=== PATIENT | male | born 1955 | race Caucasian/White ===

== ENCOUNTER 2019-11-01 19:06 | Emergency (ER) | payer MEDICARE, BC ==
[2019-11-01 19:50] VITALS: BP 147/85; PULSE 69; RESP 18; TEMP 98.2
--- NOTE | 2019-11-01 21:31 | ED ---
General Adult HPI - General Chief complaint: GI Bleed Stated complaint: rectal bleeding Time Seen by Provider: 11/01/19 20:31 Source: patient Mode of arrival: ambulatory Limitations: no limitations - History of Present Illness Initial comments: Patient is a 64-year-old male presenting to the emergency Department with complaints of possible hemorrhoids. Patient states he has a history of intermittent constipation. Patient states he has had 2 hard bowel movements the last few days. Patient then noticed some blood after he wiped. Patient states he doesn't history of hemorrhoids and feeling like this is similar. Patient denies being on blood thinners. He states there is no active bleeding and no more than a mild amount of blood on the tissue. He states he has been using preparation H for the last 2 days with minor improvement. He denies any abdominal pain, fever, nausea, vomiting. He has no other complaints at this time. Upon arrival to the ER his vital signs are stable. - Related Data Home Medications Medication Instructions Recorded Confirmed metFORMIN HCL [Glucophage] 500 mg PO BID 05/24/14 07/23/15 Clindamycin [Cleocin] 150 mg PO BID 07/23/15 07/23/15 Multivit-Min/FA/Lycopen/Lutein 1 each PO DAILY 07/23/15 07/23/15 [Centrum Silver Tablet] Peridex(Dose Unknown) 1 applicate PO BID 07/23/15 07/23/15 amLODIPine BESYLATE/BENAZEPRIL 1 cap PO HS 07/23/15 07/23/15 [amLODIPine BESYLATE/BENAZEPRIL 5-20 mg] Previous Rx's Medication Instructions Recorded Hydrocortisone Cream 1 applic TOPICAL BID 7 Days #1 tube 11/01/19 [Hydrocortisone 2.5% Cream] Allergies Allergy/AdvReac Type Severity Reaction Status Date / Time cephalexin Allergy Itching Verified 11/01/19 19:50 cyclobenzaprine Allergy Chest Pain Verified 07/24/15 13:36 morphine AdvReac Hallucinati Verified 07/24/15 13:36 ons roaches Allergy Unknown Uncoded 07/23/15 14:42 Review of Systems ROS Statement: Those systems with pertinent positive or pertinent negative responses have been documented in the HPI. ROS Other: All systems not noted in ROS Statement are negative. Past Medical History Past Medical History: Diabetes Mellitus, Hypertension, Sleep Apnea/CPAP/BIPAP Additional Past Medical History / Comment(s): constipation, non healing left jaw. carpel tunnel. History of Any Multi-Drug Resistant Organisms: None Reported Past Surgical History: Hernia Repair Additional Past Surgical History / Comment(s): benign tumor removed lt lower jaw and artifical jaw inserted. cataract- bilat, sinus surgery. carpel tunnel surgery right wrist 1969'. Past Anesthesia/Blood Transfusion Reactions: Motion Sickness Past Psychological History: Anxiety Smoking Status: Never smoker Past Alcohol Use History: None Reported Past Drug Use History: None Reported - Past Family History Father Family Medical History: Cancer, Diabetes Mellitus Mother Family Medical History: CVA/TIA General Exam - General Exam Comments Initial Comments: GENERAL: Well-appearing, well-nourished and in no acute distress. HEAD: Atraumatic, normocephalic. EYES: Pupils equal round and reactive to light, extraocular movements intact, sclera anicteric, conjunctiva are normal. ENT: Nares patent, oropharynx clear without exudates. Moist mucous membranes. NECK: Normal range of motion, supple without lymphadenopathy or JVD. LUNGS: Breath sounds clear to auscultation bilaterally and equal. No wheezes rales or rhonchi. HEART: Regular rate and rhythm without murmurs, rubs or gallops. ABDOMEN: Soft, nontender, normoactive bowel sounds. No guarding, no rebound. No masses appreciated. EXTREMITIES: Normal range of motion, no pitting or edema. No clubbing or cyanosis. NEUROLOGICAL: Normal speech, normal gait. PSYCH: Normal mood, normal affect. SKIN: Warm, Dry, normal turgor, no rashes or lesions noted. Limitations: no limitations Rectal exam: Present: normal rectal tone, hemorrhoids (Internal and external hemorrhoid noticed. Very minor bleeding from the hemorrhoid.). Absent: fecal impaction, tenderness Course Vital Signs 11/01/19 19:45 Temperature 98.2 F Pulse Rate 69 Respiratory 18 Rate Blood Pressure 147/85 O2 Sat by Pulse 98 Oximetry Medical Decision Making - Medical Decision Making She is a 64-year-old male presenting with possible bleeding from hemorrhoids. He has a history of constipation as well as hemorrhoids. On exam patient has an internal and external hemorrhoid that has a very minor amount of blood in the area. Very minimal pain with palpation. Normal rectal tone. I discussed with patient that his constipation probably triggered his external hemorrhoids. Patient has been using preparation H and he will be given a prescription for hydrocortisone 2.5%. He will follow up with his PCP. He is in agreement with this plan of care. He is stable for discharge. Return parameters were discussed with the patient and he verbalized understanding. Disposition Clinical Impression: Bleeding hemorrhoids Disposition: HOME SELF-CARE Condition: Stable Instructions (If sedation given, give patient instructions): Hemorrhoids (ED) Additional Instructions: Please return to the Emergency Department if symptoms worsen or any other concerns. Use topical hydrocortisone cream as discussed. Continue with MiraLAX daily for 2-3 weeks. Follow-up with PCP. Prescriptions: Hydrocortisone Cream [Hydrocortisone 2.5% Cream] 1 applic TOPICAL BID 7 Days #1 tube Is patient prescribed a controlled substance at d/c from ED?: No Referrals: Priyank Mcnulty DO [Primary Care Provider] - 1-2 days
== END 2019-11-01 21:43 | disposition home or self-care (01) ==
LOC: EC 19:06
DX: K64.4 Residual hemorrhoidal skin tags (principal); K64.8 Other hemorrhoids; E11.9 Type 2 diabetes mellitus without complications; I10 Essential (primary) hypertension; G47.30 Sleep apnea, unspecified; Z88.1 Allergy status to other antibiotic agents; Z88.5 Allergy status to narcotic agent; Z88.8 Allergy status to other drugs, medicaments and biological substances; Z91.048 Other nonmedicinal substance allergy status; Z79.84 Long term (current) use of oral hypoglycemic drugs; Z79.899 Other long term (current) drug therapy; Z99.89 Dependence on other enabling machines and devices
CPT/HCPCS: 99283

== ENCOUNTER → 2023-02-26 | Outpatient (CLI) | payer MEDICARE, BC ==
--- NOTE | 2023-02-26 12:50 | P.PN ---
Subjective DATE: 02/26/2023 FOLLOW UP VISIT. Patient with obstructive sleep apnea hypopnea syndrome return to sleep center for follow-up visit. Recently patient had sleep study which documented obstructive sleep apnea hypopnea syndrome. Patient was initiated on PAP therapy and today is first visit after treatment was started. Patient was able to use PAP equipment every night for the whole night. Isolated results of sleep studies to patient in details The patient does not have significant problems with the mask, PAP pressure and humidification. Gridley sleepiness scale is increased to 17. I checked information from PAP unit. BPAP unit pressure maximal inspiratory pressure 20, minimal expiratory pressure 8, pressure-support 4, average pressure 14.5 /10.5 cm H2O. Usage is 97% and 77 % for more then 4 hours, average 6 hours per night. Leak is in high range of 39.5 l/m. Apnea Hypopnea Index is 8.8, which showed significant improvements comparing with the apnea-hypopnea index during diagnostic sleep study when it was 44.2 MEDICATIONS:1. Esciitalopram 10 mg once a day 2. Meclizine 3. Aspirin 81 mg once a day 4. Donepezil 10 mg once a day During physical exam: GENERAL: A pleasant patient without any distress. VITAL SIGNS: BP 120/74, HR 63, RR 16, weight 216.0, temperature 97.5, oxygen saturation at room air 97%. HEENT: PERRLA, EOMI.low position of soft palate, Mallapati 4 . NECK: Supple. No JVD. LUNGS: Clear to percussion and to auscultation. Good air exchange. No wheezing or rhonchi. HEART: S1, S2 regular. ABDOMEN: Soft and nontender.[] EXTREMITIES: No clubbing or cyanosis. INTELLIGENCE MANAGER: Awake, alert, and oriented x3. No focal deficit. Impressions: 1. Obstructive sleep apnea-hypopnea syndrome. Patient demonstrated great compliance with treatment, benefiting from treatment. 2. Episodes of vertigo. 3. History of Parkinson's disease. 4. History of depression. Plan: 1. Continue using PAP equipment every night for the whole night. Patient should use chinstrap additionally to nasal pillow mask to prevent leak. 2. To change air filter at least 1-2 times per month. 3. PAP unit should stay lower then position of the head. 4. Advised patient to remove all remaining water from humidifier canister daily and make it dry after each usage. Refill canister with fresh distilled water before each usage. 5. Sleep hygiene with regular time in bed for at least 8 hours. 6. Precautions related to driving. No driving if feel any sleepiness. 7. I will maintain prescription for PAP supplies including mask, tube, filters. 8. Follow up visit in 6 months or earlier if patient has any problems. 9. Watching weight. Thank you very much for allowing me to participate in the management of your patient. David Sanabria MD, PhD, FAASM. Diplomat of [place] [employer], Sleep Medicine Board by [place] [employer] [facility] [place]
== END ==
LOC: 3 N SLEEP 12:14
PROVIDERS: ATTEND Internal Medicine
DX: G47.33 Obstructive sleep apnea (adult) (pediatric) (principal); G20 Parkinson's disease; Z79.899 Other long term (current) drug therapy; F32.A Depression, unspecified; R42 Dizziness and giddiness; Z99.89 Dependence on other enabling machines and devices; Z79.82 Long term (current) use of aspirin; Z88.1 Allergy status to other antibiotic agents; Z88.5 Allergy status to narcotic agent; Z88.8 Allergy status to other drugs, medicaments and biological substances
CPT/HCPCS: 99212

== ENCOUNTER 2023-06-03 14:31 | Inpatient (IN) | payer MEDICARE, BC ==
--- NOTE | 2023-06-03 15:13 | CT ---
EXAMINATION TYPE: CT brain wo con DATE OF EXAM: 06/03/2023 COMPARISON: None HISTORY: Altered mental status CT DLP: 1100.4 mGycm Automated exposure control for dose reduction was used. FINDINGS: Mild to moderate generalized degenerative change. Low attenuation in the white matter compatible with remote or vascular ischemic disease. Hyperostosis of the calvarium. Craniocervical junction maintain ed. Sella turcica is normal. There is no evidence of acute hemorrhage or mass. Orbits are symmetric. Calcifications in the basal ganglia noted. IMPRESSION: MILD TO MODERATE DEGENERATIVE CHANGE WITH NO EVIDENCE OF ACUTE HEMORRHAGE OR MASS EFFECT.
[2023-06-03 16:10] LABS: Basophils % (A) 0 %; Eosinophils # (A) 0.1 k/uL (0-0.7); Eosinophils % (A) 1 %; HCT 44.5 % (39.0-53.0); HGB 14.9 gm/dL (13.0-17.5); Lymphocytes # (A) 1.2 k/uL (1.0-4.8); Lymphocytes % (A) 15 %; MCH 28.8 pg (25.0-35.0); MCHC 33.6 g/dL (31.0-37.0); MCV 85.9 fL (80.0-100.0); Mean Platelet Volume 6.9; Monocytes # (A) 0.6 k/uL (0-1.0); Monocytes % (A) 7 %; Neutrophils # (A) 6.4 k/uL (1.3-7.7); Neutrophils % (A) 76 %; Platelet Count 190 k/uL (150-450); RBC 5.18 m/uL (4.30-5.90); WBC 8.4 k/uL (3.8-10.6)
--- NOTE | 2023-06-03 16:10 | ED ---
General Adult HPI - General Chief complaint: Neuro Symptoms/Deficit Stated complaint: poss stroke Time Seen by Provider: 06/03/23 15:12 Source: patient, EMS, RN notes reviewed, old records reviewed Mode of arrival: EMS Limitations: no limitations - History of Present Illness Initial comments: 67-year-old male history of Parkinson's presents with an episode of dizziness, and slurred speech. Patient was at physical therapy which she attends regularly. This episode occurred while he was standing in line waiting to register. Patient states he does have speech abnormalities which is typically worse in the morning and he believes is related to his Parkinson's. He is also had some increased confusion and memory loss issues according to his daughter which is been occurring more frequently as of late. Patient's symptoms resolved time my evaluation. He states he feels fine currently. - Related Data Home Medications Medication Instructions Recorded Confirmed amLODIPine BESYLATE/BENAZEPRIL 1 cap PO HS 07/23/15 06/03/23 [amLODIPine BESYLATE/BENAZEPRIL 5-20 mg] Aspirin EC [Ecotrin Low Dose] 81 mg PO DAILY 01/09/22 06/03/23 Cholecalciferol [Vitamin D3 (25 25 mcg PO DAILY 01/09/22 06/03/23 Mcg = 1000 Iu)] Donepezil [Aricept] 10 mg PO HS 01/09/22 06/03/23 Escitalopram [Lexapro] 10 mg PO DAILY 01/09/22 06/03/23 Meclizine HCl 25 mg PO DAILY 01/09/22 06/03/23 Prevagen 1 cap PO DAILY 01/09/22 06/03/23 Vit C/E/Zn/Coppr/Lutein/Zeaxan 1 cap PO DAILY 01/09/22 06/03/23 [Preservision Areds 2 Softgel] Allergies Allergy/AdvReac Type Severity Reaction Status Date / Time cephalexin Allergy Itching Verified 06/03/23 16:36 cockroach Allergy Unknown Verified 06/03/23 16:36 cyclobenzaprine Allergy Chest Pain Verified 06/03/23 16:36 morphine AdvReac Hallucinati Verified 06/03/23 16:36 ons Review of Systems ROS Statement: Those systems with pertinent positive or pertinent negative responses have been documented in the HPI. ROS Other: All systems not noted in ROS Statement are negative. Past Medical History Past Medical History: Diabetes Mellitus, Hypertension, Sleep Apnea/CPAP/BIPAP Additional Past Medical History / Comment(s): constipation, non healing left jaw. carpel tunnel. parkinsons History of Any Multi-Drug Resistant Organisms: None Reported Past Surgical History: Hernia Repair Additional Past Surgical History / Comment(s): benign tumor removed lt lower jaw and artifical jaw inserted. cataract- bilat, sinus surgery. carpel tunnel surgery right wrist 1969's. Past Anesthesia/Blood Transfusion Reactions: Motion Sickness Past Psychological History: Anxiety Smoking Status: Never smoker Past Alcohol Use History: None Reported Past Drug Use History: None Reported - Past Family History Father Family Medical History: Cancer, Diabetes Mellitus Mother Family Medical History: CVA/TIA General Exam General appearance: alert, in no apparent distress Head exam: Present: atraumatic, normocephalic Eye exam: Present: normal appearance, PERRL ENT exam: Present: normal exam Neck exam: Present: normal inspection. Absent: tenderness, meningismus Respiratory exam: Present: normal lung sounds bilaterally. Absent: respiratory distress, wheezes Cardiovascular Exam: Present: regular rate, normal rhythm GI/Abdominal exam: Present: soft. Absent: distended, tenderness, guarding Extremities exam: Present: normal inspection, normal capillary refill Neurological exam: Present: alert, oriented X3, CN II-XII intact, other (No limb ataxia). Absent: motor sensory deficit Psychiatric exam: Present: normal affect, normal mood Skin exam: Present: warm, dry, intact. Absent: cyanosis, diaphoretic Course Vital Signs 06/03/23 14:42 Temperature 98.1 F Pulse Rate 64 Respiratory 18 Rate Blood Pressure 113/67 O2 Sat by Pulse 98 Oximetry Medical Decision Making - Medical Decision Making Was pt. sent in by a medical professional or institution (, PA, EXPRESSIVE MUSIC THERAPIST, urgent care, hospital, or usp...) When possible be specific @ -No Did you speak to anyone other than the patient for history (EMS, parent, family, police, friend...)? What history was obtained from this source @ -No Did you review nursing and triage notes (agree or disagree)? Why? @ -I reviewed and agree with nursing and triage notes Were old charts reviewed (outside hosp., previous admission, EMS record, old EKG, old radiological studies, urgent care reports/EKG's, usp records)? Report findings @ -No old charts were reviewed Differential Diagnosis (chest pain, altered mental status, abdominal pain women, abdominal pain men, vaginal bleeding, weakness, fever, dyspnea, syncope, headache, dizziness, GI bleed, back pain, seizure, CVA, palpatations, mental health, musculoskeletal)? @ Differential CVA Ischemic stroke, hemorrhagic stroke, brain tumor, atypical migraine, Wernicke's encephalopathy, seizure, multiple sclerosis, meningitis, encephalitis, hypoglycemia, Guillain-Blum, electrolytes disturbance, myasthenia gravis.... This is not meant to be an all-inclusive list EKG interpreted by me (3pts min.). @ Sinus rhythm low voltage, right bundle branch block, rate of 69, AK interval 164, QRS duration 117, QTC [address] segment elevation. X-rays interpreted by me (1pt min.). @ -None done CT interpreted by me (1pt min.). @CT brain showed chronic changes without acute hemorrhage or mass effect U/S interpreted by me (1pt. min.). @ -None done What testing was considered but not performed or refused? (CT, X-rays, U/S, labs)? Why? @ -None What meds were considered but not given or refused? Why? @ -None Did you discuss the management of the patient with other professionals (professionals i.e. , PA, EXPRESSIVE MUSIC THERAPIST, lab, RT, psych nurse, child welfare social worker, digital performance analyst, teacher, equal opportunity officer, case management coordinator)? Give summary @Case discussed with Dr. Mcnulty Was smoking cessation discussed for >3mins.? @ -No Was critical care preformed (if so, how long)? @ -No Were there social determinants of health that impacted care today? How? (Homelessness, low income, unemployed, alcoholism, drug addiction, transportation, low edu. Level, literacy, decrease access to med. care, half-way, rehab)? @ -No Was there de-escalation of care discussed even if they declined (Discuss DNR or withdrawal of care, Hospice)? DNR status @ -No What co-morbidities impacted this encounter? (DM, HTN, Smoking, COPD, CAD, Cancer, CVA, ARF, Chemo, Hep., AIDS, mental health diagnosis, sleep apnea, morbid obesity)? @ -Parkinson's disease Was patient admitted / discharged? Hospital course, mention meds given and route, prescriptions, significant lab abnormalities, going to OR and other pertinent info. @ -67-year-old male with an episode of dizziness, gait instability and dysarthria. This occurred prior to arrival and it resolved. He receives CBC, CMP, EKG, and CT brain in the emergency prompt. Workup is unremarkable at this time. He is given an aspirin and he will be observed for further stroke evaluation. Neurology will be placed on consult. Undiagnosed new problem with uncertain prognosis? @ -No Drug Therapy requiring intensive monitoring for toxicity (Heparin, Nitro, Insulin, Cardizem)? @ -No Were any procedures done? @ -No Diagnosis/symptom? @TIA Acute, or Chronic, or Acute on Chronic? @Acute Uncomplicated (without systemic symptoms) or Complicated (systemic symptoms)? @Complicated Side effects of treatment? @ -No Exacerbation, Progression, or Severe Exacerbation? @ -No Poses a threat to life or bodily function? How? (Chest pain, [place], [place], pneumonia, PE, COPD, DKA, ARF, appy, cholecystitis, CVA, Diverticulitis, Homicidal, Suicidal, threat to staff... and all critical care pts) @Yes, risk of CVA - Lab Data Result diagrams: 06/03/23 15:37 06/03/23 18:44 Lab Results 06/03/23 06/03/23 06/03/23 Range/Units 15:37 15:37 18:44 WBC 8.4 (3.8-10.6) k/uL RBC 5.18 (4.30-5.90) m/uL Hgb 14.9 (13.0-17.5) gm/dL Hct 44.5 (39.0-53.0) % MCV 85.9 (80.0-100.0) fL MCH 28.8 (25.0-35.0) pg MCHC 33.6 (31.0-37.0) g/dL RDW 13.0 (11.5-15.5) % Plt Count 190 (150-450) k/uL MPV 6.9 Neutrophils % 76 % Lymphocytes % 15 % Monocytes % 7 % Eosinophils % 1 % Basophils % 0 % Neutrophils # 6.4 (1.3-7.7) k/uL Lymphocytes # 1.2 (1.0-4.8) k/uL Monocytes # 0.6 (0-1.0) k/uL Eosinophils # 0.1 (0-0.7) k/uL Basophils # 0.0 (0-0.2) k/uL PT 11.9 (9.0-12.0) sec INR 1.2 H (<1.2) APTT 26.0 (22.0-30.0) sec Sodium 139 (137-145) mmol/L Potassium 4.0 (3.5-5.1) mmol/L Chloride 103 (98-107) mmol/L Carbon Dioxide 26 (22-30) mmol/L Anion Gap 10 mmol/L BUN 23 H (9-20) mg/dL Creatinine 1.12 (0.66-1.25) mg/dL Est GFR (CKD-EPI)AfAm 77 (>60 ml/min/1.73 sqM) Est GFR (CKD-EPI)NonAf 67 (>60 ml/min/1.73 sqM) Glucose 99 (74-99) mg/dL Calcium 8.9 (8.4-10.2) mg/dL Magnesium 2.0 (1.6-2.3) mg/dL Total Bilirubin 0.9 (0.2-1.3) mg/dL AST 29 (17-59) U/L ALT 20 (4-49) U/L Alkaline Phosphatase 88 (38-126) U/L Total Protein 7.2 (6.3-8.2) g/dL Albumin 4.0 (3.5-5.0) g/dL Disposition Clinical Impression: Transient cerebral ischemia Disposition: ADMITTED IP TO THIS HOSP Condition: Stable Is patient prescribed a controlled substance at d/c from ED?: No Referrals: Priyank Mcnulty DO [Primary Care Provider] - 1-2 days Time of Disposition: 19:54
[2023-06-03 16:29] LABS: INR 1.2 (<1.2); Prothrombin Time 11.9 sec (9.0-12.0)
[2023-06-03 19:22] LABS: ALT 20 U/L (4-49); AST 29 U/L (17-59); African American GFR (CKD) 77 (>60 ml/min/1.73 sqM); Alkaline Phosphatase 88 U/L (38-126); Anion Gap 10 mmol/L; Blood Urea Nitrogen 23 mg/dL (9-20); Calcium 8.9 mg/dL (8.4-10.2); Carbon Dioxide 26 mmol/L (22-30); Chloride 103 mmol/L (98-107); Glucose 99 mg/dL (74-99); Non-African American GFR(CKD) 67 (>60 ml/min/1.73 sqM); Sodium 139 mmol/L (137-145); Total Bilirubin 0.9 mg/dL (0.2-1.3); Total Protein 7.2 g/dL (6.3-8.2)
[2023-06-03] MEDS ORDERED: ASPIRIN 325 MG TAB PO STA (19:41)
[2023-06-03 20:12] LABS: Appearance,Urine Clear (Clear); Bilirubin,Urine Negative (Negative); Blood,Urine Negative (Negative); Color,Urine Yellow; Glucose,Urine (UA) Negative (Negative); Ketones,Urine Trace (Negative); Leukocyte Esterase,Urine Negative (Negative); Nitrite,Urine Negative (Negative); Protein,Urine Negative (Negative); Specific Gravity,Urine 1.023 (1.001-1.035); Urobilinogen,Urine <2.0 mg/dL (<2.0)
--- NOTE | 2023-06-03 20:39 | US ---
EXAMINATION TYPE: US carotid duplex BILAT DATE OF EXAM: 06/03/2023 COMPARISON: NONE CLINICAL INDICATION: Male, 67 years old with history of Stenosis; possible stroke TECHNIQUE: Carotid duplex ultrasound examination. Indirect Doppler criteria was utilized. FINDINGS: EXAM MEASUREMENTS: RIGHT: Peak Systolic Velocity (PSV) cm/sec ----- Right CCA: 109.7 ----- Right ICA: 64.4 ----- Right ECA: 69.8 ICA/CCA ratio: 0.6 RIGHT: End Diastole cm/sec ----- Right CCA: 24.1 ----- Right ICA: 17.6 ----- Right ECA: 11.5 LEFT: Peak Systolic Velocity (PSV) cm/sec ----- Left CCA: 65.9 ----- Left ICA: 68.5 ----- Left ECA: 51.6 ICA/CCA ratio: 1.0 LEFT: End Diastole cm/sec ----- Left CCA: 14.1 ----- Left ICA: 12.8 ----- Left ECA: 12.0 VERTEBRALS (direction of flow): Right Vertebral: Not well visualized Left Vertebral: Antegrade Rhythm: Normal TECHNICAL SERVICES LIBRARIAN NOTES: No plaque seen IMPRESSION: Less than 50% stenosis of the bilateral carotid bifurcations. Criteria for Assigning % of Stenosis / Diameter reduction (Estimation based on the indirect measurements of the internal carotid artery velocities (ICA PSV). 1. Normal (no stenosis)=ICA PSV < 125 cm/s: ratio < 2.0: ICA EDV<40 cm/s. 2. Less than 50% stenosis=ICA PSV < 125 cm/s: ratio < 2.0: ICA EDV<40 cm/s. 3. 50 to 69% stenosis=ICA PSV of 125 to 230 cm/s: ration 2.0 ? 4.0: ICA EDV 40-100 cm/s. 4. Greater than 70% stenosis to near occlusion= ICA PSV > 230 cm/s: ratio > 4.0: ICA EDV > 100 cm/s. 5. Near occlusion= ICA PSV velocities may be low or undetectable: variable ratio and ICA EDV. 6. Total occlusion=unable to detect flow.
[2023-06-04] MEDS ORDERED: LORazepam 2 MG/ML INJ IV STA (08:28)
[2023-06-04] MEDS ORDERED: ASPIRIN 325 MG TAB PO SCH (09:00)
[2023-06-04 09:05] LABS: VLDL Calculation 13.12 mg/dL (5.00-40.00)
--- NOTE | 2023-06-04 10:54 | MR ---
EXAMINATION TYPE: MR brain wo con DATE OF EXAM: 06/04/2023 COMPARISON: NONE HISTORY: Neuro deficit, acute, stroke suspected TECHNIQUE: T1-weighted sagittal, T2, FLAIR, and diffusion axial, and T2 coronal coronal views of the brain are submitted. FINDINGS: There is no evidence of acute ischemia. There is mild to moderate generalized degenerative change. Th ere is focal and diffuse areas of abnormal signal in the white matter most compatible with remote isc hemic white matter change. Changes of chronic sinusitis. Orbits are symmetric. Craniocervical junction maintained. IMPRESSION: 1. No acute intracranial process. 2. Degenerative and remote ischemic white matter change.
--- NOTE | 2023-06-04 12:37 | P.CNNES ---
History of Present Illness Consult date: 06/04/23 Requesting physician: Arsalan Perry Reason for Consult: TIA History of Present Illness: This is a 67-year-old gentleman with presented emergency department because of unsteady gaits and speech difficulty. Some of the history is obtained from patient's daughter who was at bedside and also medical records. According to the daughter the patient has underlying history of Parkinson's disease and follows up with Dr. Cerna and the patient was working with therapy and is seems in therapy yesterday patient had unsteady gait and was walking backwards and has some speech difficulty with slurring of the speech that is noted at therapy. Patient does not have any focal weakness was reported. Per the daughter the pa morgan does not have any history of stroke or any seizures. The patient he has tremor mostly when he is trying the to hold a cup or feed himself but according to the daughter also he has some tremor sometimes at rest and it seems that the per the daughter he was evaluated by Dr. Rodriguez his neurologist and was notified he has Parkinson's disease and the upon seeing the medication lists it does not seem the patient is not on any Parkinson's disease medication. Patient is on Aricept for memory loss. Patient is on home dose of aspirin 81 mg daily and it is reported in the ED note the patient had dizziness and dysarthria with gait instability. It resolved prior to arrival. Some of the workup during his hospital visit consisted of: CBC with differential is unremarkable Glucose is 99 AST ALT, sodium, calcium magnesium are within normal limits Lipid panel is triglycerides 65, cholesterol 129, LDLs 81 and HDL is 34. CT of the head is reported as mild to moderate degenerative change with no evidence of acute hemorrhage or mass effect. Cardiac duplex is reported as less than 50% stenosis bilateral carotid bifurcation. MR the brain is reported as no acute intracranial process. Degenerative and remote ischemic white matter changes. I personally reviewed the MRI and I agree there is no acute or subacute ischemia. Review of Systems The positive and negative as per HPI. Past Medical History Past Medical History: Diabetes Mellitus, Hypertension, Sleep Apnea/CPAP/BIPAP Additional Past Medical History / Comment(s): constipation, non healing left jaw. carpel tunnel. parkinsons History of Any Multi-Drug Resistant Organisms: None Reported Past Surgical History: Hernia Repair Additional Past Surgical History / Comment(s): benign tumor removed lt lower jaw and artifical jaw inserted. cataract- bilat, sinus surgery. carpel tunnel surgery right wrist . Past Anesthesia/Blood Transfusion Reactions: Motion Sickness Past Psychological History: Anxiety Smoking Status: Never smoker Past Alcohol Use History: None Reported Past Drug Use History: None Reported - Past Family History Father Family Medical History: Cancer, Diabetes Mellitus Mother Family Medical History: CVA/TIA Medications and Allergies Home Medications Medication Instructions Recorded Confirmed Type amLODIPine BESYLATE/BENAZEPRIL 1 cap PO HS 07/23/15 06/03/23 History [amLODIPine BESYLATE/BENAZEPRIL 5-20 mg] Aspirin EC [Ecotrin Low Dose] 81 mg PO DAILY 01/09/22 06/03/23 History Cholecalciferol [Vitamin D3 (25 25 mcg PO DAILY 01/09/22 06/03/23 History Mcg = 1000 Iu)] Donepezil [Aricept] 10 mg PO HS 01/09/22 06/03/23 History Escitalopram [Lexapro] 10 mg PO DAILY 01/09/22 06/03/23 History Meclizine HCl 25 mg PO DAILY 01/09/22 06/03/23 History Prevagen 1 cap PO DAILY 01/09/22 06/03/23 History Vit C/E/Zn/Coppr/Lutein/Zeaxan 1 cap PO DAILY 01/09/22 06/03/23 History [Preservision Areds 2 Softgel] Allergies Allergy/AdvReac Type Severity Reaction Status Date / Time cephalexin Allergy Itching Verified 06/03/23 16:36 cockroach Allergy Unknown Verified 06/03/23 16:36 cyclobenzaprine Allergy Chest Pain Verified 06/03/23 16:36 morphine AdvReac Hallucinati Verified 06/03/23 16:36 ons Physical Examination - Vital Signs Vital Signs: Vital Signs Temp Pulse Resp BP Pulse Ox 06/04/23 10:29 58 L 14 135/76 95 06/04/23 09:33 98.8 F 62 16 133/83 97 06/04/23 07:56 98.1 F 59 L 14 136/86 97 06/04/23 04:54 61 16 137/78 97 06/04/23 01:00 59 L 18 116/73 94 L 06/03/23 14:42 98.1 F 64 18 113/67 98 GENERAL: The patient is lying in bed and is not in acute distress. NEUROLOGICAL: Higher mental function: The patient is awake, alert, oriented to self, place and correctly stated the month but not year.. Patient is following simple commands. Somewhat slow responding. No aphasia and no neglect. Cranial nerves: The pupils are round, equal and reactive to light. Visual flores are full to confrontation throughout. Extraocular movement is intact no nystagmus is noted. Facial sensation is normal to touch throughout. The facial strength is normal throughout. Hearing is severely decreased bilaterally to hand rub. Tongue is midline and moved [id number] without any difficulty. No dysarthria is noted. Shoulder shrug is normal bilaterally. Motor: The strength is 5 over 5 throughout. Normal tone and bulk. No resting tremor or cogwheel ridigity and normal tone at wrist and elbow flexion/extension. Cerebellum: Normal finger to nose bilaterally. Sensation: Sensation is normal to touch throughout. Reflexes (right/left): 2+ uppers while lowers are 1+. Plantars are mute bilaterally. Results - Laboratory Findings CBC and BMP: 06/03/23 15:37 06/03/23 18:44 Abnormal Lab Findings: Abnormal Labs 06/03/23 06/03/23 06/03/23 15:37 18:44 18:44 INR 1.2 H BUN 23 H HDL Cholesterol 34.90 L Urine Ketones 06/03/23 19:50 INR BUN HDL Cholesterol Urine Ketones Trace H Assessment and Plan Assessment: This is a 67-year-old gentleman who was at therapy on 06/03/2023 when he developed dysarthria and unsteady gait with dizziness and his symptoms resolved prior to arrival to the ED. Per the daughter patient has history of Parkinson's disease diagnosed by his neurologist but is not on any medication. It seems that he has tremor predominantly with holding things but per daughter has also some tremor at rest. Transient episode of dysarthria with unsteady gait and dizzy probable TIA. History of reported Parkinson's disease that was diagnosed by his neurologist according to the daughter but it does not seem that he is on any medication Underlying history of dementia Diabetes mellitus Hypertension Sleep apnea Plan: MRI the brain is negative for acute or subacute ischemia. I ordered CT cervical spine since patient was having some neck pain. Patient was started on aspirin 325 daily. It seems patient was on aspirin 81 mg at home but will reverify that. In addition I start the patient on Plavix 75 mg daily for his concern of TIA. Showed the patient on Lipitor 10 mg daily at bedtime for signature prophylaxis 2-D echo is pending I ordered TSH, vitamin B12, folate, hemoglobin A1c and orthostatic vitals. Continue neuro checks Cardiac monitoring Consulted PT OT and YOUTH OFFICER The patient's diagnosis of Parkinson's disease we'll defer that to management to his neurologist as an outpatient I did not see any evidence of resting tremor or any tremor with holding objects. I notified the daughter that he needs to follow-up with the neurologist as an outpatient for further management. Defer the rest of the medical management to primary team DVT prophylaxis I started the patient on subcu heparin 5000 Hz every 12 hours The plan was discussed with the patient and his daughter was at bedside Thank you for the consultation. Time with Patient: Greater than 30
[2023-06-04] MEDS: CLOPIDOGREL 75 MG TAB PO SCH (13:50)
--- NOTE | 2023-06-04 19:53 | CA ---
Transthoracic Echo Report Name: Matthieu Baird Age: 67 Gender: M : 1955 Exam Date: 06/04/2023 14:24 Exam Location: [facility] Ht (in): 70 Wt (lb): 217 Ordering Physician: Arsalan Perry MD Attending/Referring Phys: [id number], [place] [employer] Operator Adán Lowry Procedure CPT: Indications: Thrombus Cardiac Hx: Technical Quality: Fair Contrast 1: Total Dose (mL): Contrast 2: Total Dose (mL): MEASUREMENTS (Male / Female) Normal Values 2D ECHO LV Diastolic Diameter PLAX 5.1 cm 4.2 - 5.9 / 3.9 - 5.3 cm LV Systolic Diameter PLAX 3.6 cm IVS Diastolic Thickness 1.1 cm 0.6 - 1.0 / 0.6 - 0.9 cm LVPW Diastolic Thickness 1.2 cm 0.6 - 1.0 / 0.6 - 0.9 cm LV Relative Wall Thickness 0.5 RV Internal Dim ED PLAX 2.5 cm LVOT Diameter 2.2 cm Aortic Root Diameter 3.3 cm LA Systolic Diameter LX 2.7 cm 3.0 - 4.0 / 2.7 - 3.8 cm LV Diastolic Volume MOD BP 61.9 cm??? 67 - 155 / 56 - 104 cm??? LV Systolic Volume MOD BP 27.0 cm??? 22 - 58 / 19 - 49 cm??? LV Ejection Fraction MOD BP 56.3 % >= 55 % LV Cardiac Index MOD BP 921.3 cm???/min???m??? LV Diastolic Volume MOD 4C 62.8 cm??? LV Systolic Volume MOD 4C 27.5 cm??? LV Ejection Fraction MOD 4C 56.3 % LV Cardiac Index MOD 4C 933.8 cm???/min???m??? LV Diastolic Length 4C 7.6 cm LV Systolic Length 4C 6.5 cm LV Diastolic Volume MOD 2C 60.9 cm??? LV Systolic Volume MOD 2C 24.3 cm??? LV Ejection Fraction MOD 2C 60.0 % LV Cardiac Index MOD 2C 966.7 cm???/min???m??? LV Diastolic Length 2C 7.5 cm LV Systolic Length 2C 6.0 cm LA Volume 41.5 cm??? 18 - 58 / 22 - 52 cm??? LA Volume Index 18.6 cm???/m??? 16 - 28 cm???/m??? Ascending Aorta Diameter 3.2 cm DOPPLER AV Peak Velocity 111.5 cm/s AV Peak Gradient 5.0 mmHg LVOT Peak Velocity 93.1 cm/s LVOT Peak Gradient 3.5 mmHg LVOT Velocity Time Integral 19.6 cm LVOT Stroke Volume 73.5 cm??? LVOT Stroke Volume Index 34.0 ml/m??? LVOT Cardiac Index 1942.1 cm???/min???m??? AV Area Cont Eq pk 3.1 cm??? MV Peak Velocity 94.9 cm/s MV Peak Gradient 3.6 mmHg MV Mean Velocity 33.9 cm/s MV Mean Gradient 0.6 mmHg MV Velocity Time Integral 29.7 cm MR Peak Velocity 209.8 cm/s MR Peak Gradient 17.6 mmHg Mitral E Point Velocity 65.7 cm/s Mitral A Point Velocity 88.2 cm/s Mitral E to A Ratio 0.7 MV Deceleration Time 320.6 ms MV E' Velocity 9.1 cm/s Mitral E to MV E' Ratio 7.3 TR Peak Velocity 249.6 cm/s TR Peak Gradient 24.9 mmHg Right Ventricular Systolic Press 29.9 mmHg PV Peak Velocity 73.0 cm/s PV Peak Gradient 2.1 mmHg FINDINGS Left Ventricle Normal LV size and wall thickness. Left ventricular ejection fraction is estimated at 50-55 %. Right Ventricle Normal right ventricular size. RVSP= 30mmHg. Right Atrium Normal right atrial size. Left Atrium Normal left atrial size. LA volume index= 19ml/m2 Mitral Valve Structurally normal mitral valve. No mitral regurgitation. Aortic Valve Trileaflet aortic valve. No aortic valve stenosis or regurgitation. Tricuspid Valve Structurally normal tricuspid valve. Trace TR. Pulmonic Valve Pulmonic valve not well visualized. No pulmonic regurgitation. Pericardium Normal pericardium. Aorta Normal size aortic root and proximal ascending aorta. CONCLUSIONS Preserved LV size and function with possible septal hypokinesis/septal bounce Previewed by: Dr. Quinn Jamil MD (Electronically Signed) Final Date: 04 June 2023 19:52
[2023-06-04] MEDS ORDERED: NON FORMULARY DRUG (Prevagen 1 CAP) PO SCH (20:15)
[2023-06-04] MEDS ORDERED: LORazepam 2 MG/ML INJ IV PRN (22:00)
[2023-06-04] MEDS: amLODIPine 5 MG TAB PO SCH (22:17)
[2023-06-04] MEDS: lisinopriL 20 MG TAB PO SCH (22:18)
[2023-06-04] MEDS: CHOLECALCIFEROL 25 MCG (1000 IU) TABLET PO SCH (22:50)
[2023-06-04] MEDS: PANTOPRAZOLE 40 MG/10 ML VIAL IVP SCH (22:50)
[2023-06-04] MEDS: VIT A,C & E-LUTEIN-MINERALS 1 EACH TAB PO SCH (22:50)
[2023-06-04] MEDS: ASPIRIN 81 MG PO SCH (22:50)
[2023-06-04] MEDS: ESCITALOPRAM 10 MG TAB PO SCH (22:50)
[2023-06-04] MEDS: ATORVASTATIN 10 MG TAB PO SCH (22:50)
[2023-06-04] MEDS: DONEPEZIL 10 MG TAB PO SCH (22:50)
[2023-06-04] MEDS: HEPARIN SODIUM,PORCINE 5,000 UNIT/ML 1 ML VIAL SQ SCH (22:51)
[2023-06-04] MEDS: MECLIZINE 25 MG TAB PO SCH (22:51)
[2023-06-05] MEDS: ASPIRIN 81 MG PO SCH (09:22)
[2023-06-05] MEDS: CLOPIDOGREL 75 MG TAB PO SCH (09:22)
[2023-06-05] MEDS: VIT A,C & E-LUTEIN-MINERALS 1 EACH TAB PO SCH (09:22)
[2023-06-05] MEDS: ESCITALOPRAM 10 MG TAB PO SCH (09:22)
[2023-06-05] MEDS: PANTOPRAZOLE 40 MG/10 ML VIAL IVP SCH (09:22)
[2023-06-05] MEDS: MECLIZINE 25 MG TAB PO SCH (09:22)
[2023-06-05] MEDS: HEPARIN SODIUM,PORCINE 5,000 UNIT/ML 1 ML VIAL SQ SCH ×2 (09:22→20:16)
[2023-06-05] MEDS: CHOLECALCIFEROL 25 MCG (1000 IU) TABLET PO SCH (09:22)
[2023-06-05 09:30] VITALS: BMI 31.1
--- NOTE | 2023-06-05 12:49 | P.PN ---
Subjective Progress Note Date: 06/05/23 I am following-up with patient and he is accompanied with his daughter who states her father continues to be back to baseline. She stated he notified her he has been have speech difficulty recently for sometime. Objective - Vital Signs Vital signs: Vital Signs Temp 98 F 06/05/23 12:23 Pulse 86 06/05/23 12:23 Resp 17 06/05/23 12:23 BP 120/75 06/05/23 12:23 Pulse Ox 94 L 06/05/23 12:23 FiO2 Intake & Output 06/04/23 06/05/23 06/05/23 18:59 06:59 18:59 Intake Total 0 Output Total 140 150 Balance -140 -150 Weight 98.43 kg 98.43 kg Intake: Oral 0 Output: Urine 140 150 Other: Voiding Method Urinal Urinal - Exam GENERAL: The patient is lying in bed and is not in acute distress. NEUROLOGICAL: Higher mental function: The patient is drowsy but is awakeable to voice. Is oriented to self and stated he was in hospital but not time. Patient is following simple commands. Somewhat slow responding. No aphasia and no neglect. Cranial nerves: The pupils are round, equal and reactive to light. Visual flores are full to confrontation throughout. Extraocular movement is intact no nystagmus is noted. Facial sensation is normal to touch throughout. The facial strength is normal throughout. Hearing is severely decreased bilaterally to hand rub. Tongue is midline and moved [id number] without any difficulty. No dysarthria is noted. Shoulder shrug is normal bilaterally. Motor: The strength is 5 over 5 throughout. Normal tone and bulk. No resting tremor or cogwheel ridigity and normal tone at wrist and elbow flexion/extension. Some of the workup during his hospital visit consisted of: CBC with differential is unremarkable Glucose is 99 AST ALT, sodium, calcium magnesium are within normal limits Vitamin B12: 808 Folate level 36.10 TSH: 1.130 HbA1c: 6.0 Lipid panel is triglycerides 65, cholesterol 129, LDLs 81 and HDL is 34. CT of the head is reported as mild to moderate degenerative change with no evidence of acute hemorrhage or mass effect. Cardiac duplex is reported as less than 50% stenosis bilateral carotid bifurcation. MR the brain is reported as no acute intracranial process. Degenerative and remote ischemic white matter changes. I personally reviewed the MRI and I agree there is no acute or subacute ischemia. 2D echo: It is reported as preserved LV sizre and function with possible septal hypokinesis/spetal bounce - Labs CBC & Chem 7: 06/03/23 15:37 06/03/23 18:44 Labs: Abnormal Lab Results - Last 24 Hours (Table) 06/04/23 Range/Units 12:41 Folate 36.10 H (4.40-31.00) ng/mL Assessment and Plan Assessment: This is a 67-year-old gentleman who was at therapy on 06/03/2023 when he developed dysarthria and unsteady gait with dizziness and his symptoms resolved prior to arrival to the ED. Per the daughter patient has history of Parkinson's disease diagnosed by his neurologist but is not on any medication. It seems that he has tremor predominantly with holding things but per daughter has also some tremor at rest. Transient episode of dysarthria with unsteady gait and dizzy possible TIA. But then later today she notified that father has notified her that has difficulty with speech recently so possible due to underlying Parkinsonism disease. History of reported Parkinson's disease that was diagnosed by his neurologist according to the daughter but it does not seem that he is on any medication. No visible resting tremor. Unsure if he has atypical Parkinson's. Possible septal hypokinesis/spetal bounce on 2D echo Underlying history of dementia Diabetes mellitus Hypertension Sleep apnea Plan: I ordered ammonia level. Pending orthostatic levels. I ordered CT cervical spine since has unsteady gait and complained of neck pain. Patient was started on aspirin 325 daily. It seems patient was on aspirin 81 mg at home. In addition I start the patient on Plavix 75 mg daily for his concern of TIA. Showed the patient on Lipitor 10 mg daily at bedtime for signature prophylaxis Possible septal hypokinesis/spetal bounce on 2D echo. Recommend Cardiology consultation. orthostatic vitals. I ordered routine EEG because of confusion to rule out underlying seizure or discharges and clinically does not appear seizures. Continue neuro checks Cardiac monitoring Consulted PT OT and CLERICAL STOCK INSPECTOR The patient's has diagnosis of Parkinson's disease we'll defer that to management to his neurologist as an outpatient I did not see any evidence of resting tremor or any tremor with holding objects. Unsure if he has atypical Parkinsonism and if he was tried on medication as outpatient but could not tolerate it. Per daughter she did not accompany him to his appointments.I notified the daughter that he needs to follow-up with the neurologist as an outpatient for further management. Defer the rest of the medical management to primary team DVT prophylaxis On subcu heparin 5000 Hz every 12 hours The plan was discussed with his daughter who was at bedside Dr. Brooks will start neurology service tomorrow A.M. then Dr. Tadeo will resume this Thursday A.M. Time with Patient: Less than 30
[2023-06-05] MEDS ORDERED: DEXTROSE 50% SYRINGE 50 ML IVP PRN ×2 (17:08)
--- NOTE | 2023-06-05 17:11 | EEG ---
ELECTROENCEPHALOGRAM REPORT CLINICAL HISTORY: This is a 67-year-old gentleman with altered mental status. The video EEG is obtained to evaluate for seizure epileptiform activity. RELEVANT MEDICATION: The patient is not on any antiepileptic drugs. EEG TYPE: This is a routine 21-channel EEG with video using the 10/20 electrode placement system. DESCRIPTION: Wakefulness is only obtained. During awake state, the background consists of low-to- moderate voltage of 7 hertz activity. There is no physiological stage 2 sleep architecture. There is no focal slowing. Interictal and ictal are none. ACTIVATION PROCEDURE: Photic stimulation did not evoke a posterior driving response. There is no abnormality during the photic stimulation. Hyperventilation is not performed. CLINICAL INTERPRETATION: This is an abnormal routine EEG. The background slowing is suggestive of mild encephalopathy. Otherwise, there is no focal slowing, epileptiform discharge, or seizure on the EEG. Clinical correlation is recommended. MANNY / DAMIAN: [id number] / MTDD
--- NOTE | 2023-06-05 17:15 | P.HPIM ---
History of Present Illness H&P Date: 06/04/23 Chief Complaint: Start speech, dizziness This is a pleasant 67-year-old gentleman with past medical history significant for Parkinson's disease, gait dysfunction, dysarthria since jaw reconstruction- that progressed with Parkinson's disease over the last couple years, anxiety, diabetes mellitus, hypertension, sleep apnea-wears CPAP, constipation and multiple other medical issues brought into the ER via EMS from outpatient physical therapy. Apparently while at physical therapy, patient stated "he wasn't talking right nor were his legs working right", accompanied by mild increased confusion in a patient with underlying memory deficit. Denies fall. Denies syncope. Denies chest pain, palpitations or shortness of breath. Denies lightheadedness dizziness or focal deficits. Currently asymptomatic. Stroke evaluation initiated. Brain CT reported mild to moderate degenerative changes with no evidence of acute hemorrhage or mass effect. EKG over his sinus, bundle branch block, carotid Doppler reported no hemodynamic stenosis, brain MRI pending. Review of Systems ROS Statement: Those systems with pertinent positive or pertinent negative responses have been documented in the HPI. ROS Other: All systems not noted in ROS Statement are negative. Past Medical History Past Medical History: Diabetes Mellitus, Hypertension, Sleep Apnea/CPAP/BIPAP Additional Past Medical History / Comment(s): constipation, non healing left jaw. carpel tunnel. parkinsons History of Any Multi-Drug Resistant Organisms: None Reported Past Surgical History: Hernia Repair Additional Past Surgical History / Comment(s): benign tumor removed lt lower jaw and artifical jaw inserted. cataract- bilat, sinus surgery. carpel tunnel surgery right wrist . Past Anesthesia/Blood Transfusion Reactions: Motion Sickness Past Psychological History: Anxiety Smoking Status: Never smoker Past Alcohol Use History: None Reported Past Drug Use History: None Reported - Past Family History Father Family Medical History: Cancer, Diabetes Mellitus Mother Family Medical History: CVA/TIA Medications and Allergies Home Medications Medication Instructions Recorded Confirmed Type amLODIPine BESYLATE/BENAZEPRIL 1 cap PO HS 07/23/15 06/03/23 History [amLODIPine BESYLATE/BENAZEPRIL 5-20 mg] Aspirin EC [Ecotrin Low Dose] 81 mg PO DAILY 01/09/22 06/03/23 History Cholecalciferol [Vitamin D3 (25 25 mcg PO DAILY 01/09/22 06/03/23 History Mcg = 1000 Iu)] Donepezil [Aricept] 10 mg PO HS 01/09/22 06/03/23 History Escitalopram [Lexapro] 10 mg PO DAILY 01/09/22 06/03/23 History Meclizine HCl 25 mg PO DAILY 01/09/22 06/03/23 History Prevagen 1 cap PO DAILY 01/09/22 06/03/23 History Vit C/E/Zn/Coppr/Lutein/Zeaxan 1 cap PO DAILY 01/09/22 06/03/23 History [Preservision Areds 2 Softgel] Allergies Allergy/AdvReac Type Severity Reaction Status Date / Time cephalexin Allergy Itching Verified 06/03/23 16:36 cockroach Allergy Unknown Verified 06/03/23 16:36 cyclobenzaprine Allergy Chest Pain Verified 06/03/23 16:36 morphine AdvReac Hallucinati Verified 06/03/23 16:36 ons Physical Exam Vitals: Vital Signs Temp Pulse Resp BP Pulse Ox 06/04/23 18:43 76 18 127/90 97 06/04/23 18:00 98.6 F 70 16 123/83 96 06/04/23 13:56 65 16 124/76 95 06/04/23 13:10 58 L 18 133/81 97 06/04/23 10:29 58 L 14 135/76 95 06/04/23 09:33 98.8 F 62 16 133/83 97 06/04/23 07:56 98.1 F 59 L 14 136/86 97 06/04/23 04:54 61 16 137/78 97 06/04/23 01:00 59 L 18 116/73 94 L PHYSICAL EXAM: VITAL SIGNS: As above GENERAL: Pleasant 67-year-old gentleman sitting up in bed, conversing slowly, appropriately, NAD HEENT: Normocephalic, Conjunctivae normal. eyes normal. NECK: Supple, No JVD. No thyroid enlargement. No LNs CARDIOVASCULAR: S1, S2 regular.. No murmur RESPIRATION: Unlabored, equal air entry, Breath sounds diminished in the bases. No rhonchi or crackles. No bronchial breathing. ABDOMEN: Soft, nondistended, nontender . No guarding. no masses palpable. No ascites, No hepatosplenomegaly.Bowel sounds heard. LEGS: No edema. no swelling PSYCHIATRY: Alert and oriented X3, mood and affect normal. NERVOUS SYSTEM: Cranial N 2-12 grossly normal. Moves all 4 limbs. No focal deficits. Strength and sensation grossly intact.. 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 Neurology consulted. Neurology workup in progress. Echo and Brain MRI pending. DVT prophylaxis pending brain MRI results. Orthostatic vitals pending ST/ PT/OT consulted. PPI in place for GI prophylaxis. Patient follows with Dr. goyo Cerna for his Parkinson's disease. The impression and plan of care has been dictated as directed. : I performed a history and examination of this patient, discussed the same with the dictator. I agree with the dictator's note ,documented as a scribe. Any additional findings or plans will be noted.
--- NOTE | 2023-06-05 17:29 | P.PN ---
Subjective Progress Note Date: 06/05/23 H&P Date: 06/04/23 Chief Complaint: Start speech, dizziness This is a pleasant 67-year-old gentleman with past medical history significant for Parkinson's disease, gait dysfunction, dysarthria since jaw reconstruction- that progressed with Parkinson's disease over the last couple years, anxiety, diabetes mellitus, hypertension, sleep apnea-wears CPAP, constipation and multiple other medical issues brought into the ER via EMS from outpatient physical therapy. Apparently while at physical therapy, patient stated "he wasn't talking right nor were his legs working right", accompanied by mild increased confusion in a patient with underlying memory deficit. Denies fall. Denies syncope. Denies chest pain, palpitations or shortness of breath. Denies lightheadedness dizziness or focal deficits. Currently asymptomatic. Stroke evaluation initiated. Brain CT reported mild to moderate degenerative changes with no evidence of acute hemorrhage or mass effect. EKG over his sinus, bundle branch block, carotid Doppler reported no hemodynamic stenosis, brain MRI pending. Hematology unremarkable, INR 1.2. Electrolytes within normal limits. Bicarb 26, BUN 23, creatinine 1.12, glucose 99. Lipid panel pending. UA negative. 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 Received additional Ativan. This morning, sensorium significantly improved .Brain MRI reported no acute intracranial process, degenerative and remote ischemic white matter change. C-spine CT pending. Orthostatic vital signs pending. Echo reported preserved LV size and function, EF 50-55% with possible septal hypokinesis/septal bounce. Denies chest pain, palpitations or shortness of breath. Maintaining O2 sats in the 90s on room air. Objective - Vital Signs Vital signs: Vital Signs Temp 98 F 06/05/23 12:23 Pulse 68 06/05/23 15:59 Resp 17 06/05/23 15:59 BP 136/79 06/05/23 15:59 Pulse Ox 95 06/05/23 15:59 FiO2 Intake & Output 06/04/23 06/05/23 06/05/23 18:59 06:59 18:59 Intake Total 0 Output Total 140 150 Balance -140 -150 Weight 98.43 kg 98.43 kg Intake: Oral 0 Output: Urine 140 150 Other: Voiding Method Urinal Urinal - Exam PHYSICAL EXAM: VITAL SIGNS: As above GENERAL: Alert and oriented 2, pleasant, Lying in bed , droggy,conversing slowly, appropriately, NAD HEENT: Normocephalic, Conjunctivae normal. eyes normal. NECK: Supple, No JVD. CARDIOVASCULAR: S1, S2 regular. No murmur RESPIRATION: Unlabored, equal air entry, CTA. ABDOMEN: Soft, nondistended, nontender . No guarding. +BS. LEGS: No edema. no swelling NERVOUS SYSTEM: Cranial N 2-12 grossly normal. Moves all 4 limbs. No focal deficits. Strength and sensation grossly intact. 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 Orthostatic vital signs pending. Cervical spine CT pending. ST/PT/OT evaluations pending. Discharge planning in progress pending completion of neuro workup, final DC recommendations and clearance. The impression and plan of care has been dictated as directed. : I performed a history and examination of this patient, discussed the same with the dictator. I agree with the dictator's note ,documented as a scribe. Any additional findings or plans will be noted.
[2023-06-05] MEDS: INSULIN ASPART (NovoLOG) 100 UNIT/ML VIAL SQ SCH ×2 (17:47→20:07)
--- NOTE | 2023-06-05 18:44 | CT ---
EXAMINATION TYPE: CT cervical spine wo con CT DLP: 449 mGycm, Automated exposure control for dose reduction was used. DATE OF EXAM: 06/05/2023 4:27 PM COMPARISON: None. CLINICAL INDICATION:Male, 67 years old with history of unsteady gait, TECHNIQUE: Axial CT images from the skull base to the inferior aspect of T2 we obtained without intra venous contrast. Coronal and sagittal reformatted images were also reviewed. Contrast used: mL of , (if blank None) Oral contrast used: (if blank None) FINDINGS: Fracture: None. Osseous structures: Multilevel degenerative disc disease changes with endplate spurring and disc oste ophyte complex's. Vertebral alignment: Mild scoliosis changes of the spine which could be partially due to patient bein g. Spinal canal/Neural Foramina: Disc osteophyte complexes at ? C4-C7 with at least mild spinal canal stenosis. Facet joint uncovertebral joint arthropathy scattered throughout the cervical spine with v arying degrees of neural foraminal stenosis. Findings worse at C5-C6 bilaterally. With at least mild- to-moderate neural foraminal stenosis. Neck soft tissues: Prevertebral soft tissues are within normal limits. Other: The airway is patent. The lung apices are clear. Surgical changes with multiple surgical clips in the left neck. IMPRESSION: 1. No evidence of cervical spine fracture. 2. Mild to moderate multilevel degenerative disc disease.
[2023-06-05 19:56] LABS: Glucose,Whole Blood 111 mg/dL (70-110)
[2023-06-05] MEDS: ATORVASTATIN 10 MG TAB PO SCH (20:16)
[2023-06-05] MEDS: DONEPEZIL 10 MG TAB PO SCH (20:16)
[2023-06-05] MEDS: amLODIPine 5 MG TAB PO SCH (20:20)
[2023-06-05] MEDS: lisinopriL 20 MG TAB PO SCH (20:21)
[2023-06-06 06:05] LABS: Glucose,Whole Blood 102 mg/dL (70-110)
[2023-06-06] MEDS: INSULIN ASPART (NovoLOG) 100 UNIT/ML VIAL SQ SCH ×4 (06:06→20:03)
[2023-06-06] MEDS: ESCITALOPRAM 10 MG TAB PO SCH (09:23)
[2023-06-06] MEDS: PANTOPRAZOLE 40 MG/10 ML VIAL IVP SCH (09:23)
[2023-06-06] MEDS: CLOPIDOGREL 75 MG TAB PO SCH (09:23)
[2023-06-06] MEDS: ASPIRIN 81 MG PO SCH (09:23)
[2023-06-06] MEDS: HEPARIN SODIUM,PORCINE 5,000 UNIT/ML 1 ML VIAL SQ SCH ×2 (09:23→20:09)
[2023-06-06] MEDS: VIT A,C & E-LUTEIN-MINERALS 1 EACH TAB PO SCH (09:23)
[2023-06-06] MEDS: MECLIZINE 25 MG TAB PO SCH (09:23)
[2023-06-06] MEDS: CHOLECALCIFEROL 25 MCG (1000 IU) TABLET PO SCH (09:23)
[2023-06-06 11:27] LABS: Glucose,Whole Blood 103 mg/dL (70-110)
[2023-06-06] MEDS ORDERED: PROMETHAZINE 25 MG TAB PO PRN (11:48)
--- NOTE | 2023-06-06 11:50 | P.PN ---
Subjective Covering Dr. Mcnulty over weekend this is a pleasant 67 years old male with multiple medical problems as below. He admitted initially with dysarthria and fall on 06/03. His been evaluated by neurologist and he was taking aspirin 81 mg at home, Plavix was added for possible TIA, his dysarthria is improving but not completely resolved. MRI of the brain felt to show acute stroke. Patient will benefit from subacute rehab also neurologist recommended outpatient follow up with his neurologist for his Parkinson disease. EKG also was unremarkable, CT of the cervical spine ordered for anesthetic gait and shows degenerative disc disease but no fracture Ejection fraction is 50- 55% with septal hypokinesia. Carotid duplex showed a stenosis less than 50%. today patient was doing well, N bed comfortable, no new complaints, he has some nausea so he couldn't eat his breakfast, phenergan was added. Patient can be transferred out of the selective minutes to the general medical floor Objective - Vital Signs Vital signs: Vital Signs Temp 98.3 F 06/06/23 04:00 Pulse 74 06/06/23 09:51 Resp 18 06/06/23 09:51 BP 131/71 06/06/23 09:08 Pulse Ox 95 06/06/23 09:08 FiO2 Intake & Output 06/05/23 06/06/23 06/06/23 18:59 06:59 18:59 Intake Total 240 Output Total 150 Balance 90 Weight 98.43 kg Intake: Oral 240 Output: Urine 150 Other: Voiding Method Urinal Urinal Urinal # Voids 3 # Bowel Movements 0 - Exam -GENERAL: The patient is alert and oriented x3, not in any acute distress. Well developed, well nourished. Generally weak HEENT: Pupils are round and equally reacting to light. EOMI. No scleral icterus. No conjunctival pallor. Normocephalic, atraumatic. No pharyngeal erythema. No thyromegaly. CARDIOVASCULAR: S1 and S2 present. No murmurs, rubs, or gallops. PULMONARY: Chest is clear to auscultation, no wheezing , no crackles. ABDOMEN: Soft, nontender, nondistended, normoactive bowel sounds. No palpable organomegaly. MUSCULOSKELETAL: No joint swelling or deformity. EXTREMITIES: No cyanosis, clubbing, or pedal edema. -NEUROLOGICAL: Mild dysarthria, generalized weakness with no specific localization. Sensation is intact. Meningeal signs are absent SKIN: No rashes. no petechiae. - Labs CBC & Chem 7: 06/03/23 15:37 06/03/23 18:44 Labs: Abnormal Lab Results - Last 24 Hours (Table) 06/05/23 Range/Units 19:54 POC Glucose (mg/dL) 111 H (70-110) mg/dL Assessment and Plan Assessment: TIA with dysarthria improving Anesthetic gait with neck pain Atypical Parkinson disease High ammonia Altered mental status suspected for metabolic/toxic encephalopathy, improving History of dementia. Plan: Continue with aspirin and Plavix Neurology service on the case Patient denies any other specific complaints and he can be transferred out of the select unit Labs and medication were reviewed.. Continue same treatment. Continue with symptomatic treatment. Resume home medication. Monitor labs and vitals. DVT and GI prophylaxis. Further recommendations as per clinical course of the patient DVT prophylaxis: Subcutaneous heparin GI Prophylaxis: Ppi PT/OT:manny Prognosis is guarded
[2023-06-06 16:15] LABS: Glucose,Whole Blood 93 mg/dL (70-110)
[2023-06-06 19:36] LABS: Glucose,Whole Blood 90 mg/dL (70-110)
[2023-06-06] MEDS: DONEPEZIL 10 MG TAB PO SCH (20:09)
[2023-06-06] MEDS: ATORVASTATIN 10 MG TAB PO SCH (20:09)
[2023-06-06] MEDS: amLODIPine 5 MG TAB PO SCH (20:11)
[2023-06-06] MEDS: lisinopriL 20 MG TAB PO SCH (20:11)
[2023-06-07] MEDS: INSULIN ASPART (NovoLOG) 100 UNIT/ML VIAL SQ SCH ×4 (06:39→21:26)
[2023-06-07] MEDS: VIT A,C & E-LUTEIN-MINERALS 1 EACH TAB PO SCH (10:03)
[2023-06-07] MEDS: CHOLECALCIFEROL 25 MCG (1000 IU) TABLET PO SCH (10:04)
[2023-06-07] MEDS: HEPARIN SODIUM,PORCINE 5,000 UNIT/ML 1 ML VIAL SQ SCH ×2 (10:04→21:26)
[2023-06-07] MEDS: ESCITALOPRAM 10 MG TAB PO SCH (10:04)
[2023-06-07] MEDS: ASPIRIN 81 MG PO SCH (10:04)
[2023-06-07] MEDS: MECLIZINE 25 MG TAB PO SCH (10:04)
[2023-06-07] MEDS: PANTOPRAZOLE 40 MG/10 ML VIAL IVP SCH (10:04)
[2023-06-07] MEDS: CLOPIDOGREL 75 MG TAB PO SCH (10:04)
--- NOTE | 2023-06-07 10:05 | P.PN ---
Subjective Covering Dr. Mcnulty over weekend this is a pleasant 67 years old male with multiple medical problems as below. He admitted initially with dysarthria and fall on 06/03. His been evaluated by neurologist and he was taking aspirin 81 mg at home, Plavix was added for possible TIA, his dysarthria is improving but not completely resolved. MRI of the brain felt to show acute stroke. Patient will benefit from subacute rehab also neurologist recommended outpatient follow up with his neurologist for his Parkinson disease. EKG also was unremarkable, CT of the cervical spine ordered for anesthetic gait and shows degenerative disc disease but no fracture Ejection fraction is 50- 55% with septal hypokinesia. Carotid duplex showed a stenosis less than 50%. today patient was doing well, N bed comfortable, no new complaints, he has some nausea so he couldn't eat his breakfast, phenergan was added. Patient can be transferred out of the selective minutes to the general medical floor 06/07/2023 patient is lying in bed comfortable. His only complaining about his food been called and needs his doctor to be change. No physical complaints. He has no problem being no dysuria or urgency His dysarthria is improving. This continued on aspirin 81 mg and Plavix Patient will benefit from ECF for subacute rehab Objective - Vital Signs Vital signs: Vital Signs Temp 98.4 F 06/07/23 02:00 Pulse 82 06/07/23 09:59 Resp 18 06/07/23 09:59 BP 127/77 06/07/23 09:59 Pulse Ox 94 L 06/07/23 09:59 FiO2 Intake & Output 06/06/23 06/07/23 06/07/23 18:59 06:59 18:59 Intake Total 0 0 360 Output Total 0 Balance 0 0 360 Intake: Oral 0 0 360 Output: Gastric Drainage 0 Urine 0 Stool 0 Urine/Stool Mix 0 Emesis 0 Other 0 Other: Voiding Method Urinal Urinal # Voids 0 # Bowel Movements 0 - Exam -GENERAL: The patient is alert and oriented x3, not in any acute distress. Well developed, well nourished. Generally weak HEENT: Pupils are round and equally reacting to light. EOMI. No scleral icterus. No conjunctival pallor. Normocephalic, atraumatic. No pharyngeal erythema. No thyromegaly. CARDIOVASCULAR: S1 and S2 present. No murmurs, rubs, or gallops. PULMONARY: Chest is clear to auscultation, no wheezing , no crackles. ABDOMEN: Soft, nontender, nondistended, normoactive bowel sounds. No palpable organomegaly. MUSCULOSKELETAL: No joint swelling or deformity. EXTREMITIES: No cyanosis, clubbing, or pedal edema. -NEUROLOGICAL: Mild dysarthria, generalized weakness with no specific localization. Sensation is intact. Meningeal signs are absent SKIN: No rashes. no petechiae. - Labs CBC & Chem 7: 06/03/23 15:37 06/03/23 18:44 Assessment and Plan Assessment: TIA with dysarthria improving Anesthetic gait with neck pain Atypical Parkinson disease High ammonia Altered mental status suspected for metabolic/toxic encephalopathy, improving History of dementia. Plan: Continue with aspirin and Plavix Neurology service on the case Patient denies any other specific complaints and he can be transferred out of the select unit Labs and medication were reviewed.. Continue same treatment. Continue with symptomatic treatment. Resume home medication. Monitor labs and vitals. DVT and GI prophylaxis. Further recommendations as per clinical course of the patient DVT prophylaxis: Subcutaneous heparin GI Prophylaxis: Ppi PT/OT:manny Prognosis is guarded
[2023-06-07 11:42] LABS: Glucose,Whole Blood 106 mg/dL (70-110)
--- NOTE | 2023-06-07 14:49 | P.PN ---
Subjective Progress Note Date: 06/07/23 The pt is a 67 y/o male who is seen in neurologic follow on 2022, in collaboration with Kenyetta Canales, via teleneurology. The pt's chart has been reviewed. Brain and C-spine imaging have been personally reviewed. The pt reportedly came into the hospital with signs of possible TIA. He report edly had slurred speech and ataxia. These symptoms occurred during physical therapy. The pt reports episodes of feeling lightheaded and losing his balance. He apparently seems to fall backwards. According the daughter at the bedside and the pt, he does have a stooped, shuffling gait, with lack of arm swing. The pt reportedly sees a neurologist for Parkinson's disease. He has not been started on any medications at this time. The pt denies freezing episodes. He does report stiffness in his legs. His handwriting has changed. Objective - Vital Signs Vital signs: Vital Signs Temp 98.4 F 06/07/23 02:00 Pulse 82 06/07/23 11:11 Resp 18 06/07/23 11:11 BP 127/77 06/07/23 09:59 Pulse Ox 94 L 06/07/23 09:59 FiO2 Intake & Output 06/06/23 06/07/23 06/07/23 18:59 06:59 18:59 Intake Total 0 0 780 Output Total 0 Balance 0 0 780 Intake: Oral 0 0 780 Output: Gastric Drainage 0 Urine 0 Stool 0 Urine/Stool Mix 0 Emesis 0 Other 0 Other: Voiding Method Urinal Urinal Urinal # Voids 0 # Bowel Movements 0 - Exam General: The pt is seated in the bed. He is in no distress. HEENT: Atraumatic, normocephalic. No scleral icterus. Fundus not visualized. Mucous membranes moist Neurological examination Mental status: the pt is awake, alert and oriented x3. His speech is hypophon ic. He has a mask like face with decreased blink rate. Handwriting is micrographic. Cranial nerves: 2-12 grossly intact. Extraocular movements intact. Coordination: Finger to nose intact. Rapid alternating movements intact. No bradykinesia. No tremor Gait: No assessed - Labs CBC & Chem 7: 06/03/23 15:37 06/03/23 18:44 Assessment and Plan Assessment: 1. Parkinsonism with mask-like face, decreased blink rate, hypophonia, micrographia and reported shuffling gait with lack of arm swing- currently not on meds per treating neurologist 2. Transient episode of dysarthria with unsteady gait and dizzy probable TIA. 3. Underlying history of dementia 4. Diabetes mellitus 5. Hypertension 6. Sleep apnea Plan: 1. TIA work up is complete. Continue ASA and Plavix for CVA/TIA prevention 2. Ct scan of cervical spine is negative for etiology of ataxia. This is likely secondary to Parkinson's disease 3. Pt and daughter were advised to follow up with own neurologist and discuss starting medication to treat Parkinson's disease 4. The pt is neurologically stable to discharge Time with Patient: Less than 30 (spent 25 minutes caring for this pt, including reviewing imaging, labs, chart documentation and creating this note)
[2023-06-07 16:41] LABS: Glucose,Whole Blood 142 mg/dL (70-110)
[2023-06-07 20:03] LABS: Glucose,Whole Blood 134 mg/dL (70-110)
[2023-06-07] MEDS: ATORVASTATIN 10 MG TAB PO SCH (21:25)
[2023-06-07] MEDS: DONEPEZIL 10 MG TAB PO SCH (21:25)
[2023-06-07] MEDS: amLODIPine 5 MG TAB PO SCH (21:26)
[2023-06-07] MEDS: lisinopriL 20 MG TAB PO SCH (21:26)
[2023-06-08 06:09] LABS: Glucose,Whole Blood 114 mg/dL (70-110)
[2023-06-08] MEDS: INSULIN ASPART (NovoLOG) 100 UNIT/ML VIAL SQ SCH ×3 (06:16→17:18)
[2023-06-08 08:46] LABS: HCT 42.8 % (39.0-53.0); HGB 14.2 gm/dL (13.0-17.5); MCH 28.7 pg (25.0-35.0); MCHC 33.1 g/dL (31.0-37.0); MCV 86.6 fL (80.0-100.0); Mean Platelet Volume 7.1; Platelet Count 219 k/uL (150-450); RBC 4.94 m/uL (4.30-5.90); RDW 13.1 % (11.5-15.5); WBC 7.8 k/uL (3.8-10.6)
[2023-06-08 09:11] LABS: ALT 20 U/L (4-49); AST 26 U/L (17-59); African American GFR (CKD) 65 (>60 ml/min/1.73 sqM); Albumin 3.6 g/dL (3.5-5.0); Alkaline Phosphatase 71 U/L (38-126); Anion Gap 9 mmol/L; Blood Urea Nitrogen 25 mg/dL (9-20); Calcium 8.7 mg/dL (8.4-10.2); Carbon Dioxide 26 mmol/L (22-30); Chloride 105 mmol/L (98-107); Glucose 114 mg/dL (74-99); Non-African American GFR(CKD) 56 (>60 ml/min/1.73 sqM); Potassium 3.8 mmol/L (3.5-5.1); Sodium 140 mmol/L (137-145); Total Bilirubin 0.8 mg/dL (0.2-1.3); Total Protein 6.6 g/dL (6.3-8.2)
[2023-06-08] MEDS: ASPIRIN 81 MG PO SCH (10:36)
[2023-06-08] MEDS: HEPARIN SODIUM,PORCINE 5,000 UNIT/ML 1 ML VIAL SQ SCH (10:36)
[2023-06-08] MEDS: PANTOPRAZOLE 40 MG/10 ML VIAL IVP SCH (10:36)
[2023-06-08] MEDS: CHOLECALCIFEROL 25 MCG (1000 IU) TABLET PO SCH (10:37)
[2023-06-08] MEDS: CLOPIDOGREL 75 MG TAB PO SCH (10:37)
[2023-06-08] MEDS: VIT A,C & E-LUTEIN-MINERALS 1 EACH TAB PO SCH (10:37)
[2023-06-08] MEDS: ESCITALOPRAM 10 MG TAB PO SCH (10:37)
[2023-06-08] MEDS: MECLIZINE 25 MG TAB PO SCH (10:37)
[2023-06-08 11:08] LABS: Glucose,Whole Blood 131 mg/dL (70-110)
[2023-06-08 11:24] VITALS: RESP 18
[2023-06-08 15:04] VITALS: BP 119/69; PULSE 80; TEMP 98.3
--- NOTE | 2023-06-08 15:39 | P.DS ---
Providers Date of admission: 06/03/23 19:41 Expected date of discharge: 06/08/23 Attending physician: Priyank Mcnulty Consults: 06/03/23 19:42 Consult Physician Routine Consulting Provider: Lenin Byers Consult Reason/Comments: TIA Do you want consulting provider notified?: Yes Primary care physician: Priyank Mcnulty - Discharge Diagnosis(es) (1) Transient cerebral ischemia Current Visit: Yes Status: Acute (2) Parkinson's disease (tremor, stiffness, slow motion, unstable posture) Current Visit: Yes Status: Acute (3) Generalized muscle weakness Current Visit: Yes Status: Acute (4) Hypertension Current Visit: Yes Status: Acute Hospital Course: Patient is a pleasant 67-year-old white male who developed some speech disturbances and some weakness and was subsequently admitted his symptoms resolved and was had a full neurological workup which failed to demonstrate acute ischemic attack however he was treated for TIA is placed on Plavix plus aspirin and he was clear for discharge he was having some problems with mobility because of prolonged hospital stay and was ambulating with some difficulty as felt by physical therapy the patient should benefit from subacute rehab in order to gain his gait functioning. Complicated by his progressive Parkinson's disease. He did have a period of metabolic encephalopathy during his stay because of medication induced that we gave him for his MRI and for agitation or now today and is not having any problems with his memory will continue to monitor the situation and recommend that he gets improvement from the rehabilitation facility 2 weeks after he'll return to my office Patient Condition at Discharge: Stable Plan - Discharge Summary Discharge Rx Participant: Yes New Discharge Prescriptions: New Atorvastatin [Lipitor] 10 mg PO HS tab Clopidogrel [Plavix] 75 mg PO DAILY tab lisinopriL [Zestril] 20 mg PO HS tab Continue amLODIPine BESYLATE/BENAZEPRIL [amLODIPine BESYLATE/BENAZEPRIL 5-20 MG] 1 cap PO HS Aspirin EC [Ecotrin Low Dose] 81 mg PO DAILY Vit C/E/Zn/Coppr/Lutein/Zeaxan [Preservision Areds 2 Softgel] 1 cap PO DAILY Meclizine HCl 25 mg PO DAILY Escitalopram [Lexapro] 10 mg PO DAILY Donepezil [Aricept] 10 mg PO HS Cholecalciferol [Vitamin D3 (25 Mcg = 1000 Iu)] 25 mcg PO DAILY Discontinued Prevagen 1 cap PO DAILY Discharge Medication List amLODIPine BESYLATE/BENAZEPRIL [amLODIPine BESYLATE/BENAZEPRIL 5-20 MG] 1 cap PO HS 07/23/15 [History] Aspirin EC [Ecotrin Low Dose] 81 mg PO DAILY 01/09/22 [History] Cholecalciferol [Vitamin D3 (25 Mcg = 1000 Iu)] 25 mcg PO DAILY 01/09/22 [History] Donepezil [Aricept] 10 mg PO HS 01/09/22 [History] Escitalopram [Lexapro] 10 mg PO DAILY 01/09/22 [History] Meclizine HCl 25 mg PO DAILY 01/09/22 [History] Vit C/E/Zn/Coppr/Lutein/Zeaxan [Preservision Areds 2 Softgel] 1 cap PO DAILY 01/09/22 [History] Atorvastatin [Lipitor] 10 mg PO HS tab 06/08/23 [Rx] Clopidogrel [Plavix] 75 mg PO DAILY tab 06/08/23 [Rx] lisinopriL [Zestril] 20 mg PO HS tab 06/08/23 [Rx] Follow up Appointment(s)/Referral(s): Basilia Cerna MD [REFERRING] - 1 Week Priyank Mcnulty DO [Primary Care Provider] - 1 Week Discharge Disposition: TRANSFER TO SNF/ECF
[2023-06-08 16:09] LABS: Glucose,Whole Blood 156 mg/dL (70-110)
[2023-06-08] MEDS ORDERED: ACETAMINOPHEN TAB 325 MG TAB PO STA (17:40)
== END 2023-06-08 19:28 | DRG 56 ==
LOC: EC 14:31 → 3SCARD 19:41
PROVIDERS: ADMIT Family Medicine; ATTEND Family Medicine
DX: G20.A1 Parkinson's disease without dyskinesia, without mention of fluctuations (principal); G93.41 Metabolic encephalopathy; G47.33 Obstructive sleep apnea (adult) (pediatric); I10 Essential (primary) hypertension; I45.10 Unspecified right bundle-branch block; W19.XXXA Unspecified fall, initial encounter; Z79.82 Long term (current) use of aspirin; Z79.899 Other long term (current) drug therapy; Z83.3 Family history of diabetes mellitus; Z86.73 Personal history of transient ischemic attack (TIA), and cerebral infarction without residual deficits; Z88.5 Allergy status to narcotic agent; Z88.1 Allergy status to other antibiotic agents; Z88.8 Allergy status to other drugs, medicaments and biological substances
CPT/HCPCS: 36415; 70450; 70551; 72125; 80053; 80061; 81003; 82140; 82607; 82746; 83036; 83735; 84443; 85025; 85027; 85610; 85730; 93005; 93306; 93880; 95816; 96374; 99285

== ENCOUNTER → 2023-09-17 | Outpatient (CLI) | payer MEDICARE, BC ==
--- NOTE | 2023-09-17 12:47 | P.PN ---
Subjective DATE: 09/17/2023 FOLLOW UP VISIT. Patient with obstructive sleep apnea hypopnea syndrome return to sleep center for follow-up visit. Information from previous visit have been reviewed. Patient is using BPAP equipment. The patient sometimes has gurgling sound in nasal pillow mask. Goodridge sleepiness scale is 8. I checked information from BPAP unit. BPAP unit pressure is maximal inspiratory pressure 20, minimal expiratory pressure 8, average pressure 14.8 over 10.8 cm H2O. Leak is 41 l/m, which is significantly increased, possibly patient opens his mouth during the sleep. Apnea Hypopnea Index is increased to 9.2, but better than during diagnostic sleep study when it was 44.2. MEDICATIONS:1. Carbidopa 2. Donepezil 3. Meclizine 25 mg once a day 4. Amlodipine/benazepril 5-20 mg once a day 5. Lexapro 20 mg once a day 6. Clopidogrel 75 mg once a day During physical exam: GENERAL: A pleasant patient without any distress. VITAL SIGNS: BP 124/77, HR 61, RR 12, weight 211.8, temperature 97.8, oxygen saturation at room air 99 % . HEENT: PERRLA, EOMI.low position of soft palate, Mallapati 4 . NECK: Supple. No JVD. LUNGS: Clear to percussion and to auscultation. Good air exchange. No wheezing or rhonchi. HEART: S1, S2 regular. ABDOMEN: Soft and nontender. 4 EXTREMITIES: No clubbing or cyanosis. RN ADMIT: Awake, alert, and oriented x3. No focal deficit. Impressions: 1. Obstructive sleep apnea-hypopnea syndrome. Significant leak, possibly secondary to opening mouth. 2. History of episodes of vertigo. 3. History of Parkinson's disease. 4. History of depression. 5. Mild obesity, BMI 30.4 I explained to the patient and family how to adjust humidity and temperature in the tube. Plan: 1. Continue using PAP equipment every night for the whole night. 2. To change air filter at least 1-2 times per month. 3. PAP unit should stay lower then position of the head. 4. Advised patient to remove all remaining water from humidifier canister daily and make it dry after each usage. Refill canister with fresh distilled water before each usage. 5. Sleep hygiene with regular time in bed for at least 8 hours. 6. Precautions related to driving. No driving if feel any sleepiness. 7. I will maintain prescription for PAP supplies including mask, tube, filters. 8. Watching weight. 9. Follow up visit in 6 months or earlier if patient has any problems. Thank you very much for allowing me to participate in the management of your patient. David Sanabria MD, PhD, FAASM. Diplomat of [place] [employer], Sleep Medicine Board by [employer] [facility] [employer] [facility] [place]
== END ==
LOC: 3 N SLEEP 10:44
PROVIDERS: ATTEND Internal Medicine
DX: G47.33 Obstructive sleep apnea (adult) (pediatric) (principal); E66.9 Obesity, unspecified; F32.A Depression, unspecified; G20.A1 Parkinson's disease without dyskinesia, without mention of fluctuations; Z68.30 Body mass index [BMI] 30.0-30.9, adult; Z86.69 Personal history of other diseases of the nervous system and sense organs; Z99.89 Dependence on other enabling machines and devices; Z88.1 Allergy status to other antibiotic agents; Z91.038 Other insect allergy status; Z88.5 Allergy status to narcotic agent; Z88.8 Allergy status to other drugs, medicaments and biological substances; Z79.82 Long term (current) use of aspirin
CPT/HCPCS: 99212

== ENCOUNTER 2023-10-02 07:22 | Day surgery (SDC) | payer MEDICARE, BC ==
[2023-09-29 10:06] VITALS: BMI 31.9
[~2023-10-02 07:22] MED LIST: ALPRAZolam 0.25 MG TAB PO PRN; ALPRAZolam 0.5 MG TAB PO PRN; ASPIRIN 325 MG TAB PO STA; NITROGLYCERIN SL TABS 0.4 MG TAB SUBLINGUAL PRN; SODIUM CHLORIDE 0.9% 1,000 ML in EMPTY BAG 1 BAG IV SCH
[2023-10-02] MEDS: SODIUM CHLORIDE 0.9% 1,000 ML IV ONE (07:53)
[2023-10-02 08:03] LABS: Basophils % (A) 1 %; Eosinophils # (A) 0.1 k/uL (0-0.7); Eosinophils % (A) 1 %; HCT 44.6 % (39.0-53.0); HGB 14.7 gm/dL (13.0-17.5); Lymphocytes # (A) 1.2 k/uL (1.0-4.8); Lymphocytes % (A) 15 %; MCH 28.8 pg (25.0-35.0); MCHC 32.9 g/dL (31.0-37.0); MCV 87.5 fL (80.0-100.0); Mean Platelet Volume 7.2; Monocytes # (A) 0.5 k/uL (0-1.0); Monocytes % (A) 6 %; Neutrophils # (A) 6.2 k/uL (1.3-7.7); Neutrophils % (A) 76 %; Platelet Count 205 k/uL (150-450); RDW 12.7 % (11.5-15.5); WBC 8.2 k/uL (3.8-10.6)
[2023-10-02 08:08] LABS: African American GFR (CKD) 57 (>60 ml/min/1.73 sqM); Anion Gap 6 mmol/L; Blood Urea Nitrogen 32 mg/dL (9-20); Calcium 8.9 mg/dL (8.4-10.2); Carbon Dioxide 27 mmol/L (22-30); Chloride 105 mmol/L (98-107); Glucose 113 mg/dL (74-99); Non-African American GFR(CKD) 50 (>60 ml/min/1.73 sqM); Potassium 4.4 mmol/L (3.5-5.1); Sodium 138 mmol/L (137-145)
[2023-10-02] MEDS ORDERED: LIDOCAINE 1% INJ 10MG/ML (20 ML MDV) ONE (08:22)
[2023-10-02] MEDS ORDERED: VERAPAMIL 2.5 MG/ML 2 ML AMP ONE (08:22)
[2023-10-02 08:29] VITALS: RESP 16; TEMP 98.7
[2023-10-02] MEDS ORDERED: fentaNYL (PF) 50 MCG/ML 2 ML AMP ONE (09:15)
[2023-10-02] MEDS: fentaNYL (PF) 50 MCG/1 ML VIAL IVP ONE (09:22)
[2023-10-02] MEDS: LIDOCAINE 2% (PF) 20 MG/ML 5 ML VIAL SQ ONE (09:26)
[2023-10-02] MEDS: VERAPAMIL SYRINGE (5 MG/10 ML) INTRAARTER ONE (09:29)
[2023-10-02] MEDS: HEPARIN SODIUM 1,000 UN/ML (10ML VL) IV ONE (09:30)
[2023-10-02] MEDS: IOPAMIDOL-370 100ML BTL INJ ONE (09:35)
[2023-10-02] MEDS ORDERED: RX INFO: IV CONTRAST WAS GIVEN 1 EACH MISC MISCELLANE PRN (09:46)
--- NOTE | 2023-10-02 09:51 | P.CARDCATH ---
Date of Procedure: 10/02/23 Description of Procedure: Cardiac Catheterization: The patient is a 68-year-old male with a history of hypertension who has been complaining of dyspnea and fatigue and had an abnormal MPI. Recommendations were made regarding cardiac catheterization, the risks and the complications were discussed with the patient who is in full understanding and agreement. 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 Using Xylocaine Anesthesia and modified Seldinger technique, a 6-Maldivian sheath was introduced in the right radial artery . Subsequently, selective coronary angiography was performed using a 5-Maldivian 3.5 bend Russel catheter. Multiple views of the coronary artery including hemiaxial views were obtained. The left Russel catheter was used to cross the aortic valve and LVEDP was calculated. Following that, catheter and sheath were removed. Hemostasis was obtained with deployment of vascular band . There was no immediate complication. Patient was returned to room in stable condition. Of note, the patient received a total of 5000 units of intravenous heparin as well as intra-arterial verapamil. Findings: Left main: This is a large size vessel, bifurcating into LAD and left circumflex, left main has no obstructive disease LAD: This is a large size vessel reaching to the apex with a wraparound apex segment, giving rise to a large diagonal branch proximally. The LAD and its branches have no obstructive disease Left circumflex: This is a nondominant vessel, giving rise to a large obtuse marginal branch, the left circumflex and its branches have no obstructive dise ase RCA: This is a large dominant vessel, bifurcating into PDA and PLV the right coronary artery and its branches have no obstructive disease Left Ventriculogram: Not performed Hemodynamics: There was no gradient across aortic valve, LVEDP was 15-20 mmHg Conclusion: 1. Normal coronary arteries 2. Right dominance Recommendations: I see no evidence of obstructive disease to explain his symptoms. The stress test most likely represent a false positive. The findings and the recommendations were discussed with the patient and the family and they were in full understanding and agreement. Duration of sedation is 13 minutes.
[2023-10-02] MEDS ORDERED: SODIUM CHLORIDE 0.9% 1,000 ML IV SCH (10:00)
[2023-10-02 14:37] VITALS: BP 112/62; PULSE 68
[2023-10-02] MEDS ORDERED: CARBIDOPA-LEVODOPA 25-100 MG 1 EACH TAB PO SCH (21:00)
[2023-10-03] MEDS ORDERED: CLOPIDOGREL 75 MG TAB PO SCH (09:00)
[2023-10-03] MEDS ORDERED: NON FORMULARY DRUG (Amlodipine Besylate/Benazepril [Lotrel 5-20 Mg Capsule] 1 EACH Capsule PO SCH (09:00)
== END 2023-10-02 14:06 | disposition home or self-care (01) ==
LOC: CATHCVL 07:22
PROVIDERS: ATTEND Internal Medicine Interventional Cardiology
DX: R93.1 Abnormal findings on diagnostic imaging of heart and coronary circulation (principal); I10 Essential (primary) hypertension; E11.9 Type 2 diabetes mellitus without complications; G20.A1 Parkinson's disease without dyskinesia, without mention of fluctuations; Z79.02 Long term (current) use of antithrombotics/antiplatelets; Z79.899 Other long term (current) drug therapy; Z88.5 Allergy status to narcotic agent; Z87.891 Personal history of nicotine dependence; Z86.73 Personal history of transient ischemic attack (TIA), and cerebral infarction without residual deficits
CPT/HCPCS: 93458; 80048; 85025; C1769; C1894; J1644; Q9967; J2001; J3010

== ENCOUNTER 2023-10-11 13:54 | Emergency (ER) | payer MEDICARE, BC ==
--- NOTE | 2023-10-11 14:35 | ED ---
Nausea/Vomiting/Diarrhea HPI - General Chief complaint: Nausea/Vomiting/Diarrhea Stated complaint: parkinsons Time Seen by Provider: 10/11/23 14:06 Source: patient, family, RN notes reviewed Mode of arrival: wheelchair Limitations: no limitations - History of Present Illness Initial comments: This is a 68-year-old male who presents to the emergency department for nausea. Patient's sister is at bedside, and states that he has a history of Parkinson's and dementia. However, today he has started to seem more confused than normal and also looks pale. They went out to eat after restorationism, and he started to become nauseous and felt generally unwell. Patient reports diarrhea and generalized abdominal discomfort. Denies any coughing, congestion, chest pain, shortness of breath, or sick contacts. He does report some chills. MD complaint: nausea, abdominal pain - Related Data Home Medications Medication Instructions Recorded Confirmed Aspirin EC [Ecotrin Low Dose] 81 mg PO DAILY 01/09/22 10/02/23 Cholecalciferol [Vitamin D3 (25 25 mcg PO DAILY 01/09/22 10/02/23 Mcg = 1000 Iu)] Meclizine HCl 25 mg PO TID PRN 01/09/22 09/29/23 Vit C/E/Zn/Coppr/Lutein/Zeaxan 1 cap PO DAILY 01/09/22 10/02/23 [Preservision Areds 2 Softgel] Carbidopa-Levodopa 25-100 mg 1 each PO BID 09/29/23 10/02/23 [Sinemet 25-100] amLODIPine BESYLATE/BENAZEPRIL 1 each PO DAILY 09/29/23 10/02/23 [Lotrel 5-20 mg Capsule] Previous Rx's Medication Instructions Recorded Clopidogrel [Plavix] 75 mg PO DAILY tab 06/08/23 Ondansetron Odt [Zofran Odt] 4 mg PO Q8HR PRN #20 tab 10/11/23 Allergies Allergy/AdvReac Type Severity Reaction Status Date / Time cephalexin Allergy Itching Verified 10/11/23 14:02 cockroach Allergy Unknown Verified 10/11/23 14:02 cyclobenzaprine Allergy Chest Pain Verified 10/11/23 14:02 morphine AdvReac Hallucinati Verified 10/11/23 14:02 ons Review of Systems ROS Statement: Those systems with pertinent positive or pertinent negative responses have been documented in the HPI. ROS Other: All systems not noted in ROS Statement are negative. Past Medical History Past Medical History: CVA/TIA, Diabetes Mellitus, Hypertension, Sleep Apnea/CPAP/BIPAP Additional Past Medical History / Comment(s): Parkinsons. diet controlled DM History of Any Multi-Drug Resistant Organisms: None Reported Past Surgical History: Hernia Repair Additional Past Surgical History / Comment(s): benign tumor removed lt lower jaw and artifical jaw inserted, cataract- bilat, sinus surgery, carpal tunnel surgery right wrist 1969' Past Anesthesia/Blood Transfusion Reactions: Motion Sickness Past Psychological History: Anxiety Smoking Status: Never smoker Past Alcohol Use History: None Reported Past Drug Use History: None Reported - Past Family History Father Family Medical History: Cancer, Diabetes Mellitus Mother Family Medical History: CVA/TIA General Exam Limitations: no limitations General appearance: alert, in no apparent distress Head exam: Present: atraumatic, normocephalic, normal inspection Respiratory exam: Present: normal lung sounds bilaterally. Absent: respiratory distress, wheezes, rales, rhonchi, stridor Cardiovascular Exam: Present: regular rate, normal rhythm, normal heart sounds. Absent: systolic murmur, diastolic murmur, rubs, gallop, clicks GI/Abdominal exam: Present: soft, tenderness (diffuse), normal bowel sounds. Absent: distended, guarding, rebound, rigid Neurological exam: Present: alert, oriented X3, CN II-XII intact Psychiatric exam: Present: normal affect, normal mood Skin exam: Present: warm, dry, intact, normal color. Absent: rash Course Vital Signs 10/11/23 10/11/23 14:00 17:40 Temperature 99.3 F 99.1 F Pulse Rate 113 H 97 Respiratory 26 H 22 Rate Blood Pressure 161/77 143/74 O2 Sat by Pulse 98 97 Oximetry Medical Decision Making - Medical Decision Making This is a 68-year-old male who presents to the emergency department for nausea. Was pt. sent in by a medical professional or institution? @ -No Did you speak to anyone other than the patient for history? @ -His sister provided the information about looking pale and seeming confused. Did you review nursing and triage notes? @ -Yes, and I agree, it is accurate with regards to the patient's symptoms. Were old charts reviewed? @ -No Differential Diagnosis? @ -Differential Nausea and Vomiting: Gastroenteritis, cholecystitis, appendicitis, pancreatitis, migraine, benign positional vertigo, food borne illness, pyelonephritis, irritable bowel syndrome, influenza, Covid, GERD, incarcerated hernia, intestinal obstruction, this is not meant to be an all-inclusive list. EKG interpreted by me (3pts min.)? @ -EKG interpreted by me demonstrating the following: Sinus tachycardia. Ventricular rate 101 bpm, HI interval 159 ms, QRS duration 113 ms, QTC 420 ms. X-rays interpreted by me (1pt min.)? @ -Chest x-ray obtained, my interpretation identifies no localized consolidations or infiltrates. CT interpreted by me (1pt min.)? @ -Not obtained U/S interpreted by me (1pt. min.)? @ -Not obtained What testing was considered but not performed? (CT, X-rays, U/S, labs)? Why? @ -None What meds were considered but not given? Why? @ -None Did you discuss the management of the patient with other professionals? @ -No Did you reconcile home meds? @ -No Was smoking cessation discussed for >3mins.? @ -No Was critical care preformed (if so, how long)? @ -No Were there social determinants of health that impacted care today? How? (Homelessness, low income, unemployed, alcoholism, drug addiction, tr ansportation, low edu. Level, literacy, decrease access to med. care, half-way, rehab)? @ -No Was there de-escalation of care discussed even if they declined? (Discuss DNR or withdrawal of care, Hospice)? @ -No What co-morbidities impacted this encounter? (DM, HTN, Smoking, COPD, CAD, Cancer, CVA, Hep., AIDS, mental health diagnosis, sleep apnea, morbid obesity)? @ -Parkinson's, dementia, DM, HTN Was patient admitted / discharged? @ -Discharged. Lab work obtained and found to be unremarkable. Urinalysis negative for signs of infection. Covid, influenza, and RSV testing were negative. Chest x-ray reveals no acute process. Patient was febrile in the emergency department, and ended up being treated with both Tylenol and ibuprofen. He was also given IV fluids and Zofran with improvement in symptoms. He was also at his baseline mentation in the emergency department. Discussed that given the associated fevers this is likely a viral process. It is possible that he may test positive for Covid or influenza later on, and it is just too early given that symptoms started today. He was tolerating oral intake, and at that point requested discharge home. Prescription for Zofran provided with dosing instructions reviewed. Advised ibuprofen and Tylenol as needed for any additional fevers, slowly advancing his diet as tolerated, and follow up with his primary care provider. Undiagnosed new problem with uncertain prognosis? @ -None Drug Therapy requiring intensive monitoring for toxicity (Heparin, Nitro, Insulin, Cardizem)? @ -None Were any procedures done? @ -None Diagnosis/symptom? @ -Nausea, fever Acute, or Chronic, or Acute on Chronic? @ -Acute Uncomplicated (without systemic symptoms) or Complicated (systemic symptoms)? @ -Uncomplicated Side effects of treatment? @ -None Exacerbation, Progression, or Severe Exacerbation] @ -Not applicable Poses a threat to life or bodily function? @ -No Return precautions reviewed in depth, the patient is instructed to return to the emergency department with any new, worsening, or concerning symptoms. Patient verbalized understanding. This case was discussed in detail with the attending ED physician, Dr. Simental. Presentation, findings, and treatment plan discussed in detail as well. - Lab Data Result diagrams: 10/11/23 14:56 10/11/23 14:56 Lab Results 10/11/23 10/11/23 10/11/23 Range/Units 14:56 14:56 14:56 WBC 6.0 (3.8-10.6) k/uL RBC 5.02 (4.30-5.90) m/uL Hgb 15.0 (13.0-17.5) gm/dL Hct 43.9 (39.0-53.0) % MCV 87.4 (80.0-100.0) fL MCH 29.9 (25.0-35.0) pg MCHC 34.2 (31.0-37.0) g/dL RDW 12.7 (11.5-15.5) % Plt Count 176 (150-450) k/uL MPV 7.2 Neutrophils % 93 % Lymphocytes % 4 % Monocytes % 1 % Eosinophils % 1 % Basophils % 0 % Neutrophils # 5.6 (1.3-7.7) k/uL Lymphocytes # 0.3 L (1.0-4.8) k/uL Monocytes # 0.1 (0-1.0) k/uL Eosinophils # 0.0 (0-0.7) k/uL Basophils # 0.0 (0-0.2) k/uL Sodium 137 (137-145) mmol/L Potassium 4.6 (3.5-5.1) mmol/L Chloride 103 (98-107) mmol/L Carbon Dioxide 25 (22-30) mmol/L Anion Gap 9 mmol/L BUN 25 H (9-20) mg/dL Creatinine 1.15 (0.66-1.25) mg/dL Est GFR (CKD-EPI)AfAm 75 (>60 ml/min/1.73 sqM) Est GFR (CKD-EPI)NonAf 65 (>60 ml/min/1.73 sqM) Glucose 140 H (74-99) mg/dL Calcium 8.7 (8.4-10.2) mg/dL Total Bilirubin 1.1 (0.2-1.3) mg/dL AST 23 (17-59) U/L ALT 14 (4-49) U/L Alkaline Phosphatase 84 (38-126) U/L Troponin I (0.000-0.034) ng/mL Total Protein 6.8 (6.3-8.2) g/dL Albumin 4.0 (3.5-5.0) g/dL Amylase 82 (30-110) U/L Lipase 92 (23-300) U/L Urine Color Yellow Urine Appearance Clear (Clear) Urine pH 5.0 (5.0-8.0) Ur Specific [place] 1.025 (1.001-1.035) Urine Protein Negative (Negative) Urine Glucose (UA) Negative (Negative) Urine Ketones Negative (Negative) Urine Blood Negative (Negative) Urine Nitrite Negative (Negative) Urine Bilirubin Negative (Negative) Urine Urobilinogen <2.0 (<2.0) mg/dL Ur Leukocyte Esterase Negative (Negative) Influenza Type A (PCR) (Not Detectd) Influenza Type B (PCR) (Not Detectd) RSV (PCR) (Not Detectd) SARS-CoV-2 (PCR) (Not Detectd) 10/11/23 10/11/23 Range/Units 14:56 14:56 WBC (3.8-10.6) k/uL RBC (4.30-5.90) m/uL Hgb (13.0-17.5) gm/dL Hct (39.0-53.0) % MCV (80.0-100.0) fL MCH (25.0-35.0) pg MCHC (31.0-37.0) g/dL RDW (11.5-15.5) % Plt Count (150-450) k/uL MPV Neutrophils % % Lymphocytes % % Monocytes % % Eosinophils % % Basophils % % Neutrophils # (1.3-7.7) k/uL Lymphocytes # (1.0-4.8) k/uL Monocytes # (0-1.0) k/uL Eosinophils # (0-0.7) k/uL Basophils # (0-0.2) k/uL Sodium (137-145) mmol/L Potassium (3.5-5.1) mmol/L Chloride (98-107) mmol/L Carbon Dioxide (22-30) mmol/L Anion Gap mmol/L BUN (9-20) mg/dL Creatinine (0.66-1.25) mg/dL Est GFR (CKD-EPI)AfAm (>60 ml/min/1.73 sqM) Est GFR (CKD-EPI)NonAf (>60 ml/min/1.73 sqM) Glucose (74-99) mg/dL Calcium (8.4-10.2) mg/dL Total Bilirubin (0.2-1.3) mg/dL AST (17-59) U/L ALT (4-49) U/L Alkaline Phosphatase (38-126) U/L Troponin I <0.012 (0.000-0.034) ng/mL Total Protein (6.3-8.2) g/dL Albumin (3.5-5.0) g/dL Amylase (30-110) U/L Lipase (23-300) U/L Urine Color Urine Appearance (Clear) Urine pH (5.0-8.0) Ur Specific [place] (1.001-1.035) Urine Protein (Negative) Urine Glucose (UA) (Negative) Urine Ketones (Negative) Urine Blood (Negative) Urine Nitrite (Negative) Urine Bilirubin (Negative) Urine Urobilinogen (<2.0) mg/dL Ur Leukocyte Esterase (Negative) Influenza Type A (PCR) Not Detected (Not Detectd) Influenza Type B (PCR) Not Detected (Not Detectd) RSV (PCR) Not Detected (Not Detectd) SARS-CoV-2 (PCR) Not Detected (Not Detectd) - Radiology Data Radiology results: report reviewed, image reviewed Disposition Clinical Impression: Nausea & vomiting, Viral infection Disposition: HOME SELF-CARE Instructions (If sedation given, give patient instructions): Acute Nausea and Vomiting (ED) Additional Instructions: Return to the emergency department with any new, worsening, or concerning symptoms. Alternate with ibuprofen and Tylenol as needed for fevers. You can take the Zofran up to every 8 hours as needed for nausea and vomiting. Slowly advance your diet as tolerated and remain well-hydrated. Follow up with your primary care provider in 1-2 days. Prescriptions: Ondansetron Odt [Zofran Odt] 4 mg PO Q8HR PRN #20 tab PRN Reason: Nausea And Vomiting Is patient prescribed a controlled substance at d/c from ED?: No Referrals: Priyank Mcnulty DO [Primary Care Provider] - 1-2 days Time of Disposition: 17:12
[2023-10-11] MEDS: ONDANSETRON 4 MG/2 ML VIAL IVP STA ×2 (14:57→17:28)
[2023-10-11] MEDS: ACETAMINOPHEN TAB 500 MG TAB PO STA (14:58)
[2023-10-11] MEDS: SODIUM CHLORIDE 0.9% 1,000 ML IV STA (15:04)
[2023-10-11 15:24] LABS: Appearance,Urine Clear (Clear); Bilirubin,Urine Negative (Negative); Blood,Urine Negative (Negative); Color,Urine Yellow; Glucose,Urine (UA) Negative (Negative); Ketones,Urine Negative (Negative); Leukocyte Esterase,Urine Negative (Negative); Nitrite,Urine Negative (Negative); Protein,Urine Negative (Negative); Specific Gravity,Urine 1.025 (1.001-1.035); Urobilinogen,Urine <2.0 mg/dL (<2.0)
[2023-10-11 15:30] LABS: ALT 14 U/L (4-49); AST 23 U/L (17-59); African American GFR (CKD) 75 (>60 ml/min/1.73 sqM); Alkaline Phosphatase 84 U/L (38-126); Amylase 82 U/L (30-110); Anion Gap 9 mmol/L; Blood Urea Nitrogen 25 mg/dL (9-20); Calcium 8.7 mg/dL (8.4-10.2); Carbon Dioxide 25 mmol/L (22-30); Chloride 103 mmol/L (98-107); Glucose 140 mg/dL (74-99); Lipase 92 U/L (23-300); Non-African American GFR(CKD) 65 (>60 ml/min/1.73 sqM); Potassium 4.6 mmol/L (3.5-5.1); Sodium 137 mmol/L (137-145); Total Bilirubin 1.1 mg/dL (0.2-1.3); Total Protein 6.8 g/dL (6.3-8.2)
[2023-10-11 15:45] LABS: Basophils % (A) 0 %; Eosinophils % (A) 1 %; HCT 43.9 % (39.0-53.0); Lymphocytes # (A) 0.3 k/uL (1.0-4.8); Lymphocytes % (A) 4 %; MCH 29.9 pg (25.0-35.0); MCHC 34.2 g/dL (31.0-37.0); MCV 87.4 fL (80.0-100.0); Mean Platelet Volume 7.2; Monocytes # (A) 0.1 k/uL (0-1.0); Monocytes % (A) 1 %; Neutrophils # (A) 5.6 k/uL (1.3-7.7); Neutrophils % (A) 93 %; Platelet Count 176 k/uL (150-450); RBC 5.02 m/uL (4.30-5.90); RDW 12.7 % (11.5-15.5)
[2023-10-11] MEDS: IBUPROFEN 600 MG TAB PO STA (16:45)
--- NOTE | 2023-10-11 17:04 | XR ---
EXAMINATION TYPE: XR chest 2V DATE OF EXAM: 10/11/2023 4:30 PM CLINICAL INDICATION:Male, 68 years old with history of Weakness; MERGED WITH [facility] COMPARISON: Chest radiographs from 07/10/2012. TECHNIQUE: XR chest 2V Frontal and lateral views of the chest. FINDINGS: Lungs/Pleura: There is no evidence of pleural effusion, focal consolidation, or pneumothorax. Pulmonary vascularity: Unremarkable. Heart/mediastinum: Cardiomediastinal silhouette is unremarkable. Musculoskeletal: No acute osseous pathology. Other findings: None IMPRESSION: No acute cardiopulmonary disease/process.
[2023-10-11] MEDS: ONDANSETRON 4 MG ODT STARTER PACK 2 TAB BTL PO STA (17:36)
[2023-10-11 19:09] VITALS: BP 143/74; PULSE 97; RESP 22; TEMP 99.1
== END 2023-10-11 17:50 | disposition home or self-care (01) ==
LOC: EC 13:54
DX: B34.9 Viral infection, unspecified (principal); R11.2 Nausea with vomiting, unspecified; I10 Essential (primary) hypertension; E11.36 Type 2 diabetes mellitus with diabetic cataract; G47.30 Sleep apnea, unspecified; F41.9 Anxiety disorder, unspecified; Z79.82 Long term (current) use of aspirin; Z79.899 Other long term (current) drug therapy; Z86.73 Personal history of transient ischemic attack (TIA), and cerebral infarction without residual deficits; Z88.5 Allergy status to narcotic agent; Z88.8 Allergy status to other drugs, medicaments and biological substances; Z20.822 Contact with and (suspected) exposure to COVID-19
CPT/HCPCS: 36415; 93005; 80053; 82150; 83690; 84484; 85025; 81003; 87636; 71046; 99284; 96374; J2405; S0119

== ENCOUNTER 2023-10-12 19:24 | Inpatient (IN) | payer MEDICARE, BC ==
[2023-10-12 20:02] LABS: Glucose,Whole Blood 135 mg/dL (70-110)
[2023-10-12 20:16] LABS: Basophils % (A) 0 %; Eosinophils # (A) 0.1 k/uL (0-0.7); Eosinophils % (A) 1 %; HCT 35.9 % (39.0-53.0); HGB 12.1 gm/dL (13.0-17.5); Lymphocytes % (A) 9 %; MCH 29.3 pg (25.0-35.0); MCHC 33.6 g/dL (31.0-37.0); MCV 87.2 fL (80.0-100.0); Mean Platelet Volume 7.2; Monocytes # (A) 0.5 k/uL (0-1.0); Monocytes % (A) 5 %; Neutrophils # (A) 9.5 k/uL (1.3-7.7); Neutrophils % (A) 84 %; Platelet Count 153 k/uL (150-450); RBC 4.12 m/uL (4.30-5.90); RDW 12.7 % (11.5-15.5); WBC 11.3 k/uL (3.8-10.6)
--- NOTE | 2023-10-12 20:27 | ED ---
General Adult HPI - General Chief complaint: Nausea/Vomiting/Diarrhea Stated complaint: diarrhea Time Seen by Provider: 10/12/23 19:33 Source: patient, EMS Mode of arrival: EMS Limitations: no limitations - History of Present Illness Initial comments: 68-year-old male presenting with chief complaint of weakness. Patient was seen at our ER yesterday, at that time he was nauseated and vomiting, as well as having diarrhea. He was determined to have a viral infection and sent home with Zofran. His caregiver at the bedside states that the patient has been increasingly weaker since coming home. He has not had any nausea or vomiting, and he has not taken any Zofran. He has had continued diarrhea. He admits to right-sided abdominal pain and states "my kidney hurts". Patient had 2 falls at home today, caregiver denies any head injury. Patient is on Plavix. No loss of consciousness. Caregiver also states that the patient has not urinated since early this morning, and he has been continuing to drink Pedialyte. Caregiver states that the patient has been confused today, he has been having confused conversation and staring off while doing things like attempting to feed himself. Review of systems somewhat limited due to the patient's mental status. He denies chest pain, difficulty breathing, headache. - Related Data Home Medications Medication Instructions Recorded Confirmed Aspirin EC [Ecotrin Low Dose] 81 mg PO DAILY 01/09/22 10/12/23 Meclizine HCl 25 mg PO HS 01/09/22 10/12/23 Vit C/E/Zn/Coppr/Lutein/Zeaxan 1 cap PO BID 01/09/22 10/12/23 [Preservision Areds 2 Softgel] Carbidopa-Levodopa 25-100 mg 1 tab PO TID@0900,1400,1900 09/29/23 10/12/23 [Sinemet 25-100] amLODIPine BESYLATE/BENAZEPRIL 1 cap PO HS 09/29/23 10/12/23 [Lotrel 5-20 mg Capsule] Escitalopram [Lexapro] 20 mg PO DAILY 10/12/23 10/12/23 Previous Rx's Medication Instructions Recorded Clopidogrel [Plavix] 75 mg PO DAILY tab 06/08/23 Allergies Allergy/AdvReac Type Severity Reaction Status Date / Time cephalexin Allergy Itching Verified 10/12/23 19:32 cockroach Allergy Unknown Verified 10/12/23 19:32 cyclobenzaprine Allergy Chest Pain Verified 10/12/23 19:32 morphine AdvReac Hallucinati Verified 10/12/23 19:32 ons Review of Systems ROS Statement: Those systems with pertinent positive or pertinent negative responses have been documented in the HPI. ROS Other: All systems not noted in ROS Statement are negative. Past Medical History Past Medical History: CVA/TIA, Diabetes Mellitus, Hypertension, Sleep Apnea/CPAP/BIPAP Additional Past Medical History / Comment(s): Parkinsons. diet controlled DM History of Any Multi-Drug Resistant Organisms: None Reported Past Surgical History: Hernia Repair Additional Past Surgical History / Comment(s): benign tumor removed lt lower jaw and artifical jaw inserted, cataract- bilat, sinus surgery, carpal tunnel surgery right wrist 1969' Past Anesthesia/Blood Transfusion Reactions: Motion Sickness Past Psychological History: Anxiety Smoking Status: Never smoker Past Alcohol Use History: None Reported Past Drug Use History: None Reported - Past Family History Father Family Medical History: Cancer, Diabetes Mellitus Mother Family Medical History: CVA/TIA General Exam Limitations: no limitations General appearance: alert, in no apparent distress Head exam: Present: atraumatic, normocephalic Eye exam: Present: normal appearance Neck exam: Present: normal inspection Respiratory exam: Present: normal lung sounds bilaterally. Absent: respiratory distress, wheezes, rales, rhonchi, stridor Cardiovascular Exam: Present: regular rate, normal rhythm, normal heart sounds. Absent: systolic murmur, diastolic murmur, rubs, gallop, clicks GI/Abdominal exam: Present: soft, distended, tenderness. Absent: guarding, rebound, rigid Expanded Eye Response: (4) open spontaneously Motor Response: (6) obeys commands Verbal Response: (5) oriented [place] Total: 15 Psychiatric exam: Present: flat affect Skin exam: Present: warm, dry Course Vital Signs 10/12/23 10/12/23 19:28 23:13 Temperature 98.0 F Pulse Rate 85 88 Respiratory 18 16 Rate Blood Pressure 111/64 124/78 O2 Sat by Pulse 95 95 Oximetry EKG Findings - EKG Comments: EKG Findings:: Sinus rhythm ventricular rate 82. FL interval 157. QRS 118. QT 409. QTc 447. Incomplete right bundle branch block. Left axis deviation. No acute changes from yesterday's EKG. Medical Decision Making - Medical Decision Making Was pt. sent in by a medical professional or institution ([facility], [employer], urgent care, hospital, or [facility]...) When possible be specific @ -No Did you speak to anyone other than the patient for history (EMS, parent, family, police, friend...)? What history was obtained from this source @ -History obtained from the patient's caregiver Did you review nursing and triage notes (agree or disagree)? Why? @ -I reviewed and agree with nursing and triage notes Were old charts reviewed (outside hosp., previous admission, EMS record, old EKG, old radiological studies, urgent care reports/EKG's, [facility] records)? Report findings @ -Patient's visit yesterday was reviewed Differential Diagnosis (chest pain, altered mental status, abdominal pain women, abdominal pain men, vaginal bleeding, weakness, fever, dyspnea, syncope, headache, dizziness, GI bleed, back pain, seizure, CVA, palpatations, mental health, musculoskeletal)? @ -MDM Differential Abdominal Pain Men: Appendicitis, cholecystitis, diverticulosis, ischemic bowel, pancreatitis, hepatitis, UTI, gastroenteritis, AAA, incarcerated hernia, bowel obstruction, constipation, inflammatory bowel, hepatitis, peptic ulcer disease, splenic infarction, perforated viscus, testicular torsion... This is not meant to be an all-inclusive list EKG interpreted by me (3pts min.). @ -As above X-rays interpreted by me (1pt min.). @ -None done CT interpreted by me (1pt min.). @ -CT of the brain and cervical spine shows no acute intracranial process or cervical spine fracture. CT of the abdomen and pelvis shows findings consistent with acute appendicitis with contained mesocolon/extraperitoneal perforation with tiny gas bubbles within the mesoappendix. There is no pneumoperitoneum. No peritoneal fluid. No fluid collection. U/S interpreted by me (1pt. min.). @ -None done What testing was considered but not performed or refused? (CT, X-rays, U/S, labs)? Why? @ -None What meds were considered but not given or refused? Why? @ -None Did you discuss the management of the patient with other professionals (professionals i.e. , PA, H[employer] W[employer] HE[employer] INSTALLER, lab, RT, psych nurse, social media marketer, railcar foreman, teacher, education officer, special education case manager)? Give summary @ -I spoke with Dr. Soto who accepted admission Was smoking cessation discussed for >3mins.? @ -No Was critical care preformed (if so, how long)? @ -No Were there social determinants of health that impacted care today? How? (Homelessness, low income, unemployed, alcoholism, drug addiction, transpo rtation, low edu. Level, literacy, decrease access to med. care, penitentiary, rehab)? @ -No Was there de-escalation of care discussed even if they declined (Discuss DNR or withdrawal of care, Hospice)? DNR status @ -No What co-morbidities impacted this encounter? (DM, HTN, Smoking, COPD, CAD, Cancer, CVA, ARF, Chemo, Hep., AIDS, mental health diagnosis, sleep apnea, morbid obesity)? @ -None Was patient admitted / discharged? Hospital course, mention meds given and route, prescriptions, significant lab abnormalities, going to OR and other pertinent info. @ -68-year-old male presenting with chief complaint of weakness and altered mental status. His caregiver states that he has not urinated much today and has fallen twice. History and physical exam are conducted. Lab work shows WBC 11.3 and hemoglobin 12.1. Creatinine 1.33 and BUN 31, which are slightly elevated from the patient's baseline. He is receiving IV fluids. Urine showed no infectious process. Patient was negative for influenza, RSV, COVID. Negative CT of the brain and cervical spine. CT abdomen and pelvis was positive for appendicitis. Blood cultures were drawn and patient was started on Zosyn. Patient is admitted to Dr. Thorne for surgery tomorrow. Patient and family educated on today's findings. They are agreeable with the plan. I discussed this case with my attending Dr. Dubois. Undiagnosed new problem with uncertain prognosis? @ -No Drug Therapy requiring intensive monitoring for toxicity (Heparin, Nitro, Insulin, Cardizem)? @ -No Were any procedures done? @ -No Diagnosis/symptom? @ -Appendicitis Acute, or Chronic, or Acute on Chronic? @ -Acute Uncomplicated (without systemic symptoms) or Complicated (systemic symptoms)? @ -Complicated Side effects of treatment? @ -No Exacerbation, Progression, or Severe Exacerbation? @ -No Poses a threat to life or bodily function? How? (Chest pain, USA, MD, pneumonia, PE, COPD, DKA, ARF, appy, cholecystitis, CVA, Diverticulitis, Homicidal, Suicidal, threat to staff... and all critical care pts) @ -Yes - Lab Data Result diagrams: 10/14/23 00:49 10/12/23 19:53 Lab Results 10/12/23 10/12/23 10/12/23 Range/Units 19:50 19:53 19:53 WBC 11.3 H (3.8-10.6) k/uL RBC 4.12 L (4.30-5.90) m/uL Hgb 12.1 L (13.0-17.5) gm/dL Hct 35.9 L (39.0-53.0) % MCV 87.2 (80.0-100.0) fL MCH 29.3 (25.0-35.0) pg MCHC 33.6 (31.0-37.0) g/dL RDW 12.7 (11.5-15.5) % Plt Count 153 (150-450) k/uL MPV 7.2 Neutrophils % 84 % Lymphocytes % 9 % Monocytes % 5 % Eosinophils % 1 % Basophils % 0 % Neutrophils # 9.5 H (1.3-7.7) k/uL Lymphocytes # 1.0 (1.0-4.8) k/uL Monocytes # 0.5 (0-1.0) k/uL Eosinophils # 0.1 (0-0.7) k/uL Basophils # 0.0 (0-0.2) k/uL PT 14.5 H (10.0-12.5) sec INR 1.4 H (<1.2) APTT 26.3 (22.0-30.0) sec Sodium (137-145) mmol/L Potassium (3.5-5.1) mmol/L Chloride (98-107) mmol/L Carbon Dioxide (22-30) mmol/L Anion Gap mmol/L BUN (9-20) mg/dL Creatinine (0.66-1.25) mg/dL Est GFR (CKD-EPI)AfAm (>60 ml/min/1.73 sqM) Est GFR (CKD-EPI)NonAf (>60 ml/min/1.73 sqM) Glucose (74-99) mg/dL POC Glucose (mg/dL) (70-110) mg/dL POC Glu Sole Painter ID Calcium (8.4-10.2) mg/dL Total Bilirubin (0.2-1.3) mg/dL AST (17-59) U/L ALT (4-49) U/L Alkaline Phosphatase (38-126) U/L Troponin I (0.000-0.034) ng/mL Total Protein (6.3-8.2) g/dL Albumin (3.5-5.0) g/dL Urine Color Urine Appearance (Clear) Urine pH (5.0-8.0) Ur Specific [place] (1.001-1.035) Urine Protein (Negative) Urine Glucose (UA) (Negative) Urine Ketones (Negative) Urine Blood (Negative) Urine Nitrite (Negative) Urine Bilirubin (Negative) Urine Urobilinogen (<2.0) mg/dL Ur Leukocyte Esterase (Negative) Influenza Type A (PCR) Not Detected (Not Detectd) Influenza Type B (PCR) Not Detected (Not Detectd) RSV (PCR) Not Detected (Not Detectd) SARS-CoV-2 (PCR) Not Detected (Not Detectd) Blood Type Confirm 10/12/23 10/12/23 10/12/23 Range/Units 19:53 19:53 19:53 WBC (3.8-10.6) k/uL RBC (4.30-5.90) m/uL Hgb (13.0-17.5) gm/dL Hct (39.0-53.0) % MCV (80.0-100.0) fL MCH (25.0-35.0) pg MCHC (31.0-37.0) g/dL RDW (11.5-15.5) % Plt Count (150-450) k/uL MPV Neutrophils % % Lymphocytes % % Monocytes % % Eosinophils % % Basophils % % Neutrophils # (1.3-7.7) k/uL Lymphocytes # (1.0-4.8) k/uL Monocytes # (0-1.0) k/uL Eosinophils # (0-0.7) k/uL Basophils # (0-0.2) k/uL PT (10.0-12.5) sec INR (<1.2) APTT (22.0-30.0) sec Sodium 134 L (137-145) mmol/L Potassium 4.1 (3.5-5.1) mmol/L Chloride 104 (98-107) mmol/L Carbon Dioxide 24 (22-30) mmol/L Anion Gap 6 mmol/L BUN 31 H (9-20) mg/dL Creatinine 1.33 H (0.66-1.25) mg/dL Est GFR (CKD-EPI)AfAm 63 (>60 ml/min/1.73 sqM) Est GFR (CKD-EPI)NonAf 54 (>60 ml/min/1.73 sqM) Glucose 137 H (74-99) mg/dL POC Glucose (mg/dL) (70-110) mg/dL POC Glu Sole Painter ID Calcium 8.0 L (8.4-10.2) mg/dL Total Bilirubin 1.1 (0.2-1.3) mg/dL AST 38 (17-59) U/L ALT 8 (4-49) U/L Alkaline Phosphatase 58 (38-126) U/L Troponin I <0.012 (0.000-0.034) ng/mL Total Protein 5.7 L (6.3-8.2) g/dL Albumin 3.1 L (3.5-5.0) g/dL Urine Color Yellow Urine Appearance Clear (Clear) Urine pH 5.5 (5.0-8.0) Ur Specific [place] 1.023 (1.001-1.035) Urine Protein Trace H (Negative) Urine Glucose (UA) Negative (Negative) Urine Ketones Negative (Negative) Urine Blood Negative (Negative) Urine Nitrite Negative (Negative) Urine Bilirubin Negative (Negative) Urine Urobilinogen <2.0 (<2.0) mg/dL Ur Leukocyte Esterase Negative (Negative) Influenza Type A (PCR) (Not Detectd) Influenza Type B (PCR) (Not Detectd) RSV (PCR) (Not Detectd) SARS-CoV-2 (PCR) (Not Detectd) Blood Type Confirm 10/12/23 10/12/23 Range/Units 19:53 19:54 WBC (3.8-10.6) k/uL RBC (4.30-5.90) m/uL Hgb (13.0-17.5) gm/dL Hct (39.0-53.0) % MCV (80.0-100.0) fL MCH (25.0-35.0) pg MCHC (31.0-37.0) g/dL RDW (11.5-15.5) % Plt Count (150-450) k/uL MPV Neutrophils % % Lymphocytes % % Monocytes % % Eosinophils % % Basophils % % Neutrophils # (1.3-7.7) k/uL Lymphocytes # (1.0-4.8) k/uL Monocytes # (0-1.0) k/uL Eosinophils # (0-0.7) k/uL Basophils # (0-0.2) k/uL PT (10.0-12.5) sec INR (<1.2) APTT (22.0-30.0) sec Sodium (137-145) mmol/L Potassium (3.5-5.1) mmol/L Chloride (98-107) mmol/L Carbon Dioxide (22-30) mmol/L Anion Gap mmol/L BUN (9-20) mg/dL Creatinine (0.66-1.25) mg/dL Est GFR (CKD-EPI)AfAm (>60 ml/min/1.73 sqM) Est GFR (CKD-EPI)NonAf (>60 ml/min/1.73 sqM) Glucose (74-99) mg/dL POC Glucose (mg/dL) 135 H (70-110) mg/dL POC Glu Sole Painter ID Chinyere Romero Calcium (8.4-10.2) mg/dL Total Bilirubin (0.2-1.3) mg/dL AST (17-59) U/L ALT (4-49) U/L Alkaline Phosphatase (38-126) U/L Troponin I (0.000-0.034) ng/mL Total Protein (6.3-8.2) g/dL Albumin (3.5-5.0) g/dL Urine Color Urine Appearance (Clear) Urine pH (5.0-8.0) Ur Specific [place] (1.001-1.035) Urine Protein (Negative) Urine Glucose (UA) (Negative) Urine Ketones (Negative) Urine Blood (Negative) Urine Nitrite (Negative) Urine Bilirubin (Negative) Urine Urobilinogen (<2.0) mg/dL Ur Leukocyte Esterase (Negative) Influenza Type A (PCR) (Not Detectd) Influenza Type B (PCR) (Not Detectd) RSV (PCR) (Not Detectd) SARS-CoV-2 (PCR) (Not Detectd) Blood Type Confirm O Negative Disposition Clinical Impression: Appendicitis Disposition: ADMITTED IP TO THIS HOSP Condition: Fair Time of Disposition: 22:47
[2023-10-12 20:29] LABS: ALT 8 U/L (4-49); AST 38 U/L (17-59); African American GFR (CKD) 63 (>60 ml/min/1.73 sqM); Albumin 3.1 g/dL (3.5-5.0); Alkaline Phosphatase 58 U/L (38-126); Anion Gap 6 mmol/L; Blood Urea Nitrogen 31 mg/dL (9-20); Carbon Dioxide 24 mmol/L (22-30); Chloride 104 mmol/L (98-107); Glucose 137 mg/dL (74-99); Non-African American GFR(CKD) 54 (>60 ml/min/1.73 sqM); Potassium 4.1 mmol/L (3.5-5.1); Sodium 134 mmol/L (137-145); Total Bilirubin 1.1 mg/dL (0.2-1.3); Total Protein 5.7 g/dL (6.3-8.2)
[2023-10-12 20:55] LABS: Appearance,Urine Clear (Clear); Bilirubin,Urine Negative (Negative); Blood,Urine Negative (Negative); Color,Urine Yellow; Glucose,Urine (UA) Negative (Negative); Ketones,Urine Negative (Negative); Leukocyte Esterase,Urine Negative (Negative); Nitrite,Urine Negative (Negative); PH, Urine 5.5 (5.0-8.0); Protein,Urine Trace (Negative); Specific Gravity,Urine 1.023 (1.001-1.035); Urobilinogen,Urine <2.0 mg/dL (<2.0)
[2023-10-12 20:56] LABS: INR 1.4 (<1.2); Partial Thromboplastin Time 26.3 sec (22.0-30.0); Prothrombin Time 14.5 sec (10.0-12.5)
[2023-10-12] MEDS: SODIUM CHLORIDE 0.9% 1,000 ML IV ONE (21:40)
--- NOTE | 2023-10-12 21:56 | CT ---
EXAMINATION TYPE: CT brain cspine wo con DATE OF EXAM: 10/12/2023 COMPARISON: 06/05/2023 HISTORY: Nausea/Vomiting/Diarrhea, fell, didnt hit head, no loc CT DLP: 1777.1 mGycm. Automated Exposure Control for Dose Reduction was Utilized. TECHNIQUE: CT scan of the head and cervical spine are performed without contrast. FINDINGS: There is no acute intracranial hemorrhage, mass effect, or midline shift identified. The v entricles and sulci are unremarkable. Orbits are intact. Paranasal sinuses and middle ear cavities an d mastoid sinus air cells are clear. Cervical spine is visualized in its entirety from C1 through upper thoracic levels and demonstrates s atisfactory alignment without evidence of acute fracture or dislocation. Prevertebral soft tissue ap pears within normal limits. Multilevel advanced cervical spondylosis noted. The C1-C2 articulation i s unremarkable. IMPRESSION: 1. There is no acute fracture or dislocation evident in the cervical spine. 2. No acute intracranial hemorrhage, mass effect, or midline shift is seen.
--- NOTE | 2023-10-12 22:08 | CT ---
EXAMINATION TYPE: CT abdomen pelvis w con DATE OF EXAM: 10/12/2023 COMPARISON: None. HISTORY: Nausea/Vomiting/Diarrhea, fell, didnt hit head, no loc CT DLP: 1694.6 mGycm, Automated Exposure Control for Dose Reduction was Utilized. CONTRAST: CT scan of the abdomen and pelvis is performed with oral and with IV Contrast, patient inje cted with 80 ml mL of Isovue 300. FINDINGS: LUNG BASES: Bibasilar partial airlessness noted, which can correlate with a clinical diagnosis of dev eloping bibasilar bronchopneumonia, versus bibasilar partial atelectasis of lower lobes. LIVER/GB: No significant abnormality is appreciated. PANCREAS: No significant abnormality is seen. SPLEEN: No significant abnormality is seen. ADRENALS: No significant abnormality is seen. KIDNEYS: No significant abnormality is seen. 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 The appendix comes off posteriorly, just caudal to the level of the lower margin of the right kidney. The appendi x is ill-defined, dilated to 15 mm caliber (top normal 6 mm) and shows periappendiceal inflammatory e dematous change and tiny gas bubbles within the surrounding mesoappendix. There is no pneumoperitoneu m. No peritoneal fluid. No focal fluid collection. No bowel obstruction. Axial images 42-51. Coronal images 39-53. PELVIC VISCERA: Unremarkable. LYMPH NODES: No greater than 1cm abdominal or pelvic lymph nodes are appreciated. OSSEOUS STRUCTURES: No focal aggressive finding. Limitation of the study: Without IV contrast there is limited CT sensitivity for focal visceral lesions, intraluminal filling defects, and vascular pathology. IMPRESSION: Findings consistent with acute appendicitis with contained mesocolon/extraperitoneal perforation with tiny gas bubbles within the mesoappendix. There is no pneumoperitoneum. No peritoneal fluid. No flui d collection. Lung base findings as discussed.
[2023-10-12] MEDS ORDERED: NALOXONE 0.4 MG/ML 1 ML VIAL IV PRN (22:54)
[2023-10-12] MEDS ORDERED: ONDANSETRON 4 MG/2 ML VIAL IVP PRN (22:54)
[2023-10-12] MEDS: PIPERACILLIN-TAZOBACTAM 3.375 GM in SODIUM CHLORIDE 0.9% 100 ML IVPB STA (23:05)
[2023-10-12 23:49] LABS: Glucose,Whole Blood 130 mg/dL (70-110)
[2023-10-13] MEDS: SODIUM CHLORIDE 0.9% 1,000 ML IV SCH (00:28)
[2023-10-13] MEDS: HYDROmorphone 1 MG/ML 1 ML SYRINGE IVP PRN (00:48)
[2023-10-13] MEDS: PIPERACILLIN-TAZOBACTAM 3.375 GM in SODIUM CHLORIDE 0.9% 100 ML IVPB SCH (09:27)
--- NOTE | 2023-10-13 09:59 | XR ---
EXAMINATION TYPE: XR chest 1V portable DATE OF EXAM: 10/13/2023 9:42 AM CLINICAL INDICATION:Male, 68 years old with history of sob, cough; COMPARISON: Chest radiographs from 10/11/2023. TECHNIQUE: XR chest 1V portable Frontal view of the chest. FINDINGS: Lungs/Pleura: There is no evidence of pleural effusion, focal consolidation, or pneumothorax. Pulmonary vascularity: Unremarkable. Heart/mediastinum: Cardiomediastinal silhouette is unremarkable. Musculoskeletal: No acute osseous pathology. IMPRESSION: Low lung volumes with a generalized hazy appearance which could represent atelectasis. Superimposed C OPD changes.
[2023-10-13] MEDS ORDERED: DEXTROSE 50% SYRINGE 50 ML IVP PRN ×2 (13:14)
[2023-10-13 13:25] LABS: Glucose,Whole Blood 92 mg/dL (70-110)
--- NOTE | 2023-10-13 13:47 | P.GSHP ---
History of Present Illness H&P Date: 10/13/23 CHIEF COMPLAINT: Abdominal pain HISTORY OF PRESENT ILLNESS: This is a 68-year-old male who presents the hospital with abdominal pain x 1 week. Patient had initially came into the ER yesterday and was determined to have a viral infection and was discharged home. He presented back to the hospital as right sided abdominal pain. Denies any nausea or vomiting. He also has been having falls and some confusion. He is on Plavix at home. He is unsure of when the last time he took the Plavix. Patient does have a history of Parkinson's disease and CVA. He had a CT scan abdomen and pelvis that had shown acute appendicitis with contained perforation and no fluid collection. Patient is short of breath and requiring oxygen. He does report cough. PAST MEDICAL HISTORY: CVA, diabetes mellitus, hypertension, sleep apnea, Parkinson's, diet-controlled diabetes mellitus PAST SURGICAL HISTORY: Hernia repair, benign tumor removed lt lower jaw and artifical jaw inserted, cataract- bilat, sinus surgery, carpal tunnel surgery right wrist MEDICATIONS: See below ALLERGIES: See below SOCIAL HISTORY: No illicit drug use. REVIEW OF SYSTEMS: CONSTITUTIONAL: Denies fever or chills. HEENT: Denies blurred vision, vision changes, or eye pain. Denies hemoptysis CARDIOVASCULAR: Denies chest pain or pressure. RESPIRATORY: No shortness of breath. GASTROINTESTINAL: See HPI for pertinent findings HEMATOLOGIC: Denies bleeding disorders. GENITOURINARY: Denies any blood in urine or increased urinary frequency. SKIN: Denies pruitis. Denies rash. PHYSICAL EXAM: VITAL SIGNS: Reviewed GENERAL: Well-developed in no acute distress. HEENT: No sclera icterus. Extraocular movements grossly intact. Moist buccal mucosa. Head is atraumatic, normocephalic. No nasal drainage. ABDOMEN: Soft. Nondistended. Tenderness with palpation to right lower quadrant. Patient does have bruising noted the right flank. NEUROLOGIC: Alert and oriented. Cranial nerves II through XII grossly intact. LABORATORY DATA: WBC 11.3 Hgb 12.1 platelets 153 INR 1.4 Sodium 134 potassium 4.1 Cr 1.33 IMAGING: CT scan abdomen pelvis findings consistent with acute appendicitis with contained mesocolon/extraperitoneal perforation with tiny gas bubbles within the mesoappendix. There is no pneumoperitoneum. No peritoneal fluid. No fluid collection. Chest x-ray lung volumes are generalized hazy appearance which could represent atelectasis. Superimposed COPD changes. CT scan head cervical spine no fracture or dislocation of the cervical spine no acute intracranial hemorrhage ASSESSMENT: 1. Acute appendicitis with contained perforation 2. Atelectasis PLAN: -Patient scheduled for laparoscopic appendectomy today with Dr. Thorne -Keep patient n.p.o. -Continue antibiotics -Continue IV fluids -Agree with adding nebulizer treatments for atelectasis -Medicine service consulted for medical management Physician Floodplain Manager note has been reviewed by physician. Signing provider agrees with the documented findings, assessment, and plan of care. Past Medical History Past Medical History: CVA/TIA, Diabetes Mellitus, Hypertension, Sleep Apnea/CPAP/BIPAP Additional Past Medical History / Comment(s): Parkinsons. diet controlled DM History of Any Multi-Drug Resistant Organisms: None Reported Past Surgical History: Hernia Repair Additional Past Surgical History / Comment(s): benign tumor removed lt lower jaw and artifical jaw inserted, cataract- bilat, sinus surgery, carpal tunnel surgery right wrist 1969' Past Anesthesia/Blood Transfusion Reactions: Motion Sickness Past Psychological History: Anxiety Smoking Status: Never smoker Past Alcohol Use History: None Reported Past Drug Use History: None Reported - Past Family History Father Family Medical History: Cancer, Diabetes Mellitus Mother Family Medical History: CVA/TIA Medications and Allergies Home Medications Medication Instructions Recorded Confirmed Type Aspirin EC [Ecotrin Low Dose] 81 mg PO DAILY 01/09/22 10/12/23 History Meclizine HCl 25 mg PO HS 01/09/22 10/12/23 History Vit C/E/Zn/Coppr/Lutein/Zeaxan 1 cap PO BID 01/09/22 10/12/23 History [Preservision Areds 2 Softgel] Clopidogrel [Plavix] 75 mg PO DAILY tab 06/08/23 10/12/23 Rx Carbidopa-Levodopa 25-100 mg 1 tab PO TID@0900,1400,1900 09/29/23 10/12/23 History [Sinemet 25-100] amLODIPine BESYLATE/BENAZEPRIL 1 cap PO HS 09/29/23 10/12/23 History [Lotrel 5-20 mg Capsule] Escitalopram [Lexapro] 20 mg PO DAILY 10/12/23 10/12/23 History Allergies Allergy/AdvReac Type Severity Reaction Status Date / Time cephalexin Allergy Itching Verified 10/12/23 19:32 cockroach Allergy Unknown Verified 10/12/23 19:32 cyclobenzaprine Allergy Chest Pain Verified 10/12/23 19:32 morphine AdvReac Hallucinati Verified 10/12/23 19:32 ons Surgical - Exam Vital Signs Temp Pulse Resp BP Pulse Ox 98.0 F 85 18 111/64 95 10/12/23 19:28 10/12/23 19:28 10/12/23 19:28 10/12/23 19:28 10/12/23 19:28 Results - Labs 10/12/23 19:53 10/12/23 19:53 Abnormal Lab Results - Last 24 Hours (Table) 10/12/23 10/12/23 10/12/23 Range/Units 19:53 19:53 19:53 WBC 11.3 H (3.8-10.6) k/uL RBC 4.12 L (4.30-5.90) m/uL Hgb 12.1 L (13.0-17.5) gm/dL Hct 35.9 L (39.0-53.0) % Neutrophils # 9.5 H (1.3-7.7) k/uL PT 14.5 H (10.0-12.5) sec INR 1.4 H (<1.2) Sodium 134 L (137-145) mmol/L BUN 31 H (9-20) mg/dL Creatinine 1.33 H (0.66-1.25) mg/dL Glucose 137 H (74-99) mg/dL POC Glucose (mg/dL) (70-110) mg/dL Calcium 8.0 L (8.4-10.2) mg/dL Total Protein 5.7 L (6.3-8.2) g/dL Albumin 3.1 L (3.5-5.0) g/dL Urine Protein (Negative) 10/12/23 10/12/23 10/12/23 Range/Units 19:53 19:54 23:48 WBC (3.8-10.6) k/uL RBC (4.30-5.90) m/uL Hgb (13.0-17.5) gm/dL Hct (39.0-53.0) % Neutrophils # (1.3-7.7) k/uL PT (10.0-12.5) sec INR (<1.2) Sodium (137-145) mmol/L BUN (9-20) mg/dL Creatinine (0.66-1.25) mg/dL Glucose (74-99) mg/dL POC Glucose (mg/dL) 135 H 130 H (70-110) mg/dL Calcium (8.4-10.2) mg/dL Total Protein (6.3-8.2) g/dL Albumin (3.5-5.0) g/dL Urine Protein Trace H (Negative) Diabetes panel 10/12/23 Range/Units 19:53 Sodium 134 L (137-145) mmol/L Potassium 4.1 (3.5-5.1) mmol/L Chloride 104 (98-107) mmol/L Carbon Dioxide 24 (22-30) mmol/L BUN 31 H (9-20) mg/dL Creatinine 1.33 H (0.66-1.25) mg/dL Glucose 137 H (74-99) mg/dL Calcium 8.0 L (8.4-10.2) mg/dL AST 38 (17-59) U/L ALT 8 (4-49) U/L Alkaline Phosphatase 58 (38-126) U/L Total Protein 5.7 L (6.3-8.2) g/dL Albumin 3.1 L (3.5-5.0) g/dL Calcium panel 10/12/23 Range/Units 19:53 Calcium 8.0 L (8.4-10.2) mg/dL Albumin 3.1 L (3.5-5.0) g/dL Pituitary panel 10/12/23 Range/Units 19:53 Sodium 134 L (137-145) mmol/L Potassium 4.1 (3.5-5.1) mmol/L Chloride 104 (98-107) mmol/L Carbon Dioxide 24 (22-30) mmol/L BUN 31 H (9-20) mg/dL Creatinine 1.33 H (0.66-1.25) mg/dL Glucose 137 H (74-99) mg/dL Calcium 8.0 L (8.4-10.2) mg/dL Adrenal panel 10/12/23 Range/Units 19:53 Sodium 134 L (137-145) mmol/L Potassium 4.1 (3.5-5.1) mmol/L Chloride 104 (98-107) mmol/L Carbon Dioxide 24 (22-30) mmol/L BUN 31 H (9-20) mg/dL Creatinine 1.33 H (0.66-1.25) mg/dL Glucose 137 H (74-99) mg/dL Calcium 8.0 L (8.4-10.2) mg/dL Total Bilirubin 1.1 (0.2-1.3) mg/dL AST 38 (17-59) U/L ALT 8 (4-49) U/L Alkaline Phosphatase 58 (38-126) U/L Total Protein 5.7 L (6.3-8.2) g/dL Albumin 3.1 L (3.5-5.0) g/dL
[2023-10-13] MEDS: ESCITALOPRAM 20 MG TAB PO SCH (14:35)
[2023-10-13] MEDS: INSULIN ASPART (NovoLOG) 100 UNIT/ML VIAL SQ SCH (14:35)
[2023-10-13] MEDS: amLODIPine 5 MG TAB PO SCH (14:35)
[2023-10-13] MEDS: CARBIDOPA-LEVODOPA 25-100 MG 1 EACH TAB PO SCH (14:35)
[2023-10-13] MEDS: PANTOPRAZOLE 40 MG/10 ML VIAL IVP SCH (14:50)
[2023-10-13] MEDS: IPRATROPIUM-ALBUTEROL 3 ML NEB INHALATION SCH (15:07)
[2023-10-13 15:58] LABS: INR 1.3 (<1.2)
[2023-10-13] MEDS: IPRATROPIUM-ALBUTEROL 3 ML NEB INHALATION PRN (16:40)
[2023-10-13 17:00] LABS: Glucose,Whole Blood 96 mg/dL (70-110)
[2023-10-13] MEDS: IV FLUID CONTINUATION 700 ML IV ONE (19:01)
[2023-10-13] MEDS ORDERED: SUCCINYLCHOLINE CHLORIDE 200 MG/10 ML VIAL IV ONE (19:46)
[2023-10-13] MEDS ORDERED: LIDOCAINE 1% INJ 10MG/ML (20 ML MDV) ONE (19:46)
[2023-10-13] MEDS ORDERED: PROPOFOL 10 MG/ML 20 ML VIAL IV ONE (19:46)
[2023-10-13] MEDS ORDERED: ONDANSETRON 4 MG/2 ML VIAL ONE (19:46)
[2023-10-13] MEDS ORDERED: NEOSTIGMINE 1 MG/ML 10 ML VIAL ONE (19:46)
[2023-10-13] MEDS ORDERED: ceFAZolin 1 GM/50 ML BAG (PMX) ONE (19:46)
[2023-10-13] MEDS ORDERED: fentaNYL (PF) 50 MCG/ML 2 ML AMP ONE (19:46)
[2023-10-13] MEDS ORDERED: ROCURONIUM 10 MG/ML (5 ML VIAL) IV ONE (19:46)
[2023-10-13] MEDS ORDERED: GLYCOPYRROLATE 0.2 MG/ML 2 ML VIAL ONE (19:46)
[2023-10-13] MEDS ORDERED: HEPARIN SODIUM,PORCINE 5,000 UNIT/ML 1 ML VIAL ONE (19:46)
[2023-10-13] MEDS: SODIUM CHLORIDE 0.9% 50 ML with ceFAZolin 2,000 MG IV ONE (20:06)
[2023-10-13] MEDS: LIDOCAINE 1%-EPI 1:100,000 50 ML VIAL SQ ONE (20:17)
[2023-10-13] MEDS: LACTATED RINGERS 1,000 ML IV ONE ×2 (20:25→20:56)
[2023-10-13] MEDS: SODIUM CHLORIDE 0.9% 500 ML 500 ML IV ONE (20:56)
[2023-10-13 21:10] LABS: HCT 37.1 % (39.0-53.0); HGB 12.6 gm/dL (13.0-17.5); MCH 29.6 pg (25.0-35.0); MCV 87.2 fL (80.0-100.0); Mean Platelet Volume 7.1; Platelet Count 170 k/uL (150-450); RBC 4.25 m/uL (4.30-5.90); RDW 12.5 % (11.5-15.5); WBC 10.9 k/uL (3.8-10.6)
[2023-10-13] MEDS ORDERED: ONDANSETRON 4 MG/2 ML VIAL IVP PRN (21:33)
[2023-10-13] MEDS ORDERED: METOCLOPRAMIDE 5 MG/ML 2 ML VIAL IVP PRN (21:33)
[2023-10-13] MEDS ORDERED: NALOXONE 0.4 MG/ML 1 ML VIAL IV PRN (21:33)
--- NOTE | 2023-10-13 21:33 | P.OP ---
Date of Procedure: 10/13/23 Preoperative Diagnosis: appendicitis Postoperative Diagnosis: Acute ruptured appendicitis with abscess Procedure(s) Performed: Diagnostic laparoscopy Open appendectomy Anesthesia: CHETAN Surgeon: Wan Thorne Estimated Blood Loss (ml): 600 Pathology: other (Appendix) Condition: stable Disposition: PACU Description of Procedure: Dejon the patient's placed on the operating table in the supine position. The patient received general anesthesia. The abdomen was prepped and draped in the usual sterile fashion. The skin was anesthetized 1% local Xylocaine at the trocar sites. Using an 11 blade the skin was incised at the umbilicus. The umbilicus was grasped with a Teena clamp and then a Veress needle was placed into the peritoneal cavity. Position of the Veress needle was confirmed with positive drop test. After adequate insufflation a 5 mm trocar was placed into the peritoneal cavity. The abdomen was further insufflated. And then the laparoscope was placed in the peritoneal cavity. Next a 5 mm trocar was placed in the midline suprapubic position. And then a 10 mm trocar was placed in the midline epigastric position. The patient was rotated with the right side up and in Trendelenburg. The right lower quadrant was visualized. The cecum was visualized. There were significant inflammatory change of the cecum. The base the appendix could be identified. The appendix appeared to be traveling in a retrocecal fashion. The appendix was very inflamed. The appendix traveled just just below the terminal ileum. The appendix was quite stuck. During the dissection of the appendix there was some bleeding encountered. Several attempts to control the bleeding with the harmonic scissors was made. However this was not possible. At this point the procedure was converted to an emergent open procedure. The trocars were withdrawn. Then using electrocautery the abdominal wall was divided. The right lower quadrant was then packed with surgi lap sponges. The Bookwalter retractor was then placed in the wound. The right lower quadrant examined. Several times and exposing the area of bleeding the bleeding was visualized and was quite brisk. After holding pressure for several minutes the sponges were removed slowly and there could be seen a 4 mm vein which was bleeding. The vein was then clipped with the 12 mm clip battery plate remover. During the control of the bleeding vein it was estimate approximately 5 to 600 cc of blood was lost. There was no other bleeding seen. This point the abdomen is irrigated. The appendix was then brought up with finger dissection into the wound. The tip of the appendix appeared to be gangrenous and perforated. The mesoappendix was divided with the robotic scissors. The base the appendix was then divided with a Endoloop. And then the appendix was divided with the robotic scissors. The specimen sent to pathology. The abdomen is then irrigated. There is no bleeding seen. A BRADLEY drain was placed in the right lower quadrant. The fascia was then closed with looped #1 PDS suture. Skin was closed vikash.
[2023-10-13] MEDS: MECLIZINE 25 MG TAB PO SCH (23:43)
[2023-10-13] MEDS: VIT A,C & E-LUTEIN-MINERALS 1 EACH TAB PO SCH (23:43)
[2023-10-14] MEDS: LACTATED RINGERS 1,000 ML IV ONE (00:25)
[2023-10-14 00:39] LABS: Glucose,Whole Blood 188 mg/dL (70-110)
[2023-10-14 01:09] LABS: Basophils % (A) 0 %; Eosinophils % (A) 0 %; HCT 37.7 % (39.0-53.0); HGB 12.7 gm/dL (13.0-17.5); Lymphocytes # (A) 0.4 k/uL (1.0-4.8); Lymphocytes % (A) 4 %; MCH 29.1 pg (25.0-35.0); MCHC 33.6 g/dL (31.0-37.0); MCV 86.7 fL (80.0-100.0); Mean Platelet Volume 7.1; Monocytes # (A) 0.4 k/uL (0-1.0); Monocytes % (A) 4 %; Neutrophils # (A) 9.3 k/uL (1.3-7.7); Neutrophils % (A) 91 %; Platelet Count 151 k/uL (150-450); RBC 4.35 m/uL (4.30-5.90); RDW 12.6 % (11.5-15.5); WBC 10.3 k/uL (3.8-10.6)
[2023-10-14 06:22] LABS: Glucose,Whole Blood 188 mg/dL (70-110)
[2023-10-14] MEDS: ACETAMINOPHEN IV (For NPO) 1,000 MG in EMPTY BAG 1 BAG IVPB PRN (10:34)
[2023-10-14 10:59] LABS: Basophils # (A) 0.01 X 10*3/uL (0.00-0.10); Basophils % (A) 0.1 %; Eosinophils # (A) 0 X 10*3/uL (0.04-0.35); Eosinophils % (A) 0 %; HCT 36.5 % (39.6-50.0); HGB 12.2 g/dL (13.0-17.0); Lymphocytes # (A) 0.49 X 10*3/uL (0.90-5.00); Lymphocytes % (A) 5.1 %; MCH 28.2 pg (27.0-32.0); MCHC 33.4 g/dL (32.0-37.0); MCV 84.3 FL (80.0-97.0); Mean Platelet Volume 9.2 FL (9.5-12.2); Monocytes # (A) 0.59 X 10*3/uL (0.20-1.00); Monocytes % (A) 6.1 %; NRBC Per 100 WBC 0 X 10*3/uL (0.00-0.01); Neutrophils # (A) 8.55 X 10*3/uL (1.80-7.70); Neutrophils % (A) 88.2 %; Platelet Count 169 X 10*3/uL (140-440); RBC 4.33 X 10*6/uL (4.40-5.60); RDW 12.6 % (11.5-14.5); WBC 9.69 X 10*3/uL (4.50-10.00)
[2023-10-14] MEDS: ENOXAPARIN 40 MG/0.4 ML SYRINGE SQ SCH (11:16)
[2023-10-14 11:21] LABS: BUN/Creat Ratio 14.92 Ratio (12.00-20.00); Blood Urea Nitrogen 17.9 mg/dL (9.0-27.0); Calcium 7.8 mg/dL (8.7-10.3); Carbon Dioxide 22.1 mmol/L (21.6-31.8); Chloride 104 mmol/L (96-109); Glucose 172 mg/dL (70-110); Sodium 138 mmol/L (135-145)
[2023-10-14 11:36] VITALS: BMI 29.8
[2023-10-14 12:09] LABS: Glucose,Whole Blood 151 mg/dL (70-110)
--- NOTE | 2023-10-14 12:44 | P.CONS ---
History of Present Illness - Reason for Consult Consult date: 10/14/23 Medical management Parkinsons,DM, HTN, Anxiety Requesting physician: Wan Thorne - Chief Complaint Abdominal pain - History of Present Illness This is a 68-year-old gentleman with past medical history significant for Parkinson's disease, gait dysfunction, dysarthria since jaw reconstruction-that progressed with Parkinson's disease over the last couple years, anxiety, diabetes mellitus, hypertension, sleep apnea-wears CPAP, constipation and multiple other medical issues , status post acute ruptured appendicitis with abscess status post diagnostic laparoscopy, open appendectomy. Tolerated procedure well. Tmax 100.9 axillary, blood cultures in progress, normal WBC. Function improving, creatinine down to 1.2, baseline 1.15. No flatus. Pain currently controlled. Denies chest pain, palpitations or shortness of breath. Oxygen has been weaned off and is currently maintaining O2 sats in the 90s on room air. Hemoglobin 12.2, platelets 169, chemistry unremarkable. Blood sugars better controlled. Hemoglobin A1c 5.6. Review of Systems ROS Statement: Those systems with pertinent positive or pertinent negative responses have been documented in the HPI. ROS Other: All systems not noted in ROS Statement are negative. Past Medical History Past Medical History: CVA/TIA, Diabetes Mellitus, Hypertension, Sleep Apnea/CPAP/BIPAP Additional Past Medical History / Comment(s): Parkinsons. diet controlled DM History of Any Multi-Drug Resistant Organisms: None Reported Past Surgical History: Hernia Repair Additional Past Surgical History / Comment(s): benign tumor removed lt lower jaw and artifical jaw inserted, cataract- bilat, sinus surgery, carpal tunnel surgery right wrist 1969' Past Anesthesia/Blood Transfusion Reactions: Motion Sickness Past Psychological History: Anxiety Smoking Status: Never smoker Past Alcohol Use History: None Reported Past Drug Use History: None Reported - Past Family History Father Family Medical History: Cancer, Diabetes Mellitus Mother Family Medical History: CVA/TIA Medications and Allergies Home Medications Medication Instructions Recorded Confirmed Type Aspirin EC [Ecotrin Low Dose] 81 mg PO DAILY 01/09/22 10/12/23 History Meclizine HCl 25 mg PO HS 01/09/22 10/12/23 History Vit C/E/Zn/Coppr/Lutein/Zeaxan 1 cap PO BID 01/09/22 10/12/23 History [Preservision Areds 2 Softgel] Clopidogrel [Plavix] 75 mg PO DAILY tab 06/08/23 10/12/23 Rx Carbidopa-Levodopa 25-100 mg 1 tab PO TID@0900,1400,1900 09/29/23 10/12/23 Hi story [Sinemet 25-100] amLODIPine BESYLATE/BENAZEPRIL 1 cap PO HS 09/29/23 10/12/23 History [Lotrel 5-20 mg Capsule] Escitalopram [Lexapro] 20 mg PO DAILY 10/12/23 10/12/23 History Allergies Allergy/AdvReac Type Severity Reaction Status Date / Time cephalexin Allergy Itching Verified 10/12/23 19:32 cockroach Allergy Unknown Verified 10/12/23 19:32 cyclobenzaprine Allergy Chest Pain Verified 10/12/23 19:32 morphine AdvReac Hallucinati Verified 10/12/23 19:32 ons Physical Exam Vitals: Vital Signs Temp Pulse Pulse Resp BP BP Pulse Ox 10/14/23 10:04 90 10/14/23 09:58 97 10/14/23 09:55 94 10/14/23 08:54 100.9 F H 94 22 148/87 97 10/14/23 01:50 96 125/90 97 10/14/23 01:35 95 156/83 96 10/14/23 01:20 94 143/79 94 L 10/14/23 01:05 97 128/92 95 10/14/23 00:50 97 150/83 94 L 10/14/23 00:35 89 164/81 94 L 10/14/23 00:20 98.9 F 94 16 146/84 97 10/13/23 23:59 98 16 144/90 98 10/13/23 23:20 98 F 96 16 137/70 97 10/13/23 23:10 98.3 F 97 16 139/76 10/13/23 22:44 97 18 149/71 96 10/13/23 22:29 95 16 150/72 96 10/13/23 22:14 97 16 144/76 94 L 10/13/23 21:44 95 18 161/73 95 10/13/23 21:29 97.9 F 95 18 169/72 95 10/13/23 19:05 100.0 F H 93 22 130/78 95 10/13/23 16:54 76 02/20/24 16:40 74 Intake and Output 10/13/23 10/14/23 10/14/23 22:59 06:59 14:59 Intake Total 2049 760 Output Total 1000 1400 Balance 1050 -640 Intake: IV 2049 450 Blood Product 310 Rc As-1 Unit 310 [id number] Output: Urine 300 1400 Estimated Blood Loss 700 Other: Voiding Method Urinal Indwelling Catheter Indwelling Catheter # Voids 1 # Bowel Movements 1 Weight 99.79 kg 99.79 kg 99.79 kg PHYSICAL EXAM: VITAL SIGNS: As above GENERAL: Pleasant 68-year-old gentleman sitting up in bed, conversing slowly, appropriately, NAD HEENT: Normocephalic, Conjunctivae normal. eyes normal. NECK: Supple, No JVD. No thyroid enlargement. No LNs CARDIOVASCULAR: S1, S2 regular.. No murmur RESPIRATION: Unlabored, equal air entry, Breath sounds diminished in the bases. No rhonchi or crackles. No bronchial breathing. ABDOMEN: Soft, tender, status post surgery. LEGS: No edema. no swelling PSYCHIATRY: Alert and oriented X3, mood and affect normal. NERVOUS SYSTEM: Cranial N 2-12 grossly normal. Moves all 4 limbs. No focal deficits. Strength and sensation grossly intact.. Skin: Warm and dry, no rash Results CBC & Chem 7: 10/14/23 06:38 10/14/23 06:38 Labs: Abnormal Lab Results - Last 24 Hours (Table) 10/13/23 10/13/23 10/13/23 Range/Units 15:13 20:35 20:35 WBC 10.9 H (3.8-10.6) k/uL RBC 4.25 L (4.30-5.90) m/uL Hgb 12.6 L (13.0-17.5) gm/dL Hct 37.1 L (39.0-53.0) % MPV (9.5-12.2) FL Immature Gran # (0.00-0.04) X 10*3/uL Neutrophils # (1.3-7.7) k/uL Lymphocytes # (1.0-4.8) k/uL Eosinophils # (0.04-0.35) X 10*3/uL PT 14.0 H (10.0-12.5) sec INR 1.3 H (<1.2) Glucose (70-110) mg/dL POC Glucose (mg/dL) (70-110) mg/dL Calcium (8.7-10.3) mg/dL Crossmatch See Detail 10/14/23 10/14/23 10/14/23 Range/Units 00:37 00:49 06:21 WBC (3.8-10.6) k/uL RBC (4.30-5.90) m/uL Hgb 12.7 L (13.0-17.5) gm/dL Hct 37.7 L (39.0-53.0) % MPV (9.5-12.2) FL Immature Gran # (0.00-0.04) X 10*3/uL Neutrophils # 9.3 H (1.3-7.7) k/uL Lymphocytes # 0.4 L (1.0-4.8) k/uL Eosinophils # (0.04-0.35) X 10*3/uL PT (10.0-12.5) sec INR (<1.2) Glucose (70-110) mg/dL POC Glucose (mg/dL) 188 H 188 H (70-110) mg/dL Calcium (8.7-10.3) mg/dL Crossmatch 10/14/23 10/14/23 Range/Units 06:38 06:38 WBC (3.8-10.6) k/uL RBC 4.33 L (4.30-5.90) m/uL Hgb 12.2 L (13.0-17.5) gm/dL Hct 36.5 L (39.0-53.0) % MPV 9.2 L (9.5-12.2) FL Immature Gran # 0.05 H (0.00-0.04) X 10*3/uL Neutrophils # 8.55 H (1.3-7.7) k/uL Lymphocytes # 0.49 L (1.0-4.8) k/uL Eosinophils # 0 L (0.04-0.35) X 10*3/uL PT (10.0-12.5) sec INR (<1.2) Glucose 172 H (70-110) mg/dL POC Glucose (mg/dL) (70-110) mg/dL Calcium 7.8 L (8.7-10.3) mg/dL Crossmatch Microbiology - Last 24 Hours (Table) 10/12/23 22:47 Blood Culture - Preliminary Blood 10/12/23 23:02 Blood Culture - Preliminary Blood Assessment and Plan Assessment: Acute ruptured appendicitis with abscess status post diagnostic laparoscopy, open appendectomy. 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 Aggressive pulmonary toileting with incentive spirometer, nebulized bronchodilators ordered. Home meds evaluated and resumed accordingly including Parkinson's regimen. Blood cultures in progress. IV fluid hydration, antibiotics of Zosyn. Pain management and DVT prophylaxis as per general surgery. PT/OT on consult. The impression and plan of care has been dictated as directed. : I performed a history and examination of this patient, discussed the same with the dictator. I agree with the dictator's note ,documented as a scribe. Any additional findings or plans will be noted.
--- NOTE | 2023-10-14 14:57 | P.PN ---
Subjective Progress Note Date: 10/14/23 CHIEF COMPLAINT: Ruptured appendicitis with abscess HISTORY OF PRESENT ILLNESS: Patient postop day #1 status post diagnostic laparoscopy with open appendectomy. Pain is controlled. No flatus. Denies any nausea or vomiting. Did have a low-grade temp this morning of 100.9. WBC is 9.69. Patient had difficulty with swallowing the Tylenol pill for his low-grade fever this morning. PHYSICAL EXAM: VITAL SIGNS: Reviewed. GENERAL: Well-developed in no acute distress. HEENT: No sclera icterus. Extraocular movements grossly intact. Moist buccal mucosa. Head is atraumatic, normocephalic. ABDOMEN: Soft. Tender at incision site. Incisional dressing with small area of blood saturation. BRADLEY drain serosanguineous NEUROLOGIC: Awake. Mildly confused. ASSESSMENT: 1. Acute ruptured appendicitis with abscess 2. Atelectasis 3. History of Parkinson's PLAN: -IV Tylenol ordered for low-grade fever -Continue antibiotics -Keep patient n.p.o. -Continue nebulizer treatments -Consult PT OT -Will monitor patient's swallow. If not improving consult speech therapy Physician Sizing Sprayer note has been reviewed by physician. Signing provider agrees with the documented findings, assessment, and plan of care. Objective - Vital Signs Vital signs: Vital Signs Temp 99.1 F 10/14/23 11:45 Pulse 90 10/14/23 13:04 Resp 20 10/14/23 11:45 BP 122/74 10/14/23 11:45 Pulse Ox 98 10/14/23 11:45 FiO2 Intake & Output 10/13/23 10/14/23 10/14/23 18:59 06:59 18:59 Intake Total 2810 Output Total 1250 2100 Balance -1250 710 Weight 99.79 kg 99.79 kg Intake: IV 2500 Blood Product 310 Rc As-1 Unit 310 [id number] Output: Urine 1250 1400 Estimated Blood Loss 700 Other: Voiding Method Urinal Indwelling Catheter Indwelling Catheter # Voids 1 # Bowel Movements 1 - Labs CBC & Chem 7: 10/14/23 06:38 10/14/23 06:38 Labs: Abnormal Lab Results - Last 24 Hours (Table) 10/13/23 10/13/23 10/13/23 Range/Units 15:13 20:35 20:35 WBC 10.9 H (3.8-10.6) k/uL RBC 4.25 L (4.30-5.90) m/uL Hgb 12.6 L (13.0-17.5) gm/dL Hct 37.1 L (39.0-53.0) % MPV (9.5-12.2) FL Immature Gran # (0.00-0.04) X 10*3/uL Neutrophils # (1.3-7.7) k/uL Lymphocytes # (1.0-4.8) k/uL Eosinophils # (0.04-0.35) X 10*3/uL PT 14.0 H (10.0-12.5) sec INR 1.3 H (<1.2) Glucose (70-110) mg/dL POC Glucose (mg/dL) (70-110) mg/dL Calcium (8.7-10.3) mg/dL Crossmatch See Detail 10/14/23 10/14/23 10/14/23 Range/Units 00:37 00:49 06:21 WBC (3.8-10.6) k/uL RBC (4.30-5.90) m/uL Hgb 12.7 L (13.0-17.5) gm/dL Hct 37.7 L (39.0-53.0) % MPV (9.5-12.2) FL Immature Gran # (0.00-0.04) X 10*3/uL Neutrophils # 9.3 H (1.3-7.7) k/uL Lymphocytes # 0.4 L (1.0-4.8) k/uL Eosinophils # (0.04-0.35) X 10*3/uL PT (10.0-12.5) sec INR (<1.2) Glucose (70-110) mg/dL POC Glucose (mg/dL) 188 H 188 H (70-110) mg/dL Calcium (8.7-10.3) mg/dL Crossmatch 10/14/23 10/14/23 10/14/23 Range/Units 06:38 06:38 11:50 WBC (3.8-10.6) k/uL RBC 4.33 L (4.30-5.90) m/uL Hgb 12.2 L (13.0-17.5) gm/dL Hct 36.5 L (39.0-53.0) % MPV 9.2 L (9.5-12.2) FL Immature Gran # 0.05 H (0.00-0.04) X 10*3/uL Neutrophils # 8.55 H (1.3-7.7) k/uL Lymphocytes # 0.49 L (1.0-4.8) k/uL Eosinophils # 0 L (0.04-0.35) X 10*3/uL PT (10.0-12.5) sec INR (<1.2) Glucose 172 H (70-110) mg/dL POC Glucose (mg/dL) 151 H (70-110) mg/dL Calcium 7.8 L (8.7-10.3) mg/dL Crossmatch Microbiology - Last 24 Hours (Table) 10/12/23 22:47 Blood Culture - Preliminary Blood 10/12/23 23:02 Blood Culture - Preliminary Blood
[2023-10-14 17:39] LABS: Glucose,Whole Blood 157 mg/dL (70-110)
[2023-10-14 20:16] LABS: Glucose,Whole Blood 171 mg/dL (70-110)
[2023-10-14 23:51] LABS: Glucose,Whole Blood 167 mg/dL (70-110)
[2023-10-15 06:33] LABS: Glucose,Whole Blood 138 mg/dL (70-110)
[2023-10-15 10:46] LABS: Basophils # (A) 0.04 X 10*3/uL (0.00-0.10); Basophils % (A) 0.3 %; Eosinophils # (A) 0.01 X 10*3/uL (0.04-0.35); Eosinophils % (A) 0.1 %; HCT 34.1 % (39.6-50.0); HGB 11.4 g/dL (13.0-17.0); Lymphocytes # (A) 0.88 X 10*3/uL (0.90-5.00); Lymphocytes % (A) 7.2 %; MCHC 33.4 g/dL (32.0-37.0); MCV 86.8 FL (80.0-97.0); Mean Platelet Volume 9.4 FL (9.5-12.2); Monocytes # (A) 0.89 X 10*3/uL (0.20-1.00); Monocytes % (A) 7.3 %; NRBC Per 100 WBC 0 X 10*3/uL (0.00-0.01); Neutrophils # (A) 10.31 X 10*3/uL (1.80-7.70); Neutrophils % (A) 84.6 %; Platelet Count 174 X 10*3/uL (140-440); RBC 3.93 X 10*6/uL (4.40-5.60); RDW 12.6 % (11.5-14.5); WBC 12.19 X 10*3/uL (4.50-10.00)
[2023-10-15 12:06] LABS: Glucose,Whole Blood 115 mg/dL (70-110)
--- NOTE | 2023-10-15 13:53 | P.PN ---
Subjective Progress Note Date: 10/15/23 CHIEF COMPLAINT: Ruptured appendicitis with abscess HISTORY OF PRESENT ILLNESS: Patient postop day #2 status post diagnostic laparoscopy with open appendectomy. Pain is controlled. No flatus. Denies any nausea or vomiting. Did have a low-grade temp this afternoon of 100.3. WBC up from 9.69-12.19 Hgb 11.4. Patient able to swallow pills today. BRADLEY drain output dark 280 mL PHYSICAL EXAM: VITAL SIGNS: Reviewed. GENERAL: Well-developed in no acute distress. HEENT: No sclera icterus. Extraocular movements grossly intact. Moist buccal mucosa. Head is atraumatic, normocephalic. ABDOMEN: Soft. Tender at incision site. Incisional dressing with small area of blood saturation. BRADLEY drain output is dark NEUROLOGIC: Awake. less confused. ASSESSMENT: 1. Acute ruptured appendicitis with abscess 2. Atelectasis 3. History of Parkinson's PLAN: -Resume IV Tylenol scheduled for pain -Continue antibiotics -Keep patient n.p.o. -Continue nebulizer treatments -Consult PT OT -Encourage patient to increase activity level. Encouraged patient to use incentive spirometer -Repeat CBC in a.m. -DVT prophylaxis Lovenox Physician Instructor Programmable [employer]roll[employer] note has been reviewed by physician. Signing provider agrees with the documented findings, assessment, and plan of care. Objective - Vital Signs Vital signs: Vital Signs Temp 100.3 F H 10/15/23 13:44 Pulse 83 10/15/23 12:06 Resp 20 10/15/23 11:56 BP 119/76 10/15/23 11:56 Pulse Ox 97 10/15/23 11:56 FiO2 Intake & Output 10/14/23 10/15/23 10/15/23 18:59 06:59 18:59 Output Total 710 600 280 Balance -710 -600 -280 Weight 99.79 kg Output: Drainage 60 280 Right Lower Abdomen 60 280 Urine 650 600 Other: Voiding Method Indwelling Catheter Indwelling Catheter - Labs CBC & Chem 7: 10/15/23 06:06 10/14/23 06:38 Labs: Abnormal Lab Results - Last 24 Hours (Table) 10/14/23 10/14/23 10/14/23 Range/Units 17:36 20:14 23:50 WBC (4.50-10.00) X 10*3/uL RBC (4.40-5.60) X 10*6/uL Hgb (13.0-17.0) g/dL Hct (39.6-50.0) % MPV (9.5-12.2) FL Immature Gran # (0.00-0.04) X 10*3/uL Neutrophils # (1.80-7.70) X 10*3/uL Lymphocytes # (0.90-5.00) X 10*3/uL Eosinophils # (0.04-0.35) X 10*3/uL POC Glucose (mg/dL) 157 H 171 H 167 H (70-110) mg/dL 10/15/23 10/15/23 10/15/23 Range/Units 06:06 06:32 12:01 WBC 12.19 H (4.50-10.00) X 10*3/uL RBC 3.93 L (4.40-5.60) X 10*6/uL Hgb 11.4 L (13.0-17.0) g/dL Hct 34.1 L (39.6-50.0) % MPV 9.4 L (9.5-12.2) FL Immature Gran # 0.06 H (0.00-0.04) X 10*3/uL Neutrophils # 10.31 H (1.80-7.70) X 10*3/uL Lymphocytes # 0.88 L (0.90-5.00) X 10*3/uL Eosinophils # 0.01 L (0.04-0.35) X 10*3/uL POC Glucose (mg/dL) 138 H 115 H (70-110) mg/dL Microbiology - Last 24 Hours (Table) 10/12/23 22:47 Blood Culture - Preliminary Blood 10/12/23 23:02 Blood Culture - Preliminary Blood
[2023-10-15 14:13] LABS: Basophils % (A) 0 %; Eosinophils % (A) 0 %; HCT 33.4 % (39.0-53.0); HGB 11.6 gm/dL (13.0-17.5); Lymphocytes % (A) 9 %; MCH 29.9 pg (25.0-35.0); MCHC 34.6 g/dL (31.0-37.0); MCV 86.3 fL (80.0-100.0); Mean Platelet Volume 7.2; Monocytes # (A) 0.6 k/uL (0-1.0); Monocytes % (A) 6 %; Neutrophils # (A) 9.4 k/uL (1.3-7.7); Neutrophils % (A) 84 %; Platelet Count 190 k/uL (150-450); RBC 3.87 m/uL (4.30-5.90); RDW 12.6 % (11.5-15.5); WBC 11.2 k/uL (3.8-10.6)
[2023-10-15] MEDS: ACETAMINOPHEN IV (For NPO) 1,000 MG in EMPTY BAG 1 BAG IVPB SCH (14:15)
[2023-10-15 17:14] LABS: Glucose,Whole Blood 136 mg/dL (70-110)
[2023-10-15 20:18] LABS: Glucose,Whole Blood 105 mg/dL (70-110)
--- NOTE | 2023-10-15 23:40 | P.PN ---
Subjective Progress Note Date: 10/15/23 - Reason for Consult Consult date: 10/14/23 Medical management Parkinsons,DM, HTN, Anxiety Requesting physician: Wan Thorne - Chief Complaint Abdominal pain - History of Present Illness This is a 68-year-old gentleman with past medical history significant for Parkinson's disease, gait dysfunction, dysarthria since jaw reconstruction-that progressed with Parkinson's disease over the last couple years, anxiety, diabetes mellitus, hypertension, sleep apnea-wears CPAP, constipation and multiple other medical issues , status post acute ruptured appendicitis with abscess status post diagnostic laparoscopy, open appendectomy. Tolerated procedure well. Tmax 100.9 axillary, blood cultures in progress, normal WBC. Function improving, creatinine down to 1.2, baseline 1.15. No flatus. Pain currently controlled. Denies chest pain, palpitations or shortness of breath. Oxygen has been weaned off and is currently maintaining O2 sats in the 90s on room air. Hemoglobin 12.2, platelets 169, chemistry unremarkable. Blood sugars better controlled. Hemoglobin A1c 5.6. 10/15/2023 Patient is seen and evaluated in follow-up this morning currently remains n.p.o. per general surgery. Patient did have a low-grade temp this morning and is maintained on antibiotics and will continue. White count mildly elevated. Patient continues with BRADLEY drain with dark output noted and is tender in the abdomen. No bowel sounds noted on exam. Awaiting speech evaluation as patient apparently had difficulty with swallowing pills yesterday. Nursing staff reports he swallowed his pills today. Recommend aspiration precautions with head of the bed elevated 45 degrees at all times. Review of systems: Constitutional: No reports of fatigue, fever, or chills Cardiovascular: No reports of chest pain or palpitations Respiratory: No reports of shortness of breath or cough GI: No reports of nausea, vomiting, or diarrhea : No reports of dysuria or retention Neurovascular: reports of generalized weakness All medications have been reviewed PHYSICAL EXAM: GENERAL: Pleasant 68-year-old gentleman sitting up in bed, conversing slowly, appropriately, NAD HEENT: Normocephalic, Conjunctivae normal. eyes normal. NECK: Supple, No JVD. No thyroid enlargement. No LNs CARDIOVASCULAR: S1, S2 regular.. No murmur RESPIRATION: Unlabored, equal air entry, Breath sounds diminished in the bases. No rhonchi or crackles. No bronchial breathing. ABDOMEN: Soft, tender, status post surgery with BRADLEY drain noted to have dark output. Absent bowel sounds noted. LEGS: No edema. no swelling PSYCHIATRY: Alert and oriented X2-3, mood and affect normal. NERVOUS SYSTEM: Cranial N 2-12 grossly normal. Moves all 4 limbs. No focal deficits. Strength and sensation grossly intact.. Diffusely weak Skin: Warm and dry, no rash Assessment: Acute ruptured appendicitis with abscess status post diagnostic laparoscopy, open appendectomy. 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 Patient did have a fever low-grade last night and is continued n.p.o. Absent bowel sounds noted and awaiting further bowel activity. Awaiting speech evaluation as patient was having difficulty yesterday swallowing pills. Nursing staff reports he was able to swallow his pills today Recommend aspiration precautions with head of the bed elevated 45 degrees at all times Recommend PT/OT therapy evaluation as patient would benefit from ECF Will follow-up on repeat labs We will continue to follow with general surgery during hospitalization. Thank you kindly for this consultation Overall prognosis is guarded The impression and plan of care has been dictated by Ynes Mendoza, Nurse Practitioner as directed. Dr. Moris MD I have performed a history and examination and MDM of this patient, discussed the same with the dictator, and agree with the dictator's assessment and plan as written ,documented as a scribe. Based on total visit time, I have performed more than 50% of the visit. Objective - Vital Signs Vital signs: Vital Signs Temp 98.7 F 10/15/23 07:41 Pulse 84 10/15/23 07:48 Resp 20 10/15/23 07:41 BP 135/72 10/15/23 07:41 Pulse Ox 90 L 10/15/23 07:41 FiO2 Intake & Output 10/14/23 10/15/23 10/15/23 18:59 06:59 18:59 Output Total 710 600 280 Balance -710 -600 -280 Weight 99.79 kg Output: Drainage 60 280 Right Lower Abdomen 60 280 Urine 650 600 Other: Voiding Method Indwelling Catheter Indwelling Catheter - Labs CBC & Chem 7: 10/15/23 14:00 10/14/23 06:38 Labs: Abnormal Lab Results - Last 24 Hours (Table) 10/14/23 10/14/23 10/14/23 Range/Units 06:38 06:38 11:50 RBC 4.33 L (4.40-5.60) X 10*6/uL Hgb 12.2 L (13.0-17.0) g/dL Hct 36.5 L (39.6-50.0) % MPV 9.2 L (9.5-12.2) FL Immature Gran # 0.05 H (0.00-0.04) X 10*3/uL Neutrophils # 8.55 H (1.80-7.70) X 10*3/uL Lymphocytes # 0.49 L (0.90-5.00) X 10*3/uL Eosinophils # 0 L (0.04-0.35) X 10*3/uL Glucose 172 H (70-110) mg/dL POC Glucose (mg/dL) 151 H (70-110) mg/dL Calcium 7.8 L (8.7-10.3) mg/dL 10/14/23 10/14/23 10/14/23 Range/Units 17:36 20:14 23:50 RBC (4.40-5.60) X 10*6/uL Hgb (13.0-17.0) g/dL Hct (39.6-50.0) % MPV (9.5-12.2) FL Immature Gran # (0.00-0.04) X 10*3/uL Neutrophils # (1.80-7.70) X 10*3/uL Lymphocytes # (0.90-5.00) X 10*3/uL Eosinophils # (0.04-0.35) X 10*3/uL Glucose (70-110) mg/dL POC Glucose (mg/dL) 157 H 171 H 167 H (70-110) mg/dL Calcium (8.7-10.3) mg/dL 10/15/23 Range/Units 06:32 RBC (4.40-5.60) X 10*6/uL Hgb (13.0-17.0) g/dL Hct (39.6-50.0) % MPV (9.5-12.2) FL Immature Gran # (0.00-0.04) X 10*3/uL Neutrophils # (1.80-7.70) X 10*3/uL Lymphocytes # (0.90-5.00) X 10*3/uL Eosinophils # (0.04-0.35) X 10*3/uL Glucose (70-110) mg/dL POC Glucose (mg/dL) 138 H (70-110) mg/dL Calcium (8.7-10.3) mg/dL Microbiology - Last 24 Hours (Table) 10/12/23 22:47 Blood Culture - Preliminary Blood 10/12/23 23:02 Blood Culture - Preliminary Blood
[2023-10-16 00:50] LABS: Glucose,Whole Blood 100 mg/dL (70-110)
[2023-10-16 06:20] LABS: Glucose,Whole Blood 88 mg/dL (70-110)
[2023-10-16] MEDS: ACETAMINOPHEN IV (For NPO) 1,000 MG in EMPTY BAG 1 BAG IVPB SCH ×2 (09:30→13:52)
[2023-10-16 10:47] LABS: Basophils # (A) 0.07 X 10*3/uL (0.00-0.10); Basophils % (A) 0.7 %; Eosinophils # (A) 0.22 X 10*3/uL (0.04-0.35); Eosinophils % (A) 2.1 %; HCT 34.5 % (39.6-50.0); HGB 11.5 g/dL (13.0-17.0); Lymphocytes # (A) 1.35 X 10*3/uL (0.90-5.00); MCH 29.4 pg (27.0-32.0); MCHC 33.3 g/dL (32.0-37.0); MCV 88.2 FL (80.0-97.0); Mean Platelet Volume 9.1 FL (9.5-12.2); Monocytes # (A) 0.69 X 10*3/uL (0.20-1.00); Monocytes % (A) 6.7 %; NRBC Per 100 WBC 0 X 10*3/uL (0.00-0.01); Neutrophils # (A) 7.96 X 10*3/uL (1.80-7.70); Neutrophils % (A) 76.9 %; Platelet Count 202 X 10*3/uL (140-440); RBC 3.91 X 10*6/uL (4.40-5.60); RDW 12.8 % (11.5-14.5); WBC 10.35 X 10*3/uL (4.50-10.00)
[2023-10-16 11:19] LABS: Blood Urea Nitrogen 23.9 mg/dL (9.0-27.0); Calcium 7.8 mg/dL (8.7-10.3); Carbon Dioxide 25.5 mmol/L (21.6-31.8); Chloride 111 mmol/L (96-109); Glucose 89 mg/dL (70-110); Magnesium 2.1 mg/dL (1.5-2.4); Potassium 3.5 mmol/L (3.5-5.5); Sodium 146 mmol/L (135-145)
[2023-10-16 12:00] LABS: Glucose,Whole Blood 86 mg/dL (70-110)
--- NOTE | 2023-10-16 13:35 | P.PN ---
Subjective Progress Note Date: 10/16/23 CHIEF COMPLAINT: Ruptured appendicitis with abscess HISTORY OF PRESENT ILLNESS: Patient postop day #3 status post diagnostic laparoscopy with open appendectomy. Pain is controlled. No flatus. Denies any nausea or vomiting. Afebrile. WBC 11.2 to 10.35 Hgb 11.5 BRADLEY drain 35 mL output. Urine output is dark. PHYSICAL EXAM: VITAL SIGNS: Reviewed. GENERAL: Well-developed in no acute distress. HEENT: No sclera icterus. Extraocular movements grossly intact. Moist buccal mucosa. Head is atraumatic, normocephalic. ABDOMEN: Soft. Tender at incision site. Incisional dressing with small area of blood saturation. BRADLEY drain output bilous in color NEUROLOGIC: Awake. less confused. ASSESSMENT: 1. Acute ruptured appendicitis with abscess 2. Atelectasis 3. History of Parkinson's PLAN: -Resume IV Tylenol scheduled for pain -Continue antibiotics -Keep patient n.p.o. -Continue nebulizer treatments -Consult PT OT -Encourage patient to increase activity level. Encouraged patient to use fátima ntive spirometer -Repeat CBC in a.m. -Increase IV fluids to 100ml/hr. Medicine did adjust fluids for hypernatremia -DVT prophylaxis Lovenox Physician Orthopedic Surgeon note has been reviewed by physician. Signing provider agrees with the documented findings, assessment, and plan of care. Objective - Vital Signs Vital signs: Vital Signs Temp 99 F 10/16/23 12:27 Pulse 83 10/16/23 12:27 Resp 16 10/16/23 12:27 BP 112/78 10/16/23 12:27 Pulse Ox 97 10/16/23 12:27 FiO2 Intake & Output 10/15/23 10/16/23 10/16/23 18:59 06:59 18:59 Intake Total 0 Output Total 750 465 Balance -750 -465 Weight 99.79 kg Intake: Oral 0 Output: Drainage 400 65 Right Lower Abdomen 400 65 Urine 350 400 Other: Voiding Method Indwelling Catheter Indwelling Catheter Indwelling Catheter # Voids 0 # Bowel Movements 0 - Labs CBC & Chem 7: 10/16/23 08:21 10/16/23 08:21 Labs: Abnormal Lab Results - Last 24 Hours (Table) 10/15/23 10/15/23 10/16/23 Range/Units 14:00 17:10 08:21 WBC 11.2 H (3.8-10.6) k/uL RBC 3.87 L (4.30-5.90) m/uL Hgb 11.6 L (13.0-17.5) gm/dL Hct 33.4 L (39.0-53.0) % MPV (9.5-12.2) FL Immature Gran # (0.00-0.04) X 10*3/uL Neutrophils # 9.4 H (1.3-7.7) k/uL Sodium 146 H (135-145) mmol/L Chloride 111 H (96-109) mmol/L BUN/Creatinine Ratio 23.90 H (12.00-20.00) Ratio POC Glucose (mg/dL) 136 H (70-110) mg/dL Calcium 7.8 L (8.7-10.3) mg/dL 10/16/23 Range/Units 08:21 WBC 10.35 H (3.8-10.6) k/uL RBC 3.91 L (4.30-5.90) m/uL Hgb 11.5 L (13.0-17.5) gm/dL Hct 34.5 L (39.0-53.0) % MPV 9.1 L (9.5-12.2) FL Immature Gran # 0.06 H (0.00-0.04) X 10*3/uL Neutrophils # 7.96 H (1.3-7.7) k/uL Sodium (135-145) mmol/L Chloride (96-109) mmol/L BUN/Creatinine Ratio (12.00-20.00) Ratio POC Glucose (mg/dL) (70-110) mg/dL Calcium (8.7-10.3) mg/dL Microbiology - Last 24 Hours (Table) 10/12/23 22:47 Blood Culture - Preliminary Blood 10/12/23 23:02 Blood Culture - Preliminary Blood
[2023-10-16] MEDS: DEXTROSE 5%-0.45% NACL 1,000 ML IV SCH (13:52)
[2023-10-16] MEDS: POLYMYXIN B-TRIMETHOPRIM SULF (10,000-1) OPHTH DROPS 10 ML BTL BOTH EYES SCH (16:13)
--- NOTE | 2023-10-16 16:46 | P.PN ---
Subjective Progress Note Date: 10/16/23 - Reason for Consult Consult date: 10/14/23 Medical management Parkinsons,DM, HTN, Anxiety Requesting physician: Wan Thorne - Chief Complaint Abdominal pain - History of Present Illness This is a 68-year-old gentleman with past medical history significant for Parkinson's disease, gait dysfunction, dysarthria since jaw reconstruction-that progressed with Parkinson's disease over the last couple years, anxiety, diabetes mellitus, hypertension, sleep apnea-wears CPAP, constipation and multiple other medical issues , status post acute ruptured appendicitis with abscess status post diagnostic laparoscopy, open appendectomy. Tolerated procedure well. Tmax 100.9 axillary, blood cultures in progress, normal WBC. Function improving, creatinine down to 1.2, baseline 1.15. No flatus. Pain currently controlled. Denies chest pain, palpitations or shortness of breath. Oxygen has been weaned off and is currently maintaining O2 sats in the 90s on room air. Hemoglobin 12.2, platelets 169, chemistry unremarkable. Blood sugars better controlled. Hemoglobin A1c 5.6. 10/15/2023 Patient is seen and evaluated in follow-up this morning currently remains n.p.o. per general surgery. Patient did have a low-grade temp this morning and is maintained on antibiotics and will continue. White count mildly elevated. Patient continues with BRADLEY drain with dark output noted and is tender in the abdomen. No bowel sounds noted on exam. Awaiting speech evaluation as patient apparently had difficulty with swallowing pills yesterday. Nursing staff reports he swallowed his pills today. Recommend aspiration precautions with head of the bed elevated 45 degrees at all times. 10/16/2023 Patient is seen and evaluated in follow-up today much more awake and alert today reporting he is feeling thirsty and is maintained on IV hydration in the form of normal saline. Labs reviewed and sodium noted to be slightly elevated at 146 and will transition to D5 and half normal saline and follow-up with repeat labs. Patient continues on n.p.o. diet although is being transition to clear liquids per surgery recommendations. Patient continues on IV Zosyn and blood cultures remain negative thus far. Patient having some drainage and crusting of the eyes and has been itching them with concerns of conjunctivitis and will add Polytrim. Recommend repeat labs and PT/OT therapy evaluation as patient is significantly weak and would benefit from rehab. Review of systems: Constitutional: No reports of fatigue, fever, or chills, reports of itchy eyes and watering with some drainage and crusting noted Cardiovascular: No reports of chest pain or palpitations Respiratory: No reports of shortness of breath or cough GI: No reports of nausea, vomiting, or diarrhea, reports to feeling thirsty : No reports of dysuria or retention Neurovascular: reports of generalized weakness All medications have been reviewed PHYSICAL EXAM: GENERAL: Pleasant 68-year-old gentleman sitting up in bed, conversing slowly, appropriately, well-developed, elderly appearing HEENT: Normocephalic, Conjunctivae normal. eyes normal. NECK: Supple, No JVD. No thyroid enlargement. No LNs CARDIOVASCULAR: S1, S2 regular.. No murmur RESPIRATION: Unlabored, equal air entry, Breath sounds diminished in the bases. No rhonchi or crackles. No bronchial breathing. ABDOMEN: Soft, mildly tender, status post surgery with BRADLEY drain noted to have dark output. Sluggish bowel sounds noted. LEGS: No edema. no swelling PSYCHIATRY: Alert and oriented X2-3, mood and affect normal. NERVOUS SYSTEM: Cranial N 2-12 grossly normal. Moves all 4 limbs. No focal deficits. Strength and sensation grossly intact.. Diffusely weak Skin: Warm and dry, no rash Assessment: Acute ruptured appendicitis with abscess status post diagnostic laparoscopy, open appendectomy. Parkinson's disease history Hypernatremia, likely secondary to poor solute intake and n.p.o. 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 Being started on clear liquids this evening. Recommend aspiration precautions and supervision along with head of the bed elevated 30 to 45 degrees at all times Patient was able to take medications today and mentation and alertness is improved today Will initiate Polytrim eyedrops as there is concerns of conjunctivitis as patient has itching and draining with crustiness especially on the left side Recommend PT/OT therapy evaluation as patient would benefit from ECF Will follow-up on repeat labs Transition fluids to D5 half-normal saline and follow-up on repeat labs as sodium was 146 today. Replace electrolytes per protocol. Potassium was 3.5 and magnesium 2.1 today. Continue monitoring Accu-Cheks before meals and at bedtime and use sliding scale as needed We will continue to follow with general surgery during hospitalization. Thank you kindly for this consultation Overall prognosis is guarded The impression and plan of care has been dictated by Ynes Mendoza, Nurse Practitioner as directed. Dr. Moris MD I have performed a history and examination and MDM of this patient, discussed the same with the dictator, and agree with the dictator's assessment and plan as written ,documented as a scribe. Based on total visit time, I have performed more than 50% of the visit. Objective - Vital Signs Vital signs: Vital Signs Temp 98.6 F 10/16/23 07:11 Pulse 72 10/16/23 08:07 Resp 16 10/16/23 07:11 BP 136/81 10/16/23 07:11 Pulse Ox 98 10/16/23 07:11 FiO2 Intake & Output 10/15/23 10/16/23 10/16/23 18:59 06:59 18:59 Intake Total 0 Output Total 750 465 Balance -750 -465 Intake: Oral 0 Output: Drainage 400 65 Right Lower Abdomen 400 65 Urine 350 400 Other: Voiding Method Indwelling Catheter Indwelling Catheter # Voids 0 # Bowel Movements 0 - Labs CBC & Chem 7: 10/16/23 08:21 10/16/23 08:21 Labs: Abnormal Lab Results - Last 24 Hours (Table) 10/15/23 10/15/23 10/15/23 Range/Units 06:06 12:01 14:00 WBC 12.19 H 11.2 H (4.50-10.00) X 10*3/uL RBC 3.93 L 3.87 L (4.40-5.60) X 10*6/uL Hgb 11.4 L 11.6 L (13.0-17.0) g/dL Hct 34.1 L 33.4 L (39.6-50.0) % MPV 9.4 L (9.5-12.2) FL Immature Gran # 0.06 H (0.00-0.04) X 10*3/uL Neutrophils # 10.31 H 9.4 H (1.80-7.70) X 10*3/uL Lymphocytes # 0.88 L (0.90-5.00) X 10*3/uL Eosinophils # 0.01 L (0.04-0.35) X 10*3/uL POC Glucose (mg/dL) 115 H (70-110) mg/dL 10/15/23 Range/Units 17:10 WBC (4.50-10.00) X 10*3/uL RBC (4.40-5.60) X 10*6/uL Hgb (13.0-17.0) g/dL Hct (39.6-50.0) % MPV (9.5-12.2) FL Immature Gran # (0.00-0.04) X 10*3/uL Neutrophils # (1.80-7.70) X 10*3/uL Lymphocytes # (0.90-5.00) X 10*3/uL Eosinophils # (0.04-0.35) X 10*3/uL POC Glucose (mg/dL) 136 H (70-110) mg/dL Microbiology - Last 24 Hours (Table) 10/12/23 22:47 Blood Culture - Preliminary Blood 10/12/23 23:02 Blood Culture - Preliminary Blood
[2023-10-16 18:07] LABS: Glucose,Whole Blood 127 mg/dL (70-110)
[2023-10-17 00:12] LABS: Glucose,Whole Blood 130 mg/dL (70-110)
[2023-10-17 06:35] LABS: Glucose,Whole Blood 128 mg/dL (70-110)
[2023-10-17 09:05] LABS: ALT 14 U/L (4-49); AST 38 U/L (17-59); African American GFR (CKD) >90 (>60 ml/min/1.73 sqM); Albumin 2.3 g/dL (3.5-5.0); Alkaline Phosphatase 65 U/L (38-126); Anion Gap 3 mmol/L; Blood Urea Nitrogen 18 mg/dL (9-20); Calcium 7.6 mg/dL (8.4-10.2); Carbon Dioxide 26 mmol/L (22-30); Chloride 110 mmol/L (98-107); Globulin 2.4 g/dL; Glucose 133 mg/dL (74-99); Non-African American GFR(CKD) >90 (>60 ml/min/1.73 sqM); Potassium 3.2 mmol/L (3.5-5.1); Sodium 139 mmol/L (137-145); Total Bilirubin 0.7 mg/dL (0.2-1.3); Total Protein 4.7 g/dL (6.3-8.2)
[2023-10-17 10:00] LABS: Basophils # (A) 0.06 X 10*3/uL (0.00-0.10); Basophils % (A) 0.7 %; Eosinophils # (A) 0.25 X 10*3/uL (0.04-0.35); Eosinophils % (A) 2.8 %; HCT 32.2 % (39.6-50.0); HGB 10.9 g/dL (13.0-17.0); Lymphocytes # (A) 1.08 X 10*3/uL (0.90-5.00); Lymphocytes % (A) 11.9 %; MCH 29.2 pg (27.0-32.0); MCHC 33.9 g/dL (32.0-37.0); MCV 86.3 FL (80.0-97.0); Mean Platelet Volume 8.8 FL (9.5-12.2); Monocytes # (A) 0.56 X 10*3/uL (0.20-1.00); Monocytes % (A) 6.2 %; NRBC Per 100 WBC 0 X 10*3/uL (0.00-0.01); Neutrophils # (A) 7.07 X 10*3/uL (1.80-7.70); Neutrophils % (A) 77.7 %; Platelet Count 216 X 10*3/uL (140-440); RBC 3.73 X 10*6/uL (4.40-5.60); RDW 12.6 % (11.5-14.5); WBC 9.08 X 10*3/uL (4.50-10.00)
[2023-10-17 12:15] LABS: Glucose,Whole Blood 140 mg/dL (70-110)
[2023-10-17] MEDS: POTASSIUM CHLORIDE ER 20 MEQ TAB.ER PO SCH (12:35)
--- NOTE | 2023-10-17 14:00 | P.PN ---
Subjective Progress Note Date: 10/17/23 This is a 68-year-old gentleman with past medical history significant for Parkinson's disease, gait dysfunction, dysarthria since jaw reconstruction-that progressed with Parkinson's disease over the last couple years, anxiety, diabetes mellitus, hypertension, sleep apnea-wears CPAP, constipation and multi ple other medical issues , status post acute ruptured appendicitis with abscess status post diagnostic laparoscopy, open appendectomy. Tolerated procedure well. Tmax 100.9 axillary, blood cultures in progress, normal WBC. Function improving, creatinine down to 1.2, baseline 1.15. No flatus. Pain currently controlled. Denies chest pain, palpitations or shortness of breath. Oxygen has been weaned off and is currently maintaining O2 sats in the 90s on room air. Hemoglobin 12.2, platelets 169, chemistry unremarkable. Blood sugars better controlled. Hemoglobin A1c 5.6. 10/15/2023 Patient is seen and evaluated in follow-up this morning currently remains n.p.o. per general surgery. Patient did have a low-grade temp this morning and is maintained on antibiotics and will continue. White count mildly elevated. Patient continues with BRADLEY drain with dark output noted and is tender in the abdomen. No bowel sounds noted on exam. Awaiting speech evaluation as patient apparently had difficulty with swallowing pills yesterday. Nursing staff reports he swallowed his pills today. Recommend aspiration precautions with head of the bed elevated 45 degrees at all times. 10/16/2023 Patient is seen and evaluated in follow-up today much more awake and alert today reporting he is feeling thirsty and is maintained on IV hydration in the form of normal saline. Labs reviewed and sodium noted to be slightly elevated at 146 and will transition to D5 and half normal saline and follow-up with repeat labs. Patient continues on n.p.o. diet although is being transition to clear liquids per surgery recommendations. Patient continues on IV Zosyn and blood cultures remain negative thus far. Patient having some drainage and crusting of the eyes and has been itching them with concerns of conjunctivitis and will add Polytrim. Recommend repeat labs and PT/OT therapy evaluation as patient is significantly weak and would benefit from rehab. 10/17/2023 Patient is evaluated today he is awake alert. He continues on IV hydration with 5 half-normal saline at 100 MLS per hour. Odium is down to 139 today with a potassium of 3.2. Which will be supplemented. His white blood cell count has normalized to 9.08. Hemoglobin of 10.9. Patient remains on IV Zosyn and blood cultures are negative so far. He reports less itching and drainage of his left eye and continues on the antibiotic eyedrops. Patient will need subacute rehab on discharge. He continues on clear liquid diet. Review of systems: Constitutional: No reports of fatigue, fever, or chills, reports of itchy eyes and watering with some drainage and crusting noted Cardiovascular: No reports of chest pain or palpitations Respiratory: No reports of shortness of breath or cough GI: No reports of nausea, vomiting, or diarrhea, reports to feeling thirsty : No reports of dysuria or retention Neurovascular: reports of generalized weakness All medications have been reviewed PHYSICAL EXAM: GENERAL: Pleasant 68-year-old gentleman sitting up in bed, conversing slowly, appropriately, well-developed, elderly appearing HEENT: Normocephalic, Conjunctivae normal. eyes normal. NECK: Supple, No JVD. No thyroid enlargement. No LNs CARDIOVASCULAR: S1, S2 regular.. No murmur RESPIRATION: Unlabored, equal air entry, Breath sounds diminished in the bases. No rhonchi or crackles. No bronchial breathing. ABDOMEN: Soft, mildly tender, status post surgery with BRADLEY drain noted to have dark output. Sluggish bowel sounds noted. LEGS: No edema. no swelling PSYCHIATRY: Alert and oriented X2-3, mood and affect normal. NERVOUS SYSTEM: Cranial N 2-12 grossly normal. Moves all 4 limbs. No focal deficits. Strength and sensation grossly intact.. Diffusely weak Skin: Warm and dry, no rash Assessment: Acute ruptured appendicitis with abscess status post diagnostic laparoscopy, open appendectomy. Parkinson's disease history Hypernatremia, likely secondary to poor solute intake and n.p.o. 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 Being started on clear liquids this evening. Recommend aspiration precautions and supervision along with head of the bed elevated 30 to 45 degrees at all times Patient was able to take medications today and mentation and alertness is imp roved today Will initiate Polytrim eyedrops as there is concerns of conjunctivitis as patient has itching and draining with crustiness especially on the left side Recommend PT/OT therapy evaluation as patient would benefit from ECF Will follow-up on repeat labs Transition fluids to D5 half-normal saline, sodium has improved today we will recommend that patient continues on IV fluids and supplement electrolytes as needed. Potassium 3.3 today. Continue monitoring Accu-Cheks before meals and at bedtime and use sliding scale as needed We will continue to follow with general surgery during hospitalization. Thank you kindly for this consultation Overall prognosis is guarded The impression and plan of care has been dictated by Gracie Brandt Nurse Practitioner as directed. Dr. Moris MD I have performed a history and physical examination and medical decision making of this patient, discussed the same with the dictator, and agree with the dictators assessment and plan as written, documented as a scribe. Based on total visit time, I have performed more than 50% of this visit. Objective - Vital Signs Vital signs: Vital Signs Temp 98.5 F 10/17/23 07:57 Pulse 70 10/17/23 12:09 Resp 16 10/17/23 07:57 BP 127/66 10/17/23 07:57 Pulse Ox 97 10/17/23 08:36 FiO2 Intake & Output 10/16/23 10/17/23 10/17/23 18:59 06:59 18:59 Intake Total 710 Output Total 715 710 10 Balance -715 0 -10 Weight 99.79 kg Intake: Oral 710 Output: Drainage 15 10 10 Right Lower Abdomen 15 10 10 Urine 700 700 Other: Voiding Method Indwelling Catheter Indwelling Catheter Indwelling Catheter # Bowel Movements 1 - Labs CBC & Chem 7: 10/17/23 07:07 10/17/23 07:07 Labs: Abnormal Lab Results - Last 24 Hours (Table) 10/16/23 10/17/23 10/17/23 Range/Units 18:05 00:09 06:34 RBC (4.40-5.60) X 10*6/uL Hgb (13.0-17.0) g/dL Hct (39.6-50.0) % MPV (9.5-12.2) FL Immature Gran # (0.00-0.04) X 10*3/uL Potassium (3.5-5.1) mmol/L Chloride (98-107) mmol/L Glucose (74-99) mg/dL POC Glucose (mg/dL) 127 H 130 H 128 H (70-110) mg/dL Calcium (8.4-10.2) mg/dL Total Protein (6.3-8.2) g/dL Albumin (3.5-5.0) g/dL 10/17/23 10/17/23 10/17/23 Range/Units 07:07 07:07 12:13 RBC 3.73 L (4.40-5.60) X 10*6/uL Hgb 10.9 L (13.0-17.0) g/dL Hct 32.2 L (39.6-50.0) % MPV 8.8 L (9.5-12.2) FL Immature Gran # 0.06 H (0.00-0.04) X 10*3/uL Potassium 3.2 L (3.5-5.1) mmol/L Chloride 110 H (98-107) mmol/L Glucose 133 H (74-99) mg/dL POC Glucose (mg/dL) 140 H (70-110) mg/dL Calcium 7.6 L (8.4-10.2) mg/dL Total Protein 4.7 L (6.3-8.2) g/dL Albumin 2.3 L (3.5-5.0) g/dL Assessment and Plan Time with Patient: Less than 30
--- NOTE | 2023-10-17 15:18 | P.PN ---
Subjective Progress Note Date: 10/17/23 HISTORY OF PRESENT ILLNESS: Patient postop day #4 status post diagnostic laparoscopy with open appendectomy. Pain is controlled. No flatus. Denies any nausea or vomiting. Afebrile. PHYSICAL EXAM: VITAL SIGNS: Reviewed. GENERAL: Well-developed in no acute distress. HEENT: No sclera icterus. Extraocular movements grossly intact. Moist buccal mucosa. Head is atraumatic, normocephalic. ABDOMEN: Soft. Tender at incision site. Incisional dressing with small area of blood saturation. BRADLEY drain output bilous in color NEUROLOGIC: Awake. less confused. ASSESSMENT: 1. Acute ruptured appendicitis with abscess 2. Atelectasis 3. History of Parkinson's PLAN: -Resume IV Tylenol scheduled for pain -Continue antibiotics -FLD started -Continue nebulizer treatments -Consult PT OT -Encourage patient to increase activity level. Encouraged patient to use incentive spirometer -DVT prophylaxis Lovenox Objective - Vital Signs Vital signs: Vital Signs Temp 98.5 F 10/17/23 07:57 Pulse 70 10/17/23 12:09 Resp 16 10/17/23 07:57 BP 127/66 10/17/23 07:57 Pulse Ox 97 10/17/23 08:36 FiO2 Intake & Output 10/16/23 10/17/23 10/17/23 18:59 06:59 18:59 Intake Total 710 Output Total 715 710 10 Balance -715 0 -10 Weight 99.79 kg Intake: Oral 710 Output: Drainage 15 10 10 Right Lower Abdomen 15 10 10 Urine 700 700 Other: Voiding Method Indwelling Catheter Indwelling Catheter Indwelling Catheter # Bowel Movements 1 - Labs CBC & Chem 7: 10/17/23 07:07 10/17/23 07:07 Labs: Abnormal Lab Results - Last 24 Hours (Table) 10/16/23 10/17/23 10/17/23 Range/Units 18:05 00:09 06:34 RBC (4.40-5.60) X 10*6/uL Hgb (13.0-17.0) g/dL Hct (39.6-50.0) % MPV (9.5-12.2) FL Immature Gran # (0.00-0.04) X 10*3/uL Potassium (3.5-5.1) mmol/L Chloride (98-107) mmol/L Glucose (74-99) mg/dL POC Glucose (mg/dL) 127 H 130 H 128 H (70-110) mg/dL Calcium (8.4-10.2) mg/dL Total Protein (6.3-8.2) g/dL Albumin (3.5-5.0) g/dL 10/17/23 10/17/23 10/17/23 Range/Units 07:07 07:07 12:13 RBC 3.73 L (4.40-5.60) X 10*6/uL Hgb 10.9 L (13.0-17.0) g/dL Hct 32.2 L (39.6-50.0) % MPV 8.8 L (9.5-12.2) FL Immature Gran # 0.06 H (0.00-0.04) X 10*3/uL Potassium 3.2 L (3.5-5.1) mmol/L Chloride 110 H (98-107) mmol/L Glucose 133 H (74-99) mg/dL POC Glucose (mg/dL) 140 H (70-110) mg/dL Calcium 7.6 L (8.4-10.2) mg/dL Total Protein 4.7 L (6.3-8.2) g/dL Albumin 2.3 L (3.5-5.0) g/dL
[2023-10-17 18:02] LABS: Glucose,Whole Blood 131 mg/dL (70-110)
[2023-10-17 20:22] LABS: Glucose,Whole Blood 115 mg/dL (70-110)
[2023-10-18 07:39] LABS: Glucose,Whole Blood 122 mg/dL (70-110)
[2023-10-18 12:22] LABS: African American GFR (CKD) >90 (>60 ml/min/1.73 sqM); Anion Gap 5 mmol/L; Blood Urea Nitrogen 12 mg/dL (9-20); Calcium 7.8 mg/dL (8.4-10.2); Carbon Dioxide 24 mmol/L (22-30); Chloride 108 mmol/L (98-107); Glucose 144 mg/dL (74-99); Non-African American GFR(CKD) >90 (>60 ml/min/1.73 sqM); Potassium 3.5 mmol/L (3.5-5.1); Sodium 137 mmol/L (137-145)
[2023-10-18 12:23] LABS: Glucose,Whole Blood 128 mg/dL (70-110)
[2023-10-18] MEDS: INSULIN ASPART (NovoLOG) 100 UNIT/ML VIAL SQ SCH (12:35)
--- NOTE | 2023-10-18 12:47 | P.PN ---
Subjective Progress Note Date: 10/18/23 This is a 68-year-old gentleman with past medical history significant for Parkinson's disease, gait dysfunction, dysarthria since jaw reconstruction-that progressed with Parkinson's disease over the last couple years, anxiety, diabetes mellitus, hypertension, sleep apnea-wears CPAP, constipation and multi ple other medical issues , status post acute ruptured appendicitis with abscess status post diagnostic laparoscopy, open appendectomy. Tolerated procedure well. Tmax 100.9 axillary, blood cultures in progress, normal WBC. Function improving, creatinine down to 1.2, baseline 1.15. No flatus. Pain currently controlled. Denies chest pain, palpitations or shortness of breath. Oxygen has been weaned off and is currently maintaining O2 sats in the 90s on room air. Hemoglobin 12.2, platelets 169, chemistry unremarkable. Blood sugars better controlled. Hemoglobin A1c 5.6. 10/15/2023 Patient is seen and evaluated in follow-up this morning currently remains n.p.o. per general surgery. Patient did have a low-grade temp this morning and is maintained on antibiotics and will continue. White count mildly elevated. Patient continues with BRADLEY drain with dark output noted and is tender in the abdomen. No bowel sounds noted on exam. Awaiting speech evaluation as patient apparently had difficulty with swallowing pills yesterday. Nursing staff reports he swallowed his pills today. Recommend aspiration precautions with head of the bed elevated 45 degrees at all times. 10/16/2023 Patient is seen and evaluated in follow-up today much more awake and alert today reporting he is feeling thirsty and is maintained on IV hydration in the form of normal saline. Labs reviewed and sodium noted to be slightly elevated at 146 and will transition to D5 and half normal saline and follow-up with repeat labs. Patient continues on n.p.o. diet although is being transition to clear liquids per surgery recommendations. Patient continues on IV Zosyn and blood cultures remain negative thus far. Patient having some drainage and crusting of the eyes and has been itching them with concerns of conjunctivitis and will add Polytrim. Recommend repeat labs and PT/OT therapy evaluation as patient is significantly weak and would benefit from rehab. 10/17/2023 Patient is evaluated today he is awake alert. He continues on IV hydration with 5 half-normal saline at 100 MLS per hour. Odium is down to 139 today with a potassium of 3.2. Which will be supplemented. His white blood cell count has normalized to 9.08. Hemoglobin of 10.9. Patient remains on IV Zosyn and blood cultures are negative so far. He reports less itching and drainage of his left eye and continues on the antibiotic eyedrops. Patient will need subacute rehab on discharge. He continues on clear liquid diet. 10/18/2023 Patient is seen in follow-up today on the surgical floor. He continues on IV hydration with D5 half-normal saline at 100 mph. He does report increased abdominal discomfort after being upgraded to a full liquid diet. He is passing gas and having bowel movements. Sodium is 137, potassium 3.2, chloride 108. Review of systems: Constitutional: No reports of fatigue, fever, or chills, reports of itchy eyes and watering with some drainage and crusting noted Cardiovascular: No reports of chest pain or palpitations Respiratory: No reports of shortness of breath or cough GI: No reports of nausea, vomiting, or diarrhea, reports to feeling thirsty : No reports of dysuria or retention Neurovascular: reports of generalized weakness All medications have been reviewed PHYSICAL EXAM: GENERAL: Pleasant 68-year-old gentleman sitting up in bed, conversing slowly, appropriately, well-developed, elderly appearing HEENT: Normocephalic, Conjunctivae normal. eyes normal. NECK: Supple, No JVD. No thyroid enlargement. No LNs CARDIOVASCULAR: S1, S2 regular.. No murmur RESPIRATION: Unlabored, equal air entry, Breath sounds diminished in the bases. No rhonchi or crackles. No bronchial breathing. ABDOMEN: Soft, mildly tender, status post surgery with BRADLEY drain noted to have dark output. Sluggish bowel sounds noted. LEGS: No edema. no swelling PSYCHIATRY: Alert and oriented X2-3, mood and affect normal. NERVOUS SYSTEM: Cranial N 2-12 grossly normal. Moves all 4 limbs. No focal deficits. Strength and sensation grossly intact.. Diffusely weak Skin: Warm and dry, no rash Assessment: Acute ruptured appendicitis with abscess status post diagnostic laparoscopy, open appendectomy. Parkinson's disease history Hypernatremia, likely secondary to poor solute intake and n.p.o. 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 Being started on clear liquids this evening. Recommend aspiration precautions and supervision along with head of the bed elevated 30 to 45 degrees at all times Patient was able to take medications today and mentation and alertness is improved today Continues on antibiotic eye gtts with improvement of drainage and crusting. Recommend PT/OT therapy evaluation as patient would benefit from ECF Will follow-up on repeat labs Transition fluids to D5 half-normal saline potassium remains low and IV fluids have been changed to D5 1/2 normal saline with added potassium. Monitor electrolytes. Continue monitoring Accu-Cheks before meals and at bedtime and use sliding scale as needed We will continue to follow with general surgery during hospitalization. Thank you kindly for this consultation Overall prognosis is guarded The impression and plan of care has been dictated by Gracie Brandt, Nurse Practitioner as directed. Dr. Moris MD I have performed a history and physical examination and medical decision making of this patient, discussed the same with the dictator, and agree with the dictators assessment and plan as written, documented as a scribe. Based on total visit time, I have performed more than 50% of this visit. Objective - Vital Signs Vital signs: Vital Signs Temp 98.3 F 10/18/23 07:30 Pulse 80 10/18/23 11:48 Resp 18 10/18/23 07:30 BP 127/76 10/18/23 07:30 Pulse Ox 92 L 10/18/23 08:34 FiO2 Intake & Output 10/17/23 10/18/23 10/18/23 18:59 06:59 18:59 Intake Total 1760 Output Total 810 1060 Balance -810 700 Intake: Intake, IV Titration 1400 Amount Dextrose 5%-0.45% NaCl 1, 1200 000 ml @ 100 mls/hr IV . Q10H BETTE Rx#:[id number] Piperacillin-Tazobactam 3 200 .375 gm In Sodium Chloride 0.9% 100 ml @ 25 mls/hr IVPB Q8HR BETTE Rx# :[id number] Oral 360 Output: Drainage 10 60 Right Lower Abdomen 10 60 Urine 800 1000 Other: Voiding Method Indwelling Catheter Indwelling Catheter Indwelling Catheter - Labs CBC & Chem 7: 10/17/23 07:07 10/18/23 11:30 Labs: Abnormal Lab Results - Last 24 Hours (Table) 10/17/23 10/17/23 10/18/23 Range/Units 18:01 20:21 07:38 Chloride (98-107) mmol/L Glucose (74-99) mg/dL POC Glucose (mg/dL) 131 H 115 H 122 H (70-110) mg/dL Calcium (8.4-10.2) mg/dL 10/18/23 10/18/23 Range/Units 11:30 12:22 Chloride 108 H (98-107) mmol/L Glucose 144 H (74-99) mg/dL POC Glucose (mg/dL) 128 H (70-110) mg/dL Calcium 7.8 L (8.4-10.2) mg/dL Microbiology - Last 24 Hours (Table) 10/12/23 23:02 Blood Culture - Final Blood Assessment and Plan Time with Patient: Less than 30
--- NOTE | 2023-10-18 15:50 | P.PN ---
Subjective Progress Note Date: 10/18/23 Family at bedside. Patient still has catheter. He has occasional confusion. He tolerated full liquid diet. Recommend advance diet as tolerated. Discontinue Fernandes catheter. PT OT advised. Continue hospitalization in the interim. Objective - Vital Signs Vital signs: Vital Signs Temp 98.6 F 10/18/23 14:00 Pulse 92 10/18/23 14:00 Resp 18 10/18/23 14:00 BP 145/53 10/18/23 14:00 Pulse Ox 95 10/18/23 14:00 FiO2 Intake & Output 10/17/23 10/18/23 10/18/23 18:59 06:59 18:59 Intake Total 1760 Output Total 810 1060 Balance -810 700 Intake: Intake, IV Titration 1400 Amount Dextrose 5%-0.45% NaCl 1, 1200 000 ml @ 100 mls/hr IV . Q10H BETTE Rx#:[id number] Piperacillin-Tazobactam 3 200 .375 gm In Sodium Chloride 0.9% 100 ml @ 25 mls/hr IVPB Q8HR BETTE Rx# :[id number] Oral 360 Output: Drainage 10 60 Right Lower Abdomen 10 60 Urine 800 1000 Other: Voiding Method Indwelling Catheter Indwelling Catheter Indwelling Catheter - Labs CBC & Chem 7: 10/17/23 07:07 10/18/23 11:30 Labs: Abnormal Lab Results - Last 24 Hours (Table) 10/17/23 10/17/23 10/18/23 Range/Units 18:01 20:21 07:38 Chloride (98-107) mmol/L Glucose (74-99) mg/dL POC Glucose (mg/dL) 131 H 115 H 122 H (70-110) mg/dL Calcium (8.4-10.2) mg/dL 10/18/23 10/18/23 Range/Units 11:30 12:22 Chloride 108 H (98-107) mmol/L Glucose 144 H (74-99) mg/dL POC Glucose (mg/dL) 128 H (70-110) mg/dL Calcium 7.8 L (8.4-10.2) mg/dL Microbiology - Last 24 Hours (Table) 10/12/23 22:47 Blood Culture - Final Blood 10/12/23 23:02 Blood Culture - Final Blood
[2023-10-18 17:23] LABS: Glucose,Whole Blood 102 mg/dL (70-110)
[2023-10-18] MEDS: D5-0.45% NACL WITH KCL 20MEQ/L 1,000 ML IV SCH (18:12)
[2023-10-18] MEDS ORDERED: ZINC OXIDE PASTE (Z-GUARD) 1 APPLIC TOPICAL PRN (18:24)
[2023-10-19 00:01] LABS: Glucose,Whole Blood 130 mg/dL (70-110)
[2023-10-19 06:26] LABS: Glucose,Whole Blood 137 mg/dL (70-110)
[2023-10-19 08:36] LABS: BUN/Creat Ratio 10.78 Ratio (12.00-20.00); Blood Urea Nitrogen 9.7 mg/dL (9.0-27.0); Calcium 8.1 mg/dL (8.7-10.3); Carbon Dioxide 22.8 mmol/L (21.6-31.8); Chloride 107 mmol/L (96-109); Glucose 139 mg/dL (70-110); Potassium 3.7 mmol/L (3.5-5.5); Sodium 141 mmol/L (135-145)
[2023-10-19 09:32] LABS: Basophils # (A) 0.08 X 10*3/uL (0.00-0.10); Basophils % (A) 0.8 %; Eosinophils # (A) 0.23 X 10*3/uL (0.04-0.35); Eosinophils % (A) 2.2 %; HCT 33.3 % (39.6-50.0); HGB 11.4 g/dL (13.0-17.0); Lymphocytes # (A) 1.39 X 10*3/uL (0.90-5.00); Lymphocytes % (A) 13.5 %; MCH 29.2 pg (27.0-32.0); MCHC 34.2 g/dL (32.0-37.0); MCV 85.4 FL (80.0-97.0); Mean Platelet Volume 8.9 FL (9.5-12.2); Microcytosis (M) 2+; Monocytes # (A) 0.62 X 10*3/uL (0.20-1.00); NRBC Per 100 WBC 0 X 10*3/uL (0.00-0.01); Neutrophils # (A) 7.86 X 10*3/uL (1.80-7.70); Neutrophils % (A) 76.2 %; Platelet Count 307 X 10*3/uL (140-440); RDW 12.5 % (11.5-14.5); WBC 10.31 X 10*3/uL (4.50-10.00)
--- NOTE | 2023-10-19 09:56 | XR ---
EXAMINATION TYPE: XR chest 1V portable DATE OF EXAM: 10/19/2023 Comparison: 10/13/2023 Clinical History: 68-year-old male shortness of breath Findings: Heart upper limits of normal in size. Mild tortuosity/ectasia of the thoracic aorta. Mild patchy dens ity at the left base. Low lung volumes and crowded vascular markings. Impression: 1. Hypoventilatory changes. 2. Some patchy density at the left base could represent atelectasis or developing infiltrate. Correla te with symptoms.
[2023-10-19 11:45] LABS: Glucose,Whole Blood 136 mg/dL (70-110)
--- NOTE | 2023-10-19 16:30 | P.PN ---
Subjective Progress Note Date: 10/19/23 CHIEF COMPLAINT: Ruptured appendicitis with abscess HISTORY OF PRESENT ILLNESS: Patient postop day #6 status post diagnostic laparoscopy with open appendectomy. Patient had a small BM. He reports his dylan n is controlled. Denies any nausea or vomiting. BRADLEY drain serosanguineous output. Afebrile. WBC 10.3 PHYSICAL EXAM: VITAL SIGNS: Reviewed. GENERAL: Well-developed in no acute distress. HEENT: No sclera icterus. Extraocular movements grossly intact. Moist buccal mucosa. Head is atraumatic, normocephalic. ABDOMEN: Soft. Mild tenderness at incision site. Incision clean dry and intact. BRADLEY drain serosanguineous output. NEUROLOGIC: Awake. less confused. ASSESSMENT: 1. Acute ruptured appendicitis with abscess 2. Atelectasis 3. History of Parkinson's PLAN: -Continue full liquid diet -Continue pain management -Encourage patient to increase activity level -Continue antibiotics -IV fluids per medicine service -DVT prophylaxis Lovenox Physician Production Support Analyst note has been reviewed by physician. Signing provider agrees with the documented findings, assessment, and plan of care. I have personally seen and examined the patient, reviewed the TYPING ELEMENT MACHINE OPERATOR /PAs history, exam and MDM and agree with the assessment and plan as written. Based on total visit time, I have performed more than 50% of the visit. As above: Patient doing better. Having bowel activity now. Tolerating full liquids. Mild lower abdominal discomfort. Tmax 99.8. White count 10.3. Continue increasing activity. Continue antibiotics. Objective - Vital Signs Vital signs: Vital Signs Temp 99.2 F 10/19/23 12:28 Pulse 72 10/19/23 16:15 Resp 16 10/19/23 12:28 BP 137/70 10/19/23 12:28 Pulse Ox 95 10/19/23 12:28 FiO2 Intake & Output 10/18/23 10/19/23 10/19/23 18:59 06:59 18:59 Output Total 910 1230 Balance -910 -1230 Weight 99.79 kg Output: Drainage 20 30 Right Lower Abdomen 20 30 Urine 890 1200 Other: Voiding Method Indwelling Catheter Indwelling Catheter - Labs CBC & Chem 7: 10/19/23 06:13 10/19/23 06:13 Labs: Abnormal Lab Results - Last 24 Hours (Table) 10/19/23 10/19/23 10/19/23 Range/Units 00:00 06:13 06:13 WBC 10.31 H (4.50-10.00) X 10*3/uL RBC 3.90 L (4.40-5.60) X 10*6/uL Hgb 11.4 L (13.0-17.0) g/dL Hct 33.3 L (39.6-50.0) % MPV 8.9 L (9.5-12.2) FL Immature Gran # 0.13 H (0.00-0.04) X 10*3/uL Neutrophils # 7.86 H (1.80-7.70) X 10*3/uL Microcytosis (manual) 2+ A BUN/Creatinine Ratio 10.78 L (12.00-20.00) Ratio Glucose 139 H (70-110) mg/dL POC Glucose (mg/dL) 130 H (70-110) mg/dL Calcium 8.1 L (8.7-10.3) mg/dL 10/19/23 10/19/23 Range/Units 06:25 11:44 WBC (4.50-10.00) X 10*3/uL RBC (4.40-5.60) X 10*6/uL Hgb (13.0-17.0) g/dL Hct (39.6-50.0) % MPV (9.5-12.2) FL Immature Gran # (0.00-0.04) X 10*3/uL Neutrophils # (1.80-7.70) X 10*3/uL Microcytosis (manual) BUN/Creatinine Ratio (12.00-20.00) Ratio Glucose (70-110) mg/dL POC Glucose (mg/dL) 137 H 136 H (70-110) mg/dL Calcium (8.7-10.3) mg/dL Microbiology - Last 24 Hours (Table) 10/12/23 22:47 Blood Culture - Final Blood
[2023-10-19 17:41] LABS: Glucose,Whole Blood 109 mg/dL (70-110)
[2023-10-19 20:26] LABS: Glucose,Whole Blood 135 mg/dL (70-110)
[2023-10-20 02:47] LABS: Glucose,Whole Blood 114 mg/dL (70-110)
--- NOTE | 2023-10-20 06:18 | P.PN ---
Subjective Progress Note Date: 10/19/23 This is a 68-year-old gentleman with past medical history significant for Parkinson's disease, gait dysfunction, dysarthria since jaw reconstruction-that progressed with Parkinson's disease over the last couple years, anxiety, diabetes mellitus, hypertension, sleep apnea-wears CPAP, constipation and mu ltiple other medical issues , status post acute ruptured appendicitis with abscess status post diagnostic laparoscopy, open appendectomy. Tolerated procedure well. Tmax 100.9 axillary, blood cultures in progress, normal WBC. Function improving, creatinine down to 1.2, baseline 1.15. No flatus. Pain currently controlled. Denies chest pain, palpitations or shortness of breath. Oxygen has been weaned off and is currently maintaining O2 sats in the 90s on room air. Hemoglobin 12.2, platelets 169, chemistry unremarkable. Blood sugars better controlled. Hemoglobin A1c 5.6. 10/15/2023 Patient is seen and evaluated in follow-up this morning currently remains n.p.o. per general surgery. Patient did have a low-grade temp this morning and is maintained on antibiotics and will continue. White count mildly elevated. Patient continues with BRADLEY drain with dark output noted and is tender in the abdomen. No bowel sounds noted on exam. Awaiting speech evaluation as patient apparently had difficulty with swallowing pills yesterday. Nursing staff reports he swallowed his pills today. Recommend aspiration precautions with head of the bed elevated 45 degrees at all times. 10/16/2023 Patient is seen and evaluated in follow-up today much more awake and alert today reporting he is feeling thirsty and is maintained on IV hydration in the form of normal saline. Labs reviewed and sodium noted to be slightly elevated at 146 and will transition to D5 and half normal saline and follow-up with repeat labs. Patient continues on n.p.o. diet although is being transition to clear liquids per surgery recommendations. Patient continues on IV Zosyn and blood cultures remain negative thus far. Patient having some drainage and crusting of the eyes and has been itching them with concerns of conjunctivitis and will add Polytrim. Recommend repeat labs and PT/OT therapy evaluation as patient is significantly weak and would benefit from rehab. 10/17/2023 Patient is evaluated today he is awake alert. He continues on IV hydration with 5 half-normal saline at 100 MLS per hour. Odium is down to 139 today with a potassium of 3.2. Which will be supplemented. His white blood cell count has normalized to 9.08. Hemoglobin of 10.9. Patient remains on IV Zosyn and blood cultures are negative so far. He reports less itching and drainage of his left eye and continues on the antibiotic eyedrops. Patient will need subacute rehab on discharge. He continues on clear liquid diet. 10/18/2023 Patient is seen in follow-up today on the surgical floor. He continues on IV hydration with D5 half-normal saline at 100 mph. He does report increased abdominal discomfort after being upgraded to a full liquid diet. He is passing gas and having bowel movements. Sodium is 137, potassium 3.2, chloride 108. 10/19/2023 Patient is seen and evaluated in follow-up lethargic although easily arousable. Patient maintained on gentle IV hydration and oxygen saturations 90% will obtain chest x-ray. Encouraged increased activity as tolerated and recommend physical therapy daily. Patient with significant weakness and prolonged hospitalization with plans for ECF on discharge. Patient is currently on full liquid and was reporting some abdominal discomfort although was having bowel movements. Encouraged oral intake and recommend aspiration precautions with head of the bed elevated 30 to 45 degrees and supervision with meals. Review of systems: Constitutional: No reports of fatigue, fever, or chills Cardiovascular: No reports of chest pain or palpitations Respiratory: No reports of shortness of breath or cough GI: No reports of nausea, vomiting, or diarrhea, reports some abdominal discomfort : No reports of dysuria or retention Neurovascular: reports of generalized weakness All medications have been reviewed PHYSICAL EXAM: GENERAL: Pleasant 68-year-old gentleman sitting up in bed, lethargic although arousable, conversing slowly, appropriately, well-developed, elderly appearing HEENT: Normocephalic, Conjunctivae normal. eyes normal. NECK: Supple, No JVD. No thyroid enlargement. No LNs CARDIOVASCULAR: S1, S2 regular.. No murmur RESPIRATION: Unlabored, equal air entry, Breath sounds diminished in the bases. No rhonchi or crackles. No bronchial breathing. ABDOMEN: Soft, mildly tender, status post surgery with BRADLEY drain noted. bowel sounds noted. LEGS: No edema. no swelling PSYCHIATRY: Alert and oriented X2-3, mood and affect normal. NERVOUS SYSTEM: Cranial N 2-12 grossly normal. Moves all 4 limbs. No focal deficits. Strength and sensation grossly intact.. Diffusely weak Skin: Warm and dry, no rash Assessment: Acute ruptured appendicitis with abscess status post diagnostic laparoscopy, open appendectomy. Parkinson's disease history Hypernatremia, likely secondary to poor solute intake and n.p.o. 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 Diet has been advanced to full liquids. Recommend to continue with aspiration precautions and supervision along with head of the bed elevated 30 to 45 degrees at all times Patient was able to take medications today and mentation and alertness is improved Continues on antibiotic eye gtts with improvement of drainage and crusting. Recommend PT/OT therapy evaluation as patient would benefit from ECF Continue gentle IV hydration although reduced rate. Patient is maintained on D5 and half-normal saline with potassium and potassium is 3.7 today. Will continue for now and follow-up on repeat labs Continue monitoring Accu-Cheks before meals and at bedtime and use sliding scale as needed We will continue to follow with general surgery during hospitalization. Thank you kindly for this consultation Overall prognosis is guarded The impression and plan of care has been dictated by Ynes Mendoza, Nurse Practitioner as directed. Dr. Moris MD I have performed a history and physical examination and medical decision making of this patient, discussed the same with the dictator, and agree with the dictators assessment and plan as written, documented as a scribe. Based on total visit time, I have performed more than 50% of this visit. Objective - Vital Signs Vital signs: Vital Signs Temp 99.2 F 10/19/23 12:28 Pulse 73 10/19/23 12:28 Resp 16 10/19/23 12:28 BP 137/70 10/19/23 12:28 Pulse Ox 95 10/19/23 12:28 FiO2 Intake & Output 10/18/23 10/19/23 10/19/23 18:59 06:59 18:59 Output Total 910 1230 Balance -910 -1230 Weight 99.79 kg Output: Drainage 20 30 Right Lower Abdomen 20 30 Urine 890 1200 Other: Voiding Method Indwelling Catheter Indwelling Catheter - Labs CBC & Chem 7: 10/19/23 06:13 10/19/23 06:13 Labs: Abnormal Lab Results - Last 24 Hours (Table) 10/19/23 10/19/23 10/19/23 Range/Units 00:00 06:13 06:13 WBC 10.31 H (4.50-10.00) X 10*3/uL RBC 3.90 L (4.40-5.60) X 10*6/uL Hgb 11.4 L (13.0-17.0) g/dL Hct 33.3 L (39.6-50.0) % MPV 8.9 L (9.5-12.2) FL Immature Gran # 0.13 H (0.00-0.04) X 10*3/uL Neutrophils # 7.86 H (1.80-7.70) X 10*3/uL Microcytosis (manual) 2+ A BUN/Creatinine Ratio 10.78 L (12.00-20.00) Ratio Glucose 139 H (70-110) mg/dL POC Glucose (mg/dL) 130 H (70-110) mg/dL Calcium 8.1 L (8.7-10.3) mg/dL 10/19/23 10/19/23 Range/Units 06:25 11:44 WBC (4.50-10.00) X 10*3/uL RBC (4.40-5.60) X 10*6/uL Hgb (13.0-17.0) g/dL Hct (39.6-50.0) % MPV (9.5-12.2) FL Immature Gran # (0.00-0.04) X 10*3/uL Neutrophils # (1.80-7.70) X 10*3/uL Microcytosis (manual) BUN/Creatinine Ratio (12.00-20.00) Ratio Glucose (70-110) mg/dL POC Glucose (mg/dL) 137 H 136 H (70-110) mg/dL Calcium (8.7-10.3) mg/dL Microbiology - Last 24 Hours (Table) 10/12/23 22:47 Blood Culture - Final Blood
[2023-10-20 07:05] LABS: Basophils # (A) 0.1 k/uL (0-0.2); Basophils % (A) 1 %; Eosinophils # (A) 0.3 k/uL (0-0.7); Eosinophils % (A) 3 %; HCT 35.6 % (39.0-53.0); HGB 11.8 gm/dL (13.0-17.5); Lymphocytes # (A) 1.2 k/uL (1.0-4.8); Lymphocytes % (A) 12 %; MCH 28.7 pg (25.0-35.0); MCHC 33.2 g/dL (31.0-37.0); MCV 86.4 fL (80.0-100.0); Mean Platelet Volume 7.2; Monocytes # (A) 0.4 k/uL (0-1.0); Monocytes % (A) 4 %; Neutrophils # (A) 8.3 k/uL (1.3-7.7); Neutrophils % (A) 80 %; Platelet Count 366 k/uL (150-450); RBC 4.12 m/uL (4.30-5.90); RDW 12.7 % (11.5-15.5); WBC 10.4 k/uL (3.8-10.6)
[2023-10-20 07:07] LABS: Glucose,Whole Blood 121 mg/dL (70-110)
[2023-10-20 07:22] LABS: African American GFR (CKD) >90 (>60 ml/min/1.73 sqM); Anion Gap 5 mmol/L; Blood Urea Nitrogen 11 mg/dL (9-20); Carbon Dioxide 24 mmol/L (22-30); Chloride 108 mmol/L (98-107); Glucose 117 mg/dL (74-99); Non-African American GFR(CKD) >90 (>60 ml/min/1.73 sqM); Sodium 137 mmol/L (137-145)
[2023-10-20] MEDS: ACETAMINOPHEN TAB 325 MG TAB PO PRN (09:32)
[2023-10-20 12:06] LABS: Glucose,Whole Blood 151 mg/dL (70-110)
--- NOTE | 2023-10-20 12:41 | P.PN ---
Subjective Progress Note Date: 10/20/23 This is a 68-year-old gentleman with past medical history significant for Parkinson's disease, gait dysfunction, dysarthria since jaw reconstruction-that progressed with Parkinson's disease over the last couple years, anxiety, diabetes mellitus, hypertension, sleep apnea-wears CPAP, constipation and multi ple other medical issues , status post acute ruptured appendicitis with abscess status post diagnostic laparoscopy, open appendectomy. Tolerated procedure well. Tmax 100.9 axillary, blood cultures in progress, normal WBC. Function improving, creatinine down to 1.2, baseline 1.15. No flatus. Pain currently controlled. Denies chest pain, palpitations or shortness of breath. Oxygen has been weaned off and is currently maintaining O2 sats in the 90s on room air. Hemoglobin 12.2, platelets 169, chemistry unremarkable. Blood sugars better controlled. Hemoglobin A1c 5.6. 10/15/2023 Patient is seen and evaluated in follow-up this morning currently remains n.p.o. per general surgery. Patient did have a low-grade temp this morning and is maintained on antibiotics and will continue. White count mildly elevated. Patient continues with BRADLEY drain with dark output noted and is tender in the abdomen. No bowel sounds noted on exam. Awaiting speech evaluation as patient apparently had difficulty with swallowing pills yesterday. Nursing staff reports he swallowed his pills today. Recommend aspiration precautions with head of the bed elevated 45 degrees at all times. 10/16/2023 Patient is seen and evaluated in follow-up today much more awake and alert today reporting he is feeling thirsty and is maintained on IV hydration in the form of normal saline. Labs reviewed and sodium noted to be slightly elevated at 146 and will transition to D5 and half normal saline and follow-up with repeat labs. Patient continues on n.p.o. diet although is being transition to clear liquids per surgery recommendations. Patient continues on IV Zosyn and blood cultures remain negative thus far. Patient having some drainage and crusting of the eyes and has been itching them with concerns of conjunctivitis and will add Polytrim. Recommend repeat labs and PT/OT therapy evaluation as patient is significantly weak and would benefit from rehab. 10/17/2023 Patient is evaluated today he is awake alert. He continues on IV hydration with 5 half-normal saline at 100 MLS per hour. Odium is down to 139 today with a potassium of 3.2. Which will be supplemented. His white blood cell count has normalized to 9.08. Hemoglobin of 10.9. Patient remains on IV Zosyn and blood cultures are negative so far. He reports less itching and drainage of his left eye and continues on the antibiotic eyedrops. Patient will need subacute rehab on discharge. He continues on clear liquid diet. 10/18/2023 Patient is seen in follow-up today on the surgical floor. He continues on IV hydration with D5 half-normal saline at 100 mph. He does report increased abdominal discomfort after being upgraded to a full liquid diet. He is passing gas and having bowel movements. Sodium is 137, potassium 3.2, chloride 108. 10/19/2023 Patient is seen and evaluated in follow-up lethargic although easily arousable. Patient maintained on gentle IV hydration and oxygen saturations 90% will obtain chest x-ray. Encouraged increased activity as tolerated and recommend physical therapy daily. Patient with significant weakness and prolonged hospitalization with plans for ECF on discharge. Patient is currently on full liquid and was reporting some abdominal discomfort although was having bowel movements. Encouraged oral intake and recommend aspiration precautions with head of the bed elevated 30 to 45 degrees and supervision with meals. 10/20/2023 Patient is evaluated today resting in bed. He appears to have intermittent episodes of myoclonic jerking and has had increasing confusion over the last few days. He is up in the chair for evaluation lethargic but easily arousable. He is not complaining of any chest pains or shortness of breath he does continue to report some abdominal discomfort and abdominal pain that is worse after eating. The Zosyn has been discontinued. He continues on D5 half-normal saline with 20 mEq of potassium. He has a white count 10.4, hemoglobin 11.8, sodium 137, BUN 11, creatinine 0.78 blood glucose is in normal range. Review of systems: Constitutional: No reports of fatigue, fever, or chills Cardiovascular: No reports of chest pain or palpitations Respiratory: No reports of shortness of breath or cough GI: No reports of nausea, vomiting, or diarrhea, reports some abdominal discomfort : No reports of dysuria or retention Neurovascular: reports of generalized weakness All medications have been reviewed PHYSICAL EXAM: GENERAL: Pleasant 68-year-old gentleman sitting up in bed, lethargic although arousable, conversing slowly, appropriately, well-developed, elderly appearing HEENT: Normocephalic, Conjunctivae normal. eyes normal. NECK: Supple, No JVD. No thyroid enlargement. No LNs CARDIOVASCULAR: S1, S2 regular.. No murmur RESPIRATION: Unlabored, equal air entry, Breath sounds diminished in the bases. No rhonchi or crackles. No bronchial breathing. ABDOMEN: Soft, mildly tender, status post surgery with BRADLEY drain noted. bowel sounds noted. LEGS: No edema. no swelling PSYCHIATRY: Alert and oriented X2-3, mood and affect normal. NERVOUS SYSTEM: Cranial N 2-12 grossly normal. Moves all 4 limbs. No focal deficits. Strength and sensation grossly intact.. Diffusely weak Skin: Warm and dry, no rash Assessment: Acute ruptured appendicitis with abscess status post diagnostic laparoscopy, open appendectomy. Parkinson's disease history Hypernatremia, likely secondary to poor solute intake and n.p.o. 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 Diet has been advanced to full liquids. Recommend to continue with aspiration precautions and supervision along with head of the bed elevated 30 to 45 degrees at all times Patient was able to take medications today and mentation and alertness is improved Continues on antibiotic eye gtts with improvement of drainage and crusting. Recommend PT/OT therapy evaluation as patient would benefit from ECF Continue gentle IV hydration although reduced rate. Patient is maintained on D5 and half-normal saline with potassium and potassium is 4.0 today. Will continue for now and follow-up on repeat labs Continue monitoring Accu-Cheks before meals and at bedtime and use sliding scale as needed We will continue to follow with general surgery during hospitalization. Thank you kindly for this consultation The impression and plan of care has been dictated by Gracie Brandt, Nurse Practitioner as directed. Dr. Moris MD I have performed a history and physical examination and medical decision making of this patient, discussed the same with the dictator, and agree with the dictators assessment and plan as written, documented as a scribe. Based on total visit time, I have performed more than 50% of this visit. Objective - Vital Signs Vital signs: Vital Signs Temp 98.5 F 10/20/23 08:04 Pulse 72 10/20/23 12:33 Resp 16 10/20/23 10:30 BP 131/83 10/20/23 08:04 Pulse Ox 99 10/20/23 08:04 FiO2 Intake & Output 10/19/23 10/20/23 10/20/23 18:59 06:59 18:59 Output Total 30 Balance -30 Weight 99.79 kg Output: Drainage 30 Right Lower Abdomen 30 Other: Voiding Method Diaper Diaper Incontinent # Voids 1 1 # Bowel Movements 1 1 - Labs CBC & Chem 7: 10/20/23 06:35 10/20/23 06:35 Labs: Abnormal Lab Results - Last 24 Hours (Table) 10/19/23 10/20/23 10/20/23 Range/Units 20:24 02:44 06:35 RBC 4.12 L (4.30-5.90) m/uL Hgb 11.8 L (13.0-17.5) gm/dL Hct 35.6 L (39.0-53.0) % Neutrophils # 8.3 H (1.3-7.7) k/uL Chloride (98-107) mmol/L Glucose (74-99) mg/dL POC Glucose (mg/dL) 135 H 114 H (70-110) mg/dL Calcium (8.4-10.2) mg/dL 10/20/23 10/20/23 10/20/23 Range/Units 06:35 07:05 12:04 RBC (4.30-5.90) m/uL Hgb (13.0-17.5) gm/dL Hct (39.0-53.0) % Neutrophils # (1.3-7.7) k/uL Chloride 108 H (98-107) mmol/L Glucose 117 H (74-99) mg/dL POC Glucose (mg/dL) 121 H 151 H (70-110) mg/dL Calcium 8.0 L (8.4-10.2) mg/dL Assessment and Plan Time with Patient: Less than 30
[2023-10-20 16:11] LABS: Appearance,Urine Clear (Clear); Bilirubin,Urine Negative (Negative); Blood,Urine Negative (Negative); Color,Urine Yellow; Glucose,Urine (UA) Negative (Negative); Ketones,Urine Negative (Negative); Leukocyte Esterase,Urine Negative (Negative); Nitrite,Urine Negative (Negative); PH, Urine 5.5 (5.0-8.0); Protein,Urine Negative (Negative); Specific Gravity,Urine 1.013 (1.001-1.035)
--- NOTE | 2023-10-20 16:22 | P.PN ---
Subjective Progress Note Date: 10/20/23 CHIEF COMPLAINT: Ruptured appendicitis with abscess HISTORY OF PRESENT ILLNESS: Patient postop day #7 status post diagnostic laparoscopy with open appendectomy. Patient had a soft BM. Reports his pain is okay. He is sitting at bedside chair. Denies any nausea or vomiting. BRADLEY drain serosanguineous 20 mL. Afebrile. WBC 10.4 PHYSICAL EXAM: VITAL SIGNS: Reviewed. GENERAL: Well-developed in no acute distress. HEENT: No sclera icterus. Extraocular movements grossly intact. Moist buccal mucosa. Head is atraumatic, normocephalic. ABDOMEN: Soft. Mild tenderness at incision site. Incision clean dry and intact. BRADLEY drain serosanguineous output. NEUROLOGIC: Awake. less confused. ASSESSMENT: 1. Acute ruptured appendicitis with abscess 2. Atelectasis 3. History of Parkinson's PLAN: -Continue full liquid diet -Continue pain management -Encourage patient to increase activity level -Continue antibiotics -Patient to go to [facility] at time of discharge -DVT prophylaxis [facility] Physician Data Librarian note has been reviewed by physician. Signing provider agrees with the documented findings, assessment, and plan of care. I have personally seen and examined the patient, reviewed the LOCAL B[employer]K DRIVER /PAs history, exam and MDM and agree with the assessment and plan as written. Based on total visit time, I have performed more than 50% of the visit. As above: Patient doing better today. Tolerating full liquids. Continue advancing diet. Discharge planning. Objective - Vital Signs Vital signs: Vital Signs Temp 97.8 F 10/20/23 12:49 Pulse 76 10/20/23 16:07 Resp 16 10/20/23 12:49 BP 122/74 10/20/23 12:49 Pulse Ox 99 10/20/23 12:49 FiO2 Intake & Output 10/19/23 10/20/23 10/20/23 18:59 06:59 18:59 Output Total 30 Balance -30 Weight 99.79 kg Output: Drainage 30 Right Lower Abdomen 30 Other: Voiding Method Diaper Diaper Incontinent # Voids 1 1 1 # Bowel Movements 1 1 - Labs CBC & Chem 7: 10/20/23 06:35 10/20/23 06:35 Labs: Abnormal Lab Results - Last 24 Hours (Table) 10/19/23 10/20/23 10/20/23 Range/Units 20:24 02:44 06:35 RBC 4.12 L (4.30-5.90) m/uL Hgb 11.8 L (13.0-17.5) gm/dL Hct 35.6 L (39.0-53.0) % Neutrophils # 8.3 H (1.3-7.7) k/uL Chloride (98-107) mmol/L Glucose (74-99) mg/dL POC Glucose (mg/dL) 135 H 114 H (70-110) mg/dL Calcium (8.4-10.2) mg/dL 10/20/23 10/20/23 10/20/23 Range/Units 06:35 07:05 12:04 RBC (4.30-5.90) m/uL Hgb (13.0-17.5) gm/dL Hct (39.0-53.0) % Neutrophils # (1.3-7.7) k/uL Chloride 108 H (98-107) mmol/L Glucose 117 H (74-99) mg/dL POC Glucose (mg/dL) 121 H 151 H (70-110) mg/dL Calcium 8.0 L (8.4-10.2) mg/dL
[2023-10-20 17:02] LABS: Glucose,Whole Blood 106 mg/dL (70-110)
[2023-10-20 20:24] LABS: Glucose,Whole Blood 126 mg/dL (70-110)
[2023-10-21 07:28] LABS: Glucose,Whole Blood 140 mg/dL (70-110)
[2023-10-21] MEDS: PIPERACILLIN-TAZOBACTAM 3.375 GM in SODIUM CHLORIDE 0.9% 100 ML IVPB SCH (09:41)
[2023-10-21 12:34] LABS: Glucose,Whole Blood 144 mg/dL (70-110)
--- NOTE | 2023-10-21 12:50 | P.PN ---
Subjective Progress Note Date: 10/21/23 This is a 68-year-old gentleman with past medical history significant for Parkinson's disease, gait dysfunction, dysarthria since jaw reconstruction-that progressed with Parkinson's disease over the last couple years, anxiety, diabetes mellitus, hypertension, sleep apnea-wears CPAP, constipation and multi ple other medical issues , status post acute ruptured appendicitis with abscess status post diagnostic laparoscopy, open appendectomy. Tolerated procedure well. Tmax 100.9 axillary, blood cultures in progress, normal WBC. Function improving, creatinine down to 1.2, baseline 1.15. No flatus. Pain currently controlled. Denies chest pain, palpitations or shortness of breath. Oxygen has been weaned off and is currently maintaining O2 sats in the 90s on room air. Hemoglobin 12.2, platelets 169, chemistry unremarkable. Blood sugars better controlled. Hemoglobin A1c 5.6. 10/15/2023 Patient is seen and evaluated in follow-up this morning currently remains n.p.o. per general surgery. Patient did have a low-grade temp this morning and is maintained on antibiotics and will continue. White count mildly elevated. Patient continues with BRADLEY drain with dark output noted and is tender in the abdomen. No bowel sounds noted on exam. Awaiting speech evaluation as patient apparently had difficulty with swallowing pills yesterday. Nursing staff reports he swallowed his pills today. Recommend aspiration precautions with head of the bed elevated 45 degrees at all times. 10/16/2023 Patient is seen and evaluated in follow-up today much more awake and alert today reporting he is feeling thirsty and is maintained on IV hydration in the form of normal saline. Labs reviewed and sodium noted to be slightly elevated at 146 and will transition to D5 and half normal saline and follow-up with repeat labs. Patient continues on n.p.o. diet although is being transition to clear liquids per surgery recommendations. Patient continues on IV Zosyn and blood cultures remain negative thus far. Patient having some drainage and crusting of the eyes and has been itching them with concerns of conjunctivitis and will add Polytrim. Recommend repeat labs and PT/OT therapy evaluation as patient is significantly weak and would benefit from rehab. 10/17/2023 Patient is evaluated today he is awake alert. He continues on IV hydration with 5 half-normal saline at 100 MLS per hour. Odium is down to 139 today with a potassium of 3.2. Which will be supplemented. His white blood cell count has normalized to 9.08. Hemoglobin of 10.9. Patient remains on IV Zosyn and blood cultures are negative so far. He reports less itching and drainage of his left eye and continues on the antibiotic eyedrops. Patient will need subacute rehab on discharge. He continues on clear liquid diet. 10/18/2023 Patient is seen in follow-up today on the surgical floor. He continues on IV hydration with D5 half-normal saline at 100 mph. He does report increased abdominal discomfort after being upgraded to a full liquid diet. He is passing gas and having bowel movements. Sodium is 137, potassium 3.2, chloride 108. 10/19/2023 Patient is seen and evaluated in follow-up lethargic although easily arousable. Patient maintained on gentle IV hydration and oxygen saturations 90% will obtain chest x-ray. Encouraged increased activity as tolerated and recommend physical therapy daily. Patient with significant weakness and prolonged hospitalization with plans for ECF on discharge. Patient is currently on full liquid and was reporting some abdominal discomfort although was having bowel movements. Encouraged oral intake and recommend aspiration precautions with head of the bed elevated 30 to 45 degrees and supervision with meals. 10/20/2023 Patient is evaluated today resting in bed. He appears to have intermittent episodes of myoclonic jerking and has had increasing confusion over the last few days. He is up in the chair for evaluation lethargic but easily arousable. He is not complaining of any chest pains or shortness of breath he does continue to report some abdominal discomfort and abdominal pain that is worse after eating. The Zosyn has been discontinued. He continues on D5 half-normal saline with 20 mEq of potassium. He has a white count 10.4, hemoglobin 11.8, sodium 137, BUN 11, creatinine 0.78 blood glucose is in normal range. 10/21/2023 Patient evaluated today resting in bed. Eyes are continued to be crusting and will change antibiotic eye gtts to cipro. His abdomen is soft and is having bowel movements and diet has been upgraded to lower fiber. He remains confused alert x 2 at this time. He has been placed on IV zosyn. His urinalysis is normal. His chest xray on the showing atelectasis or developing infiltrate in the left lung base. He has incentive spirometer at bedside and will need continued reinforcement to utilize. He continues on 2 to 3 L of oxygen. Review of systems: Constitutional: No reports of fatigue, fever, or chills Cardiovascular: No reports of chest pain or palpitations Respiratory: No reports of shortness of breath or cough GI: No reports of nausea, vomiting, or diarrhea, having BMs. Reporting mild abdominal discomfort. : No reports of dysuria or retention Neurovascular: reports of generalized weakness All medications have been reviewed PHYSICAL EXAM: GENERAL: Pleasant 68-year-old gentleman sitting up in bed, lethargic although arousable, conversing slowly, appropriately, well-developed, elderly appearing HEENT: Normocephalic, Conjunctivae normal. eyes normal. thick crusting both eyes. NECK: Supple, No JVD. No thyroid enlargement. No LNs CARDIOVASCULAR: S1, S2 regular.. No murmur RESPIRATION: Unlabored, equal air entry, Breath sounds diminished in the bases. No rhonchi or crackles. No bronchial breathing. ABDOMEN: Soft, mildly tender, status post surgery with BRADLEY drain noted. bowel sounds noted. LEGS: No edema. no swelling PSYCHIATRY: Alert and oriented X2-3, mood and affect normal. NERVOUS SYSTEM: Cranial N 2-12 grossly normal. Moves all 4 limbs. No focal deficits. Strength and sensation grossly intact.. Diffusely weak Skin: Warm and dry, no rash Assessment: Acute ruptured appendicitis with abscess status post diagnostic laparoscopy, open appendectomy. Parkinson's disease history Hypernatremia, likely secondary to poor solute intake and n.p.o. 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 Diet has been advanced to full liquids. Recommend to continue with aspiration precautions and supervision along with head of the bed elevated 30 to 45 degrees at all times Continues on antibiotic eye gtts which will be changed to cipro today, he has continued crusting and difficulty opening both eyes. Recommend PT/OT therapy evaluation as patient would benefit from ECF, when medically clear he will discharge to [facility] in the next 24 to 48 hours. Continue gentle IV hydration although reduced rate. Patient is maintained on D5 and half-normal saline with potassium and potassium is 4.0 today. Will continue for now and follow-up on repeat labs Continue monitoring Accu-Cheks before meals and at bedtime and use sliding scale as needed We will continue to follow with general surgery during hospitalization. Thank you kindly for this consultation The impression and plan of care has been dictated by Gracie Brandt, Nurse Practitioner as directed. Dr. Moris MD I have performed a history and physical examination and medical decision making of this patient, discussed the same with the dictator, and agree with the dictators assessment and plan as written, documented as a scribe. Based on total visit time, I have performed more than 50% of this visit. Objective - Vital Signs Vital signs: Vital Signs Temp 98.6 F 10/21/23 07:26 Pulse 72 10/21/23 12:05 Resp 18 10/21/23 07:26 BP 145/72 10/21/23 07:26 Pulse Ox 96 10/21/23 07:26 FiO2 Intake & Output 10/20/23 10/21/23 10/21/23 18:59 06:59 18:59 Intake Total 1020 Balance 1020 Intake: Intake, IV Titration 780 Amount D5-0.45% NaCl with KCl 780 20Meq/l 1,000 ml @ 65 mls /hr IV .[id number] [facility] Rx#: [id number] Oral 240 Other: Voiding Method Diaper Diaper # Voids 1 1 - Labs CBC & Chem 7: 10/20/23 06:35 10/20/23 06:35 Labs: Abnormal Lab Results - Last 24 Hours (Table) 10/20/23 10/21/23 10/21/23 Range/Units 20:22 07:26 12:32 POC Glucose (mg/dL) 126 H 140 H 144 H (70-110) mg/dL Assessment and Plan Time with Patient: Less than 30
--- NOTE | 2023-10-21 13:02 | P.PN ---
Subjective Progress Note Date: 10/21/23 CHIEF COMPLAINT: Ruptured appendicitis with abscess HISTORY OF PRESENT ILLNESS: Patient postop day #8 status post diagnostic laparoscopy with open appendectomy. Patient lying in bed comfortably. Reports his pain is controlled. He did have a bowel movement. No nausea or vomiting. Afebrile. PHYSICAL EXAM: VITAL SIGNS: Reviewed. GENERAL: Well-developed in no acute distress. HEENT: No sclera icterus. Extraocular movements grossly intact. Moist buccal mucosa. Head is atraumatic, normocephalic. ABDOMEN: Soft. Nondistended .mild tenderness at incision site. Incision clean dry and intact. BRADLEY drain serosanguineous output. NEUROLOGIC: sleepy ASSESSMENT: 1. Acute ruptured appendicitis with abscess 2. Atelectasis 3. History of Parkinson's PLAN: -Possible discharge to [facility] tomorrow -Continue low fiber -Continue pain management -Encourage patient to increase activity level -Continue antibiotics -DVT prophylaxis Lovenox Physician [employer] Consultant note has been reviewed by physician. Signing provider agrees with the documented findings, assessment, and plan of care. Objective - Vital Signs Vital signs: Vital Signs Temp 98.6 F 10/21/23 07:26 Pulse 72 10/21/23 12:05 Resp 18 10/21/23 07:26 BP 145/72 10/21/23 07:26 Pulse Ox 96 10/21/23 07:26 FiO2 Intake & Output 10/20/23 10/21/23 10/21/23 18:59 06:59 18:59 Intake Total 1020 Balance 1020 Intake: Intake, IV Titration 780 Amount D5-0.45% NaCl with KCl 780 20Meq/l 1,000 ml @ 65 mls /hr IV .[id number] [facility] Rx#: [id number] Oral 240 Other: Voiding Method Diaper Diaper # Voids 1 1 - Labs CBC & Chem 7: 10/20/23 06:35 10/20/23 06:35 Labs: Abnormal Lab Results - Last 24 Hours (Table) 10/20/23 10/21/23 10/21/23 Range/Units 20:22 07:26 12:32 POC Glucose (mg/dL) 126 H 140 H 144 H (70-110) mg/dL
[2023-10-21] MEDS: CIPROFLOXACIN 0.3% OPHTH SOLN 5 ML BTL BOTH EYES SCH (13:09)
[2023-10-21 17:09] LABS: Glucose,Whole Blood 134 mg/dL (70-110)
[2023-10-21 20:25] LABS: Glucose,Whole Blood 146 mg/dL (70-110)
[2023-10-22 07:34] LABS: Glucose,Whole Blood 142 mg/dL (70-110)
[2023-10-22 12:51] LABS: Glucose,Whole Blood 125 mg/dL (70-110)
[2023-10-22 13:51] VITALS: BP 124/70; PULSE 80; RESP 17; TEMP 98.1
--- NOTE | 2023-10-22 14:07 | P.PN ---
Subjective Progress Note Date: 10/22/23 This is a 68-year-old gentleman with past medical history significant for Parkinson's disease, gait dysfunction, dysarthria since jaw reconstruction-that progressed with Parkinson's disease over the last couple years, anxiety, diabetes mellitus, hypertension, sleep apnea-wears CPAP, constipation and multi ple other medical issues , status post acute ruptured appendicitis with abscess status post diagnostic laparoscopy, open appendectomy. Tolerated procedure well. Tmax 100.9 axillary, blood cultures in progress, normal WBC. Function improving, creatinine down to 1.2, baseline 1.15. No flatus. Pain currently controlled. Denies chest pain, palpitations or shortness of breath. Oxygen has been weaned off and is currently maintaining O2 sats in the 90s on room air. Hemoglobin 12.2, platelets 169, chemistry unremarkable. Blood sugars better controlled. Hemoglobin A1c 5.6. 10/15/2023 Patient is seen and evaluated in follow-up this morning currently remains n.p.o. per general surgery. Patient did have a low-grade temp this morning and is maintained on antibiotics and will continue. White count mildly elevated. Patient continues with BRADLEY drain with dark output noted and is tender in the abdomen. No bowel sounds noted on exam. Awaiting speech evaluation as patient apparently had difficulty with swallowing pills yesterday. Nursing staff reports he swallowed his pills today. Recommend aspiration precautions with head of the bed elevated 45 degrees at all times. 10/16/2023 Patient is seen and evaluated in follow-up today much more awake and alert today reporting he is feeling thirsty and is maintained on IV hydration in the form of normal saline. Labs reviewed and sodium noted to be slightly elevated at 146 and will transition to D5 and half normal saline and follow-up with repeat labs. Patient continues on n.p.o. diet although is being transition to clear liquids per surgery recommendations. Patient continues on IV Zosyn and blood cultures remain negative thus far. Patient having some drainage and crusting of the eyes and has been itching them with concerns of conjunctivitis and will add Polytrim. Recommend repeat labs and PT/OT therapy evaluation as patient is significantly weak and would benefit from rehab. 10/17/2023 Patient is evaluated today he is awake alert. He continues on IV hydration with 5 half-normal saline at 100 MLS per hour. Odium is down to 139 today with a potassium of 3.2. Which will be supplemented. His white blood cell count has normalized to 9.08. Hemoglobin of 10.9. Patient remains on IV Zosyn and blood cultures are negative so far. He reports less itching and drainage of his left eye and continues on the antibiotic eyedrops. Patient will need subacute rehab on discharge. He continues on clear liquid diet. 10/18/2023 Patient is seen in follow-up today on the surgical floor. He continues on IV hydration with D5 half-normal saline at 100 mph. He does report increased abdominal discomfort after being upgraded to a full liquid diet. He is passing gas and having bowel movements. Sodium is 137, potassium 3.2, chloride 108. 10/19/2023 Patient is seen and evaluated in follow-up lethargic although easily arousable. Patient maintained on gentle IV hydration and oxygen saturations 90% will obtain chest x-ray. Encouraged increased activity as tolerated and recommend physical therapy daily. Patient with significant weakness and prolonged hospitalization with plans for ECF on discharge. Patient is currently on full liquid and was reporting some abdominal discomfort although was having bowel movements. Encouraged oral intake and recommend aspiration precautions with head of the bed elevated 30 to 45 degrees and supervision with meals. 10/20/2023 Patient is evaluated today resting in bed. He appears to have intermittent episodes of myoclonic jerking and has had increasing confusion over the last few days. He is up in the chair for evaluation lethargic but easily arousable. He is not complaining of any chest pains or shortness of breath he does continue to report some abdominal discomfort and abdominal pain that is worse after eating. The Zosyn has been discontinued. He continues on D5 half-normal saline with 20 mEq of potassium. He has a white count 10.4, hemoglobin 11.8, sodium 137, BUN 11, creatinine 0.78 blood glucose is in normal range. 10/21/2023 Patient evaluated today resting in bed. Eyes are continued to be crusting and will change antibiotic eye gtts to cipro. His abdomen is soft and is having bowel movements and diet has been upgraded to lower fiber. He remains confused alert x 2 at this time. He has been placed on IV zosyn. His urinalysis is normal. His chest xray on the showing atelectasis or developing infiltrate in the left lung base. He has incentive spirometer at bedside and will need continued reinforcement to utilize. He continues on 2 to 3 L of oxygen. 10/22/2023 Patient is evaluated today resting in bed. Bowels are moving. He is more awake a nd alert. He continues on IV zosyn and recommending to continue course of oral antibiotics on discharge with augmetin. Eye gtts have been changed to cipro with improvement in the crusting and drainage today. Patient states they are less itchy. We will recommend to continue eye gtts for an additional 7 days. He has no acute complaints. BRADLEY drain remains in place to the RLQ, midline abdominal dressing intact. Abdomen is soft. His lungs are clear. Medically he is doing well and could be considered for discharge to rehab when cleared by primary service. Review of systems: Constitutional: No reports of fatigue, fever, or chills Cardiovascular: No reports of chest pain or palpitations Respiratory: No reports of shortness of breath or cough GI: No reports of nausea, vomiting, or diarrhea, having BMs. Reporting mild abdominal discomfort. : No reports of dysuria or retention Neurovascular: reports of generalized weakness All medications have been reviewed PHYSICAL EXAM: GENERAL: Pleasant 68-year-old gentleman sitting up in bed, lethargic although arousable, conversing slowly, appropriately, well-developed, elderly appearing HEENT: Normocephalic, Conjunctivae normal. eyes normal. thick crusting both eyes. NECK: Supple, No JVD. No thyroid enlargement. No LNs CARDIOVASCULAR: S1, S2 regular.. No murmur RESPIRATION: Unlabored, equal air entry, Breath sounds diminished in the bases. No rhonchi or crackles. No bronchial breathing. ABDOMEN: Soft, mildly tender, status post surgery with BRADLEY drain noted. bowel sounds noted. LEGS: No edema. no swelling PSYCHIATRY: Alert and oriented X2-3, mood and affect normal. NERVOUS SYSTEM: Cranial N 2-12 grossly normal. Moves all 4 limbs. No focal deficits. Strength and sensation grossly intact.. Diffusely weak Skin: Warm and dry, no rash Assessment: Acute ruptured appendicitis with abscess status post diagnostic laparoscopy, open appendectomy. Parkinson's disease history Hypernatremia, likely secondary to poor solute intake and n.p.o. 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 Diet has been advanced to low fiber. Recommend to continue with aspiration precautions and supervision along with head of the bed elevated 30 to 45 degrees at all times Continues on antibiotic eye gtts which were changed to cipro and patient has had improvement in the crusting and drainage recommending to continue for the next 7 days. Recommend PT/OT therapy evaluation as patient would benefit from ECF, He is medically cleared for DC to [facility]. Recommending to continue IV zosyn while inpatient and a short course of oral augmentin on discharge. Continue to reinforce using the incentive spirometer. Continue gentle IV hydration although reduced rate. Patient is maintained on D5 and half-normal saline with potassium and potassium is 4.0 today. Continue monitoring Accu-Cheks before meals and at bedtime and use sliding scale as needed We will continue to follow with general surgery during hospitalization. Thank you kindly for this consultation The impression and plan of care has been dictated by Gracie Brandt, Nurse Practitioner as directed. Dr. Moris MD I have performed a history and physical examination and medical decision making of this patient, discussed the same with the dictator, and agree with the dictators assessment and plan as written, documented as a scribe. Based on total visit time, I have performed more than 50% of this visit. Objective - Vital Signs Vital signs: Vital Signs Temp 98.1 F 10/22/23 13:36 Pulse 80 10/22/23 13:36 Resp 17 10/22/23 13:36 BP 124/70 10/22/23 13:36 Pulse Ox 98 10/22/23 13:36 FiO2 Intake & Output 10/21/23 10/22/23 10/22/23 18:59 06:59 18:59 Intake Total 980 1370 240 Output Total 10 10 Balance 970 1360 240 Weight 99.79 kg Intake: Intake, IV Titration 980 780 Amount D5-0.45% NaCl with KCl 780 780 20Meq/l 1,000 ml @ 65 mls /hr IV .[id number] [facility] Rx#: [id number] Piperacillin-Tazobactam 3 200 .375 gm In Sodium Chloride 0.9% 100 ml @ 25 mls/hr IVPB Q8HR [facility] Rx# :[id number] Oral 590 240 Output: Drainage 10 10 Right Lower Abdomen 10 10 Other: Voiding Method Diaper Diaper Diaper # Voids 2 - Labs CBC & Chem 7: 10/20/23 06:35 10/20/23 06:35 Labs: Abnormal Lab Results - Last 24 Hours (Table) 10/21/23 10/21/23 10/22/23 Range/Units 17:08 20:24 07:09 POC Glucose (mg/dL) 134 H 146 H 142 H (70-110) mg/dL 10/22/23 Range/Units 12:30 POC Glucose (mg/dL) 125 H (70-110) mg/dL Assessment and Plan Time with Patient: Less than 30
--- NOTE | 2023-10-22 14:11 | P.DS ---
Providers Date of admission: 10/12/23 22:55 Expected date of discharge: 10/22/23 Attending physician: Wan Thorne Consults: 10/13/23 08:29 Consult Physician Routine Consulting Provider: Priyank Mcnulty Consult Reason/Comments: medical management Do you want consulting provider notified?: Yes Primary care physician: Priyank Mcnulty Hospital Course: Discharge diagnosis 1. Acute ruptured appendicitis with abscess 2. Atelectasis 3. History of Parkinson's 4. History of CVA Hospital course This is a 68-year-old male who presents the hospital with abdominal pain x 1 week. Patient had initially came into the ER and was determined to have a viral infection and was discharged home. He presented back to the hospital as right sided abdominal pain. Denies any nausea or vomiting. He also has been having falls and some confusion. He had a CT scan abdomen and pelvis that had shown acute appendicitis with contained perforation and no fluid collection. Patient is status post open appendectomy. Patient's pain is controlled. He is tolerating diet. He is having bowel movements. He has ambulated. He is afebrile. He has worked with physical therapy and they are recommending discharge to ECF. Patient will be discharged to ECF. He is stable for discharge. Physician Long Term Care Administrator note has been reviewed by physician. Signing provider agrees with the documented findings, assessment, and plan of care. Patient Condition at Discharge: Stable Plan - Discharge Summary Discharge Rx Participant: No New Discharge Prescriptions: New Acetaminophen Tab [Tylenol] 650 mg PO Q6HR PRN tab PRN Reason: Mild Pain Or Fever >= 100.5 Pantoprazole [Protonix] 40 mg PO DAILY #30 tab Amoxic-Pot Clav 875-125Mg [Augmentin 875-125] 1 tab PO Q12HR 7 Days #14 tab Ciprofloxacin Ophth Soln [Ciloxan 0.3% Ophth Soln] 1 drops BOTH EYES Q4HR ml Ipratropium-Albuterol Nebulize [Duoneb 0.5 mg-3 mg/3 ml Soln] 3 ml INHALATION RT-QID each Enoxaparin [Lovenox] 40 mg SQ DAILY each INSULIN ASPART (NovoLOG) [NovoLOG (formulary)] 0 unit SQ ACHS each Continue Aspirin EC [Ecotrin Low Dose] 81 mg PO DAILY Vit C/E/Zn/Coppr/Lutein/Zeaxan [Preservision Areds 2 Softgel] 1 cap PO BID Escitalopram [Lexapro] 20 mg PO DAILY Meclizine HCl 25 mg PO HS Clopidogrel [Plavix] 75 mg PO DAILY tab Carbidopa-Levodopa 25-100 mg [Sinemet 25-100 mg] 1 tab PO TID@0900,1400,1900 Discontinued amLODIPine BESYLATE/BENAZEPRIL [Lotrel 5-20 mg Capsule] 1 cap PO HS Discharge Medication List Aspirin EC [Ecotrin Low Dose] 81 mg PO DAILY 01/09/22 [History] Meclizine HCl 25 mg PO HS 01/09/22 [History] Vit C/E/Zn/Coppr/Lutein/Zeaxan [Preservision Areds 2 Softgel] 1 cap PO BID 01/09/22 [History] Clopidogrel [Plavix] 75 mg PO DAILY tab 06/08/23 [Rx] Carbidopa-Levodopa 25-100 mg [Sinemet 25-100 mg] 1 tab PO TID@0900,1400,1900 09/29/23 [History] Escitalopram [Lexapro] 20 mg PO DAILY 10/12/23 [History] Acetaminophen Tab [Tylenol] 650 mg PO Q6HR PRN tab 10/22/23 [Rx] Amoxic-Pot Clav 875-125Mg [Augmentin 875-125] 1 tab PO Q12HR 7 Days #14 tab 10/22/23 [Rx] Ciprofloxacin Ophth Soln [Ciloxan 0.3% Ophth Soln] 1 drops BOTH EYES Q4HR ml 10/22/23 [Rx] Enoxaparin [Lovenox] 40 mg SQ DAILY each 10/22/23 [Rx] INSULIN ASPART (NovoLOG) [NovoLOG (formulary)] 0 unit SQ ACHS each 10/22/23 [Rx] Ipratropium-Albuterol Nebulize [Duoneb 0.5 mg-3 mg/3 ml Soln] 3 ml INHALATION RT-QID each 10/22/23 [Rx] Pantoprazole [Protonix] 40 mg PO DAILY #30 tab 10/22/23 [Rx] Follow up Appointment(s)/Referral(s): Priyank Mcnulty DO [Primary Care Provider] - 1-2 days Raymon Montero [NON-STAFF] - 1 Week Wan Thorne MD [STAFF PHYSICIAN] - 1 Week Ambulatory/Diagnostic Orders: Basic Metabolic Panel [LAB.AMB] Location: None Selected Complete Blood Count w/diff [LAB.AMB] Time Frame: 3 Days, Location: None Selected Activity/Diet/Wound Care/Special Instructions: Recommend to continue 7 days of oral augmentin therapy Patient needs encouragement to continue IS 10 x an hour while awake Patient to continue cipro eye gtts for 7 days on discharge as recommended. Continue barrier paste to the stage 2 on his buttock and recommend pressure off loading and frequent repositioning. Diet has been advanced to low fiber. Recommend to continue with aspiration precautions and supervision along with head of the bed elevated 30 to 45 degrees at all times Discharge Disposition: TRANSFER TO SNF/ECF
--- NOTE | 2023-10-26 14:04 | CDI ---
Documentation Clarification Form Date: 10/26/2023 From: Lucien Stearns, [place], RN Phone: [phone] Admit Date: 10/12/2023 10:55:00 PM Patient Name: Matthieu Baird V Visit Number: [id number] Discharge Date: 10/22/2023 06:57:00 PM ATTENTION: The Clinical Documentation Specialists (CDI) and [facility] Coding Staff appreciate your assistance in clarifying documentation. Please respond to the clarification below the line at the bottom and electronically sign. The CDI & [facility] Coding staff will review the response and follow-up if needed. Please note: Queries are made part of the Legal Health Record. If you have any questions, please contact the author of this message via ITS. Dr. Subramanian Patient is evaluated today resting in bed. He appears to have intermittent episodes of myoclonic jerking and has had increasing confusion over the last few days. He is up in the chair for evaluation lethargic but easily arousable was documented in the progress note on 10/20. Additional clarification is requested regarding the etiology of the confusion. History/Risk Factors: 68 yo male admitted with ruptured appendicitis s/p open appendectomy. PMH Parkinsons disease, DM, THN, RONNELL, anxiety (Medical Consult Note 10/14). Clinical Indicators: ED note 10/12 Caregiver states that the patient has been confused today, he has been having confused conversation and staring off while doing things like attempting to feed himself. Review of systems somewhat limited due to the patient's mental status. GSC 5, flat affect A&Ox3 Medical consult 10/14 A&Ox2-3 Medical PN 10/15 Increasing confusion was documented in the ED note, H&P, and DS Patient is much more awake and alert today PN 10/17 Mentation and alertness is improved was documented in the PN 10/19, 10/20 He remains confused alert x 2 at this time. (PN 10/21) Sodium noted to be slightly elevated at 146, will transition to D5 NS and follow labs. (Medical PN 10/15). WBC results per EMR 10/12-10/20 11.3, 10.9, 10.3, 9.69, 12.19, 11.2, 10.35, 9.08, 10.31, 10.4 Na results per EMR 10/12-10/20 134, 138, 146, 139, 137, 141, 137 CT brain/cspine 10/12 results per EMR no acute fx, no acute hemorrhage, mass or midline shift Treatment: Zosyn 3.375 gm IVPB q8h 10/12-10/02 IM consulted for medical management on 10/13 CT brain ordered 10/12 indication pt fell, didnt hit head, no LOC Please clarify the etiology of the Confusion: [ x ] Metabolic encephalopathy [ ] Acute Delirium [ ] Age related cognitive decline [ ] Acute confusion with unknown etiology [ ] Other condition (please specify) [ ] Unable to determine MTDD
== END 2023-10-22 18:57 | DRG 397 ==
LOC: EC 19:24 → 5NMEDONC 22:55
PROVIDERS: ADMIT Surgery; ATTEND Surgery
PROC: 0DTJ0ZZ Resection of Appendix, Open Approach (ICD-10-PCS; principal; 2023-10-12)
PROC: 0WJG4ZZ Inspection of Peritoneal Cavity, Percutaneous Endoscopic Approach (ICD-10-PCS; 2023-10-12)
DX: K35.33 Acute appendicitis with perforation, localized peritonitis, and gangrene, with abscess (principal); G93.41 Metabolic encephalopathy; E87.0 Hyperosmolality and hypernatremia; J98.11 Atelectasis; Z11.52 Encounter for screening for COVID-19; I10 Essential (primary) hypertension; G47.30 Sleep apnea, unspecified; G20.A1 Parkinson's disease without dyskinesia, without mention of fluctuations; E11.9 Type 2 diabetes mellitus without complications; R47.1 Dysarthria and anarthria; R26.9 Unspecified abnormalities of gait and mobility; H40.9 Unspecified glaucoma; G47.33 Obstructive sleep apnea (adult) (pediatric); F41.9 Anxiety disorder, unspecified; H10.9 Unspecified conjunctivitis; R13.10 Dysphagia, unspecified; R29.6 Repeated falls; W19.XXXA Unspecified fall, initial encounter; B34.9 Viral infection, unspecified; Z79.02 Long term (current) use of antithrombotics/antiplatelets; Z79.82 Long term (current) use of aspirin; Z79.899 Other long term (current) drug therapy; Z86.73 Personal history of transient ischemic attack (TIA), and cerebral infarction without residual deficits; Z88.5 Allergy status to narcotic agent; Z98.42 Cataract extraction status, left eye; Z98.41 Cataract extraction status, right eye
CPT/HCPCS: 36415; 70450; 71045; 72125; 74177; 80048; 80053; 81003; 83036; 83735; 84484; 85025; 85027; 85610; 85730; 86850; 86900; 86901; 86920; 87040; 87636; 88304; 93005; 94640; 94760; 96361; 96365; 99285

== ENCOUNTER 2023-10-24 18:55 | Inpatient (IN) | payer MEDICARE, BC ==
--- NOTE | 2023-10-24 19:08 | ED ---
Altered Mental Status HPI - General Source: EMS, RN notes reviewed, old records reviewed Mode of arrival: EMS - History of Present Illness MD Complaint: altered mental status, decreased responsiveness <Arsalan Ellison - Last Filed: 10/24/23 20:55> <Jw Jordan - Last Filed: 10/24/23 23:25> - General Stated Complaint: Altered Mental Status Time Seen by Provider: 10/24/23 18:57 - History of Present Illness Initial Comments: 68-year-old male with a history of dementia who recently had open abdominal surgery for ruptured appendix who is here from retirement today because of altered mental status decreased activity apparently has not been eating today has been sleeping most of the day this felt to be very warm per paramedics. He appears to be shivering. He is a poor historian no recent falls he still has drains and vikash residual from the recent surgery. Patient is here for evaluation from his retirement. (Arsalan Ellison) - Related Data Home Medications Medication Instructions Recorded Confirmed Aspirin EC [Ecotrin Low Dose] 81 mg PO DAILY 01/09/22 10/12/23 Meclizine HCl 25 mg PO HS 01/09/22 10/12/23 Vit C/E/Zn/Coppr/Lutein/Zeaxan 1 cap PO BID 01/09/22 10/12/23 [Preservision Areds 2 Softgel] Carbidopa-Levodopa 25-100 mg 1 tab PO TID@0900,1400,1900 09/29/23 10/12/23 [Sinemet 25-100 mg] Escitalopram [Lexapro] 20 mg PO DAILY 10/12/23 10/12/23 Previous Rx's Medication Instructions Recorded Clopidogrel [Plavix] 75 mg PO DAILY tab 06/08/23 Acetaminophen Tab [Tylenol] 650 mg PO Q6HR PRN tab 10/22/23 Amoxic-Pot Clav 875-125Mg 1 tab PO Q12HR 7 Days #14 tab 10/22/23 [Augmentin 875-125] Ciprofloxacin Ophth Soln [Ciloxan 1 drops BOTH EYES Q4HR ml 10/22/23 0.3% Ophth Soln] Enoxaparin [Lovenox] 40 mg SQ DAILY each 10/22/23 INSULIN ASPART (NovoLOG) [NovoLOG 0 unit SQ ACHS each 10/22/23 (formulary)] Ipratropium-Albuterol Nebulize 3 ml INHALATION RT-QID each 10/22/23 [Duoneb 0.5 mg-3 mg/3 ml Soln] Pantoprazole [Protonix] 40 mg PO DAILY #30 tab 10/22/23 Allergies Allergy/AdvReac Type Severity Reaction Status Date / Time cephalexin Allergy Itching Verified 10/24/23 19:14 cockroach Allergy Unknown Verified 10/24/23 19:14 cyclobenzaprine Allergy Chest Pain Verified 10/24/23 19:14 morphine AdvReac Hallucinati Verified 10/24/23 19:14 ons Review of Systems ROS Other: All systems not noted in ROS Statement are negative. Limitations: ROS unobtainable due to patients medical condition <Arsalan Ellison - Last Filed: 10/24/23 20:55> ROS Other: All systems not noted in ROS Statement are negative. <Jw Jordan - Last Filed: 10/24/23 23:25> ROS Statement: Those systems with pertinent positive or pertinent negative responses have been documented in the HPI. Past Medical History Past Medical History: CVA/TIA, Diabetes Mellitus, Hypertension, Sleep Apnea/CPAP/BIPAP Additional Past Medical History / Comment(s): Parkinsons. diet controlled DM History of Any Multi-Drug Resistant Organisms: None Reported Past Surgical History: Hernia Repair Additional Past Surgical History / Comment(s): benign tumor removed lt lower jaw and artifical jaw inserted, cataract- bilat, sinus surgery, carpal tunnel surgery right wrist 1970's Past Anesthesia/Blood Transfusion Reactions: Motion Sickness Past Psychological History: Anxiety Smoking Status: Never smoker Past Alcohol Use History: None Reported Past Drug Use History: None Reported - Past Family History Father Family Medical History: Cancer, Diabetes Mellitus Mother Family Medical History: CVA/TIA <Arsalan Ellison - Last Filed: 10/24/23 20:55> General Exam Limitations: altered mental status General appearance: alert, in no apparent distress Head exam: Present: atraumatic, normocephalic, normal inspection Eye exam: Present: normal appearance, PERRL, EOMI. Absent: scleral icterus, conjunctival injection, periorbital swelling ENT exam: Present: mucous membranes dry Neck exam: Present: normal inspection, full ROM, other (No stridor JVD or bruits). Absent: tenderness, meningismus, lymphadenopathy Respiratory exam: Present: normal lung sounds bilaterally. Absent: respiratory distress, wheezes, rales, rhonchi, stridor Cardiovascular Exam: Present: regular rate, normal rhythm, normal heart sounds. Absent: systolic murmur, diastolic murmur, rubs, gallop, clicks GI/Abdominal exam: Present: soft, normal bowel sounds, other (Midline incision with staple line present with some erythema at the vikash consistent with tissue reaction no open wounds seen no drainage a bulb suction is in place serosanguineous appearing fluid.). Absent: distended, tenderness, guarding, rebound, rigid, bruit, pulsatile mass, hernia Extremities exam: Present: normal inspection, full ROM, normal capillary refill. Absent: tenderness, pedal edema, joint swelling, calf tenderness Back exam: Present: normal inspection Neurological exam: Present: alert, altered, CN II-XII intact Psychiatric exam: Present: normal affect, normal mood Skin exam: Present: warm, dry, intact, normal color. Absent: rash <Arsalan Ellison - Last Filed: 10/24/23 20:55> - General Exam Comments Initial Comments: Is a well-developed well-nourished awake male (Arsalan Ellison) Course Vital Signs 10/24/23 10/24/23 10/24/23 19:01 20:32 22:43 Temperature 99.7 F H 98.7 F Pulse Rate 78 75 73 Respiratory 18 18 18 Rate Blood Pressure 116/87 129/82 111/78 O2 Sat by Pulse 97 93 L 98 Oximetry Medical Decision Making - Lab Data Result diagrams: 10/24/23 20:30 - EKG Data -: EKG Interpreted by Tn <Arsalan Ellison - Last Filed: 10/24/23 20:55> - Lab Data Result diagrams: 10/24/23 20:30 10/24/23 20:30 <Jw Jordan - Last Filed: 10/24/23 23:25> - Medical Decision Making The patient's care is going to be endorsed to Dr. Jordan at her shift change pending lab work and imaging studies. Was pt. sent in by a medical professional or institution (, PA, MECHANICAL ENGINEERING DRAFTSPERSON, urgent care, hospital, or retirement...) When possible be specific @ -No Did you speak to anyone other than the patient for history (EMS, parent, family, police, friend...)? What history was obtained from this source @ -EMS personnel Did you review nursing and triage notes (agree or disagree)? Why? @ -I reviewed and agree with nursing and triage notes Were old charts reviewed (outside hosp., previous admission, EMS record, old EKG, old radiological studies, urgent care reports/EKG's, retirement records)? Report findings @ -Old charts were reviewed Differential Diagnosis (chest pain, altered mental status, abdominal pain women, abdominal pain men, vaginal bleeding, weakness, fever, dyspnea, syncope, headache, dizziness, GI bleed, back pain, seizure, CVA, palpatations, mental health, musculoskeletal)? @ -Altered mental status EKG interpreted by me (3pts min.). @ -As above EKG interpreted by me sinus rhythm at 82 parable 160 QRS duration 115 QT/QTc 403/442 borderline left axis deviation incomplete right bundle branch block no apparent acute ST-T wave changes X-rays interpreted by me (1pt min.). @ -None done CT interpreted by me (1pt min.). @ -None done U/S interpreted by me (1pt. min.). @ -None done What testing was considered but not performed or refused? (CT, X-rays, U/S, labs)? Why? @ -None What meds were considered but not given or refused? Why? @ -None Did you discuss the management of the patient with other professionals (professionals i.e. , PA, MECHANICAL ENGINEERING DRAFTSPERSON, lab, RT, psych nurse, rn social services, field irrigation worker, teacher, toxics program officer, case resource manager)? Give summary @ -No Was smoking cessation discussed for >3mins.? @ -No Was critical care preformed (if so, how long)? @ -No Were there social determinants of health that impacted care today? How? (Homelessness, low income, unemployed, alcoholism, drug addiction, tra nsportation, low edu. Level, literacy, decrease access to med. care, residential, rehab)? @ -No Was there de-escalation of care discussed even if they declined (Discuss DNR or withdrawal of care, Hospice)? DNR status @ -No What co-morbidities impacted this encounter? (DM, HTN, Smoking, COPD, CAD, Cancer, CVA, ARF, Chemo, Hep., AIDS, mental health diagnosis, sleep apnea, morbid obesity)? @ , Parkinson's disease, history of CVA/TIA, recent ruptured appendix with open exploratory laparotomy and 10/12/2023, hypertension, diabetes. Was patient admitted / discharged? Hospital course, mention meds given and route, prescriptions, significant lab abnormalities, going to OR and other pertinent info. @ -Hospital course Undiagnosed new problem with uncertain prognosis? @ -No Drug Therapy requiring intensive monitoring for toxicity (Heparin, Nitro, Insulin, Cardizem)? @ -No Were any procedures done? @ -No Diagnosis/symptom? @ -Default Acute, or Chronic, or Acute on Chronic? @ -Default Uncomplicated (without systemic symptoms) or Complicated (systemic symptoms)? @ -Default Side effects of treatment? @ -No Exacerbation, Progression, or Severe Exacerbation? @ -No Poses a threat to life or bodily function? How? (Chest pain, [place], VA, pneumonia, PE, COPD, DKA, ARF, appy, cholecystitis, CVA, Diverticulitis, Homicidal, Suicidal, threat to staff... and all critical care pts) @ -No (Arsalan Ellison) Patient signed out to me pending results of workup. Presents with altered mental status from his nursing facility. Typically he is able to hold a conversation but is been more lethargic and fatigued over the last 1 to 2 days. Recently had an appendectomy done by Dr. Huynh here. Has a BRADLEY drain in place. Has a history of Parkinson's. Patient seems cold and more tired. No fevers. Patient does have 1 bedsore that is stage II and unchanged. No coughing. Presented for further evaluation. Workup remarkable for labs that showed mild elevated lipase of 640. Troponin is undetectable. Remainder the laboratory studies unremarkable including normal ammonia, normal lactic acid. Viral swabs negative. Urine negative. No leukocytosis at this time. X-rays were interpreted by myself. Chest x-ray shows no obvious acute cardiopulmonary process. KUB x-ray reveals no obvious acute process other than BRADLEY drain which appears to be in place. CT imaging interpreted by myself as revealing no obvious acute intracranial process. Patient has fluid accumulation at the site of the appendectomy but has a draining BRADLEY drain of serosanguineous fluid. Appears to be functioning as intended. Patient was symptomatically treated with IV fluids and empiric dose of Zosyn. Cultures still pending at this time. I discussed results with the patient's family who is at bedside. He will be admitted for altered mental status and I will consult surgery for evaluation of his BRADLEY drain which appears to be functioning normally. They were in agreement this plan. Neurology will be consulted for altered mental status. I spoke with the admitting physician, Dr. Osborn of [facility] who accepted the admission. Diagnosis/symptom? @ -Altered mental status, dehydration Acute, or Chronic, or Acute on Chronic? @ -Acute Uncomplicated (without systemic symptoms) or Complicated (systemic symptoms)? @ -Complicated Side effects of treatment? @ -None Exacerbation, Progression, or Severe Exacerbation] @ -No Poses a threat to life or bodily function? @ -Yes (Jw Jordan) - Lab Data Lab Results 10/24/23 10/24/23 10/24/23 Range/Units 20:30 20:30 20:30 WBC 10.0 (3.8-10.6) k/uL RBC 4.06 L (4.30-5.90) m/uL Hgb 11.8 L (13.0-17.5) gm/dL Hct 35.7 L (39.0-53.0) % MCV 87.8 (80.0-100.0) fL MCH 29.2 (25.0-35.0) pg MCHC 33.2 (31.0-37.0) g/dL RDW 12.8 (11.5-15.5) % Plt Count 503 H (150-450) k/uL MPV 6.8 Neutrophils % 73 % Lymphocytes % 16 % Monocytes % 6 % Eosinophils % 2 % Basophils % 1 % Neutrophils # 7.3 (1.3-7.7) k/uL Lymphocytes # 1.6 (1.0-4.8) k/uL Monocytes # 0.6 (0-1.0) k/uL Eosinophils # 0.2 (0-0.7) k/uL Basophils # 0.1 (0-0.2) k/uL Sodium 137 (137-145) mmol/L Potassium 4.3 (3.5-5.1) mmol/L Chloride 103 (98-107) mmol/L Carbon Dioxide 28 (22-30) mmol/L Anion Gap 6 mmol/L BUN 23 H (9-20) mg/dL Creatinine 1.02 (0.66-1.25) mg/dL Est GFR (CKD-EPI)AfAm 86 (>60 ml/min/1.73 sqM) Est GFR (CKD-EPI)NonAf 74 (>60 ml/min/1.73 sqM) Glucose 100 H (74-99) mg/dL POC Glucose (mg/dL) (70-110) mg/dL POC Glu Coppersmith Helper ID Plasma Lactic Acid Ibrahima (0.7-2.0) mmol/L Calcium 8.5 (8.4-10.2) mg/dL Magnesium 2.1 (1.6-2.3) mg/dL Total Bilirubin 1.0 (0.2-1.3) mg/dL AST 42 (17-59) U/L ALT 37 (4-49) U/L Alkaline Phosphatase 85 (38-126) U/L Ammonia 13 (<30) umol/L Creatine Kinase 72 (55-170) U/L Troponin I (0.000-0.034) ng/mL Total Protein 6.3 (6.3-8.2) g/dL Albumin 3.3 L (3.5-5.0) g/dL Lipase 640 H (23-300) U/L Urine Color Urine Appearance (Clear) Urine pH (5.0-8.0) Ur Specific Duarte (1.001-1.035) Urine Protein (Negative) Urine Glucose (UA) (Negative) Urine Ketones (Negative) Urine Blood (Negative) Urine Nitrite (Negative) Urine Bilirubin (Negative) Urine Urobilinogen (<2.0) mg/dL Ur Leukocyte Esterase (Negative) Influenza Type A (PCR) (Not Detectd) Influenza Type B (PCR) (Not Detectd) RSV (PCR) (Not Detectd) SARS-CoV-2 (PCR) (Not Detectd) 10/24/23 10/24/23 10/24/23 Range/Units 20:30 21:44 21:52 WBC (3.8-10.6) k/uL RBC (4.30-5.90) m/uL Hgb (13.0-17.5) gm/dL Hct (39.0-53.0) % MCV (80.0-100.0) fL MCH (25.0-35.0) pg MCHC (31.0-37.0) g/dL RDW (11.5-15.5) % Plt Count (150-450) k/uL MPV Neutrophils % % Lymphocytes % % Monocytes % % Eosinophils % % Basophils % % Neutrophils # (1.3-7.7) k/uL Lymphocytes # (1.0-4.8) k/uL Monocytes # (0-1.0) k/uL Eosinophils # (0-0.7) k/uL Basophils # (0-0.2) k/uL Sodium (137-145) mmol/L Potassium (3.5-5.1) mmol/L Chloride (98-107) mmol/L Carbon Dioxide (22-30) mmol/L Anion Gap mmol/L BUN (9-20) mg/dL Creatinine (0.66-1.25) mg/dL Est GFR (CKD-EPI)AfAm (>60 ml/min/1.73 sqM) Est GFR (CKD-EPI)NonAf (>60 ml/min/1.73 sqM) Glucose (74-99) mg/dL POC Glucose (mg/dL) (70-110) mg/dL POC Glu Coppersmith Helper ID Plasma Lactic Acid Ibrahima (0.7-2.0) mmol/L Calcium (8.4-10.2) mg/dL Magnesium (1.6-2.3) mg/dL Total Bilirubin (0.2-1.3) mg/dL AST (17-59) U/L ALT (4-49) U/L Alkaline Phosphatase (38-126) U/L Ammonia (<30) umol/L Creatine Kinase (55-170) U/L Troponin I <0.012 (0.000-0.034) ng/mL Total Protein (6.3-8.2) g/dL Albumin (3.5-5.0) g/dL Lipase (23-300) U/L Urine Color Yellow Urine Appearance Clear (Clear) Urine pH 6.0 (5.0-8.0) Ur Specific Duarte 1.023 (1.001-1.035) Urine Protein Negative (Negative) Urine Glucose (UA) Negative (Negative) Urine Ketones Negative (Negative) Urine Blood Negative (Negative) Urine Nitrite Negative (Negative) Urine Bilirubin Negative (Negative) Urine Urobilinogen 3.0 (<2.0) mg/dL Ur Leukocyte Esterase Negative (Negative) Influenza Type A (PCR) Not Detected (Not Detectd) Influenza Type B (PCR) Not Detected (Not Detectd) RSV (PCR) Not Detected (Not Detectd) SARS-CoV-2 (PCR) Not Detected (Not Detectd) 10/24/23 10/24/23 Range/Units 22:45 22:52 WBC (3.8-10.6) k/uL RBC (4.30-5.90) m/uL Hgb (13.0-17.5) gm/dL Hct (39.0-53.0) % MCV (80.0-100.0) fL MCH (25.0-35.0) pg MCHC (31.0-37.0) g/dL RDW (11.5-15.5) % Plt Count (150-450) k/uL MPV Neutrophils % % Lymphocytes % % Monocytes % % Eosinophils % % Basophils % % Neutrophils # (1.3-7.7) k/uL Lymphocytes # (1.0-4.8) k/uL Monocytes # (0-1.0) k/uL Eosinophils # (0-0.7) k/uL Basophils # (0-0.2) k/uL Sodium (137-145) mmol/L Potassium (3.5-5.1) mmol/L Chloride (98-107) mmol/L Carbon Dioxide (22-30) mmol/L Anion Gap mmol/L BUN (9-20) mg/dL Creatinine (0.66-1.25) mg/dL Est GFR (CKD-EPI)AfAm (>60 ml/min/1.73 sqM) Est GFR (CKD-EPI)NonAf (>60 ml/min/1.73 sqM) Glucose (74-99) mg/dL POC Glucose (mg/dL) 89 (70-110) mg/dL POC Glu Coppersmith Helper ID Marlen Baez Plasma Lactic Acid Ibrahima 0.8 (0.7-2.0) mmol/L Calcium (8.4-10.2) mg/dL Magnesium (1.6-2.3) mg/dL Total Bilirubin (0.2-1.3) mg/dL AST (17-59) U/L ALT (4-49) U/L Alkaline Phosphatase (38-126) U/L Ammonia (<30) umol/L Creatine Kinase (55-170) U/L Troponin I (0.000-0.034) ng/mL Total Protein (6.3-8.2) g/dL Albumin (3.5-5.0) g/dL Lipase (23-300) U/L Urine Color Urine Appearance (Clear) Urine pH (5.0-8.0) Ur Specific Duarte (1.001-1.035) Urine Protein (Negative) Urine Glucose (UA) (Negative) Urine Ketones (Negative) Urine Blood (Negative) Urine Nitrite (Negative) Urine Bilirubin (Negative) Urine Urobilinogen (<2.0) mg/dL Ur Leukocyte Esterase (Negative) Influenza Type A (PCR) (Not Detectd) Influenza Type B (PCR) (Not Detectd) RSV (PCR) (Not Detectd) SARS-CoV-2 (PCR) (Not Detectd) - EKG Data EKG Comments: EKG interpreted by me sinus rhythm of 82 IL interval 160 QRS duration 115 QT/QTc 403/442 borderline left axis deviation incomplete right bundle branch block no acute ST-T wave changes seen (Arsalan Ellison) Disposition <Arsalan Ellison - Last Filed: 10/24/23 20:55> Time of Disposition: 23:01 <Jw Jordan - Last Filed: 10/24/23 23:25> Clinical Impression: AMS (altered mental status), Dehydration Disposition: ADMITTED IP TO THIS HOSP Condition: Stable
--- NOTE | 2023-10-24 20:23 | XR ---
EXAMINATION TYPE: XR KUB DATE OF EXAM: 10/24/2023 8:06 PM CLINICAL INDICATION:Male, 68 years old with history of Postop fever; COMPARISON: None. TECHNIQUE: One radiographic view of the abdomen was obtained. FINDINGS: Nonobstructive bowel gas pattern. Skin vikash are seen projecting over the abdomen.. Moder ate amount of stool in the rectum. Drainage catheter projects over the lower abdomen. IMPRESSION: 1. Evidence of prior appendectomy with drainage catheter in place. 2. Nonobstructive bowel gas pattern. 3. Moderate amount stool in the rectum.
--- NOTE | 2023-10-24 20:30 | XR ---
EXAMINATION TYPE: XR chest 1V DATE OF EXAM: 10/24/2023 8:06 PM CLINICAL INDICATION:Male, 68 years old with history of Postop fever; H COMPARISON: Chest radiographs from 10/19/2023 TECHNIQUE: XR chest 1V Frontal view of the chest. FINDINGS: Lungs/Pleura: There is no evidence of pleural effusion, focal consolidation, or pneumothorax. Pulmonary vascularity: Unremarkable. Heart/mediastinum: Cardiomediastinal silhouette is unremarkable. Musculoskeletal: No acute osseous pathology. IMPRESSION: No acute cardiopulmonary disease/process.
[2023-10-24 20:44] LABS: Basophils # (A) 0.1 k/uL (0-0.2); Basophils % (A) 1 %; Eosinophils # (A) 0.2 k/uL (0-0.7); Eosinophils % (A) 2 %; HCT 35.7 % (39.0-53.0); HGB 11.8 gm/dL (13.0-17.5); Lymphocytes # (A) 1.6 k/uL (1.0-4.8); Lymphocytes % (A) 16 %; MCH 29.2 pg (25.0-35.0); MCHC 33.2 g/dL (31.0-37.0); MCV 87.8 fL (80.0-100.0); Mean Platelet Volume 6.8; Monocytes # (A) 0.6 k/uL (0-1.0); Monocytes % (A) 6 %; Neutrophils # (A) 7.3 k/uL (1.3-7.7); Neutrophils % (A) 73 %; Platelet Count 503 k/uL (150-450); RBC 4.06 m/uL (4.30-5.90); RDW 12.8 % (11.5-15.5)
[2023-10-24 20:55] LABS: ALT 37 U/L (4-49); AST 42 U/L (17-59); African American GFR (CKD) 86 (>60 ml/min/1.73 sqM); Albumin 3.3 g/dL (3.5-5.0); Alkaline Phosphatase 85 U/L (38-126); Anion Gap 6 mmol/L; Blood Urea Nitrogen 23 mg/dL (9-20); Calcium 8.5 mg/dL (8.4-10.2); Carbon Dioxide 28 mmol/L (22-30); Chloride 103 mmol/L (98-107); Creatine Kinase 72 U/L (55-170); Glucose 100 mg/dL (74-99); Lipase 640 U/L (23-300); Magnesium 2.1 mg/dL (1.6-2.3); Non-African American GFR(CKD) 74 (>60 ml/min/1.73 sqM); Potassium 4.3 mmol/L (3.5-5.1); Sodium 137 mmol/L (137-145); Total Protein 6.3 g/dL (6.3-8.2)
[2023-10-24 22:11] LABS: Appearance,Urine Clear (Clear); Bilirubin,Urine Negative (Negative); Blood,Urine Negative (Negative); Color,Urine Yellow; Glucose,Urine (UA) Negative (Negative); Ketones,Urine Negative (Negative); Leukocyte Esterase,Urine Negative (Negative); Nitrite,Urine Negative (Negative); Protein,Urine Negative (Negative); Specific Gravity,Urine 1.023 (1.001-1.035)
[2023-10-24] MEDS: SODIUM CHLORIDE 0.9% 1,000 ML IV STA (22:42)
--- NOTE | 2023-10-24 22:43 | CT ---
EXAM: CT Abdomen and Pelvis With Intravenous Contrast CLINICAL HISTORY: ITS.REASON CT Reason: Abdominal pain, acute, nonlocalized TECHNIQUE: Axial computed tomography images of the abdomen and pelvis with intravenous contrast. CTDI is 28.3 mGy and DLP is 1490.1 mGy-cm. This CT exam was performed using one or more of the following dose reduction techniques: automated exposure control, adjustment of the mA and/or kV according to patient size, and/or use of iterative reconstruction technique. COMPARISON: CT abdomen pelvis 10/12/2023 FINDINGS: ABDOMEN: Liver: Unremarkable. Gallbladder and bile ducts: Unremarkable. Pancreas: Unremarkable. Spleen: Unremarkable. Adrenals: Unremarkable. Kidneys and ureters: Unremarkable. No obstructing stones. No hydronephrosis. Stomach and bowel: Unremarkable. PELVIS: Appendix: Fluid collection within the appendectomy bed. Measures approximately 3.8 x 3.4 x 5.5 cm. The surgical drain appears to traverse the collection. Correlate with drain output. Status post appendectomy. Bladder: Unremarkable. Reproductive: Unremarkable as visualized. ABDOMEN and PELVIS: Intraperitoneal space: Unremarkable. No free air. No significant fluid collection. Bones/joints: No acute fracture. Soft tissues: Unremarkable. Vasculature: Unremarkable. Lymph nodes: Unremarkable. IMPRESSION: Fluid collection within the appendectomy bed. Measures approximately 3. 8 x 3.4 x 5.5 cm. The surgical drain appears to traverse the collection. Correlate with drain output.
--- NOTE | 2023-10-24 22:43 | CT ---
EXAM: CT Head Without Intravenous Contrast CLINICAL HISTORY: ITS.REASON CT Reason: ams TECHNIQUE: Axial computed tomography images of the head/brain without intravenous contrast. CTDI is 49.1 mGy and DLP is 1140.4 mGy-cm. This CT exam was performed using one or more of the following dose reduction techniques: automated exposure control, adjustment of the mA and/or kV according to patient size, and/or use of iterative reconstruction technique. COMPARISON: Head CT 10/12/2023 FINDINGS: Brain: No hemorrhage, extra-axial fluid collection, mass effect, or edema. Ventricles: Unremarkable. Bones/joints: Unremarkable. No fracture. Soft tissues: Unremarkable. Sinuses: No acute sinusitis. Mastoid air cells: Unremarkable as visualized. IMPRESSION: 1. No acute intracranial abnormality.
[2023-10-24 22:56] LABS: Glucose,Whole Blood 89 mg/dL (70-110)
[2023-10-24] MEDS ORDERED: NALOXONE 0.4 MG/ML 1 ML VIAL IV PRN (23:07)
[2023-10-24] MEDS: PIPERACILLIN-TAZOBACTAM 3.375 GM in SODIUM CHLORIDE 0.9% 100 ML IVPB STA (23:42)
[2023-10-25] MEDS: SODIUM CHLORIDE 0.9% 1,000 ML IV SCH (00:33)
[2023-10-25 08:35] LABS: Basophils # (A) 0.1 k/uL (0-0.2); Basophils % (A) 1 %; Eosinophils # (A) 0.2 k/uL (0-0.7); Eosinophils % (A) 2 %; HCT 35.4 % (39.0-53.0); HGB 11.6 gm/dL (13.0-17.5); Lymphocytes % (A) 12 %; MCH 29.1 pg (25.0-35.0); MCHC 32.9 g/dL (31.0-37.0); MCV 88.5 fL (80.0-100.0); Mean Platelet Volume 7.2; Monocytes # (A) 0.5 k/uL (0-1.0); Monocytes % (A) 6 %; Neutrophils # (A) 6.6 k/uL (1.3-7.7); Neutrophils % (A) 77 %; Platelet Count 480 k/uL (150-450); RDW 12.9 % (11.5-15.5); WBC 8.6 k/uL (3.8-10.6)
[2023-10-25 08:52] LABS: African American GFR (CKD) 83 (>60 ml/min/1.73 sqM); Anion Gap 8 mmol/L; Blood Urea Nitrogen 18 mg/dL (9-20); Calcium 8.4 mg/dL (8.4-10.2); Carbon Dioxide 25 mmol/L (22-30); Chloride 105 mmol/L (98-107); Glucose 97 mg/dL (74-99); Non-African American GFR(CKD) 72 (>60 ml/min/1.73 sqM); Potassium 4.5 mmol/L (3.5-5.1); Sodium 138 mmol/L (137-145)
--- NOTE | 2023-10-25 11:00 | P.CNNES ---
History of Present Illness Consult date: 10/25/23 Requesting physician: Jw Jordan Reason for Consult: ams History of Present Illness: This is a 68-year-old gentleman with history of dementia who had a recent open abdominal surgery for ruptured appendix and then was discharged to the more distant facility and while there he had altered mental status. History is obtained from medical record as well as the patient's nurse. He has not been eating and has been sleeping most of the day per the ED note. Per the ED note it seems that the patient felt very warm per the real estate representative and he is been shivering. He continues to have the drains and vikash residual from recent surgery. Some of the work-up during this hospital visit consisted of: Initial temp is 99.7 on initial presentation but otherwise normal. wbc is normal range. Initial loss serum glucose is 100, sodium, creatinine, calcium, AST ALT are within normal limits Ammonia is 13 Lipase is 640 u/a is negative for acute uti. CT of the head is reported as no acute intracranial abnormality. I personally reviewed the CT and agree with the report CT abdomen/pelvis: It is reported as fluid collection within the appendectomy bed. Measures approximately 3 x 8 x 3.4 x 5.5 cm. The surgical drain appears to the transverse the collection. Correlate with the drain output. Review of Systems Limited but the positive and negative as per HPI. 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 diet controlled DM History of Any Multi-Drug Resistant Organisms: None Reported Past Surgical History: Hernia Repair Additional Past Surgical History / Comment(s): benign tumor removed lt lower jaw and artifical jaw inserted, cataract- bilat, sinus surgery, carpal tunnel surgery right wrist 1969' Past Anesthesia/Blood Transfusion Reactions: Motion Sickness Past Psychological History: Anxiety Smoking Status: Never smoker Past Alcohol Use History: None Reported Past Drug Use History: None Reported - Past Family History Father Family Medical History: Cancer, Diabetes Mellitus Mother Family Medical History: CVA/TIA Medications and Allergies Home Medications Medication Instructions Recorded Confirmed Type Aspirin EC [Ecotrin Low Dose] 81 mg PO DAILY 01/09/22 10/12/23 History Meclizine HCl 25 mg PO HS 01/09/22 10/12/23 History Vit C/E/Zn/Coppr/Lutein/Zeaxan 1 cap PO BID 01/09/22 10/12/23 History [Preservision Areds 2 Softgel] Clopidogrel [Plavix] 75 mg PO DAILY tab 06/08/23 10/12/23 Rx Carbidopa-Levodopa 25-100 mg 1 tab PO TID@0900,1400,1900 09/29/23 10/12/23 History [Sinemet 25-100 mg] Escitalopram [Lexapro] 20 mg PO DAILY 10/12/23 10/12/23 History Acetaminophen Tab [Tylenol] 650 mg PO Q6HR PRN tab 10/22/23 Rx Amoxic-Pot Clav 875-125Mg 1 tab PO Q12HR 7 Days #14 tab 10/22/23 Rx [Augmentin 875-125] Ciprofloxacin Ophth Soln [Ciloxan 1 drops BOTH EYES Q4HR ml 10/22/23 Rx 0.3% Ophth Soln] Enoxaparin [Lovenox] 40 mg SQ DAILY each 10/22/23 Rx INSULIN ASPART (NovoLOG) [NovoLOG 0 unit SQ ACHS each 10/22/23 Rx (formulary)] Ipratropium-Albuterol Nebulize 3 ml INHALATION RT-QID each 10/22/23 Rx [Duoneb 0.5 mg-3 mg/3 ml Soln] Pantoprazole [Protonix] 40 mg PO DAILY #30 tab 10/22/23 Rx Allergies Allergy/AdvReac Type Severity Reaction Status Date / Time cephalexin Allergy Itching Verified 10/24/23 19:14 cockroach Allergy Unknown Verified 10/24/23 19:14 cyclobenzaprine Allergy Chest Pain Verified 10/24/23 19:14 morphine AdvReac Hallucinati Verified 10/24/23 19:14 ons Physical Examination - Vital Signs Vital Signs: Vital Signs Temp Pulse Resp BP Pulse Ox 10/25/23 08:11 98.6 F 77 22 126/99 96 10/25/23 00:28 98.4 F 77 16 116/72 95 10/24/23 22:43 73 18 111/78 98 10/24/23 20:32 98.7 F 75 18 129/82 93 L 10/24/23 19:01 99.7 F H 78 18 116/87 97 Intake and Output 10/24/23 10/25/23 10/25/23 22:59 06:59 14:59 Other: Weight 111.13 kg General: This is a pleasant gentleman, lying in bed and does not appear in acute distress. Abdo: Has BRADLEY drain. Neuro: Limited. Patient is oriented to self as well as place. He is very slow lot responding to questions and following commands. He stated the year is 2003. He is able to follow a few simple commands. Language is limited The pupils are round equal reactive to light. Pupils are round 34 millimeter bilaterally. Visual flores is unable to assess because of cooperation. Even extraocular movement he would not cooperate. No facial weakness. He'll smile is seems symmetrical. No dysarthria from limited the language. He is hypophonic that's mild to moderate. Motor: The strength is somewhat limited because his cooperation but he's able to lift of bilateral upper extremity equally of and there is no appreciable focal deficit in the upper extremity I feel the upper extremity are 5 minus bilaterally. While lower there is very limitation because of his cooperation by feel at multiple times he appears to have left lower proximal weakness compared to the right. Distally he seems equal. Sensation is unable to assess Reflex: uppers are 1-2+ while lowers are 1+. Plantars: Mute bilaterally. Results - Laboratory Findings CBC and BMP: 10/25/23 07:38 10/25/23 07:38 Abnormal Lab Findings: Abnormal Labs 10/24/23 10/24/23 10/25/23 20:30 20:30 07:38 RBC 4.06 L 4.00 L Hgb 11.8 L 11.6 L Hct 35.7 L 35.4 L Plt Count 503 H 480 H BUN 23 H Glucose 100 H Albumin 3.3 L Lipase 640 H Assessment and Plan Assessment: This is a 68-year-old gentleman with history of dementia who had a recent open abdominal surgery for ruptured appendix and was discharged to [facility] nursing facility. There he was altered not eating and sleeping most of the day. He had minimal low-grade fever on presentation and that the white blood cell is normal. Also has elevated lipase Examination I felt he had left lower extremity weakness. Altered mentis as seems delirium due to the recent surgery being in a new facility rule out any abdominal infection. Left lower extremity weakness on examination, not sure if this is new or old. Underlying history of dementia Recent history of ruptured appendix status post abdominal surgery Plan: I ordered the TSH, vitamin B-12, folate. I ordered CT lumbar to assess if he has significant stenosis contributing to his weakness in the left lower. If that's negative and on tomorrow exam, continued to have left lower extremity weakness then I would recommend further imaging such as MRI of the brain. I will hold off routine EEG but if continues to be confused recommend a routine EEG. I consulted the ID for his low-grade fever. We'll defer the rest of the medical measure the primary and other specialists The plan discussed with the patient's nurse Thank you consultation Dr. Betancur will resume neurology service tomorrow A.M. Time with Patient: Greater than 30
--- NOTE | 2023-10-25 12:11 | CT ---
EXAMINATION TYPE: CT lumbar spine wo con CT DLP: 1063.7 mGycm, Automated exposure control for dose reduction was used. DATE OF EXAM: 10/25/2023 11:56 AM COMPARISON: 10/24/2023.. CLINICAL INDICATION:Male, 68 years old with history of left leg weakness; PHH, Left leg weakness TECHNIQUE: Multiple axial images were obtained from the midportion of T11 through the sacroiliac merle nts. Soft tissue and bone windows in coronal and sagittal planes were obtained and reviewed. 3-D ref ormats of the bones were created on a separate workstation and submitted for review. Contrast used: mL of , (None, if empty). Oral contrast used: (None, if empty). FINDINGS: Alignment: There are 5 lumbar type vertebral bodies. There is grade 1 anterolisthesis of L5 on S1. Bi lateral spondylolysis.. Bone: Multilevel degeneration changes with facet osteophyte formation, disc space narrowing and face t arthropathy. Bilateral spondylolysis at L5. There is pseudarthrosis of the spinous processes. Discs: T12-L1: Facet joint arthropathy and disc bulging result with mild spinal canal stenosis and mild bila teral neural foraminal stenosis. L1-L2: Facet joint arthropathy and disc bulging result with mild spinal canal stenosis and mild bilat eral neural foraminal stenosis. L2-L3: Facet joint arthropathy, osteophytes and disc bulging result in mild spinal canal stenosis and moderate bilateral neural foraminal stenosis. L3-L4: Facet joint arthropathy, osteophytes and disc bulging result in mild to moderate spinal canal stenosis and moderate bilateral neural foraminal stenosis. L4-L5: Facet joint arthropathy and disc bulging result with mild spinal canal stenosis and moderate b ilateral neural foraminal stenosis. L5-S1: Grade 1 anterolisthesis with disc uncovering, Facet joint arthropathy, osteophytes and disc bu lging result in mild spinal canal stenosis and mil severe d bilateral neural foraminal stenosis. Other: Drainage catheter transverses the low abdomen. No organizing fluid collection along its course . There is phlegmonous change superior to this. Multiple surgical clips series 202 image 52 measuring 38 x 29 mm , previously 42 x 33 mm IMPRESSION: 1. Grade 1 anterolisthesis with L5 on S1 with bilateral spondylolysis. There is severe bilateral lizbeth ral foraminal stenosis. 2. Drainage catheter courses to the lower abdomen. A area of phlegmonous change and surgical clips a re seen in the more superior aspect of the abdomen with a drainage catheter. This appears slightly sm aller from 10/24/2023. 3. Moderate degeneration changes throughout the spine.
[2023-10-25] MEDS: PIPERACILLIN-TAZOBACTAM 3.375 GM in SODIUM CHLORIDE 0.9% 100 ML IVPB SCH (12:31)
[2023-10-25] MEDS ORDERED: PIPERACILLIN-TAZOBACTAM 3.375 GM in SODIUM CHLORIDE 0.9% 100 ML IVPB SCH (16:00)
--- NOTE | 2023-10-25 16:39 | P.GSCN ---
History of Present Illness Consult date: 10/25/23 Reason for Consult: Recent surgery History of present illness: CHIEF COMPLAINT: Altered mental status HISTORY OF PRESENT ILLNESS: The patient is a 68-year-old male was recent discharged less than 24 for 48 hours ago following perforated appendicitis status post appendectomy. Patient was at correction and then sent back due to altered mental status changes including violent behavior. Since readmission, patient denies abdominal pain. He is tolerating regular diet. PAST MEDICAL HISTORY: See list and reviewed PAST SURGICAL HISTORY: See list and reviewed MEDICATIONS: See list and reviewed ALLERGIES: See list and reviewed SOCIAL HISTORY: See list and reviewed FAMILY HISTORY: See list and reviewed REVIEW OF ORGAN SYSTEMS: CONSTITUTIONAL: No fevers or chills. No recent weight loss. Obesity due to excess calories, BMI 34.2 EYES: Denies any trouble with vision. No glasses. HEENT: No difficulties with hearing. No nosebleeds. No difficulty swallowing. RESPIRATORY: Has obstructive sleep apnea. CARDIOVASCULAR: Denies any chest pain, palpitations, or recent heart attacks. Has coronary artery disease. GASTROINTESTINAL: Has gastroesophageal reflux disease. GENITOURINARY: Denies any blood in urine or increased urinary frequency. NEUROLOGICAL: Has Parkinson's dementia. History of cerebrovascular accident MUSCULOSKELETAL: Has back pain, stiffness or joint arthritis. SKIN: No current skin cancer. No rash. PSYCHIATRIC: Has Parkinson's dementia. Has depressive disorder. Has anxiety disorder. ENDOCRINE: Denies current thyroid disorders. Has diabetes type 2, insulin- dependent HEME/LYMPHATIC: Denies any lumps and bumps around the neck. No recent deep venous thrombosis. ALLERGY/IMMUNOLOGY: No immunoglobulin therapy. No immune deficiencies. BREAST: Denies current breast lumps, pain or nipple discharge. PHYSICAL EXAM: VITALS: Reviewed CONSTITUTIONAL: Well developed and in no acute distress. EYES: Conjuctivae without sclera icterus. Extraocular movements grossly intact. HEAD, EARS, NOSE, THROAT: Moist buccal mucosa. Head is atraumatic, normocephalic. Hears conversational speech. No nasal drainage. NECK: Supple. No JV distention. No thyroidomegaly. RESPIRATORY: Non-labored respirations and equal bilateral excursions. No gross wheezes. CARDIOVASCULAR: Palpable 2+ radial pulses. ABDOMEN: No peritonitis. BRADLEY drain intact. LYMPH: No neck lymphadenopathy. MUSCULOSKELETAL: No clubbing cyanosis or edema SKIN: Warm and well perfused with good skin turgor. NEUROLOGIC: Cranial nerves II through XII grossly intact. No focal or lateralizing signs. PSYCH: Alert to self. CLINCAL LABS: Reviewed. WBC within normal limits. IMAGING: Independently reviewed. CT of the abdomen pelvis independently reviewed demonstrates no moderate intra-abdominal fluid collection. No bowel obstruction. BRADLEY drain within the pelvis. This is my independent interpretation. CT brain reviewed demonstrates no intraparenchymal bleed. This is my independent interpretation. ASSESSMENT: 1. Altered mental status changes 2. Appendicitis status post appendectomy 3. Parkinson's dementia. 4. Coronary artery disease 4. History of cerebrovascular accident5. PLAN: 1. May have regular diet 2. No acute surgical intervention 3. Continue outpatient antibiotics ADVANCE DIRECTIVE: CODE STATUS in chart Thank you for this kind consultation. Past Medical History Past Medical History: CVA/TIA, Diabetes Mellitus, Hypertension, Sleep Apnea/CPAP/BIPAP Additional Past Medical History / Comment(s): Parkinsons. diet controlled DM History of Any Multi-Drug Resistant Organisms: None Reported Past Surgical History: Appendectomy, Hernia Repair Additional Past Surgical History / Comment(s): benign tumor removed lt lower jaw and artifical jaw inserted, cataract- bilat, sinus surgery, carpal tunnel surgery right wrist 1969', skin graft left leg, ruptured appendix Past Anesthesia/Blood Transfusion Reactions: Motion Sickness Past Psychological History: Anxiety Smoking Status: Never smoker Past Alcohol Use History: None Reported Past Drug Use History: None Reported - Past Family History Father Family Medical History: Cancer, Diabetes Mellitus Mother Family Medical History: CVA/TIA Medications and Allergies Home Medications Medication Instructions Recorded Confirmed Type Aspirin EC [Ecotrin Low Dose] 81 mg PO DAILY@0800 01/09/22 10/25/23 History Meclizine HCl 25 mg PO HS@2100 01/09/22 10/25/23 History Vit C/E/Zn/Coppr/Lutein/Zeaxan 1 cap PO BID@0800,1700 01/09/22 10/25/23 History [Preservision Areds 2 Softgel] Carbidopa-Levodopa 25-100 mg 1 tab PO TID@0800,1200,1700 09/29/23 10/25/23 History [Sinemet 25-100 mg] Escitalopram [Lexapro] 20 mg PO DAILY@0800 10/12/23 10/25/23 History Acetaminophen Tab [Tylenol] 650 mg PO Q6HR PRN tab 10/22/23 10/25/23 Rx Amoxic-Pot Clav 875-125Mg 1 tab PO Q12HR@0800,2100 10/25/23 10/25/23 History [Augmentin 875-125] Ciprofloxacin Ophth Soln [Ciloxan 2 drops BOTH EYES Q4HR 10/25/23 10/25/23 History 0.3% Ophth Soln] Clopidogrel [Plavix] 75 mg PO DAILY@0800 10/25/23 10/25/23 History Collagenase [Santyl Ointment] 1 applic TOPICAL DAILY 10/25/23 10/25/23 History Collagenase [Santyl Ointment] 1 applic TOPICAL DAILY PRN 10/25/23 10/25/23 History Enoxaparin [Lovenox] 40 mg SQ DAILY@0800 10/25/23 10/25/23 History Ensure Enlive 120 - 237 ml PO TID@0800,1200,1700 10/25/23 10/25/23 History INSULIN ASPART (NovoLOG) [NovoLOG See Protocol SQ 10/25/23 10/25/23 History (formulary)] ACHS@07,11,1630,2130 Ipratropium-Albuterol Nebulize 3 ml INHALATION RT-QID@00,06,12,18 10/25/23 10/25/23 History [Duoneb 0.5 mg-3 mg/3 ml Soln] Magnesium Hydroxide [Milk of 7,200 mg PO DAILY PRN 10/25/23 10/25/23 History Magnesia Concentrate] Na Phos,M-B/Na Phos,Di-Ba [Fleet 133 ml RECTAL DAILY PRN 10/25/23 10/25/23 History Adult] Pantoprazole [Protonix] 40 mg PO DAILY@0600 10/25/23 10/25/23 History bisacodyL [Dulcolax] 10 mg RECTAL DAILY PRN 10/25/23 10/25/23 History Allergies Allergy/AdvReac Type Severity Reaction Status Date / Time cephalexin Allergy Itching Verified 10/25/23 11:30 cockroach Allergy Unknown Verified 10/25/23 11:30 cyclobenzaprine Allergy Chest Pain Verified 03/03/24 11:30 morphine AdvReac Hallucinati Verified 10/25/23 11:30 ons Surgical - Exam Vital Signs Temp Pulse Resp BP Pulse Ox 99.7 F H 78 18 116/87 97 10/24/23 19:01 10/24/23 19:01 10/24/23 19:01 10/24/23 19:01 10/24/23 19:01 Results - Labs 10/25/23 07:38 10/25/23 07:38 Abnormal Lab Results - Last 24 Hours (Table) 10/24/23 10/24/23 10/25/23 Range/Units 20:30 20:30 07:38 RBC 4.06 L 4.00 L (4.30-5.90) m/uL Hgb 11.8 L 11.6 L (13.0-17.5) gm/dL Hct 35.7 L 35.4 L (39.0-53.0) % Plt Count 503 H 480 H (150-450) k/uL BUN 23 H (9-20) mg/dL Glucose 100 H (74-99) mg/dL Albumin 3.3 L (3.5-5.0) g/dL Lipase 640 H (23-300) U/L Diabetes panel 10/24/23 10/25/23 Range/Units 20:30 07:38 Sodium 137 138 (137-145) mmol/L Potassium 4.3 4.5 (3.5-5.1) mmol/L Chloride 103 105 (98-107) mmol/L Carbon Dioxide 28 25 (22-30) mmol/L BUN 23 H 18 (9-20) mg/dL Creatinine 1.02 1.05 (0.66-1.25) mg/dL Glucose 100 H 97 (74-99) mg/dL Calcium 8.5 8.4 (8.4-10.2) mg/dL AST 42 (17-59) U/L ALT 37 (4-49) U/L Alkaline Phosphatase 85 (38-126) U/L Total Protein 6.3 (6.3-8.2) g/dL Albumin 3.3 L (3.5-5.0) g/dL Thyroid panel 10/25/23 Range/Units 07:38 TSH 1.210 (0.465-4.680) mIU/L Calcium panel 10/24/23 10/25/23 Range/Units 20:30 07:38 Calcium 8.5 8.4 (8.4-10.2) mg/dL Albumin 3.3 L (3.5-5.0) g/dL Pituitary panel 10/24/23 10/25/23 10/25/23 Range/Units 20:30 07:38 07:38 Sodium 137 138 (137-145) mmol/L Potassium 4.3 4.5 (3.5-5.1) mmol/L Chloride 103 105 (98-107) mmol/L Carbon Dioxide 28 25 (22-30) mmol/L BUN 23 H 18 (9-20) mg/dL Creatinine 1.02 1.05 (0.66-1.25) mg/dL Glucose 100 H 97 (74-99) mg/dL Calcium 8.5 8.4 (8.4-10.2) mg/dL TSH 1.210 (0.465-4.680) mIU/L Adrenal panel 10/24/23 10/25/23 Range/Units 20:30 07:38 Sodium 137 138 (137-145) mmol/L Potassium 4.3 4.5 (3.5-5.1) mmol/L Chloride 103 105 (98-107) mmol/L Carbon Dioxide 28 25 (22-30) mmol/L BUN 23 H 18 (9-20) mg/dL Creatinine 1.02 1.05 (0.66-1.25) mg/dL Glucose 100 H 97 (74-99) mg/dL Calcium 8.5 8.4 (8.4-10.2) mg/dL Total Bilirubin 1.0 (0.2-1.3) mg/dL AST 42 (17-59) U/L ALT 37 (4-49) U/L Alkaline Phosphatase 85 (38-126) U/L Total Protein 6.3 (6.3-8.2) g/dL Albumin 3.3 L (3.5-5.0) g/dL
--- NOTE | 2023-10-25 21:42 | P.CONS ---
History of Present Illness - Reason for Consult Consult date: 10/25/23 Fever Requesting physician: Lenin Byers - Chief Complaint Mental status changes x 1 day - History of Present Illness Patient is a 68-year-old male with a past medical history significant for diabetes mellitus hypertension CVA TIA sleep apnea patient was recently admitted at this facility with a perforated appendicitis and this patient who is status post open appendectomy patient was in the hospital for almost 9 days and was just discharged to the intermediate on oral Augmentin there were no operative cultures patient has been brought back to the hospital last night because of mental status changes decreased activity apparently the patient has not been eating and has been sleeping most of the day and the patient was noted to be warm by the paramedics and also shivering with the symptoms the patient was brought into the hospital on arrival to the ER patient did have a temperature of 99.7 F patient was not tachycardic hypotensive or hypoxic he did have a white count of 10 creatinine 1.02 liver enzymes are normal urine has been negative influenza RSV COVID testing was negative patient did have a abdominal pelvis CT fluid collection within the appendectomy bed measuring 3.8 X3.4X 5.5 cm surgical drain appears to traverse the collection patient did receive a dose of Zosyn has been admitted to the hospital infectious disease was consulted for further management patient is currently slightly more awake and alert patient denies any headache or URI symptoms no chest pain shortness of breath or cough mild abdominal pain no radiation no diarrhea or urinary symptoms Review of Systems Positive point and negatives has been mentioned in the HPI, complete review of systems was performed and all other systems are negative Past Medical History Past Medical History: CVA/TIA, Diabetes Mellitus, Hypertension, Sleep Apnea/CPAP/BIPAP Additional Past Medical History / Comment(s): Parkinsons. diet controlled DM History of Any Multi-Drug Resistant Organisms: None Reported Past Surgical History: Hernia Repair Additional Past Surgical History / Comment(s): benign tumor removed lt lower jaw and artifical jaw inserted, cataract- bilat, sinus surgery, carpal tunnel surgery right wrist 1969' Past Anesthesia/Blood Transfusion Reactions: Motion Sickness Past Psychological History: Anxiety Smoking Status: Never smoker Past Alcohol Use History: None Reported Past Drug Use History: None Reported - Past Family History Father Family Medical History: Cancer, Diabetes Mellitus Mother Family Medical History: CVA/TIA Medications and Allergies Home Medications Medication Instructions Recorded Confirmed Type Aspirin EC [Ecotrin Low Dose] 81 mg PO DAILY@0800 01/09/22 10/25/23 History Meclizine HCl 25 mg PO HS@2100 01/09/22 10/25/23 History Vit C/E/Zn/Coppr/Lutein/Zeaxan 1 cap PO BID@0800,1700 01/09/22 10/25/23 History [Preservision Areds 2 Softgel] Carbidopa-Levodopa 25-100 mg 1 tab PO TID@0800,1200,1700 09/29/23 10/25/23 History [Sinemet 25-100 mg] Escitalopram [Lexapro] 20 mg PO DAILY@0800 10/12/23 10/25/23 History Acetaminophen Tab [Tylenol] 650 mg PO Q6HR PRN tab 10/22/23 10/25/23 Rx Ciprofloxacin Ophth Soln [Ciloxan 2 drops BOTH EYES Q4HR 10/25/23 10/25/23 History 0.3% Ophth Soln] Clopidogrel [Plavix] 75 mg PO DAILY@0800 10/25/23 10/25/23 History Collagenase [Santyl Ointment] 1 applic TOPICAL DAILY 10/25/23 10/25/23 History Enoxaparin [Lovenox] 40 mg SQ DAILY@0800 10/25/23 10/25/23 History Ensure Enlive 120 - 237 ml PO TID@0800,1200,1700 10/25/23 10/25/23 History INSULIN ASPART (NovoLOG) [NovoLOG See Protocol SQ 10/25/23 10/25/23 History (formulary)] ACHS@07,11,1630,2130 Ipratropium-Albuterol Nebulize 3 ml INHALATION RT-QID@00,06,12,18 10/25/23 10/25/23 History [Duoneb 0.5 mg-3 mg/3 ml Soln] Magnesium Hydroxide [Milk of 7,200 mg PO DAILY PRN 10/25/23 10/25/23 History Magnesia Concentrate] Na Phos,M-B/Na Phos,Di-Ba [Fleet 133 ml RECTAL DAILY PRN 10/25/23 10/25/23 History Adult] Pantoprazole [Protonix] 40 mg PO DAILY@0600 10/25/23 10/25/23 History bisacodyL [Dulcolax] 10 mg RECTAL DAILY PRN 10/25/23 10/25/23 History Piperacillin-Tazobactam [Zosyn] 3.375 gm IVPB Q8HR #42 each 10/27/23 Rx Allergies Allergy/AdvReac Type Severity Reaction Status Date / Time cephalexin Allergy Itching Verified 10/25/23 11:30 cockroach Allergy Unknown Verified 10/25/23 11:30 cyclobenzaprine Allergy Chest Pain Verified 10/25/23 11:30 morphine AdvReac Hallucinati Verified 10/25/23 11:30 ons Physical Exam Vitals: Vital Signs Temp Pulse Resp BP Pulse Ox 10/25/23 08:11 98.6 F 77 22 126/99 96 10/25/23 00:28 98.4 F 77 16 116/72 95 10/24/23 22:43 73 18 111/78 98 10/24/23 20:32 98.7 F 75 18 129/82 93 L 10/24/23 19:01 99.7 F H 78 18 116/87 97 Intake and Output 10/24/23 10/25/23 10/25/23 22:59 06:59 14:59 Other: Weight 111.13 kg GENERAL DESCRIPTION: Elderly male lying in bed, no distress. No tachypnea or accessory muscle of respiration use. HEENT: Shows Pallor , no scleral icterus. Oral mucous membrane is dry. No pharyngeal erythema or thrush NECK: Trachea central, no thyromegaly. LUNGS: Unlabored breathing. Clear to auscultation anteriorly. No wheeze or crackle. HEART: S1, S2, regular rate and rhythm. No loud murmur ABDOMEN: Soft, mild tenderness EXTREMITIES: No edema of feet. SKIN: No rash, no masses palpable. NEUROLOGICAL: The patient is lethargic but arousable, mood and affect normal. Results CBC & Chem 7: 10/26/23 08:35 10/26/23 08:35 Labs: Abnormal Lab Results - Last 24 Hours (Table) 10/24/23 10/24/23 10/25/23 Range/Units 20:30 20:30 07:38 RBC 4.06 L 4.00 L (4.30-5.90) m/uL Hgb 11.8 L 11.6 L (13.0-17.5) gm/dL Hct 35.7 L 35.4 L (39.0-53.0) % Plt Count 503 H 480 H (150-450) k/uL BUN 23 H (9-20) mg/dL Glucose 100 H (74-99) mg/dL Albumin 3.3 L (3.5-5.0) g/dL Lipase 640 H (23-300) U/L Assessment and Plan (1) Intra-abdominal abscess Status: Acute Code(s): K65.1 - PERITONEAL ABSCESS SNOMED Code(s): 49327276 Plan: 1patient presented to hospital with mental status changes and fever in this patient who recently did have an open appendectomy for perforated appendicitis no operative cultures and the patient was discharged to the intermediate on oral Augmentin now presenting back to the hospital with fever and mental status more likely failing outpatient oral antibiotic therapy CT abdominal pelvis did shows fluid collection at the surgical bed concerning for possible abscess 2-we will obtain blood cultures and check inflammatory markers 3-we will review of CT with radiologist if there is any need for further drainage procedure 4-we will start the patient on Zosyn 3.375 g every 8 hours Daughter at the bedside questions were answered We will follow on clinical condition and cultures to further adjust medication if needed Thank you for this consultation we will follow the patient along with you Dictation was produced using [employer] dictation software. please excuse any grammatical, word or spelling errors. Time with Patient: Greater than 30
[2023-10-25] MEDS: ACETAMINOPHEN TAB 325 MG TAB PO PRN (22:10)
[2023-10-25] MEDS: MECLIZINE 25 MG TAB PO SCH (22:10)
[2023-10-25] MEDS: CARBIDOPA-LEVODOPA 25-100 MG 1 EACH TAB PO SCH (22:23)
[2023-10-26] MEDS ORDERED: DEXTROSE 50% SYRINGE 50 ML IVP PRN ×2 (00:17)
--- NOTE | 2023-10-26 00:29 | P.HPIM ---
History of Present Illness H&P Date: 10/25/23 Chief Complaint: Altered mental status Patient is a 68-year-old male with a past medical history of Parkinson's dementia, hypertension, diabetes type 2, obstructive sleep apnea, history of CVA/TIA, anxiety and recent open abdominal surgery due to ruptured appendix with abscess and was discharged to [facility] on 10/22/2023. Patient was discharged with antibiotics Augmentin. Patient was transferred to ER due to altered mental status and decreased activity apparently patient has not been eating and sleeping most of the day. Patient noted to be having fever and shivering as per EMS. On admission Tmax 99.7. Heart rate 78 pulse ox 97% on room air. Respiration 18. Otherwise patient denies any chest pain. No shortness of breath. Patient could not tolerate much history at this time. KUB x-ray showed evidence of prior appendectomy with drainage catheter in place. Nonobstructive bowel gas pattern. Moderate amount of stool in the rectum. Chest x-ray showed no acute cardiopulmonary process. CT head showed no acute intracranial process. CT abdomen pelvis showed fluid collection within the appendectomy bed. Measuring approximately 3.8 x 3.4 x 5.5 cm. The surgical drain appears to traverse the collection. Correlate with the drain output. Laboratory data showed WBC 10.0 hemoglobin 11.8, platelets 503, BUN 23 and creatinine 1.02 and blood sugar 100 Albumin 3.3 lipase 640 Urinalysis negative for infection [place] AB RSV and COVID-19 PCR not detected. Review of Systems ROS unobtainable: due to mental status Past Medical History Past Medical History: CVA/TIA, Diabetes Mellitus, Hypertension, Sleep Apnea/CPAP/BIPAP Additional Past Medical History / Comment(s): Parkinsons. diet controlled DM History of Any Multi-Drug Resistant Organisms: None Reported Past Surgical History: Hernia Repair Additional Past Surgical History / Comment(s): benign tumor removed lt lower jaw and artifical jaw inserted, cataract- bilat, sinus surgery, carpal tunnel surgery right wrist 1969' Past Anesthesia/Blood Transfusion Reactions: Motion Sickness Past Psychological History: Anxiety Smoking Status: Never smoker Past Alcohol Use History: None Reported Past Drug Use History: None Reported - Past Family History Father Family Medical History: Cancer, Diabetes Mellitus Mother Family Medical History: CVA/TIA Medications and Allergies Home Medications Medication Instructions Recorded Confirmed Type Aspirin EC [Ecotrin Low Dose] 81 mg PO DAILY@0800 01/09/22 10/25/23 History Meclizine HCl 25 mg PO HS@2100 01/09/22 10/25/23 History Vit C/E/Zn/Coppr/Lutein/Zeaxan 1 cap PO BID@0800,1700 01/09/22 10/25/23 History [Preservision Areds 2 Softgel] Carbidopa-Levodopa 25-100 mg 1 tab PO TID@0800,1200,1700 09/29/23 10/25/23 History [Sinemet 25-100 mg] Escitalopram [Lexapro] 20 mg PO DAILY@0800 10/12/23 10/25/23 History Acetaminophen Tab [Tylenol] 650 mg PO Q6HR PRN tab 10/22/23 10/25/23 Rx Amoxic-Pot Clav 875-125Mg 1 tab PO Q12HR@0800,2100 10/25/23 10/25/23 History [Augmentin 875-125] Ciprofloxacin Ophth Soln [Ciloxan 2 drops BOTH EYES Q4HR 10/25/23 10/25/23 History 0.3% Ophth Soln] Clopidogrel [Plavix] 75 mg PO DAILY@0800 10/25/23 10/25/23 History Collagenase [Santyl Ointment] 1 applic TOPICAL DAILY 10/25/23 10/25/23 History Collagenase [Santyl Ointment] 1 applic TOPICAL DAILY PRN 10/25/23 10/25/23 History Enoxaparin [Lovenox] 40 mg SQ DAILY@0800 10/25/23 10/25/23 History Ensure Enlive 120 - 237 ml PO TID@0800,1200,1700 10/25/23 10/25/23 History INSULIN ASPART (NovoLOG) [NovoLOG See Protocol SQ 10/25/23 10/25/23 History (formulary)] ACHS@07,11,1630,2130 Ipratropium-Albuterol Nebulize 3 ml INHALATION RT-QID@00,06,12,18 10/25/23 10/25/23 History [Duoneb 0.5 mg-3 mg/3 ml Soln] Magnesium Hydroxide [Milk of 7,200 mg PO DAILY PRN 10/25/23 10/25/23 History Magnesia Concentrate] Na Phos,M-B/Na Phos,Di-Ba [Fleet 133 ml RECTAL DAILY PRN 10/25/23 10/25/23 History Adult] Pantoprazole [Protonix] 40 mg PO DAILY@0600 10/25/23 10/25/23 History bisacodyL [Dulcolax] 10 mg RECTAL DAILY PRN 10/25/23 10/25/23 History Allergies Allergy/AdvReac Type Severity Reaction Status Date / Time cephalexin Allergy Itching Verified 10/25/23 11:30 cockroach Allergy Unknown Verified 10/25/23 11:30 cyclobenzaprine Allergy Chest Pain Verified 10/25/23 11:30 morphine AdvReac Hallucinati Verified 10/25/23 11:30 ons Physical Exam Vitals: Vital Signs Temp Pulse Resp BP Pulse Ox 10/25/23 08:11 98.6 F 77 22 126/99 96 10/25/23 00:28 98.4 F 77 16 116/72 95 10/24/23 22:43 73 18 111/78 98 10/24/23 20:32 98.7 F 75 18 129/82 93 L 10/24/23 19:01 99.7 F H 78 18 116/87 97 Intake and Output 10/24/23 10/25/23 10/25/23 22:59 06:59 14:59 Other: Weight 111.13 kg PHYSICAL EXAMINATION: Patient is lying in the bed comfortably, no acute distress, awake alert and oriented.. HEENT: Normocephalic. Neck is supple. Pupils reactive. Nostrils clear. Oral cavity is moist. Neck reveals no JVD, carotid bruits, or thyromegaly. CHEST EXAMINATION: Trachea is central. Symmetrical expansion. Bibasilar d iminished sounds. CARDIAC: Normal S1, S2 with no gallops. No murmurs ABDOMEN: Soft. Bowel sounds normal. Surgical site intact. Drain tube in place with serosanguineous fluid. Mild tenderness. No abdominal bruits. Extremities: reveal no edema. No clubbing or cyanosis Neurologically awake, alert, oriented x 1-2. Able to move extremities while in bed. No gross focal deficits noted Skin: No rash or skin lesions. Psychiatric: Coperative. Could not be specific completely. Musculoskeletal: No joint swelling or deformity. Results CBC & Chem 7: 03/03/24 07:38 10/25/23 07:38 Labs: Abnormal Lab Results - Last 24 Hours (Table) 10/24/23 10/24/23 10/25/23 Range/Units 20:30 20:30 07:38 RBC 4.06 L 4.00 L (4.30-5.90) m/uL Hgb 11.8 L 11.6 L (13.0-17.5) gm/dL Hct 35.7 L 35.4 L (39.0-53.0) % Plt Count 503 H 480 H (150-450) k/uL BUN 23 H (9-20) mg/dL Glucose 100 H (74-99) mg/dL Albumin 3.3 L (3.5-5.0) g/dL Lipase 640 H (23-300) U/L Thrombosis Risk Factor Assmnt - DVT/VTE Prophylaxis DVT/VTE Prophylaxis: Pharmacologic Prophylaxis ordered Assessment and Plan Assessment: Altered mental status possible metabolic encephalopathy with underlying dementia Recent open appendectomy due to perforated appendicitis status post drain tube placement. CT of the abdomen pelvis showed fluid collection in the surgical bed concerning for possible abscess. Parkinson's dementia History of CVA/TIA Obstructive sleep apnea Hypertension Diabetes type 2 on sliding scale Anxiety DVT prophylaxis on Lovenox subcu Plan: Patient will be continued on IV hydration with normal saline. Started on antibiotics Zosyn as per ID recommendations. Continue with aspirin and Plavix and carbidopa/levodopa. GI and DVT prophylaxis. General surgery, ID and neurology is on board. CT of the lumbar spine was ordered due to low rectal weakness, not sure if it is new. Continue to follow closely. Time with Patient: Greater than 30
[2023-10-26] MEDS: SODIUM CHLORIDE 0.9% 1,000 ML IV SCH (02:28)
[2023-10-26 06:07] LABS: Glucose,Whole Blood 100 mg/dL (70-110)
[2023-10-26] MEDS: INSULIN ASPART (NovoLOG) 100 UNIT/ML VIAL SQ SCH (06:10)
[2023-10-26] MEDS: PANTOPRAZOLE 40 MG TABLET PO SCH (06:21)
[2023-10-26] MEDS ORDERED: bisacodyL 10 MG SUPP RECTAL PRN (09:00)
[2023-10-26] MEDS: IPRATROPIUM-ALBUTEROL 3 ML NEB INHALATION SCH (09:04)
[2023-10-26] MEDS: ENOXAPARIN 40 MG/0.4 ML SYRINGE SQ SCH (09:07)
[2023-10-26] MEDS: ASPIRIN 81 MG PO SCH (09:07)
[2023-10-26] MEDS: CLOPIDOGREL 75 MG TAB PO SCH (09:07)
[2023-10-26 09:15] LABS: Basophils # (A) 0.1 k/uL (0-0.2); Basophils % (A) 1 %; Eosinophils # (A) 0.2 k/uL (0-0.7); Eosinophils % (A) 3 %; HCT 34.7 % (39.0-53.0); HGB 11.4 gm/dL (13.0-17.5); Hypochromasia Slight; Lymphocytes # (A) 1.1 k/uL (1.0-4.8); Lymphocytes % (A) 14 %; MCH 29.2 pg (25.0-35.0); MCHC 32.9 g/dL (31.0-37.0); MCV 88.7 fL (80.0-100.0); Mean Platelet Volume 7.2; Monocytes # (A) 0.5 k/uL (0-1.0); Monocytes % (A) 7 %; Neutrophils # (A) 5.8 k/uL (1.3-7.7); Neutrophils % (A) 74 %; Platelet Count 501 k/uL (150-450); RBC 3.91 m/uL (4.30-5.90); RDW 12.8 % (11.5-15.5); WBC 7.8 k/uL (3.8-10.6)
[2023-10-26 09:33] LABS: African American GFR (CKD) 83 (>60 ml/min/1.73 sqM); Anion Gap 7 mmol/L; Blood Urea Nitrogen 12 mg/dL (9-20); Calcium 8.5 mg/dL (8.4-10.2); Carbon Dioxide 25 mmol/L (22-30); Chloride 107 mmol/L (98-107); Glucose 122 mg/dL (74-99); Non-African American GFR(CKD) 72 (>60 ml/min/1.73 sqM); Potassium 4.3 mmol/L (3.5-5.1); Sodium 139 mmol/L (137-145)
[2023-10-26 11:18] LABS: Glucose,Whole Blood 158 mg/dL (70-110)
--- NOTE | 2023-10-26 13:52 | P.PN ---
Subjective Progress Note Date: 10/26/23 CHIEF COMPLAINT: Altered mental status HISTORY OF PRESENT ILLNESS: Patient currently sitting up in bed. He is answering questions appropriately. Denies any abdominal pain. Denies any nausea or vomiting. Afebrile. Tolerating regular diet. Patient brought in from [facility] due to altered mental status and violent behavior. WBC 7.8 Hgb 11.[address] abdomen report a fluid collection within the appendectomy bed measuring approximately 3.8 x 3.4 x 5.4 cm. The surgical drain appears to traverse the collection. PHYSICAL EXAM: VITAL SIGNS: Reviewed. GENERAL: Well-developed in no acute distress. ABDOMEN: Soft. Nondistended. Nontender. Incision site clean dry and intact. BRADLEY drain with serosanguineous output NEUROLOGIC: Awake and alert ASSESSMENT: 1. Appendicitis status post open appendectomy 10/13/23 2. Altered mental status 3. History of Parkinson's dementia 4. History of CVA PLAN: -No surgical intervention planned -Continue antibiotics -Continue regular diet Physician Timber Rider note has been reviewed by physician. Signing provider agrees with the documented findings, assessment, and plan of care. Objective - Vital Signs Vital signs: Vital Signs Temp 97.4 F L 10/26/23 07:15 Pulse 69 10/26/23 12:03 Resp 17 10/26/23 07:15 BP 124/70 10/26/23 07:15 Pulse Ox 100 10/26/23 07:15 FiO2 Intake & Output 10/25/23 10/26/23 10/26/23 18:59 06:59 18:59 Intake Total 1300 1537 100 Balance 1300 1537 100 Weight 111.13 kg Intake: Intake, IV Titration 1000 1297 Amount Piperacillin-Tazobactam 3 100 200 .375 gm In Sodium Chloride 0.9% 100 ml @ 25 mls/hr IVPB Q8H BETTE Rx#: [id number] Sodium Chloride 0.9% 1, 900 910 000 ml @ 130 mls/hr IV . Q7H42M BETTE Rx#:[id number] Sodium Chloride 0.9% 1, 187 000 ml @ 75 mls/hr IV . [id number] BETTE Rx#:[id number] Oral 300 240 100 Other: Voiding Method Incontinent Diaper Diaper External Catheter Incontinent Incontinent External Catheter # Voids 5 4 # Bowel Movements 3 - Labs CBC & Chem 7: 10/26/23 08:35 10/26/23 08:35 Labs: Abnormal Lab Results - Last 24 Hours (Table) 10/25/23 10/26/23 10/26/23 Range/Units 07:38 08:35 08:35 RBC 3.91 L (4.30-5.90) m/uL Hgb 11.4 L (13.0-17.5) gm/dL Hct 34.7 L (39.0-53.0) % Plt Count 501 H (150-450) k/uL Glucose 122 H (74-99) mg/dL POC Glucose (mg/dL) (70-110) mg/dL Vitamin B12 1094.0 H (200.0-944.0) pg/mL 10/26/23 Range/Units 11:16 RBC (4.30-5.90) m/uL Hgb (13.0-17.5) gm/dL Hct (39.0-53.0) % Plt Count (150-450) k/uL Glucose (74-99) mg/dL POC Glucose (mg/dL) 158 H (70-110) mg/dL Vitamin B12 (200.0-944.0) pg/mL Microbiology - Last 24 Hours (Table) 10/24/23 20:30 Blood Culture - Preliminary Blood
[2023-10-26 14:53] VITALS: BMI 34.2
--- NOTE | 2023-10-26 15:06 | P.DS ---
Providers Date of admission: 10/24/23 23:13 Expected date of discharge: 10/26/23 Attending physician: Priyank Mcnulty Consults: 10/24/23 23:07 Consult Physician Routine Consulting Provider: Lenin Byers Consult Reason/Comments: ams Do you want consulting provider notified?: Yes 10/25/23 11:00 Consult Physician Routine Consulting Provider: Kai Edgar Consult Reason/Comments: fever Do you want consulting provider notified?: Yes 10/26/23 08:17 Consult Physician Routine Consulting Provider: Wan Thorne Consult Reason/Comments: recent appy Do you want consulting provider notified?: Already Contacted Primary care physician: Priyank Mcnulty [facility] Course: Final Diagnoses: Altered mental status possible metabolic encephalopathy with underlying dementia, resolved Recent open appendectomy due to perforated appendicitis status post drain tube placement. CT of the abdomen pelvis showed fluid collection in the surgical bed concerning for possible abscess. No further surgical intervention at this time as per general surgery, maintain BRADLEY drain. Parkinson's dementia History of CVA/TIA Obstructive sleep apnea Hypertension Diabetes type 2 on sliding scale Anxiety Hospital course; this is a 68-year-old gentleman with recent open appendectomy 10/13/2023 discharged on 10/22/2023 to [facility] subacute rehab.,returned on 10/24/2023 with altered mental status. UA reported negative. Viral studies negative .brain CT reported no acute intracranial abnormality. Evaluated by neurology with workup completed. CT of lumbar spine reported grade 1 anterior listhesis with L5 on S1 with bilateral spondylolysis, severe bilateral neural foraminal stenosis, drainage catheter courses to the lower abdomen, area of phlegmonous change and surgical clips are seen in the more superior aspect of the abdomen with a drainage catheter, this appears slightly smaller from 3-24 and moderate degeneration changes throughout the spine.. Evaluated by infectious disease, IV antibiotics initiated. CT abdomen pelvis showed fluid collection within the appendectomy bed. Measuring approximately 3.8 x 3.4 x 5.5 cm. The surgical drain appears to traverse the collection,Correlate with the drain output. Evaluated by general surgery with no surgical intervention recommended at this time to maintain the BRADLEY drain. Maintained on IV fluid hydration, IV antibiotics of Zosyn, Aspirin, Plavix and carbidopa/levodopa. Significant clinical improvement. Afebrile, normal WBC, hemoglobin 11.4, platelets 501, chemistry panel unremarkable. Tolerating diet .denies nausea vomiting or diarrhea. Denies abdominal pain. Abdomen soft, nondistended, nontender, BRADLEY with serosanguineous drainage. Alert and oriented x 2-3. Recognized PCP Dr. Mcnulty. Significant clinical improvement. Patient will be discharged back to [facility] rehab today in stable condition with guarded prognosis pending final DC recommendations and clearance per neurology and infectious disease. The impression and plan of care has been dictated as directed. : I performed a history and examination of this patient, discussed the same with the dictator. I agree with the dictator's note ,documented as a scribe. Any additional findings or plans will be noted. Patient Condition at Discharge: Stable Plan - Discharge Summary Discharge Rx Participant: No New Discharge Prescriptions: Continue Aspirin EC [Ecotrin Low Dose] 81 mg PO DAILY@0800 Vit C/E/Zn/Coppr/Lutein/Zeaxan [Preservision Areds 2 Softgel] 1 cap PO BI D@0800,1700 Escitalopram [Lexapro] 20 mg PO DAILY@0800 Acetaminophen Tab [Tylenol] 650 mg PO Q6HR PRN tab PRN Reason: Mild Pain Or Fever >= 100.5 Ciprofloxacin Ophth Soln [Ciloxan 0.3% Ophth Soln] 2 drops BOTH EYES Q4HR Collagenase [Santyl Ointment] 1 applic TOPICAL DAILY Enoxaparin [Lovenox] 40 mg SQ DAILY@0800 INSULIN ASPART (NovoLOG) [NovoLOG (formulary)] See Protocol SQ ACHS@07,11,1630,2130 Ipratropium-Albuterol Nebulize [Duoneb 0.5 mg-3 mg/3 ml Soln] 3 ml INHALATION RT-QID@00,06,12,18 Magnesium Hydroxide [Milk of Magnesia Concentrate] 7,200 mg PO DAILY PRN PRN Reason: Constipation Pantoprazole [Protonix] 40 mg PO DAILY@0600 Meclizine HCl 25 mg PO HS@2100 Carbidopa-Levodopa 25-100 mg [Sinemet 25-100 mg] 1 tab PO TID@0800,1200,1700 Ensure Enlive 120 - 237 ml PO TID@0800,1200,1700 Amoxic-Pot Clav 875-125Mg [Augmentin 875-125] 1 tab PO Q12HR@0800,2100 bisacodyL [Dulcolax] 10 mg RECTAL DAILY PRN PRN Reason: Constipation Clopidogrel [Plavix] 75 mg PO DAILY@0800 Collagenase [Santyl Ointment] 1 applic TOPICAL DAILY PRN PRN Reason: Rash Na Phos,M-B/Na Phos,Di-Ba [Fleet Adult] 133 ml RECTAL DAILY PRN PRN Reason: Constipation Discharge Medication List Aspirin EC [Ecotrin Low Dose] 81 mg PO DAILY@0800 01/09/22 [History] Meclizine HCl 25 mg PO HS@209901/09/22 [History] Vit C/E/Zn/Coppr/Lutein/Zeaxan [Preservision Areds 2 Softgel] 1 cap PO BID@0800,1700 01/09/22 [History] Carbidopa-Levodopa 25-100 mg [Sinemet 25-100 mg] 1 tab PO TID@0800,1200,1700 09/29/23 [History] Escitalopram [Lexapro] 20 mg PO DAILY@0800 10/12/23 [History] Acetaminophen Tab [Tylenol] 650 mg PO Q6HR PRN tab 10/22/23 [Rx] Amoxic-Pot Clav 875-125Mg [Augmentin 875-125] 1 tab PO Q12HR@0800,2100 10/25/23 [History] Ciprofloxacin Ophth Soln [Ciloxan 0.3% Ophth Soln] 2 drops BOTH EYES Q4HR 10/25/23 [History] Clopidogrel [Plavix] 75 mg PO DAILY@0800 10/25/23 [History] Collagenase [Santyl Ointment] 1 applic TOPICAL DAILY 10/25/23 [History] Collagenase [Santyl Ointment] 1 applic TOPICAL DAILY PRN 10/25/23 [History] Enoxaparin [Lovenox] 40 mg SQ DAILY@0800 10/25/23 [History] Ensure Enlive 120 - 237 ml PO TID@0800,1200,1700 10/25/23 [History] INSULIN ASPART (NovoLOG) [NovoLOG (formulary)] See Protocol SQ ACHS@07,11,1630,2130 10/25/23 [History] Ipratropium-Albuterol Nebulize [Duoneb 0.5 mg-3 mg/3 ml Soln] 3 ml INHALATION RT-QID@00,06,12,18 10/25/23 [History] Magnesium Hydroxide [Milk of Magnesia Concentrate] 7,200 mg PO DAILY PRN 10/25/23 [History] Na Phos,M-B/Na Phos,Di-Ba [Fleet Adult] 133 ml RECTAL DAILY PRN 10/25/23 [History] Pantoprazole [Protonix] 40 mg PO DAILY@0600 10/25/23 [History] bisacodyL [Dulcolax] 10 mg RECTAL DAILY PRN 10/25/23 [History] Follow up Appointment(s)/Referral(s): Priyank Mcnulty DO [Primary Care Provider] - 1 Week (After DC from subacute rehab)
[2023-10-26 16:45] LABS: Glucose,Whole Blood 126 mg/dL (70-110)
[2023-10-26] MEDS ORDERED: IPRATROPIUM-ALBUTEROL 3 ML NEB INHALATION PRN (20:21)
[2023-10-26 20:50] LABS: Glucose,Whole Blood 144 mg/dL (70-110)
[2023-10-26] MEDS ORDERED: CARBIDOPA-LEVODOPA 25-100 MG 1 EACH TAB PO SCH (21:37)
[2023-10-27 06:10] LABS: Glucose,Whole Blood 111 mg/dL (70-110)
[2023-10-27 07:05] LABS: Glucose,Whole Blood 107 mg/dL (70-110)
[2023-10-27] MEDS: IPRATROPIUM-ALBUTEROL 3 ML NEB INHALATION SCH (07:55)
[2023-10-27 07:57] VITALS: BP 123/73; RESP 16; TEMP 98
[2023-10-27 11:15] LABS: Glucose,Whole Blood 114 mg/dL (70-110)
--- NOTE | 2023-10-27 12:14 | P.PN ---
Subjective Progress Note Date: 10/27/23 CHIEF COMPLAINT: Altered mental status HISTORY OF PRESENT ILLNESS: Patient currently sitting up in bed. He denies any abdominal pain. Denies any nausea or vomiting. Tolerating diet. Afebrile. BRADLEY drain 10 mL serosanguineous output yesterday PHYSICAL EXAM: VITAL SIGNS: Reviewed. GENERAL: Well-developed in no acute distress. ABDOMEN: Soft. Nondistended. Nontender. Incision site clean dry and intact. BRADLEY drain with serosanguineous output NEUROLOGIC: Awake and alert ASSESSMENT: 1. Appendicitis status post open appendectomy 10/13/23 2. Altered mental status 3. History of Parkinson's dementia 4. History of CVA PLAN: -No surgical intervention planned -Continue antibiotics -Continue regular diet -Okay for discharge from surgical standpoint Physician Holiday Detector Operator note has been reviewed by physician. Signing provider agrees with the documented findings, assessment, and plan of care. Objective - Vital Signs Vital signs: Vital Signs Temp 98 F 10/27/23 07:46 Pulse 72 10/27/23 11:24 Resp 16 10/27/23 11:24 BP 123/73 10/27/23 07:46 Pulse Ox 98 10/27/23 07:46 FiO2 Intake & Output 10/26/23 10/27/23 10/27/23 18:59 06:59 18:59 Intake Total 336 1040 120 Output Total 235 600 Balance 101 440 120 Weight 111.13 kg Intake: Intake, IV Titration 700 Amount Piperacillin-Tazobactam 3 300 .375 gm In Sodium Chloride 0.9% 100 ml @ 25 mls/hr IVPB Q8H [facility] Rx#: [id number] Sodium Chloride 0.9% 1, 400 000 ml @ 75 mls/hr IV . [id number] [facility] Rx#:[id number] Oral 336 340 120 Output: Drainage 10 0 Right Upper Abdomen 10 0 Urine 225 600 Other: Voiding Method Diaper External Catheter External Catheter Incontinent External Catheter # Bowel Movements 1 1 - Labs CBC & Chem 7: 10/26/23 08:35 10/26/23 08:35 Labs: Abnormal Lab Results - Last 24 Hours (Table) 10/26/23 10/26/23 10/27/23 Range/Units 16:43 20:48 06:08 POC Glucose (mg/dL) 126 H 144 H 111 H (70-110) mg/dL 10/27/23 Range/Units 11:09 POC Glucose (mg/dL) 114 H (70-110) mg/dL Microbiology - Last 24 Hours (Table) 10/24/23 20:30 Blood Culture - Preliminary Blood
--- NOTE | 2023-10-27 12:15 | P.PN ---
Subjective Progress Note Date: 10/26/23 Principal diagnosis: Reason for follow-up is abnormal CT and a question of abscess Patient is a 68-year-old male with a past medical history significant for diabetes mellitus hypertension CVA TIA sleep apnea patient was recently admitted at this facility with a perforated appendicitis and this patient who is status post open appendectomy, patient was discharged to care home on Augmentin presenting back to the hospital with mental status changes did have a CT abdominal pelvis concerning for fluid collection in the surgical bed concern for possible abscess. On today's visit that is 10/26/2023, Patient is afebrile patient is currently on room air and denies having any shortness of breath, the patient denies any chest pain or cough, the patient denies any nausea vomiting, abdominal pain decreased in intensity no diarrhea. Patient did have white count of 7.8, creatinine 1.05 blood culture so far negative Objective - Vital Signs Vital signs: Vital Signs Temp 97.4 F L 10/26/23 07:15 Pulse 69 10/26/23 12:03 Resp 17 10/26/23 07:15 BP 124/70 10/26/23 07:15 Pulse Ox 100 10/26/23 07:15 FiO2 Intake & Output 10/25/23 10/26/23 10/26/23 18:59 06:59 18:59 Intake Total 1300 1537 100 Balance 1300 1537 100 Weight 111.13 kg Intake: Intake, IV Titration 1000 1297 Amount Piperacillin-Tazobactam 3 100 200 .375 gm In Sodium Chloride 0.9% 100 ml @ 25 mls/hr IVPB Q8H [facility] Rx#: [id number] Sodium Chloride 0.9% 1, 900 910 000 ml @ 130 mls/hr IV . [id number] [facility] Rx#:[id number] Sodium Chloride 0.9% 1, 187 000 ml @ 75 mls/hr IV . [id number] [facility] Rx#:[id number] Oral 300 240 100 Other: Voiding Method Incontinent Diaper Diaper External Catheter Incontinent Incontinent External Catheter # Voids 5 4 # Bowel Movements 3 - Exam GENERAL DESCRIPTION: An elderly male lying in bed in no distress RESPIRATORY SYSTEM: Unlabored breathing , decreased breath sounds at bases HEART: S1 S2 regular rate and rhythm , ABDOMEN: Soft , no tenderness EXTREMITIES: No edema feet - Labs CBC & Chem 7: 10/26/23 08:35 10/26/23 08:35 Labs: Abnormal Lab Results - Last 24 Hours (Table) 10/25/23 10/26/23 10/26/23 Range/Units 07:38 08:35 08:35 RBC 3.91 L (4.30-5.90) m/uL Hgb 11.4 L (13.0-17.5) gm/dL Hct 34.7 L (39.0-53.0) % Plt Count 501 H (150-450) k/uL Glucose 122 H (74-99) mg/dL POC Glucose (mg/dL) (70-110) mg/dL Vitamin B12 1094.0 H (200.0-944.0) pg/mL 10/26/23 Range/Units 11:16 RBC (4.30-5.90) m/uL Hgb (13.0-17.5) gm/dL Hct (39.0-53.0) % Plt Count (150-450) k/uL Glucose (74-99) mg/dL POC Glucose (mg/dL) 158 H (70-110) mg/dL Vitamin B12 (200.0-944.0) pg/mL Microbiology - Last 24 Hours (Table) 10/24/23 20:30 Blood Culture - Preliminary Blood Assessment and Plan (1) Intra-abdominal abscess Current Visit: Yes Status: Acute Code(s): K65.1 - PERITONEAL ABSCESS SNOMED Code(s): 14741704 Plan: 1patient presented to hospital with mental status changes and fever in this patient who recently did have an open appendectomy for perforated appendicitis no operative cultures and the patient was discharged to the care home on oral Augmentin now presenting back to the hospital with fever and mental status more likely failing outpatient oral antibiotic therapy CT abdominal pelvis did shows fluid collection at the surgical bed concerning for possible abscess 2-patient did have some clinical improvement and will continue patient on Zosyn 3.375 g every 8 hours while waiting for the culture to finalize Dictation was produced using [employer] dictation software. please excuse any grammatical, word or spelling errors. Time with Patient: Less than 30
--- NOTE | 2023-10-27 12:16 | P.PN ---
Subjective Progress Note Date: 10/27/23 Principal diagnosis: Reason for follow-up is abnormal CT and a question of abscess Patient is a 68-year-old male with a past medical history significant for diabetes mellitus hypertension CVA TIA sleep apnea patient was recently admitted at this facility with a perforated appendicitis and this patient who is status post open appendectomy, patient was discharged to snf on Augmentin presenting back to the hospital with mental status changes did have a CT abdominal pelvis concerning for fluid collection in the surgical bed concern for possible abscess. On today's visit that is 10/27/2023,the patient denies any fever or any chills, patient is breathing comfortably on room air, the patient denies chest pain shortness of breath and no significant cough, patient denies abdominal pain, no nausea vomiting or diarrhea, feeling better. No new labs has been repeated today blood culture has been negative so far Objective - Vital Signs Vital signs: Vital Signs Temp 98 F 10/27/23 07:46 Pulse 72 10/27/23 11:24 Resp 16 10/27/23 11:24 BP 123/73 10/27/23 07:46 Pulse Ox 98 10/27/23 07:46 FiO2 Intake & Output 10/26/23 10/27/23 10/27/23 18:59 06:59 18:59 Intake Total 336 1040 120 Output Total 235 600 Balance 101 440 120 Weight 111.13 kg Intake: Intake, IV Titration 700 Amount Piperacillin-Tazobactam 3 300 .375 gm In Sodium Chloride 0.9% 100 ml @ 25 mls/hr IVPB Q8H [facility]TE Rx#: [id number] Sodium Chloride 0.9% 1, 400 000 ml @ 75 mls/hr IV . [id number] [facility] Rx#:[id number] Oral 336 340 120 Output: Drainage 10 0 Right Upper Abdomen 10 0 Urine 225 600 Other: Voiding Method Diaper External Catheter External Catheter Incontinent External Catheter # Bowel Movements 1 1 - Exam GENERAL DESCRIPTION: An elderly male lying in bed in no distress RESPIRATORY SYSTEM: Unlabored breathing , decreased breath sounds at bases HEART: S1 S2 regular rate and rhythm , ABDOMEN: Soft , no tenderness EXTREMITIES: No edema feet - Labs CBC & Chem 7: 10/26/23 08:35 10/26/23 08:35 Labs: Abnormal Lab Results - Last 24 Hours (Table) 10/26/23 10/26/2310/26/24 Range/Units 16:43 20:48 06:08 POC Glucose (mg/dL) 126 H 144 H 111 H (70-110) mg/dL 10/27/23 Range/Units 11:09 POC Glucose (mg/dL) 114 H (70-110) mg/dL Microbiology - Last 24 Hours (Table) 10/24/23 20:30 Blood Culture - Preliminary Blood Assessment and Plan (1) Intra-abdominal abscess Current Visit: Yes Status: Acute Code(s): K65.1 - PERITONEAL ABSCESS SNOMED Code(s): 77312773 Plan: 1patient presented to hospital with mental status changes and fever in this patient who recently did have an open appendectomy for perforated appendicitis no operative cultures and the patient was discharged to the snf on oral Augmentin now presenting back to the hospital with fever and mental status more likely failing outpatient oral antibiotic therapy CT abdominal pelvis did shows fluid collection at the surgical bed concerning for possible abscess 2-patient did have some clinical improvement As we do not have any other clear focus for his mental status changes patient responded to Zosyn plan is to get a midline and continue with the Zosyn x 2-week and close outpatient follow-up Dictation was produced using [employer] dictation software. please excuse any grammatical, word or spelling errors. Time with Patient: Less than 30
[2023-10-27 15:34] VITALS: PULSE 72
--- NOTE | 2023-10-27 16:59 | CDI ---
Documentation Clarification Form Date: 10/27/2023 04:45:20 PM From: Althea Silva RN, CCDS Phone: [phone] Admit Date: 10/24/2023 11:13:00 PM Patient Name: Matthieu Baird V Visit Number: [id number] Discharge Date: ATTENTION: The Clinical Documentation Specialists (CDI) and [facility] Coding Staff appreciate your assistance in clarifying documentation. Please respond to the clarification below the line at the bottom and electronically sign. The CDI & [facility] Coding staff will review the response and follow-up if needed. Please note: Queries are made part of the Legal Health Record. If you have any questions, please contact the author of this message via ITS. Dr. Priyank Bowers pressure ulcer is documented in ED as pressure ulcer stage II unchanged on 10/24 23 and in nursing wound care assessment on 10/23 as pressure injury sacrum stage II. Based on this information and the findings below, is there an additional diagnosis that is clinically appropriate for this patient? History/Risk Factors: CVA/TIA, Diabetes Mellitus, Hypertension, Sleep Apnea/CPAP/BIPAP Clinical Indicators: 68-year-old male with a history of dementia who recently had open abdominal surgery for ruptured appendix who is here from [facility] today because of altered mental status Location: Sacrum Wound description: pressure injury stage II Treatment: Dressing changes per protocol with saline Irrigant solution Is there an additional diagnosis that is clinically appropriate for this patient? [ ] Sacrum Pressure Ulcer Stage 2 POA [ ] Other condition, please specify [ ] Unable to determine Clinical Definitions: Stage 1 Pressure Ulcer: intact skin, non-blanching redness of local area Stage 2 Pressure Ulcer: Partial thickness, loss of dermis, pink wound bed Stage 3 Pressure Ulcer: Full thickness tissue loss Stage 4 Pressure Ulcer: Full thickness tissue loss with exposed bone, tendon, or muscle. Unstageable pressure ulcer: Full thickness tissue loss in which the base of the ulcer is covered by slough (yellow, mederos, paul, green or brown) and/or eschar (mederos, brown or black) in the wound bed. (Template Last Revised: October 2020) MTDD
== END 2023-10-27 17:25 | disposition home or self-care (01) | DRG 862 ==
LOC: EC 18:55 → 5NMEDONC 23:13 → 1SOBS 10-25 13:34
PROVIDERS: ADMIT Family Medicine; ATTEND Family Medicine
DX: T81.49XA Infection following a procedure, other surgical site, initial encounter (principal); G93.41 Metabolic encephalopathy; F02.811 Dementia in other diseases classified elsewhere, unspecified severity, with agitation; Z11.52 Encounter for screening for COVID-19; Y84.8 Other medical procedures as the cause of abnormal reaction of the patient, or of later complication, without mention of misadventure at the time of the procedure; E86.0 Dehydration; G20.A1 Parkinson's disease without dyskinesia, without mention of fluctuations; I10 Essential (primary) hypertension; F10.20 Alcohol dependence, uncomplicated; G47.33 Obstructive sleep apnea (adult) (pediatric); I25.10 Atherosclerotic heart disease of native coronary artery without angina pectoris; I45.10 Unspecified right bundle-branch block; Z79.4 Long term (current) use of insulin; Z79.02 Long term (current) use of antithrombotics/antiplatelets; Z79.82 Long term (current) use of aspirin; Z79.899 Other long term (current) drug therapy; Z86.73 Personal history of transient ischemic attack (TIA), and cerebral infarction without residual deficits; Z90.49 Acquired absence of other specified parts of digestive tract; Z88.1 Allergy status to other antibiotic agents; Z88.5 Allergy status to narcotic agent; Z87.19 Personal history of other diseases of the digestive system
CPT/HCPCS: 36410; 36415; 70450; 71045; 72131; 74018; 74177; 76937; 80048; 80053; 81003; 82140; 82550; 82607; 82746; 83036; 83605; 83690; 83735; 84443; 84484; 85025; 87040; 87636; 93005; 94640; 96361

== ENCOUNTER 2024-02-22 23:20 | Inpatient (IN) | payer MEDICARE, BC ==
--- NOTE | 2024-02-22 23:53 | ED ---
General Adult HPI - General Chief complaint: Chest Pain Stated complaint: Chest Pain, SOB Time Seen by Provider: 02/22/24 23:22 Source: patient, EMS Mode of arrival: EMS - History of Present Illness Initial comments: Dictation was produced using [employer] dictation software. please excuse any grammatical, word or spelling errors. Chief Complaint: 68-year-old male with sharp chest pain History of Present Illness: Patient is a 68-year-old male with multiple comorbidities presents emergency department for several hours of sharp chest pain. States that its there is bilateral lower chest. States that it severe. Patient also complains of shortness of breath. No associated diaphoresis or nausea. Patient denies any history of VA. Was brought in by EMS. The ROS documented in this emergency department record has been reviewed and confirmed by me. Those systems with pertinent positive or negative responses have been documented in the HPI. All other systems are other negative and/or noncontributory. - Related Data Home Medications Medication Instructions Recorded Confirmed Aspirin EC [Ecotrin Low Dose] 81 mg PO DAILY@0800 01/09/22 10/25/23 Meclizine HCl 25 mg PO HS@2100 01/09/22 10/25/23 Vit C/E/Zn/Coppr/Lutein/Zeaxan 1 cap PO BID@0800,1700 01/09/22 10/25/23 [Preservision Areds 2 Softgel] Carbidopa-Levodopa 25-100 mg 1 tab PO TID@0800,1200,1700 09/29/23 10/25/23 [Sinemet 25-100 mg] Escitalopram [Lexapro] 20 mg PO DAILY@0800 10/12/23 10/25/23 Ciprofloxacin Ophth Soln [Ciloxan 2 drops BOTH EYES Q4HR 10/25/23 10/25/23 0.3% Ophth Soln] Clopidogrel [Plavix] 75 mg PO DAILY@0800 10/25/23 10/25/23 Collagenase [Santyl Ointment] 1 applic TOPICAL DAILY 10/25/23 10/25/23 Enoxaparin [Lovenox] 40 mg SQ DAILY@0800 10/25/23 10/25/23 Ensure Enlive 120 - 237 ml PO TID@0800,1200,1700 10/25/23 10/25/23 INSULIN ASPART (NovoLOG) [NovoLOG See Protocol SQ 10/25/23 10/25/23 (formulary)] ACHS@07,11,1630,2130 Ipratropium-Albuterol Nebulize 3 ml INHALATION RT-QID@00,06,12,18 10/25/23 [Duoneb 0.5 mg-3 mg/3 ml Soln] Magnesium Hydroxide [Milk of 7,200 mg PO DAILY PRN 10/25/23 10/25/23 Magnesia Concentrate] Na Phos,M-B/Na Phos,Di-Ba [Fleet 133 ml RECTAL DAILY PRN 10/25/23 10/25/23 Adult] Pantoprazole [Protonix] 40 mg PO DAILY@0600 10/25/23 10/25/23 bisacodyL [Dulcolax] 10 mg RECTAL DAILY PRN 10/25/23 10/25/23 Previous Rx's Medication Instructions Recorded Acetaminophen Tab [Tylenol] 650 mg PO Q6HR PRN tab 10/22/23 Piperacillin-Tazobactam [Zosyn] 3.375 gm IVPB Q8HR #42 each 10/27/23 Allergies Allergy/AdvReac Type Severity Reaction Status Date / Time cephalexin Allergy Itching Verified 10/25/23 11:30 cockroach Allergy Unknown Verified 10/25/23 11:30 cyclobenzaprine Allergy Chest Pain Verified 10/25/23 11:30 morphine AdvReac Hallucinati Verified 10/25/23 11:30 ons Review of Systems ROS Statement: Those systems with pertinent positive or pertinent negative responses have been documented in the HPI. ROS Other: All systems not noted in ROS Statement are negative. Past Medical History Past Medical History: CVA/TIA, Diabetes Mellitus, Hypertension, Sleep Apnea/CPAP/BIPAP Additional Past Medical History / Comment(s): Parkinsons. diet controlled DM History of Any Multi-Drug Resistant Organisms: None Reported Past Surgical History: Hernia Repair Additional Past Surgical History / Comment(s): benign tumor removed lt lower jaw and artifical jaw inserted, cataract- bilat, sinus surgery, carpal tunnel surgery right wrist 1970's Past Anesthesia/Blood Transfusion Reactions: Motion Sickness Past Psychological History: Anxiety Smoking Status: Never smoker Past Alcohol Use History: None Reported Past Drug Use History: None Reported - Past Family History Father Family Medical History: Cancer, Diabetes Mellitus Mother Family Medical History: CVA/TIA General Exam - General Exam Comments Initial Comments: PHYSICAL EXAM: General Impression: Alert and oriented x3, not in acute distress HEENT: Normocephalic atraumatic, extra-ocular movements intact, pupils equal and reactive to light bilaterally, mucous membranes moist. Cardiovascular: Heart regular rate and rhythm Chest: Able to complete full sentences, no retractions, no tachypnea Abdomen: abdomen soft, non-tender, non-distended, no organomegaly Musculoskeletal: Pulses present and equal in all extremities, no peripheral edema Motor: no focal deficits noted Neurological: CN II-XII grossly intact, no focal motor or sensory deficits noted Skin: Intact with no visualized rashes Psych: Normal affect and mood Course Vital Signs 02/22/24 02/23/24 23:22 02:00 Temperature 98.4 F Pulse Rate 90 93 Respiratory 19 16 Rate Blood Pressure 138/79 143/101 O2 Sat by Pulse 98 96 Oximetry EKG Findings - EKG Comments: EKG Findings:: My EKG interpretation: Ventricular rate 91, sinus rhythm,. 133, QRS 115, QTc 420, right bundle branch block. No MT prolongation, no QTC prolongation, no ST or T-wave changes noted. Overall, this EKG is unremarkable Medical Decision Making - Medical Decision Making Was pt. sent in by a medical professional or institution (, PA, VETERINARY PRACTITIONER, urgent care, hospital, or usp...) When possible be specific @ -No Did you speak to anyone other than the patient for history (EMS, parent, family, police, friend...)? What history was obtained from this source @ -No Did you review nursing and triage notes (agree or disagree)? Why? @ -I reviewed and agree with nursing and triage notes Were old charts reviewed (outside hosp., previous admission, EMS record, old EKG, old radiological studies, urgent care reports/EKG's, usp records)? Report findings @ -No old charts were reviewed Differential Diagnosis (chest pain, altered mental status, abdominal pain women, abdominal pain men, vaginal bleeding, musculoskeletal, weakness, fever, dyspnea, syncope, headache, dizziness, GI bleed, back pain, seizure, CVA, palpatations, mental health)? @ -Differential Chest Pain: Stable Angina, Unstable Angina, STEMI, NSTEMI Aortic Dissection, Pneumothorax, Musculoskeletal, Esophageal Spasm GERD, Cholecystitis, Pancreatitis, Zoster, this is not meant to be an all-inclusive list. EKG interpreted by me (3pts min.). @ -See above X-rays interpreted by me (1pt min.). @ -Chest x-ray is nonacute CT interpreted by me (1pt min.). @ -CT angiography of the chest shows no large pulmonary embolism U/S interpreted by me (1pt. min.). @ -None done What testing was considered but not performed or refused? (CT, X-rays, U/S, labs)? Why? @ -None What meds were considered but not given or refused? Why? @ -None Was smoking cessation discussed for >3mins.? @ -No Were there social determinants of health that impacted care today? How? (Homelessness, low income, unemployed, alcoholism, drug addiction, transportation, low edu. Level, literacy, decrease access to med. care, skilled nursing, rehab)? @ -Lack of insurance Was there de-escalation of care discussed even if they declined (Discuss DNR or withdrawal of care, Hospice)? DNR status @ -No What co-morbidities impacted this encounter? (DM, HTN, Smoking, COPD, CAD, Cancer, CVA, ARF, Chemo, Hep., AIDS, mental health diagnosis, sleep apnea, morbid obesity)? @ -None Was patient admitted / discharged? Hospital course, mention meds given and route, prescriptions, significant lab abnormalities, going to OR and other pertinent info. @ -68-year-old male presents emergency department atypical chest pain wtypical features. Patient has multiple risk factors including age, comorbidities. Laboratory evaluation obtained. Mild leukocytosis 14.7. Elevated D-dimer 1.93. Metabolic panel is unremarkable. Troponin is negative. D-dimer is elevated 1.93. CT angiography shows no large pulmonary embolism. Patient reevaluated bedside at 3:36 AM found to be in stable condition. Patient given aspirin. Will be admitted to [facility]. Did you discuss the management of the patient with other professionals (professionals i.e. , PA, VETERINARY PRACTITIONER, lab, RT, psych nurse, social services coordinator, interface analyst, teacher, air support control officer, vocational case manager)? Give summary @ -Case discussed with hospitalist for admission Was critical care preformed (if so, how long)? @ -No Undiagnosed new problem with uncertain prognosis? @ -No Drug Therapy requiring intensive monitoring for toxicity (Heparin, Nitro, Insulin, Cardizem)? @ -No Were any procedures done? @ -No Diagnosis/symptom? Acute, or Chronic, or Acute on Chronic? Uncomplicated (without systemic symptoms) or Complicated (systemic symptoms)? @ -Chest pain Side effects of treatment? @ -No Exacerbation, Progression, or Severe Exacerbation? @ -No Poses a threat to life or bodily function? How? (Chest pain, [place], [place], pneumonia, PE, COPD, DKA, ARF, appy, cholecystitis, CVA, Diverticulitis, Homicidal, Suic idal, threat to staff... and all critical care pts) @ -yes - Lab Data Result diagrams: 02/22/24 23:38 02/22/24 23:38 Lab Results 02/22/24 02/22/24 02/22/24 Range/Units 23:38 23:38 23:38 WBC 14.7 H (3.8-10.6) k/uL RBC 5.14 (4.30-5.90) m/uL Hgb 14.0 (13.0-17.5) gm/dL Hct 44.4 (39.0-53.0) % MCV 86.3 (80.0-100.0) fL MCH 27.3 (25.0-35.0) pg MCHC 31.6 (31.0-37.0) g/dL RDW 13.3 (11.5-15.5) % Plt Count 252 (150-450) k/uL MPV 6.7 Neutrophils % 91 % Lymphocytes % 4 % Monocytes % 4 % Eosinophils % 1 % Basophils % 0 % Neutrophils # 13.4 H (1.3-7.7) k/uL Lymphocytes # 0.6 L (1.0-4.8) k/uL Monocytes # 0.5 (0-1.0) k/uL Eosinophils # 0.1 (0-0.7) k/uL Basophils # 0.0 (0-0.2) k/uL PT 12.9 H (10.0-12.5) sec INR 1.2 H (<1.2) APTT 25.0 (22.0-30.0) sec D-Dimer 1.93 H (<0.60) mg/L FEU Sodium 138 (137-145) mmol/L Potassium 3.8 (3.5-5.1) mmol/L Chloride 105 (98-107) mmol/L Carbon Dioxide 25 (22-30) mmol/L Anion Gap 8 mmol/L BUN 14 (9-20) mg/dL Creatinine 0.93 (0.66-1.25) mg/dL Est GFR (CKD-EPI)AfAm >90 (>60 ml/min/1.73 sqM) Est GFR (CKD-EPI)NonAf 83 (>60 ml/min/1.73 sqM) Glucose 179 H (74-99) mg/dL Calcium 8.7 (8.4-10.2) mg/dL Magnesium 1.7 (1.6-2.3) mg/dL Total Bilirubin 2.2 H (0.2-1.3) mg/dL AST 224 H (17-59) U/L ALT 20 (4-49) U/L Alkaline Phosphatase 233 H (38-126) U/L Troponin I (0.000-0.034) ng/mL NT-Pro-B Natriuret Pep 291 pg/mL Total Protein 6.6 (6.3-8.2) g/dL Albumin 3.7 (3.5-5.0) g/dL 02/22/24 Range/Units 23:38 WBC (3.8-10.6) k/uL RBC (4.30-5.90) m/uL Hgb (13.0-17.5) gm/dL Hct (39.0-53.0) % MCV (80.0-100.0) fL MCH (25.0-35.0) pg MCHC (31.0-37.0) g/dL RDW (11.5-15.5) % Plt Count (150-450) k/uL MPV Neutrophils % % Lymphocytes % % Monocytes % % Eosinophils % % Basophils % % Neutrophils # (1.3-7.7) k/uL Lymphocytes # (1.0-4.8) k/uL Monocytes # (0-1.0) k/uL Eosinophils # (0-0.7) k/uL Basophils # (0-0.2) k/uL PT (10.0-12.5) sec INR (<1.2) APTT (22.0-30.0) sec D-Dimer (<0.60) mg/L FEU Sodium (137-145) mmol/L Potassium (3.5-5.1) mmol/L Chloride (98-107) mmol/L Carbon Dioxide (22-30) mmol/L Anion Gap mmol/L BUN (9-20) mg/dL Creatinine (0.66-1.25) mg/dL Est GFR (CKD-EPI)AfAm (>60 ml/min/1.73 sqM) Est GFR (CKD-EPI)NonAf (>60 ml/min/1.73 sqM) Glucose (74-99) mg/dL Calcium (8.4-10.2) mg/dL Magnesium (1.6-2.3) mg/dL Total Bilirubin (0.2-1.3) mg/dL AST (17-59) U/L ALT (4-49) U/L Alkaline Phosphatase (38-126) U/L Troponin I <0.012 (0.000-0.034) ng/mL NT-Pro-B Natriuret Pep pg/mL Total Protein (6.3-8.2) g/dL Albumin (3.5-5.0) g/dL Disposition Clinical Impression: Chest pain Disposition: ADMITTED IP TO THIS HOSP Condition: Fair Referrals: None,Stated [Primary Care Provider] - 1-2 days Decision Time: 03:36
[2024-02-23 00:01] LABS: Basophils % (A) 0 %; Eosinophils # (A) 0.1 k/uL (0-0.7); Eosinophils % (A) 1 %; HCT 44.4 % (39.0-53.0); Lymphocytes # (A) 0.6 k/uL (1.0-4.8); Lymphocytes % (A) 4 %; MCH 27.3 pg (25.0-35.0); MCHC 31.6 g/dL (31.0-37.0); MCV 86.3 fL (80.0-100.0); Mean Platelet Volume 6.7; Monocytes # (A) 0.5 k/uL (0-1.0); Monocytes % (A) 4 %; Neutrophils # (A) 13.4 k/uL (1.3-7.7); Neutrophils % (A) 91 %; Platelet Count 252 k/uL (150-450); RBC 5.14 m/uL (4.30-5.90); RDW 13.3 % (11.5-15.5); WBC 14.7 k/uL (3.8-10.6)
[2024-02-23 00:06] LABS: ALT 20 U/L (4-49); AST 224 U/L (17-59); African American GFR (CKD) >90 (>60 ml/min/1.73 sqM); Albumin 3.7 g/dL (3.5-5.0); Alkaline Phosphatase 233 U/L (38-126); Anion Gap 8 mmol/L; Blood Urea Nitrogen 14 mg/dL (9-20); Calcium 8.7 mg/dL (8.4-10.2); Carbon Dioxide 25 mmol/L (22-30); Chloride 105 mmol/L (98-107); Glucose 179 mg/dL (74-99); Magnesium 1.7 mg/dL (1.6-2.3); Non-African American GFR(CKD) 83 (>60 ml/min/1.73 sqM); Potassium 3.8 mmol/L (3.5-5.1); Sodium 138 mmol/L (137-145); Total Bilirubin 2.2 mg/dL (0.2-1.3); Total Protein 6.6 g/dL (6.3-8.2)
[2024-02-23 00:13] LABS: INR 1.2 (<1.2); Prothrombin Time 12.9 sec (10.0-12.5)
[2024-02-23 00:15] LABS: NT-Pro-B-Type Natriuretic Pept 291 pg/mL
--- NOTE | 2024-02-23 00:28 | XR ---
EXAMINATION TYPE: XR chest 2V DATE OF EXAM: 02/23/2024 COMPARISON: Chest x-ray October 24, 2023 HISTORY: Chest pain and shortness of breath TECHNIQUE: Frontal and lateral views of the chest are obtained. FINDINGS: Low lung volumes are redemonstrated. There is no suspicious new focal air space opacity, p leural effusion, or pneumothorax seen. The cardiac silhouette size is stable and within normal limit s. The osseous structures are intact. IMPRESSION: Low lung volumes without acute pulmonary process. No significant change from prior.
--- NOTE | 2024-02-23 03:20 | CT ---
EXAM: CT Angiography Chest With Intravenous Contrast CLINICAL HISTORY: ITS.REASON CT Reason: positive D-dimer TECHNIQUE: Axial computed tomographic angiography images of the chest with intravenous contrast. CTDI is 21.5 mGy and DLP is 521.4 mGy-cm. This CT exam was performed using one or more of the following dose reduction techniques: automated exposure control, adjustment of the mA and/or kV according to patient size, and/or use of iterative reconstruction technique. MIP reconstructed images were created and reviewed. COMPARISON: No relevant prior studies available. FINDINGS: LUNGS: No focal consolidation, pleural effusion, or pneumothorax. Atelectasis at the lung bases. HEART: Cardiomegaly. VASCULATURE: No large or central pulmonary embolism. Evaluation is limited due to suboptimal contrast bolus timing. The need for repeat exam should be determined clinically. Impression. THYROID: Within normal limits. MEDIASTINUM + LYMPH NODES: There are no pathologically enlarged mediastinal, hilar, or axillary lymph nodes. SUPERIOR ABDOMEN: Hepatic steatosis. MUSCULOSKELETAL: Degenerative changes. IMPRESSION: No large or central pulmonary embolism. Evaluation is limited due to suboptimal contrast bolus timing. The need for repeat exam should be determined clinically. Impression.
[2024-02-23] MEDS ORDERED: NITROGLYCERIN SL TABS 0.4 MG TAB SUBLINGUAL PRN (03:37)
[2024-02-23] MEDS: ASPIRIN 81 MG PO STA (04:07)
--- NOTE | 2024-02-23 05:15 | P.HPIM ---
History of Present Illness H&P Date: 02/23/24 Patient is a 68-year-old male with a PMH of Lewy body dementia and Parkinson's, type II DM, hypertension, history of CVA, and anxiety who was brought into the emergency room by family for concerns of chest pain. The patient reports that he has been experiencing substernal chest pain since 5 PM. Patient notes that it is somewhat pleuritic in nature and worse with sternal palpation. Denied experiencing shortness of breath, fever, chills, cough, nausea, vomiting, abdominal pain, diarrhea. Chest CTA in the emergency room was unremarkable with EKG showing sinus rhythm with sinus arrhythmia at 91 bpm with a right bundle branch block with a poor baseline as reviewed by me. Chest x-ray revealed no acute abnormalities. Laboratory evaluation was remarkable for WBC count 14.7, troponin less than 0.012, AST 224, ALT 20, glucose 179, D-dimer 1.93, and proBNP 291. ED documentation reviewed and case discussed with ED provider. Review of systems: Pertinent positives and negatives as discussed in HPI, a complete review of systems was performed and all other systems are negative. Physical examination: Vital signs reviewed General: non toxic, no distress, appears at stated age, obese Derm: no unusual rashes/lesions, warm Head: atraumatic, normocephalic, symmetric Eyes: EOMI, no lid lag, anicteric sclera, pupils equal round reactive to light ENT: Nose and ears atraumatic Neck: No cervical lymphadenopathy, trachea midline, supple Mouth: no lip lesion, mucus membranes moist Cardiovascular: S1S2 reg, no murmur, positive dorsalis pedis pulse bilateral, no edema Lungs: CTA bilateral, no rhonchi, no rales, no accessory muscle use Abdominal: soft, nontender to palpation, no guarding Ext: muscle strength 4 out of 5 in all 4 extremities grossly, no gross muscle atrophy, no contractures, Neuro: CN II-XI grossly intact, no gross focal neuro deficits Psych: Alert, oriented, to person only, not oriented to time or place Assessment: Atypical chest pain, rule out ACS Leukocytosis, suspect secondary to acute stressor with no signs of active infection at this time Abnormal LFTs, Unclear etiology Chronic conditions: Lewy body dementia, type II DM, hypertension, history of CVA Imaging: Chest CTA in the emergency room was unremarkable with EKG showing sinus rhythm with sinus arrhythmia at 91 bpm with a right bundle branch block with a poor baseline as reviewed by me. Chest x-ray revealed no acute abnormalities. Data Review: Laboratory evaluation was remarkable for WBC count 14.7, troponin less than 0.012, AST 224, ALT 20, glucose 179, D-dimer 1.93, and proBNP 291. Plan: Cardiology consulted Cardiac monitoring Trend troponin Continue with aspirin and statin Monitor CBC and LFTs Resume home medications once reconciled including insulin sliding scale blood glucose monitoring DVT prophylaxis: Lovenox subcu The patient is admitted with an anticipated fewer than 2 midnight stay for evaluation of chest pain CODE STATUS: Full Code Discussed with: Patient, sister Anticipated discharge place: Home Past Medical History Past Medical History: CVA/TIA, Diabetes Mellitus, Hypertension, Sleep Apnea/CPAP/BIPAP Additional Past Medical History / Comment(s): Parkinsons. diet controlled DM History of Any Multi-Drug Resistant Organisms: None Reported Past Surgical History: Hernia Repair Additional Past Surgical History / Comment(s): benign tumor removed lt lower jaw and artifical jaw inserted, cataract- bilat, sinus surgery, carpal tunnel surgery right wrist 1969' Past Anesthesia/Blood Transfusion Reactions: Motion Sickness Past Psychological History: Anxiety Smoking Status: Never smoker Past Alcohol Use History: None Reported Past Drug Use History: None Reported - Past Family History Father Family Medical History: Cancer, Diabetes Mellitus Mother Family Medical History: CVA/TIA Medications and Allergies Home Medications Medication Instructions Recorded Confirmed Type Aspirin EC [Ecotrin Low Dose] 81 mg PO DAILY@0800 01/09/22 10/25/23 History Meclizine HCl 25 mg PO HS@2100 01/09/22 10/25/23 History Vit C/E/Zn/Coppr/Lutein/Zeaxan 1 cap PO BID@0800,1700 01/09/22 10/25/23 History [Preservision Areds 2 Softgel] Carbidopa-Levodopa 25-100 mg 1 tab PO TID@0800,1200,1700 09/29/23 10/25/23 History [Sinemet 25-100 mg] Escitalopram [Lexapro] 20 mg PO DAILY@0800 10/12/23 10/25/23 History Acetaminophen Tab [Tylenol] 650 mg PO Q6HR PRN tab 10/22/23 10/25/23 Rx Ciprofloxacin Ophth Soln [Ciloxan 2 drops BOTH EYES Q4HR 10/25/23 10/25/23 Histo ry 0.3% Ophth Soln] Clopidogrel [Plavix] 75 mg PO DAILY@0800 10/25/23 10/25/23 History Collagenase [Santyl Ointment] 1 applic TOPICAL DAILY 10/25/23 10/25/23 History Enoxaparin [Lovenox] 40 mg SQ DAILY@0800 10/25/23 10/25/23 History Ensure Enlive 120 - 237 ml PO TID@0800,1200,1700 10/25/23 10/25/23 History INSULIN ASPART (NovoLOG) [NovoLOG See Protocol SQ 10/25/23 10/25/23 History (formulary)] ACHS@07,11,1630,2130 Ipratropium-Albuterol Nebulize 3 ml INHALATION RT-QID@00,06,12,18 10/25/23 10/25/23 History [Duoneb 0.5 mg-3 mg/3 ml Soln] Magnesium Hydroxide [Milk of 7,200 mg PO DAILY PRN 10/25/23 10/25/23 History Magnesia Concentrate] Na Phos,M-B/Na Phos,Di-Ba [Fleet 133 ml RECTAL DAILY PRN 10/25/23 10/25/23 History Adult] Pantoprazole [Protonix] 40 mg PO DAILY@0600 10/25/23 10/25/23 History bisacodyL [Dulcolax] 10 mg RECTAL DAILY PRN 10/25/23 10/25/23 History Piperacillin-Tazobactam [Zosyn] 3.375 gm IVPB Q8HR #42 each 10/27/23 Rx Allergies Allergy/AdvReac Type Severity Reaction Status Date / Time cephalexin Allergy Itching Verified 10/25/23 11:30 cockroach Allergy Unknown Verified 10/25/23 11:30 cyclobenzaprine Allergy Chest Pain Verified 10/25/23 11:30 morphine AdvReac Hallucinati Verified 10/25/23 11:30 ons Physical Exam Vitals: Vital Signs Temp Pulse Resp BP Pulse Ox 02/23/24 04:00 98 18 108/70 97 02/23/24 02:00 93 16 143/101 96 02/22/24 23:22 98.4 F 90 19 138/79 98 Intake and Output 02/22/24 02/22/24 02/23/24 14:59 22:59 06:59 Other: Weight 102.058 kg Results CBC & Chem 7: 02/22/24 23:38 02/22/24 23:38 Labs: Abnormal Lab Results - Last 24 Hours (Table) 02/22/24 02/22/24 02/22/24 Range/Units 23:38 23:38 23:38 WBC 14.7 H (3.8-10.6) k/uL Neutrophils # 13.4 H (1.3-7.7) k/uL Lymphocytes # 0.6 L (1.0-4.8) k/uL PT 12.9 H (10.0-12.5) sec INR 1.2 H (<1.2) D-Dimer 1.93 H (<0.60) mg/L FEU Glucose 179 H (74-99) mg/dL Total Bilirubin 2.2 H (0.2-1.3) mg/dL AST 224 H (17-59) U/L Alkaline Phosphatase 233 H (38-126) U/L
[2024-02-23 06:11] LABS: Glucose,Whole Blood 152 mg/dL (70-110)
[2024-02-23] MEDS: ATORVASTATIN 80 MG TAB PO STA (06:12)
[2024-02-23] MEDS ORDERED: MIDODRINE 5 MG TAB PO PRN (08:21)
--- NOTE | 2024-02-23 08:57 | P.PN ---
Subjective Progress Note Date: 02/23/24 Hospital course: Patient is a very pleasant 68-year-old male with a past medical history of hypertension, hyperlipidemia, CVA, insulin-dependent diabetes mellitus, Lewy body dementia, Parkinson's disease, and obstructive sleep apnea. He presented to the emergency department 02/22/2024 with a chief complaint of chest pain. Altered facility, patient evaluation emergency department. Vital signs upon arrival show blood pressure 138/79, heart rate 90, respiratory rate 19, temperature 98.4 F, and SpO2 98% on room air. EKG showing normal sinus rhythm at 91 bpm with right bundle branch block. Chest x-ray completed negative for acute cardiopulmonary process. Labs completed and reviewed. CBC showing leukocytosis with WBC count of 14.7 otherwise normal findings. Coagulation profile showing elevated PT of 12.9, INR of 1.2, and D-dimer of 1.93. BMP unremarkable with exception of mild hyperglycemia with glucose of 179. Liver profile showing hyperbilirubinemia with elevated transaminases with total bili of 2.2, AST of 224, and alkaline phosphatase of 233. Troponin was negative at less than 0.012. CTA chest completed negative for PE. Patient was admitted under our services with consultation to cardiology. Gallbladder ultrasound was ordered and results reviewed. Radiologist reporting findings concerning for acute cholecystitis with distended gallbladder, wall thickening with pericholecystic fluid and tumefactive sludge. Consult placed to general surgeon. Physical exam: Vital signs reviewed and stable. General: Nontoxic, no distress and appears stated age. Derm: Skin warm and dry, normal coloration for ethnicity. Head: Atraumatic, normocephalic and symmetric. Eyes: EOMs intact, no lid lag, and anicteric sclera Mouth: no lip lesions, mucus membranes moist Cardiovascular: regular rate and rhythm with normal S1S2, no murmur, positive posterior tibial pulses bilaterally, and cap refill < 2 seconds. Lungs: Respirations even, regular, and unlabored on room air. Lungs CTA bilaterally, no rhonchi, no rales, no wheezing, and no accessory muscle usage. Abdominal: soft, tenderness reported upon palpation to epigastric region and right upper quadrant, no guarding, no appreciable organomegaly Ext: ROM intact. No gross muscle atrophy, no edema, no contractures Neuro: Speech clear, face symmetrical and CN II-XII grossly intact with no noted focal neuro deficits Psych: Alert and oriented to person, place, time, and situation. Appropriate and pleasant affect. Assessment and Plan of Care: Acute Cholecystitis Chest/Epigastric pain Hyperbilirubinemia with elevated liver enzymes Leukocytosis Hypertension Hyperlipidemia CVA Elevated D-dimer, CTA negative for PE -Cardiology consulted, discussed case with replanter and cardiac GRAVITY MANAGER and informed them that suspect acute cholecystitis. -Replaced for gallbladder ultrasound and upon follow-up findings report concerning for acute cholecystitis with distended gallbladder and wall thickening with pericholecystic fluid and tumefactive sludge reported. -Order placed for general surgery consult and called and discussed case with general surgeon. -Continue telemetry monitoring -Order was placed for repeat morning labs including CBC, CMP, and magnesium, currently pending -NPO pending evaluation by general surgery. -Gentle IV fluid hydration with lactated Ringer's at 75 cc/h. -Acute coronary event ruled out, troponins negative. -Hold Plavix pending eval by general surgery. Patient to continue with aspirin 81 mg daily, atorvastatin 80 mg nightly, and midodrine 2.5 mg every 8 hours as needed for hypotension. Lewy body dementia Parkinson's disease -Continue carbidopa levodopa 25-100 mg tablets 3 times daily, Aricept 10 mg nightly, Seroquel 25 mg daily and Keppra 500 mg twice daily. -Fall precautions in place. Insulin-dependent diabetes mellitus with hyperglycemia Continue glycemic protocol with NovoLog sliding scale. Blood glucose checks every 6 hours while NPO. Data and imaging reviewed: Gallbladder ultrasound was ordered and results reviewed. Radiologist reporting findings concerning for acute cholecystitis with distended gallbladder, wall thickening with pericholecystic fluid and tumefactive sludge reported. Vital signs reviewed. Blood pressure 92/69, heart rate 96, respiratory rate 18, and SpO2 of 97% on room air. Labs reviewed. CBC showing leukocytosis with WBC count of 14.7 otherwise norm al findings. Coagulation profile showing elevated PT of 12.9, INR of 1.2, and D-dimer of 1.93. BMP unremarkable with exception of mild hyperglycemia with glucose of 179. Liver profile showing hyperbilirubinemia with elevated transaminases with total bili of 2.2, AST of 224, and alkaline phosphatase of 233. Troponin was negative at less than 0.012 2 draws. CODE STATUS: Full code DVT prophylaxis: Lovenox Discussed with: Patient, replanter, cardiac GRAVITY MANAGER, general surgery PA and general surgeon. Anticipated discharge date: Pending clinical course Anticipated discharge place: Pending clinical course Patient was seen independently by Nurse Pracitioner. This document was prepared using [employer] dictation software. Please allow for errors in journeyman powerhouse operator, while rare they do occur. Virgilio Coello GRAVITY MANAGER rendered care for this patient independently, reviewed the findings and plan as documented in the note above. I did not physically speak with or examine the patient on this date Objective - Vital Signs Vital signs: Vital Signs Temp 98.4 F 02/22/24 23:22 Pulse 96 02/23/24 06:00 Resp 18 02/23/24 06:00 BP 92/69 02/23/24 06:00 Pulse Ox 97 02/23/24 04:00 FiO2 Intake & Output 02/22/24 02/23/24 02/23/24 18:59 06:59 18:59 Weight 102.058 kg - Labs CBC & Chem 7: 02/23/24 11:47 02/23/24 11:47 Labs: Abnormal Lab Results - Last 24 Hours (Table) 02/22/24 02/22/24 02/22/24 Range/Units 23:38 23:38 23:38 WBC 14.7 H (3.8-10.6) k/uL Neutrophils # 13.4 H (1.3-7.7) k/uL Lymphocytes # 0.6 L (1.0-4.8) k/uL PT 12.9 H (10.0-12.5) sec INR 1.2 H (<1.2) D-Dimer 1.93 H (<0.60) mg/L FEU Glucose 179 H (74-99) mg/dL POC Glucose (mg/dL) (70-110) mg/dL Total Bilirubin 2.2 H (0.2-1.3) mg/dL AST 224 H (17-59) U/L Alkaline Phosphatase 233 H (38-126) U/L 02/23/24 Range/Units 06:09 WBC (3.8-10.6) k/uL Neutrophils # (1.3-7.7) k/uL Lymphocytes # (1.0-4.8) k/uL PT (10.0-12.5) sec INR (<1.2) D-Dimer (<0.60) mg/L FEU Glucose (74-99) mg/dL POC Glucose (mg/dL) 152 H (70-110) mg/dL Total Bilirubin (0.2-1.3) mg/dL AST (17-59) U/L Alkaline Phosphatase (38-126) U/L
[2024-02-23] MEDS: INSULIN ASPART (NovoLOG) 100 UNIT/ML VIAL SQ SCH ×2 (09:07→11:55)
--- NOTE | 2024-02-23 10:18 | US ---
EXAMINATION TYPE: US gallbladder DATE OF EXAM: 02/23/2024 COMPARISON: EXAMINATION TYPE: US gallbladder DATE OF EXAM: 02/23/2024 COMPARISON: CT abdomen and pelvis 10/24/2023, CTA chest 02/23/2024 CLINICAL INDICATION: Male, 68 years old with history of epigastric pain, RUQ tenderness upon palpatio n; Pain, abnormal labs TECHNIQUE: Multiple sonographic images of the right upper quadrant are obtained. FINDINGS: EXAM MEASUREMENTS: Liver Length: 15.9 cm Gallbladder Wall: 0.6 cm CBD: 0.5 cm WOOD CABINET FINISHER NOTES: VERY limited exam- pt has Parkinson's- immobile, not a good ultrasound candidate Pancreas: Obscured by bowel gas Liver: Very limited views Gallbladder: Distended, thickened wall with pericholecystic fluid, ?sludge vs. possible intramural m ass Evidence for sonographic Gandhi's sign: No CBD: wnl Right Kidney: Obscured by overlying bowel gas The pancreas and right kidney are obscured by overlying bowel gas. Limited visualization of liver wit hout focal lesion identified. Gallbladder is distended with wall thickening identified. Pericholecyst ic fluid suggested. No shadowing calculi identified. Biliary sludge with additional tumefactive sludg e identified. Negative sonographic Gandhi sign. Common bile duct is within normal limits. IMPRESSION: Extremely limited exam. Findings concerning for acute cholecystitis with distended gallbladder, wall thickening, pericholecys tic fluid, and tumefactive sludge. However negative sonographic Gandhi's sign. Surgical consultation is recommended with consideration for nuclear medicine HIDA scan as clinically indicated.
[2024-02-23] MEDS: CARBIDOPA-LEVODOPA 25-100 MG 1 EACH TAB PO SCH (10:22)
[2024-02-23] MEDS: KETOROLAC 15 MG/ML 1 ML VIAL IVP STA (10:43)
--- NOTE | 2024-02-23 11:01 | P.CRDCN ---
History of Present Illness History of present illness: HISTORY OF PRESENT ILLNESS: This is a 68-year-old male with a past medical history significant for normal coronary arteries, diabetes, obstructive sleep apnea, Parkinson's disease, and CVA/TIA. Patient follows in the office with Dr. Bird. We have been asked to see the patient in consultation for chest pain. Patient examined at the bedside in the emergency room. Patient presented to the hospital with a chief complaint of chest pain. However upon evaluation this morning the patient seems to be having more abdominal pain and epigastric pain rather than chest pain. Patient is pointing to his epigastric region and along both sides of his abdomen when asked where his pain is at. He reports nausea over the past few days as well. He reports mild shortness of breath. He states his epigastric discomfort has been present for the past 5 to 6 days. DIAGNOSTICS: - EKG reveals sinus mechanism with right bundle branch block. No signs of acute ischemia.. - Chest xray low lung volumes without acute pulmonary process. Chest CTA: Negative for pulmonary embolism. Gallbladder ultrasound: Findings concerning for acute cholecystitis with distended gallbladder, wall thickening, Peris cholecystic fluid, and tumefactive sludge. - Laboratory data: WBC 14.7. Hemoglobin 14.0. Platelet count 252. D-dimer 1.93. Sodium 138. Potassium 3.8. Bilirubin 2.2. AST 224. ALT 20. Troponin negative x 2. proBNP 291. - Current home cardiac medications include Plavix 75 mg daily, aspirin 81 mg daily. - Most recent echocardiogram obtained in May 2023 reveals ejection fraction 50 to 55%, trace TR - Cardiac catheterization history: September 2023 revealing normal coronary arteries REVIEW OF SYSTEMS: At the time of my exam: CONSTITUTIONAL: Denies fever or chills. HEENT: Denies blurred vision, vision changes, or eye pain. Denies hemoptysis CARDIOVASCULAR: Denies chest pain. Denies orthopnea. Denies PND. Denies palpitations RESPIRATORY: Denies shortness of breath. GASTROINTESTINAL: Denies abdominal pain. Denies nausea or vomiting. HEMATOLOGIC: Denies bleeding disorders. GENITOURINARY: Denies any blood in urine. SKIN: Denies pruitis. Denies rash. PHYSICAL EXAM: VITAL SIGNS: Reviewed. GENERAL: Well-developed in no acute distress. HEENT: Head is normocephalic. Pupils are equal, round. Sclerae anicteric. Mucous membranes of the mouth are moist. Neck supple. No JVD or thyromegaly LUNGS: Respirations even and unlabored. Lungs essentially clear to auscultation bilaterally. HEART: Regular rate and rhythm. S1 and S2 heard. Systolic murmur noted. ABDOMEN: Soft. Nondistended. Mild tenderness with palpation. EXTREMITIES: Normal range of motion. No clubbing or cyanosis. Peripheral pulses intact. No lower extremity edema NEUROLOGIC: Awake and alert. Oriented x 3. ASSESSMENT: Epigastric/abdominal pain Leukocytosis Possible acute cholecystitis Chest pain, noncardiac, patient with epigastric/abdominal pain rather than chest pain Normal coronary arteries, per cardiac catheterization 09/2023 Obstructive sleep apnea, noncompliant with CPAP Diabetes History of Parkinson disease History of CVA/TIA PLAN: An acute coronary event has been ruled out Resume home cardiac medications General surgery has been consulted for evaluation No further inpatient recommendations from a cardiac standpoint We will sign off. Please reconsult if needed. Nurse practitioner note has been reviewed by physician. Signing provider agrees with the documented findings, assessment, and plan of care documented by FEATHER BALER as a scribe. Past Medical History Past Medical History: CVA/TIA, Diabetes Mellitus, Hypertension, Sleep Apnea/CPAP/BIPAP Additional Past Medical History / Comment(s): Parkinsons. diet controlled DM History of Any Multi-Drug Resistant Organisms: None Reported Past Surgical History: Hernia Repair Additional Past Surgical History / Comment(s): benign tumor removed lt lower jaw and artifical jaw inserted, cataract- bilat, sinus surgery, carpal tunnel surgery right wrist 1969' Past Anesthesia/Blood Transfusion Reactions: Motion Sickness Past Psychological History: Anxiety Smoking Status: Never smoker Past Alcohol Use History: None Reported Past Drug Use History: None Reported - Past Family History Father Family Medical History: Cancer, Diabetes Mellitus Mother Family Medical History: CVA/TIA Medications and Allergies Home Medications Medication Instructions Recorded Confirmed Type Aspirin EC [Ecotrin Low Dose] 81 mg PO DAILY@0701/09/22 02/23/24 History Meclizine HCl 25 mg PO HS@1900 01/09/22 02/23/24 History Vit C/E/Zn/Coppr/Lutein/Zeaxan 2 cap PO DAILY@0700 01/09/22 02/23/24 History [Preservision Areds 2 Softgel] Carbidopa-Levodopa 25-100 mg 1 tab PO TID@1100,1400,1700 09/29/23 02/23/24 History [Sinemet 25-100 mg] Escitalopram [Lexapro] 20 mg PO DAILY@0700 10/12/23 02/23/24 History Clopidogrel [Plavix] 75 mg PO DAILY@0700 10/25/23 02/23/24 History INSULIN ASPART (NovoLOG) [NovoLOG See Protocol SQ AC-BID@0700,1600 10/25/23 02/23/24 History (formulary)] Pantoprazole [Protonix] 40 mg PO DAILY@0700 10/25/23 02/23/24 History Acetaminophen Tab [Tylenol] 650 mg PO Q6HR PRN 02/23/24 02/23/24 History Donepezil [Aricept] 10 mg PO HS@1900 02/23/24 02/23/24 History Loratadine 10 mg PO HS@1900 02/23/24 02/23/24 History Midodrine HCl [ProAmantine] 2.5 mg PO Q8H PRN 02/23/24 02/23/24 History QUEtiapine [SEROquel] 25 mg PO DAILY@1700 02/23/24 02/23/24 History levETIRAcetam [Keppra] 500 mg PO BID@0700,1900 02/23/24 02/23/24 History Allergies Allergy/AdvReac Type Severity Reaction Status Date / Time cephalexin Allergy Itching Verified 02/23/24 07:02 cockroach Allergy Unknown Verified 02/23/24 07:02 cyclobenzaprine Allergy Chest Pain Verified 02/23/24 07:02 morphine AdvReac Hallucinati Verified 02/23/24 07:02 ons Physical Exam Vitals: Vital Signs Temp Pulse Resp BP Pulse Ox 02/23/24 06:00 96 18 92/69 02/23/24 04:00 98 18 108/70 97 02/23/24 02:00 93 16 143/101 96 02/22/24 23:22 98.4 F 90 19 138/79 98 Intake and Output 02/22/24 02/23/24 02/23/24 22:59 06:59 14:59 Other: Weight 102.058 kg Results 02/22/24 23:38 02/22/24 23:38 Cardiac Enzymes 02/22/24 02/22/24 02/23/24 Range/Units 23:38 23:38 07:29 AST 224 H (17-59) U/L Troponin I <0.012 <0.012 (0.000-0.034) ng/mL Coagulation 02/22/24 Range/Units 23:38 PT 12.9 H (10.0-12.5) sec APTT 25.0 (22.0-30.0) sec CBC 02/22/24 Range/Units 23:38 WBC 14.7 H (3.8-10.6) k/uL RBC 5.14 (4.30-5.90) m/uL Hgb 14.0 (13.0-17.5) gm/dL Hct 44.4 (39.0-53.0) % Plt Count 252 (150-450) k/uL Comprehensive Metabolic Panel 02/22/24 Range/Units 23:38 Sodium 138 (137-145) mmol/L Potassium 3.8 (3.5-5.1) mmol/L Chloride 105 (98-107) mmol/L Carbon Dioxide 25 (22-30) mmol/L BUN 14 (9-20) mg/dL Creatinine 0.93 (0.66-1.25) mg/dL Glucose 179 H (74-99) mg/dL Calcium 8.7 (8.4-10.2) mg/dL AST 224 H (17-59) U/L ALT 20 (4-49) U/L Alkaline Phosphatase 233 H (38-126) U/L Total Protein 6.6 (6.3-8.2) g/dL Albumin 3.7 (3.5-5.0) g/dL Current Medications Generic Name Dose Route Start Last Admin Trade Name Freq PRN Reason Stop Dose Admin Aspirin 81 mg 02/24/24 07:00 Aspirin 81 Mg PO DAILY@0700 [facility] Atorvastatin Calcium 80 mg 02/23/24 21:00 Atorvastatin 80 Mg Tab PO HS [facility] Carbidopa/Levodopa 1 each 02/23/24 11:00 Carbidopa-Levodopa 25-100 Mg 1 Each Tab PO TID@1100,1400,1700 [facility] Clopidogrel Bisulfate 75 mg 02/24/24 07:00 Clopidogrel 75 Mg Tab PO DAILY@0700 [facility] Donepezil HCl 10 mg 02/23/24 19:00 Donepezil 10 Mg Tab PO HS@1900 [facility] Escitalopram Oxalate 20 mg 02/24/24 07:00 Escitalopram 20 Mg Tab PO DAILY@0700 [facility] Insulin Aspart 0 unit 02/23/24 07:30 Insulin Aspart (Novolog) 100 Unit/Ml Vial SQ ACHS [facility] Protocol Levetiracetam 500 mg 02/23/24 19:00 Levetiracetam 500 Mg Tab PO BID@0700,1900 [facility] Loratadine 10 mg 02/23/24 19:00 Loratadine 10 Mg Tab PO HS@1900 [facility] Meclizine HCl 25 mg 02/23/24 19:00 Meclizine 25 Mg Tab PO HS@1900 [facility] Midodrine 2.5 mg 02/23/24 08:21 Midodrine 5 Mg Tab PO Q8H PRN Blood Pressure - Low Nitroglycerin 0.4 mg 02/23/24 03:37 Nitroglycerin Sl Tabs 0.4 Mg Tab SUBLINGUAL Q5M PRN Chest Pain Pantoprazole Sodium 40 mg 02/24/24 07:00 Pantoprazole 40 Mg Tablet PO DAILY@0700 [facility] Quetiapine Fumarate 25 mg 02/23/24 17:00 Quetiapine 25 Mg Tab PO DAILY@1700 [facility] Intake and Output 02/22/24 02/23/24 02/23/24 22:59 06:59 14:59 Other: Weight 102.058 kg 02/22/24 23:38 02/22/24 23:38
--- NOTE | 2024-02-23 11:31 | P.GSCN ---
History of Present Illness Consult date: 02/23/24 History of present illness: CHIEF COMPLAINT: Chest pain Reason for consult acute cholecystitis HISTORY OF PRESENT ILLNESS: This is a 68-year-old male that presented to the hospital with complaints of chest pain and right upper quadrant abdominal pain. Patient reports that he has had the pain for about 5 days. Patient had elevated total bilirubin and AST and alk phos. Gallbladder ultrasound was completed that reported findings concerning for acute cholecystitis with distended gallbladder, wall thickening and pericholecystic fluid and sludge. Surgical service c onsulted for acute cholecystitis. Past surgical history does include appendectomy and hernia repair. Patient has been seen by cardiology service. They have signed off. No acute coronary syndrome reported. Patient seen and examined with Dr. Thorne PAST MEDICAL HISTORY: CVA/TIA, Diabetes Mellitus, Hypertension, Sleep Apnea/CPAP/BIPAP, Parkinson's, diet controlled diabetes mellitus PAST SURGICAL HISTORY: Appendectomy, hernia repair MEDICATIONS: See below ALLERGIES: See below SOCIAL HISTORY: No illicit drug use. REVIEW OF SYSTEMS: CONSTITUTIONAL: Denies fever or chills. HEENT: Denies blurred vision, vision changes, or eye pain. Denies hemoptysis CARDIOVASCULAR: Denies chest pain or pressure. RESPIRATORY: No shortness of breath. GASTROINTESTINAL: See HPI for pertinent findings HEMATOLOGIC: Denies bleeding disorders. GENITOURINARY: Denies any blood in urine or increased urinary frequency. SKIN: Denies pruitis. Denies rash. PHYSICAL EXAM: VITAL SIGNS: Reviewed GENERAL: Well-developed in no acute distress. HEENT: No sclera icterus. Extraocular movements grossly intact. Moist buccal mucosa. Head is atraumatic, normocephalic. No nasal drainage. ABDOMEN: Soft. Nondistended. Tenderness to palpation to the right upper quadrant NEUROLOGIC: Awake and alert LABORATORY DATA: WBC 14.7 Hgb 14 platelets 252 INR 1.2 Sodium 138 potassium 3.8 creatinine 0.93 Magnesium 1.7 Total bilirubin 2.2 AST 224 ALT 20 alk phos 223 Troponin negative x 2 IMAGING: Chest CTA no large or central pulmonary embolism Gallbladder ultrasound as stated above ASSESSMENT: 1. Acute cholecystitis. Abdominal ultrasound reports findings concerning for acute cholecystitis with distended gallbladder, wall thickening and pericholecystic fluid and sludge 2. Elevated LFTs and total bilirubin PLAN: -Patient is tentatively scheduled for laparoscopic cholecystectomy tomorrow with Dr. Thorne as long as his LFTs and bilirubin are improving -Repeat LFTs in a.m. -Hold Plavix -Start IV Zosyn -Continue IV fluids -Continue pain management Thank you for this consultation Physician Fruit And Vegetable Classer note has been reviewed by physician. Signing provider agrees with the documented findings, assessment, and plan of care. Past Medical History Past Medical History: CVA/TIA, Diabetes Mellitus, Hypertension, Sleep Apnea/CPAP/BIPAP Additional Past Medical History / Comment(s): Parkinsons. diet controlled DM History of Any Multi-Drug Resistant Organisms: None Reported Past Surgical History: Hernia Repair Additional Past Surgical History / Comment(s): benign tumor removed lt lower jaw and artifical jaw inserted, cataract- bilat, sinus surgery, carpal tunnel surgery right wrist 1969' Past Anesthesia/Blood Transfusion Reactions: Motion Sickness Past Psychological History: Anxiety Smoking Status: Never smoker Past Alcohol Use History: None Reported Past Drug Use History: None Reported - Past Family History Father Family Medical History: Cancer, Diabetes Mellitus Mother Family Medical History: CVA/TIA Medications and Allergies Home Medications Medication Instructions Recorded Confirmed Type Aspirin EC [Ecotrin Low Dose] 81 mg PO DAILY@69901/09/22 02/23/24 History Meclizine HCl 25 mg PO HS@1900 01/09/22 02/23/24 History Vit C/E/Zn/Coppr/Lutein/Zeaxan 2 cap PO DAILY@69901/09/22 02/23/24 History [Preservision Areds 2 Softgel] Carbidopa-Levodopa 25-100 mg 1 tab PO TID@1100,1400,1700 09/29/23 02/23/24 History [Sinemet 25-100 mg] Escitalopram [Lexapro] 20 mg PO DAILY@69910/12/23 02/23/24 History Clopidogrel [Plavix] 75 mg PO DAILY@69910/25/23 02/23/24 History INSULIN ASPART (NovoLOG) [NovoLOG See Protocol SQ AC-BID@0700,1600 10/25/23 02/23/24 History (formulary)] Pantoprazole [Protonix] 40 mg PO DAILY@0700 10/25/23 02/23/24 History Acetaminophen Tab [Tylenol] 650 mg PO Q6HR PRN 02/23/24 02/23/24 History Donepezil [Aricept] 10 mg PO HS@1900 02/23/24 02/23/24 History Loratadine 10 mg PO HS@1900 02/23/24 02/23/24 History Midodrine HCl [ProAmantine] 2.5 mg PO Q8H PRN 02/23/24 02/23/24 History QUEtiapine [SEROquel] 25 mg PO DAILY@1700 02/23/24 02/23/24 History levETIRAcetam [Keppra] 500 mg PO BID@0700,1900 02/23/24 02/23/24 History Allergies Allergy/AdvReac Type Severity Reaction Status Date / Time cephalexin Allergy Itching Verified 02/23/24 07:02 cockroach Allergy Unknown Verified 02/23/24 07:02 cyclobenzaprine Allergy Chest Pain Verified 02/23/24 07:02 morphine AdvReac Hallucinati Verified 02/23/24 07:02 ons Surgical - Exam Vital Signs Temp Pulse Resp BP Pulse Ox 98.4 F 90 19 138/79 98 02/22/24 23:22 02/22/24 23:22 02/22/24 23:22 02/22/24 23:22 02/22/24 23:22 Results - Labs 02/22/24 23:38 02/22/24 23:38 Abnormal Lab Results - Last 24 Hours (Table) 02/22/24 02/22/24 02/22/24 Range/Units 23:38 23:38 23:38 WBC 14.7 H (3.8-10.6) k/uL Neutrophils # 13.4 H (1.3-7.7) k/uL Lymphocytes # 0.6 L (1.0-4.8) k/uL PT 12.9 H (10.0-12.5) sec INR 1.2 H (<1.2) D-Dimer 1.93 H (<0.60) mg/L FEU Glucose 179 H (74-99) mg/dL POC Glucose (mg/dL) (70-110) mg/dL Total Bilirubin 2.2 H (0.2-1.3) mg/dL AST 224 H (17-59) U/L Alkaline Phosphatase 233 H (38-126) U/L 02/23/24 Range/Units 06:09 WBC (3.8-10.6) k/uL Neutrophils # (1.3-7.7) k/uL Lymphocytes # (1.0-4.8) k/uL PT (10.0-12.5) sec INR (<1.2) D-Dimer (<0.60) mg/L FEU Glucose (74-99) mg/dL POC Glucose (mg/dL) 152 H (70-110) mg/dL Total Bilirubin (0.2-1.3) mg/dL AST (17-59) U/L Alkaline Phosphatase (38-126) U/L Diabetes panel 02/22/24 Range/Units 23:38 Sodium 138 (137-145) mmol/L Potassium 3.8 (3.5-5.1) mmol/L Chloride 105 (98-107) mmol/L Carbon Dioxide 25 (22-30) mmol/L BUN 14 (9-20) mg/dL Creatinine 0.93 (0.66-1.25) mg/dL Glucose 179 H (74-99) mg/dL Calcium 8.7 (8.4-10.2) mg/dL AST 224 H (17-59) U/L ALT 20 (4-49) U/L Alkaline Phosphatase 233 H (38-126) U/L Total Protein 6.6 (6.3-8.2) g/dL Albumin 3.7 (3.5-5.0) g/dL Calcium panel 02/22/24 Range/Units 23:38 Calcium 8.7 (8.4-10.2) mg/dL Albumin 3.7 (3.5-5.0) g/dL Pituitary panel 02/22/24 Range/Units 23:38 Sodium 138 (137-145) mmol/L Potassium 3.8 (3.5-5.1) mmol/L Chloride 105 (98-107) mmol/L Carbon Dioxide 25 (22-30) mmol/L BUN 14 (9-20) mg/dL Creatinine 0.93 (0.66-1.25) mg/dL Glucose 179 H (74-99) mg/dL Calcium 8.7 (8.4-10.2) mg/dL Adrenal panel 02/22/24 Range/Units 23:38 Sodium 138 (137-145) mmol/L Potassium 3.8 (3.5-5.1) mmol/L Chloride 105 (98-107) mmol/L Carbon Dioxide 25 (22-30) mmol/L BUN 14 (9-20) mg/dL Creatinine 0.93 (0.66-1.25) mg/dL Glucose 179 H (74-99) mg/dL Calcium 8.7 (8.4-10.2) mg/dL Total Bilirubin 2.2 H (0.2-1.3) mg/dL AST 224 H (17-59) U/L ALT 20 (4-49) U/L Alkaline Phosphatase 233 H (38-126) U/L Total Protein 6.6 (6.3-8.2) g/dL Albumin 3.7 (3.5-5.0) g/dL
[2024-02-23 11:40] LABS: Glucose,Whole Blood 132 mg/dL (70-110)
[2024-02-23 12:10] LABS: HCT 41.6 % (39.0-53.0); HGB 13.4 gm/dL (13.0-17.5); MCH 27.3 pg (25.0-35.0); MCHC 32.2 g/dL (31.0-37.0); MCV 84.7 fL (80.0-100.0); Platelet Count 255 k/uL (150-450); RBC 4.91 m/uL (4.30-5.90); RDW 13.6 % (11.5-15.5); WBC 12.5 k/uL (3.8-10.6)
[2024-02-23 12:12] LABS: ALT 107 U/L (4-49); African American GFR (CKD) 88 (>60 ml/min/1.73 sqM); Albumin 3.4 g/dL (3.5-5.0); Albumin/Globulin Ratio 1.2; Alkaline Phosphatase 248 U/L (38-126); Anion Gap 7 mmol/L; Blood Urea Nitrogen 15 mg/dL (9-20); Calcium 8.6 mg/dL (8.4-10.2); Carbon Dioxide 26 mmol/L (22-30); Chloride 105 mmol/L (98-107); Globulin 2.8 g/dL; Glucose 135 mg/dL (74-99); Magnesium 1.8 mg/dL (1.6-2.3); Non-African American GFR(CKD) 76 (>60 ml/min/1.73 sqM); Potassium 3.9 mmol/L (3.5-5.1); Sodium 138 mmol/L (137-145); Total Bilirubin 4.1 mg/dL (0.2-1.3); Total Protein 6.2 g/dL (6.3-8.2)
[2024-02-23] MEDS: LACTATED RINGERS 1,000 ML IV SCH (12:17)
[2024-02-23] MEDS: PIPERACILLIN-TAZOBACTAM 3.375 GM in SODIUM CHLORIDE 0.9% 100 ML IVPB STA (12:18)
[2024-02-23] MEDS: PIPERACILLIN-TAZOBACTAM 3.375 GM in SODIUM CHLORIDE 0.9% 100 ML IVPB SCH (16:12)
[2024-02-23 17:18] LABS: AST 458 U/L (17-59)
[2024-02-23 18:01] LABS: Glucose,Whole Blood 113 mg/dL (70-110)
[2024-02-23] MEDS: levETIRAcetam 500 MG TAB PO SCH (18:41)
[2024-02-23] MEDS: DONEPEZIL 10 MG TAB PO SCH (18:42)
[2024-02-23] MEDS: LORATADINE 10 MG TAB PO SCH (18:42)
[2024-02-23] MEDS: MECLIZINE 25 MG TAB PO SCH (18:42)
[2024-02-23] MEDS: ATORVASTATIN 80 MG TAB PO SCH (20:56)
[2024-02-23] MEDS: QUEtiapine 25 MG TAB PO SCH (20:56)
[2024-02-24 00:27] LABS: Glucose,Whole Blood 116 mg/dL (70-110)
[2024-02-24 05:53] LABS: Glucose,Whole Blood 112 mg/dL (70-110)
[2024-02-24] MEDS: ASPIRIN 81 MG PO SCH (05:53)
[2024-02-24] MEDS: PANTOPRAZOLE 40 MG TABLET PO SCH (05:57)
[2024-02-24] MEDS: ESCITALOPRAM 20 MG TAB PO SCH (05:57)
[2024-02-24] MEDS ORDERED: CLOPIDOGREL 75 MG TAB PO SCH (07:00)
[2024-02-24 07:24] LABS: Basophils # (A) 0.1 k/uL (0-0.2); Basophils % (A) 1 %; Eosinophils # (A) 0.1 k/uL (0-0.7); Eosinophils % (A) 2 %; HCT 38.3 % (39.0-53.0); HGB 12.5 gm/dL (13.0-17.5); Lymphocytes # (A) 0.5 k/uL (1.0-4.8); Lymphocytes % (A) 7 %; MCH 28.3 pg (25.0-35.0); MCHC 32.7 g/dL (31.0-37.0); MCV 86.5 fL (80.0-100.0); Monocytes # (A) 0.4 k/uL (0-1.0); Monocytes % (A) 5 %; Neutrophils # (A) 6.5 k/uL (1.3-7.7); Neutrophils % (A) 84 %; Platelet Count 240 k/uL (150-450); RBC 4.43 m/uL (4.30-5.90); RDW 13.7 % (11.5-15.5); WBC 7.8 k/uL (3.8-10.6)
[2024-02-24 07:42] LABS: ALT 34 U/L (4-49); AST 184 U/L (17-59); African American GFR (CKD) 68 (>60 ml/min/1.73 sqM); Albumin/Globulin Ratio 1.1; Alkaline Phosphatase 224 U/L (38-126); Anion Gap 3 mmol/L; Blood Urea Nitrogen 20 mg/dL (9-20); Calcium 8.5 mg/dL (8.4-10.2); Carbon Dioxide 28 mmol/L (22-30); Chloride 106 mmol/L (98-107); Globulin 2.8 g/dL; Glucose 102 mg/dL (74-99); Non-African American GFR(CKD) 58 (>60 ml/min/1.73 sqM); Potassium 3.8 mmol/L (3.5-5.1); Sodium 137 mmol/L (137-145); Total Bilirubin 4.5 mg/dL (0.2-1.3); Total Protein 5.8 g/dL (6.3-8.2)
[2024-02-24] MEDS ORDERED: ASPIRIN 325 MG TAB PO SCH (09:00)
[2024-02-24] MEDS: ENOXAPARIN 40 MG/0.4 ML SYRINGE SQ SCH (09:46)
[2024-02-24 10:57] LABS: Chol/HDL Ratio 4.16 Ratio; LDL Cholesterol,Calculated 67.5 mg/dL (0.0-131.0); VLDL Calculation 12.96 mg/dL (5.00-40.00)
--- NOTE | 2024-02-24 11:09 | P.PN ---
Subjective Progress Note Date: 02/24/24 Hospital course: Patient is a very pleasant 68-year-old male with a past medical history of hypertension, hyperlipidemia, CVA, insulin-dependent diabetes mellitus, Lewy body dementia, Parkinson's disease, and obstructive sleep apnea. He presented to the emergency department 02/22/2024 with a chief complaint of chest pain. Altered facility, patient evaluation emergency department. Vital signs upon arrival show blood pressure 138/79, heart rate 90, respiratory rate 19, temperature 98.4 F, and SpO2 98% on room air. EKG showing normal sinus rhythm at 91 bpm with right bundle branch block. Chest x-ray completed negative for acute cardiopulmonary process. Labs completed and reviewed. CBC showing leukocytosis with WBC count of 14.7 otherwise normal findings. Coagulation profile showing elevated PT of 12.9, INR of 1.2, and D-dimer of 1.93. BMP unremarkable with exception of mild hyperglycemia with glucose of 179. Liver profile showing hyperbilirubinemia with elevated transaminases with total bili of 2.2, AST of 224, and alkaline phosphatase of 233. Troponin was negative at less than 0.012. CTA chest completed negative for PE. Patient was admitted under our services with consultation to cardiology. Gallbladder ultrasound was ordered and results reviewed. Radiologist reporting findings concerning for acute cholecystitis with distended gallbladder, wall thickening with pericholecystic fluid and tumefactive sludge. Consult placed to general surgeon. Physical exam: Patient seen and fully evaluated at bedside this morning. Patient was sleeping but easily awoken via verbal and tactile stimuli. Patient continues to have reports of pain to right upper quadrant upon palpation. Denies any other complaints at this time. Vital signs reviewed and stable. General: Nontoxic, no distress and appears stated age. Derm: Skin warm and dry, normal coloration for ethnicity. Head: Atraumatic, normocephalic and symmetric. Eyes: EOMs intact, no lid lag, and anicteric sclera Mouth: no lip lesions, mucus membranes moist Cardiovascular: regular rate and rhythm with normal S1S2, no murmur, positive posterior tibial pulses bilaterally, and cap refill < 2 seconds. Lungs: Respirations even, regular, and unlabored on room air. Lungs CTA bilaterally, no rhonchi, no rales, no wheezing, and no accessory muscle usage. Abdominal: soft, tenderness reported upon palpation to epigastric region and right upper quadrant, no guarding, no appreciable organomegaly Ext: ROM intact. No gross muscle atrophy, no edema, no contractures Neuro: Speech clear, face symmetrical and CN II-XII grossly intact with no noted focal neuro deficits Psych: Alert and oriented to person and place confused to time and situation, but does show episodes of increased confusion. Assessment and Plan of Care: VRE Bacteremia Acute Cholecystitis Chest/Epigastric pain Hyperbilirubinemia with elevated liver enzymes Leukocytosis Hypertension Hyperlipidemia CVA Elevated D-dimer, CTA negative for PE -Cardiology evaluated, discussed case with java development team lead and cardiac CUT IN STATION OPERATOR and acute coronary event was ruled out. -Gallbladder ultrasound showing concerns for acute cholecystitis with distended gallbladder and wall thickening with pericholecystic fluid and tumefactive sludge reported. -General surgery following, discussed case with general surgeon and general surgery PA, patient scheduled for laparoscopic cholecystectomy later today. -Infectious disease consulted for VRE bacteremia -Order placed for urinalysis with reflex culture. -Continue telemetry monitoring -NPO pending completion of surgery -Gentle IV fluid hydration with lactated Ringer's at 75 cc/h. -Hold Plavix pending surgery. -Patient to continue with aspirin 81 mg daily, atorvastatin 80 mg nightly, and midodrine 2.5 mg every 8 hours as needed for hypotension. -Patient started on daptomycin 430 mg every 24 hours, will monitor renal function closely for any signs of toxicity. -Order placed to repeat blood cultures daily until negative. Lewy body dementia Parkinson's disease -Continue carbidopa levodopa 25-100 mg tablets 3 times daily, Aricept 10 mg nightly, Seroquel 25 mg daily and Keppra 500 mg twice daily. -Fall precautions in place. Insulin-dependent diabetes mellitus with hyperglycemia Continue glycemic protocol with NovoLog sliding scale. Blood glucose checks every 6 hours while NPO. Data and imaging reviewed: Gallbladder ultrasound reporting findings concerning for acute cholecystitis with distended gallbladder, wall thickening with pericholecystic fluid and tumefactive sludge reported. Blood cultures 1 of 2 sets positive for VRE, second culture pending Vital signs reviewed. Blood pressure 108/64, heart rate 70, respiratory rate 16, temp 98.4 F, and SpO2 of 90% on room air. Labs reviewed. CBC showing mild normocytic anemia with hemoglobin of 12.5 otherwise normal findings showing resolution of leukocytosis with WBC count of 7.8. BMP unremarkable. Liver profile showing elevated total bili of 4.5, AST of 184, and alkaline phosphatase of 224. Albumin was low at 3.0. Lipid profile unremarkable with the exception of low HDL of 25.5. CODE STATUS: Full code DVT prophylaxis: Lovenox Discussed with: Patient, general surgery PA and general surgeon. Anticipated discharge date: Pending clinical course Anticipated discharge place: Pending clinical course Patient was seen independently by Nurse Pracitioner. This document was prepared using [employer] dictation software. Please allow for errors in security systems integrator, while rare they do occur. Virgilio Coello NP rendered care for this patient independently, reviewed the findings and plan as documented in the note above. I did not physically speak with or examine the patient on this date. Objective - Vital Signs Vital signs: Vital Signs Temp 98.4 F 02/24/24 07:00 Pulse 70 02/24/24 07:00 Resp 16 02/24/24 07:00 BP 108/64 02/24/24 07:00 Pulse Ox 98 02/24/24 07:00 FiO2 Intake & Output 02/23/24 02/24/24 02/24/24 18:59 06:59 18:59 Weight 102.058 kg Other: Voiding Method Incontinent # Voids 0 - Labs CBC & Chem 7: 02/24/24 14:14 02/24/24 06:58 Labs: Abnormal Lab Results - Last 24 Hours (Table) 02/23/24 02/23/24 02/23/24 Range/Units 11:39 11:47 11:47 WBC 12.5 H (3.8-10.6) k/uL Hgb (13.0-17.5) gm/dL Hct (39.0-53.0) % Lymphocytes # (1.0-4.8) k/uL Glucose 135 H (74-99) mg/dL POC Glucose (mg/dL) 132 H (70-110) mg/dL Total Bilirubin 4.1 H (0.2-1.3) mg/dL AST 458 H (17-59) U/L ALT 107 H (4-49) U/L Alkaline Phosphatase 248 H (38-126) U/L Total Protein 6.2 L (6.3-8.2) g/dL Albumin 3.4 L (3.5-5.0) g/dL 02/23/24 02/24/2402/23/24 Range/Units 17:59 00:26 05:52 WBC (3.8-10.6) k/uL Hgb (13.0-17.5) gm/dL Hct (39.0-53.0) % Lymphocytes # (1.0-4.8) k/uL Glucose (74-99) mg/dL POC Glucose (mg/dL) 113 H 116 H 112 H (70-110) mg/dL Total Bilirubin (0.2-1.3) mg/dL AST (17-59) U/L ALT (4-49) U/L Alkaline Phosphatase (38-126) U/L Total Protein (6.3-8.2) g/dL Albumin (3.5-5.0) g/dL 02/24/24 02/24/24 Range/Units 06:58 06:58 WBC (3.8-10.6) k/uL Hgb 12.5 L (13.0-17.5) gm/dL Hct 38.3 L (39.0-53.0) % Lymphocytes # 0.5 L (1.0-4.8) k/uL Glucose 102 H (74-99) mg/dL POC Glucose (mg/dL) (70-110) mg/dL Total Bilirubin 4.5 H (0.2-1.3) mg/dL AST 184 H (17-59) U/L ALT (4-49) U/L Alkaline Phosphatase 224 H (38-126) U/L Total Protein 5.8 L (6.3-8.2) g/dL Albumin 3.0 L (3.5-5.0) g/dL
[2024-02-24 11:58] LABS: Glucose,Whole Blood 78 mg/dL (70-110)
[2024-02-24] MEDS: IV FLUID CONTINUATION 1,000 ML IV ONE (12:21)
[2024-02-24] MEDS ORDERED: fentaNYL (PF) 50 MCG/ML 2 ML AMP IV PRN (12:26)
[2024-02-24] MEDS: ONDANSETRON 4 MG/2 ML VIAL IVP STA (12:26)
[2024-02-24] MEDS: DEXAMETHASONE SOD PHOSPHATE 4 MG/ML 1 ML VIAL IVP STA (12:29)
[2024-02-24] MEDS: DEXAMETHASONE SOD PHOSPHATE 4 MG/ML 1 ML VIAL IV ONE (12:29)
[2024-02-24] MEDS ORDERED: ROCURONIUM 10 MG/ML (5 ML VIAL) IV ONE (13:10)
[2024-02-24] MEDS ORDERED: PROPOFOL 10 MG/ML 20 ML VIAL IV ONE (13:10)
[2024-02-24] MEDS ORDERED: PHENYLEPHRINE 10 MG/ML VIAL ONE (13:10)
[2024-02-24] MEDS ORDERED: ALBUMIN HUMAN 5% (25gm) 500 ML VIAL IVPB ONE (13:10)
[2024-02-24] MEDS ORDERED: SUCCINYLCHOLINE CHLORIDE 200 MG/10 ML VIAL IV ONE (13:10)
[2024-02-24] MEDS ORDERED: fentaNYL (PF) 50 MCG/ML 2 ML AMP ONE (13:10)
[2024-02-24] MEDS: LIDOCAINE 1%-EPI 1:100,000 20 ML VIAL SQ ONE (13:30)
--- NOTE | 2024-02-24 14:03 | P.PN ---
Subjective Progress Note Date: 02/24/24 CHIEF COMPLAINT: Acute cholecystitis HISTORY OF PRESENT ILLNESS: Patient does report right upper quadrant abdominal pain and nausea this morning. He is afebrile. WBC down from 12.5-7.8. Total bilirubin 4.1 up to 4.5 AST trending down ALT normalized alk phos decreasing. Patient with positive blood culture with VRE PHYSICAL EXAM: VITAL SIGNS: Reviewed. GENERAL: no acute distress. ABDOMEN: Soft. Nondistended. Nontender. NEUROLOGIC: Alert and oriented. Cranial nerves II through XII grossly intact. ASSESSMENT: 1. Acute cholecystitis. Abdominal ultrasound reports findings concerning for acute cholecystitis with distended gallbladder, wall thickening and pericholecystic fluid and sludge 2. Elevated LFTs improving. Total bilirubin slightly increased to 4.5. Patient may have passed stone. 3. Bacteremia PLAN: -Patient scheduled for laparoscopic cholecystectomy today with Dr. Thorne -Continue antibiotics. Antibiotics adjusted per medicine service. Agree with infectious disease consult. Physician Commercial Lines Account Executive note has been reviewed by physician. Signing provider agrees with the documented findings, assessment, and plan of care. Objective - Vital Signs Vital signs: Vital Signs Temp 99.0 F 02/24/24 12:03 Pulse 76 02/24/24 12:03 Resp 16 02/24/24 12:03 BP 143/82 02/24/24 12:03 Pulse Ox 99 02/24/24 12:03 FiO2 Intake & Output 02/23/24 02/24/24 02/24/24 18:59 06:59 18:59 Weight 102.058 kg Other: Voiding Method Incontinent # Voids 0 - Labs CBC & Chem 7: 02/24/24 06:58 02/24/24 06:58 Labs: Abnormal Lab Results - Last 24 Hours (Table) 02/23/24 02/23/24 02/24/24 Range/Units 11:47 17:59 00:26 Hgb (13.0-17.5) gm/dL Hct (39.0-53.0) % Lymphocytes # (1.0-4.8) k/uL Glucose (74-99) mg/dL POC Glucose (mg/dL) 113 H 116 H (70-110) mg/dL Total Bilirubin (0.2-1.3) mg/dL AST 458 H (17-59) U/L Alkaline Phosphatase (38-126) U/L Total Protein (6.3-8.2) g/dL Albumin (3.5-5.0) g/dL HDL Cholesterol (40.00-60.00) mg/dL 02/24/24 02/24/24 02/24/24 Range/Units 05:52 06:58 06:58 Hgb 12.5 L (13.0-17.5) gm/dL Hct 38.3 L (39.0-53.0) % Lymphocytes # 0.5 L (1.0-4.8) k/uL Glucose 102 H (74-99) mg/dL POC Glucose (mg/dL) 112 H (70-110) mg/dL Total Bilirubin 4.5 H (0.2-1.3) mg/dL AST 184 H (17-59) U/L Alkaline Phosphatase 224 H (38-126) U/L Total Protein 5.8 L (6.3-8.2) g/dL Albumin 3.0 L (3.5-5.0) g/dL HDL Cholesterol 25.50 L (40.00-60.00) mg/dL Microbiology - Last 24 Hours (Table) 02/23/24 12:10 Blood Culture Gram Stain - Preliminary Blood Blood Culture - Preliminary Molecular ID
[2024-02-24 14:30] LABS: HCT 31.9 % (39.0-53.0); HGB 10.8 gm/dL (13.0-17.5); MCH 28.7 pg (25.0-35.0); MCHC 33.7 g/dL (31.0-37.0); MCV 85.2 fL (80.0-100.0); Mean Platelet Volume 7.9; Platelet Count 224 k/uL (150-450); RBC 3.74 m/uL (4.30-5.90); RDW 13.7 % (11.5-15.5); WBC 7.7 k/uL (3.8-10.6)
[2024-02-24] MEDS: SODIUM CHLORIDE 0.9% 500 ML 500 ML IV ONE (15:01)
--- NOTE | 2024-02-24 15:17 | P.OP ---
Date of Procedure: 02/24/24 Preoperative Diagnosis: acute cholecystitis Bacteremia Postoperative Diagnosis: severe acute cholecystitis Bacteremia Coagulopathy Procedure(s) Performed: laparoscopic cholecystectomy Anesthesia: CHETAN Surgeon: Wan Thorne Estimated Blood Loss (ml): 1,000 Pathology: other (gallbladder) Condition: stable Disposition: PACU Description of Procedure: the patient's placed on the operating table in the supine position. He was received general endotracheal tube anesthesia. His abdomen was prepped and draped in the usual sterile fashion. Patient appears midline scar. Using a 5 mm optical trocar under direct visualization the left upper quadrant was entered under direct vision. The abdomen was insufflated. After adequate insufflation the laparoscope placed back the peritoneal cavity. There were significant adhesions seen throughout the abdominal cavity mainly located along his midline scar. Due to the adhesions inside to convert the procedure to an open procedure. The trochars withdrawn. The skin was incised in the right upper quadrant subcostal area and using electrocautery the abdominal wall was divided. The patient appeared to be quite well padded. The previously significant bruising along his incision. The Bookwalter retractors placed a wound. The gallbladder was visualized. The gallbladder appeared grossly inflamed.the gallbladder is grasped with a pair of Rosario clamps. And then using electrocautery the gallbladder was taken down off the gallbladder wall ffossa in the liver. The cystic duct was identified. The cystic duct had a right angle clamp placed prostate. And then the cholestatic deformities a pair Metzenbaum scissors. And divided cystic duct. The cystic duct was then ligated with 2-0 Ethibond suture. The cystic artery was then divided the Harmonic scissors. There was significant oozing seen from the liver bed. The liver bed was packed and held pressure. Then using electrocautery the bed was reexamined. There was still significant oozing. At this point the liver bed had FloSeal and Surgicel pallor placed on the liver bed. This was done multiple times. The liver bed bleeding was finally stopped after approximately 45 minutes. The prostate 1000 mL of blood loss occurred during the procedure. Anesthesia had been called to the room at the gaining of the bleeding. Patient was taken screening and 2 units of blood was called for. The patient remained hstable to the procedure. Once all the liver bed oozing was controlled. A BRADLEY drains placed the gallbladder fossa and brought out through a lateral stab incision in the abdominal wall. The abdominal wall was closed loop #1 PDS suture in 2 layers. Skin was closed vikash. Patient was sent to the ICU in stable condition on the ventilator.
[2024-02-24 16:00] LABS: HCT 25.4 % (39.0-53.0); MCH 29.8 pg (25.0-35.0); MCHC 35.1 g/dL (31.0-37.0); Mean Platelet Volume 8.1; Platelet Count 173 k/uL (150-450); RBC 2.99 m/uL (4.30-5.90); WBC 12.5 k/uL (3.8-10.6)
[2024-02-24 16:01] LABS: HGB 8.9 gm/dL (13.0-17.5)
[2024-02-24 16:15] LABS: Glucose,Whole Blood 119 mg/dL (70-110)
[2024-02-24] MEDS: LORazepam 2 MG/ML INJ IV PRN (16:18)
[2024-02-24] MEDS: hydrALAZINE HCL 20 MG/ML 1 ML VIAL IVP PRN (16:24)
[2024-02-24] MEDS: METOPROLOL TARTRATE 5 MG/5 ML VIAL IVP PRN (16:34)
[2024-02-24 16:47] LABS: Appearance,Urine Cloudy (Clear); Bilirubin,Urine 1+ (Negative); Blood,Urine Negative (Negative); Color,Urine Dark Yellow; Glucose,Urine (UA) Negative (Negative); Ketones,Urine Trace (Negative); Leukocyte Esterase,Urine Moderate (Negative); Mucus,Urine Rare /hpf; Nitrite,Urine Negative (Negative); Protein,Urine Trace (Negative); RBC,Urine 2 /hpf (0-5); Specific Gravity,Urine 1.023 (1.001-1.035); Squamous Epithelial Cell,Urine 1 /hpf (0-4); WBC,Urine 17 /hpf (0-5)
[2024-02-24 16:50] LABS: ABG Base Excess -1.2 mmol/L; ABG HCO3 24 mmol/L (21-25); ABG Oxygen Saturation 100.5 % (94-97); ABG PCO2 40 mmHg (35-45); ABG PH 7.38 (7.35-7.45); ABG TCO2 25 mmol/L (19-24); Allen Test Performed? Yes
[2024-02-24 16:55] LABS: ABG PO2 >420 mmHg (83-108)
--- NOTE | 2024-02-24 17:17 | XR ---
EXAMINATION TYPE: XR chest 1V portable DATE OF EXAM: 02/24/2024 Comparison: 02/23/2024 Clinical History: 68-year-old male INTUBATED. Findings: Interval intubation. ET tube appears satisfactory. Limited by lordotic positioning. Heart appears bor derline in size. Bandlike atelectasis left midlung. No omar progressive consolidation. No sizable pl eural effusion. Impression: Satisfactory ET tube. Borderline heart size. Bandlike atelectasis left midlung.
[2024-02-24 17:18] LABS: Glucose,Whole Blood 162 mg/dL (70-110)
[2024-02-24] MEDS: LACTATED RINGERS 1,000 ML IV SCH ×2 (17:18→18:23)
[2024-02-24] MEDS: ONDANSETRON 4 MG/2 ML VIAL IVP ONE (17:18)
[2024-02-24] MEDS: LACTATED RINGERS 1,000 ML IV ONE ×2 (18:03→20:23)
[2024-02-24] MEDS: PIPERACILLIN-TAZOBACTAM 3.375 GM in SODIUM CHLORIDE 0.9% 100 ML IVPB SCH (18:06)
--- NOTE | 2024-02-24 19:24 | P.CNPUL ---
History of Present Illness Consult date: 02/24/24 Chief complaint: Acute cholecystitis History of present illness: This is a 68-year-old male patient who is currently intubated on mechanical vent ilator. The patient was taken to the operating room for acute cholecystitis and bacteremia. The patient was found to have severe acute cholecystitis and the patient was initially supposed to have a laparoscopic cholecystectomy and this was converted to an open procedure. The patient was found to have significant adhesions. The gallbladder was taken out. The patient encountered bleeding and estimated blood loss was in the order of 1000 cc. The patient accordingly was given a total of 1.5 L of crystalloid in the operating room, 1 unit of packed RBC, a total of 1000 cc of albumin. Output from the BRADLEY drain is minimal at this point in time. The patient is currently on propofol running at 15 mcg/kg/min. He is on assist-control mode of mechanical ventilation at a rate of 16, tidal volume of 400, FiO2 40% with a PEEP of 5. The blood pressure was soft in the ICU and the patient was given additional liter of lactated Ringer. Blood gas showed a pH of 7.38 with a pCO2 of 40 and pO2 of more than 420. FiO2 was dropped accordingly. Chest x-ray shows borderline heart size and some atel ectatic change in the left midlung. The patient's blood culture showing Enterococcus faecium and based on that the patient was kept on a combination of Zosyn and daptomycin. No pressors for now. Note that the patient is known to have previous history of CVA. He has insulin-dependent diabetes mellitus and hypertension hyperlipidemia and Lewy body dementia and Parkinson's disease. He has also history of obstructive sleep apnea. His gallbladder ultrasound that was done at the time of admission showed acute cholecystitis with distended gallbladder wall thickening and the CT of the chest that was done on 02/23/2024 showed no evidence of any pulmonary embolism. The lungs were essentially clear from any acute pulmonary filtration. Review of Systems ROS unobtainable: due to endotracheal tube Past Medical History Past Medical History: CVA/TIA, Diabetes Mellitus, Hypertension, Sleep Apnea/CPAP/BIPAP Additional Past Medical History / Comment(s): Parkinsons. diet controlled DM History of Any Multi-Drug Resistant Organisms: None Reported Past Surgical History: Hernia Repair Additional Past Surgical History / Comment(s): benign tumor removed lt lower jaw and artifical jaw inserted, cataract- bilat, sinus surgery, carpal tunnel surgery right wrist 1970' Past Anesthesia/Blood Transfusion Reactions: Motion Sickness Past Psychological History: Anxiety Smoking Status: Never smoker Past Alcohol Use History: None Reported Past Drug Use History: None Reported - Past Family History Father Family Medical History: Cancer, Diabetes Mellitus Mother Family Medical History: CVA/TIA Medications and Allergies Home Medications Medication Instructions Recorded Confirmed Type Aspirin EC [Ecotrin Low Dose] 81 mg PO DAILY@69901/09/22 02/23/24 History Meclizine HCl 25 mg PO HS@189901/09/22 02/23/24 History Vit C/E/Zn/Coppr/Lutein/Zeaxan 2 cap PO DAILY@69901/09/22 02/23/24 History [Preservision Areds 2 Softgel] Carbidopa-Levodopa 25-100 mg 1 tab PO TID@1100,1400,1700 09/29/23 02/23/24 History [Sinemet 25-100 mg] Escitalopram [Lexapro] 20 mg PO DAILY@69910/12/23 02/23/24 History Clopidogrel [Plavix] 75 mg PO DAILY@0710/25/23 02/23/24 History INSULIN ASPART (NovoLOG) [NovoLOG See Protocol SQ AC-BID@0700,1600 10/25/23 0 02/23/24 History (formulary)] Pantoprazole [Protonix] 40 mg PO DAILY@0710/25/23 02/23/24 History Acetaminophen Tab [Tylenol] 650 mg PO Q6HR PRN 02/23/24 02/23/24 History Donepezil [Aricept] 10 mg PO HS@189902/23/24 02/23/24 History Loratadine 10 mg PO HS@189902/23/24 02/23/24 History Midodrine HCl [ProAmantine] 2.5 mg PO Q8H PRN 02/23/24 02/23/24 History QUEtiapine [SEROquel] 25 mg PO DAILY@17002/23/24 02/23/24 History levETIRAcetam [Keppra] 500 mg PO BID@0700,1900 02/23/24 02/23/24 History Allergies Allergy/AdvReac Type Severity Reaction Status Date / Time cephalexin Allergy Itching Verified 02/24/24 12:26 cockroach Allergy Unknown Verified 02/24/24 12:26 cyclobenzaprine Allergy Chest Pain Verified 02/24/24 12:26 morphine AdvReac Hallucinati Verified 02/24/24 12:26 ons Physical Exam Vitals: Vital Signs Temp Pulse Pulse Resp BP BP Pulse Ox 02/24/24 19:00 94 19 100 02/24/24 18:50 98 19 97 02/24/24 18:40 96 19 100 02/24/24 18:30 93 19 100 02/24/24 18:20 93 18 100 02/24/24 18:10 93 26 H 100 02/24/24 18:08 02/24/24 18:00 95 19 100 02/24/24 17:50 95 20 99 02/24/24 17:40 96 22 100 02/24/24 17:30 98 22 100 02/24/24 17:20 101 H 21 100 02/24/24 17:18 02/24/24 17:14 02/24/24 17:10 100 02/24/24 17:09 98.3 F 94 19 100 02/24/24 16:40 85 16 144/57 100 02/24/24 16:20 90 16 177/69 100 02/24/24 16:05 80 16 193/77 100 02/24/24 15:57 02/24/24 15:53 97.9 F 80 186/74 100 02/24/24 15:50 82 16 186/76 100 02/24/24 15:35 80 16 159/82 100 02/24/24 12:03 99.0 F 76 16 143/82 99 02/24/24 07:00 98.4 F 70 16 108/64 98 02/24/24 00:33 98.4 F 74 18 111/67 96 FiO2 02/24/24 19:00 02/24/24 18:50 02/24/24 18:40 02/24/24 18:30 02/24/24 18:20 02/24/24 18:10 02/24/24 18:08 40 02/24/24 18:00 02/24/24 17:50 02/24/24 17:40 02/24/24 17:30 02/24/24 17:20 02/24/24 17:18 40 02/24/24 17:14 40 02/24/24 17:10 02/24/24 17:09 02/24/24 16:40 100 02/24/24 16:20 100 02/24/24 16:05 100 02/24/24 15:57 100 02/24/24 15:53 02/24/24 15:50 100 02/24/24 15:35 100 02/24/24 12:03 02/24/24 07:00 02/24/24 00:33 Intake and Output 02/24/24 02/24/24 02/24/24 06:59 14:59 22:59 Intake Total 700 2383.531 Output Total 1310 Balance 700 1073.531 Intake: IV 700 1725 Lactated Ringers 1,000 ml 125 @ 125 mls/hr IV .Q8H [facility] Rx#:[id number] Lactated Ringers 1,000 ml 1000 @ 999 mls/hr IV .Q1H1M [facility] Rx#:[id number] Piperacillin-Tazobactam 3 100 .375 gm In Sodium Chloride 0.9% 100 ml @ 25 mls/hr IVPB Q8HR [facility] Rx# :[id number] Intake, IV Titration 6.531 Amount propofoL 1,000 mg In 6.531 Empty Bag 1 bag @ 15 MCG/ KG/MIN 9.185 mls/hr IV . [id number] [facility] Rx#:[id number] Blood Product 652 Platelet Pheresis Pas 342 Psoralen Unit [id number] Rc As-1 Unit 310 [id number] Output: Urine 310 Estimated Blood Loss 1000 Other: Voiding Method Indwelling Catheter # Voids 0 Weight 102.058 kg ABP, PAP, CO, CI - Last 8 Hours Arterial Blood Pressure 118/50 Arterial Blood Pressure 126/60 Arterial Blood Pressure 122/48 Arterial Blood Pressure 124/47 Arterial Blood Pressure 117/46 Arterial Blood Pressure 110/44 Arterial Blood Pressure 99/42 Arterial Blood Pressure 97/42 Arterial Blood Pressure 102/44 Arterial Blood Pressure 104/44 Arterial Blood Pressure 107/44 Calm and comfortable on propofol, intubated on mechanical ventilator, suggest on mechanical ventilator for now. Orogastric and orotracheal tube are both in place. Head exam was generally normal. There was no scleral icterus or corneal arcus. Mucous membranes were moist. Neck was supple and without jugular venous distension, thyromegaly, or carotid bruits. Carotids were easily palpable bilaterally. There was no adenopathy. Lung sounds are diminished bilaterally otherwise clear. Cardiac exam revealed the PMI to be normally situated and sized. The rhythm was regular and no extrasystoles were noted during several minutes of auscultation. The first and second heart sounds were normal and physiologic splitting of the second heart sound was noted. There were no murmurs, rubs, clicks, or gallops. Abdominal exam revealed normal bowel sounds. The abdomen was soft, non-tender, and without masses, organomegaly, or appreciable enlargement of the abdominal aorta. Surgical wound over the right upper quadrant is dry clean and intact and the patient has a BRADLEY drain in place. Examination of the extremities revealed easily palpable radial, femoral and pedal pulses. There was no cyanosis, clubbing or edema. Examination of the skin revealed no evidence of significant rashes, suspicious appearing nevi or other concerning lesions. Neurologically the patient is sedated. Results - Laboratory Findings CBC and BMP: 02/24/24 15:49 02/24/24 06:58 ABG ABG pH 7.38 (7.35-7.45) 02/24/24 16:41 ABG pCO2 40 mmHg (35-45) 02/24/24 16:41 ABG pO2 >420 mmHg (83-108) H 02/24/24 16:41 ABG O2 Saturation 100.5 % (94-97) H 02/24/24 16:41 PT/INR, D-dimer PT 12.9 sec (10.0-12.5) H 02/22/24 23:38 INR 1.2 (<1.2) H 02/22/24 23:38 D-Dimer 1.93 mg/L FEU (<0.60) H 02/22/24 23:38 Abnormal lab findings: Abnormal Labs 02/22/24 02/22/24 02/22/24 23:38 23:38 23:38 WBC 14.7 H RBC Hgb Hct Neutrophils # 13.4 H Lymphocytes # 0.6 L PT 12.9 H INR 1.2 H D-Dimer 1.93 H ABG pO2 ABG Total CO2 ABG O2 Saturation Glucose 179 H POC Glucose (mg/dL) Total Bilirubin 2.2 H AST 224 H ALT Alkaline Phosphatase 233 H Total Protein Albumin HDL Cholesterol Urine Protein Urine Ketones Urine Bilirubin Ur Leukocyte Esterase Urine WBC Urine Mucus Crossmatch 02/23/24 02/23/24 02/23/24 06:09 11:39 11:47 WBC 12.5 H RBC Hgb Hct Neutrophils # Lymphocytes # PT INR D-Dimer ABG pO2 ABG Total CO2 ABG O2 Saturation Glucose POC Glucose (mg/dL) 152 H 132 H Total Bilirubin AST ALT Alkaline Phosphatase Total Protein Albumin HDL Cholesterol Urine Protein Urine Ketones Urine Bilirubin Ur Leukocyte Esterase Urine WBC Urine Mucus Crossmatch 02/23/24 02/23/24 02/24/24 11:47 17:59 00:26 WBC RBC Hgb Hct Neutrophils # Lymphocytes # PT INR D-Dimer ABG pO2 ABG Total CO2 ABG O2 Saturation Glucose 135 H POC Glucose (mg/dL) 113 H 116 H Total Bilirubin 4.1 H AST 458 H ALT 107 H Alkaline Phosphatase 248 H Total Protein 6.2 L Albumin 3.4 L HDL Cholesterol Urine Protein Urine Ketones Urine Bilirubin Ur Leukocyte Esterase Urine WBC Urine Mucus Crossmatch 02/24/24 02/24/24 02/24/24 05:52 06:58 06:58 WBC RBC Hgb 12.5 L Hct 38.3 L Neutrophils # Lymphocytes # 0.5 L PT INR D-Dimer ABG pO2 ABG Total CO2 ABG O2 Saturation Glucose 102 H POC Glucose (mg/dL) 112 H Total Bilirubin 4.5 H AST 184 H ALT Alkaline Phosphatase 224 H Total Protein 5.8 L Albumin 3.0 L HDL Cholesterol 25.50 L Urine Protein Urine Ketones Urine Bilirubin Ur Leukocyte Esterase Urine WBC Urine Mucus Crossmatch 02/24/24 02/24/24 02/24/24 14:14 14:14 15:24 WBC RBC 3.74 L Hgb 10.8 L Hct 31.9 L Neutrophils # Lymphocytes # PT INR D-Dimer ABG pO2 ABG Total CO2 ABG O2 Saturation Glucose POC Glucose (mg/dL) Total Bilirubin AST ALT Alkaline Phosphatase Total Protein Albumin HDL Cholesterol Urine Protein Trace H Urine Ketones Trace H Urine Bilirubin 1+ H Ur Leukocyte Esterase Moderate H Urine WBC 17 H Urine Mucus Rare H Crossmatch See Detail 02/24/24 02/24/24 02/24/24 15:49 16:13 16:41 WBC 12.5 H RBC 2.99 L Hgb 8.9 L D Hct 25.4 L Neutrophils # Lymphocytes # PT INR D-Dimer ABG pO2 >420 H ABG Total CO2 25 H ABG O2 Saturation 100.5 H Glucose POC Glucose (mg/dL) 119 H Total Bilirubin AST ALT Alkaline Phosphatase Total Protein Albumin HDL Cholesterol Urine Protein Urine Ketones Urine Bilirubin Ur Leukocyte Esterase Urine WBC Urine Mucus Crossmatch 02/24/24 17:16 WBC RBC Hgb Hct Neutrophils # Lymphocytes # PT INR D-Dimer ABG pO2 ABG Total CO2 ABG O2 Saturation Glucose POC Glucose (mg/dL) 162 H Total Bilirubin AST ALT Alkaline Phosphatase Total Protein Albumin HDL Cholesterol Urine Protein Urine Ketones Urine Bilirubin Ur Leukocyte Esterase Urine WBC Urine Mucus Crossmatch - Diagnostic Findings Chest x-ray: image reviewed Assessment and Plan Plan: Acute cholecystitis and the patient underwent an open cholecystectomy. The patient is currently postop day #0. Significant blood loss intraoperatively and the patient was sedated with fluids, colloids/albumin and received a unit of packed RBC. The patient currently is on no pressors Acute enterococcal septicemia secondary to cholecystitis and the patient is currently on a combination of daptomycin and Zosyn. The patient has Enterococcus faecium in the blood cultures, likely VRE Acute respiratory failure post Gallbladder Surgery. Patient Was kept intubated for surgery due to ongoing comorbidities and hemodynamic instability and blood loss. Oxygenation is stable for now Previous history of CVA History of hypertension Hyperlipidemia Lewy body dementia with Parkinson disease at baseline Plan Continue vent support and wean down FiO2 as tolerated Keep propofol for now Continue IV fluids and the patient is currently on lactated Ringer at rate of 125 cc an hour Continue Zosyn and daptomycin for now Monitor the blood pressure utilize Levophed as needed Monitor the output from the BRADLEY drain Stop antihypertensive medications IV Protonix Lovenox for DVT prophylaxis Will keep the patient intubated overnight and will reevaluate in a.m. Condition is critical post open cholecystectomy. Time with Patient: Greater than 30
[2024-02-24] MEDS: HYDROmorphone 1 MG/ML 1 ML SYRINGE IVP PRN (21:01)
[2024-02-24] MEDS: LORATADINE 10 MG TAB PO SCH (21:09)
[2024-02-24] MEDS: levETIRAcetam 500 MG TAB PO SCH (21:10)
[2024-02-24] MEDS: DONEPEZIL 10 MG TAB PO SCH (21:10)
[2024-02-24] MEDS: MECLIZINE 25 MG TAB PO SCH (21:10)
[2024-02-24] MEDS: CHLORHEXIDINE GLUCONATE 15 ML CUP MUCOUS MEM SCH (21:10)
[2024-02-24] MEDS: NOREPINEPHRINE 4 MG in SODIUM CHLORIDE 0.9% 250 ML IV SCH (22:00)
--- NOTE | 2024-02-24 22:54 | P.CONS ---
History of Present Illness - Reason for Consult Consult date: 02/24/24 VRE bacteremia Requesting physician: Virgilio Coello - Chief Complaint Chest pain shortness of breath x few days - History of Present Illness Patient is a 68-year-old male with a past medical history significant for diabetes mellitus hypertension sleep apnea CVA TIA Parkinson disease patient was brought into the hospital 2 days ago on 02/22/2024 for evaluation of sharp chest pain however the pain was bilateral lower chest with associated shortness of breath patient has been evaluated by cardiology and pulmonary services did have a CT angiogram of the chest no PE did not mention any pneumonia he did have a gallbladder ultrasound yesterday that was suggestive of acute cholecystitis for which general surgery was consulted, patient did have elevated white count o n admission and low-grade fever of 99.8 F is being treated with Zosyn blood cultures came back positive with VRE Zosyn was discontinued patient was started on daptomycin infectious disease was consulted for further management of antibiotic the patient has been taken to the OR and the patient was noticed to have severe acute cholecystitis status post laparoscopic cholecystectomy postsurgery the patient has been admitted to ICU on the ventilator patient is hemodynamically stable at the time of evaluation in the ICU not requiring any pressor support patient is sedated cannot provide any history no family members at the bedside so most information has been obtained from review of the chart and talking to nursing staff Review of Systems Positive points has been mentioned in HPI complete review could not be obtained because patient intubated on the vent Past Medical History Past Medical History: CVA/TIA, Diabetes Mellitus, Hypertension, Sleep Apnea/CPAP/BIPAP Additional Past Medical History / Comment(s): Parkinsons. diet controlled DM History of Any Multi-Drug Resistant Organisms: None Reported Past Surgical History: Hernia Repair Additional Past Surgical History / Comment(s): benign tumor removed lt lower jaw and artifical jaw inserted, cataract- bilat, sinus surgery, carpal tunnel surgery right wrist 1969' Past Anesthesia/Blood Transfusion Reactions: Motion Sickness Past Psychological History: Anxiety Smoking Status: Never smoker Past Alcohol Use History: None Reported Past Drug Use History: None Reported - Past Family History Father Family Medical History: Cancer, Diabetes Mellitus Mother Family Medical History: CVA/TIA Medications and Allergies Home Medications Medication Instructions Recorded Confirmed Type Aspirin EC [Ecotrin Low Dose] 81 mg PO DAILY@0700 01/09/22 02/23/24 History Meclizine HCl 25 mg PO HS@1900 01/09/22 02/23/24 History Vit C/E/Zn/Coppr/Lutein/Zeaxan 2 cap PO DAILY@0700 01/09/22 02/23/24 History [Preservision Areds 2 Softgel] Carbidopa-Levodopa 25-100 mg 1 tab PO TID@1100,1400,1700 09/29/23 02/23/24 His tory [Sinemet 25-100 mg] Escitalopram [Lexapro] 20 mg PO DAILY@0710/12/23 02/23/24 History Clopidogrel [Plavix] 75 mg PO DAILY@0700 10/25/23 02/23/24 History INSULIN ASPART (NovoLOG) [NovoLOG See Protocol SQ AC-BID@0700,1600 10/25/23 02/23/24 History (formulary)] Pantoprazole [Protonix] 40 mg PO DAILY@0700 10/25/23 02/23/24 History Acetaminophen Tab [Tylenol] 650 mg PO Q6HR PRN 02/23/24 02/23/24 History Donepezil [Aricept] 10 mg PO HS@1900 02/23/24 02/23/24 History Loratadine 10 mg PO HS@1900 02/23/24 02/23/24 History Midodrine HCl [ProAmantine] 2.5 mg PO Q8H PRN 02/23/24 02/23/24 History QUEtiapine [SEROquel] 25 mg PO DAILY@1700 02/23/24 02/23/24 History levETIRAcetam [Keppra] 500 mg PO BID@0700,1900 02/23/24 02/23/24 History Allergies Allergy/AdvReac Type Severity Reaction Status Date / Time cephalexin Allergy Itching Verified 02/24/24 12:26 cockroach Allergy Unknown Verified 02/24/24 12:26 cyclobenzaprine Allergy Chest Pain Verified 02/24/24 12:26 morphine AdvReac Hallucinati Verified 02/24/24 12:26 ons Physical Exam Vitals: Vital Signs Temp Pulse Pulse Resp BP BP Pulse Ox 02/24/24 12:03 99.0 F 76 16 143/82 99 02/24/24 07:00 98.4 F 70 16 108/64 98 02/24/24 00:33 98.4 F 74 18 111/67 96 02/23/24 19:08 98.8 F 70 17 112/65 95 02/23/24 17:15 99.8 F H 79 18 122/69 98 02/23/24 16:18 79 16 99/64 97 02/23/24 15:00 75 17 107/62 97 Intake and Output 02/23/24 02/24/24 02/24/24 22:59 06:59 14:59 Other: Voiding Method Incontinent # Voids 1 0 Weight 102.058 kg GENERAL DESCRIPTION: Elderly male intubated on the vent HEENT: Shows Pallor , no scleral icterus. Oral mucous membrane is dry. NECK: Trachea central, no thyromegaly. LUNGS: Unlabored breathing. Decreased breath sounds at the base HEART: S1, S2, regular rate and rhythm. No loud murmur ABDOMEN: Soft, no tenderness , EXTREMITIES: No edema of feet. SKIN: No rash, no masses palpable. NEUROLOGICAL: The patient is sedated on the vent Results CBC & Chem 7: 02/24/24 15:49 02/24/24 06:58 Labs: Abnormal Lab Results - Last 24 Hours (Table) 02/23/24 02/23/24 02/24/24 Range/Units 11:47 17:59 00:26 Hgb (13.0-17.5) gm/dL Hct (39.0-53.0) % Lymphocytes # (1.0-4.8) k/uL Glucose (74-99) mg/dL POC Glucose (mg/dL) 113 H 116 H (70-110) mg/dL Total Bilirubin (0.2-1.3) mg/dL AST 458 H (17-59) U/L Alkaline Phosphatase (38-126) U/L Total Protein (6.3-8.2) g/dL Albumin (3.5-5.0) g/dL HDL Cholesterol (40.00-60.00) mg/dL 02/24/24 02/24/24 02/24/24 Range/Units 05:52 06:58 06:58 Hgb 12.5 L (13.0-17.5) gm/dL Hct 38.3 L (39.0-53.0) % Lymphocytes # 0.5 L (1.0-4.8) k/uL Glucose 102 H (74-99) mg/dL POC Glucose (mg/dL) 112 H (70-110) mg/dL Total Bilirubin 4.5 H (0.2-1.3) mg/dL AST 184 H (17-59) U/L Alkaline Phosphatase 224 H (38-126) U/L Total Protein 5.8 L (6.3-8.2) g/dL Albumin 3.0 L (3.5-5.0) g/dL HDL Cholesterol 25.50 L (40.00-60.00) mg/dL Microbiology - Last 24 Hours (Table) 02/23/24 12:10 Blood Culture Gram Stain - Preliminary Blood Blood Culture - Preliminary Molecular ID Assessment and Plan (1) Sepsis Current Visit: Yes Status: Acute Code(s): A41.9 - SEPSIS, UNSPECIFIED ORG ANISM SNOMED Code(s): 98501824 (2) Cholecystitis Current Visit: Yes Status: Acute Code(s): K81.9 - CHOLECYSTITIS, UNSPECIFIED SNOMED Code(s): 09655454 (3) VRE bacteremia Current Visit: Yes Status: Acute Code(s): R78.81 - BACTEREMIA; B95.2 - ENTEROCOCCUS THE CAUSE OF DISEASES CLASSIFIED ELSEWHERE; Z16.21 - RESISTANCE TO VANCOMYCIN SNOMED Code(s): 7965798717 (4) Allergy to cephalosporin Current Visit: Yes Status: Acute Code(s): Z88.1 - ALLERGY STATUS TO OTHER ANTIBIOTIC AGENTS SNOMED Code(s): 370710885 Plan: 1patient presented hospital with sepsis in this patient who did have fever elevated white count source is acute cholecystitis usually associated with a gr am-negative bacteria and also secondary to Enterococcus 2-VRE bacteremia source could be acute gastritis 3-blood culture has been repeated document clearance of bacteremia 4-cephalexin allergy however the patient tolerated Zosyn during this admission but no bowel 5-continue with the daptomycin however we will also restart his Zosyn to cover for the other culture may be associated with this episode of cholecystitis We will follow on clinical condition and cultures to further adjust medication if needed Thank you for this consultation we will follow the patient along with you Dictation was produced using [employer] dictation software. please excuse any grammatical, word or spelling errors. Time with Patient: Greater than 30
[2024-02-24 23:44] LABS: Glucose,Whole Blood 170 mg/dL (70-110)
[2024-02-25 01:48] LABS: Basophils % (A) 0 %; Eosinophils % (A) 0 %; HCT 30.3 % (39.0-53.0); HGB 9.9 gm/dL (13.0-17.5); Lymphocytes # (A) 0.5 k/uL (1.0-4.8); Lymphocytes % (A) 4 %; MCH 28.5 pg (25.0-35.0); MCHC 32.6 g/dL (31.0-37.0); MCV 87.4 fL (80.0-100.0); Mean Platelet Volume 7.9; Monocytes # (A) 0.5 k/uL (0-1.0); Monocytes % (A) 5 %; Neutrophils # (A) 9.9 k/uL (1.3-7.7); Neutrophils % (A) 90 %; Platelet Count 177 k/uL (150-450); RBC 3.47 m/uL (4.30-5.90); RDW 13.9 % (11.5-15.5)
[2024-02-25 04:06] LABS: Glucose,Whole Blood 170 mg/dL (70-110)
[2024-02-25 04:20] LABS: HCT 30.4 % (39.0-53.0); HGB 9.8 gm/dL (13.0-17.5); MCH 27.9 pg (25.0-35.0); MCHC 32.2 g/dL (31.0-37.0); MCV 86.6 fL (80.0-100.0); Mean Platelet Volume 8.1; Platelet Count 201 k/uL (150-450); RBC 3.51 m/uL (4.30-5.90); RDW 14.2 % (11.5-15.5); WBC 12.2 k/uL (3.8-10.6)
[2024-02-25 04:33] LABS: ALT 139 U/L (4-49); AST 196 U/L (17-59); African American GFR (CKD) >90 (>60 ml/min/1.73 sqM); Albumin 2.7 g/dL (3.5-5.0); Alkaline Phosphatase 115 U/L (38-126); Anion Gap 5 mmol/L; Blood Urea Nitrogen 22 mg/dL (9-20); Calcium 7.7 mg/dL (8.4-10.2); Carbon Dioxide 23 mmol/L (22-30); Chloride 108 mmol/L (98-107); Glucose 154 mg/dL (74-99); Magnesium 1.5 mg/dL (1.6-2.3); Non-African American GFR(CKD) 85 (>60 ml/min/1.73 sqM); Potassium 4.1 mmol/L (3.5-5.1); Sodium 136 mmol/L (137-145); Total Bilirubin 4.3 mg/dL (0.2-1.3); Total Protein 4.8 g/dL (6.3-8.2)
[2024-02-25] MEDS ORDERED: Magnesium Replacement Protocol 1 EACH MISC MISCELLANE PRN (04:42)
[2024-02-25] MEDS: MAGNESIUM SULFATE-D5W PMX 1 GM in DEXTROSE/WATER 1 100ML.BAG IVPB SCH (04:50)
[2024-02-25 05:53] LABS: ABG Base Excess 1.4 mmol/L; ABG HCO3 26 mmol/L (21-25); ABG Oxygen Saturation 99.9 % (94-97); ABG PCO2 42 mmHg (35-45); ABG PH 7.41 (7.35-7.45); ABG PO2 155 mmHg (83-108); ABG TCO2 28 mmol/L (19-24); Allen Test Performed? Yes
--- NOTE | 2024-02-25 07:52 | XR ---
EXAMINATION TYPE: XR chest 1V portable DATE OF EXAM: 02/25/2024 5:39 AM CLINICAL INDICATION:Male, 68 years old with history of Tube placement; [facility] COMPARISON: Chest radiograph from one day prior. TECHNIQUE: XR chest 1V portable Frontal view of the chest. FINDINGS: Lungs/Pleura: Low lung volumes are present. There is no evidence of pleural effusion, focal consolida tion, or pneumothorax. Pulmonary vascularity: Unremarkable. Heart/mediastinum: Cardiomediastinal silhouette is unremarkable. Musculoskeletal: No acute osseous pathology. Other findings: Abdominal surgical clips with Adam-Singh drain in the right upper quadrant. Lines/Tubes: Endotracheal tube with distal tip 5.3 cm above the stephen. Nasogastric tube with its distal tip and side-port projecting under the diaphragm. IMPRESSION: Stable support tubes.
[2024-02-25] MEDS: DAPTOmycin 500 MG in SODIUM CHLORIDE 0.9% 50 ML IVPB SCH (09:50)
[2024-02-25 11:42] LABS: Glucose,Whole Blood 139 mg/dL (70-110)
--- NOTE | 2024-02-25 13:13 | P.PN ---
Subjective Progress Note Date: 02/25/24 Hospital Course: Patient is a very pleasant 68-year-old male with a past medical history of hyp ertension, hyperlipidemia, CVA, insulin-dependent diabetes mellitus, Lewy body dementia, Parkinson's disease, and obstructive sleep apnea. He presented to the emergency department 02/22/2024 with a chief complaint of chest pain. Altered facility, patient evaluation emergency department. Vital signs upon arrival show blood pressure 138/79, heart rate 90, respiratory rate 19, temperature 98.4 F, and SpO2 98% on room air. EKG showing normal sinus rhythm at 91 bpm with right bundle branch block. Chest x-ray completed negative for acute cardiopulmonary process. Labs completed and reviewed. CBC showing leukocytosis with WBC count of 14.7 otherwise normal findings. Coagulation profile showing elevated PT of 12.9, INR of 1.2, and D-dimer of 1.93. BMP unremarkable with exception of mild hyperglycemia with glucose of 179. Liver profile showing hyperbilirubinemia with elevated transaminases with total bili of 2.2, AST of 224, and alkaline phosphatase of 233. Troponin was negative at less than 0.012. CTA chest completed negative for PE. Patient was admitted under our services with consultation to cardiology. Gallbladder ultrasound was ordered and results reviewed. Radiologist reporting findings concerning for acute cholecystitis with distended gallbladder, wall thickening with pericholecystic fluid and tumefactive sludge. Consult placed to general surgeon. Patient underwent cholecystectomy. Procedure complicated by significant blood loss. Patient was subsequently moved to medical ICU for further recovery. Blood cultures 1 out of 2 growing Enterococcus, likely VRE. ID also following. Patient currently in medical ICU. Subjective: Seen and examined at bedside. No acute events overnight. Currently intubated and sedated. Plan for weaning sedation, and spontaneous breathing trial, and possible extubation. No longer requiring any pressors. Adequate urine output. No further bleeding Pertinent positives and negatives as discussed above, a complete review of systems was performed and all other systems are negative. Vitals Signs Reviewed. General: Intubated sedated Derm: Warm, dry Head: Atraumatic, normocephalic, symmetric Eyes: Anicteric sclera Mouth: No lip lesion, mucus membranes moist Cardiovascular: S1S2 reg, no murmur Lungs: CTA bilateral, no rhonchi, no rales, no accessory muscle use, intubated Abdominal: Soft, abdominal binder in place, BRADLEY drain in place Ext: No gross muscle atrophy, no edema, no contractures Neuro: Sedated Psych: Unable to assess Data Reviewed Today: Pertinent Labs: WBC 12.2, hemoglobin 9.8, sodium 136, bicarb 23, creatinine 0.91, glucose range between 1 39-1 70, magnesium 1.5, total bili 4.3, AST 186, ALT 139, ALP 115 Imaging: Chest x-ray independently interpreted, shows underinflated lungs, NG tube in place ET tube in place, no opacities Assessment and Plan: Active: Acute cholecystitis status postcholecystectomy VRE bacteremia Leukocytosis, reactive Acute blood loss anemia, intraoperatively status post 2 units of PRBCs, and 1 unit of platelets Hemorrhagic shock, resolved Ventilator dependent respiratory failure Transaminitis Hypomagnesemia -Hemoglobin stable -ID following, patient currently on IV daptomycin 500 mg every 24 hours, IV Zosyn 3.375 g every 8 hours -Pulmonology note reviewed, manage any mechanical ventilation -Plan to wean off of sedation, possible spontaneous breathing trial with ext ubation -No longer requiring any pressors -Surgery following -Plavix on hold, continued on aspirin -Magnesium replacement -Continue oral lactated Ringer at 125 cc an hour Insulin-dependent diabetes -Sliding scale insulin, every 6 hours, monitor for hypoglycemia Chronic: Lewy body dementia, Parkinson's disease Depression History of CVA History of hypertension Dyslipidemia RONNELL DVT ppx: Lovenox Code status: Full code Anticipated discharge place: Pending clinical course Anticipated discharge time: Pending clinical course Objective - Vital Signs Vital signs: Vital Signs Temp 98 F 02/25/24 12:00 Pulse 78 02/25/24 13:00 Resp 28 H 02/25/24 13:00 BP 117/55 02/24/24 23:25 Pulse Ox 98 02/25/24 13:00 FiO2 30 02/25/24 12:13 Intake & Output 02/24/24 02/25/24 02/25/24 18:59 06:59 18:59 Intake Total 2952 3150.434 1173.381 Output Total 1250 810 230 Balance 1702 2340.434 943.381 Weight 88 kg Intake: IV 2300 2633 8[address] [place] 33 21 Lactated Ringers 1,000 ml 1500 875 @ 125 mls/hr IV .Q8H [facility] Rx#:[id number] Lactated Ringers 1,000 ml 1000 1000 @ 999 mls/hr IV .Q1H1M [facility] Rx#:[id number] Piperacillin-Tazobactam 3 100 100 .375 gm In Sodium Chloride 0.9% 100 ml @ 25 mls/hr IVPB Q8HR [facility] Rx# :[id number] Intake, IV Titration 207.434 207.381 Amount DAPTOmycin 500 mg In 50 Sodium Chloride 0.9% 50 ml @ 100 mls/hr IVPB Q24HR [facility] Rx#:[id number] Norepinephrine 4 mg In 62.665 1.555 Sodium Chloride 0.9% 250 ml @ 0.03 MCG/KG/MIN 11. 665 mls/hr IV .[id number] [facility] Rx#:[id number] Piperacillin-Tazobactam 3 100 .375 gm In Sodium Chloride 0.9% 100 ml @ 25 mls/hr IVPB Q8HR [facility] Rx# :[id number] propofoL 1,000 mg In 144.769 55.826 Empty Bag 1 bag @ 15 MCG/ KG/MIN 9.185 mls/hr IV . [id number] [facility] Rx#:[id number] Blood Product 652 310 Platelet Pheresis Pas 342 Psoralen Unit [id number] Rc As-1 Unit 310 [id number] Rc As-1 Unit 310 [id number] Other 70 Output: Gastric Drainage 210 Drainage 65 Right Abdomen 65 Urine 250 535 230 Estimated Blood Loss 1000 Other: Voiding Method Indwelling Catheter Indwelling Catheter Indwelling Catheter ABP, PAP, CO, CI - Last Documented Arterial Blood Pressure 110/46 - Labs CBC & Chem 7: 02/25/24 04:05 02/25/24 04:05 Labs: Abnormal Lab Results - Last 24 Hours (Table) 02/24/24 02/24/24 02/24/24 Range/Units 14:14 14:14 15:24 WBC (3.8-10.6) k/uL RBC 3.74 L (4.30-5.90) m/uL Hgb 10.8 L (13.0-17.5) gm/dL Hct 31.9 L (39.0-53.0) % Neutrophils # (1.3-7.7) k/uL Lymphocytes # (1.0-4.8) k/uL ABG pO2 (83-108) mmHg ABG HCO3 (21-25) mmol/L ABG Total CO2 (19-24) mmol/L ABG O2 Saturation (94-97) % Sodium (137-145) mmol/L Chloride (98-107) mmol/L BUN (9-20) mg/dL Glucose (74-99) mg/dL POC Glucose (mg/dL) (70-110) mg/dL Calcium (8.4-10.2) mg/dL Magnesium (1.6-2.3) mg/dL Total Bilirubin (0.2-1.3) mg/dL AST (17-59) U/L ALT (4-49) U/L Total Protein (6.3-8.2) g/dL Albumin (3.5-5.0) g/dL Urine Protein Trace H (Negative) Urine Ketones Trace H (Negative) Urine Bilirubin 1+ H (Negative) Ur Leukocyte Esterase Moderate H (Negative) Urine WBC 17 H (0-5) /hpf Urine Mucus Rare H (None) /hpf Crossmatch See Detail 02/24/24 02/24/24 02/24/24 Range/Units 15:49 16:13 16:41 WBC 12.5 H (3.8-10.6) k/uL RBC 2.99 L (4.30-5.90) m/uL Hgb 8.9 L D (13.0-17.5) gm/dL Hct 25.4 L (39.0-53.0) % Neutrophils # (1.3-7.7) k/uL Lymphocytes # (1.0-4.8) k/uL ABG pO2 >420 H (83-108) mmHg ABG HCO3 (21-25) mmol/L ABG Total CO2 25 H (19-24) mmol/L ABG O2 Saturation 100.5 H (94-97) % Sodium (137-145) mmol/L Chloride (98-107) mmol/L BUN (9-20) mg/dL Glucose (74-99) mg/dL POC Glucose (mg/dL) 119 H (70-110) mg/dL Calcium (8.4-10.2) mg/dL Magnesium (1.6-2.3) mg/dL Total Bilirubin (0.2-1.3) mg/dL AST (17-59) U/L ALT (4-49) U/L Total Protein (6.3-8.2) g/dL Albumin (3.5-5.0) g/dL Urine Protein (Negative) Urine Ketones (Negative) Urine Bilirubin (Negative) Ur Leukocyte Esterase (Negative) Urine WBC (0-5) /hpf Urine Mucus (None) /hpf Crossmatch 02/24/24 02/24/24 02/25/24 Range/Units 17:16 23:42 01:20 WBC 11.0 H (3.8-10.6) k/uL RBC 3.47 L (4.30-5.90) m/uL Hgb 9.9 L (13.0-17.5) gm/dL Hct 30.3 L (39.0-53.0) % Neutrophils # 9.9 H (1.3-7.7) k/uL Lymphocytes # 0.5 L (1.0-4.8) k/uL ABG pO2 (83-108) mmHg ABG HCO3 (21-25) mmol/L ABG Total CO2 (19-24) mmol/L ABG O2 Saturation (94-97) % Sodium (137-145) mmol/L Chloride (98-107) mmol/L BUN (9-20) mg/dL Glucose (74-99) mg/dL POC Glucose (mg/dL) 162 H 170 H (70-110) mg/dL Calcium (8.4-10.2) mg/dL Magnesium (1.6-2.3) mg/dL Total Bilirubin (0.2-1.3) mg/dL AST (17-59) U/L ALT (4-49) U/L Total Protein (6.3-8.2) g/dL Albumin (3.5-5.0) g/dL Urine Protein (Negative) Urine Ketones (Negative) Urine Bilirubin (Negative) Ur Leukocyte Esterase (Negative) Urine WBC (0-5) /hpf Urine Mucus (None) /hpf Crossmatch 02/25/24 02/25/24 02/25/24 Range/Units 04:04 04:05 04:05 WBC 12.2 H (3.8-10.6) k/uL RBC 3.51 L (4.30-5.90) m/uL Hgb 9.8 L (13.0-17.5) gm/dL Hct 30.4 L (39.0-53.0) % Neutrophils # (1.3-7.7) k/uL Lymphocytes # (1.0-4.8) k/uL ABG pO2 (83-108) mmHg ABG HCO3 (21-25) mmol/L ABG Total CO2 (19-24) mmol/L ABG O2 Saturation (94-97) % Sodium 136 L (137-145) mmol/L Chloride 108 H (98-107) mmol/L BUN 22 H (9-20) mg/dL Glucose 154 H (74-99) mg/dL POC Glucose (mg/dL) 170 H (70-110) mg/dL Calcium 7.7 L (8.4-10.2) mg/dL Magnesium 1.5 L (1.6-2.3) mg/dL Total Bilirubin 4.3 H (0.2-1.3) mg/dL AST 196 H (17-59) U/L ALT 139 H (4-49) U/L Total Protein 4.8 L (6.3-8.2) g/dL Albumin 2.7 L (3.5-5.0) g/dL Urine Protein (Negative) Urine Ketones (Negative) Urine Bilirubin (Negative) Ur Leukocyte Esterase (Negative) Urine WBC (0-5) /hpf Urine Mucus (None) /hpf Crossmatch 02/25/24 02/25/24 Range/Units 05:49 11:40 WBC (3.8-10.6) k/uL RBC (4.30-5.90) m/uL Hgb (13.0-17.5) gm/dL Hct (39.0-53.0) % Neutrophils # (1.3-7.7) k/uL Lymphocytes # (1.0-4.8) k/uL ABG pO2 155 H (83-108) mmHg ABG HCO3 26 H (21-25) mmol/L ABG Total CO2 28 H (19-24) mmol/L ABG O2 Saturation 99.9 H (94-97) % Sodium (137-145) mmol/L Chloride (98-107) mmol/L BUN (9-20) mg/dL Glucose (74-99) mg/dL POC Glucose (mg/dL) 139 H (70-110) mg/dL Calcium (8.4-10.2) mg/dL Magnesium (1.6-2.3) mg/dL Total Bilirubin (0.2-1.3) mg/dL AST (17-59) U/L ALT (4-49) U/L Total Protein (6.3-8.2) g/dL Albumin (3.5-5.0) g/dL Urine Protein (Negative) Urine Ketones (Negative) Urine Bilirubin (Negative) Ur Leukocyte Esterase (Negative) Urine WBC (0-5) /hpf Urine Mucus (None) /hpf Crossmatch Microbiology - Last 24 Hours (Table) 02/23/24 12:10 Blood Culture Gram Stain - Preliminary Blood Blood Culture - Preliminary Enterococcus faecium Molecular ID 02/23/24 11:40 Blood Culture - Preliminary Blood
--- NOTE | 2024-02-25 13:22 | P.PN ---
Subjective Progress Note Date: 02/25/24 This is a 68-year-old male patient who is currently intubated on mechanical ventilator. The patient was taken to the operating room for acute cholecystitis and bacteremia. The patient was found to have severe acute cholecystitis and the patient was initially supposed to have a laparoscopic cholecystectomy and this was converted to an open procedure. The patient was found to have significant adhesions. The gallbladder was taken out. The patient encountered bleeding and estimated blood loss was in the order of 1000 cc. The patient accordingly was given a total of 1.5 L of crystalloid in the operating room, 1 unit of packed RBC, a total of 1000 cc of albumin. Output from the BRADLEY drain is minimal at this point in time. The patient is currently on propofol running at 15 mcg/kg/min. He is on assist-control mode of mechanical ventilation at a rate of 16, tidal volume of 400, FiO2 40% with a PEEP of 5. The blood pressure was soft in the ICU and the patient was given additional liter of lactated Ringer. Blood gas showed a pH of 7.38 with a pCO2 of 40 and pO2 of more than 420. FiO2 was dropped accordingly. Chest x-ray shows borderline heart size and some atelectatic change in the left midlung. The patient's blood culture showing Enterococcus faecium and based on that the patient was kept on a combination of Zosyn and daptomycin. No pressors for now. Note that the patient is known to have previous history of CVA. He has insulin-dependent diabetes mellitus and hypertension hyperlipidemia and Lewy body dementia and Parkinson's disease. He has also history of obstructive sleep apnea. His gallbladder ultrasound that was done at the time of admission showed acute cholecystitis with distended gallbladder wall thickening and the CT of the chest that was done on 02/23/2024 showed no evidence of any pulmonary embolism. The lungs were essentially clear from any acute pulmonary filtration. On 02/25/2024, the patient remains intubated on the mechanical ventilator. No significant events overnight. The patient is postop day #1 following an open cholecystectomy. Output from the BRADLEY drain is minimal at this point in time. The patient is currently on propofol which is running at 20 mcg/kg/min. He remains on assist-control mode of mechanical ventilation at rate of 60, tidal volume of 450, FiO2 of 30% with a PEEP of 5. Blood gas showed a pH of 7.41 with a pCO2 of 42 and pO2 of 155. The patient was given a total of 2 units of packed RBC postop. He was also given a unit of platelets. No active bleeding. Remains on lactated Ringer at rate of 125 cc an hour. Remains NPO. No pressors for now and the norepinephrine has been discontinued. The white cell count of 12.2 with a hemoglobin 9.8 and a platelet count of 201. BUN is 22 with a creatinine 0.9 and his sodium level is 136. AST is 196, ALT is 139 with an alkaline phosphatase of 115. Cultures positive for Enterococcus faecium and the patient remains on a combination of Zosyn and daptomycin. Afebrile. H emodynamically stable at this point in time. Objective - Vital Signs Vital signs: Vital Signs Temp 98.4 F 02/25/24 08:00 Pulse 66 02/25/24 09:00 Resp 16 02/25/24 09:00 BP 117/55 02/24/24 23:25 Pulse Ox 100 02/25/24 09:00 FiO2 30 02/25/24 08:02 Intake & Output 02/24/24 02/25/24 02/25/24 18:59 06:59 18:59 Intake Total 2952 3150.434 257.555 Output Total 1250 810 90 Balance 1702 2340.434 167.555 Weight 88 kg Intake: IV 2300 2633 256 [place] 33 6 Lactated Ringers 1,000 ml 1500 250 @ 125 mls/hr IV .Q8H [facility] Rx#:[id number] Lactated Ringers 1,000 ml 1000 1000 @ 999 mls/hr IV .Q1H1M [facility] Rx#:[id number] Piperacillin-Tazobactam 3 100 100 .375 gm In Sodium Chloride 0.9% 100 ml @ 25 mls/hr IVPB Q8HR [facility] Rx# :[id number] Intake, IV Titration 207.434 1.555 Amount Norepinephrine 4 mg In 62.665 1.555 Sodium Chloride 0.9% 250 ml @ 0.03 MCG/KG/MIN 11. 665 mls/hr IV .[id number] [facility] Rx#:[id number] propofoL 1,000 mg In 144.769 Empty Bag 1 bag @ 15 MCG/ KG/MIN 9.185 mls/hr IV . [id number] [facility] Rx#:[id number] Blood Product 652 310 Platelet Pheresis Pas 342 Psoralen Unit [id number] Rc As-1 Unit 310 [id number] Rc As-1 Unit 310 [id number] Output: Gastric Drainage 210 Drainage 65 Right Abdomen 65 Urine 250 535 90 Estimated Blood Loss 1000 Other: Voiding Method Indwelling Catheter Indwelling Catheter Indwelling Catheter ABP, PAP, CO, CI - Last Documented Arterial Blood Pressure 95/46 - Exam Calm and comfortable on propofol, intubated on mechanical ventilator, suggest on mechanical ventilator for now. Orogastric and orotracheal tube are both in place. Head exam was generally normal. There was no scleral icterus or corneal arcus. Mucous membranes were moist. Neck was supple and without jugular venous distension, thyromegaly, or carotid bruits. Carotids were easily palpable bilaterally. There was no adenopathy. Lung sounds are diminished bilaterally otherwise clear. Cardiac exam revealed the PMI to be normally situated and sized. The rhythm was regular and no extrasystoles were noted during several minutes of auscultation. The first and second heart sounds were normal and physiologic splitting of the second heart sound was noted. There were no murmurs, rubs, clicks, or gallops. Abdominal exam revealed normal bowel sounds. The abdomen was soft, non-tender, and without masses, organomegaly, or appreciable enlargement of the abdominal aorta. Surgical wound over the right upper quadrant is dry clean and intact and the patient has a BRADLEY drain in place. Examination of the extremities revealed easily palpable radial, femoral and pedal pulses. There was no cyanosis, clubbing or edema. Examination of the skin revealed no evidence of significant rashes, suspicious appearing nevi or other concerning lesions. Neurologically the patient is sedated. - Labs CBC & Chem 7: 02/25/24 04:05 02/25/24 04:05 Labs: Abnormal Lab Results - Last 24 Hours (Table) 02/24/24 02/24/24 02/24/24 Range/Units 06:58 14:14 14:14 WBC (3.8-10.6) k/uL RBC 3.74 L (4.30-5.90) m/uL Hgb 10.8 L (13.0-17.5) gm/dL Hct 31.9 L (39.0-53.0) % Neutrophils # (1.3-7.7) k/uL Lymphocytes # (1.0-4.8) k/uL ABG pO2 (83-108) mmHg ABG HCO3 (21-25) mmol/L ABG Total CO2 (19-24) mmol/L ABG O2 Saturation (94-97) % Sodium (137-145) mmol/L Chloride (98-107) mmol/L BUN (9-20) mg/dL Glucose (74-99) mg/dL POC Glucose (mg/dL) (70-110) mg/dL Calcium (8.4-10.2) mg/dL Magnesium (1.6-2.3) mg/dL Total Bilirubin (0.2-1.3) mg/dL AST (17-59) U/L ALT (4-49) U/L Total Protein (6.3-8.2) g/dL Albumin (3.5-5.0) g/dL HDL Cholesterol 25.50 L (40.00-60.00) mg/dL Urine Protein (Negative) Urine Ketones (Negative) Urine Bilirubin (Negative) Ur Leukocyte Esterase (Negative) Urine WBC (0-5) /hpf Urine Mucus (None) /hpf Crossmatch See Detail 02/24/24 02/24/24 02/24/24 Range/Units 15:24 15:49 16:13 WBC 12.5 H (3.8-10.6) k/uL RBC 2.99 L (4.30-5.90) m/uL Hgb 8.9 L D (13.0-17.5) gm/dL Hct 25.4 L (39.0-53.0) % Neutrophils # (1.3-7.7) k/uL Lymphocytes # (1.0-4.8) k/uL ABG pO2 (83-108) mmHg ABG HCO3 (21-25) mmol/L ABG Total CO2 (19-24) mmol/L ABG O2 Saturation (94-97) % Sodium (137-145) mmol/L Chloride (98-107) mmol/L BUN (9-20) mg/dL Glucose (74-99) mg/dL POC Glucose (mg/dL) 119 H (70-110) mg/dL Calcium (8.4-10.2) mg/dL Magnesium (1.6-2.3) mg/dL Total Bilirubin (0.2-1.3) mg/dL AST (17-59) U/L ALT (4-49) U/L Total Protein (6.3-8.2) g/dL Albumin (3.5-5.0) g/dL HDL Cholesterol (40.00-60.00) mg/dL Urine Protein Trace H (Negative) Urine Ketones Trace H (Negative) Urine Bilirubin 1+ H (Negative) Ur Leukocyte Esterase Moderate H (Negative) Urine WBC 17 H (0-5) /hpf Urine Mucus Rare H (None) /hpf Crossmatch 02/24/24 02/24/24 02/24/24 Range/Units 16:41 17:16 23:42 WBC (3.8-10.6) k/uL RBC (4.30-5.90) m/uL Hgb (13.0-17.5) gm/dL Hct (39.0-53.0) % Neutrophils # (1.3-7.7) k/uL Lymphocytes # (1.0-4.8) k/uL ABG pO2 >420 H (83-108) mmHg ABG HCO3 (21-25) mmol/L ABG Total CO2 25 H (19-24) mmol/L ABG O2 Saturation 100.5 H (94-97) % Sodium (137-145) mmol/L Chloride (98-107) mmol/L BUN (9-20) mg/dL Glucose (74-99) mg/dL POC Glucose (mg/dL) 162 H 170 H (70-110) mg/dL Calcium (8.4-10.2) mg/dL Magnesium (1.6-2.3) mg/dL Total Bilirubin (0.2-1.3) mg/dL AST (17-59) U/L ALT (4-49) U/L Total Protein (6.3-8.2) g/dL Albumin (3.5-5.0) g/dL HDL Cholesterol (40.00-60.00) mg/dL Urine Protein (Negative) Urine Ketones (Negative) Urine Bilirubin (Negative) Ur Leukocyte Esterase (Negative) Urine WBC (0-5) /hpf Urine Mucus (None) /hpf Crossmatch 02/25/24 02/25/2424 Range/Units 01:20 04:04 04:05 WBC 11.0 H 12.2 H (3.8-10.6) k/uL RBC 3.47 L 3.51 L (4.30-5.90) m/uL Hgb 9.9 L 9.8 L (13.0-17.5) gm/dL Hct 30.3 L 30.4 L (39.0-53.0) % Neutrophils # 9.9 H (1.3-7.7) k/uL Lymphocytes # 0.5 L (1.0-4.8) k/uL ABG pO2 (83-108) mmHg ABG HCO3 (21-25) mmol/L ABG Total CO2 (19-24) mmol/L ABG O2 Saturation (94-97) % Sodium (137-145) mmol/L Chloride (98-107) mmol/L BUN (9-20) mg/dL Glucose (74-99) mg/dL POC Glucose (mg/dL) 170 H (70-110) mg/dL Calcium (8.4-10.2) mg/dL Magnesium (1.6-2.3) mg/dL Total Bilirubin (0.2-1.3) mg/dL AST (17-59) U/L ALT (4-49) U/L Total Protein (6.3-8.2) g/dL Albumin (3.5-5.0) g/dL HDL Cholesterol (40.00-60.00) mg/dL Urine Protein (Negative) Urine Ketones (Negative) Urine Bilirubin (Negative) Ur Leukocyte Esterase (Negative) Urine WBC (0-5) /hpf Urine Mucus (None) /hpf Crossmatch 02/25/24 02/25/24 Range/Units 04:05 05:49 WBC (3.8-10.6) k/uL RBC (4.30-5.90) m/uL Hgb (13.0-17.5) gm/dL Hct (39.0-53.0) % Neutrophils # (1.3-7.7) k/uL Lymphocytes # (1.0-4.8) k/uL ABG pO2 155 H (83-108) mmHg ABG HCO3 26 H (21-25) mmol/L ABG Total CO2 28 H (19-24) mmol/L ABG O2 Saturation 99.9 H (94-97) % Sodium 136 L (137-145) mmol/L Chloride 108 H (98-107) mmol/L BUN 22 H (9-20) mg/dL Glucose 154 H (74-99) mg/dL POC Glucose (mg/dL) (70-110) mg/dL Calcium 7.7 L (8.4-10.2) mg/dL Magnesium 1.5 L (1.6-2.3) mg/dL Total Bilirubin 4.3 H (0.2-1.3) mg/dL AST 196 H (17-59) U/L ALT 139 H (4-49) U/L Total Protein 4.8 L (6.3-8.2) g/dL Albumin 2.7 L (3.5-5.0) g/dL HDL Cholesterol (40.00-60.00) mg/dL Urine Protein (Negative) Urine Ketones (Negative) Urine Bilirubin (Negative) Ur Leukocyte Esterase (Negative) Urine WBC (0-5) /hpf Urine Mucus (None) /hpf Crossmatch Microbiology - Last 24 Hours (Table) 02/23/24 12:10 Blood Culture Gram Stain - Preliminary Blood Blood Culture - Preliminary Enterococcus faecium Molecular ID 02/23/24 11:40 Blood Culture - Preliminary Blood Assessment and Plan Plan: Acute cholecystitis and the patient underwent an open cholecystectomy. The patient is currently postop day #1. Significant blood loss intraoperatively and the patient was sedated with fluids, colloids/albumin and received a total of 2 units of of packed RBC and a unit of platelets. The patient currently is on no pressors. The BRADLEY output is minimal Acute enterococcal septicemia secondary to cholecystitis and the patient is currently on a combination of daptomycin and Zosyn. The patient has Enterococcus faecium in the blood cultures, likely VRE Acute respiratory failure post Gallbladder Surgery. Patient Was kept intubated for surgery due to ongoing comorbidities and hemodynamic instability and blood loss. Oxygenation is stable for now Previous history of CVA History of hypertension Hyperlipidemia Lewy body dementia with Parkinson disease at baseline Plan Wean off propofol Assess mental status Check weaning parameters Assess evidence to wean Continue IV fluids and the patient is currently on lactated Ringer at rate of 125 cc an hour Continue Zosyn and daptomycin for now Monitor the blood pressure utilize Levophed as needed, currently off pressors Monitor the output from the BRADLEY drain, output is minimal Stop antihypertensive medications IV Protonix Lovenox for DVT prophylaxis Critical care evaluation was done more than 30 minutes. Working progress, possible extubation depending on his progress. Time with Patient: Greater than 30
--- NOTE | 2024-02-25 15:06 | P.PN ---
Subjective Progress Note Date: 02/25/24 Matthieu Baird is a 68-year-old male with a history of Lewy body dementia, Parkinsons disease, CVA, type 2 diabetes, hypertension and hyperlipidemia. He came into the emergency department with a chief complaint of chest pain. EKG showed normal sinus rhythm with sinus arrhythmia and a right bundle branch block. Chest x-ray found no acute significant findings. Chest CT shows unremarkable findings. Labs showed WBC 14.7, troponin less than 0.12, AST 224, ALT 20, glucose 179, D-dimer 1.93, and proBNP 291. Patient was admitted for further investigation. Gallbladder ultrasound was ordered and found to have acute cholecystitis with distended gallbladder, wall thickening and pericholecystic fluid and sludge. Surgical consult was made and patient was sent to the OR for lap cholecystectomy on 02/24/2024. Converted procedure to open cholecystectomy due to significant adhesions seen. Patient was given a total of 1.5 L of crystalloid fluid, 1 unit of packed RBC and 1000 cc of albumin. Blood cutlures grew Enterococcus, likely VRE. ID was consulted and is following patient. Patient was taken to the ICU for hemodynamic instability and recovery. 02/25/24 No significant events over night. Patient is post-operation day 1. BRADLEY drain shows minimal output. Still on NPO. He remains intubated but comfortable on the mechanical ventilator with minimal support. He still does not follow commands but grimaces to pain. Assisted-control mode at a rate of 60, Tidal volume 400, FiO2 40%, PEEP 5. ABG ph 7.41 CO2 42 O2 155 HCO3 26. He is afebrile and hemodynamically stable at this time. Labs show WBC 12.2, hemoglobin 9.8, platelet count of 201. Chem labs show BUN 22, creatinine 0.9, AST 196. ALT 139, ALP 115. Cultures grew Enterococcus. Patient still on empiric bacterial coverage with Zosyn and Daptomycin. Objective - Vital Signs Vital signs: Vital Signs Temp 98 F 02/25/24 12:00 Pulse 78 02/25/24 13:00 Resp 28 H 02/25/24 13:00 BP 117/55 02/24/24 23:25 Pulse Ox 98 02/25/24 13:00 FiO2 30 02/25/24 12:13 Intake & Output 02/24/24 02/25/24 02/25/24 18:59 06:59 18:59 Intake Total 2952 3150.434 1173.381 Output Total 1250 810 230 Balance 1702 2340.434 943.381 Weight 88 kg Intake: IV 2300 2633 896 Sherly 33 21 Lactated Ringers 1,000 ml 1500 875 @ 125 mls/hr IV .Q8H [facility] Rx#:[id number] Lactated Ringers 1,000 ml 1000 1000 @ 999 mls/hr IV .[id number] [facility] Rx#:[id number] Piperacillin-Tazobactam 3 100 100 .375 gm In Sodium Chloride 0.9% 100 ml @ 25 mls/hr IVPB Q8HR [facility] Rx# :[id number] Intake, IV Titration 207.434 207.381 Amount DAPTOmycin 500 mg In 50 Sodium Chloride 0.9% 50 ml @ 100 mls/hr IVPB Q24HR [facility] Rx#:[id number] Norepinephrine 4 mg In 62.665 1.555 Sodium Chloride 0.9% 250 ml @ 0.03 MCG/KG/MIN 11. 665 mls/hr IV .[id number] [facility] Rx#:[id number] Piperacillin-Tazobactam 3 100 .375 gm In Sodium Chloride 0.9% 100 ml @ 25 mls/hr IVPB Q8HR [facility] Rx# :[id number] propofoL 1,000 mg In 144.769 55.826 Empty Bag 1 bag @ 15 MCG/ KG/MIN 9.185 mls/hr IV . [id number] [facility] Rx#:[id number] Blood Product 652 310 Platelet Pheresis Pas 342 Psoralen Unit [id number] As-1 Unit 310 [id number] As-1 Unit 310 [id number] Other 70 Output: Gastric Drainage 210 Drainage 65 Right Abdomen 65 Urine 250 535 230 Estimated Blood Loss 1000 Other: Voiding Method Indwelling Catheter Indwelling Catheter Indwelling Catheter ABP, PAP, CO, CI - Last Documented Arterial Blood Pressure 110/46 - Constitutional General appearance: Present: no acute distress - EENT Eyes: Present: anicteric sclerae, PERRLA, poor dentition ENT: Present: NA/AT - Neck Details: neck is supple, no masses or trauma, range of motion cannot be assessed Carotids: bilateral: upstroke normal, bruit absent Thyroid: negative: normal size - Respiratory Respiratory: bilateral: CTA, negative: diminished, dullness, rales, rhonchi, wheezing, prolonged expiration, prolonged inspiration - Cardiovascular Rhythm: regular Heart sounds: normal: S1, S2 - Gastrointestinal Gastrointestinal Comment(s): in abdominal binder, surgical site bandaged, dry and clean - Integumentary Integumentary: Present: normal turgor - Neurologic Neurologic Comment(s): grimaces to pain, does not follow commands - Musculoskeletal Musculoskeletal Comment(s): unable to assess - Labs CBC & Chem 7: 02/25/24 04:05 02/25/24 04:05 Labs: Abnormal Lab Results - Last 24 Hours (Table) 02/24/24 02/24/24 02/24/24 Range/Units 14:14 14:14 15:24 WBC (3.8-10.6) k/uL RBC 3.74 L (4.30-5.90) m/uL Hgb 10.8 L (13.0-17.5) gm/dL Hct 31.9 L (39.0-53.0) % Neutrophils # (1.3-7.7) k/uL Lymphocytes # (1.0-4.8) k/uL ABG pO2 (83-108) mmHg ABG HCO3 (21-25) mmol/L ABG Total CO2 (19-24) mmol/L ABG O2 Saturation (94-97) % Sodium (137-145) mmol/L Chloride (98-107) mmol/L BUN (9-20) mg/dL Glucose (74-99) mg/dL POC Glucose (mg/dL) (70-110) mg/dL Calcium (8.4-10.2) mg/dL Magnesium (1.6-2.3) mg/dL Total Bilirubin (0.2-1.3) mg/dL AST (17-59) U/L ALT (4-49) U/L Total Protein (6.3-8.2) g/dL Albumin (3.5-5.0) g/dL Urine Protein Trace H (Negative) Urine Ketones Trace H (Negative) Urine Bilirubin 1+ H (Negative) Ur Leukocyte Esterase Moderate H (Negative) Urine WBC 17 H (0-5) /hpf Urine Mucus Rare H (None) /hpf Crossmatch See Detail 02/24/24 02/24/24 02/24/24 Range/Units 15:49 16:13 16:41 WBC 12.5 H (3.8-10.6) k/uL RBC 2.99 L (4.30-5.90) m/uL Hgb 8.9 L D (13.0-17.5) gm/dL Hct 25.4 L (39.0-53.0) % Neutrophils # (1.3-7.7) k/uL Lymphocytes # (1.0-4.8) k/uL ABG pO2 >420 H (83-108) mmHg ABG HCO3 (21-25) mmol/L ABG Total CO2 25 H (19-24) mmol/L ABG O2 Saturation 100.5 H (94-97) % Sodium (137-145) mmol/L Chloride (98-107) mmol/L BUN (9-20) mg/dL Glucose (74-99) mg/dL POC Glucose (mg/dL) 119 H (70-110) mg/dL Calcium (8.4-10.2) mg/dL Magnesium (1.6-2.3) mg/dL Total Bilirubin (0.2-1.3) mg/dL AST (17-59) U/L ALT (4-49) U/L Total Protein (6.3-8.2) g/dL Albumin (3.5-5.0) g/dL Urine Protein (Negative) Urine Ketones (Negative) Urine Bilirubin (Negative) Ur Leukocyte Esterase (Negative) Urine WBC (0-5) /hpf Urine Mucus (None) /hpf Crossmatch 02/24/24 02/24/24 02/25/24 Range/Units 17:16 23:42 01:20 WBC 11.0 H (3.8-10.6) k/uL RBC 3.47 L (4.30-5.90) m/uL Hgb 9.9 L (13.0-17.5) gm/dL Hct 30.3 L (39.0-53.0) % Neutrophils # 9.9 H (1.3-7.7) k/uL Lymphocytes # 0.5 L (1.0-4.8) k/uL ABG pO2 (83-108) mmHg ABG HCO3 (21-25) mmol/L ABG Total CO2 (19-24) mmol/L ABG O2 Saturation (94-97) % Sodium (137-145) mmol/L Chloride (98-107) mmol/L BUN (9-20) mg/dL Glucose (74-99) mg/dL POC Glucose (mg/dL) 162 H 170 H (70-110) mg/dL Calcium (8.4-10.2) mg/dL Magnesium (1.6-2.3) mg/dL Total Bilirubin (0.2-1.3) mg/dL AST (17-59) U/L ALT (4-49) U/L Total Protein (6.3-8.2) g/dL Albumin (3.5-5.0) g/dL Urine Protein (Negative) Urine Ketones (Negative) Urine Bilirubin (Negative) Ur Leukocyte Esterase (Negative) Urine WBC (0-5) /hpf Urine Mucus (None) /hpf Crossmatch 02/25/24 02/25/24 02/25/24 Range/Units 04:04 04:05 04:05 WBC 12.2 H (3.8-10.6) k/uL RBC 3.51 L (4.30-5.90) m/uL Hgb 9.8 L (13.0-17.5) gm/dL Hct 30.4 L (39.0-53.0) % Neutrophils # (1.3-7.7) k/uL Lymphocytes # (1.0-4.8) k/uL ABG pO2 (83-108) mmHg ABG HCO3 (21-25) mmol/L ABG Total CO2 (19-24) mmol/L ABG O2 Saturation (94-97) % Sodium 136 L (137-145) mmol/L Chloride 108 H (98-107) mmol/L BUN 22 H (9-20) mg/dL Glucose 154 H (74-99) mg/dL POC Glucose (mg/dL) 170 H (70-110) mg/dL Calcium 7.7 L (8.4-10.2) mg/dL Magnesium 1.5 L (1.6-2.3) mg/dL Total Bilirubin 4.3 H (0.2-1.3) mg/dL AST 196 H (17-59) U/L ALT 139 H (4-49) U/L Total Protein 4.8 L (6.3-8.2) g/dL Albumin 2.7 L (3.5-5.0) g/dL Urine Protein (Negative) Urine Ketones (Negative) Urine Bilirubin (Negative) Ur Leukocyte Esterase (Negative) Urine WBC (0-5) /hpf Urine Mucus (None) /hpf Crossmatch 02/25/24 02/25/24 Range/Units 05:49 11:40 WBC (3.8-10.6) k/uL RBC (4.30-5.90) m/uL Hgb (13.0-17.5) gm/dL Hct (39.0-53.0) % Neutrophils # (1.3-7.7) k/uL Lymphocytes # (1.0-4.8) k/uL ABG pO2 155 H (83-108) mmHg ABG HCO3 26 H (21-25) mmol/L ABG Total CO2 28 H (19-24) mmol/L ABG O2 Saturation 99.9 H (94-97) % Sodium (137-145) mmol/L Chloride (98-107) mmol/L BUN (9-20) mg/dL Glucose (74-99) mg/dL POC Glucose (mg/dL) 139 H (70-110) mg/dL Calcium (8.4-10.2) mg/dL Magnesium (1.6-2.3) mg/dL Total Bilirubin (0.2-1.3) mg/dL AST (17-59) U/L ALT (4-49) U/L Total Protein (6.3-8.2) g/dL Albumin (3.5-5.0) g/dL Urine Protein (Negative) Urine Ketones (Negative) Urine Bilirubin (Negative) Ur Leukocyte Esterase (Negative) Urine WBC (0-5) /hpf Urine Mucus (None) /hpf Crossmatch Microbiology - Last 24 Hours (Table) 02/23/24 12:10 Blood Culture Gram Stain - Preliminary Blood Blood Culture - Preliminary Enterococcus faecium Molecular ID 02/23/24 11:40 Blood Culture - Preliminary Blood - Imaging and Cardiology Chest x-ray: report reviewed Assessment and Plan Assessment: Acute cholecystitis and the patient underwent an open cholecystectomy. Patient is post-operation day 1. BRADLEY drain output is minimal. Placed on sedation, and given fluids, albumin, 2 units pRBC and a unit of platelets. Not on hemodynamic support. Acute enterococcal septicemia secondary to cholecystitis. Blood cultures grew Enterococcus faecium, likely VRE. Currently on Zosyn and Vancomycin. Acute respiratory failure post cholecystectomy. Patient Was kept intubated for surgery due to ongoing comorbidities and hemodynamic instability and blood loss. Oxygenation is stable for now. Mechanical ventilation at Assisted-control mode at a rate of 60, Tidal volume 400, FiO2 40%, PEEP 5. Lewy body dementia with Parkinson disease at baseline Previous history of CVA Hyperglycemia Hyperlipidemia History of hypertension Plan: Continue to monitor in ICU Monitor and assess mental status Maintain intubation and mechanical ventilation due to mental status Continue Zosyn and Daptomycin Continue IV fluids of Lactate ringers 125cc/hr Wean off propofol Continue to monitor blood pressure. Levophed PRN GI prophylaxis (Protonix) DVT Prophylaxis (Lovenox) Monitor BRADLEY drain output Stop antihypertensive medications Prognosis is guarded. Goal of extubation depending on mental status progress Time with Patient: Greater than 30
--- NOTE | 2024-02-25 15:47 | P.PN ---
Subjective Progress Note Date: 02/25/24 Principal diagnosis: Reason for follow-up is acute cholecystitis and bacteremia Patient is a 68-year-old male with a past medical history significant for diabetes mellitus hypertension sleep apnea CVA TIA Parkinson disease patient was brought into the hospital initially for chest pain has been diagnosed with acute cholecystitis and also have VRE bacteremia. Patient is status post laparoscopic cholecystectomy on 02/24/2024 subsequent requiring admission to the ICU on the ventilator. On today's evaluation that is 02/25/2024 patient remains to be afebrile patient remains to be intubated on the vent FiO2 is currently stable at 30% no significant purulent secretions through the ET diarrhea or any other change reported by the nursing staff patient is hemodynamically stable not requiring any pressor support. Patient white count is 12.2 creatinine 0.91 liver enzymes elevated repeat blood cultures pending Objective - Vital Signs Vital signs: Vital Signs Temp 98.4 F 02/25/24 08:00 Pulse 78 02/25/24 11:15 Resp 17 02/25/24 11:15 BP 117/55 02/24/24 23:25 Pulse Ox 98 02/25/24 11:15 FiO2 30 02/25/24 12:13 Intake & Output 02/24/24 02/25/24 02/25/24 18:59 06:59 18:59 Intake Total 2952 3150.434 1045.381 Output Total 1250 810 200 Balance 1702 2340.434 845.381 Weight 88 kg Intake: IV 2300 2633 768 [place] 33 18 Lactated Ringers 1,000 ml 1500 750 @ 125 mls/hr IV .Q8H [facility] Rx#:[id number] Lactated Ringers 1,000 ml 1000 1000 @ 999 mls/hr IV .Q1H1M [facility] Rx#:[id number] Piperacillin-Tazobactam 3 100 100 .375 gm In Sodium Chloride 0.9% 100 ml @ 25 mls/hr IVPB Q8HR [facility] Rx# :[id number] Intake, IV Titration 207.434 207.381 Amount DAPTOmycin 500 mg In 50 Sodium Chloride 0.9% 50 ml @ 100 mls/hr IVPB Q24HR [facility] Rx#:[id number] Norepinephrine 4 mg In 62.665 1.555 Sodium Chloride 0.9% 250 ml @ 0.03 MCG/KG/MIN 11. 665 mls/hr IV .[id number] [facility] Rx#:[id number] Piperacillin-Tazobactam 3 100 .375 gm In Sodium Chloride 0.9% 100 ml @ 25 mls/hr IVPB Q8HR [facility] Rx# :[id number] propofoL 1,000 mg In 144.769 55.826 Empty Bag 1 bag @ 15 MCG/ KG/MIN 9.185 mls/hr IV . [id number] [facility] Rx#:[id number] Blood Product 652 310 Platelet Pheresis Pas 342 Psoralen Unit [id number] As-1 Unit 310 [id number] As-1 Unit 310 [id number] Other 70 Output: Gastric Drainage 210 Drainage 65 Right Abdomen 65 Urine 250 535 200 Estimated Blood Loss 1000 Other: Voiding Method Indwelling Catheter Indwelling Catheter Indwelling Catheter ABP, PAP, CO, CI - Last Documented Arterial Blood Pressure 114/54 - Exam GENERAL DESCRIPTION: An elderly male intubated on the vent RESPIRATORY SYSTEM: Unlabored breathing , decreased breath sounds at bases HEART: S1 S2 regular rate and rhythm , ABDOMEN: Soft , no tenderness EXTREMITIES: No edema feet - Labs CBC & Chem 7: 02/25/24 04:05 02/25/24 04:05 Labs: Abnormal Lab Results - Last 24 Hours (Table) 02/24/24 02/24/24 02/24/24 Range/Units 14:14 14:14 15:24 WBC (3.8-10.6) k/uL RBC 3.74 L (4.30-5.90) m/uL Hgb 10.8 L (13.0-17.5) gm/dL Hct 31.9 L (39.0-53.0) % Neutrophils # (1.3-7.7) k/uL Lymphocytes # (1.0-4.8) k/uL ABG pO2 (83-108) mmHg ABG HCO3 (21-25) mmol/L ABG Total CO2 (19-24) mmol/L ABG O2 Saturation (94-97) % Sodium (137-145) mmol/L Chloride (98-107) mmol/L BUN (9-20) mg/dL Glucose (74-99) mg/dL POC Glucose (mg/dL) (70-110) mg/dL Calcium (8.4-10.2) mg/dL Magnesium (1.6-2.3) mg/dL Total Bilirubin (0.2-1.3) mg/dL AST (17-59) U/L ALT (4-49) U/L Total Protein (6.3-8.2) g/dL Albumin (3.5-5.0) g/dL Urine Protein Trace H (Negative) Urine Ketones Trace H (Negative) Urine Bilirubin 1+ H (Negative) Ur Leukocyte Esterase Moderate H (Negative) Urine WBC 17 H (0-5) /hpf Urine Mucus Rare H (None) /hpf Crossmatch See Detail 02/24/24 02/24/24 02/24/24 Range/Units 15:49 16:13 16:41 WBC 12.5 H (3.8-10.6) k/uL RBC 2.99 L (4.30-5.90) m/uL Hgb 8.9 L D (13.0-17.5) gm/dL Hct 25.4 L (39.0-53.0) % Neutrophils # (1.3-7.7) k/uL Lymphocytes # (1.0-4.8) k/uL ABG pO2 >420 H (83-108) mmHg ABG HCO3 (21-25) mmol/L ABG Total CO2 25 H (19-24) mmol/L ABG O2 Saturation 100.5 H (94-97) % Sodium (137-145) mmol/L Chloride (98-107) mmol/L BUN (9-20) mg/dL Glucose (74-99) mg/dL POC Glucose (mg/dL) 119 H (70-110) mg/dL Calcium (8.4-10.2) mg/dL Magnesium (1.6-2.3) mg/dL Total Bilirubin (0.2-1.3) mg/dL AST (17-59) U/L ALT (4-49) U/L Total Protein (6.3-8.2) g/dL Albumin (3.5-5.0) g/dL Urine Protein (Negative) Urine Ketones (Negative) Urine Bilirubin (Negative) Ur Leukocyte Esterase (Negative) Urine WBC (0-5) /hpf Urine Mucus (None) /hpf Crossmatch 02/24/24 02/24/24 02/25/24 Range/Units 17:16 23:42 01:20 WBC 11.0 H (3.8-10.6) k/uL RBC 3.47 L (4.30-5.90) m/uL Hgb 9.9 L (13.0-17.5) gm/dL Hct 30.3 L (39.0-53.0) % Neutrophils # 9.9 H (1.3-7.7) k/uL Lymphocytes # 0.5 L (1.0-4.8) k/uL ABG pO2 (83-108) mmHg ABG HCO3 (21-25) mmol/L ABG Total CO2 (19-24) mmol/L ABG O2 Saturation (94-97) % Sodium (137-145) mmol/L Chloride (98-107) mmol/L BUN (9-20) mg/dL Glucose (74-99) mg/dL POC Glucose (mg/dL) 162 H 170 H (70-110) mg/dL Calcium (8.4-10.2) mg/dL Magnesium (1.6-2.3) mg/dL Total Bilirubin (0.2-1.3) mg/dL AST (17-59) U/L ALT (4-49) U/L Total Protein (6.3-8.2) g/dL Albumin (3.5-5.0) g/dL Urine Protein (Negative) Urine Ketones (Negative) Urine Bilirubin (Negative) Ur Leukocyte Esterase (Negative) Urine WBC (0-5) /hpf Urine Mucus (None) /hpf Crossmatch 02/25/24 02/25/24 02/25/24 Range/Units 04:04 04:05 04:05 WBC 12.2 H (3.8-10.6) k/uL RBC 3.51 L (4.30-5.90) m/uL Hgb 9.8 L (13.0-17.5) gm/dL Hct 30.4 L (39.0-53.0) % Neutrophils # (1.3-7.7) k/uL Lymphocytes # (1.0-4.8) k/uL ABG pO2 (83-108) mmHg ABG HCO3 (21-25) mmol/L ABG Total CO2 (19-24) mmol/L ABG O2 Saturation (94-97) % Sodium 136 L (137-145) mmol/L Chloride 108 H (98-107) mmol/L BUN 22 H (9-20) mg/dL Glucose 154 H (74-99) mg/dL POC Glucose (mg/dL) 170 H (70-110) mg/dL Calcium 7.7 L (8.4-10.2) mg/dL Magnesium 1.5 L (1.6-2.3) mg/dL Total Bilirubin 4.3 H (0.2-1.3) mg/dL AST 196 H (17-59) U/L ALT 139 H (4-49) U/L Total Protein 4.8 L (6.3-8.2) g/dL Albumin 2.7 L (3.5-5.0) g/dL Urine Protein (Negative) Urine Ketones (Negative) Urine Bilirubin (Negative) Ur Leukocyte Esterase (Negative) Urine WBC (0-5) /hpf Urine Mucus (None) /hpf Crossmatch 02/25/24 02/25/24 Range/Units 05:49 11:40 WBC (3.8-10.6) k/uL RBC (4.30-5.90) m/uL Hgb (13.0-17.5) gm/dL Hct (39.0-53.0) % Neutrophils # (1.3-7.7) k/uL Lymphocytes # (1.0-4.8) k/uL ABG pO2 155 H (83-108) mmHg ABG HCO3 26 H (21-25) mmol/L ABG Total CO2 28 H (19-24) mmol/L ABG O2 Saturation 99.9 H (94-97) % Sodium (137-145) mmol/L Chloride (98-107) mmol/L BUN (9-20) mg/dL Glucose (74-99) mg/dL POC Glucose (mg/dL) 139 H (70-110) mg/dL Calcium (8.4-10.2) mg/dL Magnesium (1.6-2.3) mg/dL Total Bilirubin (0.2-1.3) mg/dL AST (17-59) U/L ALT (4-49) U/L Total Protein (6.3-8.2) g/dL Albumin (3.5-5.0) g/dL Urine Protein (Negative) Urine Ketones (Negative) Urine Bilirubin (Negative) Ur Leukocyte Esterase (Negative) Urine WBC (0-5) /hpf Urine Mucus (None) /hpf Crossmatch Microbiology - Last 24 Hours (Table) 02/23/24 12:10 Blood Culture Gram Stain - Preliminary Blood Blood Culture - Preliminary Enterococcus faecium Molecular ID 02/23/24 11:40 Blood Culture - Preliminary Blood Assessment and Plan (1) Sepsis Current Visit: Yes Status: Acute Code(s): A41.9 - SEPSIS, UNSPECIFIED ORGANISM SNOMED Code(s): 91394716 (2) Cholecystitis Current Visit: Yes Status: Acute Code(s): K81.9 - CHOLECYSTITIS, UNSPECIFIED SNOMED Code(s): 39146801 (3) VRE bacteremia Current Visit: Yes Status: Acute Code(s): R78.81 - BACTEREMIA; B95.2 - ENTEROCOCCUS THE CAUSE OF DISEASES CLASSIFIED ELSEWHERE; Z16.21 - RESISTANCE TO VANCOMYCIN SNOMED Code(s): 0784897745 (4) Allergy to cephalosporin Current Visit: Yes Status: Acute Code(s): Z88.1 - ALLERGY STATUS TO OTHER ANTIBIOTIC AGENTS SNOMED Code(s): 838390302 Plan: 1patient presented hospital with sepsis in this patient who did have fever elevated white count source is acute cholecystitis usually associated with a gram-negative bacteria and also secondary to Enterococcus 2-VRE bacteremia source could be acute gastritis 3-blood culture has been repeated and currently pending 4-cephalexin allergy however the patient tolerated Zosyn during this admission but no bowel 5-patient to continue with the daptomycin and Zosyn while waiting for condition to stabilize Dictation was produced using [employer] dictation software. please excuse any grammatical, word or spelling errors. Time with Patient: Less than 30
--- NOTE | 2024-02-25 17:40 | P.PN ---
Subjective Progress Note Date: 02/25/24 CHIEF COMPLAINT: Cholecystitis HISTORY OF PRESENT ILLNESS: The patient is a 68-year-old male admitted with atypical chest pain and findings of acute cholecystitis. He is status post laparoscopic converted to open 02/24/2024. He is postop day 1. Patient is intubated in the intensive care unit. He is not on pressors. He has a orogastric tube. ROS: No reports of nausea and vomiting. No bowel movements. No fevers or chills. PHYSICAL EXAM: VITAL SIGNS: Reviewed CONSTITUTIONAL: Well developed and in no acute distress. EYES: Conjuctivae without sclera icterus. Extraocular movements grossly intact. HEAD, EARS, NOSE, THROAT: Moist buccal mucosa. Head is atraumatic, normocephalic. Hears conversational speech. No nasal drainage. Poor dentition. RESPIRATORY: Non-labored respirations and equal bilateral excursions. CARDIOVASCULAR: Palpable 2+ radial pulses. ABDOMEN: Upper abdominal dressing intact. Puncture sites intact. BRADLEY drain sanguinous. MUSCULOSKELETAL: No gross deformity of the lower extremities noted. No clubbing. No cyanosis. SKIN: Good skin turgor. Well perfused. NEUROLOGIC: No focal or lateralizing signs. PSYCH: Depressed, sedated. CLINICAL LABS: Reviewed. WBC down from 14.7-12.2 since admission. LFTs elevated for overall downward trend, total bilirubin elevated 2.2-4.3. STUDIES: CT angiogram of the chest independently reviewed demonstrates no pneumothorax. No free air. Gallbladder distention. This is my independent interpretation. Ultrasound of the gallbladder independent review demonstrates multiple debris including gallstones with mild gallbladder wall thickening. This is my independent interpretation. REPORTS: Ultrasound of gallbladder report demonstrates acute cholecystitis. ASSESSMENT: 1. Acute cholecystitis 2. Acute respiratory failure status post cholecystectomy 3. Parkinson's disease PLAN: 1. Wean vent as tolerated including removal of orogastric tube. 2. Antibiotic management due to acute cholecystitis. 3. LFTs are elevated and will monitor trends. May benefit from GI consultation for possible choledochal lithiasis and need for ERCP Objective - Vital Signs Vital signs: Vital Signs Temp 99.1 F 02/25/24 16:00 Pulse 76 02/25/24 17:00 Resp 16 02/25/24 17:00 BP 117/55 02/24/24 23:25 Pulse Ox 99 02/25/24 17:00 FiO2 30 02/25/24 16:00 Intake & Output 02/24/24 02/25/24 02/25/24 18:59 06:59 18:59 Intake Total 2952 3150.434 1657.381 Output Total 1250 810 550 Balance 1702 2340.434 1107.381 Weight 88 kg Intake: IV 2300 2633 1280 [place] 33 30 Lactated Ringers 1,000 ml 1500 1250 @ 125 mls/hr IV .Q8H [facility] Rx#:[id number] Lactated Ringers 1,000 ml 1000 1000 @ 999 mls/hr IV .Q1H1M [facility] Rx#:[id number] Piperacillin-Tazobactam 3 100 100 .375 gm In Sodium Chloride 0.9% 100 ml @ 25 mls/hr IVPB Q8HR [facility] Rx# :[id number] Intake, IV Titration 207.434 307.381 Amount DAPTOmycin 500 mg In 50 Sodium Chloride 0.9% 50 ml @ 100 mls/hr IVPB Q24HR [facility] Rx#:[id number] Norepinephrine 4 mg In 62.665 1.555 Sodium Chloride 0.9% 250 ml @ 0.03 MCG/KG/MIN 11. 665 mls/hr IV .[id number] [facility] Rx#:[id number] Piperacillin-Tazobactam 3 200 .375 gm In Sodium Chloride 0.9% 100 ml @ 25 mls/hr IVPB Q8HR [facility] Rx# :[id number] propofoL 1,000 mg In 144.769 55.826 Empty Bag 1 bag @ 15 MCG/ KG/MIN 9.185 mls/hr IV . [id number] [facility] Rx#:[id number] Blood Product 652 310 Platelet Pheresis Pas 342 Psoralen Unit [id number] Rc As-1 Unit 310 [id number] Rc As-1 Unit 310 [id number] Other 70 Output: Gastric Drainage 210 200 Drainage 65 30 Right Abdomen 65 30 Urine 250 535 320 Estimated Blood Loss 1000 Other: Voiding Method Indwelling Catheter Indwelling Catheter Indwelling Catheter ABP, PAP, CO, CI - Last Documented Arterial Blood Pressure 104/42 - Labs CBC & Chem 7: 02/25/24 04:05 02/25/24 04:05 Labs: Abnormal Lab Results - Last 24 Hours (Table) 07/03/24 07/03/24 07/04/24 Range/Units 14:14 23:42 01:20 WBC 11.0 H (3.8-10.6) k/uL RBC 3.47 L (4.30-5.90) m/uL Hgb 9.9 L (13.0-17.5) gm/dL Hct 30.3 L (39.0-53.0) % Neutrophils # 9.9 H (1.3-7.7) k/uL Lymphocytes # 0.5 L (1.0-4.8) k/uL ABG pO2 (83-108) mmHg ABG HCO3 (21-25) mmol/L ABG Total CO2 (19-24) mmol/L ABG O2 Saturation (94-97) % Sodium (137-145) mmol/L Chloride (98-107) mmol/L BUN (9-20) mg/dL Glucose (74-99) mg/dL POC Glucose (mg/dL) 170 H (70-110) mg/dL Calcium (8.4-10.2) mg/dL Magnesium (1.6-2.3) mg/dL Total Bilirubin (0.2-1.3) mg/dL AST (17-59) U/L ALT (4-49) U/L Total Protein (6.3-8.2) g/dL Albumin (3.5-5.0) g/dL Crossmatch See Detail 02/25/24 02/25/24 02/25/24 Range/Units 04:04 04:05 04:05 WBC 12.2 H (3.8-10.6) k/uL RBC 3.51 L (4.30-5.90) m/uL Hgb 9.8 L (13.0-17.5) gm/dL Hct 30.4 L (39.0-53.0) % Neutrophils # (1.3-7.7) k/uL Lymphocytes # (1.0-4.8) k/uL ABG pO2 (83-108) mmHg ABG HCO3 (21-25) mmol/L ABG Total CO2 (19-24) mmol/L ABG O2 Saturation (94-97) % Sodium 136 L (137-145) mmol/L Chloride 108 H (98-107) mmol/L BUN 22 H (9-20) mg/dL Glucose 154 H (74-99) mg/dL POC Glucose (mg/dL) 170 H (70-110) mg/dL Calcium 7.7 L (8.4-10.2) mg/dL Magnesium 1.5 L (1.6-2.3) mg/dL Total Bilirubin 4.3 H (0.2-1.3) mg/dL AST 196 H (17-59) U/L ALT 139 H (4-49) U/L Total Protein 4.8 L (6.3-8.2) g/dL Albumin 2.7 L (3.5-5.0) g/dL Crossmatch 02/25/24 02/25/24 Range/Units 05:49 11:40 WBC (3.8-10.6) k/uL RBC (4.30-5.90) m/uL Hgb (13.0-17.5) gm/dL Hct (39.0-53.0) % Neutrophils # (1.3-7.7) k/uL Lymphocytes # (1.0-4.8) k/uL ABG pO2 155 H (83-108) mmHg ABG HCO3 26 H (21-25) mmol/L ABG Total CO2 28 H (19-24) mmol/L ABG O2 Saturation 99.9 H (94-97) % Sodium (137-145) mmol/L Chloride (98-107) mmol/L BUN (9-20) mg/dL Glucose (74-99) mg/dL POC Glucose (mg/dL) 139 H (70-110) mg/dL Calcium (8.4-10.2) mg/dL Magnesium (1.6-2.3) mg/dL Total Bilirubin (0.2-1.3) mg/dL AST (17-59) U/L ALT (4-49) U/L Total Protein (6.3-8.2) g/dL Albumin (3.5-5.0) g/dL Crossmatch Microbiology - Last 24 Hours (Table) 02/23/24 11:40 Blood Culture - Preliminary Blood 02/23/24 12:10 Blood Culture Gram Stain - Preliminary Blood Blood Culture - Preliminary Enterococcus faecium Molecular ID
[2024-02-25 18:11] LABS: Glucose,Whole Blood 150 mg/dL (70-110)
[2024-02-25 22:58] LABS: Glucose,Whole Blood 167 mg/dL (70-110)
[2024-02-26 04:08] LABS: Glucose,Whole Blood 163 mg/dL (70-110)
[2024-02-26 04:37] LABS: ALT 32 U/L (4-49); AST 84 U/L (17-59); African American GFR (CKD) >90 (>60 ml/min/1.73 sqM); Albumin 2.3 g/dL (3.5-5.0); Alkaline Phosphatase 98 U/L (38-126); Anion Gap 4 mmol/L; Blood Urea Nitrogen 20 mg/dL (9-20); Calcium 7.5 mg/dL (8.4-10.2); Carbon Dioxide 25 mmol/L (22-30); Chloride 107 mmol/L (98-107); Glucose 135 mg/dL (74-99); Non-African American GFR(CKD) 88 (>60 ml/min/1.73 sqM); Potassium 3.8 mmol/L (3.5-5.1); Sodium 136 mmol/L (137-145); Total Bilirubin 2.1 mg/dL (0.2-1.3); Total Protein 4.4 g/dL (6.3-8.2)
[2024-02-26] MEDS ORDERED: Potassium Replacement Protocol 1 EACH MISC MISCELLANE PRN (04:39)
[2024-02-26] MEDS: POTASSIUM BICARBONATE/CIT AC 20 MEQ TABLET.EFF NG-TUBE SCH (04:55)
[2024-02-26 04:58] LABS: Basophils % (A) 0 %; Eosinophils % (A) 0 %; HCT 24.8 % (39.0-53.0); HGB 8.4 gm/dL (13.0-17.5); Lymphocytes # (A) 0.6 k/uL (1.0-4.8); Lymphocytes % (A) 5 %; MCH 29.3 pg (25.0-35.0); MCHC 33.9 g/dL (31.0-37.0); MCV 86.4 fL (80.0-100.0); Mean Platelet Volume 7.7; Monocytes # (A) 0.6 k/uL (0-1.0); Monocytes % (A) 6 %; Neutrophils # (A) 9.9 k/uL (1.3-7.7); Neutrophils % (A) 88 %; Platelet Count 146 k/uL (150-450); RBC 2.87 m/uL (4.30-5.90); RDW 14.2 % (11.5-15.5); WBC 11.2 k/uL (3.8-10.6)
[2024-02-26 06:34] LABS: ABG Base Excess 4.4 mmol/L; ABG HCO3 29 mmol/L (21-25); ABG Oxygen Saturation 98.9 % (94-97); ABG PCO2 40 mmHg (35-45); ABG PH 7.47 (7.35-7.45); ABG PO2 96 mmHg (83-108); ABG TCO2 30 mmol/L (19-24); Allen Test Performed? Yes
--- NOTE | 2024-02-26 09:19 | XR ---
EXAMINATION TYPE: XR chest 1V portable DATE OF EXAM: 02/26/2024 Comparison: 02/25/2024 Clinical History: 68 year-old male tube placement Findings: Heart normal size. ET tube satisfactory. NG tube slightly short. Side hole is just at the GE junction level. Skin vikash overlie the right upper quadrant along with surgical drain. The radiographic exp osure is in the hypoventilatory status. There is some patchy density at the right base. Impression: 1. NG tube appears short. The sidehole is just at the GE junction. Consider slight further advancemen t so that the side hole enters the stomach. 2. Expiratory exposure. Patchy opacity at the right base probably atelectasis.
[2024-02-26] MEDS: PANTOPRAZOLE 40 MG/10 ML VIAL IVP SCH (09:32)
[2024-02-26 10:38] LABS: ABG HCO3 28 mmol/L (21-25); ABG Oxygen Saturation 98.4 % (94-97); ABG PCO2 38 mmHg (35-45); ABG PH 7.48 (7.35-7.45); ABG PO2 87 mmHg (83-108); ABG TCO2 29 mmol/L (19-24)
[2024-02-26 11:26] LABS: Glucose,Whole Blood 154 mg/dL (70-110)
--- NOTE | 2024-02-26 12:25 | P.PN ---
Subjective Progress Note Date: 02/26/24 Principal diagnosis: Reason for follow-up is acute cholecystitis and bacteremia Patient is a 68-year-old male with a past medical history significant for diabetes mellitus hypertension sleep apnea CVA TIA Parkinson disease patient was brought into the hospital initially for chest pain has been diagnosed with acute cholecystitis and also have VRE bacteremia. Patient is status post laparoscopic cholecystectomy on 02/24/2024 subsequent requiring admission to the ICU on the ventilator. On today's evaluation that is 02/26/2024, the patient did have a low-grade fever of 100.4 F last night and 99.8 F at noon, the patient is on ventilator FiO2 is currently at 30%, patient is hemodynamically stable not requiring any pressor support no significant purulent secretions through the ET diarrhea or any other changes reported by nursing staff. Patient white count is down to 11.2, creatinine 0.87, blood culture with VRE that is sensitive to daptomycin Objective - Vital Signs Vital signs: Vital Signs Temp 99.8 F H 02/26/24 12:00 Pulse 93 02/26/24 12:00 Resp 19 02/26/24 12:00 BP 111/65 02/26/24 12:00 Pulse Ox 100 02/26/24 12:00 FiO2 30 02/26/24 12:00 Intake & Output 02/25/24 02/26/24 02/26/24 18:59 06:59 18:59 Intake Total 1107.049 6911.177 840 Output Total 730 520 160 Balance 0912.074 4621.177 680 Weight 92.3 kg Intake: IV 1536 1636 790 [place] 36 36 15 DAPTOmycin 500 mg In 50 Sodium Chloride 0.9% 50 ml @ 100 mls/hr IVPB Q24HR [facility] Rx#:[id number] Lactated Ringers 1,000 ml 1500 1500 625 @ 125 mls/hr IV .Q8H [facility] Rx#:[id number] Piperacillin-Tazobactam 3 100 .375 gm In Sodium Chloride 0.9% 100 ml @ 25 mls/hr IVPB Q8HR [facility] Rx# :[id number] Piperacillin-Tazobactam 3 100 .375 gm In Sodium Chloride 0.9% 100 ml @ 25 mls/hr IVPB Q8HR [facility] Rx# :[id number] Intake, IV Titration 309.455 61.177 Amount DAPTOmycin 500 mg In 50 Sodium Chloride 0.9% 50 ml @ 100 mls/hr IVPB Q24HR [facility] Rx#:[id number] Norepinephrine 4 mg In 3.629 61.177 Sodium Chloride 0.9% 250 ml @ 0.03 MCG/KG/MIN 11. 665 mls/hr IV .[id number] [facility] Rx#:[id number] Piperacillin-Tazobactam 3 200 .375 gm In Sodium Chloride 0.9% 100 ml @ 25 mls/hr IVPB Q8HR [facility] Rx# :[id number] propofoL 1,000 mg In 55.826 Empty Bag 1 bag @ 15 MCG/ KG/MIN 9.185 mls/hr IV . [id number] [facility] Rx#:[id number] Other 110 50 Output: Gastric Drainage 300 100 Drainage 30 70 Right Abdomen 30 70 Urine 400 350 160 Other: Voiding Method Indwelling Catheter Indwelling Catheter Indwelling Catheter ABP, PAP, CO, CI - Last Documented Arterial Blood Pressure 116/48 - Exam GENERAL DESCRIPTION: An elderly male intubated on the vent RESPIRATORY SYSTEM: Unlabored breathing , decreased breath sounds at bases HEART: S1 S2 regular rate and rhythm , ABDOMEN: Soft , no tenderness EXTREMITIES: No edema feet - Labs CBC & Chem 7: 02/26/24 03:58 02/26/24 03:58 Labs: Abnormal Lab Results - Last 24 Hours (Table) 02/25/24 02/25/24 02/26/24 Range/Units 18:09 22:57 03:58 WBC (3.8-10.6) k/uL RBC (4.30-5.90) m/uL Hgb (13.0-17.5) gm/dL Hct (39.0-53.0) % Plt Count (150-450) k/uL Neutrophils # (1.3-7.7) k/uL Lymphocytes # (1.0-4.8) k/uL ABG pH (7.35-7.45) ABG HCO3 (21-25) mmol/L ABG Total CO2 (19-24) mmol/L ABG O2 Saturation (94-97) % Sodium 136 L (137-145) mmol/L Glucose 135 H (74-99) mg/dL POC Glucose (mg/dL) 150 H 167 H (70-110) mg/dL Calcium 7.5 L (8.4-10.2) mg/dL Total Bilirubin 2.1 H (0.2-1.3) mg/dL AST 84 H (17-59) U/L Total Protein 4.4 L (6.3-8.2) g/dL Albumin 2.3 L (3.5-5.0) g/dL 02/26/24 02/26/24 02/26/24 Range/Units 03:58 04:06 06:31 WBC 11.2 H (3.8-10.6) k/uL RBC 2.87 L (4.30-5.90) m/uL Hgb 8.4 L (13.0-17.5) gm/dL Hct 24.8 L (39.0-53.0) % Plt Count 146 L (150-450) k/uL Neutrophils # 9.9 H (1.3-7.7) k/uL Lymphocytes # 0.6 L (1.0-4.8) k/uL ABG pH 7.47 H (7.35-7.45) ABG HCO3 29 H (21-25) mmol/L ABG Total CO2 30 H (19-24) mmol/L ABG O2 Saturation 98.9 H (94-97) % Sodium (137-145) mmol/L Glucose (74-99) mg/dL POC Glucose (mg/dL) 163 H (70-110) mg/dL Calcium (8.4-10.2) mg/dL Total Bilirubin (0.2-1.3) mg/dL AST (17-59) U/L Total Protein (6.3-8.2) g/dL Albumin (3.5-5.0) g/dL 02/26/24 02/26/24 Range/Units 10:36 11:24 WBC (3.8-10.6) k/uL RBC (4.30-5.90) m/uL Hgb (13.0-17.5) gm/dL Hct (39.0-53.0) % Plt Count (150-450) k/uL Neutrophils # (1.3-7.7) k/uL Lymphocytes # (1.0-4.8) k/uL ABG pH 7.48 H (7.35-7.45) ABG HCO3 28 H (21-25) mmol/L ABG Total CO2 29 H (19-24) mmol/L ABG O2 Saturation 98.4 H (94-97) % Sodium (137-145) mmol/L Glucose (74-99) mg/dL POC Glucose (mg/dL) 154 H (70-110) mg/dL Calcium (8.4-10.2) mg/dL Total Bilirubin (0.2-1.3) mg/dL AST (17-59) U/L Total Protein (6.3-8.2) g/dL Albumin (3.5-5.0) g/dL Microbiology - Last 24 Hours (Table) 02/24/24 15:24 Urine Culture - Final Urine,Voided 02/23/24 12:10 Blood Culture Gram Stain - Final Blood Blood Culture - Final Enterococcus faecium VRE Molecular ID 02/23/24 11:40 Blood Culture - Preliminary Blood Assessment and Plan (1) Sepsis Current Visit: Yes Status: Acute Code(s): A41.9 - SEPSIS, UNSPECIFIED ORGANISM SNOMED Code(s): 15161173 (2) Cholecystitis Current Visit: Yes Status: Acute Code(s): K81.9 - CHOLECYSTITIS, UNSPECIFIED SNOMED Code(s): 88300311 (3) VRE bacteremia Current Visit: Yes Status: Acute Code(s): R78.81 - BACTEREMIA; B95.2 - ENTEROCOCCUS THE CAUSE OF DISEASES CLASSIFIED ELSEWHERE; Z16.21 - RESISTANCE TO VANCOMYCIN SNOMED Code(s): 8803603725 (4) Allergy to cephalosporin Current Visit: Yes Status: Acute Code(s): Z88.1 - ALLERGY STATUS TO OTHER ANTIBIOTIC AGENTS SNOMED Code(s): 351933395 Plan: [facility] with sepsis in this patient who did have fever elevated white count source is acute cholecystitis usually associated with a gram-negative bacteria and also secondary to Enterococcus 2-VRE bacteremia source could be acute gastritis 3-blood culture has been repeated and currently pending 4-cephalexin allergy however the patient tolerated Zosyn during this admission without any problem 5-patient currently being treated with the daptomycin and Zosyn and continue supportive care Dictation was produced using [employer] dictation software. please excuse any grammatical, word or spelling errors. Time with Patient: Less than 30
--- NOTE | 2024-02-26 12:48 | P.PN ---
Subjective Progress Note Date: 02/26/24 Matthieu Baird is a 68-year-old male with a history of Lewy body dementia, Parkinsons disease, CVA, type 2 diabetes, hypertension and hyperlipidemia. He came into the emergency department with a chief complaint of chest pain. EKG showed normal sinus rhythm with sinus arrhythmia and a right bundle branch block. Chest x-ray found no acute significant findings. Chest CT shows unremarkable findings. Labs showed WBC 14.7, troponin less than 0.12, AST 224, ALT 20, glucose 179, D-dimer 1.93, and proBNP 291. Patient was admitted for further investigation. Gallbladder ultrasound was ordered and found to have acute cholecystitis with distended gallbladder, wall thickening and pericholecystic fluid and sludge. Surgical consult was made and patient was sent to the OR for lap cholecystectomy on 02/24/2024. Converted procedure to open cholecystectomy due to significant adhesions seen. Patient was given a total of 1.5 L of crystalloid fluid, 1 unit of packed RBC and 1000 cc of albumin. Blood cutlures grew Enterococcus, likely VRE. ID was consulted and is following patient. Patient was taken to the ICU for hemodynamic instability and recovery. 02/25/24 No significant events over night. Patient is post-operation day 1. BRADLEY drain shows minimal output. Still on NPO. He remains intubated but comfortable on the mechanical ventilator with minimal support. He still does not follow commands but grimaces to pain. Assisted-control mode at a rate of 60, Tidal volume 400, FiO2 40%, PEEP 5. ABG ph 7.41 CO2 42 O2 155 HCO3 26. He is afebrile and hemodynamically stable at this time. Labs show WBC 12.2, hemoglobin 9.8, platelet count of 201. Chem labs show BUN 22, creatinine 0.9, AST 196. ALT 139, ALP 115. Cultures grew Enterococcus. Patient still on empiric bacterial coverage with Zosyn and Daptomycin. 02/26/24 Patient is post-operation day 2. BRADLEY drain show serosanguinous output 20-50mL. Seen today not in acute distress and comfortable on vent settings AC mode tidal volume 400 RR 22 FiO2 35% PEEP 7. ABG results pH 7.47 CO2 40 O2 96 HCO3 29. Responsive to pain, intermittent alertness. liver function tests trending downward AST 2.1 ALT 4 ALP 98 albumin 2.3. CXR no significant changes. Patient had intermittent episodes of pain around 12am. Given Dilaudid 1mg. Patie nt then had intermittent episodes of hypotenstion 80-90s/40s. Patient given levophed 0.6 and returned to baseline pressures of 120s/60s at around 1am. CBC showed normal hemoglobin 8.4 hematocrit 24.8 WBC 11.2 platelet count 146. Afebril and hemodynamically stable at this time. Objective - Vital Signs Vital signs: Vital Signs Temp 98.8 F 02/26/24 08:00 Pulse 87 02/26/24 09:00 Resp 22 02/26/24 09:00 BP 113/61 02/26/24 09:00 Pulse Ox 100 02/26/24 09:00 FiO2 30 02/26/24 09:22 Intake & Output 02/25/24 02/26/24 02/26/24 18:59 06:59 18:59 Intake Total 1017.110 0716.177 256 Output Total 730 520 60 Balance 0037.946 8791.177 196 Weight 92.3 kg Intake: IV 1536 1636 256 [place] 36 36 6 Lactated Ringers 1,000 ml 1500 1500 250 @ 125 mls/hr IV .Q8H [facility] Rx#:[id number] Piperacillin-Tazobactam 3 100 .375 gm In Sodium Chloride 0.9% 100 ml @ 25 mls/hr IVPB Q8HR [facility] Rx# :[id number] Intake, IV Titration 309.455 61.177 Amount DAPTOmycin 500 mg In 50 Sodium Chloride 0.9% 50 ml @ 100 mls/hr IVPB Q24HR [facility] Rx#:[id number] Norepinephrine 4 mg In 3.629 61.177 Sodium Chloride 0.9% 250 ml @ 0.03 MCG/KG/MIN 11. 665 mls/hr IV .[id number] [facility] Rx#:[id number] Piperacillin-Tazobactam 3 200 .375 gm In Sodium Chloride 0.9% 100 ml @ 25 mls/hr IVPB Q8HR [facility] Rx# :[id number] propofoL 1,000 mg In 55.826 Empty Bag 1 bag @ 15 MCG/ KG/MIN 9.185 mls/hr IV . [id number] [facility] Rx#:[id number] Other 110 Output: Gastric Drainage 300 100 Drainage 30 70 Right Abdomen 30 70 Urine 400 350 60 Other: Voiding Method Indwelling Catheter Indwelling Catheter Indwelling Catheter ABP, PAP, CO, CI - Last Documented Arterial Blood Pressure 128/51 - Constitutional General appearance: Present: no acute distress - EENT Eyes: Present: anicteric sclerae, PERRLA, poor dentition, normal appearance ENT: Present: NA/AT - Neck Details: supple, no lesions or trauma, ROM cannot be assessed Carotids: bilateral: upstroke normal, bruit absent Thyroid: bilateral: normal size - Respiratory Respiratory: bilateral: CTA - Cardiovascular Rhythm: regular Heart sounds: normal: S1, S2 - Gastrointestinal Gastrointestinal Comment(s): surgical site clean and dry, no exudations or erythema General gastrointestinal: Present: decreased bowel sounds, soft - Integumentary Integumentary: Present: normal, normal turgor - Neurologic Neurologic Comment(s): responsive to pain, intermittent arousable - Musculoskeletal Musculoskeletal Comment(s): cannot b assessed - Labs CBC & Chem 7: 02/26/24 03:58 02/26/24 03:58 Labs: Abnormal Lab Results - Last 24 Hours (Table) 02/25/24 02/25/24 02/25/24 Range/Units 11:40 18:09 22:57 WBC (3.8-10.6) k/uL RBC (4.30-5.90) m/uL Hgb (13.0-17.5) gm/dL Hct (39.0-53.0) % Plt Count (150-450) k/uL Neutrophils # (1.3-7.7) k/uL Lymphocytes # (1.0-4.8) k/uL ABG pH (7.35-7.45) ABG HCO3 (21-25) mmol/L ABG Total CO2 (19-24) mmol/L ABG O2 Saturation (94-97) % Sodium (137-145) mmol/L Glucose (74-99) mg/dL POC Glucose (mg/dL) 139 H 150 H 167 H (70-110) mg/dL Calcium (8.4-10.2) mg/dL Total Bilirubin (0.2-1.3) mg/dL AST (17-59) U/L Total Protein (6.3-8.2) g/dL Albumin (3.5-5.0) g/dL 02/26/24 02/26/24 02/26/24 Range/Units 03:58 03:58 04:06 WBC 11.2 H (3.8-10.6) k/uL RBC 2.87 L (4.30-5.90) m/uL Hgb 8.4 L (13.0-17.5) gm/dL Hct 24.8 L (39.0-53.0) % Plt Count 146 L (150-450) k/uL Neutrophils # 9.9 H (1.3-7.7) k/uL Lymphocytes # 0.6 L (1.0-4.8) k/uL ABG pH (7.35-7.45) ABG HCO3 (21-25) mmol/L ABG Total CO2 (19-24) mmol/L ABG O2 Saturation (94-97) % Sodium 136 L (137-145) mmol/L Glucose 135 H (74-99) mg/dL POC Glucose (mg/dL) 163 H (70-110) mg/dL Calcium 7.5 L (8.4-10.2) mg/dL Total Bilirubin 2.1 H (0.2-1.3) mg/dL AST 84 H (17-59) U/L Total Protein 4.4 L (6.3-8.2) g/dL Albumin 2.3 L (3.5-5.0) g/dL 02/26/24 Range/Units 06:31 WBC (3.8-10.6) k/uL RBC (4.30-5.90) m/uL Hgb (13.0-17.5) gm/dL Hct (39.0-53.0) % Plt Count (150-450) k/uL Neutrophils # (1.3-7.7) k/uL Lymphocytes # (1.0-4.8) k/uL ABG pH 7.47 H (7.35-7.45) ABG HCO3 29 H (21-25) mmol/L ABG Total CO2 30 H (19-24) mmol/L ABG O2 Saturation 98.9 H (94-97) % Sodium (137-145) mmol/L Glucose (74-99) mg/dL POC Glucose (mg/dL) (70-110) mg/dL Calcium (8.4-10.2) mg/dL Total Bilirubin (0.2-1.3) mg/dL AST (17-59) U/L Total Protein (6.3-8.2) g/dL Albumin (3.5-5.0) g/dL Microbiology - Last 24 Hours (Table) 02/23/24 12:10 Blood Culture Gram Stain - Final Blood Blood Culture - Final Enterococcus faecium VRE Molecular ID 02/23/24 11:40 Blood Culture - Preliminary Blood - Imaging and Cardiology Chest x-ray: report reviewed Assessment and Plan Assessment: Acute cholecystitis and the patient underwent an open cholecystectomy. Patient is post-operation day 2. BRADLEY drain output is minimal. Not on sedation. Not on hemodynamic support. On IV lactate ringer 125ml/h Acute enterococcal septicemia secondary to cholecystitis. Blood cultures grew Enterococcus faecium, likely VRE. Currently on Zosyn and Vancomycin. Acute respiratory failure post cholecystectomy. Patient Was kept intubated for surgery due to ongoing comorbidities and hemodynamic instability and blood loss. Oxygenation is stable for now. Mechanical ventilation at pressure control spontaneous breaths mode at a rate of 16, Tidal volume 400 FiO2 30%, Pressure support 7, PEEP 5. Lewy body dementia with Parkinson disease at baseline Previous history of CVA Hyperglycemia Hyperlipidemia History of hypertension Plan: Continue to monitor in ICU Monitor and assess mental status Maintain intubation and mechanical ventilation due to mental status NPO for now Continue IV fluids of Lactate ringers 125cc/hr Continue Zosyn and Daptomycin Hold Propofol Continue to monitor blood pressure. Levophed PRN GI prophylaxis (Protonix) DVT Prophylaxis (Lovenox) Monitor BRADLEY drain output Stop antihypertensive medications Prognosis is guarded. Goal of extubation depending on mental status progress Time with Patient: Greater than 30
--- NOTE | 2024-02-26 12:58 | P.PN ---
Subjective Progress Note Date: 02/26/24 Hospital Course: Patient is a very pleasant 68-year-old male with a past medical history of hyp ertension, hyperlipidemia, CVA, insulin-dependent diabetes mellitus, Lewy body dementia, Parkinson's disease, and obstructive sleep apnea. He presented to the emergency department 02/22/2024 with a chief complaint of chest pain. Altered facility, patient evaluation emergency department. Vital signs upon arrival show blood pressure 138/79, heart rate 90, respiratory rate 19, temperature 98.4 F, and SpO2 98% on room air. EKG showing normal sinus rhythm at 91 bpm with right bundle branch block. Chest x-ray completed negative for acute cardiopulmonary process. Labs completed and reviewed. CBC showing leukocytosis with WBC count of 14.7 otherwise normal findings. Coagulation profile showing elevated PT of 12.9, INR of 1.2, and D-dimer of 1.93. BMP unremarkable with exception of mild hyperglycemia with glucose of 179. Liver profile showing hyperbilirubinemia with elevated transaminases with total bili of 2.2, AST of 224, and alkaline phosphatase of 233. Troponin was negative at less than 0.012. CTA chest completed negative for PE. Patient was admitted under our services with consultation to cardiology. Gallbladder ultrasound was ordered and results reviewed. Radiologist reporting findings concerning for acute cholecystitis with distended gallbladder, wall thickening with pericholecystic fluid and tumefactive sludge. Consult placed to general surgeon. Patient underwent cholecystectomy. Procedure complicated by significant blood loss. Patient was subsequently moved to medical ICU for further recovery. Blood cultures 1 out of 2 growing Enterococcus, likely VRE. ID also following. Patient currently in medical ICU. Subjective: Seen and examined at bedside. No acute events overnight. Has been off of sedation for almost 24 hours. Follows some commands. Remains intubated. No longer requiring any pressors. Adequate urine output. No further bleeding Pertinent positives and negatives as discussed above, a complete review of systems was performed and all other systems are negative. Vitals Signs Reviewed. General: Intubated Derm: Warm, dry Head: Atraumatic, normocephalic, symmetric Eyes: Anicteric sclera Mouth: No lip lesion, mucus membranes moist Cardiovascular: S1S2 reg, no murmur Lungs: CTA bilateral, no rhonchi, no rales, no accessory muscle use, intubated Abdominal: Soft, abdominal binder in place, BRADLEY drain in place Ext: No gross muscle atrophy, no edema, no contractures Neuro: Spontaneously opening eyes, follows some commands Psych: Unable to assess Data Reviewed Today: Pertinent Labs: WBC 11.2, hemoglobin 8.4, platelet 146, pH 7.47, pCO2 40, sodium 136, creatinine 0.87, total bili 2.1, AST 84, ALT 32, ALP 98, blood sugars range between 1 35-1 63 Imaging: Chest x-ray independently interpreted, shows underinflated lungs, no o pacities Assessment and Plan: Active: Acute cholecystitis status postcholecystectomy VRE bacteremia Leukocytosis, reactive Acute blood loss anemia, intraoperatively status post 2 units of PRBCs, and 1 unit of platelets Hemorrhagic shock, resolved Ventilator dependent respiratory failure Transaminitis Hypomagnesemia -Hemoglobin stable -ID note reviewed patient currently on IV daptomycin 500 mg every 24 hours, IV Zosyn 3.375 g every 8 hours -Pulmonology note reviewed, continue to hold sedation, possible extubation today -No longer requiring any pressors -Surgery following -Plavix on hold, continued on aspirin -Magnesium replacement -Continue lactated Ringer at 125 cc an hour Insulin-dependent diabetes -Sliding scale insulin, every 6 hours, monitor for hypoglycemia Chronic: Lewy body dementia, Parkinson's disease Depression History of CVA History of hypertension Dyslipidemia RONNELL DVT ppx: Lovenox Code status: Full code Anticipated discharge place: Pending clinical course Anticipated discharge time: Pending clinical course Objective - Vital Signs Vital signs: Vital Signs Temp 99.8 F H 02/26/24 12:00 Pulse 93 02/26/24 12:00 Resp 19 02/26/24 12:00 BP 111/65 02/26/24 12:00 Pulse Ox 100 02/26/24 12:00 FiO2 30 02/26/24 12:00 Intake & Output 02/25/24 02/26/24 02/26/24 18:59 06:59 18:59 Intake Total 3445.165 0933.177 840 Output Total 730 520 160 Balance 4178.890 8448.177 680 Weight 92.3 kg Intake: IV 1536 1636 790 [place] 36 36 15 DAPTOmycin 500 mg In 50 Sodium Chloride 0.9% 50 ml @ 100 mls/hr IVPB Q24HR [facility] Rx#:[id number] Lactated Ringers 1,000 ml 1500 1500 625 @ 125 mls/hr IV .Q8H [facility] Rx#:[id number] Piperacillin-Tazobactam 3 100 .375 gm In Sodium Chloride 0.9% 100 ml @ 25 mls/hr IVPB Q8HR [facility] Rx# :[id number] Piperacillin-Tazobactam 3 100 .375 gm In Sodium Chloride 0.9% 100 ml @ 25 mls/hr IVPB Q8HR [facility] Rx# :[id number] Intake, IV Titration 309.455 61.177 Amount DAPTOmycin 500 mg In 50 Sodium Chloride 0.9% 50 ml @ 100 mls/hr IVPB Q24HR [facility] Rx#:[id number] Norepinephrine 4 mg In 3.629 61.177 Sodium Chloride 0.9% 250 ml @ 0.03 MCG/KG/MIN 11. 665 mls/hr IV .[id number] [facility] Rx#:[id number] Piperacillin-Tazobactam 3 200 .375 gm In Sodium Chloride 0.9% 100 ml @ 25 mls/hr IVPB Q8HR [facility] Rx# :[id number] propofoL 1,000 mg In 55.826 Empty Bag 1 bag @ 15 MCG/ KG/MIN 9.185 mls/hr IV . [id number] [facility] Rx#:[id number] Other 110 50 Output: Gastric Drainage 300 100 Drainage 30 70 Right Abdomen 30 70 Urine 400 350 160 Other: Voiding Method Indwelling Catheter Indwelling Catheter Indwelling Catheter ABP, PAP, CO, CI - Last Documented Arterial Blood Pressure 116/48 - Labs CBC & Chem 7: 02/26/24 03:58 02/26/24 03:58 Labs: Abnormal Lab Results - Last 24 Hours (Table) 02/25/24 02/25/24 02/26/24 Range/Units 18:09 22:57 03:58 WBC (3.8-10.6) k/uL RBC (4.30-5.90) m/uL Hgb (13.0-17.5) gm/dL Hct (39.0-53.0) % Plt Count (150-450) k/uL Neutrophils # (1.3-7.7) k/uL Lymphocytes # (1.0-4.8) k/uL ABG pH (7.35-7.45) ABG HCO3 (21-25) mmol/L ABG Total CO2 (19-24) mmol/L ABG O2 Saturation (94-97) % Sodium 136 L (137-145) mmol/L Glucose 135 H (74-99) mg/dL POC Glucose (mg/dL) 150 H 167 H (70-110) mg/dL Calcium 7.5 L (8.4-10.2) mg/dL Total Bilirubin 2.1 H (0.2-1.3) mg/dL AST 84 H (17-59) U/L Total Protein 4.4 L (6.3-8.2) g/dL Albumin 2.3 L (3.5-5.0) g/dL 02/26/24 02/26/24 02/26/24 Range/Units 03:58 04:06 06:31 WBC 11.2 H (3.8-10.6) k/uL RBC 2.87 L (4.30-5.90) m/uL Hgb 8.4 L (13.0-17.5) gm/dL Hct 24.8 L (39.0-53.0) % Plt Count 146 L (150-450) k/uL Neutrophils # 9.9 H (1.3-7.7) k/uL Lymphocytes # 0.6 L (1.0-4.8) k/uL ABG pH 7.47 H (7.35-7.45) ABG HCO3 29 H (21-25) mmol/L ABG Total CO2 30 H (19-24) mmol/L ABG O2 Saturation 98.9 H (94-97) % Sodium (137-145) mmol/L Glucose (74-99) mg/dL POC Glucose (mg/dL) 163 H (70-110) mg/dL Calcium (8.4-10.2) mg/dL Total Bilirubin (0.2-1.3) mg/dL AST (17-59) U/L Total Protein (6.3-8.2) g/dL Albumin (3.5-5.0) g/dL 02/26/24 02/26/24 Range/Units 10:36 11:24 WBC (3.8-10.6) k/uL RBC (4.30-5.90) m/uL Hgb (13.0-17.5) gm/dL Hct (39.0-53.0) % Plt Count (150-450) k/uL Neutrophils # (1.3-7.7) k/uL Lymphocytes # (1.0-4.8) k/uL ABG pH 7.48 H (7.35-7.45) ABG HCO3 28 H (21-25) mmol/L ABG Total CO2 29 H (19-24) mmol/L ABG O2 Saturation 98.4 H (94-97) % Sodium (137-145) mmol/L Glucose (74-99) mg/dL POC Glucose (mg/dL) 154 H (70-110) mg/dL Calcium (8.4-10.2) mg/dL Total Bilirubin (0.2-1.3) mg/dL AST (17-59) U/L Total Protein (6.3-8.2) g/dL Albumin (3.5-5.0) g/dL Microbiology - Last 24 Hours (Table) 02/24/24 15:24 Urine Culture - Final Urine,Voided 02/23/24 12:10 Blood Culture Gram Stain - Final Blood Blood Culture - Final Enterococcus faecium VRE Molecular ID 02/23/24 11:40 Blood Culture - Preliminary Blood
--- NOTE | 2024-02-26 14:02 | P.PN ---
Subjective Progress Note Date: 02/26/24 This is a 68-year-old male patient who is currently intubated on mechanical ventilator. The patient was taken to the operating room for acute cholecystitis and bacteremia. The patient was found to have severe acute cholecystitis and the patient was initially supposed to have a laparoscopic cholecystectomy and this was converted to an open procedure. The patient was found to have significant adhesions. The gallbladder was taken out. The patient encountered bleeding and estimated blood loss was in the order of 1000 cc. The patient accordingly was given a total of 1.5 L of crystalloid in the operating room, 1 unit of packed RBC, a total of 1000 cc of albumin. Output from the BRADLEY drain is minimal at this point in time. The patient is currently on propofol running at 15 mcg/kg/min. He is on assist-control mode of mechanical ventilation at a rate of 16, tidal volume of 400, FiO2 40% with a PEEP of 5. The blood pressure was soft in the ICU and the patient was given additional liter of lactated Ringer. Blood gas showed a pH of 7.38 with a pCO2 of 40 and pO2 of more than 420. FiO2 was dropped accordingly. Chest x-ray shows borderline heart size and some atelectatic change in the left midlung. The patient's blood culture showing Enterococcus faecium and based on that the patient was kept on a combination of Zosyn and daptomycin. No pressors for now. Note that the patient is known to have previous history of CVA. He has insulin-dependent diabetes mellitus and hypertension hyperlipidemia and Lewy body dementia and Parkinson's disease. He has also history of obstructive sleep apnea. His gallbladder ultrasound that was done at the time of admission showed acute cholecystitis with distended gallbladder wall thickening and the CT of the chest that was done on 02/23/2024 showed no evidence of any pulmonary embolism. The lungs were essentially clear from any acute pulmonary filtration. On 02/25/2024, the patient remains intubated on the mechanical ventilator. No significant events overnight. The patient is postop day #1 following an open cholecystectomy. Output from the BRADLEY drain is minimal at this point in time. The patient is currently on propofol which is running at 20 mcg/kg/min. He remains on assist-control mode of mechanical ventilation at rate of 60, tidal volume of 450, FiO2 of 30% with a PEEP of 5. Blood gas showed a pH of 7.41 with a pCO2 of 42 and pO2 of 155. The patient was given a total of 2 units of packed RBC postop. He was also given a unit of platelets. No active bleeding. Remains on lactated Ringer at rate of 125 cc an hour. Remains NPO. No pressors for now and the norepinephrine has been discontinued. The white cell count of 12.2 with a hemoglobin 9.8 and a platelet count of 201. BUN is 22 with a creatinine 0.9 and his sodium level is 136. AST is 196, ALT is 139 with an alkaline phosphatase of 115. Cultures positive for Enterococcus faecium and the patient remains on a combination of Zosyn and daptomycin. Afebrile. H emodynamically stable at this point in time. 02/26/2024, the patient is quite lethargic, sleepy, rigid, slightly responsive to verbal stimulation. He grimaces to painful stimulation. To my understanding, the patient has significant Lewy body dementia with chronic rigidity and cognitive impairment. The patient remains on the mechanical ventilator. Off sedation. Currently on assist-control mode with rate of 16, tidal volume of 400 and FiO2 of 30% with a PEEP of 5. The blood gas from today shows a pH of 7.48 with a pCO2 of 38 and pO2 of 87. Chest x-ray from today shows patchy opacity in the right lung base/atelectasis. Orogastric and orotracheal tube are both in place. The patient is hemodynamically stable. The patient is afebrile. The patient on lactated Ringer at rate of 125 cc an hour. BRADLEY drain output is serous. The LFTs are essentially within normal limits. Sodium is at 136, BUN is 20 with a creatinine of 0.8 and a potassium levels of 3.8. The white cell count 11.2 with a hemoglobin 8.4 and a platelet count of 146. Remains on Zosyn and daptomycin. No other significant events overnight. Objective - Vital Signs Vital signs: Vital Signs Temp 98.8 F 02/26/24 08:00 Pulse 82 02/26/24 08:00 Resp 16 02/26/24 08:00 BP 120/74 02/26/24 08:00 Pulse Ox 100 02/26/24 08:00 FiO2 30 02/26/24 08:00 Intake & Output 02/25/24 02/26/24 02/26/24 18:59 06:59 18:59 Intake Total 6153.377 7894.177 256 Output Total 730 520 60 Balance 1082.120 6294.177 196 Weight 92.3 kg Intake: IV 1536 1636 256 [place] 36 36 6 Lactated Ringers 1,000 ml 1500 1500 250 @ 125 mls/hr IV .Q8H [facility] Rx#:[id number] Piperacillin-Tazobactam 3 100 .375 gm In Sodium Chloride 0.9% 100 ml @ 25 mls/hr IVPB Q8HR [facility] Rx# :[id number] Intake, IV Titration 309.455 61.177 Amount DAPTOmycin 500 mg In 50 Sodium Chloride 0.9% 50 ml @ 100 mls/hr IVPB Q24HR [facility] Rx#:[id number] Norepinephrine 4 mg In 3.629 61.177 Sodium Chloride 0.9% 250 ml @ 0.03 MCG/KG/MIN 11. 665 mls/hr IV .[id number] [facility] Rx#:[id number] Piperacillin-Tazobactam 3 200 .375 gm In Sodium Chloride 0.9% 100 ml @ 25 mls/hr IVPB Q8HR [facility] Rx# :[id number] propofoL 1,000 mg In 55.826 Empty Bag 1 bag @ 15 MCG/ KG/MIN 9.185 mls/hr IV . [id number] [facility] Rx#:[id number] Other 110 Output: Gastric Drainage 300 100 Drainage 30 70 Right Abdomen 30 70 Urine 400 350 60 Other: Voiding Method Indwelling Catheter Indwelling Catheter ABP, PAP, CO, CI - Last Documented Arterial Blood Pressure 121/50 - Exam Calm and comfortable off propofol, intubated on mechanical ventilator, suggest on mechanical ventilator for now. Orogastric and orotracheal tube are both in place. Head exam was generally normal. There was no scleral icterus or corneal arcus. Mucous membranes were moist. Neck was supple and without jugular venous distension, thyromegaly, or carotid bruits. Carotids were easily palpable bilaterally. There was no adenopathy. Lung sounds are diminished bilaterally otherwise clear. Cardiac exam revealed the PMI to be normally situated and sized. The rhythm was regular and no extrasystoles were noted during several minutes of auscultation. The first and second heart sounds were normal and physiologic splitting of the second heart sound was noted. There were no murmurs, rubs, clicks, or gallops. Abdominal exam revealed normal bowel sounds. The abdomen was soft, non-tender, and without masses, organomegaly, or appreciable enlargement of the abdominal aorta. Surgical wound over the right upper quadrant is dry clean and intact and the patient has a BRADLEY drain in place. Examination of the extremities revealed easily palpable radial, femoral and pedal pulses. There was no cyanosis, clubbing or edema. Examination of the skin revealed no evidence of significant rashes, suspicious appearing nevi or other concerning lesions. Neurologically the patient is sedated. Grimaces to painful stimulation. Does not follow commands. Extensive rigidity in all 4 extremities. - Labs CBC & Chem 7: 02/26/24 03:58 02/26/24 03:58 Labs: Abnormal Lab Results - Last 24 Hours (Table) 02/25/24 02/25/24 02/25/24 Range/Units 11:40 18:09 22:57 WBC (3.8-10.6) k/uL RBC (4.30-5.90) m/uL Hgb (13.0-17.5) gm/dL Hct (39.0-53.0) % Plt Count (150-450) k/uL Neutrophils # (1.3-7.7) k/uL Lymphocytes # (1.0-4.8) k/uL ABG pH (7.35-7.45) ABG HCO3 (21-25) mmol/L ABG Total CO2 (19-24) mmol/L ABG O2 Saturation (94-97) % Sodium (137-145) mmol/L Glucose (74-99) mg/dL POC Glucose (mg/dL) 139 H 150 H 167 H (70-110) mg/dL Calcium (8.4-10.2) mg/dL Total Bilirubin (0.2-1.3) mg/dL AST (17-59) U/L Total Protein (6.3-8.2) g/dL Albumin (3.5-5.0) g/dL 02/26/24 02/26/24 02/26/24 Range/Units 03:58 03:58 04:06 WBC 11.2 H (3.8-10.6) k/uL RBC 2.87 L (4.30-5.90) m/uL Hgb 8.4 L (13.0-17.5) gm/dL Hct 24.8 L (39.0-53.0) % Plt Count 146 L (150-450) k/uL Neutrophils # 9.9 H (1.3-7.7) k/uL Lymphocytes # 0.6 L (1.0-4.8) k/uL ABG pH (7.35-7.45) ABG HCO3 (21-25) mmol/L ABG Total CO2 (19-24) mmol/L ABG O2 Saturation (94-97) % Sodium 136 L (137-145) mmol/L Glucose 135 H (74-99) mg/dL POC Glucose (mg/dL) 163 H (70-110) mg/dL Calcium 7.5 L (8.4-10.2) mg/dL Total Bilirubin 2.1 H (0.2-1.3) mg/dL AST 84 H (17-59) U/L Total Protein 4.4 L (6.3-8.2) g/dL Albumin 2.3 L (3.5-5.0) g/dL 02/26/24 Range/Units 06:31 WBC (3.8-10.6) k/uL RBC (4.30-5.90) m/uL Hgb (13.0-17.5) gm/dL Hct (39.0-53.0) % Plt Count (150-450) k/uL Neutrophils # (1.3-7.7) k/uL Lymphocytes # (1.0-4.8) k/uL ABG pH 7.47 H (7.35-7.45) ABG HCO3 29 H (21-25) mmol/L ABG Total CO2 30 H (19-24) mmol/L ABG O2 Saturation 98.9 H (94-97) % Sodium (137-145) mmol/L Glucose (74-99) mg/dL POC Glucose (mg/dL) (70-110) mg/dL Calcium (8.4-10.2) mg/dL Total Bilirubin (0.2-1.3) mg/dL AST (17-59) U/L Total Protein (6.3-8.2) g/dL Albumin (3.5-5.0) g/dL Microbiology - Last 24 Hours (Table) 02/23/24 12:10 Blood Culture Gram Stain - Final Blood Blood Culture - Final Enterococcus faecium VRE Molecular ID 02/23/24 11:40 Blood Culture - Preliminary Blood Assessment and Plan Plan: Acute cholecystitis and the patient underwent an open cholecystectomy. The patient is currently postop day #2. Significant blood loss intraoperatively and the patient was sedated with fluids, colloids/albumin and received a total of 2 units of of packed RBC and a unit of platelets. The patient currently is on no pressors. The BRADLEY output is minimal Acute enterococcal septicemia secondary to cholecystitis and the patient is currently on a combination of daptomycin and Zosyn. The patient has Enterococcus faecium in the blood cultures, likely VRE Acute respiratory failure post Gallbladder Surgery. Patient Was kept intubated for surgery due to ongoing comorbidities and hemodynamic instability and blood loss. Oxygenation is stable for now chest x-ray findings are stable. The patient has no respiratory secretions. Previous history of CVA History of hypertension Hyperlipidemia Lewy body dementia with Parkinson disease at baseline with significant motor rigidity and cognitive impairment. Plan The patient is currently on propofol Unable to perform full weaning parameters Switch this patient to a PSV of 7 and a PEEP of 5 and repeat a blood gas in an hour. If favorable, the patient will be extubated Continue IV fluids and the patient is currently on lactated Ringer at rate of 125 cc an hour Continue Zosyn and daptomycin for now Monitor the blood pressure utilize Levophed as needed, currently off pressors Monitor the output from the BRADLEY drain, output is minimal Stop antihypertensive medications IV Protonix Lovenox for DVT prophylaxis Critical care evaluation was done more than 30 minutes. Working progress, possible extubation depending on his progress.
[2024-02-26 18:09] LABS: Glucose,Whole Blood 127 mg/dL (70-110)
[2024-02-26 23:10] LABS: Glucose,Whole Blood 135 mg/dL (70-110)
--- NOTE | 2024-02-26 23:18 | P.PN ---
Subjective Progress Note Date: 02/26/24 CHIEF COMPLAINT: Cholecystitis HISTORY OF PRESENT ILLNESS: The patient is a 68-year-old male admitted with atypical chest pain and findings of acute cholecystitis. He is status post laparoscopic converted to open 02/24/2024. He is still in intensive care unit. He awakens to voice command. No new complaints. ROS: No reports of nausea and vomiting. No bowel movements. No fevers or chills. PHYSICAL EXAM: VITAL SIGNS: Reviewed CONSTITUTIONAL: Well developed and in no acute distress. EYES: Conjuctivae without sclera icterus. Extraocular movements grossly intact. HEAD, EARS, NOSE, THROAT: Moist buccal mucosa. Head is atraumatic, normocephalic. Hears conversational speech. No nasal drainage. Poor dentition. RESPIRATORY: Non-labored respirations and equal bilateral excursions. CARDIOVASCULAR: Palpable 2+ radial pulses. ABDOMEN: Upper abdominal dressing intact. BRADLEY sanguinous without bile. BRADLEY output 40 to 50 cc per every 8 hour shift. MUSCULOSKELETAL: No gross deformity of the lower extremities noted. No clubbing. No cyanosis. SKIN: Good skin turgor. Well perfused. NEUROLOGIC: No focal or lateralizing signs. PSYCH: Depressed, sedated. CLINICAL LABS: Reviewed. Hemoglobin down 9.8-8.4, anemia. WBC down 12.2-11.2, leukocytosis. LFTs trending downward. ASSESSMENT: 1. Acute cholecystitis 2. Acute respiratory failure status post cholecystectomy 3. Parkinson's disease 4. Anemia PLAN: 1. Continue to monitor output from BRADLEY drain for acute blood loss anemia. 2. Monitor hemoglobin: LFTs 3. Wean vent as tolerated. 4. Antibiotic management per infectious disease. 5. May remove orogastric tube upon extubation. Objective - Vital Signs Vital signs: Vital Signs Temp 100.7 F H 02/26/24 20:00 Pulse 94 02/26/24 23:00 Resp 23 02/26/24 23:00 BP 124/67 02/26/24 23:00 Pulse Ox 96 02/26/24 23:00 FiO2 30 02/26/24 15:10 Intake & Output 02/26/24 02/26/24 02/27/24 06:59 18:59 06:59 Intake Total 3930.944 4042 640 Output Total 520 405 260 Balance 2737.561 6341 380 Weight 92.3 kg Intake: IV 1636 1686 640 [place] 36 36 15 DAPTOmycin 500 mg In 50 Sodium Chloride 0.9% 50 ml @ 100 mls/hr IVPB Q24HR [facility] Rx#:[id number] Lactated Ringers 1,000 ml 1500 1500 625 @ 125 mls/hr IV .Q8H [facility] Rx#:[id number] Piperacillin-Tazobactam 3 100 .375 gm In Sodium Chloride 0.9% 100 ml @ 25 mls/hr IVPB Q8HR [facility] Rx# :[id number] Piperacillin-Tazobactam 3 100 .375 gm In Sodium Chloride 0.9% 100 ml @ 25 mls/hr IVPB Q8HR [facility] Rx# :[id number] Intake, IV Titration 61.177 Amount Norepinephrine 4 mg In 61.177 Sodium Chloride 0.9% 250 ml @ 0.03 MCG/KG/MIN 11. 665 mls/hr IV .[id number] [facility] Rx#:[id number] Other 100 Output: Gastric Drainage 100 Drainage 70 40 110 Right Abdomen 70 40 110 Urine 350 365 150 Other: Voiding Method Indwelling Catheter Indwelling Catheter Indwelling Catheter ABP, PAP, CO, CI - Last Documented Arterial Blood Pressure 125/48 - Labs CBC & Chem 7: 02/26/24 03:58 02/26/24 03:58 Labs: Abnormal Lab Results - Last 24 Hours (Table) 02/26/24 02/26/24 02/26/24 Range/Units 03:58 03:58 04:06 WBC 11.2 H (3.8-10.6) k/uL RBC 2.87 L (4.30-5.90) m/uL Hgb 8.4 L (13.0-17.5) gm/dL Hct 24.8 L (39.0-53.0) % Plt Count 146 L (150-450) k/uL Neutrophils # 9.9 H (1.3-7.7) k/uL Lymphocytes # 0.6 L (1.0-4.8) k/uL ABG pH (7.35-7.45) ABG HCO3 (21-25) mmol/L ABG Total CO2 (19-24) mmol/L ABG O2 Saturation (94-97) % Sodium 136 L (137-145) mmol/L Glucose 135 H (74-99) mg/dL POC Glucose (mg/dL) 163 H (70-110) mg/dL Calcium 7.5 L (8.4-10.2) mg/dL Total Bilirubin 2.1 H (0.2-1.3) mg/dL AST 84 H (17-59) U/L Total Protein 4.4 L (6.3-8.2) g/dL Albumin 2.3 L (3.5-5.0) g/dL 02/26/24 02/26/24 02/26/24 Range/Units 06:31 10:36 11:24 WBC (3.8-10.6) k/uL RBC (4.30-5.90) m/uL Hgb (13.0-17.5) gm/dL Hct (39.0-53.0) % Plt Count (150-450) k/uL Neutrophils # (1.3-7.7) k/uL Lymphocytes # (1.0-4.8) k/uL ABG pH 7.47 H 7.48 H (7.35-7.45) ABG HCO3 29 H 28 H (21-25) mmol/L ABG Total CO2 30 H 29 H (19-24) mmol/L ABG O2 Saturation 98.9 H 98.4 H (94-97) % Sodium (137-145) mmol/L Glucose (74-99) mg/dL POC Glucose (mg/dL) 154 H (70-110) mg/dL Calcium (8.4-10.2) mg/dL Total Bilirubin (0.2-1.3) mg/dL AST (17-59) U/L Total Protein (6.3-8.2) g/dL Albumin (3.5-5.0) g/dL 02/26/24 02/26/24 Range/Units 18:07 23:07 WBC (3.8-10.6) k/uL RBC (4.30-5.90) m/uL Hgb (13.0-17.5) gm/dL Hct (39.0-53.0) % Plt Count (150-450) k/uL Neutrophils # (1.3-7.7) k/uL Lymphocytes # (1.0-4.8) k/uL ABG pH (7.35-7.45) ABG HCO3 (21-25) mmol/L ABG Total CO2 (19-24) mmol/L ABG O2 Saturation (94-97) % Sodium (137-145) mmol/L Glucose (74-99) mg/dL POC Glucose (mg/dL) 127 H 135 H (70-110) mg/dL Calcium (8.4-10.2) mg/dL Total Bilirubin (0.2-1.3) mg/dL AST (17-59) U/L Total Protein (6.3-8.2) g/dL Albumin (3.5-5.0) g/dL Microbiology - Last 24 Hours (Table) 02/25/24 07:21 Blood Culture - Preliminary Blood 02/23/24 11:40 Blood Culture - Preliminary Blood 02/24/24 15:24 Urine Culture - Final Urine,Voided 02/23/24 12:10 Blood Culture Gram Stain - Final Blood Blood Culture - Final Enterococcus faecium VRE Molecular ID
[2024-02-27 03:17] LABS: Basophils % (A) 0 %; Eosinophils % (A) 0 %; HCT 21.8 % (39.0-53.0); HGB 7.3 gm/dL (13.0-17.5); Lymphocytes # (A) 0.5 k/uL (1.0-4.8); Lymphocytes % (A) 4 %; MCH 28.9 pg (25.0-35.0); MCHC 33.6 g/dL (31.0-37.0); MCV 86.2 fL (80.0-100.0); Mean Platelet Volume 8.8; Monocytes # (A) 0.7 k/uL (0-1.0); Monocytes % (A) 5 %; Neutrophils # (A) 11.9 k/uL (1.3-7.7); Neutrophils % (A) 90 %; Platelet Count 151 k/uL (150-450); RBC 2.52 m/uL (4.30-5.90); WBC 13.2 k/uL (3.8-10.6)
[2024-02-27 03:54] LABS: ALT 30 U/L (4-49); AST 46 U/L (17-59); African American GFR (CKD) >90 (>60 ml/min/1.73 sqM); Alkaline Phosphatase 81 U/L (38-126); Anion Gap 3 mmol/L; Blood Urea Nitrogen 17 mg/dL (9-20); Calcium 7.3 mg/dL (8.4-10.2); Carbon Dioxide 25 mmol/L (22-30); Chloride 107 mmol/L (98-107); Glucose 128 mg/dL (74-99); Magnesium 1.8 mg/dL (1.6-2.3); Non-African American GFR(CKD) >90 (>60 ml/min/1.73 sqM); Potassium 3.7 mmol/L (3.5-5.1); Sodium 135 mmol/L (137-145); Total Bilirubin 1.9 mg/dL (0.2-1.3)
[2024-02-27] MEDS: MAGNESIUM SULFATE-D5W PMX 1 GM in DEXTROSE/WATER 1 100ML.BAG IVPB ONE (04:38)
[2024-02-27] MEDS: POTASSIUM CHLORIDE 10 MEQ in WATER FOR INJECTION 1 100ML.BAG IVPB SCH (04:40)
[2024-02-27 04:53] LABS: Glucose,Whole Blood 141 mg/dL (70-110)
[2024-02-27 06:11] LABS: Glucose,Whole Blood 164 mg/dL (70-110)
--- NOTE | 2024-02-27 07:41 | XR ---
EXAM: XR chest 1V portable CLINICAL INDICATION:Male, 68 years old with history of Tube placement; [facility] COMPARISON: 02/26/2024 TECHNIQUE: Chest single view. FINDINGS: ET tube and NG tube appear to have been removed. Cardiomediastinal silhouette stable. Heart size upper normal. Lung volumes are again somewhat low. There is increased bandlike opacity in the right midlung zone an d hazy opacity in the mid to lower lung zones. Costophrenic angle is partially obscured. Left lung ap pears stable. No visualized pneumothorax. Osseous structures are unchanged. Postoperative changes in the right upper quadrant with gaseous bowel loops partially seen in the upper abdomen, could relate t o ileus. IMPRESSION: 1. Persistent low lung volumes. 2. Increasing opacities towards the right lung base could be due to atelectasis and/or infiltrate, w ith possible small effusion.
[2024-02-27 11:09] LABS: Glucose,Whole Blood 139 mg/dL (70-110)
--- NOTE | 2024-02-27 11:51 | P.PN ---
Subjective Progress Note Date: 02/27/24 This is a 68-year-old male patient who is currently intubated on mechanical ventilator. The patient was taken to the operating room for acute cholecystitis and bacteremia. The patient was found to have severe acute cholecystitis and the patient was initially supposed to have a laparoscopic cholecystectomy and this was converted to an open procedure. The patient was found to have significant adhesions. The gallbladder was taken out. The patient encountered bleeding and estimated blood loss was in the order of 1000 cc. The patient accordingly was given a total of 1.5 L of crystalloid in the operating room, 1 unit of packed RBC, a total of 1000 cc of albumin. Output from the BRADLEY drain is minimal at this point in time. The patient is currently on propofol running at 15 mcg/kg/min. He is on assist-control mode of mechanical ventilation at a rate of 16, tidal volume of 400, FiO2 40% with a PEEP of 5. The blood pressure was soft in the ICU and the patient was given additional liter of lactated Ringer. Blood gas showed a pH of 7.38 with a pCO2 of 40 and pO2 of more than 420. FiO2 was dropped accordingly. Chest x-ray shows borderline heart size and some atelectatic change in the left midlung. The patient's blood culture showing Enterococcus faecium and based on that the patient was kept on a combination of Zosyn and daptomycin. No pressors for now. Note that the patient is known to have previous history of CVA. He has insulin-dependent diabetes mellitus and hypertension hyperlipidemia and Lewy body dementia and Parkinson's disease. He has also history of obstructive sleep apnea. His gallbladder ultrasound that was done at the time of admission showed acute cholecystitis with distended gallbladder wall thickening and the CT of the chest that was done on 02/23/2024 showed no evidence of any pulmonary embolism. The lungs were essentially clear from any acute pulmonary filtration. On 02/25/2024, the patient remains intubated on the mechanical ventilator. No significant events overnight. The patient is postop day #1 following an open cholecystectomy. Output from the BRADLEY drain is minimal at this point in time. The patient is currently on propofol which is running at 20 mcg/kg/min. He remains on assist-control mode of mechanical ventilation at rate of 60, tidal volume of 450, FiO2 of 30% with a PEEP of 5. Blood gas showed a pH of 7.41 with a pCO2 of 42 and pO2 of 155. The patient was given a total of 2 units of packed RBC postop. He was also given a unit of platelets. No active bleeding. Remains on lactated Ringer at rate of 125 cc an hour. Remains NPO. No pressors for now and the norepinephrine has been discontinued. The white cell count of 12.2 with a hemoglobin 9.8 and a platelet count of 201. BUN is 22 with a creatinine 0.9 and his sodium level is 136. AST is 196, ALT is 139 with an alkaline phosphatase of 115. Cultures positive for Enterococcus faecium and the patient remains on a combination of Zosyn and daptomycin. Afebrile. H emodynamically stable at this point in time. 02/26/2024, the patient is quite lethargic, sleepy, rigid, slightly responsive to verbal stimulation. He grimaces to painful stimulation. To my understanding, the patient has significant Lewy body dementia with chronic rigidity and cognitive impairment. The patient remains on the mechanical ventilator. Off sedation. Currently on assist-control mode with rate of 16, tidal volume of 400 and FiO2 of 30% with a PEEP of 5. The blood gas from today shows a pH of 7.48 with a pCO2 of 38 and pO2 of 87. Chest x-ray from today shows patchy opacity in the right lung base/atelectasis. Orogastric and orotracheal tube are both in place. The patient is hemodynamically stable. The patient is afebrile. The patient on lactated Ringer at rate of 125 cc an hour. BRADLEY drain output is serous. The LFTs are essentially within normal limits. Sodium is at 136, BUN is 20 with a creatinine of 0.8 and a potassium levels of 3.8. The white cell count 11.2 with a hemoglobin 8.4 and a platelet count of 146. Remains on Zosyn and daptomycin. No other significant events overnight. 02/27/2024, the patient is extubated and the patient is currently on 2 L of oxygen by nasal cannula. Significant neurologic impairment and cognitive impairment and rigidity. Does not communicate. Does not follow any simple commands. Unable to swallow. Respiratory status is stable. Hemodynamically stable. Repeat chest x-ray was done today and the patient was found to have some right- sided atelectasis and small right-sided pleural effusion. Abdomen is nondistended. Surgical wound site is dry clean and intact. BRADLEY drain is in place. Output overnight was elevated and the patient produced approximately 490 cc over the past 8 hours and currently the output is down to 5 to 10 cc an hour. Output is somewhat bloody/serosanguineous. Remains on lactated Ringer at 125 cc an hour. No pressors. Remains on Zosyn and vancomycin. Hemoglobin is down to 7.3 with a white cell count of 13.2. Electrolytes are all within normal limits. Afebrile. Objective - Vital Signs Vital signs: Vital Signs Temp 100.5 F H 02/27/24 08:00 Pulse 90 02/27/24 08:00 Resp 18 02/27/24 08:00 BP 100/56 02/27/24 08:00 Pulse Ox 94 L 02/27/24 08:00 FiO2 30 02/26/24 15:10 Intake & Output 02/26/24 02/27/24 02/27/24 18:59 06:59 18:59 Intake Total 1786 2064 406 Output Total 405 665 70 Balance 1381 1399 336 Weight 93.3 kg Intake: IV 1686 4 406 [place] 36 39 6 DAPTOmycin 500 mg In 50 50 Sodium Chloride 0.9% 50 ml @ 100 mls/hr IVPB Q24HR [facility] Rx#:[id number] Lactated Ringers 1,000 ml 1500 1625 250 @ 125 mls/hr IV .Q8H [facility] Rx#:[id number] Magnesium Sulfate-D5w Pmx 100 1 gm In Dextrose/Water 1 100ml.bag @ 100 mls/hr IVPB ONCE ONE Rx#: [id number] Piperacillin-Tazobactam 3 100 .375 gm In Sodium Chloride 0.9% 100 ml @ 25 mls/hr IVPB Q8HR [facility] Rx# :[id number] Piperacillin-Tazobactam 3 100 100 .375 gm In Sodium Chloride 0.9% 100 ml @ 25 mls/hr IVPB Q8HR [facility] Rx# :[id number] Potassium Chloride 10 meq 200 In Water For Injection 1 100ml.bag @ 100 mls/hr IVPB Q1H [facility] Rx#: [id number] Other 100 Output: Drainage 40 290 15 Right Abdomen 40 290 15 Urine 365 375 55 Other: Voiding Method Indwelling Catheter Indwelling Catheter ABP, PAP, CO, CI - Last Documented Arterial Blood Pressure 108/45 - Exam Calm and comfortable extubated to 2 L of oxygen by nasal cannula Head exam was generally normal. There was no scleral icterus or corneal arcus. Mucous membranes were moist. Neck was supple and without jugular venous distension, thyromegaly, or carotid bruits. Carotids were easily palpable bilaterally. There was no adenopathy. Lung sounds are diminished bilaterally otherwise clear. Cardiac exam revealed the PMI to be normally situated and sized. The rhythm was regular and no extrasystoles were noted during several minutes of auscultation. The first and second heart sounds were normal and physiologic splitting of the second heart sound was noted. There were no murmurs, rubs, clicks, or gallops. Abdominal exam revealed normal bowel sounds. The abdomen was soft, non-tender, and without masses, organomegaly, or appreciable enlargement of the abdominal aorta. Surgical wound over the right upper quadrant is dry clean and intact and the patient has a BRADLEY drain in place. Examination of the extremities revealed easily palpable radial, femoral and pedal pulses. There was no cyanosis, clubbing or edema. Examination of the skin revealed no evidence of significant rashes, suspicious appearing nevi or other concerning lesions. Neurologically the patient is cognitively impaired, unable to communicate. He moans. Significant rigidity in all 4 extremities. Adequate motor and sensory assessment cannot be done. He is nonambulatory. - Labs CBC & Chem 7: 02/27/24 03:05 02/27/24 03:05 Labs: Abnormal Lab Results - Last 24 Hours (Table) 02/26/24 02/26/24 02/26/24 Range/Units 10:36 11:24 18:07 WBC (3.8-10.6) k/uL RBC (4.30-5.90) m/uL Hgb (13.0-17.5) gm/dL Hct (39.0-53.0) % Neutrophils # (1.3-7.7) k/uL Lymphocytes # (1.0-4.8) k/uL ABG pH 7.48 H (7.35-7.45) ABG HCO3 28 H (21-25) mmol/L ABG Total CO2 29 H (19-24) mmol/L ABG O2 Saturation 98.4 H (94-97) % Sodium (137-145) mmol/L Glucose (74-99) mg/dL POC Glucose (mg/dL) 154 H 127 H (70-110) mg/dL Calcium (8.4-10.2) mg/dL Total Bilirubin (0.2-1.3) mg/dL Total Protein (6.3-8.2) g/dL Albumin (3.5-5.0) g/dL 02/26/24 02/27/24 02/27/24 Range/Units 23:07 03:05 03:05 WBC 13.2 H (3.8-10.6) k/uL RBC 2.52 L (4.30-5.90) m/uL Hgb 7.3 L (13.0-17.5) gm/dL Hct 21.8 L (39.0-53.0) % Neutrophils # 11.9 H (1.3-7.7) k/uL Lymphocytes # 0.5 L (1.0-4.8) k/uL ABG pH (7.35-7.45) ABG HCO3 (21-25) mmol/L ABG Total CO2 (19-24) mmol/L ABG O2 Saturation (94-97) % Sodium 135 L (137-145) mmol/L Glucose 128 H (74-99) mg/dL POC Glucose (mg/dL) 135 H (70-110) mg/dL Calcium 7.3 L (8.4-10.2) mg/dL Total Bilirubin 1.9 H (0.2-1.3) mg/dL Total Protein 4.0 L (6.3-8.2) g/dL Albumin 2.0 L (3.5-5.0) g/dL 02/27/24 02/27/24 Range/Units 04:50 06:09 WBC (3.8-10.6) k/uL RBC (4.30-5.90) m/uL Hgb (13.0-17.5) gm/dL Hct (39.0-53.0) % Neutrophils # (1.3-7.7) k/uL Lymphocytes # (1.0-4.8) k/uL ABG pH (7.35-7.45) ABG HCO3 (21-25) mmol/L ABG Total CO2 (19-24) mmol/L ABG O2 Saturation (94-97) % Sodium (137-145) mmol/L Glucose (74-99) mg/dL POC Glucose (mg/dL) 141 H 164 H (70-110) mg/dL Calcium (8.4-10.2) mg/dL Total Bilirubin (0.2-1.3) mg/dL Total Protein (6.3-8.2) g/dL Albumin (3.5-5.0) g/dL Microbiology - Last 24 Hours (Table) 02/25/24 07:21 Blood Culture - Preliminary Blood 02/23/24 11:40 Blood Culture - Preliminary Blood 02/24/24 15:24 Urine Culture - Final Urine,Voided Assessment and Plan Plan: Acute cholecystitis and the patient underwent an open cholecystectomy. The patient is currently postop day #3. Significant blood loss intraoperatively and the patient was sedated with fluids, colloids/albumin and received a total of 2 units of of packed RBC and a unit of platelets. The patient currently is on no pressors. The BRADLEY output is increased overnight and the hemoglobin is up to 7.3. Will continue monitoring. Output has dropped since early this morning. Surgical wound site is dry clean and intact. Acute enterococcal septicemia secondary to cholecystitis and the patient is currently on a combination of daptomycin and Zosyn. The patient has Enterococcus faecium in the blood cultures, likely VRE Acute respiratory failure post Gallbladder Surgery. Patient was extubated to nasal cannula on 02/26/2024 Previous history of CVA History of hypertension Hyperlipidemia Lewy body dementia with Parkinson disease at baseline with significant motor rigidity and cognitive impairment. Blood loss anemia, expected outcome of surgery and will monitor the hemoglobin and the output from the BRADLEY drain. General surgery is on the case. Plan The patient is significantly impaired neurologically and there is impairment of cognitive function and motor functions. He would not be able to swallow. Recommending insertion of NG tube for enteral feeding and medication. Currently on 2 L of oxygen by nasal cannula Continue IV fluids and the patient is currently on lactated Ringer at rate of 125 cc an hour, will drop the lactated Ringer to 75 cc an hour Continue Zosyn and daptomycin for now Monitor the blood pressure utilize Levophed as needed, currently off pressors Monitor the output from the BRADLEY drain, output is being monitored closely and will also monitor the hemoglobin Will resume Aricept Seroquel once NG tube is inserted. He will also need his Keppra IV Protonix Lovenox for DVT prophylaxis Critical care evaluation was done more than 30 minutes. Working progress, will monitor closely in the intensive care unit. Time with Patient: Greater than 30
--- NOTE | 2024-02-27 11:55 | P.PN ---
Subjective Progress Note Date: 02/27/24 Matthieu Baird is a 68-year-old male with a history of Lewy body dementia, Parkinsons disease, CVA, type 2 diabetes, hypertension and hyperlipidemia. He came into the emergency department with a chief complaint of chest pain. EKG showed normal sinus rhythm with sinus arrhythmia and a right bundle branch bl ock. Chest x-ray found no acute significant findings. Chest CT shows unremarkable findings. Labs showed WBC 14.7, troponin less than 0.12, AST 224, ALT 20, glucose 179, D-dimer 1.93, and proBNP 291. Patient was admitted for further investigation. Gallbladder ultrasound was ordered and found to have acute cholecystitis with distended gallbladder, wall thickening and pericholecystic fluid and sludge. Surgical consult was made and patient was sent to the OR for lap cholecystectomy on 02/24/2024. Converted procedure to open cholecystectomy due to significant adhesions seen. Patient was given a total of 1.5 L of crystalloid fluid, 1 unit of packed RBC and 1000 cc of albumin. Blood cutlures grew Enterococcus, likely VRE. ID was consulted and is following patient. Patient was taken to the ICU for hemodynamic instability and recovery. 02/25/24 No significant events over night. Patient is post-operation day 1. BRADLEY drain shows minimal output. Still on NPO. He remains intubated but comfortable on the mechanical ventilator with minimal support. He still does not follow commands but grimaces to pain. Assisted-control mode at a rate of 60, Tidal volume 400, FiO2 40%, PEEP 5. ABG ph 7.41 CO2 42 O2 155 HCO3 26. He is afebrile and hemodynamically stable at this time. Labs show WBC 12.2, hemoglobin 9.8, platelet count of 201. Chem labs show BUN 22, creatinine 0.9, AST 196. ALT 139, ALP 115. Cultures grew Enterococcus. Patient still on empiric bacterial coverage with Zosyn and Daptomycin. 02/26/24 Patient is post-operation day 2. BRADLEY drain show serosanguinous output 20-50mL. Seen today not in acute distress and comfortable on vent settings AC mode tidal volume 400 RR 22 FiO2 35% PEEP 7. ABG results pH 7.47 CO2 40 O2 96 HCO3 29. Responsive to pain, intermittent alertness. liver function tests trending downward AST 2.1 ALT 4 ALP 98 albumin 2.3. CXR no significant changes. Patient had intermittent episodes of pain around 12am. Given Dilaudid 1mg. Patient then had intermittent episodes of hypotenstion 80-90s/40s. Patient given levophed 0.6 and returned to baseline pressures of 120s/60s at around 1am. CBC showed normal hemoglobin 8.4 hematocrit 24.8 WBC 11.2 platelet count 146. Af ebril and hemodynamically stable at this time. 02/27/2024 Patient is post-operation day 3. BRADLEY drain shows serosanguinous output at about 190-200mL. Extubated yesterday and put on 2L O2 via NC with no complications. Patient is intermittently awake but alert and responsive to pain. Liver function test at normal ranges AST 46 ALT 30 ALP 81. CXR reveals shows increased opacity at RLL and increased hyperlucency below the right diaphragm. Febrile at low 100sF. CBC shows Hgb 7.3 Hct 21.8 WBC 13.2 Plt count 151. Still on IV Zosyn day 3 and IV Daptomycin day 2. On lactate ringers 125ml/h. Hemodynamically stable at this time at 100s/85-90s. Spoke with family regarding patient baseline cognitive state and updated them on patient management. Objective - Vital Signs Vital signs: Vital Signs Temp 100.5 F H 02/27/24 08:00 Pulse 94 02/27/24 10:00 Resp 26 H 02/27/24 10:00 BP 116/61 02/27/24 10:00 Pulse Ox 98 02/27/24 10:00 FiO2 30 02/26/24 15:10 Intake & Output 02/26/24 02/27/24 02/27/24 18:59 06:59 18:59 Intake Total 1786 2064 484 Output Total 405 665 95 Balance 1381 1399 389 Weight 93.3 kg 93.3 kg Intake: IV 1686 4 484 [place] 36 39 9 DAPTOmycin 500 mg In 50 50 Sodium Chloride 0.9% 50 ml @ 100 mls/hr IVPB Q24HR [facility] Rx#:[id number] Lactated Ringers 1,000 ml 1500 1625 325 @ 75 mls/hr IV .[id number] [facility] Rx#:[id number] Magnesium Sulfate-D5w Pmx 100 1 gm In Dextrose/Water 1 100ml.bag @ 100 mls/hr IVPB ONCE ONE Rx#: [id number] Piperacillin-Tazobactam 3 100 .375 gm In Sodium Chloride 0.9% 100 ml @ 25 mls/hr IVPB Q8HR [facility] Rx# :[id number] Piperacillin-Tazobactam 3 100 100 .375 gm In Sodium Chloride 0.9% 100 ml @ 25 mls/hr IVPB Q8HR [facility] Rx# :[id number] Potassium Chloride 10 meq 200 In Water For Injection 1 100ml.bag @ 100 mls/hr IVPB Q1H [facility] Rx#: [id number] Other 100 Output: Drainage 40 290 15 Right Abdomen 40 290 15 Urine 365 375 80 Other: Voiding Method Indwelling Catheter Indwelling Catheter ABP, PAP, CO, CI - Last Documented Arterial Blood Pressure 128/48 - Constitutional Constitutional Comment(s): asleep, comfortable, appears as age General appearance: Present: no acute distress - EENT EENT Comment(s): eyes and ears cannot be fully assessed Eyes: Present: poor dentition - Neck Details: no lesions, atraumatic, ROM cannot be assessed Carotids: bilateral: upstroke normal Thyroid: bilateral: normal size - Respiratory Respiratory: right: diminished (right lower segment), negative: dullness, rales, rhonchi, wheezing, prolonged expiration, prolonged inspiration - Cardiovascular Heart rate: 84 Rhythm: regular Heart sounds: normal: S1, S2 Abnormal Heart Sounds: Absent: systolic murmur, diastolic murmur, rub, S3 Gallop, S4 Gallop, click - Gastrointestinal Gastrointestinal Comment(s): scars present at lower abdomen midline and right upper quadrant. sutures present, wound clean and dry General gastrointestinal: Present: normal bowel sounds, soft - Integumentary Integumentary: Present: normal turgor, pale - Neurologic Neurologic Comment(s): responsive to pain, intermittent wakefulness and alertness - Musculoskeletal Musculoskeletal Comment(s): rigidity bilteral upper extremities and eyeslids - Labs CBC & Chem 7: 02/27/24 03:05 02/27/24 03:05 Labs: Abnormal Lab Results - Last 24 Hours (Table) 02/26/24 02/26/24 02/26/24 Range/Units 11:24 18:07 23:07 WBC (3.8-10.6) k/uL RBC (4.30-5.90) m/uL Hgb (13.0-17.5) gm/dL Hct (39.0-53.0) % Neutrophils # (1.3-7.7) k/uL Lymphocytes # (1.0-4.8) k/uL Sodium (137-145) mmol/L Glucose (74-99) mg/dL POC Glucose (mg/dL) 154 H 127 H 135 H (70-110) mg/dL Calcium (8.4-10.2) mg/dL Total Bilirubin (0.2-1.3) mg/dL Total Protein (6.3-8.2) g/dL Albumin (3.5-5.0) g/dL 02/27/24 02/27/24 02/27/24 Range/Units 03:05 03:05 04:50 WBC 13.2 H (3.8-10.6) k/uL RBC 2.52 L (4.30-5.90) m/uL Hgb 7.3 L (13.0-17.5) gm/dL Hct 21.8 L (39.0-53.0) % Neutrophils # 11.9 H (1.3-7.7) k/uL Lymphocytes # 0.5 L (1.0-4.8) k/uL Sodium 135 L (137-145) mmol/L Glucose 128 H (74-99) mg/dL POC Glucose (mg/dL) 141 H (70-110) mg/dL Calcium 7.3 L (8.4-10.2) mg/dL Total Bilirubin 1.9 H (0.2-1.3) mg/dL Total Protein 4.0 L (6.3-8.2) g/dL Albumin 2.0 L (3.5-5.0) g/dL 02/27/24 Range/Units 06:09 WBC (3.8-10.6) k/uL RBC (4.30-5.90) m/uL Hgb (13.0-17.5) gm/dL Hct (39.0-53.0) % Neutrophils # (1.3-7.7) k/uL Lymphocytes # (1.0-4.8) k/uL Sodium (137-145) mmol/L Glucose (74-99) mg/dL POC Glucose (mg/dL) 164 H (70-110) mg/dL Calcium (8.4-10.2) mg/dL Total Bilirubin (0.2-1.3) mg/dL Total Protein (6.3-8.2) g/dL Albumin (3.5-5.0) g/dL Microbiology - Last 24 Hours (Table) 02/25/24 07:21 Blood Culture - Preliminary Blood 02/23/24 11:40 Blood Culture - Preliminary Blood 02/24/24 15:24 Urine Culture - Final Urine,Voided - Imaging and Cardiology Chest x-ray: report reviewed Assessment and Plan Assessment: Acute cholecystitis and the patient underwent an open cholecystectomy. Patient is post-operation day 3. BRADLEY drain output is increased Not on sedation. Not on hemodynamic support. On IV lactate ringer 125ml/h Acute enterococcal septicemia secondary to cholecystitis. Blood cultures grew Enterococcus faecium, likely VRE. Currently on Zosyn and Vancomycin. Acute respiratory failure post cholecystectomy. Patient Was kept intubated for surgery due to ongoing comorbidities and hemodynamic instability and blood loss. Oxygenation is stable for now. Now on 2L O2 via NC Lewy body dementia with Parkinson disease at baseline Previous history of CVA Hyperglycemia Hyperlipidemia History of hypertension Plan: Continue to monitor in ICU Monitor and assess mental status On 2L O2 NC Insert NG tube Start enteral feed via NG tube. Glucerna 1.5 rate of 10 Continue IV fluids of Lactate ringers decrease rate to 75cc/hr Continue Zosyn and Daptomycin Hold Propofol Discontinue Ativan, Claritin for now Continue to monitor blood pressure. Levophed PRN GI prophylaxis (Protonix) Monitor BRADLEY drain output Stop antihypertensive medications General Surgery, Rn Baby consults appreciated Prognosis is guarded. He is full code Time with Patient: Greater than 30
--- NOTE | 2024-02-27 12:16 | XR ---
EXAMINATION TYPE: XR chest 1V portable DATE OF EXAM: 02/27/2024 11:33 AM CLINICAL INDICATION:Male, 68 years old with history of NGT placement; COMPARISON: Chest radiographs from 02/27/2024 TECHNIQUE: XR chest 1V portable Frontal view of the chest. FINDINGS: Lungs/Pleura: Blunting of the right costophrenic angle. There is low lung volumes. There is no eviden ce of left pleural effusion, focal consolidation, or pneumothorax. Pulmonary vascularity: Unremarkable. Heart/mediastinum: Cardiomediastinal silhouette is unremarkable. Musculoskeletal: No acute osseous pathology. Other findings: Right upper quadrant surgical clips and Adam-Singh drain. Lines/Tubes: Nasogastric tube with its distal tip and side-port projecting under the diaphragm. IMPRESSION: 1. Low lung volumes with possible right pleural effusion. 2. Nasogastric tube in appropriate position. 3. Right upper quadrant Adam-Singh drain.
--- NOTE | 2024-02-27 14:13 | P.PN ---
Subjective Progress Note Date: 02/27/24 Hospital Course: Patient is a very pleasant 68-year-old male with a past medical history of hyp ertension, hyperlipidemia, CVA, insulin-dependent diabetes mellitus, Lewy body dementia, Parkinson's disease, and obstructive sleep apnea. He presented to the emergency department 02/22/2024 with a chief complaint of chest pain. Altered facility, patient evaluation emergency department. Vital signs upon arrival show blood pressure 138/79, heart rate 90, respiratory rate 19, temperature 98.4 F, and SpO2 98% on room air. EKG showing normal sinus rhythm at 91 bpm with right bundle branch block. Chest x-ray completed negative for acute cardiopulmonary process. Labs completed and reviewed. CBC showing leukocytosis with WBC count of 14.7 otherwise normal findings. Coagulation profile showing elevated PT of 12.9, INR of 1.2, and D-dimer of 1.93. BMP unremarkable with exception of mild hyperglycemia with glucose of 179. Liver profile showing hyperbilirubinemia with elevated transaminases with total bili of 2.2, AST of 224, and alkaline phosphatase of 233. Troponin was negative at less than 0.012. CTA chest completed negative for PE. Patient was admitted under our services with consultation to cardiology. Gallbladder ultrasound was ordered and results reviewed. Radiologist reporting findings concerning for acute cholecystitis with distended gallbladder, wall thickening with pericholecystic fluid and tumefactive sludge. Consult placed to general surgeon. Patient underwent cholecystectomy. Procedure complicated by significant blood loss. Patient was subsequently moved to medical ICU for further recovery. Blood cultures 1 out of 2 growing Enterococcus, likely VRE. ID also following. Patient currently in medical ICU. Now extubated. Hemoglobin relatively stable. Subjective: Seen and examined at bedside. No acute events overnight. Was extubated yesterday. Has adequate urine output, Fernandes catheter in place. Patient is still somewhat drowsy. Has an NG tube in place. No bowel movements. Drain in place. Pertinent positives and negatives as discussed above, a complete review of systems was performed and all other systems are negative. Vitals Signs Reviewed. General: Not in acute distress Derm: Warm, dry Head: Atraumatic, normocephalic, symmetric Eyes: EOMI, pupils equal and reactive, anicteric sclera Mouth: No lip lesion, mucus membranes moist Cardiovascular: S1S2 reg, no murmur Lungs: CTA bilateral, no rhonchi, no rales, no accessory muscle use, supplemental oxygen Abdominal: Soft, nontender to palpation, abdominal binder in place, BRADLEY drain in place Ext: No gross muscle atrophy, no edema, no contractures Neuro: Drowsy, CN II to XII grossly normal Psych: Drowsy, cooperative Data Reviewed Today: Pertinent Labs: WBC 13.2, hemoglobin 7.3, sodium 135, potassium 3.7, creatinine 0.8, blood sugars range between 1 28-1 64, magnesium 1.8, total bili 1.9, AST 46, ALT 30, ALP 81 Imaging: Chest x-ray independently interpreted, suspected right pleural effusion, NG tube in place. Assessment and Plan: Active: Acute cholecystitis status postcholecystectomy VRE bacteremia Acute encephalopathy Leukocytosis, reactive Acute blood loss anemia, intraoperatively status post 2 units of PRBCs, and 1 unit of platelets Hemorrhagic shock, resolved Ventilator dependent respiratory failure, resolved Right pleural effusion suspected Transaminitis, resolved Hypomagnesemia, resolved -Hemoglobin did trend down, overall hemodynamically stable -ID following, patient currently on IV daptomycin 500 mg every 24 hours, IV Zosyn 3.375 g every 8 hours -Pulmonology note reviewed, patient to get NG tube for enteral feeding due to poor cognition, reduced LR to 75 cc an hour -No longer requiring any pressors -Surgery following -Plavix on hold, continued on aspirin Insulin-dependent diabetes -Sliding scale insulin, every 6 hours, monitor for hypoglycemia Chronic: Lewy body dementia, Parkinson's disease Depression History of CVA History of hypertension Dyslipidemia RONNELL DVT ppx: Lovenox Code status: Full code Anticipated discharge place: Pending clinical course Anticipated discharge time: Pending clinical course Objective - Vital Signs Vital signs: Vital Signs Temp 100.5 F H 02/27/24 12:00 Pulse 91 02/27/24 13:00 Resp 20 02/27/24 13:00 BP 118/68 02/27/24 13:00 Pulse Ox 92 L 02/27/24 13:00 FiO2 30 02/26/24 15:10 Intake & Output 02/26/24 02/27/24 02/27/24 18:59 06:59 18:59 Intake Total 1786 2064 768 Output Total 405 665 187 Balance 1381 1399 581 Weight 93.3 kg 93.3 kg Intake: IV 1686 2064 718 [place] 36 39 18 DAPTOmycin 500 mg In 50 50 Sodium Chloride 0.9% 50 ml @ 100 mls/hr IVPB Q24HR [facility] Rx#:[id number] Lactated Ringers 1,000 ml 1500 1625 550 @ 75 mls/hr IV .[id number] [facility] Rx#:[id number] Magnesium Sulfate-D5w Pmx 100 1 gm In Dextrose/Water 1 100ml.bag @ 100 mls/hr IVPB ONCE ONE Rx#: [id number] Piperacillin-Tazobactam 3 100 .375 gm In Sodium Chloride 0.9% 100 ml @ 25 mls/hr IVPB Q8HR [facility] Rx# :[id number] Piperacillin-Tazobactam 3 100 100 .375 gm In Sodium Chloride 0.9% 100 ml @ 25 mls/hr IVPB Q8HR [facility] Rx# :[id number] Potassium Chloride 10 meq 200 In Water For Injection 1 100ml.bag @ 100 mls/hr IVPB Q1H [facility] Rx#: [id number] Tube Feeding 20 Other 100 30 Output: Drainage 40 290 35 Right Abdomen 40 290 35 Urine 365 375 152 Other: Voiding Method Indwelling Catheter Indwelling Catheter Indwelling Catheter ABP, PAP, CO, CI - Last Documented Arterial Blood Pressure 117/42 - Labs CBC & Chem 7: 02/27/24 03:05 02/27/24 03:05 Labs: Abnormal Lab Results - Last 24 Hours (Table) 02/26/24 02/26/24 02/27/24 Range/Units 18:07 23:07 03:05 WBC 13.2 H (3.8-10.6) k/uL RBC 2.52 L (4.30-5.90) m/uL Hgb 7.3 L (13.0-17.5) gm/dL Hct 21.8 L (39.0-53.0) % Neutrophils # 11.9 H (1.3-7.7) k/uL Lymphocytes # 0.5 L (1.0-4.8) k/uL Sodium (137-145) mmol/L Glucose (74-99) mg/dL POC Glucose (mg/dL) 127 H 135 H (70-110) mg/dL Calcium (8.4-10.2) mg/dL Total Bilirubin (0.2-1.3) mg/dL Total Protein (6.3-8.2) g/dL Albumin (3.5-5.0) g/dL 02/27/24 02/27/24 02/27/24 Range/Units 03:05 04:50 06:09 WBC (3.8-10.6) k/uL RBC (4.30-5.90) m/uL Hgb (13.0-17.5) gm/dL Hct (39.0-53.0) % Neutrophils # (1.3-7.7) k/uL Lymphocytes # (1.0-4.8) k/uL Sodium 135 L (137-145) mmol/L Glucose 128 H (74-99) mg/dL POC Glucose (mg/dL) 141 H 164 H (70-110) mg/dL Calcium 7.3 L (8.4-10.2) mg/dL Total Bilirubin 1.9 H (0.2-1.3) mg/dL Total Protein 4.0 L (6.3-8.2) g/dL Albumin 2.0 L (3.5-5.0) g/dL 02/27/24 Range/Units 11:08 WBC (3.8-10.6) k/uL RBC (4.30-5.90) m/uL Hgb (13.0-17.5) gm/dL Hct (39.0-53.0) % Neutrophils # (1.3-7.7) k/uL Lymphocytes # (1.0-4.8) k/uL Sodium (137-145) mmol/L Glucose (74-99) mg/dL POC Glucose (mg/dL) 139 H (70-110) mg/dL Calcium (8.4-10.2) mg/dL Total Bilirubin (0.2-1.3) mg/dL Total Protein (6.3-8.2) g/dL Albumin (3.5-5.0) g/dL Microbiology - Last 24 Hours (Table) 02/26/24 03:58 Blood Culture - Preliminary Blood 02/25/24 07:21 Blood Culture - Preliminary Blood 02/23/24 11:40 Blood Culture - Preliminary Blood 02/24/24 15:24 Urine Culture - Final Urine,Voided
--- NOTE | 2024-02-27 14:48 | P.PN ---
Subjective Progress Note Date: 02/27/24 Principal diagnosis: Reason for follow-up is acute cholecystitis and bacteremia Patient is a 68-year-old male with a past medical history significant for diabetes mellitus hypertension sleep apnea CVA TIA Parkinson disease patient was brought into the hospital initially for chest pain has been diagnosed with acute cholecystitis and also have VRE bacteremia. Patient is status post laparoscopic cholecystectomy on 02/24/2024 subsequent requiring admission to the ICU on the ventilator. On today's evaluation that is 02/27/2024, Patient running a low-grade fever of 100.9 at midnight and 100.5 at noon patient has been extubated and currently breathing comfortably on 2 L current oxygen patient is slightly lethargic not a very good historian no vomiting diarrhea or any other changes reported by the nursing staff. Patient white count is 13.2 hemoglobin is down to 7.3 creatinine 0.80 blood culture repeat has been negative so far Objective - Vital Signs Vital signs: Vital Signs Temp 100.5 F H 02/27/24 08:00 Pulse 94 02/27/24 10:00 Resp 26 H 02/27/24 10:00 BP 116/61 02/27/24 10:00 Pulse Ox 98 02/27/24 10:00 FiO2 30 02/26/24 15:10 Intake & Output 02/26/24 02/27/24 02/27/24 18:59 06:59 18:59 Intake Total 1786 2064 484 Output Total 405 665 95 Balance 1381 1399 389 Weight 93.3 kg 93.3 kg Intake: IV 1686 2064 484 [place] 36 39 9 DAPTOmycin 500 mg In 50 50 Sodium Chloride 0.9% 50 ml @ 100 mls/hr IVPB Q24HR [facility] Rx#:[id number] Lactated Ringers 1,000 ml 1500 1625 325 @ 75 mls/hr IV .[id number] [facility] Rx#:[id number] Magnesium Sulfate-D5w Pmx 100 1 gm In Dextrose/Water 1 100ml.bag @ 100 mls/hr IVPB ONCE ONE Rx#: [id number] Piperacillin-Tazobactam 3 100 .375 gm In Sodium Chloride 0.9% 100 ml @ 25 mls/hr IVPB Q8HR [facility] Rx# :[id number] Piperacillin-Tazobactam 3 100 100 .375 gm In Sodium Chloride 0.9% 100 ml @ 25 mls/hr IVPB Q8HR [facility] Rx# :[id number] Potassium Chloride 10 meq 200 In Water For Injection 1 100ml.bag @ 100 mls/hr IVPB Q1H [facility] Rx#: [id number] Other 100 Output: Drainage 40 290 15 Right Abdomen 40 290 15 Urine 365 375 80 Other: Voiding Method Indwelling Catheter Indwelling Catheter ABP, PAP, CO, CI - Last Documented Arterial Blood Pressure 128/48 - Exam GENERAL DESCRIPTION: An elderly male lying in bed in no distress RESPIRATORY SYSTEM: Unlabored breathing , decreased breath sounds at bases HEART: S1 S2 regular rate and rhythm , ABDOMEN: Soft , no tenderness EXTREMITIES: No edema feet - Labs CBC & Chem 7: 02/27/24 03:05 02/27/24 03:05 Labs: Abnormal Lab Results - Last 24 Hours (Table) 02/26/24 02/26/24 02/26/24 Range/Units 11:24 18:07 23:07 WBC (3.8-10.6) k/uL RBC (4.30-5.90) m/uL Hgb (13.0-17.5) gm/dL Hct (39.0-53.0) % Neutrophils # (1.3-7.7) k/uL Lymphocytes # (1.0-4.8) k/uL Sodium (137-145) mmol/L Glucose (74-99) mg/dL POC Glucose (mg/dL) 154 H 127 H 135 H (70-110) mg/dL Calcium (8.4-10.2) mg/dL Total Bilirubin (0.2-1.3) mg/dL Total Protein (6.3-8.2) g/dL Albumin (3.5-5.0) g/dL 02/27/24 02/27/24 02/27/24 Range/Units 03:05 03:05 04:50 WBC 13.2 H (3.8-10.6) k/uL RBC 2.52 L (4.30-5.90) m/uL Hgb 7.3 L (13.0-17.5) gm/dL Hct 21.8 L (39.0-53.0) % Neutrophils # 11.9 H (1.3-7.7) k/uL Lymphocytes # 0.5 L (1.0-4.8) k/uL Sodium 135 L (137-145) mmol/L Glucose 128 H (74-99) mg/dL POC Glucose (mg/dL) 141 H (70-110) mg/dL Calcium 7.3 L (8.4-10.2) mg/dL Total Bilirubin 1.9 H (0.2-1.3) mg/dL Total Protein 4.0 L (6.3-8.2) g/dL Albumin 2.0 L (3.5-5.0) g/dL 02/27/24 Range/Units 06:09 WBC (3.8-10.6) k/uL RBC (4.30-5.90) m/uL Hgb (13.0-17.5) gm/dL Hct (39.0-53.0) % Neutrophils # (1.3-7.7) k/uL Lymphocytes # (1.0-4.8) k/uL Sodium (137-145) mmol/L Glucose (74-99) mg/dL POC Glucose (mg/dL) 164 H (70-110) mg/dL Calcium (8.4-10.2) mg/dL Total Bilirubin (0.2-1.3) mg/dL Total Protein (6.3-8.2) g/dL Albumin (3.5-5.0) g/dL Microbiology - Last 24 Hours (Table) 02/25/24 07:21 Blood Culture - Preliminary Blood 02/23/24 11:40 Blood Culture - Preliminary Blood 02/24/24 15:24 Urine Culture - Final Urine,Voided Assessment and Plan (1) Sepsis Current Visit: Yes Status: Acute Code(s): A41.9 - SEPSIS, UNSPECIFIED ORGANISM SNOMED Code(s): 81657487 (2) Cholecystitis Current Visit: Yes Status: Acute Code(s): K81.9 - CHOLECYSTITIS, UNSPECIFIED SNOMED Code(s): 24611412 (3) VRE bacteremia Current Visit: Yes Status: Acute Code(s): R78.81 - BACTEREMIA; B95.2 - ENTEROCOCCUS THE CAUSE OF DISEASES CLASSIFIED ELSEWHERE; Z16.21 - RESISTANCE TO VANCOMYCIN SNOMED Code(s): 9058018402 (4) Allergy to cephalosporin Current Visit: Yes Status: Acute Code(s): Z88.1 - ALLERGY STATUS TO OTHER ANTIBIOTIC AGENTS SNOMED Code(s): 652192790 Plan: 1patient presented hospital with sepsis in this patient who did have fever elevated white count source is acute cholecystitis usually associated with a gram-negative bacteria and also secondary to Enterococcus 2-VRE bacteremia source could be acute gastritis 3-blood culture has been repeated and so far negative 4-patient has been extubated is running a low-grade fever also noted to have drop in hemoglobin question of possible hematoma also has been repeated continue with Zyvox and Zosyn if persistent fever or further drop in hemoglobin will benefit from CT abdominal pelvis Dictation was produced using [employer] dictation software. please excuse any grammatical, word or spelling errors.
[2024-02-27 16:22] LABS: Glucose,Whole Blood 128 mg/dL (70-110)
--- NOTE | 2024-02-27 19:02 | P.PN ---
Progress Note - Text Progress Note Date: 02/27/24 CHIEF COMPLAINT: Cholecystitis HISTORY OF PRESENT ILLNESS: Patient is lethargic. Pain is controlled ROS: No reports of nausea and vomiting. No bowel movements. No fevers or chills. PHYSICAL EXAM: VITAL SIGNS: Reviewed CONSTITUTIONAL: Well developed and in no acute distress. EYES: Conjuctivae without sclera icterus. Extraocular movements grossly intact. HEAD, EARS, NOSE, THROAT: Moist buccal mucosa. Head is atraumatic, normocephalic. Hears conversational speech. No nasal drainage. Poor dentition. RESPIRATORY: Non-labored respirations and equal bilateral excursions. CARDIOVASCULAR: Palpable 2+ radial pulses. ABDOMEN: Upper abdominal dressing intact. BRADLEY sanguinous without bile. BRADLEY output 40 to 50 cc per every 8 hour shift. MUSCULOSKELETAL: No gross deformity of the lower extremities noted. No clubbing. No cyanosis. SKIN: Good skin turgor. Well perfused. NEUROLOGIC: No focal or lateralizing signs. PSYCH: Depressed, sedated. CLINICAL LABS: Reviewed. Hemoglobin trending down ASSESSMENT: 1. Acute cholecystitis 2. Acute respiratory failure status post cholecystectomy 3. Parkinson's disease 4. Anemia PLAN: 1. Continue to monitor output from BRADLEY drain for acute blood loss anemia. 2. Monitor hemoglobin: Hgb 7.3(8.9) 3. Antibiotic management per infectious disease. 4. ICU Care
[2024-02-27] MEDS ORDERED: MIDODRINE 5 MG TAB NG-TUBE PRN (20:50)
[2024-02-27] MEDS: MECLIZINE 25 MG TAB NG-TUBE SCH (22:48)
[2024-02-27] MEDS: DONEPEZIL 10 MG TAB NG-TUBE SCH (22:48)
[2024-02-27] MEDS: levETIRAcetam 500 MG TAB NG-TUBE SCH (22:48)
[2024-02-28 00:43] LABS: Glucose,Whole Blood 159 mg/dL (70-110)
[2024-02-28] MEDS: INSULIN ASPART (NovoLOG) 100 UNIT/ML VIAL SQ SCH (00:53)
[2024-02-28 04:02] LABS: African American GFR (CKD) >90 (>60 ml/min/1.73 sqM); Anion Gap 3 mmol/L; Blood Urea Nitrogen 21 mg/dL (9-20); Calcium 7.3 mg/dL (8.4-10.2); Carbon Dioxide 25 mmol/L (22-30); Chloride 108 mmol/L (98-107); Glucose 131 mg/dL (74-99); Non-African American GFR(CKD) >90 (>60 ml/min/1.73 sqM); Potassium 3.6 mmol/L (3.5-5.1); Sodium 136 mmol/L (137-145)
[2024-02-28 04:09] LABS: MCH 28.8 pg (25.0-35.0); MCHC 32.2 g/dL (31.0-37.0); MCV 89.3 fL (80.0-100.0); Mean Platelet Volume 7.3; Platelet Count 195 k/uL (150-450); RBC 2.18 m/uL (4.30-5.90); RDW 14.2 % (11.5-15.5); WBC 11.1 k/uL (3.8-10.6)
[2024-02-28 04:12] LABS: HGB 6.3 gm/dL (13.0-17.5)
[2024-02-28 04:13] LABS: HCT 19.5 % (39.0-53.0)
[2024-02-28 05:33] LABS: Glucose,Whole Blood 151 mg/dL (70-110)
[2024-02-28] MEDS: ASPIRIN 81 MG NG-TUBE SCH (07:03)
[2024-02-28] MEDS: ESCITALOPRAM 20 MG TAB NG-TUBE SCH (07:17)
[2024-02-28 08:06] LABS: Appearance,Urine Clear (Clear); Bacteria,Urine Rare /hpf; Bilirubin,Urine Negative (Negative); Blood,Urine Trace (Negative); Color,Urine Yellow; Glucose,Urine (UA) Trace (Negative); Ketones,Urine Negative (Negative); Leukocyte Esterase,Urine Negative (Negative); Mucus,Urine Rare /hpf; Nitrite,Urine Negative (Negative); Protein,Urine Trace (Negative); RBC,Urine 4 /hpf (0-5); Specific Gravity,Urine 1.031 (1.001-1.035); WBC,Urine 2 /hpf (0-5)
[2024-02-28 11:41] LABS: Glucose,Whole Blood 141 mg/dL (70-110)
[2024-02-28] MEDS: CARBIDOPA-LEVODOPA 25-100 MG 1 EACH TAB NG-TUBE SCH (12:28)
--- NOTE | 2024-02-28 12:57 | P.PN ---
Subjective Progress Note Date: 02/28/24 This is a 68-year-old male patient who is currently intubated on mechanical ventilator. The patient was taken to the operating room for acute cholecystitis and bacteremia. The patient was found to have severe acute cholecystitis and the patient was initially supposed to have a laparoscopic cholecystectomy and this was converted to an open procedure. The patient was found to have significant adhesions. The gallbladder was taken out. The patient encountered bleeding and estimated blood loss was in the order of 1000 cc. The patient accordingly was given a total of 1.5 L of crystalloid in the operating room, 1 unit of packed RBC, a total of 1000 cc of albumin. Output from the BRADLEY drain is minimal at this point in time. The patient is currently on propofol running at 15 mcg/kg/min. He is on assist-control mode of mechanical ventilation at a rate of 16, tidal volume of 400, FiO2 40% with a PEEP of 5. The blood pressure was soft in the ICU and the patient was given additional liter of lactated Ringer. Blood gas showed a pH of 7.38 with a pCO2 of 40 and pO2 of more than 420. FiO2 was dropped accordingly. Chest x-ray shows borderline heart size and some atelectatic change in the left midlung. The patient's blood culture showing Enterococcus faecium and based on that the patient was kept on a combination of Zosyn and daptomycin. No pressors for now. Note that the patient is known to have previous history of CVA. He has insulin-dependent diabetes mellitus and hypertension hyperlipidemia and Lewy body dementia and Parkinson's disease. He has also history of obstructive sleep apnea. His gallbladder ultrasound that was done at the time of admission showed acute cholecystitis with distended gallbladder wall thickening and the CT of the chest that was done on 02/23/2024 showed no evidence of any pulmonary embolism. The lungs were essentially clear from any acute pulmonary filtration. On 02/25/2024, the patient remains intubated on the mechanical ventilator. No significant events overnight. The patient is postop day #1 following an open cholecystectomy. Output from the BRADLEY drain is minimal at this point in time. The patient is currently on propofol which is running at 20 mcg/kg/min. He remains on assist-control mode of mechanical ventilation at rate of 60, tidal volume of 450, FiO2 of 30% with a PEEP of 5. Blood gas showed a pH of 7.41 with a pCO2 of 42 and pO2 of 155. The patient was given a total of 2 units of packed RBC postop. He was also given a unit of platelets. No active bleeding. Remains on lactated Ringer at rate of 125 cc an hour. Remains NPO. No pressors for now and the norepinephrine has been discontinued. The white cell count of 12.2 with a hemoglobin 9.8 and a platelet count of 201. BUN is 22 with a creatinine 0.9 and his sodium level is 136. AST is 196, ALT is 139 with an alkaline phosphatase of 115. Cultures positive for Enterococcus faecium and the patient remains on a combination of Zosyn and daptomycin. Afebrile. H emodynamically stable at this point in time. 02/26/2024, the patient is quite lethargic, sleepy, rigid, slightly responsive to verbal stimulation. He grimaces to painful stimulation. To my understanding, the patient has significant Lewy body dementia with chronic rigidity and cognitive impairment. The patient remains on the mechanical ventilator. Off sedation. Currently on assist-control mode with rate of 16, tidal volume of 400 and FiO2 of 30% with a PEEP of 5. The blood gas from today shows a pH of 7.48 with a pCO2 of 38 and pO2 of 87. Chest x-ray from today shows patchy opacity in the right lung base/atelectasis. Orogastric and orotracheal tube are both in place. The patient is hemodynamically stable. The patient is afebrile. The patient on lactated Ringer at rate of 125 cc an hour. BRADLEY drain output is serous. The LFTs are essentially within normal limits. Sodium is at 136, BUN is 20 with a creatinine of 0.8 and a potassium levels of 3.8. The white cell count 11.2 with a hemoglobin 8.4 and a platelet count of 146. Remains on Zosyn and daptomycin. No other significant events overnight. 02/27/2024, the patient is extubated and the patient is currently on 2 L of oxygen by nasal cannula. Significant neurologic impairment and cognitive impairment and rigidity. Does not communicate. Does not follow any simple commands. Unable to swallow. Respiratory status is stable. Hemodynamically stable. Repeat chest x-ray was done today and the patient was found to have some right- sided atelectasis and small right-sided pleural effusion. Abdomen is nondistended. Surgical wound site is dry clean and intact. BRADLEY drain is in place. Output overnight was elevated and the patient produced approximately 490 cc over the past 8 hours and currently the output is down to 5 to 10 cc an hour. Output is somewhat bloody/serosanguineous. Remains on lactated Ringer at 125 cc an hour. No pressors. Remains on Zosyn and vancomycin. Hemoglobin is down to 7.3 with a white cell count of 13.2. Electrolytes are all within normal limits. Afebrile. 02/28/2024, the patient is being seen for a follow-up. The patient got transferred out of the intensive care unit yesterday after being extubated. For now, the patient has an NG tube placed and the patient is sleeping Glucerna for enteral feeding and nutritional support. The abdominal scar is dry clean and intact. BRADLEY drain is in place and the output is in the order of 10 cc an hour. Hemoglobin has dropped down to 6.3 and the patient will receive another unit of packed RBC. No evidence of any GI bleeding at this point in time. No coffee- ground emesis. Hemodynamically stable. Neurologic status is unchanged and the patient has significant neurologic impairment due to his Lewy body dementia. The white cell count 11, hemoglobin is 6.3 and a platelet count of 195, BUN is 21 with a creatinine of 0.7. Stable 2 L of oxygen by nasal cannula with a pulse ox of 98%. The patient is postop day #4 following an open cholecystectomy. Objective - Vital Signs Vital signs: Vital Signs Temp 98.8 F 02/28/24 09:51 Pulse 80 02/28/24 09:51 Resp 16 02/28/24 09:51 BP 111/59 02/28/24 09:51 Pulse Ox 97 02/28/24 09:51 FiO2 30 02/26/24 15:10 Intake & Output 02/27/24 02/28/24 02/28/24 18:59 06:59 18:59 Intake Total 1398 0 310 Output Total 432 Balance 966 0 310 Weight 93.3 kg 95.5 kg Intake: IV 1268 [place] 18 DAPTOmycin 500 mg In 50 Sodium Chloride 0.9% 50 ml @ 100 mls/hr IVPB Q24HR [facility] Rx#:[id number] Lactated Ringers 1,000 ml 1000 @ 75 mls/hr IV .[id number] [facility] Rx#:[id number] Piperacillin-Tazobactam 3 200 .375 gm In Sodium Chloride 0.9% 100 ml @ 25 mls/hr IVPB Q8HR [facility] Rx# :[id number] Tube Feeding 70 Blood Product 0 310 Rc As-1 Unit 0 310 [id number] Other 60 Output: Drainage 55 Right Abdomen 55 Urine 377 Other: Voiding Method Indwelling Catheter Indwelling Catheter ABP, PAP, CO, CI - Last Documented Arterial Blood Pressure 117/42 - Exam Calm and comfortable extubated to 2 L of oxygen by nasal cannula Head exam was generally normal. There was no scleral icterus or corneal arcus. Mucous membranes were moist. Neck was supple and without jugular venous distension, thyromegaly, or carotid bruits. Carotids were easily palpable bilaterally. There was no adenopathy. Lung sounds are diminished bilaterally otherwise clear. Cardiac exam revealed the PMI to be normally situated and sized. The rhythm was regular and no extrasystoles were noted during several minutes of auscultation. The first and second heart sounds were normal and physiologic splitting of the second heart sound was noted. There were no murmurs, rubs, clicks, or gallops. Abdominal exam revealed normal bowel sounds. The abdomen was soft, non-tender, and without masses, organomegaly, or appreciable enlargement of the abdominal aorta. Surgical wound over the right upper quadrant is dry clean and intact and the patient has a BRADLEY drain in place. Examination of the extremities revealed easily palpable radial, femoral and pedal pulses. There was no cyanosis, clubbing or edema. Examination of the skin revealed no evidence of significant rashes, suspicious appearing nevi or other concerning lesions. Neurologically the patient is cognitively impaired, unable to communicate. He moans. Significant rigidity in all 4 extremities. Adequate motor and sensory assessment cannot be done. He is nonambulatory. - Labs CBC & Chem 7: 02/28/24 03:23 02/28/24 03:23 Labs: Abnormal Lab Results - Last 24 Hours (Table) 02/27/24 02/27/24 02/28/24 Range/Units 11:08 16:21 00:40 WBC (3.8-10.6) k/uL RBC (4.30-5.90) m/uL Hgb (13.0-17.5) gm/dL Hct (39.0-53.0) % Sodium (137-145) mmol/L Chloride (98-107) mmol/L BUN (9-20) mg/dL Glucose (74-99) mg/dL POC Glucose (mg/dL) 139 H 128 H 159 H (70-110) mg/dL Calcium (8.4-10.2) mg/dL Urine Protein (Negative) Urine Glucose (UA) (Negative) Urine Blood (Negative) Urine Bacteria (None) /hpf Urine Mucus (None) /hpf Crossmatch 02/28/24 02/28/24 02/28/24 Range/Units 03:23 03:23 04:40 WBC 11.1 H (3.8-10.6) k/uL RBC 2.18 L (4.30-5.90) m/uL Hgb 6.3 L* (13.0-17.5) gm/dL Hct 19.5 L* (39.0-53.0) % Sodium 136 L (137-145) mmol/L Chloride 108 H (98-107) mmol/L BUN 21 H (9-20) mg/dL Glucose 131 H (74-99) mg/dL POC Glucose (mg/dL) (70-110) mg/dL Calcium 7.3 L (8.4-10.2) mg/dL Urine Protein (Negative) Urine Glucose (UA) (Negative) Urine Blood (Negative) Urine Bacteria (None) /hpf Urine Mucus (None) /hpf Crossmatch See Detail 02/28/24 02/28/24 Range/Units 05:31 06:55 WBC (3.8-10.6) k/uL RBC (4.30-5.90) m/uL Hgb (13.0-17.5) gm/dL Hct (39.0-53.0) % Sodium (137-145) mmol/L Chloride (98-107) mmol/L BUN (9-20) mg/dL Glucose (74-99) mg/dL POC Glucose (mg/dL) 151 H (70-110) mg/dL Calcium (8.4-10.2) mg/dL Urine Protein Trace H (Negative) Urine Glucose (UA) Trace H (Negative) Urine Blood Trace H (Negative) Urine Bacteria Rare H (None) /hpf Urine Mucus Rare H (None) /hpf Crossmatch Microbiology - Last 24 Hours (Table) 02/25/24 07:21 Blood Culture - Preliminary Blood 02/26/24 03:58 Blood Culture - Preliminary Blood Assessment and Plan Plan: Acute cholecystitis and the patient underwent an open cholecystectomy. The patient is currently postop day #4. Significant blood loss intraoperatively and the patient was sedated with fluids, colloids/albumin and received packed RBC and platelets. The patient was then weaned off the mechanical ventilator and the patient was extubated. The patient is currently on 2 L of oxygen by nasal cannula. There is ongoing issues with a drop in hemoglobin down to 6.3. Will receive another unit of packed RBC. No evidence of any acute bleeding and the output from the BRADLEY drain is minimal at this point in time. Acute enterococcal septicemia secondary to cholecystitis and the patient is currently on a combination of daptomycin and Zosyn. The patient has E nterococcus faecium in the blood cultures, likely VRE Acute respiratory failure post Gallbladder Surgery. Patient was extubated to nasal cannula on 02/26/2024, currently on 2 L of oxygen by nasal cannula Previous history of CVA History of hypertension Hyperlipidemia Lewy body dementia with Parkinson disease at baseline with significant motor rigidity and cognitive impairment. Acute on chronic blood loss anemia, expected outcome of surgery and will monitor the hemoglobin and the output from the BRADLEY drain. General surgery is on the case. Plan The patient is significantly impaired neurologically and there is impairment of cognitive function and motor functions. He would not be able to swallow. Keep the NG tube in place for enteral feeding nutritional support Transfuse 1 unit of packed RBC and repeat the hemoglobin Currently on 2 L of oxygen by nasal cannula Continue IV fluids lactated Ringer to 75 cc an hour Continue Zosyn and daptomycin for now Monitor the blood pressure utilize Levophed as needed, currently off pressors Monitor the output from the BRADLEY drain, output is being monitored closely and will also monitor the hemoglobin Will resume Aricept Seroquel once NG tube is inserted. He will also need his Keppra IV Protonix Lovenox on hold on SCD only to prophylax the patient for DVT. 4
--- NOTE | 2024-02-28 14:25 | P.PN ---
Subjective Progress Note Date: 02/28/24 Hospital Course: Patient is a very pleasant 68-year-old male with a past medical history of hyp ertension, hyperlipidemia, CVA, insulin-dependent diabetes mellitus, Lewy body dementia, Parkinson's disease, and obstructive sleep apnea. He presented to the emergency department 02/22/2024 with a chief complaint of chest pain. Altered facility, patient evaluation emergency department. Vital signs upon arrival show blood pressure 138/79, heart rate 90, respiratory rate 19, temperature 98.4 F, and SpO2 98% on room air. EKG showing normal sinus rhythm at 91 bpm with right bundle branch block. Chest x-ray completed negative for acute cardiopulmonary process. Labs completed and reviewed. CBC showing leukocytosis with WBC count of 14.7 otherwise normal findings. Coagulation profile showing elevated PT of 12.9, INR of 1.2, and D-dimer of 1.93. BMP unremarkable with exception of mild hyperglycemia with glucose of 179. Liver profile showing hyperbilirubinemia with elevated transaminases with total bili of 2.2, AST of 224, and alkaline phosphatase of 233. Troponin was negative at less than 0.012. CTA chest completed negative for PE. Patient was admitted under our services with consultation to cardiology. Gallbladder ultrasound was ordered and results reviewed. Radiologist reporting findings concerning for acute cholecystitis with distended gallbladder, wall thickening with pericholecystic fluid and tumefactive sludge. Consult placed to general surgeon. Patient underwent cholecystectomy. Procedure complicated by significant blood loss. Patient was subsequently moved to medical ICU for further recovery. Blood cultures 1 out of 2 growing Enterococcus, likely VRE. ID also following. Patient currently in medical ICU. Now extubated. Hemoglobin relatively stable. Out of the ICU, on [facility] floors. Still having further drop in hemoglobin. Subjective: Seen and examined at bedside. No acute events overnight. Has adequate urine output, Fernandes catheter in place. Patient is still somewhat drowsy. Has an NG tube in place. No bowel movements. Drain in place. Pertinent positives and negatives as discussed above, a complete review of systems was performed and all other systems are negative. Vitals Signs Reviewed. General: Not in acute distress Derm: Warm, dry Head: Atraumatic, normocephalic, symmetric Eyes: EOMI, pupils equal and reactive, anicteric sclera Mouth: No lip lesion, mucus membranes moist Cardiovascular: S1S2 reg, no murmur Lungs: CTA bilateral, no rhonchi, no rales, no accessory muscle use, supplemental oxygen Abdominal: Soft, nontender to palpation, abdominal binder in place, BRADLEY drain in place Ext: No gross muscle atrophy, no edema, no contractures Neuro: Drowsy, CN II to XII grossly normal Psych: Drowsy, cooperative Data Reviewed Today: Pertinent Labs: WBC 11.1, hemoglobin 6.3, sodium 136, creatinine 0.76, magnesium 1.9, blood sugars range between 1 31-1 59 Imaging: Chest x-ray independently interpreted, right pleural effusion, NG tube in place. Assessment and Plan: Active: Acute cholecystitis status postcholecystectomy VRE bacteremia Acute encephalopathy Leukocytosis, reactive Acute blood loss anemia, intraoperatively status post 2 units of PRBCs, and 1 unit of platelets Continued blood loss anemia, receiving another 1 unit of PRBCs Hemorrhagic shock, resolved Ventilator dependent respiratory failure, resolved Right pleural effusion suspected Transaminitis, resolved Hypomagnesemia, resolved -Getting transfused 1 unit PRBCs -ID following, patient currently on IV daptomycin 500 mg every 24 hours, IV Zosyn 3.375 g every 8 hours -Pulmonology note reviewed, continue LR at 75 cc an hour, continue current manag ement -Surgery following -Plavix on hold, continued on aspirin -Consider repeating CT abdomen pelvis if hemoglobin continues to downtrend -IV Protonix 40 daily -Reticulocyte count, LDH, haptoglobin, iron studies ordered Insulin-dependent diabetes -Sliding scale insulin, every 6 hours, monitor for hypoglycemia Chronic: Lewy body dementia, Parkinson's disease Depression History of CVA History of hypertension Dyslipidemia RONNELL DVT ppx: Hold Code status: Full code Anticipated discharge place: Pending clinical course Anticipated discharge time: Pending clinical course Objective - Vital Signs Vital signs: Vital Signs Temp 98.8 F 02/28/24 09:51 Pulse 80 02/28/24 09:51 Resp 16 02/28/24 09:51 BP 111/59 02/28/24 09:51 Pulse Ox 97 02/28/24 09:51 FiO2 30 02/26/24 15:10 Intake & Output 02/27/24 02/28/24 02/28/24 18:59 06:59 18:59 Intake Total 1398 0 310 Output Total 432 10 Balance 966 0 300 Weight 93.3 kg 95.5 kg Intake: IV 1268 [place] 18 DAPTOmycin 500 mg In 50 Sodium Chloride 0.9% 50 ml @ 100 mls/hr IVPB Q24HR [facility] Rx#:[id number] Lactated Ringers 1,000 ml 1000 @ 75 mls/hr IV .[id number] [facility] Rx#:[id number] Piperacillin-Tazobactam 3 200 .375 gm In Sodium Chloride 0.9% 100 ml @ 25 mls/hr IVPB Q8HR [facility] Rx# :[id number] Tube Feeding 70 Blood Product 0 310 Rc As-1 Unit 0 310 [id number] Other 60 Output: Drainage 55 10 Right Abdomen 55 10 Urine 377 Other: Voiding Method Indwelling Catheter Indwelling Catheter Indwelling Catheter ABP, PAP, CO, CI - Last Documented Arterial Blood Pressure 117/42 - Labs CBC & Chem 7: 02/28/24 03:23 02/28/24 03:23 Labs: Abnormal Lab Results - Last 24 Hours (Table) 02/27/24 02/28/24 02/28/24 Range/Units 16:21 00:40 03:23 WBC 11.1 H (3.8-10.6) k/uL RBC 2.18 L (4.30-5.90) m/uL Hgb 6.3 L* (13.0-17.5) gm/dL Hct 19.5 L* (39.0-53.0) % Sodium (137-145) mmol/L Chloride (98-107) mmol/L BUN (9-20) mg/dL Glucose (74-99) mg/dL POC Glucose (mg/dL) 128 H 159 H (70-110) mg/dL Calcium (8.4-10.2) mg/dL Urine Protein (Negative) Urine Glucose (UA) (Negative) Urine Blood (Negative) Urine Bacteria (None) /hpf Urine Mucus (None) /hpf Crossmatch 02/28/24 02/28/24 02/28/24 Range/Units 03:23 04:40 05:31 WBC (3.8-10.6) k/uL RBC (4.30-5.90) m/uL Hgb (13.0-17.5) gm/dL Hct (39.0-53.0) % Sodium 136 L (137-145) mmol/L Chloride 108 H (98-107) mmol/L BUN 21 H (9-20) mg/dL Glucose 131 H (74-99) mg/dL POC Glucose (mg/dL) 151 H (70-110) mg/dL Calcium 7.3 L (8.4-10.2) mg/dL Urine Protein (Negative) Urine Glucose (UA) (Negative) Urine Blood (Negative) Urine Bacteria (None) /hpf Urine Mucus (None) /hpf Crossmatch See Detail 02/28/24 02/28/24 Range/Units 06:55 11:39 WBC (3.8-10.6) k/uL RBC (4.30-5.90) m/uL Hgb (13.0-17.5) gm/dL Hct (39.0-53.0) % Sodium (137-145) mmol/L Chloride (98-107) mmol/L BUN (9-20) mg/dL Glucose (74-99) mg/dL POC Glucose (mg/dL) 141 H (70-110) mg/dL Calcium (8.4-10.2) mg/dL Urine Protein Trace H (Negative) Urine Glucose (UA) Trace H (Negative) Urine Blood Trace H (Negative) Urine Bacteria Rare H (None) /hpf Urine Mucus Rare H (None) /hpf Crossmatch Microbiology - Last 24 Hours (Table) 02/27/24 03:05 Blood Culture - Preliminary Blood 02/26/24 03:58 Blood Culture - Preliminary Blood 02/25/24 07:21 Blood Culture - Preliminary Blood
--- NOTE | 2024-02-28 14:53 | P.PN ---
Subjective Progress Note Date: 02/28/24 CHIEF COMPLAINT: Cholecystitis HISTORY OF PRESENT ILLNESS: The patient is a 68-year-old male admitted with atypical chest pain and findings of acute cholecystitis. He is status post laparoscopic converted to open 02/24/2024. He has been transferred from the intensive care unit to [facility] care now on the regular floor. His sister is at bedside. He had moderate decline in his hemoglobin from 8.4 down to 6.2. He has been given blood. Incidentally patient had been on aspirin and blood thinners immediately after surgery. ROS: No reports of nausea and vomiting. No bowel movements. No fevers or chi lls. PHYSICAL EXAM: VITAL SIGNS: Reviewed CONSTITUTIONAL: Well developed and in no acute distress. Diaphoretic. EYES: Conjuctivae without sclera icterus. Extraocular movements grossly intact. HEAD, EARS, NOSE, THROAT: Moist buccal mucosa. Head is atraumatic, normocephalic. Hears conversational speech. No nasal drainage. Poor dentition. RESPIRATORY: Non-labored respirations and equal bilateral excursions. CARDIOVASCULAR: Palpable 2+ radial pulses. ABDOMEN: Upper abdominal dressing intact. BRADLEY serosanguineous. MUSCULOSKELETAL: No gross deformity of the lower extremities noted. No c lubbing. No cyanosis. SKIN: Good skin turgor. Well perfused. NEUROLOGIC: No focal or lateralizing signs. PSYCH: Depressed, sedated. CLINICAL LABS: Reviewed. Hemoglobin down 8.4-6.3 ASSESSMENT: 1. Acute cholecystitis 2. Acute respiratory failure status post cholecystectomy 3. Parkinson's disease 4. Anemia 5. Acute blood loss anemia due to blood thinners PLAN: 1. Agree with blood transfusion at this time due to pre-existing comorbidities. 2. Continue BRADLEY drain 3. Hold advancement of diet at this time 4. I requested that all blood thinners including Lovenox be discontinued due to bleeding. Objective - Vital Signs Vital signs: Vital Signs Temp 98.4 F 02/28/24 14:05 Pulse 75 02/28/24 14:05 Resp 17 02/28/24 14:05 BP 120/63 02/28/24 14:05 Pulse Ox 95 02/28/24 14:05 FiO2 30 02/26/24 15:10 Intake & Output 02/27/24 02/28/24 02/28/24 18:59 06:59 18:59 Intake Total 1398 0 310 Output Total 432 10 Balance 966 0 300 Weight 93.3 kg 95.5 kg Intake: IV 1268 [place] 18 DAPTOmycin 500 mg In 50 Sodium Chloride 0.9% 50 ml @ 100 mls/hr IVPB Q24HR [facility] Rx#:[id number] Lactated Ringers 1,000 ml 1000 @ 75 mls/hr IV .[id number] [facility] Rx#:[id number] Piperacillin-Tazobactam 3 200 .375 gm In Sodium Chloride 0.9% 100 ml @ 25 mls/hr IVPB Q8HR [facility] Rx# :[id number] Tube Feeding 70 Blood Product 0 310 Rc As-1 Unit 0 310 [id number] Other 60 Output: Drainage 55 10 Right Abdomen 55 10 Urine 377 Other: Voiding Method Indwelling Catheter Indwelling Catheter Indwelling Catheter ABP, PAP, CO, CI - Last Documented Arterial Blood Pressure 117/42 - Labs CBC & Chem 7: 02/28/24 03:23 02/28/24 03:23 Labs: Abnormal Lab Results - Last 24 Hours (Table) 02/27/24 02/28/24 02/28/24 Range/Units 16:21 00:40 03:23 WBC 11.1 H (3.8-10.6) k/uL RBC 2.18 L (4.30-5.90) m/uL Hgb 6.3 L* (13.0-17.5) gm/dL Hct 19.5 L* (39.0-53.0) % Sodium (137-145) mmol/L Chloride (98-107) mmol/L BUN (9-20) mg/dL Glucose (74-99) mg/dL POC Glucose (mg/dL) 128 H 159 H (70-110) mg/dL Calcium (8.4-10.2) mg/dL Urine Protein (Negative) Urine Glucose (UA) (Negative) Urine Blood (Negative) Urine Bacteria (None) /hpf Urine Mucus (None) /hpf Crossmatch 02/28/24 02/28/24 02/28/24 Range/Units 03:23 04:40 05:31 WBC (3.8-10.6) k/uL RBC (4.30-5.90) m/uL Hgb (13.0-17.5) gm/dL Hct (39.0-53.0) % Sodium 136 L (137-145) mmol/L Chloride 108 H (98-107) mmol/L BUN 21 H (9-20) mg/dL Glucose 131 H (74-99) mg/dL POC Glucose (mg/dL) 151 H (70-110) mg/dL Calcium 7.3 L (8.4-10.2) mg/dL Urine Protein (Negative) Urine Glucose (UA) (Negative) Urine Blood (Negative) Urine Bacteria (None) /hpf Urine Mucus (None) /hpf Crossmatch See Detail 02/28/24 02/28/24 Range/Units 06:55 11:39 WBC (3.8-10.6) k/uL RBC (4.30-5.90) m/uL Hgb (13.0-17.5) gm/dL Hct (39.0-53.0) % Sodium (137-145) mmol/L Chloride (98-107) mmol/L BUN (9-20) mg/dL Glucose (74-99) mg/dL POC Glucose (mg/dL) 141 H (70-110) mg/dL Calcium (8.4-10.2) mg/dL Urine Protein Trace H (Negative) Urine Glucose (UA) Trace H (Negative) Urine Blood Trace H (Negative) Urine Bacteria Rare H (None) /hpf Urine Mucus Rare H (None) /hpf Crossmatch Microbiology - Last 24 Hours (Table) 02/27/24 03:05 Blood Culture - Preliminary Blood 02/26/24 03:58 Blood Culture - Preliminary Blood 02/25/24 07:21 Blood Culture - Preliminary Blood
--- NOTE | 2024-02-28 15:27 | P.PN ---
Subjective Progress Note Date: 02/28/24 Principal diagnosis: Reason for follow-up is acute cholecystitis and bacteremia Patient is a 68-year-old male with a past medical history significant for diabetes mellitus hypertension sleep apnea CVA TIA Parkinson disease patient was brought into the hospital initially for chest pain has been diagnosed with acute cholecystitis and also have VRE bacteremia. Patient is status post laparoscopic cholecystectomy on 02/24/2024 subsequent requiring admission to the ICU on the ventilator. On today's evaluation that is 02/28/2024, patient did have resolution of his fever and has been afebrile today, patient is breathing comfortably and is currently on 2 L current oxygen patient is currently lethargic and cannot provide any history he did have the NG no vomiting or diarrhea but by the nursing staff. Patient white count is down to 11.1 also hemoglobin hemoglobin is 6.3 creatinine 0.76 urine has been negative blood culture repeat has been negative Objective - Vital Signs Vital signs: Vital Signs Temp 98.4 F 02/28/24 14:05 Pulse 75 02/28/24 14:05 Resp 17 02/28/24 14:05 BP 120/63 02/28/24 14:05 Pulse Ox 95 02/28/24 14:05 FiO2 30 02/26/24 15:10 Intake & Output 02/27/24 02/28/24 02/28/24 18:59 06:59 18:59 Intake Total 1398 0 310 Output Total 432 10 Balance 966 0 300 Weight 93.3 kg 95.5 kg Intake: IV 1268 Sherly 18 DAPTOmycin 500 mg In 50 Sodium Chloride 0.9% 50 ml @ 100 mls/hr IVPB Q24HR BETTE Rx#:[id number] Lactated Ringers 1,000 ml 1000 @ 75 mls/hr IV .[id number] BETTE Rx#:[id number] Piperacillin-Tazobactam 3 200 .375 gm In Sodium Chloride 0.9% 100 ml @ 25 mls/hr IVPB Q8HR BETTE Rx# :[id number] Tube Feeding 70 Blood Product 0 310 Rc As-1 Unit 0 310 [id number] Other 60 Output: Drainage 55 10 Right Abdomen 55 10 Urine 377 Other: Voiding Method Indwelling Catheter Indwelling Catheter Indwelling Catheter ABP, PAP, CO, CI - Last Documented Arterial Blood Pressure 117/42 - Exam GENERAL DESCRIPTION: An elderly male lying in bed in no distress RESPIRATORY SYSTEM: Unlabored breathing , decreased breath sounds at bases HEART: S1 S2 regular rate and rhythm , ABDOMEN: Soft , no tenderness EXTREMITIES: No edema feet - Labs CBC & Chem 7: 02/28/24 03:23 02/28/24 03:23 Labs: Abnormal Lab Results - Last 24 Hours (Table) 02/27/24 02/28/24 02/28/24 Range/Units 16:21 00:40 03:23 WBC 11.1 H (3.8-10.6) k/uL RBC 2.18 L (4.30-5.90) m/uL Hgb 6.3 L* (13.0-17.5) gm/dL Hct 19.5 L* (39.0-53.0) % Sodium (137-145) mmol/L Chloride (98-107) mmol/L BUN (9-20) mg/dL Glucose (74-99) mg/dL POC Glucose (mg/dL) 128 H 159 H (70-110) mg/dL Calcium (8.4-10.2) mg/dL Urine Protein (Negative) Urine Glucose (UA) (Negative) Urine Blood (Negative) Urine Bacteria (None) /hpf Urine Mucus (None) /hpf Crossmatch 02/28/24 02/28/24 02/28/24 Range/Units 03:23 04:40 05:31 WBC (3.8-10.6) k/uL RBC (4.30-5.90) m/uL Hgb (13.0-17.5) gm/dL Hct (39.0-53.0) % Sodium 136 L (137-145) mmol/L Chloride 108 H (98-107) mmol/L BUN 21 H (9-20) mg/dL Glucose 131 H (74-99) mg/dL POC Glucose (mg/dL) 151 H (70-110) mg/dL Calcium 7.3 L (8.4-10.2) mg/dL Urine Protein (Negative) Urine Glucose (UA) (Negative) Urine Blood (Negative) Urine Bacteria (None) /hpf Urine Mucus (None) /hpf Crossmatch See Detail 02/28/24 02/28/24 Range/Units 06:55 11:39 WBC (3.8-10.6) k/uL RBC (4.30-5.90) m/uL Hgb (13.0-17.5) gm/dL Hct (39.0-53.0) % Sodium (137-145) mmol/L Chloride (98-107) mmol/L BUN (9-20) mg/dL Glucose (74-99) mg/dL POC Glucose (mg/dL) 141 H (70-110) mg/dL Calcium (8.4-10.2) mg/dL Urine Protein Trace H (Negative) Urine Glucose (UA) Trace H (Negative) Urine Blood Trace H (Negative) Urine Bacteria Rare H (None) /hpf Urine Mucus Rare H (None) /hpf Crossmatch Microbiology - Last 24 Hours (Table) 02/27/24 03:05 Blood Culture - Preliminary Blood 02/26/24 03:58 Blood Culture - Preliminary Blood 02/25/24 07:21 Blood Culture - Preliminary Blood Assessment and Plan (1) Sepsis Current Visit: Yes Status: Acute Code(s): A41.9 - SEPSIS, UNSPECIFIED ORGANISM SNOMED Code(s): 99281924 (2) Cholecystitis Current Visit: Yes Status: Acute Code(s): K81.9 - CHOLECYSTITIS, UNSPECIFIED SNOMED Code(s): 02999633 (3) VRE bacteremia Current Visit: Yes Status: Acute Code(s): R78.81 - BACTEREMIA; B95.2 - ENTEROCOCCUS THE CAUSE OF DISEASES CLASSIFIED ELSEWHERE; Z16.21 - RESISTANCE TO VANCOMYCIN SNOMED Code(s): 1569926956 (4) Allergy to cephalosporin Current Visit: Yes Status: Acute Code(s): Z88.1 - ALLERGY STATUS TO OTHER ANTIBIOTIC AGENTS SNOMED Code(s): 421604780 Plan: 1patient presented hospital with sepsis in this patient who did have fever elevated white count source is acute cholecystitis usually associated with a gram-negative bacteria and also secondary to Enterococcus 2-VRE bacteremia source could be acute gastritis 3-blood culture has been repeated and so far negative 4-patient did have resolution of his fever white count is trending down and repeat blood culture negative continue with the daptomycin and Zosyn, if further drop in hemoglobin may benefit from CT abdominal pelvis, general surgery following the patient closely Dictation was produced using [employer] dictation software. please excuse any grammatical, word or spelling errors.
[2024-02-28 16:11] LABS: Reticulocyte % 2.4 % (0.5-2.0)
--- NOTE | 2024-02-28 16:15 | XR ---
EXAM: XR chest 1V portable CLINICAL INDICATION:Male, 68 years old with history of follow up - right lung; [facility] COMPARISON: 02/27/2024 TECHNIQUE: Chest single view. FINDINGS: Lines/tubes/devices: NG tube tip and sidehole over the stomach. Cardiomediastinum: Cardiomediastinal silhouette appears mildly enlarged but partially obscured. Vasculature: No increased pulmonary vasculature. Lungs/pleura: There is increased opacity throughout the right lung with slight sparing towards the apex. No evidenc e of significant volume loss such as shift of mediastinal structures.. A probable skin fold projects over the right mid to upper lung. No visualized pneumothorax. Similar small left medial basilar opaci ty likely atelectasis. No new or worsening left lung infiltrate, sizable effusion, or pneumothorax ev ident. Bones/soft tissues: Bony thorax appears grossly unchanged as seen. Degenerative changes of the spine and shoulders. Regio nal soft tissues appear unremarkable. Other: The right hemidiaphragm is obscured. Surgical drain and skin vikash in the right upper quadra nt again noted. Mild gaseous distention of the included stomach. IMPRESSION: Worsening with now near-complete opacification of the right hemithorax. Likely considerations include parenchymal consolidation, atelectasis, and/or pleural effusion.
[2024-02-28 16:44] LABS: Glucose,Whole Blood 131 mg/dL (70-110)
[2024-02-28] MEDS: QUEtiapine 25 MG TAB NG-TUBE SCH (17:42)
[2024-02-28 20:39] LABS: Glucose,Whole Blood 148 mg/dL (70-110)
[2024-02-28 22:29] LABS: % Iron Saturation 9.32 (15.00-50.00)
[2024-02-28] MEDS: ACETAMINOPHEN TAB 325 MG TAB PO PRN (23:59)
[2024-02-29 00:16] LABS: Glucose,Whole Blood 141 mg/dL (70-110)
[2024-02-29 04:22] LABS: Basophils % (A) 0 %; Eosinophils # (A) 0.1 k/uL (0-0.7); Eosinophils % (A) 1 %; HCT 22.6 % (39.0-53.0); HGB 7.1 gm/dL (13.0-17.5); Lymphocytes # (A) 0.7 k/uL (1.0-4.8); Lymphocytes % (A) 7 %; MCH 27.8 pg (25.0-35.0); MCHC 31.5 g/dL (31.0-37.0); MCV 88.3 fL (80.0-100.0); Mean Platelet Volume 7.7; Monocytes # (A) 0.5 k/uL (0-1.0); Monocytes % (A) 4 %; Neutrophils # (A) 9.8 k/uL (1.3-7.7); Neutrophils % (A) 87 %; Platelet Count 240 k/uL (150-450); RBC 2.56 m/uL (4.30-5.90); RDW 15.3 % (11.5-15.5); WBC 11.3 k/uL (3.8-10.6)
[2024-02-29 04:52] LABS: African American GFR (CKD) >90 (>60 ml/min/1.73 sqM); Anion Gap 5 mmol/L; Blood Urea Nitrogen 20 mg/dL (9-20); Calcium 7.3 mg/dL (8.4-10.2); Carbon Dioxide 24 mmol/L (22-30); Chloride 109 mmol/L (98-107); Glucose 140 mg/dL (74-99); Magnesium 1.9 mg/dL (1.6-2.3); Non-African American GFR(CKD) >90 (>60 ml/min/1.73 sqM); Potassium 3.6 mmol/L (3.5-5.1); Sodium 138 mmol/L (137-145)
[2024-02-29 06:19] LABS: Glucose,Whole Blood 155 mg/dL (70-110)
--- NOTE | 2024-02-29 10:52 | US ---
EXAMINATION TYPE: US chest DATE OF EXAM: 02/29/2024 COMPARISON: 02/28/2024 chest x-ray CLINICAL INDICATION: Male, 68 years old with history of Right pleural effusion; Patient is lethargic and unable to respond to questions TECHNIQUE: Targeted ultrasound of the posterior lower right hemithorax EXAM MEASUREMENTS: Right Pleural Effusion pocket size: 3.6 cm Right skin surface to fluid distance: 3.2 cm Right side marked for possible thoracentesis outside the dept. Patient not able to sit up on his own Pulmonologists are able to review the images in the patient?s EMR. IMPRESSIONS: Small to moderate right pleural effusion demonstrated.
[2024-02-29 11:51] LABS: Glucose,Whole Blood 170 mg/dL (70-110)
--- NOTE | 2024-02-29 12:27 | P.PN ---
Subjective Progress Note Date: 02/29/24 Principal diagnosis: Reason for follow-up is acute cholecystitis and bacteremia Patient is a 68-year-old male with a past medical history significant for diabetes mellitus hypertension sleep apnea CVA TIA Parkinson disease patient was brought into the hospital initially for chest pain has been diagnosed with acute cholecystitis and also have VRE bacteremia. Patient is status post laparoscopic cholecystectomy on 02/24/2024 subsequent requiring admission to the ICU on the ventilator. On today's evaluation that is 02/29/2024, Patient did have a low-grade fever 100.5 last night and 100.1 F this morning at 5 AM patient is not tachycardic or hypertensive currently on 2 L current oxygen he is slightly lethargic not a very good historian no vomiting or diarrhea reported by nursing staff. Patient white count is down to 11.3, creatinine 0.79 blood culture repeat has been negative Objective - Vital Signs Vital signs: Vital Signs Temp 99.0 F 02/29/24 07:28 Pulse 83 02/29/24 07:28 Resp 19 02/29/24 07:28 BP 149/76 02/29/24 07:28 Pulse Ox 92 L 02/29/24 07:28 FiO2 30 02/26/24 15:10 Intake & Output 02/28/24 02/29/24 02/29/24 18:59 06:59 18:59 Intake Total 310 1120 Output Total 680 1125 Balance -370 -5 Weight 100 kg Intake: IV 1000 Lactated Ringers 1,000 ml 900 @ 75 mls/hr IV .[id number] BETTE Rx#:[id number] Piperacillin-Tazobactam 3 100 .375 gm In Sodium Chloride 0.9% 100 ml @ 25 mls/hr IVPB Q8HR BETTE Rx# :[id number] Tube Feeding 120 Blood Product 310 Rc As-1 Unit 310 [id number] Output: Drainage 30 25 Right Abdomen 30 25 Urine 650 1100 Other: Voiding Method Indwelling Catheter Indwelling Catheter Indwelling Catheter ABP, PAP, CO, CI - Last Documented Arterial Blood Pressure 117/42 - Exam GENERAL DESCRIPTION: An elderly male lying in bed in no distress RESPIRATORY SYSTEM: Unlabored breathing , decreased breath sounds at bases HEART: S1 S2 regular rate and rhythm , ABDOMEN: Soft , no tenderness EXTREMITIES: No edema feet - Labs CBC & Chem 7: 02/29/24 03:46 02/29/24 03:46 Labs: Abnormal Lab Results - Last 24 Hours (Table) 02/28/24 02/28/24 02/28/24 Range/Units 06:47 14:54 14:54 WBC (3.8-10.6) k/uL RBC (4.30-5.90) m/uL Hgb (13.0-17.5) gm/dL Hct (39.0-53.0) % Neutrophils # (1.3-7.7) k/uL Lymphocytes # (1.0-4.8) k/uL Retic Count 2.4 H (0.5-2.0) % Chloride (98-107) mmol/L Glucose (74-99) mg/dL POC Glucose (mg/dL) (70-110) mg/dL Calcium (8.4-10.2) mg/dL Iron 11 L (65-175) UG/DL TIBC 118 L (228-460) UG/DL % Saturation 9.32 L (15.00-50.00) Transferrin 84.5 L 84.6 L (204.0-354.0) mg/dL 02/28/24 02/28/24 02/29/24 Range/Units 16:42 20:37 00:15 WBC (3.8-10.6) k/uL RBC (4.30-5.90) m/uL Hgb (13.0-17.5) gm/dL Hct (39.0-53.0) % Neutrophils # (1.3-7.7) k/uL Lymphocytes # (1.0-4.8) k/uL Retic Count (0.5-2.0) % Chloride (98-107) mmol/L Glucose (74-99) mg/dL POC Glucose (mg/dL) 131 H 148 H 141 H (70-110) mg/dL Calcium (8.4-10.2) mg/dL Iron (65-175) UG/DL TIBC (228-460) UG/DL % Saturation (15.00-50.00) Transferrin (204.0-354.0) mg/dL 02/29/24 02/29/24 02/29/24 Range/Units 03:46 03:46 06:18 WBC 11.3 H (3.8-10.6) k/uL RBC 2.56 L (4.30-5.90) m/uL Hgb 7.1 L (13.0-17.5) gm/dL Hct 22.6 L (39.0-53.0) % Neutrophils # 9.8 H (1.3-7.7) k/uL Lymphocytes # 0.7 L (1.0-4.8) k/uL Retic Count (0.5-2.0) % Chloride 109 H (98-107) mmol/L Glucose 140 H (74-99) mg/dL POC Glucose (mg/dL) 155 H (70-110) mg/dL Calcium 7.3 L (8.4-10.2) mg/dL Iron (65-175) UG/DL TIBC (228-460) UG/DL % Saturation (15.00-50.00) Transferrin (204.0-354.0) mg/dL 02/29/24 Range/Units 11:49 WBC (3.8-10.6) k/uL RBC (4.30-5.90) m/uL Hgb (13.0-17.5) gm/dL Hct (39.0-53.0) % Neutrophils # (1.3-7.7) k/uL Lymphocytes # (1.0-4.8) k/uL Retic Count (0.5-2.0) % Chloride (98-107) mmol/L Glucose (74-99) mg/dL POC Glucose (mg/dL) 170 H (70-110) mg/dL Calcium (8.4-10.2) mg/dL Iron (65-175) UG/DL TIBC (228-460) UG/DL % Saturation (15.00-50.00) Transferrin (204.0-354.0) mg/dL Microbiology - Last 24 Hours (Table) 02/25/24 07:21 Blood Culture - Preliminary Blood 02/23/24 11:40 Blood Culture - Final Blood 02/27/24 03:05 Blood Culture - Preliminary Blood 02/26/24 03:58 Blood Culture - Preliminary Blood Assessment and Plan (1) Sepsis Current Visit: Yes Status: Acute Code(s): A41.9 - SEPSIS, UNSPECIFIED ORGANISM SNOMED Code(s): 47728167 (2) Cholecystitis Current Visit: Yes Status: Acute Code(s): K81.9 - CHOLECYSTITIS, UNSPECIFIED SNOMED Code(s): 95464563 (3) VRE bacteremia Current Visit: Yes Status: Acute Code(s): R78.81 - BACTEREMIA; B95.2 - ENTEROCOCCUS THE CAUSE OF DISEASES CLASSIFIED ELSEWHERE; Z16.21 - RESISTANCE TO VANCOMYCIN SNOMED Code(s): 9296420954 (4) Allergy to cephalosporin Current Visit: Yes Status: Acute Code(s): Z88.1 - ALLERGY STATUS TO OTHER ANTIBIOTIC AGENTS SNOMED Code(s): 504009001 Plan: 1patient [facility] hospital with sepsis in this patient who did have fever elevated white count source is acute cholecystitis usually associated with a gram-negative bacteria and also secondary to Enterococcus 2-VRE bacteremia source could be acute gastritis 3-blood culture has been repeated and so far negative 4-patient did have a low-grade fever however the patient white count is trending down repeat blood culture has been negative continue with Zosyn and daptomycin and monitor clinical course closely Dictation was produced using [email or web address] dictation software. please excuse any grammatical, word or spelling errors.
--- NOTE | 2024-02-29 13:23 | P.PN ---
Subjective Progress Note Date: 02/29/24 Hospital Course: Patient is a very pleasant 68-year-old male with a past medical history of hyp ertension, hyperlipidemia, CVA, insulin-dependent diabetes mellitus, Lewy body dementia, Parkinson's disease, and obstructive sleep apnea. He presented to the emergency department 02/22/2024 with a chief complaint of chest pain. Altered facility, patient evaluation emergency department. Vital signs upon arrival show blood pressure 138/79, heart rate 90, respiratory rate 19, temperature 98.4 F, and SpO2 98% on room air. EKG showing normal sinus rhythm at 91 bpm with right bundle branch block. Chest x-ray completed negative for acute cardiopulmonary process. Labs completed and reviewed. CBC showing leukocytosis with WBC count of 14.7 otherwise normal findings. Coagulation profile showing elevated PT of 12.9, INR of 1.2, and D-dimer of 1.93. BMP unremarkable with exception of mild hyperglycemia with glucose of 179. Liver profile showing hyperbilirubinemia with elevated transaminases with total bili of 2.2, AST of 224, and alkaline phosphatase of 233. Troponin was negative at less than 0.012. CTA chest completed negative for PE. Patient was admitted under our services with consultation to cardiology. Gallbladder ultrasound was ordered and results reviewed. Radiologist reporting findings concerning for acute cholecystitis with distended gallbladder, wall thickening with pericholecystic fluid and tumefactive sludge. Consult placed to general surgeon. Patient underwent cholecystectomy. Procedure complicated by significant blood loss. Patient was subsequently moved to medical ICU for further recovery. Blood cultures 1 out of 2 growing Enterococcus, likely VRE. ID also following. Patient currently in medical ICU. Now extubated. Hemoglobin relatively stable. Out of the ICU, on [facility] floors. Still having further drop in hemoglobin. Subjective: Seen and examined at bedside. No acute events overnight. Has adequate urine output, Fernandes catheter in place. Patient is still somewhat drowsy. Has an NG tube in place, which she pulled out. No bowel movements. Drain in place. Pertinent positives and negatives as discussed above, a complete review of systems was performed and all other systems are negative. Vitals Signs Reviewed. General: Not in acute distress Derm: Warm, dry Head: Atraumatic, normocephalic, symmetric Eyes: EOMI, pupils equal and reactive, anicteric sclera Mouth: No lip lesion, mucus membranes moist Cardiovascular: S1S2 reg, no murmur Lungs: CTA bilateral, no rhonchi, no rales, no accessory muscle use, supplemental oxygen Abdominal: Soft, nontender to palpation, abdominal binder in place, BRADLEY drain in place Ext: No gross muscle atrophy, no edema, no contractures Neuro: Drowsy, CN II to XII grossly normal, oriented x 1 Psych: Drowsy, cooperative Data Reviewed Today: Pertinent Labs: WBC 11.3, hemoglobin 7.1, sodium 138, potassium 3.6, creatinine 0.79, magnesium 1.9, blood sugars range between 1 40-1 70 Imaging: Chest ultrasound shows small to moderate right pleural effusion Assessment and Plan: Active: Acute cholecystitis status postcholecystectomy VRE bacteremia Acute encephalopathy, likely metabolic versus septic Leukocytosis, reactive Acute blood loss anemia, intraoperatively status post 3 units of PRBCs, and 1 unit of platelets Iron deficiency anemia Hemorrhagic shock, resolved Ventilator dependent respiratory failure, resolved Right pleural effusion Transaminitis, resolved Hypomagnesemia, resolved -ID note reviewed, patient currently on IV daptomycin 500 mg every 24 hours, IV Zosyn 3.375 g every 8 hours, still patient having low-grade fevers -Pulmonology following, continue LR at 75 cc an hour, continue current management, consider thoracentesis -Surgery following -Plavix on hold, continued on aspirin -Consider repeating CT abdomen pelvis if hemoglobin continues to downtrend -IV Protonix 40 daily -Absolute reticulocyte count was 1.1, some hypoproliferation -Also has iron deficiency anemia -Avoid IV iron given active infection -Patient may need further blood transfusions if hemoglobin less than 7 -Patient pulled out his NG tube, speech therapy consult, patient does not want to get another NG tube Insulin-dependent diabetes -Sliding scale insulin, every 6 hours, monitor for hypoglycemia Chronic: Lewy body dementia, Parkinson's disease Depression History of CVA History of hypertension Dyslipidemia RONNELL DVT ppx: SCDs Code status: Full code Anticipated discharge place: Pending clinical course Anticipated discharge time: Pending clinical course Objective - Vital Signs Vital signs: Vital Signs Temp 99.0 F 02/29/24 07:28 Pulse 83 02/29/24 07:28 Resp 19 02/29/24 07:28 BP 149/76 02/29/24 07:28 Pulse Ox 92 L 02/29/24 07:28 FiO2 30 02/26/24 15:10 Intake & Output 02/28/24 02/29/24 02/29/24 18:59 06:59 18:59 Intake Total 310 1120 Output Total 680 1125 Balance -370 -5 Weight 100 kg Intake: IV 1000 Lactated Ringers 1,000 ml 900 @ 75 mls/hr IV .[id number] BETTE Rx#:[id number] Piperacillin-Tazobactam 3 100 .375 gm In Sodium Chloride 0.9% 100 ml @ 25 mls/hr IVPB Q8HR BETTE Rx# :[id number] Tube Feeding 120 Blood Product 310 Rc As-1 Unit 310 [id number] Output: Drainage 30 25 Right Abdomen 30 25 Urine 650 1100 Other: Voiding Method Indwelling Catheter Indwelling Catheter Indwelling Catheter ABP, PAP, CO, CI - Last Documented Arterial Blood Pressure 117/42 - Labs CBC & Chem 7: 02/29/24 03:46 02/29/24 03:46 Labs: Abnormal Lab Results - Last 24 Hours (Table) 02/28/24 02/28/24 02/28/24 Range/Units 06:47 14:54 14:54 WBC (3.8-10.6) k/uL RBC (4.30-5.90) m/uL Hgb (13.0-17.5) gm/dL Hct (39.0-53.0) % Neutrophils # (1.3-7.7) k/uL Lymphocytes # (1.0-4.8) k/uL Retic Count 2.4 H (0.5-2.0) % Chloride (98-107) mmol/L Glucose (74-99) mg/dL POC Glucose (mg/dL) (70-110) mg/dL Calcium (8.4-10.2) mg/dL Iron 11 L (65-175) UG/DL TIBC 118 L (228-460) UG/DL % Saturation 9.32 L (15.00-50.00) Transferrin 84.5 L 84.6 L (204.0-354.0) mg/dL 02/28/24 02/28/24 02/29/24 Range/Units 16:42 20:37 00:15 WBC (3.8-10.6) k/uL RBC (4.30-5.90) m/uL Hgb (13.0-17.5) gm/dL Hct (39.0-53.0) % Neutrophils # (1.3-7.7) k/uL Lymphocytes # (1.0-4.8) k/uL Retic Count (0.5-2.0) % Chloride (98-107) mmol/L Glucose (74-99) mg/dL POC Glucose (mg/dL) 131 H 148 H 141 H (70-110) mg/dL Calcium (8.4-10.2) mg/dL Iron (65-175) UG/DL TIBC (228-460) UG/DL % Saturation (15.00-50.00) Transferrin (204.0-354.0) mg/dL 02/29/24 02/29/24 02/29/24 Range/Units 03:46 03:46 06:18 WBC 11.3 H (3.8-10.6) k/uL RBC 2.56 L (4.30-5.90) m/uL Hgb 7.1 L (13.0-17.5) gm/dL Hct 22.6 L (39.0-53.0) % Neutrophils # 9.8 H (1.3-7.7) k/uL Lymphocytes # 0.7 L (1.0-4.8) k/uL Retic Count (0.5-2.0) % Chloride 109 H (98-107) mmol/L Glucose 140 H (74-99) mg/dL POC Glucose (mg/dL) 155 H (70-110) mg/dL Calcium 7.3 L (8.4-10.2) mg/dL Iron (65-175) UG/DL TIBC (228-460) UG/DL % Saturation (15.00-50.00) Transferrin (204.0-354.0) mg/dL 02/29/24 Range/Units 11:49 WBC (3.8-10.6) k/uL RBC (4.30-5.90) m/uL Hgb (13.0-17.5) gm/dL Hct (39.0-53.0) % Neutrophils # (1.3-7.7) k/uL Lymphocytes # (1.0-4.8) k/uL Retic Count (0.5-2.0) % Chloride (98-107) mmol/L Glucose (74-99) mg/dL POC Glucose (mg/dL) 170 H (70-110) mg/dL Calcium (8.4-10.2) mg/dL Iron (65-175) UG/DL TIBC (228-460) UG/DL % Saturation (15.00-50.00) Transferrin (204.0-354.0) mg/dL Microbiology - Last 24 Hours (Table) 02/27/24 03:05 Blood Culture - Preliminary Blood 02/26/24 03:58 Blood Culture - Preliminary Blood 02/25/24 07:21 Blood Culture - Preliminary Blood 02/23/24 11:40 Blood Culture - Final Blood
--- NOTE | 2024-02-29 14:10 | P.PN ---
Subjective Progress Note Date: 02/29/24 This is a 68-year-old male patient who is currently intubated on mechanical ventilator. The patient was taken to the operating room for acute cholecystitis and bacteremia. The patient was found to have severe acute cholecystitis and the patient was initially supposed to have a laparoscopic cholecystectomy and this was converted to an open procedure. The patient was found to have significant adhesions. The gallbladder was taken out. The patient encountered bleeding and estimated blood loss was in the order of 1000 cc. The patient accordingly was given a total of 1.5 L of crystalloid in the operating room, 1 unit of packed RBC, a total of 1000 cc of albumin. Output from the BRADLEY drain is minimal at this point in time. The patient is currently on propofol running at 15 mcg/kg/min. He is on assist-control mode of mechanical ventilation at a rate of 16, tidal volume of 400, FiO2 40% with a PEEP of 5. The blood pressure was soft in the ICU and the patient was given additional liter of lactated Ringer. Blood gas showed a pH of 7.38 with a pCO2 of 40 and pO2 of more than 420. FiO2 was dropped accordingly. Chest x-ray shows borderline heart size and some atelectatic change in the left midlung. The patient's blood culture showing Enterococcus faecium and based on that the patient was kept on a combination of Zosyn and daptomycin. No pressors for now. Note that the patient is known to have previous history of CVA. He has insulin-dependent diabetes mellitus and hypertension hyperlipidemia and Lewy body dementia and Parkinson's disease. He has also history of obstructive sleep apnea. His gallbladder ultrasound that was done at the time of admission showed acute cholecystitis with distended gallbladder wall thickening and the CT of the chest that was done on 02/23/2024 showed no evidence of any pulmonary embolism. The lungs were essentially clear from any acute pulmonary filtration. On 02/25/2024, the patient remains intubated on the mechanical ventilator. No significant events overnight. The patient is postop day #1 following an open cholecystectomy. Output from the BRADLEY drain is minimal at this point in time. The patient is currently on propofol which is running at 20 mcg/kg/min. He remains on assist-control mode of mechanical ventilation at rate of 60, tidal volume of 450, FiO2 of 30% with a PEEP of 5. Blood gas showed a pH of 7.41 with a pCO2 of 42 and pO2 of 155. The patient was given a total of 2 units of packed RBC postop. He was also given a unit of platelets. No active bleeding. Remains on lactated Ringer at rate of 125 cc an hour. Remains NPO. No pressors for now and the norepinephrine has been discontinued. The white cell count of 12.2 with a hemoglobin 9.8 and a platelet count of 201. BUN is 22 with a creatinine 0.9 and his sodium level is 136. AST is 196, ALT is 139 with an alkaline phosphatase of 115. Cultures positive for Enterococcus faecium and the patient remains on a combination of Zosyn and daptomycin. Afebrile. He modynamically stable at this point in time. 02/26/2024, the patient is quite lethargic, sleepy, rigid, slightly responsive to verbal stimulation. He grimaces to painful stimulation. To my understanding, the patient has significant Lewy body dementia with chronic rigidity and cognitive impairment. The patient remains on the mechanical ventilator. Off sedation. Currently on assist-control mode with rate of 16, tidal volume of 400 and FiO2 of 30% with a PEEP of 5. The blood gas from today shows a pH of 7.48 with a pCO2 of 38 and pO2 of 87. Chest x-ray from today shows patchy opacity in the right lung base/atelectasis. Orogastric and orotracheal tube are both in place. The patient is hemodynamically stable. The patient is afebrile. The patient on lactated Ringer at rate of 125 cc an hour. BRADLEY drain output is serous. The LFTs are essentially within normal limits. Sodium is at 136, BUN is 20 with a creatinine of 0.8 and a potassium levels of 3.8. The white cell count 11.2 with a hemoglobin 8.4 and a platelet count of 146. Remains on Zosyn and daptomycin. No other significant events overnight. 02/27/2024, the patient is extubated and the patient is currently on 2 L of oxygen by nasal cannula. Significant neurologic impairment and cognitive impairment and rigidity. Does not communicate. Does not follow any simple commands. Unable to swallow. Respiratory status is stable. Hemodynamically stable. Repeat chest x-ray was done today and the patient was found to have some right- sided atelectasis and small right-sided pleural effusion. Abdomen is nondistended. Surgical wound site is dry clean and intact. BRADLEY drain is in place. Output overnight was elevated and the patient produced approximately 490 cc over the past 8 hours and currently the output is down to 5 to 10 cc an hour. Output is somewhat bloody/serosanguineous. Remains on lactated Ringer at 125 cc an hour. No pressors. Remains on Zosyn and vancomycin. Hemoglobin is down to 7.3 with a white cell count of 13.2. Electrolytes are all within normal limits. Afebrile. 02/28/2024, the patient is being seen for a follow-up. The patient got transferred out of the intensive care unit yesterday after being extubated. For now, the patient has an NG tube placed and the patient is sleeping Glucerna for enteral feeding and nutritional support. The abdominal scar is dry clean and intact. BRADLEY drain is in place and the output is in the order of 10 cc an hour. Hemoglobin has dropped down to 6.3 and the patient will receive another unit of packed RBC. No evidence of any GI bleeding at this point in time. No coffee- ground emesis. Hemodynamically stable. Neurologic status is unchanged and the patient has significant neurologic impairment due to his Lewy body dementia. The white cell count 11, hemoglobin is 6.3 and a platelet count of 195, BUN is 21 with a creatinine of 0.7. Stable 2 L of oxygen by nasal cannula with a pulse ox of 98%. The patient is postop day #4 following an open cholecystectomy. The patient is seen today February 29, 2024 in follow-up on the regular medical floor. He is currently sitting up in bed. Awake and alert in no acute distress. Maintaining O2 saturation in the 90s on 2 L/min per nasal cannula. Nasogastric tube remains in place. He is being nourished with Glucerna at 60 MLS per hour. He has lactated Ringer's at 75 MLS per hour. BRADLEY drain remains in place. Abdominal dressing is dry and intact. Blood cultures were positive for Enterococcus faecium VRE. Follow-up blood cultures revealing no growth. White count 11.3. Hemoglobin 7.1. Platelets 240. Sodium 138. Potassium 3.6. Bicarb 24. BUN 20. Creatinine 0.79. Glucose 140. He remains on daptomycin and Zosyn. Chest x-ray reveals evidence of a right pleural effusion. Ultrasound today reveals only a 3.6 cm pocket. He is status post 3 units of packed red blood cells and 1 unit of platelets this admission. Objective - Vital Signs Vital signs: Vital Signs Temp 99.0 F 02/29/24 07:28 Pulse 83 02/29/24 07:28 Resp 19 02/29/24 07:28 BP 149/76 02/29/24 07:28 Pulse Ox 92 L 02/29/24 07:28 FiO2 30 02/26/24 15:10 Intake & Output 02/28/24 02/29/24 02/29/24 18:59 06:59 18:59 Intake Total 310 1120 Output Total 680 1125 Balance -370 -5 Weight 100 kg Intake: IV 1000 Lactated Ringers 1,000 ml 900 @ 75 mls/hr IV .[id number] [facility] Rx#:[id number] Piperacillin-Tazobactam 3 100 .375 gm In Sodium Chloride 0.9% 100 ml @ 25 mls/hr IVPB Q8HR [facility]TE Rx# :[id number] Tube Feeding 120 Blood Product 310 Rc As-1 Unit 310 [id number] Output: Drainage 30 25 Right Abdomen 30 25 Urine 650 1100 Other: Voiding Method Indwelling Catheter Indwelling Catheter Indwelling Catheter ABP, PAP, CO, CI - Last Documented Arterial Blood Pressure 117/42 - Exam GENERAL EXAM: Alert, cognitively impaired, 68-year-old male patient, on 2 L nasal cannula, fairly comfortable in no apparent distress. HEAD: Normocephalic. EYES: Normal reaction of pupils, equal size. NOSE: Place. Clear with pink turbinates. THROAT: No erythema or exudates. NECK: No masses, no JVD. CHEST: No chest wall deformity. LUNGS: Equal air entry with no crackles, wheeze, rhonchi or dullness. CVS: S1 and S2 normal with no audible murmur, regular rhythm. ABDOMEN: Surgical incision clean dry and well-approximated. BRADLEY drain remains in place. SPINE: No scoliosis or deformity SKIN: No rashes CENTRAL NERVOUS SYSTEM: Cognitively impaired, tone is normal in all 4 extremities. EXTREMITIES: There is no peripheral edema. No clubbing, no cyanosis. Peripheral pulses are intact. - Labs CBC & Chem 7: 02/29/24 03:46 02/29/24 03:46 Labs: Abnormal Lab Results - Last 24 Hours (Table) 02/28/24 02/28/24 02/28/24 Range/Units 06:47 14:54 14:54 WBC (3.8-10.6) k/uL RBC (4.30-5.90) m/uL Hgb (13.0-17.5) gm/dL Hct (39.0-53.0) % Neutrophils # (1.3-7.7) k/uL Lymphocytes # (1.0-4.8) k/uL Retic Count 2.4 H (0.5-2.0) % Chloride (98-107) mmol/L Glucose (74-99) mg/dL POC Glucose (mg/dL) (70-110) mg/dL Calcium (8.4-10.2) mg/dL Iron 11 L (65-175) UG/DL TIBC 118 L (228-460) UG/DL % Saturation 9.32 L (15.00-50.00) Transferrin 84.5 L 84.6 L (204.0-354.0) mg/dL 02/28/24 02/28/24 02/29/24 Range/Units 16:42 20:37 00:15 WBC (3.8-10.6) k/uL RBC (4.30-5.90) m/uL Hgb (13.0-17.5) gm/dL Hct (39.0-53.0) % Neutrophils # (1.3-7.7) k/uL Lymphocytes # (1.0-4.8) k/uL Retic Count (0.5-2.0) % Chloride (98-107) mmol/L Glucose (74-99) mg/dL POC Glucose (mg/dL) 131 H 148 H 141 H (70-110) mg/dL Calcium (8.4-10.2) mg/dL Iron (65-175) UG/DL TIBC (228-460) UG/DL % Saturation (15.00-50.00) Transferrin (204.0-354.0) mg/dL 02/29/24 02/29/24 02/29/24 Range/Units 03:46 03:46 06:18 WBC 11.3 H (3.8-10.6) k/uL RBC 2.56 L (4.30-5.90) m/uL Hgb 7.1 L (13.0-17.5) gm/dL Hct 22.6 L (39.0-53.0) % Neutrophils # 9.8 H (1.3-7.7) k/uL Lymphocytes # 0.7 L (1.0-4.8) k/uL Retic Count (0.5-2.0) % Chloride 109 H (98-107) mmol/L Glucose 140 H (74-99) mg/dL POC Glucose (mg/dL) 155 H (70-110) mg/dL Calcium 7.3 L (8.4-10.2) mg/dL Iron (65-175) UG/DL TIBC (228-460) UG/DL % Saturation (15.00-50.00) Transferrin (204.0-354.0) mg/dL 02/29/24 Range/Units 11:49 WBC (3.8-10.6) k/uL RBC (4.30-5.90) m/uL Hgb (13.0-17.5) gm/dL Hct (39.0-53.0) % Neutrophils # (1.3-7.7) k/uL Lymphocytes # (1.0-4.8) k/uL Retic Count (0.5-2.0) % Chloride (98-107) mmol/L Glucose (74-99) mg/dL POC Glucose (mg/dL) 170 H (70-110) mg/dL Calcium (8.4-10.2) mg/dL Iron (65-175) UG/DL TIBC (228-460) UG/DL % Saturation (15.00-50.00) Transferrin (204.0-354.0) mg/dL Microbiology - Last 24 Hours (Table) 02/27/24 03:05 Blood Culture - Preliminary Blood 02/26/24 03:58 Blood Culture - Preliminary Blood 02/25/24 07:21 Blood Culture - Preliminary Blood 02/23/24 11:40 Blood Culture - Final Blood Assessment and Plan Assessment: Acute cholecystitis and the patient underwent an open cholecystectomy. The patient is currently postop day #5. Significant blood loss intraoperatively and the patient was sedated with fluids, colloids/albumin and received 3 units of packed RBC and one platelets. Off the mechanical ventilator and on 2 L of oxygen by nasal cannula. Current hemoglobin 7.1. No evidence of any acute bleeding and the output from the BRADLEY drain is minimal at this point in time. Acute enterococcal septicemia secondary to cholecystitis and the patient is cu rrently on a combination of daptomycin and Zosyn. The patient has Enterococcus faecium VRE in the blood cultures Acute respiratory failure post Gallbladder Surgery. Patient was extubated to nasal cannula on 02/26/2024, currently on 2 L of oxygen by nasal cannula Previous history of CVA History of hypertension Hyperlipidemia Lewy body dementia with Parkinson disease at baseline with significant motor rigidity and cognitive impairment. Acute on chronic blood loss anemia, expected outcome of surgery and will monitor the hemoglobin and the output from the BRADLEY drain. Plan: The patient was seen and evaluated Labs and medications reviewed Titrate down the FiO2 as tolerated Continue antibiotics per ID service Continue bronchodilators Continue tube feedings for nutritional support We will continue to follow I have personally seen and examined the patient, performed the documentation and the assessment and plan as written. Number of minutes spent on the visit: 10.
--- NOTE | 2024-02-29 16:12 | P.PN ---
Subjective Progress Note Date: 02/29/24 Patient selvin hemodynamic stable.patient Mariel female with stable. He has had minimal output through his BRADLEY drain. His right subcostal incision is healing. He's had minimal output through his BRADLEY drain. His right subcostal incision is healing. Status post open cholecystectomy. Patient will continue receive supportive care. Objective - Vital Signs Vital signs: Vital Signs Temp 99.6 F 02/29/24 13:26 Pulse 81 02/29/24 13:26 Resp 19 02/29/24 13:26 BP 167/67 02/29/24 13:26 Pulse Ox 94 L 02/29/24 13:26 FiO2 30 02/26/24 15:10 Intake & Output 02/28/24 02/29/24 02/29/24 18:59 06:59 18:59 Intake Total 310 1120 Output Total 680 1125 500 Balance -370 -5 -500 Weight 100 kg Intake: IV 1000 Lactated Ringers 1,000 ml 900 @ 75 mls/hr IV .[id number] [facility] Rx#:[id number] Piperacillin-Tazobactam 3 100 .375 gm In Sodium Chloride 0.9% 100 ml @ 25 mls/hr IVPB Q8HR [facility] Rx# :[id number] Tube Feeding 120 Blood Product 310 Rc As-1 Unit 310 [id number] Output: Drainage 30 25 Right Abdomen 30 25 Urine 650 1100 500 Other: Voiding Method Indwelling Catheter Indwelling Catheter Indwelling Catheter ABP, PAP, CO, CI - Last Documented Arterial Blood Pressure 117/42 - Labs CBC & Chem 7: 02/29/24 03:46 02/29/24 03:46 Labs: Abnormal Lab Results - Last 24 Hours (Table) 02/28/24 02/28/24 02/28/24 Range/Units 06:47 14:54 14:54 WBC (3.8-10.6) k/uL RBC (4.30-5.90) m/uL Hgb (13.0-17.5) gm/dL Hct (39.0-53.0) % Neutrophils # (1.3-7.7) k/uL Lymphocytes # (1.0-4.8) k/uL Retic Count 2.4 H (0.5-2.0) % Chloride (98-107) mmol/L Glucose (74-99) mg/dL POC Glucose (mg/dL) (70-110) mg/dL Calcium (8.4-10.2) mg/dL Iron 11 L (65-175) UG/DL TIBC 118 L (228-460) UG/DL % Saturation 9.32 L (15.00-50.00) Transferrin 84.5 L 84.6 L (204.0-354.0) mg/dL 02/28/24 02/28/24 02/29/24 Range/Units 16:42 20:37 00:15 WBC (3.8-10.6) k/uL RBC (4.30-5.90) m/uL Hgb (13.0-17.5) gm/dL Hct (39.0-53.0) % Neutrophils # (1.3-7.7) k/uL Lymphocytes # (1.0-4.8) k/uL Retic Count (0.5-2.0) % Chloride (98-107) mmol/L Glucose (74-99) mg/dL POC Glucose (mg/dL) 131 H 148 H 141 H (70-110) mg/dL Calcium (8.4-10.2) mg/dL Iron (65-175) UG/DL TIBC (228-460) UG/DL % Saturation (15.00-50.00) Transferrin (204.0-354.0) mg/dL 02/29/24 02/29/24 02/29/24 Range/Units 03:46 03:46 06:18 WBC 11.3 H (3.8-10.6) k/uL RBC 2.56 L (4.30-5.90) m/uL Hgb 7.1 L (13.0-17.5) gm/dL Hct 22.6 L (39.0-53.0) % Neutrophils # 9.8 H (1.3-7.7) k/uL Lymphocytes # 0.7 L (1.0-4.8) k/uL Retic Count (0.5-2.0) % Chloride 109 H (98-107) mmol/L Glucose 140 H (74-99) mg/dL POC Glucose (mg/dL) 155 H (70-110) mg/dL Calcium 7.3 L (8.4-10.2) mg/dL Iron (65-175) UG/DL TIBC (228-460) UG/DL % Saturation (15.00-50.00) Transferrin (204.0-354.0) mg/dL 02/29/24 Range/Units 11:49 WBC (3.8-10.6) k/uL RBC (4.30-5.90) m/uL Hgb (13.0-17.5) gm/dL Hct (39.0-53.0) % Neutrophils # (1.3-7.7) k/uL Lymphocytes # (1.0-4.8) k/uL Retic Count (0.5-2.0) % Chloride (98-107) mmol/L Glucose (74-99) mg/dL POC Glucose (mg/dL) 170 H (70-110) mg/dL Calcium (8.4-10.2) mg/dL Iron (65-175) UG/DL TIBC (228-460) UG/DL % Saturation (15.00-50.00) Transferrin (204.0-354.0) mg/dL Microbiology - Last 24 Hours (Table) 02/27/24 03:05 Blood Culture - Preliminary Blood 02/26/24 03:58 Blood Culture - Preliminary Blood 02/25/24 07:21 Blood Culture - Preliminary Blood 02/23/24 11:40 Blood Culture - Final Blood
[2024-02-29 17:06] LABS: Glucose,Whole Blood 140 mg/dL (70-110)
[2024-02-29] MEDS: ACETAMINOPHEN IV (For NPO) 1,000 MG in EMPTY BAG 1 BAG IVPB STA (22:12)
[2024-02-29 23:56] LABS: Glucose,Whole Blood 129 mg/dL (70-110)
[2024-03-01 06:14] LABS: Glucose,Whole Blood 130 mg/dL (70-110)
[2024-03-01 08:51] LABS: BUN/Creat Ratio 21.56 Ratio (12.00-20.00); Blood Urea Nitrogen 19.4 mg/dL (9.0-27.0); Calcium 7.2 mg/dL (8.7-10.3); Carbon Dioxide 24.4 mmol/L (21.6-31.8); Chloride 110 mmol/L (96-109); Glucose 121 mg/dL (70-110); Potassium 3.9 mmol/L (3.5-5.5); Sodium 143 mmol/L (135-145)
[2024-03-01 09:07] LABS: Basophils # (A) 0.06 X 10*3/uL (0.00-0.10); Basophils % (A) 0.5 %; Eosinophils # (A) 0.27 X 10*3/uL (0.04-0.35); Eosinophils % (A) 2.2 %; HCT 20.7 % (39.6-50.0); HGB 6.7 g/dL (13.0-17.0); Lymphocytes # (A) 1.22 X 10*3/uL (0.90-5.00); Lymphocytes % (A) 10.1 %; MCH 28.2 pg (27.0-32.0); MCHC 32.4 g/dL (32.0-37.0); Mean Platelet Volume 9.7 FL (9.5-12.2); Monocytes # (A) 0.69 X 10*3/uL (0.20-1.00); Monocytes % (A) 5.7 %; NRBC Per 100 WBC 0 X 10*3/uL (0.00-0.01); Neutrophils # (A) 9.78 X 10*3/uL (1.80-7.70); Neutrophils % (A) 80.8 %; Platelet Count 258 X 10*3/uL (140-440); RBC 2.38 X 10*6/uL (4.40-5.60); RBC Morphology Normal (Normal); RDW 15.6 % (11.5-14.5)
--- NOTE | 2024-03-01 10:55 | XR ---
EXAMINATION TYPE: XR chest 1V portable DATE OF EXAM: 03/01/2024 10:47 AM COMPARISON: Chest radiographs from 02/28/2024 TECHNIQUE: XR chest 1V portable Portable AP radiograph of the chest. CLINICAL INDICATION:Male, 68 years old with history of check NG tube placement; FINDINGS: Lungs/Pleura: Moderate right-sided pleural effusion redemonstrated with associated atelectasis and/or consolidation. Improved aeration of the right upper lung from prior exam. Left lung is relatively cl ear. Pulmonary vascularity: Unremarkable. Heart/mediastinum: Cardiomediastinal silhouette is stable. Musculoskeletal: No acute osseous pathology. Other findings: Skin vikash identified within the right upper abdomen. Lines/Tubes: Nasogastric tube with its distal tip in the left upper quadrant. The sidehole appears to be at the GE junction. Partial visualization of surgical drain within the right upper to mid abdomen. IMPRESSION: 1. NG tube with sidehole at the GE junction. Recommend advancement of 10 cm. 2. Continued moderate size right pleural effusion with associated consolidation/atelectasis. Improve d aeration of the right upper lung from prior exam.
[2024-03-01 11:35] LABS: Glucose,Whole Blood 125 mg/dL (70-110)
--- NOTE | 2024-03-01 12:21 | P.PN ---
Subjective Progress Note Date: 03/01/24 Patient selvin clinically unchanged. He is sleeping in his bed. His hemoglobin is 6.7. On exam vital signs are stable. Abdomen is soft. Incisions clean are intact. Status post open cholecystectomy for severe acute acalculous cholecystitis. Patient will receive 1 unit packed red cells today. Objective - Vital Signs Vital signs: Vital Signs Temp 98.4 F 03/01/24 07:39 Pulse 74 03/01/24 07:39 Resp 17 03/01/24 07:39 BP 145/67 03/01/24 07:39 Pulse Ox 99 03/01/24 09:02 FiO2 30 02/26/24 15:10 Intake & Output 02/29/24 03/01/24 03/01/24 18:59 06:59 18:59 Output Total 1200 800 Balance -1200 -800 Weight 89 kg Output: Urine 1200 800 Other: Voiding Method Indwelling Catheter Indwelling Catheter Indwelling Catheter ABP, PAP, CO, CI - Last Documented Arterial Blood Pressure 117/42 - Labs CBC & Chem 7: 03/01/24 03:26 03/01/24 03:26 Labs: Abnormal Lab Results - Last 24 Hours (Table) 02/28/24 02/28/24 02/29/24 Range/Units 04:40 14:54 17:05 WBC (4.50-10.00) X 10*3/uL RBC (4.40-5.60) X 10*6/uL Hgb (13.0-17.0) g/dL Hct (39.6-50.0) % RDW (11.5-14.5) % Immature Gran # (0.00-0.04) X 10*3/uL Neutrophils # (1.80-7.70) X 10*3/uL Haptoglobin 252.0 H (31.2-198.0) mg/dL Chloride (96-109) mmol/L BUN/Creatinine Ratio (12.00-20.00) Ratio Glucose (70-110) mg/dL POC Glucose (mg/dL) 140 H (70-110) mg/dL Calcium (8.7-10.3) mg/dL Crossmatch See Detail 02/29/24 03/01/24 03/01/24 Range/Units 23:55 03:26 03:26 WBC 12.10 H (4.50-10.00) X 10*3/uL RBC 2.38 L (4.40-5.60) X 10*6/uL Hgb 6.7 A* (13.0-17.0) g/dL Hct 20.7 L (39.6-50.0) % RDW 15.6 H (11.5-14.5) % Immature Gran # 0.08 H (0.00-0.04) X 10*3/uL Neutrophils # 9.78 H (1.80-7.70) X 10*3/uL Haptoglobin (31.2-198.0) mg/dL Chloride 110 H (96-109) mmol/L BUN/Creatinine Ratio 21.56 H (12.00-20.00) Ratio Glucose 121 H (70-110) mg/dL POC Glucose (mg/dL) 129 H (70-110) mg/dL Calcium 7.2 L (8.7-10.3) mg/dL Crossmatch 03/01/24 03/01/24 Range/Units 06:12 11:33 WBC (4.50-10.00) X 10*3/uL RBC (4.40-5.60) X 10*6/uL Hgb (13.0-17.0) g/dL Hct (39.6-50.0) % RDW (11.5-14.5) % Immature Gran # (0.00-0.04) X 10*3/uL Neutrophils # (1.80-7.70) X 10*3/uL Haptoglobin (31.2-198.0) mg/dL Chloride (96-109) mmol/L BUN/Creatinine Ratio (12.00-20.00) Ratio Glucose (70-110) mg/dL POC Glucose (mg/dL) 130 H 125 H (70-110) mg/dL Calcium (8.7-10.3) mg/dL Crossmatch Microbiology - Last 24 Hours (Table) 02/27/24 03:05 Blood Culture - Preliminary Blood 02/26/24 03:58 Blood Culture - Preliminary Blood
--- NOTE | 2024-03-01 12:55 | P.PN ---
Subjective Progress Note Date: 03/01/24 Principal diagnosis: Reason for follow-up is acute cholecystitis and bacteremia Patient is a 68-year-old male with a past medical history significant for diabetes mellitus hypertension sleep apnea CVA TIA Parkinson disease patient was brought into the hospital initially for chest pain has been diagnosed with acute cholecystitis and also have VRE bacteremia. Patient is status post laparoscopic cholecystectomy on 02/24/2024 subsequent requiring admission to the ICU on the ventilator. On today's evaluation that is 03/01/2024,the patient did spike a fever of 101.9 degrees Fahrenheit Last night however has been afebrile since then, the patient is breathing comfortable 2 L current oxygen the patient remains to be lethargic and did not provide any history no vomiting or diarrhea reported by the nursing staff. Patient white count is 12.10, hemoglobin is 6.7, creatinine 0.9 Objective - Vital Signs Vital signs: Vital Signs Temp 98.4 F 03/01/24 07:39 Pulse 74 03/01/24 07:39 Resp 17 03/01/24 07:39 BP 145/67 03/01/24 07:39 Pulse Ox 99 03/01/24 09:02 FiO2 30 02/26/24 15:10 Intake & Output 02/29/24 03/01/24 03/01/24 18:59 06:59 18:59 Output Total 1200 800 Balance -1200 -800 Weight 89 kg Output: Urine 1200 800 Other: Voiding Method Indwelling Catheter Indwelling Catheter Indwelling Catheter ABP, PAP, CO, CI - Last Documented Arterial Blood Pressure 117/42 - Exam GENERAL DESCRIPTION: An elderly male lying in bed in no distress RESPIRATORY SYSTEM: Unlabored breathing , decreased breath sounds at bases HEART: S1 S2 regular rate and rhythm , ABDOMEN: Soft , no tenderness EXTREMITIES: No edema feet - Labs CBC & Chem 7: 03/01/24 03:26 03/01/24 03:26 Labs: Abnormal Lab Results - Last 24 Hours (Table) 02/28/24 02/29/24 02/29/24 Range/Units 14:54 11:49 17:05 WBC (4.50-10.00) X 10*3/uL RBC (4.40-5.60) X 10*6/uL Hgb (13.0-17.0) g/dL Hct (39.6-50.0) % RDW (11.5-14.5) % Immature Gran # (0.00-0.04) X 10*3/uL Neutrophils # (1.80-7.70) X 10*3/uL Haptoglobin 252.0 H (31.2-198.0) mg/dL Chloride (96-109) mmol/L BUN/Creatinine Ratio (12.00-20.00) Ratio Glucose (70-110) mg/dL POC Glucose (mg/dL) 170 H 140 H (70-110) mg/dL Calcium (8.7-10.3) mg/dL 02/29/24 03/01/24 03/01/24 Range/Units 23:55 03:26 03:26 WBC 12.10 H (4.50-10.00) X 10*3/uL RBC 2.38 L (4.40-5.60) X 10*6/uL Hgb 6.7 A* (13.0-17.0) g/dL Hct 20.7 L (39.6-50.0) % RDW 15.6 H (11.5-14.5) % Immature Gran # 0.08 H (0.00-0.04) X 10*3/uL Neutrophils # 9.78 H (1.80-7.70) X 10*3/uL Haptoglobin (31.2-198.0) mg/dL Chloride 110 H (96-109) mmol/L BUN/Creatinine Ratio 21.56 H (12.00-20.00) Ratio Glucose 121 H (70-110) mg/dL POC Glucose (mg/dL) 129 H (70-110) mg/dL Calcium 7.2 L (8.7-10.3) mg/dL 03/01/24 Range/Units 06:12 WBC (4.50-10.00) X 10*3/uL RBC (4.40-5.60) X 10*6/uL Hgb (13.0-17.0) g/dL Hct (39.6-50.0) % RDW (11.5-14.5) % Immature Gran # (0.00-0.04) X 10*3/uL Neutrophils # (1.80-7.70) X 10*3/uL Haptoglobin (31.2-198.0) mg/dL Chloride (96-109) mmol/L BUN/Creatinine Ratio (12.00-20.00) Ratio Glucose (70-110) mg/dL POC Glucose (mg/dL) 130 H (70-110) mg/dL Calcium (8.7-10.3) mg/dL Microbiology - Last 24 Hours (Table) 02/27/24 03:05 Blood Culture - Preliminary Blood 02/26/24 03:58 Blood Culture - Preliminary Blood Assessment and Plan (1) Sepsis Current Visit: Yes Status: Acute Code(s): A41.9 - SEPSIS, UNSPECIFIED ORGANISM SNOMED Code(s): 86257536 (2) Cholecystitis Current Visit: Yes Status: Acute Code(s): K81.9 - CHOLECYSTITIS, UNSPECIFIED SNOMED Code(s): 65719712 (3) VRE bacteremia Current Visit: Yes Status: Acute Code(s): R78.81 - BACTEREMIA; B95.2 - ENTEROCOCCUS THE CAUSE OF DISEASES CLASSIFIED ELSEWHERE; Z16.21 - RESISTANCE TO VANCOMYCIN SNOMED Code(s): 1099095314 (4) Allergy to cephalosporin Current Visit: Yes Status: Acute Code(s): Z88.1 - ALLERGY STATUS TO OTHER ANTIBIOTIC AGENTS SNOMED Code(s): 593671020 Plan: 1patient presented hospital with sepsis in this patient who did have fever elevated white count source is acute cholecystitis usually associated with a gram-negative bacteria and also secondary to Enterococcus 2-VRE bacteremia source could be acute gastritis 3-blood culture has been repeated and so far negative 4-patient did spike a fever last night I was not notified afebrile this morning we will repeat his blood cultures continue with the Zosyn and daptomycin, he may benefit for repeat CT abdominal pelvis Dictation was produced using [employer] dictation software. please excuse any grammatical, word or spelling errors. Time with Patient: Less than 30
--- NOTE | 2024-03-01 14:11 | P.PN ---
Subjective Progress Note Date: 03/01/24 This is a 68-year-old male patient who is currently intubated on mechanical ventilator. The patient was taken to the operating room for acute cholecystitis and bacteremia. The patient was found to have severe acute cholecystitis and the patient was initially supposed to have a laparoscopic cholecystectomy and this was converted to an open procedure. The patient was found to have significant adhesions. The gallbladder was taken out. The patient encountered bleeding and estimated blood loss was in the order of 1000 cc. The patient accordingly was given a total of 1.5 L of crystalloid in the operating room, 1 unit of packed RBC, a total of 1000 cc of albumin. Output from the BRADLEY drain is minimal at this point in time. The patient is currently on propofol running at 15 mcg/kg/min. He is on assist-control mode of mechanical ventilation at a rate of 16, tidal volume of 400, FiO2 40% with a PEEP of 5. The blood pressure was soft in the ICU and the patient was given additional liter of lactated Ringer. Blood gas showed a pH of 7.38 with a pCO2 of 40 and pO2 of more than 420. FiO2 was dropped accordingly. Chest x-ray shows borderline heart size and some atelectatic change in the left midlung. The patient's blood culture showing Enterococcus faecium and based on that the patient was kept on a combination of Zosyn and daptomycin. No pressors for now. Note that the patient is known to have previous history of CVA. He has insulin-dependent diabetes mellitus and hypertension hyperlipidemia and Lewy body dementia and Parkinson's disease. He has also history of obstructive sleep apnea. His gallbladder ultrasound that was done at the time of admission showed acute cholecystitis with distended gallbladder wall thickening and the CT of the chest that was done on 02/23/2024 showed no evidence of any pulmonary embolism. The lungs were essentially clear from any acute pulmonary filtration. On 02/25/2024, the patient remains intubated on the mechanical ventilator. No significant events overnight. The patient is postop day #1 following an open cholecystectomy. Output from the BRADLEY drain is minimal at this point in time. The patient is currently on propofol which is running at 20 mcg/kg/min. He remains on assist-control mode of mechanical ventilation at rate of 60, tidal volume of 450, FiO2 of 30% with a PEEP of 5. Blood gas showed a pH of 7.41 with a pCO2 of 42 and pO2 of 155. The patient was given a total of 2 units of packed RBC postop. He was also given a unit of platelets. No active bleeding. Remains on lactated Ringer at rate of 125 cc an hour. Remains NPO. No pressors for now and the norepinephrine has been discontinued. The white cell count of 12.2 with a hemoglobin 9.8 and a platelet count of 201. BUN is 22 with a creatinine 0.9 and his sodium level is 136. AST is 196, ALT is 139 with an alkaline phosphatase of 115. Cultures positive for Enterococcus faecium and the patient remains on a combination of Zosyn and daptomycin. Afebrile. He modynamically stable at this point in time. 02/26/2024, the patient is quite lethargic, sleepy, rigid, slightly responsive to verbal stimulation. He grimaces to painful stimulation. To my understanding, the patient has significant Lewy body dementia with chronic rigidity and cognitive impairment. The patient remains on the mechanical ventilator. Off sedation. Currently on assist-control mode with rate of 16, tidal volume of 400 and FiO2 of 30% with a PEEP of 5. The blood gas from today shows a pH of 7.48 with a pCO2 of 38 and pO2 of 87. Chest x-ray from today shows patchy opacity in the right lung base/atelectasis. Orogastric and orotracheal tube are both in place. The patient is hemodynamically stable. The patient is afebrile. The patient on lactated Ringer at rate of 125 cc an hour. BRADLEY drain output is serous. The LFTs are essentially within normal limits. Sodium is at 136, BUN is 20 with a creatinine of 0.8 and a potassium levels of 3.8. The white cell count 11.2 with a hemoglobin 8.4 and a platelet count of 146. Remains on Zosyn and daptomycin. No other significant events overnight. 02/27/2024, the patient is extubated and the patient is currently on 2 L of oxygen by nasal cannula. Significant neurologic impairment and cognitive impairment and rigidity. Does not communicate. Does not follow any simple commands. Unable to swallow. Respiratory status is stable. Hemodynamically stable. Repeat chest x-ray was done today and the patient was found to have some right- sided atelectasis and small right-sided pleural effusion. Abdomen is nondistended. Surgical wound site is dry clean and intact. BRADLEY drain is in place. Output overnight was elevated and the patient produced approximately 490 cc over the past 8 hours and currently the output is down to 5 to 10 cc an hour. Output is somewhat bloody/serosanguineous. Remains on lactated Ringer at 125 cc an hour. No pressors. Remains on Zosyn and vancomycin. Hemoglobin is down to 7.3 with a white cell count of 13.2. Electrolytes are all within normal limits. Afebrile. 02/28/2024, the patient is being seen for a follow-up. The patient got transferred out of the intensive care unit yesterday after being extubated. For now, the patient has an NG tube placed and the patient is sleeping Glucerna for enteral feeding and nutritional support. The abdominal scar is dry clean and intact. BRADLEY drain is in place and the output is in the order of 10 cc an hour. Hemoglobin has dropped down to 6.3 and the patient will receive another unit of packed RBC. No evidence of any GI bleeding at this point in time. No coffee- ground emesis. Hemodynamically stable. Neurologic status is unchanged and the patient has significant neurologic impairment due to his Lewy body dementia. The white cell count 11, hemoglobin is 6.3 and a platelet count of 195, BUN is 21 with a creatinine of 0.7. Stable 2 L of oxygen by nasal cannula with a pulse ox of 98%. The patient is postop day #4 following an open cholecystectomy. The patient is seen today February 29, 2024 in follow-up on the regular medical floor. He is currently sitting up in bed. Awake and alert in no acute distress. Maintaining O2 saturation in the 90s on 2 L/min per nasal cannula. Nasogastric tube remains in place. He is being nourished with Glucerna at 60 MLS per hour. He has lactated Ringer's at 75 MLS per hour. BRADLEY drain remains in place. Abdominal dressing is dry and intact. Blood cultures were positive for Enterococcus faecium VRE. Follow-up blood cultures revealing no growth. White count 11.3. Hemoglobin 7.1. Platelets 240. Sodium 138. Potassium 3.6. Bicarb 24. BUN 20. Creatinine 0.79. Glucose 140. He remains on daptomycin and Zosyn. Chest x-ray reveals evidence of a right pleural effusion. Ultrasound today reveals only a 3.6 cm pocket. He is status post 3 units of packed red blood cells and 1 unit of platelets this admission. The patient is seen today March 01, 2024 in follow-up on the regular medical floor. He is currently resting in bed. He is maintaining O2 saturations in the 90s on 2 L/min per nasal cannula. His nasogastric tube had to be replaced as the patient had pulled it out earlier. Follow-up chest x-ray shows the nasogastric tube in place with needing advancement of 10 cm. There is a continued moderate right size pleural effusion with associated consolidation/atelectasis. Improved aeration of the right upper lung. Initial blood cultures were positive for Enterococcus faecium VRE. Follow-up blood cultures revealed no growth. He remains on antibiotics in the form of Zosyn and daptomycin. He is being nourished with Glucerna at 60 MLS per hour. White count 12.1. Hemoglobin 6.7. Platelets 258. Sodium 143. Potassium 3.9. Bicarb 24. BUN 19. Creatinine 0.9. Glucose 121. He is receiving a fourth unit of packed red blood cells this admission. Objective - Vital Signs Vital signs: Vital Signs Temp 99.3 F 03/01/24 12:56 Pulse 79 03/01/24 12:56 Resp 19 03/01/24 12:56 BP 128/78 03/01/24 12:56 Pulse Ox 94 L 03/01/24 12:56 FiO2 30 02/26/24 15:10 Intake & Output 02/29/24 03/01/24 03/01/24 18:59 06:59 18:59 Intake Total 0 Output Total 1200 800 Balance -1200 -800 0 Weight 89 kg Intake: Blood Product 0 Unit 0 Output: Urine 1200 800 Other: Voiding Method Indwelling Catheter Indwelling Catheter Indwelling Catheter ABP, PAP, CO, CI - Last Documented Arterial Blood Pressure 117/42 - Exam GENERAL EXAM: Alert, cognitively impaired, 68-year-old male patient, on 2 L nasal cannula, comfortable in no apparent distress. HEAD: Normocephalic. EYES: Normal reaction of pupils, equal size. NOSE: Place. Clear with pink turbinates. Nasogastric tube secured in place. THROAT: No erythema or exudates. NECK: No masses, no JVD. CHEST: No chest wall deformity. LUNGS: Equal air entry with no crackles, wheeze, rhonchi or dullness. CVS: S1 and S2 normal with no audible murmur, regular rhythm. ABDOMEN: Surgical incision clean dry and well-approximated. BRADLEY drain remains in place. SPINE: No scoliosis or deformity SKIN: No rashes CENTRAL NERVOUS SYSTEM: Cognitively impaired, tone is normal in all 4 extremiti es. EXTREMITIES: There is no peripheral edema. No clubbing, no cyanosis. Peripheral pulses are intact. - Labs CBC & Chem 7: 03/01/24 03:26 03/01/24 03:26 Labs: Abnormal Lab Results - Last 24 Hours (Table) 02/28/24 02/28/24 02/29/24 Range/Units 04:40 14:54 17:05 WBC (4.50-10.00) X 10*3/uL RBC (4.40-5.60) X 10*6/uL Hgb (13.0-17.0) g/dL Hct (39.6-50.0) % RDW (11.5-14.5) % Immature Gran # (0.00-0.04) X 10*3/uL Neutrophils # (1.80-7.70) X 10*3/uL Haptoglobin 252.0 H (31.2-198.0) mg/dL Chloride (96-109) mmol/L BUN/Creatinine Ratio (12.00-20.00) Ratio Glucose (70-110) mg/dL POC Glucose (mg/dL) 140 H (70-110) mg/dL Calcium (8.7-10.3) mg/dL Crossmatch See Detail 02/29/24 03/01/24 03/01/24 Range/Units 23:55 03:26 03:26 WBC 12.10 H (4.50-10.00) X 10*3/uL RBC 2.38 L (4.40-5.60) X 10*6/uL Hgb 6.7 A* (13.0-17.0) g/dL Hct 20.7 L (39.6-50.0) % RDW 15.6 H (11.5-14.5) % Immature Gran # 0.08 H (0.00-0.04) X 10*3/uL Neutrophils # 9.78 H (1.80-7.70) X 10*3/uL Haptoglobin (31.2-198.0) mg/dL Chloride 110 H (96-109) mmol/L BUN/Creatinine Ratio 21.56 H (12.00-20.00) Ratio Glucose 121 H (70-110) mg/dL POC Glucose (mg/dL) 129 H (70-110) mg/dL Calcium 7.2 L (8.7-10.3) mg/dL Crossmatch 03/01/24 03/01/24 Range/Units 06:12 11:33 WBC (4.50-10.00) X 10*3/uL RBC (4.40-5.60) X 10*6/uL Hgb (13.0-17.0) g/dL Hct (39.6-50.0) % RDW (11.5-14.5) % Immature Gran # (0.00-0.04) X 10*3/uL Neutrophils # (1.80-7.70) X 10*3/uL Haptoglobin (31.2-198.0) mg/dL Chloride (96-109) mmol/L BUN/Creatinine Ratio (12.00-20.00) Ratio Glucose (70-110) mg/dL POC Glucose (mg/dL) 130 H 125 H (70-110) mg/dL Calcium (8.7-10.3) mg/dL Crossmatch Microbiology - Last 24 Hours (Table) 02/27/24 03:05 Blood Culture - Preliminary Blood 02/26/24 03:58 Blood Culture - Preliminary Blood Assessment and Plan Assessment: Acute cholecystitis and the patient underwent an open cholecystectomy. The patient is currently postop day #6. Significant blood loss intraoperatively and the patient was resuscitated with fluids, colloids/albumin and received 3 units of packed RBC and one platelets. Current hemoglobin 6.7. To receive his fourth unit of packed red blood cells today, March 01, 2024. No evidence of any acute bleeding and the output from the BRADLEY drain is minimal at this point in time. Acute enterococcal septicemia secondary to cholecystitis and the patient is currently on a combination of daptomycin and Zosyn. The patient has Enterococcus faecium VRE in the blood cultures Acute hypoxemic respiratory failure post Gallbladder Surgery. Patient was extubated to nasal cannula on 02/26/2024, currently on 2 L of oxygen by nasal cannula Previous history of CVA History of hypertension Hyperlipidemia Lewy body dementia with Parkinson disease at baseline with significant motor rigidity and cognitive impairment. Plan: The patient was seen and evaluated Labs and medications reviewed Hemoglobin 6.7 Requiring another unit of packed red blood cells Titrate down the FiO2 as tolerated Continue antibiotics per ID service Continue bronchodilators The patient had pulled out his nasogastric tube, reinserted today Continue tube feedings for nutritional support 2 daughters at the bedside and questions were answered We will continue to follow I have personally seen and examined the patient, performed the documentation and the assessment and plan as written. Number of minutes spent on the visit: 10.
--- NOTE | 2024-03-01 15:19 | P.PN ---
Subjective Progress Note Date: 03/01/24 68-year-old male with a past medical history of hypertension, hyperlipidemia, CVA, insulin-dependent diabetes mellitus, Lewy body dementia, Parkinson's disease, and obstructive sleep apnea. He presented to the emergency department 02/22/2024 with a chief complaint of chest pain. Altered facility, patient evaluation emergency department. Vital signs upon arrival show blood pressure 138/79, heart rate 90, respiratory rate 19, temperature 98.4 F, and SpO2 98% on room air. EKG showing normal sinus rhythm at 91 bpm with right bundle branch block. Chest x-ray completed negative for acute cardiopulmonary process. Labs completed and reviewed. CBC showing leukocytosis with WBC count of 14.7 otherwise normal findings. Coagulation profile showing elevated PT of 12.9, INR of 1.2, and D-dimer of 1.93. BMP unremarkable with exception of mild hyperglycemia with glucose of 179. Liver profile showing hyperbilirubinemia with elevated transaminases with total bili of 2.2, AST of 224, and alkaline phosphatase of 233. Troponin was negative at less than 0.012. CTA chest completed negative for PE. Patient was admitted under our services with consultation to cardiology. Gallbladder ultrasound was ordered and results reviewed. Radiologist reporting findings concerning for acute cholecystitis with distended gallbladder, wall thickening with pericholecystic fluid and tumefactive sludge. Consult placed to general surgeon. Patient underwent cholecystectomy. Procedure complicated by significant blood loss. Patient was subsequently moved to medical ICU for further recovery. Blood cultures 1 out of 2 growing Enterococcus, likely VRE. ID also following. Patient currently in medical ICU. Now extubated. Hemoglobin relatively stable. Out of the ICU, on [facility] floors. Still having further drop in hemoglobin. 03/01 Patient was seen and examined. NG tube pulled out yesterday, re-inserted today. He is currently on 3L NC. CBC WBC 12.1, Hg 6.7, Hct 20.7. BMP Cl 110, BUN/Cr 21.56, glu 121, Ca 7.2. Antibiotics include Daptomycin 500 mg IV QD and Zosyn 3.375g IV TID. Tmax 101.9F 02/28 and 99.8F on 03/01. ID considering CT AP. Repeat BCx has been negative so far. General: Not in acute distress Derm: Warm, dry Head: Atraumatic, normocephalic, symmetric Eyes: EOMI, pupils equal and reactive, anicteric sclera Mouth: No lip lesion, mucus membranes moist Cardiovascular: S1S2 reg, no murmur Lungs: CTA bilateral, no rhonchi, no rales, no accessory muscle use, supplemental oxygen Abdominal: Soft, nontender to palpation, abdominal binder in place, BRADLEY drain in place Ext: No gross muscle atrophy, no edema, no contractures Neuro: Drowsy, CN II to XII grossly normal, oriented x 1 Psych: Drowsy, cooperative Acute cholecystitis status postcholecystectomy VRE bacteremia: Patient currently on IV daptomycin 500 mg every 24 hours, IV Zosyn 3.375 g every [address] AP. Acute encephalopathy: Likely metabolic versus septic Acute blood loss anemia: Intraoperatively. Status post 3 units of PRBCs, and 1 unit of platelets. 1 unit PRBC ordered today. Right pleural effusion: Pulmonary on board. Insulin-dependent diabetes: Sliding scale insulin, every 6 hours, monitor for hypoglycemia. Resolved: Hemorrhagic shock, Ventilator dependent respiratory failure Chronic: Lewy body dementia, Parkinson's disease Depression History of CVA History of hypertension Dyslipidemia RONNELL Objective - Vital Signs Vital signs: Vital Signs Temp 99.8 F H 03/01/24 14:00 Pulse 79 03/01/24 14:00 Resp 18 03/01/24 14:00 BP 137/79 03/01/24 14:00 Pulse Ox 94 L 03/01/24 12:56 FiO2 30 02/26/24 15:10 Intake & Output 02/29/24 03/01/24 03/01/24 18:59 06:59 18:59 Intake Total 0 Output Total 1200 800 Balance -1200 -800 0 Weight 89 kg Intake: Blood Product 0 Unit 0 Output: Urine 1200 800 Other: Voiding Method Indwelling Catheter Indwelling Catheter Indwelling Catheter ABP, PAP, CO, CI - Last Documented Arterial Blood Pressure 117/42 - Labs CBC & Chem 7: 03/01/24 03:26 03/01/24 03:26 Labs: Abnormal Lab Results - Last 24 Hours (Table) 02/28/24 02/28/24 02/29/24 Range/Units 04:40 14:54 17:05 WBC (4.50-10.00) X 10*3/uL RBC (4.40-5.60) X 10*6/uL Hgb (13.0-17.0) g/dL Hct (39.6-50.0) % RDW (11.5-14.5) % Immature Gran # (0.00-0.04) X 10*3/uL Neutrophils # (1.80-7.70) X 10*3/uL Haptoglobin 252.0 H (31.2-198.0) mg/dL Chloride (96-109) mmol/L BUN/Creatinine Ratio (12.00-20.00) Ratio Glucose (70-110) mg/dL POC Glucose (mg/dL) 140 H (70-110) mg/dL Calcium (8.7-10.3) mg/dL Crossmatch See Detail 02/29/24 03/01/24 03/01/24 Range/Units 23:55 03:26 03:26 WBC 12.10 H (4.50-10.00) X 10*3/uL RBC 2.38 L (4.40-5.60) X 10*6/uL Hgb 6.7 A* (13.0-17.0) g/dL Hct 20.7 L (39.6-50.0) % RDW 15.6 H (11.5-14.5) % Immature Gran # 0.08 H (0.00-0.04) X 10*3/uL Neutrophils # 9.78 H (1.80-7.70) X 10*3/uL Haptoglobin (31.2-198.0) mg/dL Chloride 110 H (96-109) mmol/L BUN/Creatinine Ratio 21.56 H (12.00-20.00) Ratio Glucose 121 H (70-110) mg/dL POC Glucose (mg/dL) 129 H (70-110) mg/dL Calcium 7.2 L (8.7-10.3) mg/dL Crossmatch 03/01/24 03/01/24 Range/Units 06:12 11:33 WBC (4.50-10.00) X 10*3/uL RBC (4.40-5.60) X 10*6/uL Hgb (13.0-17.0) g/dL Hct (39.6-50.0) % RDW (11.5-14.5) % Immature Gran # (0.00-0.04) X 10*3/uL Neutrophils # (1.80-7.70) X 10*3/uL Haptoglobin (31.2-198.0) mg/dL Chloride (96-109) mmol/L BUN/Creatinine Ratio (12.00-20.00) Ratio Glucose (70-110) mg/dL POC Glucose (mg/dL) 130 H 125 H (70-110) mg/dL Calcium (8.7-10.3) mg/dL Crossmatch Microbiology - Last 24 Hours (Table) 02/27/24 03:05 Blood Culture - Preliminary Blood 02/26/24 03:58 Blood Culture - Preliminary Blood
[2024-03-01] MEDS: IOPAMIDOL CONTRAST (ORAL USE) VIAL PO PRN (16:23)
[2024-03-01 16:42] LABS: Glucose,Whole Blood 102 mg/dL (70-110)
--- NOTE | 2024-03-01 18:43 | CT ---
EXAMINATION TYPE: CT abdomen pelvis wo con CT DLP: 1115.9 mGycm, Automated exposure control for dose reduction was used. DATE OF EXAM: 03/01/2024 6:30 PM COMPARISON: 10/24/2023 CLINICAL INDICATION:Male, 68 years old with history of Fever; abdominal pain, fever TECHNIQUE: Axial CT abdomen pelvis wo con;Sagittal and coronal reformats were created on a separate workstation. Contrast used: mL of , (none if empty) Oral contrast used: with Oral Contrast (none if empty) FINDINGS: LOWER CHEST: Right pleural space fluid collection. Consolidation of the right lung base. Trace left p leural effusion. ABDOMEN LIVER: Unremarkable GALLBLADDER AND BILE DUCTS: Gallbladder is not appreciated due to lack of IV contrast and structures in the abdomen. There is irregulare casting of the drainage catheter of unclear origin series 201 lambert ge 25 and image 24 PANCREAS: Unremarkable. SPLEEN: Unremarkable. ADRENAL GLANDS: Unremarkable. KIDNEYS AND URETERS: No evidence of hydronephrosis or renal calculus. The ureters are unremarkable. PELVIS BLADDER: Nondistended with Fernandes catheter in place. REPRODUCTIVE: Unremarkable. ABDOMEN & PELVIS STOMACH AND BOWEL: No evidence of bowel obstruction. Large amount stool in the rectum. PERITONEUM/RETROPERITONEUM: Drainage tube terminating in the gallbladder fossa. There is free air und er the diaphragm with fluid around the liver and in the right paracolic matter. Fluid in the appendix surgical bed on 10/24/2023 is not visualized. Unclear if this gallbladder fossa areas within a loop of colon given lack of contrast. VASCULATURE: No evidence of aortic aneurysm. MUSCULOSKELETAL: No acute osseous abnormalities LYMPH NODES: No gross evidence for lymphadenopathy. SOFT TISSUE/ABDOMINAL WALL: Shireen along the right anterior abdominal wall. Anasarca of the soft tis sues. IMPRESSION: 1. Intra-abdominal free fluid and free air with drainage tube in the gallbladder fossa. Mottled gas near the drainage catheter tip possibly unclear if this is within bowel or not. Other free air in the abdomen under the right diaphragm and fluid around the liver and right paracolic gutter. 2. No free fluid in the appendix surgical bed seen on prior. Evaluation of structures is limited wit hout IV contrast. Post infection is not excluded. Correlate with fluid 3. output. 4. The appendix surgical site appears without organizing fluid in this region compared to prior 11/10 exam, and has resolved. 5. Right pleural effusion with consolidation changes of the right lung base. Trace left pleural effu reina. Correlate for signs and symptoms of pneumonia. 6. Large amount stool in the rectum. 7. Fernandes catheter in appropriate position.
[2024-03-01] MEDS: POLYMYXIN B-TRIMETHOPRIM SULF (10,000-1) OPHTH DROPS 10 ML BTL BOTH EYES SCH (20:19)
[2024-03-01 23:53] LABS: Glucose,Whole Blood 112 mg/dL (70-110)
[2024-03-02 06:21] LABS: Glucose,Whole Blood 155 mg/dL (70-110)
[2024-03-02 06:35] LABS: HCT 27.9 % (39.0-53.0); Hypochromasia Slight; MCH 28.2 pg (25.0-35.0); MCHC 31.7 g/dL (31.0-37.0); Mean Platelet Volume 7.5; Platelet Count 419 k/uL (150-450); RBC 3.13 m/uL (4.30-5.90); RDW 15.3 % (11.5-15.5); WBC 12.8 k/uL (3.8-10.6)
[2024-03-02 06:47] LABS: ALT 35 U/L (4-49); AST 30 U/L (17-59); African American GFR (CKD) >90 (>60 ml/min/1.73 sqM); Albumin 2.3 g/dL (3.5-5.0); Albumin/Globulin Ratio 0.9; Alkaline Phosphatase 88 U/L (38-126); Anion Gap 4 mmol/L; Blood Urea Nitrogen 20 mg/dL (9-20); Calcium 7.6 mg/dL (8.4-10.2); Carbon Dioxide 21 mmol/L (22-30); Chloride 113 mmol/L (98-107); Globulin 2.6 g/dL; Glucose 131 mg/dL (74-99); Non-African American GFR(CKD) >90 (>60 ml/min/1.73 sqM); Sodium 138 mmol/L (137-145); Total Bilirubin 1.5 mg/dL (0.2-1.3); Total Protein 4.9 g/dL (6.3-8.2)
[2024-03-02 06:52] LABS: HGB 8.8 gm/dL (13.0-17.5)
--- NOTE | 2024-03-02 08:19 | XR ---
EXAMINATION TYPE: XR chest 1V portable DATE OF EXAM: 03/02/2024 6:32 AM CLINICAL INDICATION:Male, 68 years old with history of NG tube placement; COMPARISON: Chest radiographs from 03/01/2024 TECHNIQUE: XR chest 1V portable Frontal view of the chest. FINDINGS: Lungs/Pleura: Elevated right diaphragm and/or small right pleural effusion. There is no evidence of p leural effusion, focal consolidation, or pneumothorax. Pulmonary vascularity: Unremarkable. Heart/mediastinum: Cardiomediastinal silhouette is unremarkable. Musculoskeletal: No acute osseous pathology. Other findings: None Lines/Tubes: Nasogastric tube with side-port projecting over the distal esophagus. IMPRESSION: 1. Nasogastric side port near the gastroesophageal junction consider advancement of 6.5 cm for optim al placement 2. Small right pleural effusion/elevated right diaphragm.
--- NOTE | 2024-03-02 11:33 | XR ---
EXAMINATION TYPE: XR chest 1V portable DATE OF EXAM: 03/02/2024 11:24 AM COMPARISON: Chest radiographs from 03/02/2024 TECHNIQUE: XR chest 1V portable Portable AP radiograph of the chest. CLINICAL INDICATION:Male, 68 years old with history of NG tube placement.; FINDINGS: Lungs/Pleura: Elevated right diaphragm with similar small right pleural effusion and associated atele ctasis/consolidation. Pulmonary vascularity: Pulmonary vascular congestion. Heart/mediastinum: Cardiomediastinal silhouette is enlarged and stable. Musculoskeletal: No acute osseous pathology. Other findings: Skin vikash identified overlying the right midabdomen. Lines/Tubes: NG tube in similar position with sidehole in the distal esophagus and tip at the GE junction. Partial visualization of surgical drain within the right midabdomen. IMPRESSION: 1. NG tube is in similar position with sidehole projecting over the distal esophagus. Recommend adva ncement of 7.5 cm. 2. Cardiomegaly, pulmonary vascular congestion and small right pleural effusion. Correlate with BNP for congestive heart failure.
[2024-03-02 11:46] LABS: Glucose,Whole Blood 139 mg/dL (70-110)
--- NOTE | 2024-03-02 12:40 | XR ---
EXAMINATION TYPE: XR chest 1V portable DATE OF EXAM: 03/02/2024 Comparison: 03/02/2024 Clinical History: 68-year-old male NG tube placement Findings: NG tube is satisfactory. Patient remains obliqued towards the right. Extensive pleural-parenchymal op acity persists throughout the right hemithorax with interval worsening aeration. Interstitial density projects throughout the left lung. Impression: 1. Satisfactory NG tube. 2. Portable exam further limited by patient positioning. Extensive pleural-parenchymal opacities james in throughout the right side of the chest, probably sizable pleural effusion with underlying atelecta sis and/or consolidation. Interstitial changes persist on the left as well.
--- NOTE | 2024-03-02 12:44 | P.PN ---
Subjective Progress Note Date: 03/02/24 CHIEF COMPLAINT: Acute cholecystitis HISTORY OF PRESENT ILLNESS: Patient is postop day #7 status post open cholecystectomy. Patient currently on regular medical floor. He has pulled out his NG tube x 2. They were able to replace the NG tube this morning. Nursing staff is advancing the NG tube. Patient is having low-grade fevers. WBC 12.8 hemoglobin did go up from 6.7-8.8 after 1 unit of blood. Patient does remain lethargic and confused. BRADLEY drain [address] scan abdomen pelvis reported intra-abdominal free fluid and free air with drainage tube in the gallbladder fossa. Mottled gas near the drainage catheter tip. No free fluid in the appendix surgical bed. Large amount of stool in the rectum. PHYSICAL EXAM: VITAL SIGNS: Reviewed. GENERAL: no acute distress. ABDOMEN: Soft. Nondistended. Incision site right upper abdomen clean dry and intact. Small area of incision at mid abdomen has tiny amount of serous drainage. BRADLEY drain serosanguineous NEUROLOGIC: Lethargic and confused ASSESSMENT: 1. Acute on chronic cholecystitis 2. VRE bacteremia 3. Coagulopathy PLAN: -Continue NG tube for tube feeds -Will have nursing staff change the dressing and clean incision with chlorhexidine wipe -Continue antibiotics per ID service -Continue to hold Plavix -Continue to monitor hemoglobin Physician Slasher note has been reviewed by physician. Signing provider agrees with the documented findings, assessment, and plan of care. I have personally seen and examined the patient, reviewed the CHICKEN CATCHER /PAs history, exam and MDM and agree with the assessment and plan as written. Based on total visit time, I have performed more than 50% of the visit. As above: Patient sitting up in bed. Remains confused. Somewhat more alert per nursing staff today. Still having fevers overnight. White blood cell count 12.8. CAT scan was performed yesterday and reviewed. Patient has evidence of fluid and air in the right upper quadrant. He had at the time of the operation a significant amount of bleeding from the liver bed and a variety of different anticoagulant products were utilized which is likely contributing to the appearance in the gallbladder fossa and even the fluid around the liver. BRADLEY drain remains serosanguineous without evidence of bilious or feculent material. Mild tenderness right upper quadrant. Incision with a small amount of serous drainage medially. No erythema. No tachycardia. Continue broad-spectrum antibiotics. Continue BRADLEY to drainage. May remove nasogastric tube if the patient pulls it out for now. Hopefully when he is a bit more awake we can initiate a swallow evaluation and begin oral feeding. Objective - Vital Signs Vital signs: Vital Signs Temp 100.5 F H 03/02/24 07:05 Pulse 82 03/02/24 07:05 Resp 15 03/02/24 07:05 BP 138/66 03/02/24 07:05 Pulse Ox 93 L 03/02/24 08:58 FiO2 30 02/26/24 15:10 Intake & Output 03/01/24 03/02/24 03/02/24 18:59 06:59 18:59 Intake Total 310 Output Total 830 Balance -520 Weight 89 kg 89 kg Intake: Blood Product 310 Rc As-1 Unit 310 [id number] Output: Drainage 30 Right Abdomen 30 Urine 800 Other: Voiding Method Indwelling Catheter Indwelling Catheter # Voids 300 ABP, PAP, CO, CI - Last Documented Arterial Blood Pressure 117/42 - Labs CBC & Chem 7: 03/02/24 05:44 03/02/24 05:44 Labs: Abnormal Lab Results - Last 24 Hours (Table) 02/28/24 03/01/24 03/02/24 Range/Units 04:40 23:49 05:44 WBC 12.8 H (3.8-10.6) k/uL RBC 3.13 L (4.30-5.90) m/uL Hgb 8.8 L D (13.0-17.5) gm/dL Hct 27.9 L (39.0-53.0) % Chloride (98-107) mmol/L Carbon Dioxide (22-30) mmol/L Glucose (74-99) mg/dL POC Glucose (mg/dL) 112 H (70-110) mg/dL Calcium (8.4-10.2) mg/dL Total Bilirubin (0.2-1.3) mg/dL Total Protein (6.3-8.2) g/dL Albumin (3.5-5.0) g/dL Crossmatch See Detail 03/02/24 03/02/24 03/02/24 Range/Units 05:44 06:19 11:45 WBC (3.8-10.6) k/uL RBC (4.30-5.90) m/uL Hgb (13.0-17.5) gm/dL Hct (39.0-53.0) % Chloride 113 H (98-107) mmol/L Carbon Dioxide 21 L (22-30) mmol/L Glucose 131 H (74-99) mg/dL POC Glucose (mg/dL) 155 H 139 H (70-110) mg/dL Calcium 7.6 L (8.4-10.2) mg/dL Total Bilirubin 1.5 H (0.2-1.3) mg/dL Total Protein 4.9 L (6.3-8.2) g/dL Albumin 2.3 L (3.5-5.0) g/dL Crossmatch Microbiology - Last 24 Hours (Table) 02/25/24 07:21 Blood Culture - Final Blood 02/27/24 03:05 Blood Culture - Preliminary Blood
--- NOTE | 2024-03-02 14:10 | P.PN ---
Subjective Progress Note Date: 03/02/24 This is a 68-year-old male patient who is currently intubated on mechanical ventilator. The patient was taken to the operating room for acute cholecystitis and bacteremia. The patient was found to have severe acute cholecystitis and the patient was initially supposed to have a laparoscopic cholecystectomy and this was converted to an open procedure. The patient was found to have significant adhesions. The gallbladder was taken out. The patient encountered bleeding and estimated blood loss was in the order of 1000 cc. The patient accordingly was given a total of 1.5 L of crystalloid in the operating room, 1 unit of packed RBC, a total of 1000 cc of albumin. Output from the BRADLEY drain is minimal at this point in time. The patient is currently on propofol running at 15 mcg/kg/min. He is on assist-control mode of mechanical ventilation at a rate of 16, tidal volume of 400, FiO2 40% with a PEEP of 5. The blood pressure was soft in the ICU and the patient was given additional liter of lactated Ringer. Blood gas showed a pH of 7.38 with a pCO2 of 40 and pO2 of more than 420. FiO2 was dropped accordingly. Chest x-ray shows borderline heart size and some atelectatic change in the left midlung. The patient's blood culture showing Enterococcus faecium and based on that the patient was kept on a combination of Zosyn and daptomycin. No pressors for now. Note that the patient is known to have previous history of CVA. He has insulin-dependent diabetes mellitus and hypertension hyperlipidemia and Lewy body dementia and Parkinson's disease. He has also history of obstructive sleep apnea. His gallbladder ultrasound that was done at the time of admission showed acute cholecystitis with distended gallbladder wall thickening and the CT of the chest that was done on 02/23/2024 showed no evidence of any pulmonary embolism. The lungs were essentially clear from any acute pulmonary filtration. On 02/25/2024, the patient remains intubated on the mechanical ventilator. No significant events overnight. The patient is postop day #1 following an open cholecystectomy. Output from the BRADLEY drain is minimal at this point in time. The patient is currently on propofol which is running at 20 mcg/kg/min. He remains on assist-control mode of mechanical ventilation at rate of 60, tidal volume of 450, FiO2 of 30% with a PEEP of 5. Blood gas showed a pH of 7.41 with a pCO2 of 42 and pO2 of 155. The patient was given a total of 2 units of packed RBC postop. He was also given a unit of platelets. No active bleeding. Remains on lactated Ringer at rate of 125 cc an hour. Remains NPO. No pressors for now and the norepinephrine has been discontinued. The white cell count of 12.2 with a hemoglobin 9.8 and a platelet count of 201. BUN is 22 with a creatinine 0.9 and his sodium level is 136. AST is 196, ALT is 139 with an alkaline phosphatase of 115. Cultures positive for Enterococcus faecium and the patient remains on a combination of Zosyn and daptomycin. Afebrile. He modynamically stable at this point in time. 02/26/2024, the patient is quite lethargic, sleepy, rigid, slightly responsive to verbal stimulation. He grimaces to painful stimulation. To my understanding, the patient has significant Lewy body dementia with chronic rigidity and cognitive impairment. The patient remains on the mechanical ventilator. Off sedation. Currently on assist-control mode with rate of 16, tidal volume of 400 and FiO2 of 30% with a PEEP of 5. The blood gas from today shows a pH of 7.48 with a pCO2 of 38 and pO2 of 87. Chest x-ray from today shows patchy opacity in the right lung base/atelectasis. Orogastric and orotracheal tube are both in place. The patient is hemodynamically stable. The patient is afebrile. The patient on lactated Ringer at rate of 125 cc an hour. BRADLEY drain output is serous. The LFTs are essentially within normal limits. Sodium is at 136, BUN is 20 with a creatinine of 0.8 and a potassium levels of 3.8. The white cell count 11.2 with a hemoglobin 8.4 and a platelet count of 146. Remains on Zosyn and daptomycin. No other significant events overnight. 02/27/2024, the patient is extubated and the patient is currently on 2 L of oxygen by nasal cannula. Significant neurologic impairment and cognitive impairment and rigidity. Does not communicate. Does not follow any simple commands. Unable to swallow. Respiratory status is stable. Hemodynamically stable. Repeat chest x-ray was done today and the patient was found to have some right- sided atelectasis and small right-sided pleural effusion. Abdomen is nondistended. Surgical wound site is dry clean and intact. BRADLEY drain is in place. Output overnight was elevated and the patient produced approximately 490 cc over the past 8 hours and currently the output is down to 5 to 10 cc an hour. Output is somewhat bloody/serosanguineous. Remains on lactated Ringer at 125 cc an hour. No pressors. Remains on Zosyn and vancomycin. Hemoglobin is down to 7.3 with a white cell count of 13.2. Electrolytes are all within normal limits. Afebrile. 02/28/2024, the patient is being seen for a follow-up. The patient got transferred out of the intensive care unit yesterday after being extubated. For now, the patient has an NG tube placed and the patient is sleeping Glucerna for enteral feeding and nutritional support. The abdominal scar is dry clean and intact. BRADLEY drain is in place and the output is in the order of 10 cc an hour. Hemoglobin has dropped down to 6.3 and the patient will receive another unit of packed RBC. No evidence of any GI bleeding at this point in time. No coffee- ground emesis. Hemodynamically stable. Neurologic status is unchanged and the patient has significant neurologic impairment due to his Lewy body dementia. The white cell count 11, hemoglobin is 6.3 and a platelet count of 195, BUN is 21 with a creatinine of 0.7. Stable 2 L of oxygen by nasal cannula with a pulse ox of 98%. The patient is postop day #4 following an open cholecystectomy. The patient is seen today February 29, 2024 in follow-up on the regular medical floor. He is currently sitting up in bed. Awake and alert in no acute distress. Maintaining O2 saturation in the 90s on 2 L/min per nasal cannula. Nasogastric tube remains in place. He is being nourished with Glucerna at 60 MLS per hour. He has lactated Ringer's at 75 MLS per hour. BRADLEY drain remains in place. Abdominal dressing is dry and intact. Blood cultures were positive for Enterococcus faecium VRE. Follow-up blood cultures revealing no growth. White count 11.3. Hemoglobin 7.1. Platelets 240. Sodium 138. Potassium 3.6. Bicarb 24. BUN 20. Creatinine 0.79. Glucose 140. He remains on daptomycin and Zosyn. Chest x-ray reveals evidence of a right pleural effusion. Ultrasound today reveals only a 3.6 cm pocket. He is status post 3 units of packed red blood cells and 1 unit of platelets this admission. The patient is seen today March 01, 2024 in follow-up on the regular medical floor. He is currently resting in bed. He is maintaining O2 saturations in the 90s on 2 L/min per nasal cannula. His nasogastric tube had to be replaced as the patient had pulled it out earlier. Follow-up chest x-ray shows the nasogastric tube in place with needing advancement of 10 cm. There is a continued moderate right size pleural effusion with associated consolidation/atelectasis. Improved aeration of the right upper lung. Initial blood cultures were positive for Enterococcus faecium VRE. Follow-up blood cultures revealed no growth. He remains on antibiotics in the form of Zosyn and daptomycin. He is being nourished with Glucerna at 60 MLS per hour. White count 12.1. Hemoglobin 6.7. Platelets 258. Sodium 143. Potassium 3.9. Bicarb 24. BUN 19. Creatinine 0.9. Glucose 121. He is receiving a fourth unit of packed red blood cells this admission. The patient is seen today March 02, 2024 in follow-up on the regular medical floor. He is currently resting in bed. Arousable, weak. Maintaining good O2 saturations in the mid 90s on 2 L/min per nasal cannula. Remains slightly afebrile. Hemodynamically stable. He has pulled out another nasogastric tube. He is currently on daptomycin and Zosyn. Blood cultures were initially positive for Enterococcus faecium VRE. Follow-up blood cultures are revealing no growth. White count 12.8. Hemoglobin 8.8. Platelets 419. Sodium 138. Potassium 4.0. Bicarb 21. BUN 20. Creatinine 0.70. Glucose 131. Objective - Vital Signs Vital signs: Vital Signs Temp 100.5 F H 03/02/24 07:05 Pulse 82 03/02/24 07:05 Resp 15 03/02/24 07:05 BP 138/66 03/02/24 07:05 Pulse Ox 93 L 03/02/24 08:58 FiO2 30 02/26/24 15:10 Intake & Output 03/01/24 03/02/24 03/02/24 18:59 06:59 18:59 Intake Total 310 Output Total 830 Balance -520 Weight 89 kg 89 kg Intake: Blood Product 310 Rc As-1 Unit 310 [id number] Output: Drainage 30 Right Abdomen 30 Urine 800 Other: Voiding Method Indwelling Catheter Indwelling Catheter # Voids 300 ABP, PAP, CO, CI - Last Documented Arterial Blood Pressure 117/42 - Exam GENERAL EXAM: Alert, weak, cognitively impaired, 68-year-old male, on 2 L nasal cannula, in no apparent distress. HEAD: Normocephalic. EYES: Normal reaction of pupils, equal size. NOSE: Place. Clear with pink turbinates. Nasogastric tube secured in place. THROAT: No erythema or exudates. NECK: No masses, no JVD. CHEST: No chest wall deformity. LUNGS: Equal air entry with no crackles, wheeze, rhonchi or dullness. CVS: S1 and S2 normal with no audible murmur, regular rhythm. ABDOMEN: Surgical incision clean dry and well-approximated. BRADLEY drain remains in place. SPINE: No scoliosis or deformity SKIN: No rashes CENTRAL NERVOUS SYSTEM: Cognitively impaired, tone is normal in all 4 extremities. EXTREMITIES: There is no peripheral edema. No clubbing, no cyanosis. Peripheral pulses are intact. - Labs CBC & Chem 7: 03/02/24 05:44 03/02/24 05:44 Labs: Abnormal Lab Results - Last 24 Hours (Table) 02/28/24 03/01/24 03/02/24 Range/Units 04:40 23:49 05:44 WBC 12.8 H (3.8-10.6) k/uL RBC 3.13 L (4.30-5.90) m/uL Hgb 8.8 L D (13.0-17.5) gm/dL Hct 27.9 L (39.0-53.0) % Chloride (98-107) mmol/L Carbon Dioxide (22-30) mmol/L Glucose (74-99) mg/dL POC Glucose (mg/dL) 112 H (70-110) mg/dL Calcium (8.4-10.2) mg/dL Total Bilirubin (0.2-1.3) mg/dL Total Protein (6.3-8.2) g/dL Albumin (3.5-5.0) g/dL Crossmatch See Detail 03/02/24 03/02/24 03/02/24 Range/Units 05:44 06:19 11:45 WBC (3.8-10.6) k/uL RBC (4.30-5.90) m/uL Hgb (13.0-17.5) gm/dL Hct (39.0-53.0) % Chloride 113 H (98-107) mmol/L Carbon Dioxide 21 L (22-30) mmol/L Glucose 131 H (74-99) mg/dL POC Glucose (mg/dL) 155 H 139 H (70-110) mg/dL Calcium 7.6 L (8.4-10.2) mg/dL Total Bilirubin 1.5 H (0.2-1.3) mg/dL Total Protein 4.9 L (6.3-8.2) g/dL Albumin 2.3 L (3.5-5.0) g/dL Crossmatch Microbiology - Last 24 Hours (Table) 02/26/24 03:58 Blood Culture - Final Blood 02/25/24 07:21 Blood Culture - Final Blood 02/27/24 03:05 Blood Culture - Preliminary Blood Assessment and Plan Assessment: Acute cholecystitis and the patient underwent an open cholecystectomy. The patient is currently postop day #7. Significant blood loss intraoperatively and the patient was resuscitated with fluids, colloids/albumin and received 3 units of packed RBC and one platelets. Current hemoglobin 8.8. Received a total of 4 units of packed red blood cells. No evidence of any acute bleeding and the output from the BRADLEY drain is minimal at this point in time. Acute enterococcal septicemia secondary to cholecystitis and the patient is currently on a combination of daptomycin and Zosyn. The patient has Enterococcus faecium VRE in the blood cultures Acute hypoxemic respiratory failure post gallbladder surgery. Patient was extubated to nasal cannula on 02/26/2024, currently on 2 L of oxygen by nasal cannula. This x-ray continues to show right-sided pleural effusion Previous history of CVA History of hypertension Hyperlipidemia Lewy body dementia with Parkinson disease at baseline with significant motor rigidity and cognitive impairment Poorly responsive most of the time, unable to take anything by mouth. Nasog astric tube remains in place Plan: The patient was seen and evaluated X-ray, labs and medications reviewed Titrate down the FiO2 as tolerated Continue antibiotics per ID service The patient had pulled out his nasogastric tube again, reinserted again today Continue tube feedings for nutritional support Prognosis remains quite poor I have personally seen and examined the patient, performed the documentation and the assessment and plan as written. Number of minutes spent on the visit: 10.
--- NOTE | 2024-03-02 15:41 | P.PN ---
Subjective Progress Note Date: 03/02/24 68-year-old male with a past medical history of hypertension, hyperlipidemia, CVA, insulin-dependent diabetes mellitus, Lewy body dementia, Parkinson's disease, and obstructive sleep apnea. He presented to the emergency department 02/22/2024 with a chief complaint of chest pain. Altered facility, patient evaluation emergency department. Vital signs upon arrival show blood pressure 138/79, heart rate 90, respiratory rate 19, temperature 98.4 F, and SpO2 98% on room air. EKG showing normal sinus rhythm at 91 bpm with right bundle branch block. Chest x-ray completed negative for acute cardiopulmonary process. Labs completed and reviewed. CBC showing leukocytosis with WBC count of 14.7 otherwise normal findings. Coagulation profile showing elevated PT of 12.9, INR of 1.2, and D-dimer of 1.93. BMP unremarkable with exception of mild hyperglycemia with glucose of 179. Liver profile showing hyperbilirubinemia with elevated transaminases with total bili of 2.2, AST of 224, and alkaline phosphatase of 233. Troponin was negative at less than 0.012. CTA chest completed negative for PE. Patient was admitted under our services with consultation to cardiology. Gallbladder ultrasound was ordered and results reviewed. Radiologist reporting findings concerning for acute cholecystitis with distended gallbladder, wall thickening with pericholecystic fluid and tumefactive sludge. Consult placed to general surgeon. Patient underwent cholecystectomy. Procedure complicated by significant blood loss. Patient was subsequently moved to medical ICU for further recovery. Blood cultures 1 out of 2 growing Enterococcus, likely VRE. ID also following. Patient currently in medical ICU. Now extubated. Hemoglobin relatively stable. Out of the ICU, on [facility] floors. Still having further drop in hemoglobin. 03/01 Patient was seen and examined. NG tube pulled out yesterday, re-inserted today. He is currently on 3L NC. CBC WBC 12.1, Hg 6.7, Hct 20.7. BMP Cl 110, BUN/Cr 21.56, glu 121, Ca 7.2. Antibiotics include Daptomycin 500 mg IV QD and Zosyn 3.375g IV TID. Tmax 101.9F 02/28 and 99.8F on 03/01. ID considering CT AP. Repeat BCx has been negative so far. 03/02 Patient was seen and examined. Transfused 1 PRBC yesterday. Hg improved from 6.7-8.8. CT AP ordered yesterday showing free fluid and free air with drainage tube in the gallbladder fossa, mottled gas near the drainage catheter tip, free air in the abdomen under the right diaphragm, right pleural effusion with consolidation, trace left pleural effusion, large amount of stool. Maintained on Daptomycin 500 mg IV QD and Zosyn 3.375g IV TID. CBC WBC 12.8, RBC 3.13, Hg 8.8, Hct 27.9. CMP Cl 113, bicarb 21, glu 131, Ca 7.6, T. Bili 1.5, alb 2.3. Tmax 100.7F over the past 24H. General: Not in acute distress Derm: Warm, dry Head: Atraumatic, normocephalic, symmetric Eyes: EOMI, pupils equal and reactive, anicteric sclera Mouth: No lip lesion, mucus membranes moist Cardiovascular: S1S2 reg, no murmur Lungs: CTA bilateral, no rhonchi, no rales, no accessory muscle use, supplemental oxygen Abdominal: Soft, nontender to palpation, abdominal binder in place, BRADLEY drain in place Ext: No gross muscle atrophy, no edema, no contractures Psych: Drowsy, cooperative, oriented x 1 Acute cholecystitis status postcholecystectomy VRE bacteremia: Patient currently on IV daptomycin 500 mg every 24 hours (D7), IV Zosyn 3.375 g every 8 hours (D7). Repeat BCx negative so far. Discussed with Dr. Edgar, no new findings on CT, continue current antibiotic regimen. Acute encephalopathy: Likely metabolic versus septic. Fall precautions. Acute blood loss anemia: Intraoperatively. Status post 4 units of PRBCs, and 1 unit of platelets. Monitor CBC. Transfuse if Hg < 7. Acute hypoxic respiratory failure due to right pleural effusion: Pulmonary on board. Insulin-dependent diabetes: Sliding scale insulin, every 6 hours, monitor for hy poglycemia. Resolved: Hemorrhagic shock, Ventilator dependent respiratory failure Chronic: Lewy body dementia, Parkinson's disease Depression History of CVA History of hypertension Dyslipidemia RONNELL Objective - Vital Signs Vital signs: Vital Signs Temp 100.2 F H 03/02/24 14:00 Pulse 84 03/02/24 14:00 Resp 15 03/02/24 14:00 BP 137/76 03/02/24 14:00 Pulse Ox 93 L 03/02/24 14:00 FiO2 30 02/26/24 15:10 Intake & Output 03/01/24 03/02/24 03/02/24 18:59 06:59 18:59 Intake Total 310 Output Total 830 10 Balance -520 -10 Weight 89 kg 89 kg Intake: Blood Product 310 Rc As-1 Unit 310 [id number] Output: Drainage 30 10 Right Abdomen 30 10 Urine 800 Other: Voiding Method Indwelling Catheter Indwelling Catheter Indwelling Catheter # Voids 300 ABP, PAP, CO, CI - Last Documented Arterial Blood Pressure 117/42 - Labs CBC & Chem 7: 03/02/24 05:44 03/02/24 05:44 Labs: Abnormal Lab Results - Last 24 Hours (Table) 02/28/24 03/01/24 03/02/24 Range/Units 04:40 23:49 05:44 WBC 12.8 H (3.8-10.6) k/uL RBC 3.13 L (4.30-5.90) m/uL Hgb 8.8 L D (13.0-17.5) gm/dL Hct 27.9 L (39.0-53.0) % Chloride (98-107) mmol/L Carbon Dioxide (22-30) mmol/L Glucose (74-99) mg/dL POC Glucose (mg/dL) 112 H (70-110) mg/dL Calcium (8.4-10.2) mg/dL Total Bilirubin (0.2-1.3) mg/dL Total Protein (6.3-8.2) g/dL Albumin (3.5-5.0) g/dL Crossmatch See Detail 03/02/24 03/02/24 03/02/24 Range/Units 05:44 06:19 11:45 WBC (3.8-10.6) k/uL RBC (4.30-5.90) m/uL Hgb (13.0-17.5) gm/dL Hct (39.0-53.0) % Chloride 113 H (98-107) mmol/L Carbon Dioxide 21 L (22-30) mmol/L Glucose 131 H (74-99) mg/dL POC Glucose (mg/dL) 155 H 139 H (70-110) mg/dL Calcium 7.6 L (8.4-10.2) mg/dL Total Bilirubin 1.5 H (0.2-1.3) mg/dL Total Protein 4.9 L (6.3-8.2) g/dL Albumin 2.3 L (3.5-5.0) g/dL Crossmatch Microbiology - Last 24 Hours (Table) 02/26/24 03:58 Blood Culture - Final Blood 02/25/24 07:21 Blood Culture - Final Blood 02/27/24 03:05 Blood Culture - Preliminary Blood
[2024-03-02 16:39] LABS: Glucose,Whole Blood 125 mg/dL (70-110)
[2024-03-02] MEDS ORDERED: levETIRAcetam IV 500 MG in SODIUM CHLORIDE 0.9% 250 ML IVPB STA (21:54)
[2024-03-02] MEDS: ACETAMINOPHEN IV (For NPO) 1,000 MG in EMPTY BAG 1 BAG IVPB STA (22:51)
[2024-03-02] MEDS: levETIRAcetam IV 500 MG/5 ML VIAL IVP STA (22:51)
[2024-03-03 00:09] LABS: Glucose,Whole Blood 106 mg/dL (70-110)
[2024-03-03 06:01] LABS: Glucose,Whole Blood 103 mg/dL (70-110)
[2024-03-03 09:14] LABS: Basophils % (A) 0 %; Eosinophils # (A) 0.4 k/uL (0-0.7); Eosinophils % (A) 3 %; HCT 26.3 % (39.0-53.0); HGB 8.3 gm/dL (13.0-17.5); Hypochromasia Slight; Lymphocytes % (A) 8 %; MCH 28.3 pg (25.0-35.0); MCHC 31.5 g/dL (31.0-37.0); Mean Platelet Volume 8.3; Monocytes # (A) 0.7 k/uL (0-1.0); Monocytes % (A) 5 %; Neutrophils # (A) 10.4 k/uL (1.3-7.7); Neutrophils % (A) 82 %; Platelet Count 421 k/uL (150-450); RBC 2.93 m/uL (4.30-5.90); RDW 15.3 % (11.5-15.5); WBC 12.6 k/uL (3.8-10.6)
[2024-03-03 09:31] LABS: African American GFR (CKD) >90 (>60 ml/min/1.73 sqM); Anion Gap 4 mmol/L; Blood Urea Nitrogen 19 mg/dL (9-20); Calcium 7.6 mg/dL (8.4-10.2); Carbon Dioxide 22 mmol/L (22-30); Chloride 114 mmol/L (98-107); Glucose 92 mg/dL (74-99); Non-African American GFR(CKD) >90 (>60 ml/min/1.73 sqM); Potassium 3.9 mmol/L (3.5-5.1); Sodium 140 mmol/L (137-145)
--- NOTE | 2024-03-03 12:33 | P.PN ---
Subjective Progress Note Date: 03/03/24 This is a 68-year-old male patient who is currently intubated on mechanical ventilator. The patient was taken to the operating room for acute cholecystitis and bacteremia. The patient was found to have severe acute cholecystitis and the patient was initially supposed to have a laparoscopic cholecystectomy and this was converted to an open procedure. The patient was found to have significant adhesions. The gallbladder was taken out. The patient encountered bleeding and estimated blood loss was in the order of 1000 cc. The patient accordingly was given a total of 1.5 L of crystalloid in the operating room, 1 unit of packed RBC, a total of 1000 cc of albumin. Output from the BRADLEY drain is minimal at this point in time. The patient is currently on propofol running at 15 mcg/kg/min. He is on assist-control mode of mechanical ventilation at a rate of 16, tidal volume of 400, FiO2 40% with a PEEP of 5. The blood pressure was soft in the ICU and the patient was given additional liter of lactated Ringer. Blood gas showed a pH of 7.38 with a pCO2 of 40 and pO2 of more than 420. FiO2 was dropped accordingly. Chest x-ray shows borderline heart size and some atelectatic change in the left midlung. The patient's blood culture showing Enterococcus faecium and based on that the patient was kept on a combination of Zosyn and daptomycin. No pressors for now. Note that the patient is known to have previous history of CVA. He has insulin-dependent diabetes mellitus and hypertension hyperlipidemia and Lewy body dementia and Parkinson's disease. He has also history of obstructive sleep apnea. His gallbladder ultrasound that was done at the time of admission showed acute cholecystitis with distended gallbladder wall thickening and the CT of the chest that was done on 02/23/2024 showed no evidence of any pulmonary embolism. The lungs were essentially clear from any acute pulmonary filtration. On 02/25/2024, the patient remains intubated on the mechanical ventilator. No significant events overnight. The patient is postop day #1 following an open cholecystectomy. Output from the BRADLEY drain is minimal at this point in time. The patient is currently on propofol which is running at 20 mcg/kg/min. He remains on assist-control mode of mechanical ventilation at rate of 60, tidal volume of 450, FiO2 of 30% with a PEEP of 5. Blood gas showed a pH of 7.41 with a pCO2 of 42 and pO2 of 155. The patient was given a total of 2 units of packed RBC postop. He was also given a unit of platelets. No active bleeding. Remains on lactated Ringer at rate of 125 cc an hour. Remains NPO. No pressors for now and the norepinephrine has been discontinued. The white cell count of 12.2 with a hemoglobin 9.8 and a platelet count of 201. BUN is 22 with a creatinine 0.9 and his sodium level is 136. AST is 196, ALT is 139 with an alkaline phosphatase of 115. Cultures positive for Enterococcus faecium and the patient remains on a combination of Zosyn and daptomycin. Afebrile. He modynamically stable at this point in time. 02/26/2024, the patient is quite lethargic, sleepy, rigid, slightly responsive to verbal stimulation. He grimaces to painful stimulation. To my understanding, the patient has significant Lewy body dementia with chronic rigidity and cognitive impairment. The patient remains on the mechanical ventilator. Off sedation. Currently on assist-control mode with rate of 16, tidal volume of 400 and FiO2 of 30% with a PEEP of 5. The blood gas from today shows a pH of 7.48 with a pCO2 of 38 and pO2 of 87. Chest x-ray from today shows patchy opacity in the right lung base/atelectasis. Orogastric and orotracheal tube are both in place. The patient is hemodynamically stable. The patient is afebrile. The patient on lactated Ringer at rate of 125 cc an hour. BRADLEY drain output is serous. The LFTs are essentially within normal limits. Sodium is at 136, BUN is 20 with a creatinine of 0.8 and a potassium levels of 3.8. The white cell count 11.2 with a hemoglobin 8.4 and a platelet count of 146. Remains on Zosyn and daptomycin. No other significant events overnight. 02/27/2024, the patient is extubated and the patient is currently on 2 L of oxygen by nasal cannula. Significant neurologic impairment and cognitive impairment and rigidity. Does not communicate. Does not follow any simple commands. Unable to swallow. Respiratory status is stable. Hemodynamically stable. Repeat chest x-ray was done today and the patient was found to have some right- sided atelectasis and small right-sided pleural effusion. Abdomen is nondistended. Surgical wound site is dry clean and intact. BRADLEY drain is in place. Output overnight was elevated and the patient produced approximately 490 cc over the past 8 hours and currently the output is down to 5 to 10 cc an hour. Output is somewhat bloody/serosanguineous. Remains on lactated Ringer at 125 cc an hour. No pressors. Remains on Zosyn and vancomycin. Hemoglobin is down to 7.3 with a white cell count of 13.2. Electrolytes are all within normal limits. Afebrile. 02/28/2024, the patient is being seen for a follow-up. The patient got transferred out of the intensive care unit yesterday after being extubated. For now, the patient has an NG tube placed and the patient is sleeping Glucerna for enteral feeding and nutritional support. The abdominal scar is dry clean and intact. BRADLEY drain is in place and the output is in the order of 10 cc an hour. Hemoglobin has dropped down to 6.3 and the patient will receive another unit of packed RBC. No evidence of any GI bleeding at this point in time. No coffee- ground emesis. Hemodynamically stable. Neurologic status is unchanged and the patient has significant neurologic impairment due to his Lewy body dementia. The white cell count 11, hemoglobin is 6.3 and a platelet count of 195, BUN is 21 with a creatinine of 0.7. Stable 2 L of oxygen by nasal cannula with a pulse ox of 98%. The patient is postop day #4 following an open cholecystectomy. The patient is seen today February 29, 2024 in follow-up on the regular medical floor. He is currently sitting up in bed. Awake and alert in no acute distress. Maintaining O2 saturation in the 90s on 2 L/min per nasal cannula. Nasogastric tube remains in place. He is being nourished with Glucerna at 60 MLS per hour. He has lactated Ringer's at 75 MLS per hour. BRADLEY drain remains in place. Abdominal dressing is dry and intact. Blood cultures were positive for Enterococcus faecium VRE. Follow-up blood cultures revealing no growth. White count 11.3. Hemoglobin 7.1. Platelets 240. Sodium 138. Potassium 3.6. Bicarb 24. BUN 20. Creatinine 0.79. Glucose 140. He remains on daptomycin and Zosyn. Chest x-ray reveals evidence of a right pleural effusion. Ultrasound today reveals only a 3.6 cm pocket. He is status post 3 units of packed red blood cells and 1 unit of platelets this admission. The patient is seen today March 01, 2024 in follow-up on the regular medical floor. He is currently resting in bed. He is maintaining O2 saturations in the 90s on 2 L/min per nasal cannula. His nasogastric tube had to be replaced as the patient had pulled it out earlier. Follow-up chest x-ray shows the nasogastric tube in place with needing advancement of 10 cm. There is a continued moderate right size pleural effusion with associated consolidation/atelectasis. Improved aeration of the right upper lung. Initial blood cultures were positive for Enterococcus faecium VRE. Follow-up blood cultures revealed no growth. He remains on antibiotics in the form of Zosyn and daptomycin. He is being nourished with Glucerna at 60 MLS per hour. White count 12.1. Hemoglobin 6.7. Platelets 258. Sodium 143. Potassium 3.9. Bicarb 24. BUN 19. Creatinine 0.9. Glucose 121. He is receiving a fourth unit of packed red blood cells this admission. The patient is seen today March 02, 2024 in follow-up on the regular medical floor. He is currently resting in bed. Arousable, weak. Maintaining good O2 saturations in the mid 90s on 2 L/min per nasal cannula. Remains slightly afebrile. Hemodynamically stable. He has pulled out another nasogastric tube. He is currently on daptomycin and Zosyn. Blood cultures were initially positive for Enterococcus faecium VRE. Follow-up blood cultures are revealing no growth. White count 12.8. Hemoglobin 8.8. Platelets 419. Sodium 138. Potassium 4.0. Bicarb 21. BUN 20. Creatinine 0.70. Glucose 131. The patient is seen today March 03, 2024 in follow-up on the regular medical floor. He is a bit more awake today. Answering some simple questions. He is maintaining good O2 saturations in the 90s on 2 L/min per nasal cannula. He has pulled out his nasogastric tubes on multiple occasions. He is currently out again. Remains on antibiotics in the form of daptomycin and Zosyn. Recent chest x-ray continues to show some right-sided pleural effusion. Ultrasound of the chest did not reveal any significant fluid. No plans for thoracentesis at this time. Follow-up blood cultures revealed no growth. Urine culture revealed no growth. White count 12.6. Hemoglobin 8.3. Platelets 421. Sodium 140. Potassium 3.9. Bicarb 22. BUN 19. Creatinine 0.72. Objective - Vital Signs Vital signs: Vital Signs Temp 98.7 F 03/03/24 08:00 Pulse 63 03/03/24 08:00 Resp 17 03/03/24 08:00 BP 114/84 03/03/24 08:00 Pulse Ox 98 03/03/24 08:40 FiO2 30 02/26/24 15:10 Intake & Output 03/02/24 03/03/24 03/03/24 18:59 06:59 18:59 Output Total 1610 1870 Balance -1610 -1870 Weight 96 kg Output: Drainage 10 20 Right Abdomen 10 20 Urine 1600 1850 Other: Voiding Method Indwelling Catheter Indwelling Catheter Indwelling Catheter # Bowel Movements 1 1 ABP, PAP, CO, CI - Last Documented Arterial Blood Pressure 117/42 - Exam GENERAL EXAM: Alert, cognitively impaired, 68-year-old male, answering a few yes and no questions, on 2 L nasal cannula, in no apparent distress. HEAD: Normocephalic. EYES: Normal reaction of pupils, equal size. NOSE: Place. Clear with pink turbinates. Nasogastric tube secured in place. THROAT: No erythema or exudates. NECK: No masses, no JVD. CHEST: No chest wall deformity. LUNGS: Equal air entry with no crackles, wheeze, rhonchi or dullness. CVS: S1 and S2 normal with no audible murmur, regular rhythm. ABDOMEN: Surgical incision clean dry and well-approximated. BRADLEY drain remains in place. SPINE: No scoliosis or deformity SKIN: No rashes CENTRAL NERVOUS SYSTEM: Cognitively impaired, tone is normal in all 4 extremities. EXTREMITIES: There is no peripheral edema. No clubbing, no cyanosis. Peripheral pulses are intact. - Labs CBC & Chem 7: 03/03/24 08:46 03/03/24 08:46 Labs: Abnormal Lab Results - Last 24 Hours (Table) 03/02/24 03/03/24 03/03/24 Range/Units 16:37 08:46 08:46 WBC 12.6 H (3.8-10.6) k/uL RBC 2.93 L (4.30-5.90) m/uL Hgb 8.3 L (13.0-17.5) gm/dL Hct 26.3 L (39.0-53.0) % Neutrophils # 10.4 H (1.3-7.7) k/uL Chloride 114 H (98-107) mmol/L POC Glucose (mg/dL) 125 H (70-110) mg/dL Calcium 7.6 L (8.4-10.2) mg/dL Microbiology - Last 24 Hours (Table) 03/01/24 13:12 Blood Culture - Preliminary Blood 02/26/24 03:58 Blood Culture - Final Blood Assessment and Plan Assessment: Acute cholecystitis and the patient underwent an open cholecystectomy. The patient is currently postop day #8. Significant blood loss intraoperatively and the patient was resuscitated with fluids, colloids/albumin and received 3 units of packed RBC and one platelets. Current hemoglobin 8.8. Received a total of 4 units of packed red blood cells. No evidence of any acute bleeding and the output from the BRADLEY drain is minimal at this point in time. Acute enterococcal septicemia secondary to cholecystitis and the patient is currently on a combination of daptomycin and Zosyn. The patient has Enterococcus faecium VRE in the blood cultures Acute hypoxemic respiratory failure post gallbladder surgery. Patient was extubated to nasal cannula on 02/26/2024, currently on 2 L of oxygen by nasal cannula. Chest x-ray continues to show right-sided pleural effusion Previous history of CVA History of hypertension Hyperlipidemia Lewy body dementia with Parkinson disease at baseline with significant motor rig idity and cognitive impairment Poorly responsive most of the time, unable to take anything by mouth. Nasogastric tube has been placed placed and subsequently removed by the patient on multiple occasions Plan: The patient was seen and evaluated Labs and medications reviewed Titrate down the FiO2 as tolerated No plans for thoracentesis based on the ultra sound of the right chest Continue antibiotics per ID service The patient has repeatedly pulled out his nasogastric tube Plan is to return to [facility] versus subacute rehab at discharge This patient was seen independently by the pulmonary nurse practitioner addressing pulmonary issues I have personally seen and examined the patient, performed the documentation and the assessment and plan as written. Number of minutes spent on the visit: 23.
[2024-03-03 12:41] LABS: Glucose,Whole Blood 89 mg/dL (70-110)
--- NOTE | 2024-03-03 14:24 | P.PN ---
Subjective Progress Note Date: 03/03/24 68-year-old male with a past medical history of hypertension, hyperlipidemia, CVA, insulin-dependent diabetes mellitus, Lewy body dementia, Parkinson's disease, and obstructive sleep apnea. He presented to the emergency department 02/22/2024 with a chief complaint of chest pain. Altered facility, patient evaluation emergency department. Vital signs upon arrival show blood pressure 138/79, heart rate 90, respiratory rate 19, temperature 98.4 F, and SpO2 98% on room air. EKG showing normal sinus rhythm at 91 bpm with right bundle branch block. Chest x-ray completed negative for acute cardiopulmonary process. Labs completed and reviewed. CBC showing leukocytosis with WBC count of 14.7 otherwise normal findings. Coagulation profile showing elevated PT of 12.9, INR of 1.2, and D-dimer of 1.93. BMP unremarkable with exception of mild hyperglycemia with glucose of 179. Liver profile showing hyperbilirubinemia with elevated transaminases with total bili of 2.2, AST of 224, and alkaline phosphatase of 233. Troponin was negative at less than 0.012. CTA chest completed negative for PE. Patient was admitted under our services with consultation to cardiology. Gallbladder ultrasound was ordered and results reviewed. Radiologist reporting findings concerning for acute cholecystitis with distended gallbladder, wall thickening with pericholecystic fluid and tumefactive sludge. Consult placed to general surgeon. Patient underwent cholecystectomy. Procedure complicated by significant blood loss. Patient was subsequently moved to medical ICU for further recovery. Blood cultures 1 out of 2 growing Enterococcus, likely VRE. ID also following. Patient currently in medical ICU. Now extubated. Hemoglobin relatively stable. Out of the ICU, on [facility] floors. Still having further drop in hemoglobin. 03/01 Patient was seen and examined. NG tube pulled out yesterday, re-inserted today. He is currently on 3L NC. CBC WBC 12.1, Hg 6.7, Hct 20.7. BMP Cl 110, BUN/Cr 21.56, glu 121, Ca 7.2. Antibiotics include Daptomycin 500 mg IV QD and Zosyn 3.375g IV TID. Tmax 101.9F 02/28 and 99.8F on 03/01. ID considering CT AP. Repeat BCx has been negative so far. 03/02 Patient was seen and examined. Transfused 1 PRBC yesterday. Hg improved from 6.7-8.8. CT AP ordered yesterday showing free fluid and free air with drainage tube in the gallbladder fossa, mottled gas near the drainage catheter tip, free air in the abdomen under the right diaphragm, right pleural effusion with consolidation, trace left pleural effusion, large amount of stool. Maintained on Daptomycin 500 mg IV QD and Zosyn 3.375g IV TID. CBC WBC 12.8, RBC 3.13, Hg 8.8, Hct 27.9. CMP Cl 113, bicarb 21, glu 131, Ca 7.6, T. Bili 1.5, alb 2.3. Tmax 100.7F over the past 24H. 03/03 Patient was seen and examined. NG tube pulled out again, surgery to evaluate replacement. LR switched to D5 NS to prevent hypoglycemia. Maintained on Daptomycin 500 mg IV QD and Zosyn 3.375g IV TID. CBC WBC 12.6, RBC 2.93, Hg 8.3, Hct 26.3. CMP Cl 114, Ca 7.6. Tmax 100.6F over the past 24H. General: Not in acute distress Derm: Warm, dry Head: Atraumatic, normocephalic, symmetric Eyes: EOMI, pupils equal and reactive, anicteric sclera Mouth: No lip lesion, mucus membranes moist Cardiovascular: S1S2 reg, no murmur Lungs: CTA bilateral, no rhonchi, no rales, no accessory muscle use, supplemental oxygen Abdominal: Soft, nontender to palpation, abdominal binder in place, BRADLEY drain in place Ext: No gross muscle atrophy, no edema, no contractures Psych: Drowsy, cooperative, oriented x 1 Acute cholecystitis status postcholecystectomy managed by surgery VRE bacteremia due to above: Patient currently on IV daptomycin 500 mg every 24 hours (D8), IV Zosyn 3.375 g every 8 hours (D8). Repeat BCx negative so far. Discussed with Dr. Edgar, no new findings on CT, continue current antibiotic regimen. Acute encephalopathy: Likely metabolic versus septic. Fall precautions. Acute blood loss anemia: Intraoperatively. Status post 4 units of PRBCs, and 1 unit of platelets. Monitor CBC. Transfuse if Hg < 7. Acute hypoxic respiratory failure due to right pleural effusion: Pulmonary on board. Insulin-dependent diabetes: Sliding scale insulin, every 6 hours, monitor for hypoglycemia. Resolved: Hemorrhagic shock, Ventilator dependent respiratory failure Chronic: Lewy body dementia, Parkinson's disease Depression History of CVA History of hypertension Dyslipidemia RONNELL Patient is poor prognosis. Objective - Vital Signs Vital signs: Vital Signs Temp 98.7 F 03/03/24 08:00 Pulse 63 03/03/24 08:00 Resp 17 03/03/24 08:00 BP 114/84 03/03/24 08:00 Pulse Ox 98 03/03/24 08:40 FiO2 30 02/26/24 15:10 Intake & Output 03/02/24 03/03/24 03/03/24 18:59 06:59 18:59 Output Total 1610 1870 Balance -1610 -1870 Weight 96 kg Output: Drainage 10 20 Right Abdomen 10 20 Urine 1600 1850 Other: Voiding Method Indwelling Catheter Indwelling Catheter Indwelling Catheter # Bowel Movements 1 1 ABP, PAP, CO, CI - Last Documented Arterial Blood Pressure 117/42 - Labs CBC & Chem 7: 03/03/24 08:46 03/03/24 08:46 Labs: Abnormal Lab Results - Last 24 Hours (Table) 03/02/24 03/03/24 03/03/24 Range/Units 16:37 08:46 08:46 WBC 12.6 H (3.8-10.6) k/uL RBC 2.93 L (4.30-5.90) m/uL Hgb 8.3 L (13.0-17.5) gm/dL Hct 26.3 L (39.0-53.0) % Neutrophils # 10.4 H (1.3-7.7) k/uL Chloride 114 H (98-107) mmol/L POC Glucose (mg/dL) 125 H (70-110) mg/dL Calcium 7.6 L (8.4-10.2) mg/dL Microbiology - Last 24 Hours (Table) 02/27/24 03:05 Blood Culture - Final Blood 03/01/24 13:12 Blood Culture - Preliminary Blood 02/26/24 03:58 Blood Culture - Final Blood
[2024-03-03] MEDS: DEXTROSE 5%-0.9% NACL 1,000 ML IV SCH (14:28)
--- NOTE | 2024-03-03 15:55 | P.PN ---
Subjective Progress Note Date: 03/03/24 Principal diagnosis: Reason for follow-up is acute cholecystitis and bacteremia Patient is a 68-year-old male with a past medical history significant for diabetes mellitus hypertension sleep apnea CVA TIA Parkinson disease patient was brought into the hospital initially for chest pain has been diagnosed with acute cholecystitis and also have VRE bacteremia. Patient is status post laparoscopic cholecystectomy on 02/24/2024 subsequent requiring admission to the ICU on the ventilator. On today's evaluation that is 03/03/2024, the patient did have resolution of his fever and is afebrile this morning, the patient is breathing comfortably on room air this afternoon patient remains to be lethargic though arousable however not reliable historian no vomiting or diarrhea or any other changes reported by the nursing staff. Patient white count is down to 12.6 creatinine 0.72, repeat cultures pending Objective - Vital Signs Vital signs: Vital Signs Temp 98.1 F 03/03/24 14:00 Pulse 71 03/03/24 14:00 Resp 17 03/03/24 14:00 BP 131/76 03/03/24 14:00 Pulse Ox 97 03/03/24 14:00 FiO2 30 02/26/24 15:10 Intake & Output 03/02/24 03/03/24 03/03/24 18:59 06:59 18:59 Output Total 1610 1870 Balance -1610 -1870 Weight 96 kg Output: Drainage 10 20 Right Abdomen 10 20 Urine 1600 1850 Other: Voiding Method Indwelling Catheter Indwelling Catheter Indwelling Catheter # Bowel Movements 1 1 ABP, PAP, CO, CI - Last Documented Arterial Blood Pressure 117/42 - Exam GENERAL DESCRIPTION: An elderly male lying in bed in no distress RESPIRATORY SYSTEM: Unlabored breathing , decreased breath sounds at bases HEART: S1 S2 regular rate and rhythm , ABDOMEN: Soft , no tenderness EXTREMITIES: No edema feet - Labs CBC & Chem 7: 03/03/24 08:46 03/03/24 08:46 Labs: Abnormal Lab Results - Last 24 Hours (Table) 03/02/24 03/03/24 03/03/24 Range/Units 16:37 08:46 08:46 WBC 12.6 H (3.8-10.6) k/uL RBC 2.93 L (4.30-5.90) m/uL Hgb 8.3 L (13.0-17.5) gm/dL Hct 26.3 L (39.0-53.0) % Neutrophils # 10.4 H (1.3-7.7) k/uL Chloride 114 H (98-107) mmol/L POC Glucose (mg/dL) 125 H (70-110) mg/dL Calcium 7.6 L (8.4-10.2) mg/dL Microbiology - Last 24 Hours (Table) 02/27/24 03:05 Blood Culture - Final Blood 03/01/24 13:12 Blood Culture - Preliminary Blood 02/26/24 03:58 Blood Culture - Final Blood Assessment and Plan (1) Sepsis Current Visit: Yes Status: Acute Code(s): A41.9 - SEPSIS, UNSPECIFIED ORGANISM SNOMED Code(s): 14023687 (2) Cholecystitis Current Visit: Yes Status: Acute Code(s): K81.9 - CHOLECYSTITIS, UNSPECIFIED SNOMED Code(s): 94571602 (3) VRE bacteremia Current Visit: Yes Status: Acute Code(s): R78.81 - BACTEREMIA; B95.2 - ENTEROCOCCUS THE CAUSE OF DISEASES CLASSIFIED ELSEWHERE; Z16.21 - RESISTANCE TO VANCOMYCIN SNOMED Code(s): 2926431728 (4) Allergy to cephalosporin Current Visit: Yes Status: Acute Code(s): Z88.1 - ALLERGY STATUS TO OTHER ANTIBIOTIC AGENTS SNOMED Code(s): 343427688 Plan: 1patient presented hospital with sepsis in this patient who did have fever elevated white count source is acute cholecystitis usually associated with a gram-negative bacteria and also secondary to Enterococcus 2-VRE bacteremia source could be acute gastritis 3-blood culture has been repeated and so far negative 4-patient did have CT abdominal pelvis which mention fluid collection questio nably postop versus hematoma and may have responsible for his fever repeat cultures currently pending 5-we will continue the patient with the Zosyn and daptomycin while waiting for repeat cultures and would benefit from continuation of IV antibiotic on discharge to the long term Dictation was produced using [employer] dictation software. please excuse any grammatical, word or spelling errors. Time with Patient: Less than 30
--- NOTE | 2024-03-03 15:59 | P.PN ---
Subjective Progress Note Date: 03/03/24 CHIEF COMPLAINT: Acute cholecystitis HISTORY OF PRESENT ILLNESS: Patient is postop day #8 status post open cholecystectomy. Patient pulled out his NG tube again. NG tube currently remains out. He did have a soft loose bowel movement. He had a low-grade temp of 100.6 last night. WBC 12.6 Hgb 8.3 platelets 421 PHYSICAL EXAM: VITAL SIGNS: Reviewed. GENERAL: no acute distress. ABDOMEN: Soft. Nondistended. Incisional dressing right upper quadrant clean dry and intact. BRADLEY drain serosanguineous NEUROLOGIC: Lethargic and confused ASSESSMENT: 1. Acute on chronic cholecystitis 2. VRE bacteremia 3. Coagulopathy PLAN: -When patient becomes more alert recommend evaluation for speech therapy to initiate diet -Continue antibiotics per ID service -Continue to hold Plavix -Continue to monitor hemoglobin -Consult PT OT. Discussed with nursing staff to increase patient's activity level Physician Jig Operator note has been reviewed by physician. Signing provider agrees with the documented findings, assessment, and plan of care. I have personally seen and examined the patient, reviewed the OUTBOARD MOTORS EXPERIMENTAL MECHANIC /PAs history, exam and MDM and agree with the assessment and plan as written. Based on total visit time, I have performed more than 50% of the visit. As above: Patient doing better today. He is awake and alert. He is tolerating liquids. BRADLEY drain serosanguineous. Low-grade fever. White blood cell count remains 12.6. Advance diet to pure. Continue antibiotics. Continue drain management. Objective - Vital Signs Vital signs: Vital Signs Temp 98.1 F 03/03/24 14:00 Pulse 71 03/03/24 14:00 Resp 17 03/03/24 14:00 BP 131/76 03/03/24 14:00 Pulse Ox 97 03/03/24 14:00 FiO2 30 02/26/24 15:10 Intake & Output 03/02/24 03/03/24 03/03/24 18:59 06:59 18:59 Output Total 1610 1870 Balance -1610 -1870 Weight 96 kg Output: Drainage 10 20 Right Abdomen 10 20 Urine 1600 1850 Other: Voiding Method Indwelling Catheter Indwelling Catheter Indwelling Catheter # Bowel Movements 1 1 ABP, PAP, CO, CI - Last Documented Arterial Blood Pressure 117/42 - Labs CBC & Chem 7: 03/03/24 08:46 03/03/24 08:46 Labs: Abnormal Lab Results - Last 24 Hours (Table) 03/02/24 03/03/24 03/03/24 Range/Units 16:37 08:46 08:46 WBC 12.6 H (3.8-10.6) k/uL RBC 2.93 L (4.30-5.90) m/uL Hgb 8.3 L (13.0-17.5) gm/dL Hct 26.3 L (39.0-53.0) % Neutrophils # 10.4 H (1.3-7.7) k/uL Chloride 114 H (98-107) mmol/L POC Glucose (mg/dL) 125 H (70-110) mg/dL Calcium 7.6 L (8.4-10.2) mg/dL Microbiology - Last 24 Hours (Table) 02/27/24 03:05 Blood Culture - Final Blood 03/01/24 13:12 Blood Culture - Preliminary Blood 02/26/24 03:58 Blood Culture - Final Blood
[2024-03-03 16:35] LABS: Glucose,Whole Blood 108 mg/dL (70-110)
[2024-03-03 23:52] LABS: Glucose,Whole Blood 119 mg/dL (70-110)
[2024-03-04 05:40] LABS: Glucose,Whole Blood 119 mg/dL (70-110)
[2024-03-04] MEDS: ZINC OXIDE PASTE (Z-GUARD) 1 APPLIC TOPICAL PRN (06:04)
[2024-03-04 08:39] LABS: HCT 28.9 % (39.0-53.0); HGB 9.2 gm/dL (13.0-17.5); Hypochromasia Slight; MCH 28.6 pg (25.0-35.0); MCHC 31.9 g/dL (31.0-37.0); MCV 89.6 fL (80.0-100.0); Mean Platelet Volume 7.7; Platelet Count 511 k/uL (150-450); RBC 3.22 m/uL (4.30-5.90); RDW 15.3 % (11.5-15.5); WBC 11.3 k/uL (3.8-10.6)
[2024-03-04 08:56] LABS: African American GFR (CKD) >90 (>60 ml/min/1.73 sqM); Anion Gap 2 mmol/L; Blood Urea Nitrogen 16 mg/dL (9-20); Calcium 7.8 mg/dL (8.4-10.2); Carbon Dioxide 25 mmol/L (22-30); Chloride 112 mmol/L (98-107); Glucose 117 mg/dL (74-99); Non-African American GFR(CKD) >90 (>60 ml/min/1.73 sqM); Potassium 3.8 mmol/L (3.5-5.1); Sodium 139 mmol/L (137-145)
--- NOTE | 2024-03-04 11:38 | P.PN ---
Subjective Progress Note Date: 03/04/24 CHIEF COMPLAINT: Acute cholecystitis HISTORY OF PRESENT ILLNESS: Patient is postop day #9 status post open cholecystectomy. Patient is sitting up in bed. He is more awake today. Per nursing staff he was able to eat a small amount of the pured diet. He did have a loose bowel movement. No nausea or vomiting reported. Pain controlled. No further fevers. WBC is down from 12.6-11.3 Hgb 9.2 platelets 511 creatinine 0.68. PHYSICAL EXAM: VITAL SIGNS: Reviewed. GENERAL: no acute distress. ABDOMEN: Soft. Nondistended. Medial aspect of incision with small amount of serosanguineous drainage, BRADLEY drain minimal sanguinous output, looks old NEUROLOGIC: More awake and alert ASSESSMENT: 1. Acute on chronic cholecystitis 2. VRE bacteremia 3. Coagulopathy PLAN: -Continue pured diet -Continue antibiotics per ID service -Continue to increase activity level Physician Full Fashioned Garment Knitter note has been reviewed by physician. Signing provider agrees with the documented findings, assessment, and plan of care. Objective - Vital Signs Vital signs: Vital Signs Temp 97.5 F L 03/04/24 08:00 Pulse 70 03/04/24 08:00 Resp 18 03/04/24 08:00 BP 126/70 03/04/24 08:00 Pulse Ox 97 03/04/24 08:00 FiO2 30 02/26/24 15:10 Intake & Output 03/03/24 03/04/24 03/04/24 18:59 06:59 18:59 Intake Total 240 240 Output Total 825 153 Balance -585 87 Weight 96.5 kg Intake: Oral 240 240 Output: Drainage 3 Right Abdomen 3 Urine 825 150 Uretheral (Fernandes) 150 Other: Voiding Method Indwelling Catheter Indwelling Catheter Indwelling Catheter # Bowel Movements 4 ABP, PAP, CO, CI - Last Documented Arterial Blood Pressure 117/42 - Labs CBC & Chem 7: 03/04/24 08:08 03/04/24 08:08 Labs: Abnormal Lab Results - Last 24 Hours (Table) 03/03/24 03/04/24 03/04/24 Range/Units 23:50 05:38 08:08 WBC 11.3 H (3.8-10.6) k/uL RBC 3.22 L (4.30-5.90) m/uL Hgb 9.2 L (13.0-17.5) gm/dL Hct 28.9 L (39.0-53.0) % Plt Count 511 H (150-450) k/uL Chloride (98-107) mmol/L Glucose (74-99) mg/dL POC Glucose (mg/dL) 119 H 119 H (70-110) mg/dL Calcium (8.4-10.2) mg/dL 03/04/24 Range/Units 08:08 WBC (3.8-10.6) k/uL RBC (4.30-5.90) m/uL Hgb (13.0-17.5) gm/dL Hct (39.0-53.0) % Plt Count (150-450) k/uL Chloride 112 H (98-107) mmol/L Glucose 117 H (74-99) mg/dL POC Glucose (mg/dL) (70-110) mg/dL Calcium 7.8 L (8.4-10.2) mg/dL Microbiology - Last 24 Hours (Table) 03/01/24 13:12 Blood Culture - Preliminary Blood 02/27/24 03:05 Blood Culture - Final Blood
[2024-03-04 11:48] LABS: Glucose,Whole Blood 125 mg/dL (70-110)
--- NOTE | 2024-03-04 13:19 | P.PN ---
Subjective Progress Note Date: 03/04/24 This is a 68-year-old male patient who is currently intubated on mechanical ventilator. The patient was taken to the operating room for acute cholecystitis and bacteremia. The patient was found to have severe acute cholecystitis and the patient was initially supposed to have a laparoscopic cholecystectomy and this was converted to an open procedure. The patient was found to have significant adhesions. The gallbladder was taken out. The patient encountered bleeding and estimated blood loss was in the order of 1000 cc. The patient accordingly was given a total of 1.5 L of crystalloid in the operating room, 1 unit of packed RBC, a total of 1000 cc of albumin. Output from the BRADLEY drain is minimal at this point in time. The patient is currently on propofol running at 15 mcg/kg/min. He is on assist-control mode of mechanical ventilation at a rate of 16, tidal volume of 400, FiO2 40% with a PEEP of 5. The blood pressure was soft in the ICU and the patient was given additional liter of lactated Ringer. Blood gas showed a pH of 7.38 with a pCO2 of 40 and pO2 of more than 420. FiO2 was dropped accordingly. Chest x-ray shows borderline heart size and some atelectatic change in the left midlung. The patient's blood culture showing Enterococcus faecium and based on that the patient was kept on a combination of Zosyn and daptomycin. No pressors for now. Note that the patient is known to have previous history of CVA. He has insulin-dependent diabetes mellitus and hypertension hyperlipidemia and Lewy body dementia and Parkinson's disease. He has also history of obstructive sleep apnea. His gallbladder ultrasound that was done at the time of admission showed acute cholecystitis with distended gallbladder wall thickening and the CT of the chest that was done on 02/23/2024 showed no evidence of any pulmonary embolism. The lungs were essentially clear from any acute pulmonary filtration. On 02/25/2024, the patient remains intubated on the mechanical ventilator. No significant events overnight. The patient is postop day #1 following an open cholecystectomy. Output from the BRADLEY drain is minimal at this point in time. The patient is currently on propofol which is running at 20 mcg/kg/min. He remains on assist-control mode of mechanical ventilation at rate of 60, tidal volume of 450, FiO2 of 30% with a PEEP of 5. Blood gas showed a pH of 7.41 with a pCO2 of 42 and pO2 of 155. The patient was given a total of 2 units of packed RBC postop. He was also given a unit of platelets. No active bleeding. Remains on lactated Ringer at rate of 125 cc an hour. Remains NPO. No pressors for now and the norepinephrine has been discontinued. The white cell count of 12.2 with a hemoglobin 9.8 and a platelet count of 201. BUN is 22 with a creatinine 0.9 and his sodium level is 136. AST is 196, ALT is 139 with an alkaline phosphatase of 115. Cultures positive for Enterococcus faecium and the patient remains on a combination of Zosyn and daptomycin. Afebrile. He modynamically stable at this point in time. 02/26/2024, the patient is quite lethargic, sleepy, rigid, slightly responsive to verbal stimulation. He grimaces to painful stimulation. To my understanding, the patient has significant Lewy body dementia with chronic rigidity and cognitive impairment. The patient remains on the mechanical ventilator. Off sedation. Currently on assist-control mode with rate of 16, tidal volume of 400 and FiO2 of 30% with a PEEP of 5. The blood gas from today shows a pH of 7.48 with a pCO2 of 38 and pO2 of 87. Chest x-ray from today shows patchy opacity in the right lung base/atelectasis. Orogastric and orotracheal tube are both in place. The patient is hemodynamically stable. The patient is afebrile. The patient on lactated Ringer at rate of 125 cc an hour. BRADLEY drain output is serous. The LFTs are essentially within normal limits. Sodium is at 136, BUN is 20 with a creatinine of 0.8 and a potassium levels of 3.8. The white cell count 11.2 with a hemoglobin 8.4 and a platelet count of 146. Remains on Zosyn and daptomycin. No other significant events overnight. 02/27/2024, the patient is extubated and the patient is currently on 2 L of oxygen by nasal cannula. Significant neurologic impairment and cognitive impairment and rigidity. Does not communicate. Does not follow any simple commands. Unable to swallow. Respiratory status is stable. Hemodynamically stable. Repeat chest x-ray was done today and the patient was found to have some right- sided atelectasis and small right-sided pleural effusion. Abdomen is nondistended. Surgical wound site is dry clean and intact. BRADLEY drain is in place. Output overnight was elevated and the patient produced approximately 490 cc over the past 8 hours and currently the output is down to 5 to 10 cc an hour. Output is somewhat bloody/serosanguineous. Remains on lactated Ringer at 125 cc an hour. No pressors. Remains on Zosyn and vancomycin. Hemoglobin is down to 7.3 with a white cell count of 13.2. Electrolytes are all within normal limits. Afebrile. 02/28/2024, the patient is being seen for a follow-up. The patient got transferred out of the intensive care unit yesterday after being extubated. For now, the patient has an NG tube placed and the patient is sleeping Glucerna for enteral feeding and nutritional support. The abdominal scar is dry clean and intact. BRADLEY drain is in place and the output is in the order of 10 cc an hour. Hemoglobin has dropped down to 6.3 and the patient will receive another unit of packed RBC. No evidence of any GI bleeding at this point in time. No coffee- ground emesis. Hemodynamically stable. Neurologic status is unchanged and the patient has significant neurologic impairment due to his Lewy body dementia. The white cell count 11, hemoglobin is 6.3 and a platelet count of 195, BUN is 21 with a creatinine of 0.7. Stable 2 L of oxygen by nasal cannula with a pulse ox of 98%. The patient is postop day #4 following an open cholecystectomy. The patient is seen today February 29, 2024 in follow-up on the regular medical floor. He is currently sitting up in bed. Awake and alert in no acute distress. Maintaining O2 saturation in the 90s on 2 L/min per nasal cannula. Nasogastric tube remains in place. He is being nourished with Glucerna at 60 MLS per hour. He has lactated Ringer's at 75 MLS per hour. BRADLEY drain remains in place. Abdominal dressing is dry and intact. Blood cultures were positive for Enterococcus faecium VRE. Follow-up blood cultures revealing no growth. White count 11.3. Hemoglobin 7.1. Platelets 240. Sodium 138. Potassium 3.6. Bicarb 24. BUN 20. Creatinine 0.79. Glucose 140. He remains on daptomycin and Zosyn. Chest x-ray reveals evidence of a right pleural effusion. Ultrasound today reveals only a 3.6 cm pocket. He is status post 3 units of packed red blood cells and 1 unit of platelets this admission. The patient is seen today March 01, 2024 in follow-up on the regular medical floor. He is currently resting in bed. He is maintaining O2 saturations in the 90s on 2 L/min per nasal cannula. His nasogastric tube had to be replaced as the patient had pulled it out earlier. Follow-up chest x-ray shows the nasogastric tube in place with needing advancement of 10 cm. There is a continued moderate right size pleural effusion with associated consolidation/atelectasis. Improved aeration of the right upper lung. Initial blood cultures were positive for Enterococcus faecium VRE. Follow-up blood cultures revealed no growth. He remains on antibiotics in the form of Zosyn and daptomycin. He is being nourished with Glucerna at 60 MLS per hour. White count 12.1. Hemoglobin 6.7. Platelets 258. Sodium 143. Potassium 3.9. Bicarb 24. BUN 19. Creatinine 0.9. Glucose 121. He is receiving a fourth unit of packed red blood cells this admission. The patient is seen today March 02, 2024 in follow-up on the regular medical floor. He is currently resting in bed. Arousable, weak. Maintaining good O2 saturations in the mid 90s on 2 L/min per nasal cannula. Remains slightly afebrile. Hemodynamically stable. He has pulled out another nasogastric tube. He is currently on daptomycin and Zosyn. Blood cultures were initially positive for Enterococcus faecium VRE. Follow-up blood cultures are revealing no growth. White count 12.8. Hemoglobin 8.8. Platelets 419. Sodium 138. Potassium 4.0. Bicarb 21. BUN 20. Creatinine 0.70. Glucose 131. The patient is seen today March 03, 2024 in follow-up on the regular medical floor. He is a bit more awake today. Answering some simple questions. He is maintaining good O2 saturations in the 90s on 2 L/min per nasal cannula. He has pulled out his nasogastric tubes on multiple occasions. He is currently out again. Remains on antibiotics in the form of daptomycin and Zosyn. Recent chest x-ray continues to show some right-sided pleural effusion. Ultrasound of the chest did not reveal any significant fluid. No plans for thoracentesis at this time. Follow-up blood cultures revealed no growth. Urine culture revealed no growth. White count 12.6. Hemoglobin 8.3. Platelets 421. Sodium 140. Potassium 3.9. Bicarb 22. BUN 19. Creatinine 0.72. The patient is seen today March 04, 2024 in follow-up on the regular medical floor. Postoperative day #9. He is currently resting comfortably in bed. Awake and alert in no acute distress. He is more vocal today compared to yesterday. He is maintaining good O2 saturations in the 90s on 2-1/2 L/min per nasal cannula. He was eating and drinking well at breakfast. He remains on D5W and half-normal saline at 50 MLS per hour. Antibiotics in the form of Zosyn and daptomycin. Heparin for DVT prophylaxis. Plavix remains on hold white count 11.3. Hemoglobin 9.2. Platelets 511. Sodium 139. Potassium 3.8. Bicarb 25. BUN 16. Creatinine 0.68. Glucose 117. Objective - Vital Signs Vital signs: Vital Signs Temp 97.5 F L 03/04/24 08:00 Pulse 70 03/04/24 08:00 Resp 18 03/04/24 08:00 BP 126/70 03/04/24 08:00 Pulse Ox 97 03/04/24 08:00 FiO2 30 02/26/24 15:10 Intake & Output 03/03/24 03/04/24 03/04/24 18:59 06:59 18:59 Intake Total 240 360 Output Total 825 153 Balance -585 207 Weight 96.5 kg Intake: Oral 240 360 Output: Drainage 3 Right Abdomen 3 Urine 825 150 Uretheral (Fernandes) 150 Other: Voiding Method Indwelling Catheter Indwelling Catheter Indwelling Catheter # Bowel Movements 4 ABP, PAP, CO, CI - Last Documented Arterial Blood Pressure 117/42 - Exam GENERAL EXAM: Alert, cognitively impaired, 68-year-old male, answering yes and no questions, on 2.5 L nasal cannula, in no apparent distress. HEAD: Normocephalic. EYES: Normal reaction of pupils, equal size. NOSE: Place. Clear with pink turbinates. Nasogastric tube secured in place. THROAT: No erythema or exudates. NECK: No masses, no JVD. CHEST: No chest wall deformity. LUNGS: Equal air entry with no crackles, wheeze, rhonchi or dullness. CVS: S1 and S2 normal with no audible murmur, regular rhythm. ABDOMEN: Surgical incision clean dry and well-approximated. BRADLEY drain remains in place. SPINE: No scoliosis or deformity SKIN: No rashes CENTRAL NERVOUS SYSTEM: Cognitively impaired, tone is normal in all 4 extremities. EXTREMITIES: There is no peripheral edema. No clubbing, no cyanosis. Peripheral pulses are intact. - Labs CBC & Chem 7: 03/04/24 08:08 03/04/24 08:08 Labs: Abnormal Lab Results - Last 24 Hours (Table) 03/03/24 03/04/24 03/04/24 Range/Units 23:50 05:38 08:08 WBC 11.3 H (3.8-10.6) k/uL RBC 3.22 L (4.30-5.90) m/uL Hgb 9.2 L (13.0-17.5) gm/dL Hct 28.9 L (39.0-53.0) % Plt Count 511 H (150-450) k/uL Chloride (98-107) mmol/L Glucose (74-99) mg/dL POC Glucose (mg/dL) 119 H 119 H (70-110) mg/dL Calcium (8.4-10.2) mg/dL 03/04/24 03/04/24 Range/Units 08:08 11:47 WBC (3.8-10.6) k/uL RBC (4.30-5.90) m/uL Hgb (13.0-17.5) gm/dL Hct (39.0-53.0) % Plt Count (150-450) k/uL Chloride 112 H (98-107) mmol/L Glucose 117 H (74-99) mg/dL POC Glucose (mg/dL) 125 H (70-110) mg/dL Calcium 7.8 L (8.4-10.2) mg/dL Microbiology - Last 24 Hours (Table) 03/01/24 13:12 Blood Culture - Preliminary Blood 02/27/24 03:05 Blood Culture - Final Blood Assessment and Plan Assessment: Acute cholecystitis and the patient underwent an open cholecystectomy. The patient is currently postop day #9. Significant blood loss intraoperatively and the patient was resuscitated with fluids, colloids/albumin and received 3 units of packed RBC and one platelets. Current hemoglobin 8.8. Received a total of 4 units of packed red blood cells. No evidence of any acute bleeding and the output from the BRADLEY drain is minimal at this point in time. Acute enterococcal septicemia secondary to cholecystitis and the patient is currently on a combination of daptomycin and Zosyn. The patient has Enterococcus faecium VRE in the blood cultures Acute hypoxemic respiratory failure post gallbladder surgery. Patient was extubated to nasal cannula on 02/26/2024, currently on 2 L of oxygen by nasal cannula. Chest x-ray continues to show right-sided pleural effusion Previous history of CVA History of hypertension Hyperlipidemia Lewy body dementia with Parkinson disease at baseline with significant motor rigidity and cognitive impairment More awake and alert today. Tolerating a dysphagia 1 pured diet with one-to-one supervision Plan: The patient was seen and evaluated Labs and medications reviewed Patient is more awake and interactive today Tolerating a dysphagia level 1 pured diet Titrate down the FiO2 as tolerated Continue antibiotics per ID service Currently on Zosyn and daptomycin Plan is for subacute rehab at discharge I have personally seen and examined the patient, performed the documentation and the assessment and plan as written. Number of minutes spent on the visit: 10.
[2024-03-04] MEDS: HEPARIN SODIUM,PORCINE 5,000 UNIT/ML 1 ML VIAL SQ SCH (13:45)
--- NOTE | 2024-03-04 14:57 | P.PN ---
Subjective Progress Note Date: 03/04/24 Principal diagnosis: Reason for follow-up is acute cholecystitis and bacteremia Patient is a 68-year-old male with a past medical history significant for diabetes mellitus hypertension sleep apnea CVA TIA Parkinson disease patient was brought into the hospital initially for chest pain has been diagnosed with acute cholecystitis and also have VRE bacteremia. Patient is status post laparoscopic cholecystectomy on 02/24/2024 subsequent requiring admission to the ICU on the ventilator. On today's evaluation that is 03/04/2024, Patient is afebrile patient is more awake and alert today, patient is breathing comfortably on 2 L nasal cannula oxygen patient denies any chest pain occasional cough patient abdominal pain has decreased intensity no nausea vomiting no diarrhea has been reported. Patient white count is down to 11.3, creatinine 0.68 blood culture repeat has been negative Objective - Vital Signs Vital signs: Vital Signs Temp 97.5 F L 03/04/24 08:00 Pulse 70 03/04/24 08:00 Resp 18 03/04/24 08:00 BP 126/70 03/04/24 08:00 Pulse Ox 97 03/04/24 08:00 FiO2 30 02/26/24 15:10 Intake & Output 03/03/24 03/04/24 03/04/24 18:59 06:59 18:59 Intake Total 240 240 Output Total 825 153 Balance -585 87 Weight 96.5 kg Intake: Oral 240 240 Output: Drainage 3 Right Abdomen 3 Urine 825 150 Uretheral (Fernandes) 150 Other: Voiding Method Indwelling Catheter Indwelling Catheter Indwelling Catheter # Bowel Movements 4 ABP, PAP, CO, CI - Last Documented Arterial Blood Pressure 117/42 - Exam GENERAL DESCRIPTION: An elderly male lying in bed in no distress RESPIRATORY SYSTEM: Unlabored breathing , decreased breath sounds at bases HEART: S1 S2 regular rate and rhythm , ABDOMEN: Soft , no tenderness EXTREMITIES: No edema feet - Labs CBC & Chem 7: 03/04/24 08:08 03/04/24 08:08 Labs: Abnormal Lab Results - Last 24 Hours (Table) 03/03/24 03/04/24 03/04/24 Range/Units 23:50 05:38 08:08 WBC 11.3 H (3.8-10.6) k/uL RBC 3.22 L (4.30-5.90) m/uL Hgb 9.2 L (13.0-17.5) gm/dL Hct 28.9 L (39.0-53.0) % Plt Count 511 H (150-450) k/uL Chloride (98-107) mmol/L Glucose (74-99) mg/dL POC Glucose (mg/dL) 119 H 119 H (70-110) mg/dL Calcium (8.4-10.2) mg/dL 03/04/24 Range/Units 08:08 WBC (3.8-10.6) k/uL RBC (4.30-5.90) m/uL Hgb (13.0-17.5) gm/dL Hct (39.0-53.0) % Plt Count (150-450) k/uL Chloride 112 H (98-107) mmol/L Glucose 117 H (74-99) mg/dL POC Glucose (mg/dL) (70-110) mg/dL Calcium 7.8 L (8.4-10.2) mg/dL Microbiology - Last 24 Hours (Table) 03/01/24 13:12 Blood Culture - Preliminary Blood 02/27/24 03:05 Blood Culture - Final Blood Assessment and Plan (1) Sepsis Current Visit: Yes Status: Acute Code(s): A41.9 - SEPSIS, UNSPECIFIED ORGANISM SNOMED Code(s): 83029705 (2) Cholecystitis Current Visit: Yes Status: Acute Code(s): K81.9 - CHOLECYSTITIS, UNSPECIFIED SNOMED Code(s): 53603577 (3) VRE bacteremia Current Visit: Yes Status: Acute Code(s): R78.81 - BACTEREMIA; B95.2 - ENTEROCOCCUS THE CAUSE OF DISEASES CLASSIFIED ELSEWHERE; Z16.21 - RESISTANCE TO VANCOMYCIN SNOMED Code(s): 6126192690 (4) Allergy to cephalosporin Current Visit: Yes Status: Acute Code(s): Z88.1 - ALLERGY STATUS TO OTHER ANTIBIOTIC AGENTS SNOMED Code(s): 649098031 Plan: 1patient presented hospital with sepsis in this patient who did have fever elevated white count source is acute cholecystitis usually associated with a gram-negative bacteria and also secondary to Enterococcus 2-VRE bacteremia source could be acute gastritis 3-blood culture has been repeated and so far negative 4-patient did have CT abdominal pelvis which mention fluid collection questionably postop versus hematoma and may have responsible for his fever repeat cultures so far negative 5-patient seem to have shown clinical improvement afebrile white count trending down, we will continue the patient with the Zosyn and daptomycin x 7 days on discharge discussed with the admitting team and close outpatient follow-up Dictation was produced using [employer] dictation software. please excuse any grammatical, word or spelling errors. Time with Patient: Less than 30
--- NOTE | 2024-03-04 14:58 | P.PN ---
Subjective Progress Note Date: 03/02/24 Principal diagnosis: Reason for follow-up is acute cholecystitis and bacteremia Patient is a 68-year-old male with a past medical history significant for diabetes mellitus hypertension sleep apnea CVA TIA Parkinson disease patient was brought into the hospital initially for chest pain has been diagnosed with acute cholecystitis and also have VRE bacteremia. Patient is status post laparoscopic cholecystectomy on 02/24/2024 subsequent requiring admission to the ICU on the ventilator. On today's evaluation that is 03/02/2024,the patient did spike a low-grade fever of 100.5 F this morning, patient is breathing comfortably on 3 L nasal cannula oxygen the patient remains to be lethargic and did not provide any history no vomiting diarrhea and the changes reported by nursing staff. Patient white count is 12.8 creatinine 0.70, CT abdominal pelvis with intra-abdominal free air and fluid large amount of stool in the rectum Objective - Vital Signs Vital signs: Vital Signs Temp 100.2 F H 03/02/24 14:00 Pulse 84 03/02/24 14:00 Resp 15 03/02/24 14:00 BP 137/76 03/02/24 14:00 Pulse Ox 93 L 03/02/24 14:00 FiO2 30 02/26/24 15:10 Intake & Output 03/01/24 03/02/24 03/02/24 18:59 06:59 18:59 Intake Total 310 Output Total 830 Balance -520 Weight 89 kg 89 kg Intake: Blood Product 310 Rc As-1 Unit 310 [id number] Output: Drainage 30 Right Abdomen 30 Urine 800 Other: Voiding Method Indwelling Catheter Indwelling Catheter # Voids 300 ABP, PAP, CO, CI - Last Documented Arterial Blood Pressure 117/42 - Exam GENERAL DESCRIPTION: An elderly male lying in bed in no distress RESPIRATORY SYSTEM: Unlabored breathing , decreased breath sounds at bases HEART: S1 S2 regular rate and rhythm , ABDOMEN: Soft , no tenderness EXTREMITIES: No edema feet - Labs CBC & Chem 7: 03/03/24 08:46 03/03/24 08:46 Labs: Abnormal Lab Results - Last 24 Hours (Table) 02/28/24 03/01/24 03/02/24 Range/Units 04:40 23:49 05:44 WBC 12.8 H (3.8-10.6) k/uL RBC 3.13 L (4.30-5.90) m/uL Hgb 8.8 L D (13.0-17.5) gm/dL Hct 27.9 L (39.0-53.0) % Chloride (98-107) mmol/L Carbon Dioxide (22-30) mmol/L Glucose (74-99) mg/dL POC Glucose (mg/dL) 112 H (70-110) mg/dL Calcium (8.4-10.2) mg/dL Total Bilirubin (0.2-1.3) mg/dL Total Protein (6.3-8.2) g/dL Albumin (3.5-5.0) g/dL Crossmatch See Detail 03/02/24 03/02/24 03/02/24 Range/Units 05:44 06:19 11:45 WBC (3.8-10.6) k/uL RBC (4.30-5.90) m/uL Hgb (13.0-17.5) gm/dL Hct (39.0-53.0) % Chloride 113 H (98-107) mmol/L Carbon Dioxide 21 L (22-30) mmol/L Glucose 131 H (74-99) mg/dL POC Glucose (mg/dL) 155 H 139 H (70-110) mg/dL Calcium 7.6 L (8.4-10.2) mg/dL Total Bilirubin 1.5 H (0.2-1.3) mg/dL Total Protein 4.9 L (6.3-8.2) g/dL Albumin 2.3 L (3.5-5.0) g/dL Crossmatch Microbiology - Last 24 Hours (Table) 02/26/24 03:58 Blood Culture - Final Blood 02/25/24 07:21 Blood Culture - Final Blood 02/27/24 03:05 Blood Culture - Preliminary Blood Assessment and Plan (1) Sepsis Current Visit: Yes Status: Acute Code(s): A41.9 - SEPSIS, UNSPECIFIED ORGANISM SNOMED Code(s): 81155572 (2) Cholecystitis Current Visit: Yes Status: Acute Code(s): K81.9 - CHOLECYSTITIS, UNSPECIFIED SNOMED Code(s): 81877599 (3) VRE bacteremia Current Visit: Yes Status: Acute Code(s): R78.81 - BACTEREMIA; B95.2 - ENTEROCOCCUS THE CAUSE OF DISEASES CLASSIFIED ELSEWHERE; Z16.21 - RESISTANCE TO VANCOMYCIN SNOMED Code(s): 5283732511 (4) Allergy to cephalosporin Current Visit: Yes Status: Acute Code(s): Z88.1 - ALLERGY STATUS TO OTHER ANTIBIOTIC AGENTS SNOMED Code(s): 616394240 Plan: 1patient presented hospital with sepsis in this patient who did have fever elevated white count source is acute cholecystitis usually associated with a gram-negative bacteria and also secondary to Enterococcus 2-VRE bacteremia source could be acute gastritis 3-blood culture has been repeated and so far negative 4-patient did have CT abdominal pelvis which mention fluid collection questionably postop versus hematoma and may have responsible for his fever repeat cultures currently pending continue with the Zosyn and daptomycin Dictation was produced using [employer] dictation software. please excuse any grammatical, word or spelling errors. Time with Patient: Less than 30
--- NOTE | 2024-03-04 15:11 | P.PN ---
Subjective Progress Note Date: 03/04/24 68-year-old male with a past medical history of hypertension, hyperlipidemia, CVA, insulin-dependent diabetes mellitus, Lewy body dementia, Parkinson's disease, and obstructive sleep apnea. He presented to the emergency department 02/22/2024 with a chief complaint of chest pain. Altered facility, patient evaluation emergency department. Vital signs upon arrival show blood pressure 138/79, heart rate 90, respiratory rate 19, temperature 98.4 F, and SpO2 98% on room air. EKG showing normal sinus rhythm at 91 bpm with right bundle branch block. Chest x-ray completed negative for acute cardiopulmonary process. Labs completed and reviewed. CBC showing leukocytosis with WBC count of 14.7 otherwise normal findings. Coagulation profile showing elevated PT of 12.9, INR of 1.2, and D-dimer of 1.93. BMP unremarkable with exception of mild hyperglycemia with glucose of 179. Liver profile showing hyperbilirubinemia with elevated transaminases with total bili of 2.2, AST of 224, and alkaline phosphatase of 233. Troponin was negative at less than 0.012. CTA chest completed negative for PE. Patient was admitted under our services with consultation to cardiology. Gallbladder ultrasound was ordered and results reviewed. Radiologist reporting findings concerning for acute cholecystitis with distended gallbladder, wall thickening with pericholecystic fluid and sludge. Consult placed to general surgeon. Patient underwent cholecystectomy. Procedure complicated by significant blood loss. Patient was subsequently moved to medical ICU for further recovery. Blood cultures 1 out of 2 growing Enterococcus, likely VRE. ID also following. 03/01 Patient was seen and examined. NG tube pulled out yesterday, re-inserted today. He is currently on 3L NC. CBC WBC 12.1, Hg 6.7, Hct 20.7. BMP Cl 110, BUN/Cr 21.56, glu 121, Ca 7.2. Antibiotics include Daptomycin 500 mg IV QD and Zosyn 3.375g IV TID. Tmax 101.9F 02/28 and 99.8F on 03/01. ID considering CT AP. Repeat BCx has been negative so far. 03/02 Patient was seen and examined. Transfused 1 PRBC yesterday. Hg improved from 6.7-8.8. CT AP ordered yesterday showing free fluid and free air with drainage tube in the gallbladder fossa, mottled gas near the drainage catheter tip, free air in the abdomen under the right diaphragm, right pleural effusion with consolidation, trace left pleural effusion, large amount of stool. Maintained on Daptomycin 500 mg IV QD and Zosyn 3.375g IV TID. CBC WBC 12.8, RBC 3.13, Hg 8.8, Hct 27.9. CMP Cl 113, bicarb 21, glu 131, Ca 7.6, T. Bili 1.5, alb 2.3. Tmax 100.7F over the past 24H. 03/03 Patient was seen and examined. NG tube pulled out again, surgery to evaluate replacement. LR switched to D5 NS to prevent hypoglycemia. Maintained on Daptomycin 500 mg IV QD and Zosyn 3.375g IV TID. CBC WBC 12.6, RBC 2.93, Hg 8.3, Hct 26.3. CMP Cl 114, Ca 7.6. Tmax 100.6F over the past 24H. 03/04 Patient was seen and examined. More alert today. On NDD1 diet with 1:1 supervision. Maintained on Daptomycin 500 mg IV QD and Zosyn 3.375g IV TID. Afebrile over the past 24H. CBC WBC 11.3, RBC 3.22, Hg 9.2, Hct 28.9. CMP Cl 112, glu 117, Ca 7.8. Discussed with case management. Initially family decided on SNF however there is a long wait for bed placement. Family then OK with going back to [facility]. Discussed with Dr. Edgar, continue Daptomycin and Zosyn for 7 days. Order for PICC line placed. General: Not in acute distress Derm: Warm, dry Head: Atraumatic, normocephalic, symmetric Eyes: EOMI, pupils equal and reactive, anicteric sclera Mouth: No lip lesion, mucus membranes moist Cardiovascular: S1S2 reg, no murmur Lungs: CTA bilateral, no rhonchi, no rales, no accessory muscle use, supplemental oxygen Abdominal: Soft, nontender to palpation, abdominal binder in place, BRADLEY drain in place Ext: No gross muscle atrophy, no edema, no contractures Psych: Drowsy, cooperative, oriented x 1 Acute cholecystitis status postcholecystectomy managed by surgery VRE bacteremia due to above: Patient currently on IV daptomycin 500 mg every 24 hours (D9), IV Zosyn 3.375 g every 8 hours (D9). Repeat BCx negative so far. Discussed with Dr. Edgar, no new findings on CT, continue current antibiotic regimen. Acute encephalopathy: Likely metabolic versus septic. Fall precautions. Acute blood loss anemia: Intraoperatively. Status post 4 units of PRBCs, and 1 unit of platelets. Monitor CBC. Transfuse if Hg < 7. Acute hypoxic respiratory failure due to right pleural effusion: Pulmonary on board. Insulin-dependent diabetes: Sliding scale insulin, every 6 hours, monitor for hypoglycemia. Resolved: Hemorrhagic shock, Ventilator dependent respiratory failure Chronic: Lewy body dementia, Parkinson's disease Depression History of CVA History of hypertension Dyslipidemia RONNELL Plans for discharge to [facility] if able to obtain PICC and set up IV antibiotics to be continued at [facility]. Objective - Vital Signs Vital signs: Vital Signs Temp 97.7 F 03/04/24 13:30 Pulse 63 03/04/24 13:30 Resp 18 03/04/24 13:30 BP 132/79 03/04/24 13:30 Pulse Ox 95 03/04/24 13:30 FiO2 30 02/26/24 15:10 Intake & Output 03/03/24 03/04/24 03/04/24 18:59 06:59 18:59 Intake Total 240 360 Output Total 825 153 Balance -585 207 Weight 96.5 kg Intake: Oral 240 360 Output: Drainage 3 Right Abdomen 3 Urine 825 150 Uretheral (Fernandes) 150 Other: Voiding Method Indwelling Catheter Indwelling Catheter Indwelling Catheter # Bowel Movements 4 ABP, PAP, CO, CI - Last Documented Arterial Blood Pressure 117/42 - Labs CBC & Chem 7: 03/04/24 08:08 03/04/24 08:08 Labs: Abnormal Lab Results - Last 24 Hours (Table) 03/03/24 03/04/24 03/04/24 Range/Units 23:50 05:38 08:08 WBC 11.3 H (3.8-10.6) k/uL RBC 3.22 L (4.30-5.90) m/uL Hgb 9.2 L (13.0-17.5) gm/dL Hct 28.9 L (39.0-53.0) % Plt Count 511 H (150-450) k/uL Chloride (98-107) mmol/L Glucose (74-99) mg/dL POC Glucose (mg/dL) 119 H 119 H (70-110) mg/dL Calcium (8.4-10.2) mg/dL 03/04/24 03/04/24 Range/Units 08:08 11:47 WBC (3.8-10.6) k/uL RBC (4.30-5.90) m/uL Hgb (13.0-17.5) gm/dL Hct (39.0-53.0) % Plt Count (150-450) k/uL Chloride 112 H (98-107) mmol/L Glucose 117 H (74-99) mg/dL POC Glucose (mg/dL) 125 H (70-110) mg/dL Calcium 7.8 L (8.4-10.2) mg/dL Microbiology - Last 24 Hours (Table) 03/01/24 13:12 Blood Culture - Preliminary Blood 02/27/24 03:05 Blood Culture - Final Blood
[2024-03-04 18:09] LABS: Glucose,Whole Blood 142 mg/dL (70-110)
[2024-03-05 00:14] LABS: Glucose,Whole Blood 160 mg/dL (70-110)
[2024-03-05 05:37] LABS: HCT 25.4 % (39.0-53.0); HGB 8.2 gm/dL (13.0-17.5); Hypochromasia Slight; MCH 28.5 pg (25.0-35.0); MCHC 32.2 g/dL (31.0-37.0); MCV 88.4 fL (80.0-100.0); Mean Platelet Volume 8.3; Platelet Count 555 k/uL (150-450); Poikilocytosis Slight; RBC 2.87 m/uL (4.30-5.90); RDW 15.2 % (11.5-15.5)
[2024-03-05 06:06] LABS: Glucose,Whole Blood 153 mg/dL (70-110)
[2024-03-05 06:06] LABS: African American GFR (CKD) >90 (>60 ml/min/1.73 sqM); Anion Gap 3 mmol/L; Blood Urea Nitrogen 13 mg/dL (9-20); Calcium 7.5 mg/dL (8.4-10.2); Carbon Dioxide 25 mmol/L (22-30); Chloride 109 mmol/L (98-107); Glucose 130 mg/dL (74-99); Non-African American GFR(CKD) >90 (>60 ml/min/1.73 sqM); Potassium 3.4 mmol/L (3.5-5.1); Sodium 137 mmol/L (137-145)
[2024-03-05] MEDS: POTASSIUM CHLORIDE 10 MEQ in WATER FOR INJECTION 1 100ML.BAG IVPB SCH (08:42)
--- NOTE | 2024-03-05 09:32 | P.PN ---
Subjective Progress Note Date: 03/05/24 68-year-old male with a past medical history of hypertension, hyperlipidemia, CVA, insulin-dependent diabetes mellitus, Lewy body dementia, Parkinson's disease, and obstructive sleep apnea. He presented to the emergency department 02/22/2024 with a chief complaint of chest pain. Patient underwent extensive evaluation in the emergency department. Vital signs upon arrival show blood pressure 138/79, heart rate 90, respiratory rate 19, temperature 98.4 F, and SpO2 98% on room air. EKG showing normal sinus rhythm at 91 bpm with right bundle branch block. Chest x-ray completed negative for acute cardiopulmonary process. Labs completed and reviewed. CBC showing leukocytosis with WBC count of 14.7 otherwise normal findings. Coagulation profile showing elevated PT of 12.9, INR of 1.2, and D-dimer of 1.93. BMP unremarkable with exception of glucose of 179. Liver profile showing hyperbilirubinemia with elevated transaminases with total bili of 2.2, AST of 224, and alkaline phosphatase of 233. Troponin was negative at less than 0.012. CTA chest completed negative for PE. Patient was admitted under our services with consultation to cardiology. Gallbladder ultrasound showed findings concerning for acute cholecystitis with distended gallbladder, wall thickening with pericholecystic fluid and sludge. Consult placed to general surgeon. Patient underwent cholecystectomy. Procedure complicated by significant blood loss. Patient was subsequently moved to medical ICU for further recovery. Blood cultures 1 out of 2 growing Enterococcus, likely VRE, ID consulted. Eventually extubated and downgraded to the medical floor. He has persistent fevers, CT AP ordered showing free fluid and free air with drainage tube in the gallbladder fossa, mottled gas near the drainage catheter tip, free air in the abdomen under the right diaphragm, right pleural effusion with consolidation, trace left pleural effusion, large amount of stool. He is currently maintained on Daptomycin 500 mg IV QD and Zosyn 3.375g IV TID with plans to continue IV antibiotics for 7 days on discharge. 03/01 Patient was seen and examined. NG tube pulled out yesterday, re-inserted today. He is currently on 3L NC. CBC WBC 12.1, Hg 6.7, Hct 20.7. BMP Cl 110, BUN/Cr 21.56, glu 121, Ca 7.2. Antibiotics include Daptomycin 500 mg IV QD and Zosyn 3.375g IV TID. Tmax 101.9F 02/28 and 99.8F on 03/01. ID considering CT AP. Rep eat BCx has been negative so far. 03/02 Patient was seen and examined. Transfused 1 PRBC yesterday. Hg improved from 6.7-8.8. CT AP ordered yesterday showing free fluid and free air with drainage tube in the gallbladder fossa, mottled gas near the drainage catheter tip, free air in the abdomen under the right diaphragm, right pleural effusion with consolidation, trace left pleural effusion, large amount of stool. Maintained on Daptomycin 500 mg IV QD and Zosyn 3.375g IV TID. CBC WBC 12.8, RBC 3.13, Hg 8.8, Hct 27.9. CMP Cl 113, bicarb 21, glu 131, Ca 7.6, T. Bili 1.5, alb 2.3. Tmax 100.7F over the past 24H. 03/03 Patient was seen and examined. NG tube pulled out again, surgery to evaluate replacement. LR switched to D5 NS to prevent hypoglycemia. Maintained on Daptomycin 500 mg IV QD and Zosyn 3.375g IV TID. CBC WBC 12.6, RBC 2.93, Hg 8.3, Hct 26.3. CMP Cl 114, Ca 7.6. Tmax 100.6F over the past 24H. 03/04 Patient was seen and examined. More alert today. On NDD1 diet with 1:1 supervision. Maintained on Daptomycin 500 mg IV QD and Zosyn 3.375g IV TID. Afebrile over the past 24H. CBC WBC 11.3, RBC 3.22, Hg 9.2, Hct 28.9. CMP Cl 112, glu 117, Ca 7.8. Discussed with case management. Initially family decided on SNF however there is a long wait for bed placement. Family then OK with going back to [facility]. Discussed with Dr. Edgar, continue Daptomycin and Zosyn for 7 days. Order for PICC line placed. 03/05 Patient was seen and examined. Unable to set up IV antibiotics yesterday which will be delayed until Thursday. Maintained on Daptomycin 500 mg IV QD and Zosyn 3.375g IV TID. CBC RBC 2.87, Hg 8.2, Hct 25.4, Plt 555. BMP K 3.4, Cl 109, glu 130, Ca 7.5. Tmax 100.2F over the past 24H. General: Not in acute distress Derm: Warm, dry Head: Atraumatic, normocephalic, symmetric Eyes: EOMI, pupils equal and reactive, anicteric sclera Mouth: No lip lesion, mucus membranes moist Cardiovascular: S1S2 reg, no murmur Lungs: CTA bilateral, no rhonchi, no rales, no accessory muscle use, supp lemental oxygen Abdominal: Soft, nontender to palpation, abdominal binder in place, BRADLEY drain in place Ext: No gross muscle atrophy, no edema, no contractures Psych: Drowsy, cooperative, oriented x 1 Acute cholecystitis status postcholecystectomy managed by surgery VRE bacteremia due to above: Patient currently on IV daptomycin 500 mg every 24 hours (D10), IV Zosyn 3.375 g every 8 hours (D10). Repeat BCx negative so far. Discussed with Dr. Edgar, no new findings on CT, continue current antibiotic regimen. Plans for 7 days of Daptomycin and Zosyn on discharge. PICC line order placed. Hypokalemia: KCl 20 meq IV x 1 today. Acute encephalopathy: Likely metabolic versus septic. Improving. Fall pr ecautions. Acute blood loss anemia: Intraoperatively. Status post 4 units of PRBCs, and 1 unit of platelets. Monitor CBC. Transfuse if Hg < 7. Acute hypoxic respiratory failure due to right pleural effusion: Pulmonary on board. No plans for thoracentesis. Currently on 2L NC. Insulin-dependent diabetes: Sliding scale insulin, every 6 hours, monitor for hypoglycemia. Resolved: Hemorrhagic shock, Ventilator dependent respiratory failure Chronic: Lewy body dementia, Parkinson's disease Depression History of CVA History of hypertension Dyslipidemia RONNELL Objective - Vital Signs Vital signs: Vital Signs Temp 98.7 F 03/05/24 07:05 Pulse 74 03/05/24 07:05 Resp 17 03/05/24 07:05 BP 128/76 03/05/24 07:05 Pulse Ox 92 L 03/05/24 07:05 FiO2 30 02/26/24 15:10 Intake & Output 03/04/24 03/05/24 03/05/24 18:59 06:59 18:59 Intake Total 360 Output Total 1053 400 Balance -693 -400 Weight 96.5 kg 96 kg Intake: Oral 360 Output: Drainage 3 Right Abdomen 3 Urine 1050 400 Uretheral ([place]and[place]) 150 Other: Voiding Method Indwelling Catheter Indwelling Catheter Indwelling Catheter # Bowel Movements 1 2 ABP, PAP, CO, CI - Last Documented Arterial Blood Pressure 117/42 - Labs CBC & Chem 7: 03/05/24 05:20 03/05/24 05:12 Labs: Abnormal Lab Results - Last 24 Hours (Table) 03/04/24 03/04/24 03/05/24 Range/Units 11:47 18:08 00:13 RBC (4.30-5.90) m/uL Hgb (13.0-17.5) gm/dL Hct (39.0-53.0) % Plt Count (150-450) k/uL Potassium (3.5-5.1) mmol/L Chloride (98-107) mmol/L Glucose (74-99) mg/dL POC Glucose (mg/dL) 125 H 142 H 160 H (70-110) mg/dL Calcium (8.4-10.2) mg/dL 03/05/24 03/05/24 03/05/24 Range/Units 05:12 05:20 06:05 RBC 2.87 L (4.30-5.90) m/uL Hgb 8.2 L (13.0-17.5) gm/dL Hct 25.4 L (39.0-53.0) % Plt Count 555 H (150-450) k/uL Potassium 3.4 L (3.5-5.1) mmol/L Chloride 109 H (98-107) mmol/L Glucose 130 H (74-99) mg/dL POC Glucose (mg/dL) 153 H (70-110) mg/dL Calcium 7.5 L (8.4-10.2) mg/dL Microbiology - Last 24 Hours (Table) 03/01/24 13:12 Blood Culture - Preliminary Blood
--- NOTE | 2024-03-05 10:53 | P.PN ---
Subjective Progress Note Date: 03/05/24 This is a 68-year-old male patient who is currently intubated on mechanical ventilator. The patient was taken to the operating room for acute cholecystitis and bacteremia. The patient was found to have severe acute cholecystitis and the patient was initially supposed to have a laparoscopic cholecystectomy and this was converted to an open procedure. The patient was found to have significant adhesions. The gallbladder was taken out. The patient encountered bleeding and estimated blood loss was in the order of 1000 cc. The patient accordingly was given a total of 1.5 L of crystalloid in the operating room, 1 unit of packed RBC, a total of 1000 cc of albumin. Output from the BRADLEY drain is minimal at this point in time. The patient is currently on propofol running at 15 mcg/kg/min. He is on assist-control mode of mechanical ventilation at a rate of 16, tidal volume of 400, FiO2 40% with a PEEP of 5. The blood pressure was soft in the ICU and the patient was given additional liter of lactated Ringer. Blood gas showed a pH of 7.38 with a pCO2 of 40 and pO2 of more than 420. FiO2 was dropped accordingly. Chest x-ray shows borderline heart size and some atelectatic change in the left midlung. The patient's blood culture showing Enterococcus faecium and based on that the patient was kept on a combination of Zosyn and daptomycin. No pressors for now. Note that the patient is known to have previous history of CVA. He has insulin-dependent diabetes mellitus and hypertension hyperlipidemia and Lewy body dementia and Parkinson's disease. He has also history of obstructive sleep apnea. His gallbladder ultrasound that was done at the time of admission showed acute cholecystitis with distended gallbladder wall thickening and the CT of the chest that was done on 02/23/2024 showed no evidence of any pulmonary embolism. The lungs were essentially clear from any acute pulmonary filtration. On 02/25/2024, the patient remains intubated on the mechanical ventilator. No significant events overnight. The patient is postop day #1 following an open cholecystectomy. Output from the BRADLEY drain is minimal at this point in time. The patient is currently on propofol which is running at 20 mcg/kg/min. He remains on assist-control mode of mechanical ventilation at rate of 60, tidal volume of 450, FiO2 of 30% with a PEEP of 5. Blood gas showed a pH of 7.41 with a pCO2 of 42 and pO2 of 155. The patient was given a total of 2 units of packed RBC postop. He was also given a unit of platelets. No active bleeding. Remains on lactated Ringer at rate of 125 cc an hour. Remains NPO. No pressors for now and the norepinephrine has been discontinued. The white cell count of 12.2 with a hemoglobin 9.8 and a platelet count of 201. BUN is 22 with a creatinine 0.9 and his sodium level is 136. AST is 196, ALT is 139 with an alkaline phosphatase of 115. Cultures positive for Enterococcus faecium and the patient remains on a combination of Zosyn and daptomycin. Afebrile. He modynamically stable at this point in time. 02/26/2024, the patient is quite lethargic, sleepy, rigid, slightly responsive to verbal stimulation. He grimaces to painful stimulation. To my understanding, the patient has significant Lewy body dementia with chronic rigidity and cognitive impairment. The patient remains on the mechanical ventilator. Off sedation. Currently on assist-control mode with rate of 16, tidal volume of 400 and FiO2 of 30% with a PEEP of 5. The blood gas from today shows a pH of 7.48 with a pCO2 of 38 and pO2 of 87. Chest x-ray from today shows patchy opacity in the right lung base/atelectasis. Orogastric and orotracheal tube are both in place. The patient is hemodynamically stable. The patient is afebrile. The patient on lactated Ringer at rate of 125 cc an hour. BRADLEY drain output is serous. The LFTs are essentially within normal limits. Sodium is at 136, BUN is 20 with a creatinine of 0.8 and a potassium levels of 3.8. The white cell count 11.2 with a hemoglobin 8.4 and a platelet count of 146. Remains on Zosyn and daptomycin. No other significant events overnight. 02/27/2024, the patient is extubated and the patient is currently on 2 L of oxygen by nasal cannula. Significant neurologic impairment and cognitive impairment and rigidity. Does not communicate. Does not follow any simple commands. Unable to swallow. Respiratory status is stable. Hemodynamically stable. Repeat chest x-ray was done today and the patient was found to have some right- sided atelectasis and small right-sided pleural effusion. Abdomen is nondistended. Surgical wound site is dry clean and intact. BRADLEY drain is in place. Output overnight was elevated and the patient produced approximately 490 cc over the past 8 hours and currently the output is down to 5 to 10 cc an hour. Output is somewhat bloody/serosanguineous. Remains on lactated Ringer at 125 cc an hour. No pressors. Remains on Zosyn and vancomycin. Hemoglobin is down to 7.3 with a white cell count of 13.2. Electrolytes are all within normal limits. Afebrile. 02/28/2024, the patient is being seen for a follow-up. The patient got transferred out of the intensive care unit yesterday after being extubated. For now, the patient has an NG tube placed and the patient is sleeping Glucerna for enteral feeding and nutritional support. The abdominal scar is dry clean and intact. BRADLEY drain is in place and the output is in the order of 10 cc an hour. Hemoglobin has dropped down to 6.3 and the patient will receive another unit of packed RBC. No evidence of any GI bleeding at this point in time. No coffee- ground emesis. Hemodynamically stable. Neurologic status is unchanged and the patient has significant neurologic impairment due to his Lewy body dementia. The white cell count 11, hemoglobin is 6.3 and a platelet count of 195, BUN is 21 with a creatinine of 0.7. Stable 2 L of oxygen by nasal cannula with a pulse ox of 98%. The patient is postop day #4 following an open cholecystectomy. The patient is seen today February 29, 2024 in follow-up on the regular medical floor. He is currently sitting up in bed. Awake and alert in no acute distress. Maintaining O2 saturation in the 90s on 2 L/min per nasal cannula. Nasogastric tube remains in place. He is being nourished with Glucerna at 60 MLS per hour. He has lactated Ringer's at 75 MLS per hour. BRADLEY drain remains in place. Abdominal dressing is dry and intact. Blood cultures were positive for Enterococcus faecium VRE. Follow-up blood cultures revealing no growth. White count 11.3. Hemoglobin 7.1. Platelets 240. Sodium 138. Potassium 3.6. Bicarb 24. BUN 20. Creatinine 0.79. Glucose 140. He remains on daptomycin and Zosyn. Chest x-ray reveals evidence of a right pleural effusion. Ultrasound today reveals only a 3.6 cm pocket. He is status post 3 units of packed red blood cells and 1 unit of platelets this admission. The patient is seen today March 01, 2024 in follow-up on the regular medical floor. He is currently resting in bed. He is maintaining O2 saturations in the 90s on 2 L/min per nasal cannula. His nasogastric tube had to be replaced as the patient had pulled it out earlier. Follow-up chest x-ray shows the nasogastric tube in place with needing advancement of 10 cm. There is a continued moderate right size pleural effusion with associated consolidation/atelectasis. Improved aeration of the right upper lung. Initial blood cultures were positive for Enterococcus faecium VRE. Follow-up blood cultures revealed no growth. He remains on antibiotics in the form of Zosyn and daptomycin. He is being nourished with Glucerna at 60 MLS per hour. White count 12.1. Hemoglobin 6.7. Platelets 258. Sodium 143. Potassium 3.9. Bicarb 24. BUN 19. Creatinine 0.9. Glucose 121. He is receiving a fourth unit of packed red blood cells this admission. The patient is seen today March 02, 2024 in follow-up on the regular medical floor. He is currently resting in bed. Arousable, weak. Maintaining good O2 saturations in the mid 90s on 2 L/min per nasal cannula. Remains slightly afebrile. Hemodynamically stable. He has pulled out another nasogastric tube. He is currently on daptomycin and Zosyn. Blood cultures were initially positive for Enterococcus faecium VRE. Follow-up blood cultures are revealing no growth. White count 12.8. Hemoglobin 8.8. Platelets 419. Sodium 138. Potassium 4.0. Bicarb 21. BUN 20. Creatinine 0.70. Glucose 131. The patient is seen today March 03, 2024 in follow-up on the regular medical floor. He is a bit more awake today. Answering some simple questions. He is maintaining good O2 saturations in the 90s on 2 L/min per nasal cannula. He has pulled out his nasogastric tubes on multiple occasions. He is currently out again. Remains on antibiotics in the form of daptomycin and Zosyn. Recent chest x-ray continues to show some right-sided pleural effusion. Ultrasound of the chest did not reveal any significant fluid. No plans for thoracentesis at this time. Follow-up blood cultures revealed no growth. Urine culture revealed no growth. White count 12.6. Hemoglobin 8.3. Platelets 421. Sodium 140. Potassium 3.9. Bicarb 22. BUN 19. Creatinine 0.72. The patient is seen today March 04, 2024 in follow-up on the regular medical floor. Postoperative day #9. He is currently resting comfortably in bed. Awake and alert in no acute distress. He is more vocal today compared to yesterday. He is maintaining good O2 saturations in the 90s on 2-1/2 L/min per nasal cannula. He was eating and drinking well at breakfast. He remains on D5W and half-normal saline at 50 MLS per hour. Antibiotics in the form of Zosyn and daptomycin. Heparin for DVT prophylaxis. Plavix remains on hold white count 11.3. Hemoglobin 9.2. Platelets 511. Sodium 139. Potassium 3.8. Bicarb 25. BUN 16. Creatinine 0.68. Glucose 117. The patient is seen today March 05 2024 in follow-up on the regular medical floor. Postoperative day #10. He is currently awake and alert in no acute distress. He is complaining of some surgical site pain. He denies any shortness of breath. He is more interactive again today. Follow-up blood cultures revealed no growth. Urine culture revealed no growth. White count 10.0. Hemoglobin 8.2. Platelets 555. Sodium 137. Potassium 3.4. Bicarb 25. BUN 13. Creatinine 0.67. Glucose 130. He remains on heparin for DVT prophylaxis. Antibiotics in the form of Zosyn and daptomycin. Dilaudid for pain control. Objective - Vital Signs Vital signs: Vital Signs Temp 98.7 F 03/05/24 07:05 Pulse 74 03/05/24 07:05 Resp 17 03/05/24 07:05 BP 128/76 03/05/24 07:05 Pulse Ox 92 L 03/05/24 07:05 FiO2 30 02/26/24 15:10 Intake & Output 03/04/24 03/05/24 03/05/24 18:59 06:59 18:59 Intake Total 360 Output Total 1053 400 Balance -693 -400 Weight 96.5 kg 96 kg Intake: Oral 360 Output: Drainage 3 Right Abdomen 3 Urine 1050 400 Uretheral (Fernandes) 150 Other: Voiding Method Indwelling Catheter Indwelling Catheter Indwelling Catheter # Bowel Movements 1 2 ABP, PAP, CO, CI - Last Documented Arterial Blood Pressure 117/42 - Exam GENERAL EXAM: Alert, cognitively impaired, more verbal today, 68-year-old male, on 2 L nasal cannula, in no apparent distress. HEAD: Normocephalic. EYES: Normal reaction of pupils, equal size. NOSE: Place. Clear with pink turbinates. Nasogastric tube secured in place. THROAT: No erythema or exudates. NECK: No masses, no JVD. CHEST: No chest wall deformity. LUNGS: Equal air entry with no crackles, wheeze, rhonchi or dullness. CVS: S1 and S2 normal with no audible murmur, regular rhythm. ABDOMEN: Surgical incision clean dry and well-approximated. BRADLEY drain remains in place. SPINE: No scoliosis or deformity SKIN: No rashes CENTRAL NERVOUS SYSTEM: Cognitively impaired, tone is normal in all 4 extremities. EXTREMITIES: There is no peripheral edema. No clubbing, no cyanosis. Peripheral pulses are intact. - Labs CBC & Chem 7: 03/05/24 05:20 03/05/24 05:12 Labs: Abnormal Lab Results - Last 24 Hours (Table) 03/04/24 03/04/24 03/05/24 Range/Units 11:47 18:08 00:13 RBC (4.30-5.90) m/uL Hgb (13.0-17.5) gm/dL Hct (39.0-53.0) % Plt Count (150-450) k/uL Potassium (3.5-5.1) mmol/L Chloride (98-107) mmol/L Glucose (74-99) mg/dL POC Glucose (mg/dL) 125 H 142 H 160 H (70-110) mg/dL Calcium (8.4-10.2) mg/dL 03/05/24 03/05/24 03/05/24 Range/Units 05:12 05:20 06:05 RBC 2.87 L (4.30-5.90) m/uL Hgb 8.2 L (13.0-17.5) gm/dL Hct 25.4 L (39.0-53.0) % Plt Count 555 H (150-450) k/uL Potassium 3.4 L (3.5-5.1) mmol/L Chloride 109 H (98-107) mmol/L Glucose 130 H (74-99) mg/dL POC Glucose (mg/dL) 153 H (70-110) mg/dL Calcium 7.5 L (8.4-10.2) mg/dL Microbiology - Last 24 Hours (Table) 03/01/24 13:12 Blood Culture - Preliminary Blood Assessment and Plan Assessment: Acute cholecystitis and the patient underwent an open cholecystectomy. The patient is currently postop day #10. Significant blood loss intraoperatively and the patient was resuscitated with fluids, colloids/albumin and received 3 units of packed RBC and one platelets. Current hemoglobin 8.8. Received a total of 4 units of packed red blood cells. No evidence of any acute bleeding and the output from the BRADLEY drain is minimal at this point in time. Acute enterococcal septicemia secondary to cholecystitis and the patient is currently on a combination of daptomycin and Zosyn. The patient has Enterococcus faecium VRE in the blood cultures Acute hypoxemic respiratory failure post gallbladder surgery. Patient was extubated to nasal cannula on 02/26/2024, currently on 2 L of oxygen by nasal cannula. Chest x-ray continues to show right-sided pleural effusion Previous history of CVA History of hypertension Hyperlipidemia Lewy body dementia with Parkinson disease at baseline with significant motor rigidity and cognitive impairment More awake and alert today. Tolerating a dysphagia 1 pured diet with one-to-one supervision Plan: The patient was seen and evaluated Labs and medications reviewed Patient is more interactive today Tolerating a dysphagia level 1 pured diet Currently on Zosyn and daptomycin Plan is for subacute rehab at discharge I have personally seen and examined the patient, performed the documentation and the assessment and plan as written. Number of minutes spent on the visit: 10.
[2024-03-05] MEDS ORDERED: HYDROmorphone 1 MG/ML 1 ML SYRINGE IVP PRN (11:19)
[2024-03-05 11:56] LABS: Glucose,Whole Blood 136 mg/dL (70-110)
--- NOTE | 2024-03-05 13:53 | P.PN ---
Progress Note - Text Progress Note Date: 03/05/24 CHIEF COMPLAINT: Acute cholecystitis HISTORY OF PRESENT ILLNESS: Patient is postop day #10 status post open cholecystectomy. NAEO PHYSICAL EXAM: VITAL SIGNS: Reviewed. GENERAL: no acute distress. ABDOMEN: Soft. Nondistended. Medial aspect of incision with small amount of serosanguineous drainage, BRADLEY drain minimal sanguinous output NEUROLOGIC: More awake and alert ASSESSMENT: 1. Acute on chronic cholecystitis 2. VRE bacteremia 3. Coagulopathy PLAN: -Continue pured diet -Continue antibiotics per ID service -Continue to increase activity level
--- NOTE | 2024-03-05 15:22 | P.PN ---
Subjective Progress Note Date: 03/05/24 Principal diagnosis: Reason for follow-up is acute cholecystitis and bacteremia Patient is a 68-year-old male with a past medical history significant for diabetes mellitus hypertension sleep apnea CVA TIA Parkinson disease patient was brought into the hospital initially for chest pain has been diagnosed with acute cholecystitis and also have VRE bacteremia. Patient is status post laparoscopic cholecystectomy on 02/24/2024 subsequent requiring admission to the ICU on the ventilator. On today's evaluation that is 03/05/2024, patient did have a low-grade fever 100.2 last evening however the patient has been afebrile this morning, patient is breathing comfortably and is currently on 2 L cannula oxygen, patient denies having any significant cough no chest pain shortness of breath, patient did have some nausea no recent complaints of abdominal distention and discomfort. Patient white normal at 10.0, creatinine 0.67 blood culture repeat has been negative Objective - Vital Signs Vital signs: Vital Signs Temp 98.7 F 03/05/24 07:05 Pulse 74 03/05/24 07:05 Resp 17 03/05/24 07:05 BP 128/76 03/05/24 07:05 Pulse Ox 92 L 03/05/24 07:05 FiO2 30 02/26/24 15:10 Intake & Output 03/04/24 03/05/24 03/05/24 18:59 06:59 18:59 Intake Total 360 Output Total 1053 400 Balance -693 -400 Weight 96.5 kg 96 kg Intake: Oral 360 Output: Drainage 3 Right Abdomen 3 Urine 1050 400 Uretheral (Fernandes) 150 Other: Voiding Method Indwelling Catheter Indwelling Catheter Indwelling Catheter # Bowel Movements 1 2 1 ABP, PAP, CO, CI - Last Documented Arterial Blood Pressure 117/42 - Exam GENERAL DESCRIPTION: An elderly male lying in bed in no distress RESPIRATORY SYSTEM: Unlabored breathing , decreased breath sounds at bases HEART: S1 S2 regular rate and rhythm , ABDOMEN: Soft , no tenderness EXTREMITIES: No edema feet - Labs CBC & Chem 7: 03/05/24 05:20 03/05/24 05:12 Labs: Abnormal Lab Results - Last 24 Hours (Table) 03/04/24 03/05/24 03/05/24 Range/Units 18:08 00:13 05:12 RBC (4.30-5.90) m/uL Hgb (13.0-17.5) gm/dL Hct (39.0-53.0) % Plt Count (150-450) k/uL Potassium 3.4 L (3.5-5.1) mmol/L Chloride 109 H (98-107) mmol/L Glucose 130 H (74-99) mg/dL POC Glucose (mg/dL) 142 H 160 H (70-110) mg/dL Calcium 7.5 L (8.4-10.2) mg/dL 03/05/24 03/05/24 03/05/24 Range/Units 05:20 06:05 11:55 RBC 2.87 L (4.30-5.90) m/uL Hgb 8.2 L (13.0-17.5) gm/dL Hct 25.4 L (39.0-53.0) % Plt Count 555 H (150-450) k/uL Potassium (3.5-5.1) mmol/L Chloride (98-107) mmol/L Glucose (74-99) mg/dL POC Glucose (mg/dL) 153 H 136 H (70-110) mg/dL Calcium (8.4-10.2) mg/dL Microbiology - Last 24 Hours (Table) 03/01/24 13:12 Blood Culture - Preliminary Blood Assessment and Plan (1) Sepsis Current Visit: Yes Status: Acute Code(s): A41.9 - SEPSIS, UNSPECIFIED ORGANISM SNOMED Code(s): 61500706 (2) Cholecystitis Current Visit: Yes Status: Acute Code(s): K81.9 - CHOLECYSTITIS, UNSPECIFIED SNOMED Code(s): 31497448 (3) VRE bacteremia Current Visit: Yes Status: Acute Code(s): R78.81 - BACTEREMIA; B95.2 - E NTEROCOCCUS THE CAUSE OF DISEASES CLASSIFIED ELSEWHERE; Z16.21 - RESISTANCE TO VANCOMYCIN SNOMED Code(s): 5288884885 (4) Allergy to cephalosporin Current Visit: Yes Status: Acute Code(s): Z88.1 - ALLERGY STATUS TO OTHER ANTIBIOTIC AGENTS SNOMED Code(s): 640810352 Plan: 1patient presented hospital with sepsis in this patient who did have fever elevated white count source is acute cholecystitis usually associated with a gram-negative bacteria and also secondary to Enterococcus 2-VRE bacteremia source could be acute gastritis 3-blood culture has been repeated and so far negative 4-patient did have CT abdominal pelvis which mention fluid collection questionably postop versus hematoma and may have responsible for his fever repeat cultures so far negative 5-patient seem to have shown clinical improvement afebrile white count has normalized 6- we will continue the patient with the Zosyn and daptomycin currently waiting for placement Dictation was produced using [employer] dictation software. please excuse any grammatical, word or spelling errors. Time with Patient: Less than 30
[2024-03-05 18:30] LABS: Glucose,Whole Blood 135 mg/dL (70-110)
[2024-03-06 00:33] LABS: Glucose,Whole Blood 141 mg/dL (70-110)
[2024-03-06 06:11] LABS: Glucose,Whole Blood 138 mg/dL (70-110)
[2024-03-06 11:11] LABS: HCT 26.3 % (39.0-53.0); HGB 8.2 gm/dL (13.0-17.5); Hypochromasia Slight; MCH 27.5 pg (25.0-35.0); MCHC 31.1 g/dL (31.0-37.0); MCV 88.5 fL (80.0-100.0); Mean Platelet Volume 7.5; Platelet Count 658 k/uL (150-450); Poikilocytosis Slight; RBC 2.97 m/uL (4.30-5.90); WBC 10.5 k/uL (3.8-10.6)
[2024-03-06 11:12] LABS: African American GFR (CKD) >90 (>60 ml/min/1.73 sqM); Anion Gap 2 mmol/L; Blood Urea Nitrogen 13 mg/dL (9-20); Calcium 7.3 mg/dL (8.4-10.2); Carbon Dioxide 24 mmol/L (22-30); Chloride 110 mmol/L (98-107); Glucose 110 mg/dL (74-99); Non-African American GFR(CKD) >90 (>60 ml/min/1.73 sqM); Potassium 3.7 mmol/L (3.5-5.1); Sodium 136 mmol/L (137-145)
--- NOTE | 2024-03-06 12:14 | P.PN ---
Subjective Progress Note Date: 03/06/24 This is a 68-year-old male patient who is currently intubated on mechanical ventilator. The patient was taken to the operating room for acute cholecystitis and bacteremia. The patient was found to have severe acute cholecystitis and the patient was initially supposed to have a laparoscopic cholecystectomy and this was converted to an open procedure. The patient was found to have significant adhesions. The gallbladder was taken out. The patient encountered bleeding and estimated blood loss was in the order of 1000 cc. The patient accordingly was given a total of 1.5 L of crystalloid in the operating room, 1 unit of packed RBC, a total of 1000 cc of albumin. Output from the BRADLEY drain is minimal at this point in time. The patient is currently on propofol running at 15 mcg/kg/min. He is on assist-control mode of mechanical ventilation at a rate of 16, tidal volume of 400, FiO2 40% with a PEEP of 5. The blood pressure was soft in the ICU and the patient was given additional liter of lactated Ringer. Blood gas showed a pH of 7.38 with a pCO2 of 40 and pO2 of more than 420. FiO2 was dropped accordingly. Chest x-ray shows borderline heart size and some atelectatic change in the left midlung. The patient's blood culture showing Enterococcus faecium and based on that the patient was kept on a combination of Zosyn and daptomycin. No pressors for now. Note that the patient is known to have previous history of CVA. He has insulin-dependent diabetes mellitus and hypertension hyperlipidemia and Lewy body dementia and Parkinson's disease. He has also history of obstructive sleep apnea. His gallbladder ultrasound that was done at the time of admission showed acute cholecystitis with distended gallbladder wall thickening and the CT of the chest that was done on 02/23/2024 showed no evidence of any pulmonary embolism. The lungs were essentially clear from any acute pulmonary filtration. On 02/25/2024, the patient remains intubated on the mechanical ventilator. No significant events overnight. The patient is postop day #1 following an open cholecystectomy. Output from the BRADLEY drain is minimal at this point in time. The patient is currently on propofol which is running at 20 mcg/kg/min. He remains on assist-control mode of mechanical ventilation at rate of 60, tidal volume of 450, FiO2 of 30% with a PEEP of 5. Blood gas showed a pH of 7.41 with a pCO2 of 42 and pO2 of 155. The patient was given a total of 2 units of packed RBC postop. He was also given a unit of platelets. No active bleeding. Remains on lactated Ringer at rate of 125 cc an hour. Remains NPO. No pressors for now and the norepinephrine has been discontinued. The white cell count of 12.2 with a hemoglobin 9.8 and a platelet count of 201. BUN is 22 with a creatinine 0.9 and his sodium level is 136. AST is 196, ALT is 139 with an alkaline phosphatase of 115. Cultures positive for Enterococcus faecium and the patient remains on a combination of Zosyn and daptomycin. Afebrile. He modynamically stable at this point in time. 02/26/2024, the patient is quite lethargic, sleepy, rigid, slightly responsive to verbal stimulation. He grimaces to painful stimulation. To my understanding, the patient has significant Lewy body dementia with chronic rigidity and cognitive impairment. The patient remains on the mechanical ventilator. Off sedation. Currently on assist-control mode with rate of 16, tidal volume of 400 and FiO2 of 30% with a PEEP of 5. The blood gas from today shows a pH of 7.48 with a pCO2 of 38 and pO2 of 87. Chest x-ray from today shows patchy opacity in the right lung base/atelectasis. Orogastric and orotracheal tube are both in place. The patient is hemodynamically stable. The patient is afebrile. The patient on lactated Ringer at rate of 125 cc an hour. BRADLEY drain output is serous. The LFTs are essentially within normal limits. Sodium is at 136, BUN is 20 with a creatinine of 0.8 and a potassium levels of 3.8. The white cell count 11.2 with a hemoglobin 8.4 and a platelet count of 146. Remains on Zosyn and daptomycin. No other significant events overnight. 02/27/2024, the patient is extubated and the patient is currently on 2 L of oxygen by nasal cannula. Significant neurologic impairment and cognitive impairment and rigidity. Does not communicate. Does not follow any simple commands. Unable to swallow. Respiratory status is stable. Hemodynamically stable. Repeat chest x-ray was done today and the patient was found to have some right- sided atelectasis and small right-sided pleural effusion. Abdomen is nondistended. Surgical wound site is dry clean and intact. BRADLEY drain is in place. Output overnight was elevated and the patient produced approximately 490 cc over the past 8 hours and currently the output is down to 5 to 10 cc an hour. Output is somewhat bloody/serosanguineous. Remains on lactated Ringer at 125 cc an hour. No pressors. Remains on Zosyn and vancomycin. Hemoglobin is down to 7.3 with a white cell count of 13.2. Electrolytes are all within normal limits. Afebrile. 02/28/2024, the patient is being seen for a follow-up. The patient got transferred out of the intensive care unit yesterday after being extubated. For now, the patient has an NG tube placed and the patient is sleeping Glucerna for enteral feeding and nutritional support. The abdominal scar is dry clean and intact. BRADLEY drain is in place and the output is in the order of 10 cc an hour. Hemoglobin has dropped down to 6.3 and the patient will receive another unit of packed RBC. No evidence of any GI bleeding at this point in time. No coffee- ground emesis. Hemodynamically stable. Neurologic status is unchanged and the patient has significant neurologic impairment due to his Lewy body dementia. The white cell count 11, hemoglobin is 6.3 and a platelet count of 195, BUN is 21 with a creatinine of 0.7. Stable 2 L of oxygen by nasal cannula with a pulse ox of 98%. The patient is postop day #4 following an open cholecystectomy. The patient is seen today February 29, 2024 in follow-up on the regular medical floor. He is currently sitting up in bed. Awake and alert in no acute distress. Maintaining O2 saturation in the 90s on 2 L/min per nasal cannula. Nasogastric tube remains in place. He is being nourished with Glucerna at 60 MLS per hour. He has lactated Ringer's at 75 MLS per hour. BRADLEY drain remains in place. Abdominal dressing is dry and intact. Blood cultures were positive for Enterococcus faecium VRE. Follow-up blood cultures revealing no growth. White count 11.3. Hemoglobin 7.1. Platelets 240. Sodium 138. Potassium 3.6. Bicarb 24. BUN 20. Creatinine 0.79. Glucose 140. He remains on daptomycin and Zosyn. Chest x-ray reveals evidence of a right pleural effusion. Ultrasound today reveals only a 3.6 cm pocket. He is status post 3 units of packed red blood cells and 1 unit of platelets this admission. The patient is seen today March 01, 2024 in follow-up on the regular medical floor. He is currently resting in bed. He is maintaining O2 saturations in the 90s on 2 L/min per nasal cannula. His nasogastric tube had to be replaced as the patient had pulled it out earlier. Follow-up chest x-ray shows the nasogastric tube in place with needing advancement of 10 cm. There is a continued moderate right size pleural effusion with associated consolidation/atelectasis. Improved aeration of the right upper lung. Initial blood cultures were positive for Enterococcus faecium VRE. Follow-up blood cultures revealed no growth. He remains on antibiotics in the form of Zosyn and daptomycin. He is being nourished with Glucerna at 60 MLS per hour. White count 12.1. Hemoglobin 6.7. Platelets 258. Sodium 143. Potassium 3.9. Bicarb 24. BUN 19. Creatinine 0.9. Glucose 121. He is receiving a fourth unit of packed red blood cells this admission. The patient is seen today March 02, 2024 in follow-up on the regular medical floor. He is currently resting in bed. Arousable, weak. Maintaining good O2 saturations in the mid 90s on 2 L/min per nasal cannula. Remains slightly afebrile. Hemodynamically stable. He has pulled out another nasogastric tube. He is currently on daptomycin and Zosyn. Blood cultures were initially positive for Enterococcus faecium VRE. Follow-up blood cultures are revealing no growth. White count 12.8. Hemoglobin 8.8. Platelets 419. Sodium 138. Potassium 4.0. Bicarb 21. BUN 20. Creatinine 0.70. Glucose 131. The patient is seen today March 03, 2024 in follow-up on the regular medical floor. He is a bit more awake today. Answering some simple questions. He is maintaining good O2 saturations in the 90s on 2 L/min per nasal cannula. He has pulled out his nasogastric tubes on multiple occasions. He is currently out again. Remains on antibiotics in the form of daptomycin and Zosyn. Recent chest x-ray continues to show some right-sided pleural effusion. Ultrasound of the chest did not reveal any significant fluid. No plans for thoracentesis at this time. Follow-up blood cultures revealed no growth. Urine culture revealed no growth. White count 12.6. Hemoglobin 8.3. Platelets 421. Sodium 140. Potassium 3.9. Bicarb 22. BUN 19. Creatinine 0.72. The patient is seen today March 04, 2024 in follow-up on the regular medical floor. Postoperative day #9. He is currently resting comfortably in bed. Awake and alert in no acute distress. He is more vocal today compared to yesterday. He is maintaining good O2 saturations in the 90s on 2-1/2 L/min per nasal cannula. He was eating and drinking well at breakfast. He remains on D5W and half-normal saline at 50 MLS per hour. Antibiotics in the form of Zosyn and daptomycin. Heparin for DVT prophylaxis. Plavix remains on hold white count 11.3. Hemoglobin 9.2. Platelets 511. Sodium 139. Potassium 3.8. Bicarb 25. BUN 16. Creatinine 0.68. Glucose 117. The patient is seen today March 05 2024 in follow-up on the regular medical floor. Postoperative day #10. He is currently awake and alert in no acute distress. He is complaining of some surgical site pain. He denies any shortness of breath. He is more interactive again today. Follow-up blood cultures revealed no growth. Urine culture revealed no growth. White count 10.0. Hemoglobin 8.2. Platelets 555. Sodium 137. Potassium 3.4. Bicarb 25. BUN 13. Creatinine 0.67. Glucose 130. He remains on heparin for DVT prophylaxis. Antibiotics in the form of Zosyn and daptomycin. Dilaudid for pain control. The patient is seen today March 06, 2024 in follow-up on the regular medical floor. Postoperative day #11. He is resting comfortably in bed. Awake and alert in no acute distress. He is maintaining O2 saturations in the 90s on 3 L/min per nasal cannula. He has been afebrile. Hemodynamically stable. White count 10.5. Hemoglobin 8.2. Sodium 136. Potassium 3.7. Bicarb 24. BUN 13. Creatinine 0.63. He remains on daptomycin and Zosyn. Follow-up blood cultures revealed no growth. Objective - Vital Signs Vital signs: Vital Signs Temp 99.8 F H 03/06/24 07:38 Pulse 73 03/06/24 07:38 Resp 17 03/06/24 07:38 BP 132/61 03/06/24 07:38 Pulse Ox 92 L 03/06/24 08:26 FiO2 30 02/26/24 15:10 Intake & Output 03/05/24 03/06/24 03/06/24 18:59 06:59 18:59 Output Total 500 200 Balance -500 -200 Weight 100 kg Output: Urine 500 200 Other: Voiding Method Indwelling Catheter Indwelling Catheter Indwelling Catheter # Bowel Movements 1 ABP, PAP, CO, CI - Last Documented Arterial Blood Pressure 117/42 - Exam GENERAL EXAM: Alert, cognitively impaired, 68-year-old male, on 3 L nasal cannula, in no apparent distress. HEAD: Normocephalic. EYES: Normal reaction of pupils, equal size. NOSE: Place. Clear with pink turbinates. THROAT: No erythema or exudates. NECK: No masses, no JVD. CHEST: No chest wall deformity. LUNGS: Equal air entry with no crackles, wheeze, rhonchi or dullness. CVS: S1 and S2 normal with no audible murmur, regular rhythm. ABDOMEN: Surgical incision clean dry and well-approximated. BRADLEY drain remains in place. SPINE: No scoliosis or deformity SKIN: No rashes CENTRAL NERVOUS SYSTEM: Cognitively impaired, tone is normal in all 4 extremities. EXTREMITIES: There is no peripheral edema. No clubbing, no cyanosis. Peripheral pulses are intact. - Labs CBC & Chem 7: 03/06/24 10:33 03/06/24 10:33 Labs: Abnormal Lab Results - Last 24 Hours (Table) 03/05/24 03/06/24 03/06/24 Range/Units 18:28 00:21 06:10 RBC (4.30-5.90) m/uL Hgb (13.0-17.5) gm/dL Hct (39.0-53.0) % Plt Count (150-450) k/uL Sodium (137-145) mmol/L Chloride (98-107) mmol/L Creatinine (0.66-1.25) mg/dL Glucose (74-99) mg/dL POC Glucose (mg/dL) 135 H 141 H 138 H (70-110) mg/dL Calcium (8.4-10.2) mg/dL 03/06/24 03/06/24 Range/Units 10:33 10:33 RBC 2.97 L (4.30-5.90) m/uL Hgb 8.2 L (13.0-17.5) gm/dL Hct 26.3 L (39.0-53.0) % Plt Count 658 H (150-450) k/uL Sodium 136 L (137-145) mmol/L Chloride 110 H (98-107) mmol/L Creatinine 0.63 L (0.66-1.25) mg/dL Glucose 110 H (74-99) mg/dL POC Glucose (mg/dL) (70-110) mg/dL Calcium 7.3 L (8.4-10.2) mg/dL Assessment and Plan Assessment: Acute cholecystitis and the patient underwent an open cholecystectomy. The pat ient is currently postop day #11. Significant blood loss intraoperatively and the patient was resuscitated with fluids, colloids/albumin and received 4 units of packed RBC and one platelets. Current hemoglobin 8.2. No evidence of any acute bleeding and the output from the BRADLEY drain is minimal at this point in time. Acute enterococcal septicemia secondary to cholecystitis and the patient is currently on a combination of daptomycin and Zosyn. The patient has Enterococcus faecium VRE in the blood cultures Acute hypoxemic respiratory failure post gallbladder surgery. Patient was extubated to nasal cannula on 02/26/2024, currently on 2 L of oxygen by nasal cannula. Chest x-ray continues to show right-sided pleural effusion Previous history of CVA History of hypertension Hyperlipidemia Lewy body dementia with Parkinson disease at baseline with significant motor rigidity and cognitive impairment More awake and alert today. Tolerating a dysphagia 1 pured diet with one-to-one supervision Plan: The patient was seen and evaluated Labs and medications reviewed Titrate down the FiO2 as tolerated Continue the current treatment plan Plan is for subacute rehab at discharge I have personally seen and examined the patient, performed the documentation and the assessment and plan as written. Number of minutes spent on the visit: 10.
[2024-03-06 12:24] LABS: Glucose,Whole Blood 117 mg/dL (70-110)
--- NOTE | 2024-03-06 12:47 | P.PN ---
Subjective Progress Note Date: 03/06/24 Principal diagnosis: Reason for follow-up is acute cholecystitis and bacteremia Patient is a 68-year-old male with a past medical history significant for diabetes mellitus hypertension sleep apnea CVA TIA Parkinson disease patient was brought into the hospital initially for chest pain has been diagnosed with acute cholecystitis and also have VRE bacteremia. Patient is status post laparoscopic cholecystectomy on 02/24/2024 subsequent requiring admission to the ICU on the ventilator. On today's evaluation that is 03/06/2024, Patient did have a low-grade fever 100.2 F last night and 99.8 F this morning patient is currently breathing comfortably on 3 L nasal cannula oxygen patient is sleepy lethargic and cannot provide any history no vomiting denied any change reported by nursing staff. Patient white count is 10.5, creatinine 0.63 a repeat culture has been negative Objective - Vital Signs Vital signs: Vital Signs Temp 99.8 F H 03/06/24 07:38 Pulse 73 03/06/24 07:38 Resp 17 03/06/24 07:38 BP 132/61 03/06/24 07:38 Pulse Ox 92 L 03/06/24 08:26 FiO2 30 02/26/24 15:10 Intake & Output 03/05/24 03/06/24 03/06/24 18:59 06:59 18:59 Output Total 500 200 Balance -500 -200 Weight 100 kg Output: Urine 500 200 Other: Voiding Method Indwelling Catheter Indwelling Catheter Indwelling Catheter # Bowel Movements 1 ABP, PAP, CO, CI - Last Documented Arterial Blood Pressure 117/42 - Exam GENERAL DESCRIPTION: An elderly male lying in bed in no distress RESPIRATORY SYSTEM: Unlabored breathing , decreased breath sounds at bases HEART: S1 S2 regular rate and rhythm , ABDOMEN: Soft , no tenderness EXTREMITIES: No edema feet - Labs CBC & Chem 7: 03/06/24 10:33 03/06/24 10:33 Labs: Abnormal Lab Results - Last 24 Hours (Table) 03/05/24 03/06/24 03/06/24 Range/Units 18:28 00:21 06:10 RBC (4.30-5.90) m/uL Hgb (13.0-17.5) gm/dL Hct (39.0-53.0) % Plt Count (150-450) k/uL Sodium (137-145) mmol/L Chloride (98-107) mmol/L Creatinine (0.66-1.25) mg/dL Glucose (74-99) mg/dL POC Glucose (mg/dL) 135 H 141 H 138 H (70-110) mg/dL Calcium (8.4-10.2) mg/dL 03/06/24 03/06/24 03/06/24 Range/Units 10:33 10:33 12:23 RBC 2.97 L (4.30-5.90) m/uL Hgb 8.2 L (13.0-17.5) gm/dL Hct 26.3 L (39.0-53.0) % Plt Count 658 H (150-450) k/uL Sodium 136 L (137-145) mmol/L Chloride 110 H (98-107) mmol/L Creatinine 0.63 L (0.66-1.25) mg/dL Glucose 110 H (74-99) mg/dL POC Glucose (mg/dL) 117 H (70-110) mg/dL Calcium 7.3 L (8.4-10.2) mg/dL Assessment and Plan (1) Sepsis Current Visit: Yes Status: Acute Code(s): A41.9 - SEPSIS, UNSPECIFIED ORGANISM SNOMED Code(s): 50972184 (2) Cholecystitis Current Visit: Yes Status: Acute Code(s): K81.9 - CHOLECYSTITIS, UNSPECIFIED SNOMED Code(s): 84247185 (3) VRE bacteremia Current Visit: Yes Status: Acute Code(s): R78.81 - BACTEREMIA; B95.2 - ENTEROCOCCUS THE CAUSE OF DISEASES CLASSIFIED ELSEWHERE; Z16.21 - RESISTANCE TO VANCOMYCIN SNOMED Code(s): 3207907579 (4) Allergy to cephalosporin Current Visit: Yes Status: Acute Code(s): Z88.1 - ALLERGY STATUS TO OTHER ANTIBIOTIC AGENTS SNOMED Code(s): 231345893 Plan: 1patient presented hospital with sepsis in this patient who did have fever elevated white count source is acute cholecystitis usually associated with a gram-negative bacteria and also secondary to Enterococcus 2-VRE bacteremia source could be acute gastritis 3-blood culture has been repeated and so far negative 4-patient did have CT abdominal pelvis which mention fluid collection questionably postop versus hematoma and may have responsible for his low-grade fever as repeat cultures so far negative and the patient white count has normalized 5-patient to continue the patient with the Zosyn and daptomycin to finish his course of therapy Dictation was produced using [employer] dictation software. please excuse any grammatical, word or spelling errors. Time with Patient: Less than 30
--- NOTE | 2024-03-06 12:51 | P.PN ---
Subjective Progress Note Date: 03/06/24 Principal diagnosis: Acute cholecystitis Patient seems more tired today. Tolerating regular diet for breakfast. No nausea or vomiting. Tmax 100.2. BRADLEY drain remains serosanguineous. Objective - Vital Signs Vital signs: Vital Signs Temp 99.8 F H 03/06/24 07:38 Pulse 73 03/06/24 07:38 Resp 17 03/06/24 07:38 BP 132/61 03/06/24 07:38 Pulse Ox 92 L 03/06/24 08:26 FiO2 30 02/26/24 15:10 Intake & Output 03/05/24 03/06/24 03/06/24 18:59 06:59 18:59 Output Total 500 200 Balance -500 -200 Weight 100 kg Output: Urine 500 200 Other: Voiding Method Indwelling Catheter Indwelling Catheter Indwelling Catheter # Bowel Movements 1 ABP, PAP, CO, CI - Last Documented Arterial Blood Pressure 117/42 - Exam Abdomen: Soft, nondistended, dressing clean and dry, mild tenderness, BRADLEY in place - Labs CBC & Chem 7: 03/06/24 10:33 03/06/24 10:33 Labs: Abnormal Lab Results - Last 24 Hours (Table) 03/05/24 03/06/24 03/06/24 Range/Units 18:28 00:21 06:10 RBC (4.30-5.90) m/uL Hgb (13.0-17.5) gm/dL Hct (39.0-53.0) % Plt Count (150-450) k/uL Sodium (137-145) mmol/L Chloride (98-107) mmol/L Creatinine (0.66-1.25) mg/dL Glucose (74-99) mg/dL POC Glucose (mg/dL) 135 H 141 H 138 H (70-110) mg/dL Calcium (8.4-10.2) mg/dL 03/06/24 03/06/24 03/06/24 Range/Units 10:33 10:33 12:23 RBC 2.97 L (4.30-5.90) m/uL Hgb 8.2 L (13.0-17.5) gm/dL Hct 26.3 L (39.0-53.0) % Plt Count 658 H (150-450) k/uL Sodium 136 L (137-145) mmol/L Chloride 110 H (98-107) mmol/L Creatinine 0.63 L (0.66-1.25) mg/dL Glucose 110 H (74-99) mg/dL POC Glucose (mg/dL) 117 H (70-110) mg/dL Calcium 7.3 L (8.4-10.2) mg/dL Assessment and Plan (1) Cholecystitis Narrative/Plan: Patient sleeping more this morning per nursing staff. Denies pain currently. Appetite may be a little bit less today as well. No nausea or vomiting. Low- grade fevers. White blood cell count normal. Continue antibiotics. Monitor BRADLEY drain output. Will follow. Current Visit: Yes Status: Acute Code(s): K81.9 - CHOLECYSTITIS, UNSPECIFIED SNOMED Code(s): 01652701
--- NOTE | 2024-03-06 14:11 | P.PN ---
Subjective Progress Note Date: 03/06/24 68-year-old male with a past medical history of hypertension, hyperlipidemia, CVA, insulin-dependent diabetes mellitus, Lewy body dementia, Parkinson's disease, and obstructive sleep apnea. He presented to the emergency department 02/22/2024 with a chief complaint of chest pain. Patient underwent extensive evaluation in the emergency department. Vital signs upon arrival show blood pressure 138/79, heart rate 90, respiratory rate 19, temperature 98.4 F, and SpO2 98% on room air. EKG showing normal sinus rhythm at 91 bpm with right bundle branch block. Chest x-ray completed negative for acute cardiopulmonary process. Labs completed and reviewed. CBC showing leukocytosis with WBC count of 14.7 otherwise normal findings. Coagulation profile showing elevated PT of 12.9, INR of 1.2, and D-dimer of 1.93. BMP unremarkable with exception of glucose of 179. Liver profile showing hyperbilirubinemia with elevated transaminases with total bili of 2.2, AST of 224, and alkaline phosphatase of 233. Troponin was negative at less than 0.012. CTA chest completed negative for PE. Patient was admitted under our services with consultation to cardiology. Gallbladder ultrasound showed findings concerning for acute cholecystitis with distended gallbladder, wall thickening with pericholecystic fluid and sludge. Consult placed to general surgeon. Patient underwent cholecystectomy. Procedure complicated by significant blood loss. Patient was subsequently moved to medical ICU for further recovery. Blood cultures 1 out of 2 growing Enterococcus, likely VRE, ID consulted. Eventually extubated and downgraded to the medical floor. He has persistent fevers, CT AP ordered showing free fluid and free air with drainage tube in the gallbladder fossa, mottled gas near the drainage catheter tip, free air in the abdomen under the right diaphragm, right pleural effusion with consolidation, trace left pleural effusion, large amount of stool. He is currently maintained on Daptomycin 500 mg IV QD and Zosyn 3.375g IV TID with plans to continue IV antibiotics for 7 days on discharge. 03/01 Patient was seen and examined. NG tube pulled out yesterday, re-inserted today. He is currently on 3L NC. CBC WBC 12.1, Hg 6.7, Hct 20.7. BMP Cl 110, BUN/Cr 21.56, glu 121, Ca 7.2. Antibiotics include Daptomycin 500 mg IV QD and Zosyn 3.375g IV TID. Tmax 101.9F 02/28 and 99.8F on 03/01. ID considering CT AP. Rep eat BCx has been negative so far. 03/02 Patient was seen and examined. Transfused 1 PRBC yesterday. Hg improved from 6.7-8.8. CT AP ordered yesterday showing free fluid and free air with drainage tube in the gallbladder fossa, mottled gas near the drainage catheter tip, free air in the abdomen under the right diaphragm, right pleural effusion with consolidation, trace left pleural effusion, large amount of stool. Maintained on Daptomycin 500 mg IV QD and Zosyn 3.375g IV TID. CBC WBC 12.8, RBC 3.13, Hg 8.8, Hct 27.9. CMP Cl 113, bicarb 21, glu 131, Ca 7.6, T. Bili 1.5, alb 2.3. Tmax 100.7F over the past 24H. 03/03 Patient was seen and examined. NG tube pulled out again, surgery to evaluate replacement. LR switched to D5 NS to prevent hypoglycemia. Maintained on Daptomycin 500 mg IV QD and Zosyn 3.375g IV TID. CBC WBC 12.6, RBC 2.93, Hg 8.3, Hct 26.3. CMP Cl 114, Ca 7.6. Tmax 100.6F over the past 24H. 03/04 Patient was seen and examined. More alert today. On NDD1 diet with 1:1 supervision. Maintained on Daptomycin 500 mg IV QD and Zosyn 3.375g IV TID. Afebrile over the past 24H. CBC WBC 11.3, RBC 3.22, Hg 9.2, Hct 28.9. CMP Cl 112, glu 117, Ca 7.8. Discussed with case management. Initially family decided on SNF however there is a long wait for bed placement. Family then OK with going back to [facility]. Discussed with Dr. Edgar, continue Daptomycin and Zosyn for 7 days. Order for PICC line placed. 03/05 Patient was seen and examined. Unable to set up IV antibiotics yesterday which will be delayed until Thursday. Maintained on Daptomycin 500 mg IV QD and Zosyn 3.375g IV TID. CBC RBC 2.87, Hg 8.2, Hct 25.4, Plt 555. BMP K 3.4, Cl 109, glu 130, Ca 7.5. Tmax 100.2F over the past 24H. 03/06 Patient was seen and examined. Maintained on Daptomycin 500 mg IV QD and Zosyn 3.375g IV TID. Tolerating NDD1 diet. CBC RBC 2.97, Hg 8.2, Hct 26.3, Plt 658. BMP Na 136, Cl 110, Cr 0.63, glu 110, Ca 7.3. Tmax 100.2F over the past 24H. General: Not in acute distress Derm: Warm, dry Head: Atraumatic, normocephalic, symmetric Eyes: EOMI, pupils equal and reactive, anicteric sclera Mouth: No lip lesion, mucus membranes moist Cardiovascular: S1S2 reg, no murmur Lungs: CTA bilateral, no rhonchi, no rales, no accessory muscle use, supplemental oxygen Abdominal: Soft, nontender to palpation, abdominal binder in place, BRADLEY drain in place Ext: No gross muscle atrophy, no edema, no contractures Psych: Drowsy, cooperative, oriented x 1 Acute cholecystitis status postcholecystectomy managed by surgery VRE bacteremia due to above: Patient currently on IV daptomycin 500 mg every 24 hours (D10), IV Zosyn 3.375 g every 8 hours (D10). Repeat BCx negative so far. Discussed with Dr. Edgar, no new findings on CT, continue current antibiotic regimen. Plans for 7 days of Daptomycin and Zosyn on discharge. PICC line order placed. Acute encephalopathy: Likely metabolic versus septic. Improving. Fall precautions. Acute blood loss anemia: Intraoperatively. Status post 4 units of PRBCs, and 1 unit of platelets. Monitor CBC. Transfuse if Hg < 7. Acute hypoxic respiratory failure due to right pleural effusion: Pulmonary on board. No plans for thoracentesis. Currently on 2L NC. Insulin-dependent diabetes: Sliding scale insulin, every 6 hours, monitor for hypoglycemia. Resolved: Hemorrhagic shock, Ventilator dependent respiratory failure, Hypokalemia Chronic: Lewy body dementia, Parkinson's disease Depression History of CVA History of hypertension Dyslipidemia RONNELL CODE STATUS: FULL CODE DVT Prophylaxis: SCD GI Prophylaxis: Protonix IV Designated medical POA if patient is not able to make medical decisions for themselves: I have reviewed the following solution consultant notes: ID, Surgery, Pulmonary I have reviewed the results of the following tests: CBC and BMP I have ordered the following tests: I have discussed the care of this patient with the following independent historian: I have independently interpreted the following test below: I have discussed the management of this patient with the following physician: Objective - Vital Signs Vital signs: Vital Signs Temp 99.8 F H 03/06/24 07:38 Pulse 73 03/06/24 07:38 Resp 17 03/06/24 07:38 BP 132/61 03/06/24 07:38 Pulse Ox 92 L 03/06/24 08:26 FiO2 30 02/26/24 15:10 Intake & Output 03/05/24 03/06/24 03/06/24 18:59 06:59 18:59 Output Total 500 200 Balance -500 -200 Weight 100 kg Output: Urine 500 200 Other: Voiding Method Indwelling Catheter Indwelling Catheter Indwelling Catheter # Bowel Movements 1 ABP, PAP, CO, CI - Last Documented Arterial Blood Pressure 117/42 - Labs CBC & Chem 7: 03/06/24 10:33 03/06/24 10:33 Labs: Abnormal Lab Results - Last 24 Hours (Table) 03/05/24 03/05/24 03/06/24 Range/Units 11:55 18:28 00:21 POC Glucose (mg/dL) 136 H 135 H 141 H (70-110) mg/dL 03/06/24 Range/Units 06:10 POC Glucose (mg/dL) 138 H (70-110) mg/dL
[2024-03-06 17:18] LABS: Glucose,Whole Blood 110 mg/dL (70-110)
[2024-03-07 00:14] LABS: Glucose,Whole Blood 130 mg/dL (70-110)
[2024-03-07 06:23] LABS: Glucose,Whole Blood 131 mg/dL (70-110)
[2024-03-07 06:39] LABS: HGB 8.6 gm/dL (13.0-17.5); Hypochromasia Slight; MCH 28.1 pg (25.0-35.0); MCHC 31.7 g/dL (31.0-37.0); MCV 88.7 fL (80.0-100.0); Mean Platelet Volume 7.4; Platelet Count 682 k/uL (150-450); Poikilocytosis Slight; RBC 3.05 m/uL (4.30-5.90); RDW 15.1 % (11.5-15.5); WBC 14.2 k/uL (3.8-10.6)
[2024-03-07 06:42] LABS: African American GFR (CKD) >90 (>60 ml/min/1.73 sqM); Anion Gap 3 mmol/L; Blood Urea Nitrogen 13 mg/dL (9-20); Calcium 7.6 mg/dL (8.4-10.2); Carbon Dioxide 24 mmol/L (22-30); Chloride 108 mmol/L (98-107); Glucose 111 mg/dL (74-99); Non-African American GFR(CKD) >90 (>60 ml/min/1.73 sqM); Potassium 3.6 mmol/L (3.5-5.1); Sodium 135 mmol/L (137-145)
--- NOTE | 2024-03-07 08:43 | P.PN ---
Subjective Progress Note Date: 03/07/24 68-year-old male with a past medical history of hypertension, hyperlipidemia, CVA, insulin-dependent diabetes mellitus, Lewy body dementia, Parkinson's disease, and obstructive sleep apnea. He presented to the emergency department 02/22/2024 with a chief complaint of chest pain. Patient underwent extensive evaluation in the emergency department. Vital signs upon arrival show blood pressure 138/79, heart rate 90, respiratory rate 19, temperature 98.4 F, and SpO2 98% on room air. EKG showing normal sinus rhythm at 91 bpm with right bundle branch block. Chest x-ray completed negative for acute cardiopulmonary process. Labs completed and reviewed. CBC showing leukocytosis with WBC count of 14.7 otherwise normal findings. Coagulation profile showing elevated PT of 12.9, INR of 1.2, and D-dimer of 1.93. BMP unremarkable with exception of glucose of 179. Liver profile showing hyperbilirubinemia with elevated transaminases with total bili of 2.2, AST of 224, and alkaline phosphatase of 233. Troponin was negative at less than 0.012. CTA chest completed negative for PE. Patient was admitted under our services with consultation to cardiology. Gallbladder ultrasound showed findings concerning for acute cholecystitis with distended gallbladder, wall thickening with pericholecystic fluid and sludge. Consult placed to general surgeon. Patient underwent cholecystectomy. Procedure complicated by significant blood loss. Patient was subsequently moved to medical ICU for further recovery. Blood cultures 1 out of 2 growing Enterococcus, likely VRE, ID consulted. Eventually extubated and downgraded to the medical floor. He has persistent fevers, CT AP ordered showing free fluid and free air with drainage tube in the gallbladder fossa, mottled gas near the drainage catheter tip, free air in the abdomen under the right diaphragm, right pleural effusion with consolidation, trace left pleural effusion, large amount of stool. He is currently maintained on Daptomycin 500 mg IV QD and Zosyn 3.375g IV TID with plans to continue IV antibiotics for 7 days on discharge. 03/07 Patient was seen and examined. Undergoing PICC line. He has been very sleepy. Maintained on Daptomycin 500 mg IV QD and Zosyn 3.375g IV TID. Tolerating NDD1 diet. CBC WBC 14.2, RBC 3.05, Hg 8.6, Hct 27, Plt 682. BMP Na 135, Cl 108, glu 111, Ca 7.6. Tmax 99.7F over the past 24H. General: Not in acute distress Derm: Warm, dry Head: Atraumatic, normocephalic, symmetric Eyes: EOMI, pupils equal and reactive, anicteric sclera Mouth: No lip lesion, mucus membranes moist Cardiovascular: S1S2 reg, no murmur Lungs: CTA bilateral, no rhonchi, no rales, no accessory muscle use, supplemental oxygen Abdominal: Soft, nontender to palpation, abdominal binder in place, BRADLEY drain in place Ext: No gross muscle atrophy, no edema, no contractures Psych: Drowsy, cooperative, oriented x 1 Acute cholecystitis status postcholecystectomy managed by surgery VRE bacteremia due to above: Patient currently on IV daptomycin 500 mg every 24 hours (D12), IV Zosyn 3.375 g every 8 hours (D12). Repeat BCx negative so far. Discussed with Dr. Edgar, no new findings on CT, continue current antibiotic regimen. Plans for 7 days of Daptomycin and Zosyn on discharge. PICC line order placed. Acute encephalopathy: Likely metabolic versus septic. Improving. Fall precautions. Acute blood loss anemia: Intraoperatively. Status post 4 units of PRBCs, and 1 unit of platelets. Monitor CBC. Transfuse if Hg < 7. Acute hypoxic respiratory failure due to right pleural effusion: Pulmonary on board. No plans for thoracentesis. Currently on 2L NC. Insulin-dependent diabetes: Sliding scale insulin, every 6 hours, monitor for hypoglycemia. Resolved: Hemorrhagic shock, Ventilator dependent respiratory failure, Hypokalemia Chronic: Lewy body dementia, Parkinson's disease Depression History of CVA History of hypertension Dyslipidemia RONNELL CODE STATUS: FULL CODE DVT Prophylaxis: SCD GI Prophylaxis: Protonix IV Designated medical POA if patient is not able to make medical decisions for themselves: Dispo: Patient is extremely debilitated. Tentative plans for [facility] with IV antibiotics. Overall prognosis is poor. I have reviewed the following computer consultant notes: I have reviewed the results of the following tests: CBC and BMP I have ordered the following tests: I have discussed the care of this patient with the following independent historian: MARLEE. I have independently interpreted the following test below: I have discussed the management of this patient with the following physician: Objective - Vital Signs Vital signs: Vital Signs Temp 98.5 F 03/07/24 07:32 Pulse 78 03/07/24 07:32 Resp 24 03/07/24 07:32 BP 133/82 03/07/24 07:32 Pulse Ox 95 03/07/24 07:32 FiO2 30 02/26/24 15:10 Intake & Output 03/06/24 03/07/24 03/07/24 18:59 06:59 18:59 Output Total 800 300 Balance -800 -300 Weight 97.5 kg Output: Urine 800 300 Other: Voiding Method Indwelling Catheter Indwelling Catheter ABP, PAP, CO, CI - Last Documented Arterial Blood Pressure 117/42 - Labs CBC & Chem 7: 03/07/24 06:10 03/07/24 06:10 Labs: Abnormal Lab Results - Last 24 Hours (Table) 03/06/24 03/06/24 03/06/24 Range/Units 10:33 10:33 12:23 WBC (3.8-10.6) k/uL RBC 2.97 L (4.30-5.90) m/uL Hgb 8.2 L (13.0-17.5) gm/dL Hct 26.3 L (39.0-53.0) % Plt Count 658 H (150-450) k/uL Sodium 136 L (137-145) mmol/L Chloride 110 H (98-107) mmol/L Creatinine 0.63 L (0.66-1.25) mg/dL Glucose 110 H (74-99) mg/dL POC Glucose (mg/dL) 117 H (70-110) mg/dL Calcium 7.3 L (8.4-10.2) mg/dL 03/07/24 03/07/24 03/07/24 Range/Units 00:13 06:10 06:10 WBC 14.2 H (3.8-10.6) k/uL RBC 3.05 L (4.30-5.90) m/uL Hgb 8.6 L (13.0-17.5) gm/dL Hct 27.0 L (39.0-53.0) % Plt Count 682 H (150-450) k/uL Sodium 135 L (137-145) mmol/L Chloride 108 H (98-107) mmol/L Creatinine (0.66-1.25) mg/dL Glucose 111 H (74-99) mg/dL POC Glucose (mg/dL) 130 H (70-110) mg/dL Calcium 7.6 L (8.4-10.2) mg/dL 03/07/24 Range/Units 06:21 WBC (3.8-10.6) k/uL RBC (4.30-5.90) m/uL Hgb (13.0-17.5) gm/dL Hct (39.0-53.0) % Plt Count (150-450) k/uL Sodium (137-145) mmol/L Chloride (98-107) mmol/L Creatinine (0.66-1.25) mg/dL Glucose (74-99) mg/dL POC Glucose (mg/dL) 131 H (70-110) mg/dL Calcium (8.4-10.2) mg/dL Microbiology - Last 24 Hours (Table) 03/01/24 13:12 Blood Culture - Final Blood
[2024-03-07 11:22] LABS: Glucose,Whole Blood 126 mg/dL (70-110)
--- NOTE | 2024-03-07 11:58 | P.PN ---
Subjective Progress Note Date: 03/07/24 This is a 68-year-old male patient who is currently intubated on mechanical ventilator. The patient was taken to the operating room for acute cholecystitis and bacteremia. The patient was found to have severe acute cholecystitis and the patient was initially supposed to have a laparoscopic cholecystectomy and this was converted to an open procedure. The patient was found to have significant adhesions. The gallbladder was taken out. The patient encountered bleeding and estimated blood loss was in the order of 1000 cc. The patient accordingly was given a total of 1.5 L of crystalloid in the operating room, 1 unit of packed RBC, a total of 1000 cc of albumin. Output from the BRADLEY drain is minimal at this point in time. The patient is currently on propofol running at 15 mcg/kg/min. He is on assist-control mode of mechanical ventilation at a rate of 16, tidal volume of 400, FiO2 40% with a PEEP of 5. The blood pressure was soft in the ICU and the patient was given additional liter of lactated Ringer. Blood gas showed a pH of 7.38 with a pCO2 of 40 and pO2 of more than 420. FiO2 was dropped accordingly. Chest x-ray shows borderline heart size and some atelectatic change in the left midlung. The patient's blood culture showing Enterococcus faecium and based on that the patient was kept on a combination of Zosyn and daptomycin. No pressors for now. Note that the patient is known to have previous history of CVA. He has insulin-dependent diabetes mellitus and hypertension hyperlipidemia and Lewy body dementia and Parkinson's disease. He has also history of obstructive sleep apnea. His gallbladder ultrasound that was done at the time of admission showed acute cholecystitis with distended gallbladder wall thickening and the CT of the chest that was done on 02/23/2024 showed no evidence of any pulmonary embolism. The lungs were essentially clear from any acute pulmonary filtration. On 02/25/2024, the patient remains intubated on the mechanical ventilator. No significant events overnight. The patient is postop day #1 following an open cholecystectomy. Output from the BRADLEY drain is minimal at this point in time. The patient is currently on propofol which is running at 20 mcg/kg/min. He remains on assist-control mode of mechanical ventilation at rate of 60, tidal volume of 450, FiO2 of 30% with a PEEP of 5. Blood gas showed a pH of 7.41 with a pCO2 of 42 and pO2 of 155. The patient was given a total of 2 units of packed RBC postop. He was also given a unit of platelets. No active bleeding. Remains on lactated Ringer at rate of 125 cc an hour. Remains NPO. No pressors for now and the norepinephrine has been discontinued. The white cell count of 12.2 with a hemoglobin 9.8 and a platelet count of 201. BUN is 22 with a creatinine 0.9 and his sodium level is 136. AST is 196, ALT is 139 with an alkaline phosphatase of 115. Cultures positive for Enterococcus faecium and the patient remains on a combination of Zosyn and daptomycin. Afebrile. He modynamically stable at this point in time. 02/26/2024, the patient is quite lethargic, sleepy, rigid, slightly responsive to verbal stimulation. He grimaces to painful stimulation. To my understanding, the patient has significant Lewy body dementia with chronic rigidity and cognitive impairment. The patient remains on the mechanical ventilator. Off sedation. Currently on assist-control mode with rate of 16, tidal volume of 400 and FiO2 of 30% with a PEEP of 5. The blood gas from today shows a pH of 7.48 with a pCO2 of 38 and pO2 of 87. Chest x-ray from today shows patchy opacity in the right lung base/atelectasis. Orogastric and orotracheal tube are both in place. The patient is hemodynamically stable. The patient is afebrile. The patient on lactated Ringer at rate of 125 cc an hour. BRADLEY drain output is serous. The LFTs are essentially within normal limits. Sodium is at 136, BUN is 20 with a creatinine of 0.8 and a potassium levels of 3.8. The white cell count 11.2 with a hemoglobin 8.4 and a platelet count of 146. Remains on Zosyn and daptomycin. No other significant events overnight. 02/27/2024, the patient is extubated and the patient is currently on 2 L of oxygen by nasal cannula. Significant neurologic impairment and cognitive impairment and rigidity. Does not communicate. Does not follow any simple commands. Unable to swallow. Respiratory status is stable. Hemodynamically stable. Repeat chest x-ray was done today and the patient was found to have some right- sided atelectasis and small right-sided pleural effusion. Abdomen is nondistended. Surgical wound site is dry clean and intact. BRADLEY drain is in place. Output overnight was elevated and the patient produced approximately 490 cc over the past 8 hours and currently the output is down to 5 to 10 cc an hour. Output is somewhat bloody/serosanguineous. Remains on lactated Ringer at 125 cc an hour. No pressors. Remains on Zosyn and vancomycin. Hemoglobin is down to 7.3 with a white cell count of 13.2. Electrolytes are all within normal limits. Afebrile. 02/28/2024, the patient is being seen for a follow-up. The patient got transferred out of the intensive care unit yesterday after being extubated. For now, the patient has an NG tube placed and the patient is sleeping Glucerna for enteral feeding and nutritional support. The abdominal scar is dry clean and intact. BRADLEY drain is in place and the output is in the order of 10 cc an hour. Hemoglobin has dropped down to 6.3 and the patient will receive another unit of packed RBC. No evidence of any GI bleeding at this point in time. No coffee- ground emesis. Hemodynamically stable. Neurologic status is unchanged and the patient has significant neurologic impairment due to his Lewy body dementia. The white cell count 11, hemoglobin is 6.3 and a platelet count of 195, BUN is 21 with a creatinine of 0.7. Stable 2 L of oxygen by nasal cannula with a pulse ox of 98%. The patient is postop day #4 following an open cholecystectomy. The patient is seen today February 29, 2024 in follow-up on the regular medical floor. He is currently sitting up in bed. Awake and alert in no acute distress. Maintaining O2 saturation in the 90s on 2 L/min per nasal cannula. Nasogastric tube remains in place. He is being nourished with Glucerna at 60 MLS per hour. He has lactated Ringer's at 75 MLS per hour. BRADLEY drain remains in place. Abdominal dressing is dry and intact. Blood cultures were positive for Enterococcus faecium VRE. Follow-up blood cultures revealing no growth. White count 11.3. Hemoglobin 7.1. Platelets 240. Sodium 138. Potassium 3.6. Bicarb 24. BUN 20. Creatinine 0.79. Glucose 140. He remains on daptomycin and Zosyn. Chest x-ray reveals evidence of a right pleural effusion. Ultrasound today reveals only a 3.6 cm pocket. He is status post 3 units of packed red blood cells and 1 unit of platelets this admission. The patient is seen today March 01, 2024 in follow-up on the regular medical floor. He is currently resting in bed. He is maintaining O2 saturations in the 90s on 2 L/min per nasal cannula. His nasogastric tube had to be replaced as the patient had pulled it out earlier. Follow-up chest x-ray shows the nasogastric tube in place with needing advancement of 10 cm. There is a continued moderate right size pleural effusion with associated consolidation/atelectasis. Improved aeration of the right upper lung. Initial blood cultures were positive for Enterococcus faecium VRE. Follow-up blood cultures revealed no growth. He remains on antibiotics in the form of Zosyn and daptomycin. He is being nourished with Glucerna at 60 MLS per hour. White count 12.1. Hemoglobin 6.7. Platelets 258. Sodium 143. Potassium 3.9. Bicarb 24. BUN 19. Creatinine 0.9. Glucose 121. He is receiving a fourth unit of packed red blood cells this admission. The patient is seen today March 02, 2024 in follow-up on the regular medical floor. He is currently resting in bed. Arousable, weak. Maintaining good O2 saturations in the mid 90s on 2 L/min per nasal cannula. Remains slightly afebrile. Hemodynamically stable. He has pulled out another nasogastric tube. He is currently on daptomycin and Zosyn. Blood cultures were initially positive for Enterococcus faecium VRE. Follow-up blood cultures are revealing no growth. White count 12.8. Hemoglobin 8.8. Platelets 419. Sodium 138. Potassium 4.0. Bicarb 21. BUN 20. Creatinine 0.70. Glucose 131. The patient is seen today March 03, 2024 in follow-up on the regular medical floor. He is a bit more awake today. Answering some simple questions. He is maintaining good O2 saturations in the 90s on 2 L/min per nasal cannula. He has pulled out his nasogastric tubes on multiple occasions. He is currently out again. Remains on antibiotics in the form of daptomycin and Zosyn. Recent chest x-ray continues to show some right-sided pleural effusion. Ultrasound of the chest did not reveal any significant fluid. No plans for thoracentesis at this time. Follow-up blood cultures revealed no growth. Urine culture revealed no growth. White count 12.6. Hemoglobin 8.3. Platelets 421. Sodium 140. Potassium 3.9. Bicarb 22. BUN 19. Creatinine 0.72. The patient is seen today March 04, 2024 in follow-up on the regular medical floor. Postoperative day #9. He is currently resting comfortably in bed. Awake and alert in no acute distress. He is more vocal today compared to yesterday. He is maintaining good O2 saturations in the 90s on 2-1/2 L/min per nasal cannula. He was eating and drinking well at breakfast. He remains on D5W and half-normal saline at 50 MLS per hour. Antibiotics in the form of Zosyn and daptomycin. Heparin for DVT prophylaxis. Plavix remains on hold white count 11.3. Hemoglobin 9.2. Platelets 511. Sodium 139. Potassium 3.8. Bicarb 25. BUN 16. Creatinine 0.68. Glucose 117. The patient is seen today March 05 2024 in follow-up on the regular medical floor. Postoperative day #10. He is currently awake and alert in no acute distress. He is complaining of some surgical site pain. He denies any shortness of breath. He is more interactive again today. Follow-up blood cultures revealed no growth. Urine culture revealed no growth. White count 10.0. Hemoglobin 8.2. Platelets 555. Sodium 137. Potassium 3.4. Bicarb 25. BUN 13. Creatinine 0.67. Glucose 130. He remains on heparin for DVT prophylaxis. Antibiotics in the form of Zosyn and daptomycin. Dilaudid for pain control. The patient is seen today March 06, 2024 in follow-up on the regular medical floor. Postoperative day #11. He is resting comfortably in bed. Awake and alert in no acute distress. He is maintaining O2 saturations in the 90s on 3 L/min per nasal cannula. He has been afebrile. Hemodynamically stable. White count 10.5. Hemoglobin 8.2. Sodium 136. Potassium 3.7. Bicarb 24. BUN 13. Creatinine 0.63. He remains on daptomycin and Zosyn. Follow-up blood cultures revealed no growth. The patient is seen today March 07, 2024 in follow-up on the regular medical floor. Postoperative day #12. He is currently resting in bed. He is awake and alert. Yelling out for "Chhaya" very loudly. He is currently afebrile. Hemodynamically stable. Maintaining O2 saturations in the 90s on 3 L/min per nasal cannula. He is status post 4 units of packed red blood cells this admission. 1 unit of platelets. White count 14.2. Hemoglobin 8.6. Platelets 682. Sodium 135. Potassium 3.6. Bicarb 24. BUN 13. Creatinine 0.69. Glucose 111. He is currently on D5 and half-normal saline at 50 MLS per hour. Heparin for DVT prophylaxis. His blood cultures from 02/23/2024 were positive for Enterococcus faecium VRE. Antibiotics in the form of Zosyn and daptomycin. Follow-up blood cultures revealed no growth. Objective - Vital Signs Vital signs: Vital Signs Temp 98.5 F 03/07/24 07:32 Pulse 78 03/07/24 07:32 Resp 24 03/07/24 07:32 BP 133/82 03/07/24 07:32 Pulse Ox 95 03/07/24 07:32 FiO2 30 02/26/24 15:10 Intake & Output 03/06/24 03/07/24 03/07/24 18:59 06:59 18:59 Intake Total 240 Output Total 800 300 Balance -800 -300 240 Weight 97.5 kg Intake: Oral 240 Output: Urine 800 300 Other: Voiding Method Indwelling Catheter Indwelling Catheter Indwelling Catheter # Bowel Movements 1 ABP, PAP, CO, CI - Last Documented Arterial Blood Pressure 117/42 - Exam GENERAL EXAM: Alert, cognitively impaired, yelling out loudly today, 68-year-old male, on 3 L nasal cannula, in no apparent distress. HEAD: Normocephalic. EYES: Normal reaction of pupils, equal size. NOSE: Place. Clear with pink turbinates. THROAT: No erythema or exudates. NECK: No masses, no JVD. CHEST: No chest wall deformity. LUNGS: Equal air entry with no crackles, wheeze, rhonchi or dullness. CVS: S1 and S2 normal with no audible murmur, regular rhythm. ABDOMEN: Surgical incision clean dry and well-approximated. BRADLEY drain remains in place. SPINE: No scoliosis or deformity SKIN: No rashes CENTRAL NERVOUS SYSTEM: Cognitively impaired, tone is normal in all 4 extremities. EXTREMITIES: There is no peripheral edema. No clubbing, no cyanosis. Peripheral pulses are intact. - Labs CBC & Chem 7: 03/07/24 06:10 03/07/24 06:10 Labs: Abnormal Lab Results - Last 24 Hours (Table) 03/06/24 03/07/24 03/07/24 Range/Units 12:23 00:13 06:10 WBC 14.2 H (3.8-10.6) k/uL RBC 3.05 L (4.30-5.90) m/uL Hgb 8.6 L (13.0-17.5) gm/dL Hct 27.0 L (39.0-53.0) % Plt Count 682 H (150-450) k/uL Sodium (137-145) mmol/L Chloride (98-107) mmol/L Glucose (74-99) mg/dL POC Glucose (mg/dL) 117 H 130 H (70-110) mg/dL Calcium (8.4-10.2) mg/dL 03/07/24 03/07/24 03/07/24 Range/Units 06:10 06:21 11:20 WBC (3.8-10.6) k/uL RBC (4.30-5.90) m/uL Hgb (13.0-17.5) gm/dL Hct (39.0-53.0) % Plt Count (150-450) k/uL Sodium 135 L (137-145) mmol/L Chloride 108 H (98-107) mmol/L Glucose 111 H (74-99) mg/dL POC Glucose (mg/dL) 131 H 126 H (70-110) mg/dL Calcium 7.6 L (8.4-10.2) mg/dL Microbiology - Last 24 Hours (Table) 03/01/24 13:12 Blood Culture - Final Blood Assessment and Plan Assessment: Acute cholecystitis and the patient underwent an open cholecystectomy. The patient is currently postop day #12. Significant blood loss intraoperatively a nd the patient was resuscitated with fluids, colloids/albumin and received 4 units of packed RBC and one platelets. Current hemoglobin 8.6. No evidence of any acute bleeding and the output from the BRADLEY drain is minimal at this point in time. Acute enterococcal septicemia secondary to cholecystitis and the patient is currently on a combination of daptomycin and Zosyn. The patient has Enterococcus faecium VRE in the blood cultures Acute hypoxemic respiratory failure post gallbladder surgery. Patient was extubated to nasal cannula on 02/26/2024, currently on 2 L of oxygen by nasal cannula. Chest x-ray continues to show right-sided pleural effusion Previous history of CVA History of hypertension Hyperlipidemia Lewy body dementia with Parkinson disease at baseline with significant motor r igidity and cognitive impairment More awake and alert today. Tolerating a dysphagia 1 pured diet with one-to-one supervision Plan: The patient was seen and evaluated Labs and medications reviewed Titrate down the FiO2 as tolerated Continue the current treatment plan Antibiotics per ID service Plan is for subacute rehab at discharge This patient was seen independently by the pulmonary nurse practitioner addressing pulmonary issues I have personally seen and examined the patient, performed the documentation and the assessment and plan as written. Number of minutes spent on the visit: 24
--- NOTE | 2024-03-07 12:26 | P.PN ---
Subjective Progress Note Date: 03/07/24 CHIEF COMPLAINT: Acute cholecystitis HISTORY OF PRESENT ILLNESS: Patient is postop day #12 status post open cholecystectomy. Patient is awake and alert lying in bed comfortably. He did get a PICC line placed today. Patient did have low-grade temps of 99 yesterday. Currently afebrile. White count did go up from 10.5 to 14.2. Hgb 8.6 patient tolerating diet. He did have bowel movement. PHYSICAL EXAM: VITAL SIGNS: Reviewed. GENERAL: no acute distress. ABDOMEN: Soft. Nondistended. Incision site medial aspect slightly firm no drainage. Mild tenderness with palpation. BRADLEY drain old blood NEUROLOGIC: More awake and alert ASSESSMENT: 1. Acute on chronic cholecystitis 2. VRE bacteremia 3. Coagulopathy PLAN: -Continue chopped diet -Continue antibiotics per ID service -Continue to increase activity level -Plan for ECF at discharge -Incisional dressing to be changed today by nursing staff -DVT prophylaxis subcu heparin Physician Physiologist note has been reviewed by physician. Signing provider agrees with the documented findings, assessment, and plan of care. Objective - Vital Signs Vital signs: Vital Signs Temp 98.5 F 03/07/24 07:32 Pulse 78 03/07/24 07:32 Resp 24 03/07/24 07:32 BP 133/82 03/07/24 07:32 Pulse Ox 95 03/07/24 07:32 FiO2 30 02/26/24 15:10 Intake & Output 03/06/24 03/07/24 03/07/24 18:59 06:59 18:59 Intake Total 240 Output Total 800 300 Balance -800 -300 240 Weight 97.5 kg Intake: Oral 240 Output: Urine 800 300 Other: Voiding Method Indwelling Catheter Indwelling Catheter Indwelling Catheter # Bowel Movements 1 ABP, PAP, CO, CI - Last Documented Arterial Blood Pressure 117/42 - Labs CBC & Chem 7: 03/07/24 06:10 03/07/24 06:10 Labs: Abnormal Lab Results - Last 24 Hours (Table) 03/06/24 03/07/24 03/07/24 Range/Units 12:23 00:13 06:10 WBC 14.2 H (3.8-10.6) k/uL RBC 3.05 L (4.30-5.90) m/uL Hgb 8.6 L (13.0-17.5) gm/dL Hct 27.0 L (39.0-53.0) % Plt Count 682 H (150-450) k/uL Sodium (137-145) mmol/L Chloride (98-107) mmol/L Glucose (74-99) mg/dL POC Glucose (mg/dL) 117 H 130 H (70-110) mg/dL Calcium (8.4-10.2) mg/dL 03/07/24 03/07/24 03/07/24 Range/Units 06:10 06:21 11:20 WBC (3.8-10.6) k/uL RBC (4.30-5.90) m/uL Hgb (13.0-17.5) gm/dL Hct (39.0-53.0) % Plt Count (150-450) k/uL Sodium 135 L (137-145) mmol/L Chloride 108 H (98-107) mmol/L Glucose 111 H (74-99) mg/dL POC Glucose (mg/dL) 131 H 126 H (70-110) mg/dL Calcium 7.6 L (8.4-10.2) mg/dL Microbiology - Last 24 Hours (Table) 03/01/24 13:12 Blood Culture - Final Blood
--- NOTE | 2024-03-07 14:39 | P.DS ---
Providers Date of admission: 02/24/24 09:10 Expected date of discharge: 03/07/24 Attending physician: Carito Vicente MD Consults: 02/23/24 10:23 Consult Physician Urgent Consulting Provider: Wan Thorne Consult Reason/Comments: acute cholecystitis Do you want consulting provider notified?: Yes 02/24/24 10:17 Consult Physician Routine Consulting Provider: Kai Edgar Consult Reason/Comments: VRE Bacteremia Do you want consulting provider notified?: Yes Primary care physician: Stated None Hospital Course: 68-year-old male with a past medical history of hypertension, hyperlipidemia, CVA, insulin-dependent diabetes mellitus, Lewy body dementia, Parkinson's disease, and obstructive sleep apnea. He presented to the emergency department 02/22/2024 with a chief complaint of chest pain. Patient underwent extensive evaluation in the emergency department. Vital signs upon arrival show blood pressure 138/79, heart rate 90, respiratory rate 19, temperature 98.4 F, and SpO2 98% on room air. EKG showing normal sinus rhythm at 91 bpm with right bundle branch block. Chest x-ray completed negative for acute cardiopulmonary process. Labs completed and reviewed. CBC showing leukocytosis with WBC count of 14.7 otherwise normal findings. Coagulation profile showing elevated PT of 12.9, INR of 1.2, and D-dimer of 1.93. BMP unremarkable with exception of glucose of 179. Liver profile showing hyperbilirubinemia with elevated transaminases with total bili of 2.2, AST of 224, and alkaline phosphatase of 233. Troponin was negative at less than 0.012. CTA chest completed negative for PE. Patient was admitted under our services with consultation to cardiology. Gallbladder ultrasound showed findings concerning for acute cholecystitis with distended gallbladder, wall thickening with pericholecystic fluid and sludge. Consult placed to general surgeon. Patient underwent cholecystectomy. Procedure complicated by significant blood loss. Patient was subsequently moved to medical ICU for further recovery. Blood cultures 1 out of 2 growing Enterococcus, likely VRE, ID consulted. Eventually extubated and downgraded to the medical floor. He has persistent fevers, CT AP ordered showing free fluid and free air with drainage tube in the gallbladder fossa, mottled gas near the drainage catheter tip, free air in the abdomen under the right diaphragm, right pleural effusion with consolidation, trace left pleural effusion, large amount of stool. He is currently maintained on Daptomycin 500 mg IV QD and Zosyn 3.375g IV TID with plans to continue IV antibiotics for 7 days on discharge. 03/07 Patient was seen and examined. Undergoing PICC line. He has been very sleepy. Maintained on Daptomycin 500 mg IV QD and Zosyn 3.375g IV TID. Tolerating NDD1 diet. CBC WBC 14.2, RBC 3.05, Hg 8.6, Hct 27, Plt 682. BMP Na 135, Cl 108, glu 111, Ca 7.6. Tmax 99.7F over the past 24H. Discussed with Eulalia [employer], restart ASA and Plavix, cleared for discharge. General: Not in acute distress Derm: Warm, dry Head: Atraumatic, normocephalic, symmetric Eyes: EOMI, pupils equal and reactive, anicteric sclera Mouth: No lip lesion, mucus membranes moist Cardiovascular: S1S2 reg, no murmur Lungs: CTA bilateral, no rhonchi, no rales, no accessory muscle use, supplemental oxygen Abdominal: Soft, nontender to palpation, abdominal binder in place, BRADLEY drain in place Ext: No gross muscle atrophy, no edema, no contractures Psych: Drowsy, cooperative, oriented x 1 Discharge Diagnosis: Acute cholecystitis status postcholecystectomy managed by surgery VRE bacteremia due to above Acute encephalopathy Acute blood loss anemia Acute hypoxic respiratory failure due to right pleural effusion Insulin-dependent diabetes Resolved: Hemorrhagic shock, Ventilator dependent respiratory failure, Hypokalemia This complex discharge took 35 minutes to complete. Patient Condition at Discharge: Stable Plan - Discharge Summary New Discharge Prescriptions: No Action Aspirin EC [Ecotrin Low Dose] 81 mg PO DAILY@0700 Vit C/E/Zn/Coppr/Lutein/Zeaxan [Preservision Areds 2 Softgel] 2 cap PO DAILY@0700 Escitalopram [Lexapro] 20 mg PO DAILY@0700 INSULIN ASPART (NovoLOG) [NovoLOG (formulary)] See Protocol SQ AC- BID@0700,1600 Pantoprazole [Protonix] 40 mg PO DAILY@0700 Donepezil [Aricept] 10 mg PO HS@1900 Midodrine HCl [ProAmantine] 2.5 mg PO Q8H PRN PRN Reason: Blood Pressure - Low QUEtiapine [SEROquel] 25 mg PO DAILY@1700 Loratadine 10 mg PO HS@1900 Meclizine HCl 25 mg PO HS@1900 Carbidopa-Levodopa 25-100 mg [Sinemet 25-100 mg] 1 tab PO TID@1100,1400,1700 Clopidogrel [Plavix] 75 mg PO DAILY@0700 levETIRAcetam [Keppra] 500 mg PO BID@0700,1900 Acetaminophen Tab [Tylenol] 650 mg PO Q6HR PRN PRN Reason: GENERAL DISCOMFORT Discharge Medication List Aspirin EC [Ecotrin Low Dose] 81 mg PO DAILY@0701/09/22 [History] Meclizine HCl 25 mg PO HS@19001/09/22 [History] Vit C/E/Zn/Coppr/Lutein/Zeaxan [Preservision Areds 2 Softgel] 2 cap PO DAILY@0701/09/22 [History] Carbidopa-Levodopa 25-100 mg [Sinemet 25-100 mg] 1 tab PO TID@1100,1400,1700 09/29/23 [History] Escitalopram [Lexapro] 20 mg PO DAILY@0710/12/23 [History] Clopidogrel [Plavix] 75 mg PO DAILY@0710/25/23 [History] INSULIN ASPART (NovoLOG) [NovoLOG (formulary)] See Protocol SQ AC-BID@0700,1600 10/25/23 [History] Pantoprazole [Protonix] 40 mg PO DAILY@0710/25/23 [History] Acetaminophen Tab [Tylenol] 650 mg PO Q6HR PRN 02/23/24 [History] Donepezil [Aricept] 10 mg PO HS@19002/23/24 [History] Loratadine 10 mg PO HS@19002/23/24 [History] Midodrine HCl [ProAmantine] 2.5 mg PO Q8H PRN 02/23/24 [History] QUEtiapine [SEROquel] 25 mg PO DAILY@1700 02/23/24 [History] levETIRAcetam [Keppra] 500 mg PO BID@0700,1900 02/23/24 [History] Follow up Appointment(s)/Referral(s): [facility], [NON-STAFF] - As Needed ([facility] REQUESTED RN TO EDUCATE/TEACH HOW TO ADMINISTER IV ABX) None,Stated [Primary Care Provider] - 1-2 days [facility], [REFERRING] - As Needed Wan Thorne MD [STAFF PHYSICIAN] - 1 Week Activity/Diet/Wound Care/Special Instructions: [facility] - [address], [place] [address] -
[2024-03-07 16:52] LABS: Glucose,Whole Blood 151 mg/dL (70-110)
--- NOTE | 2024-03-07 18:03 | P.PN ---
Subjective Progress Note Date: 03/07/24 Principal diagnosis: Reason for follow-up is acute cholecystitis and bacteremia Patient is a 68-year-old male with a past medical history significant for diabetes mellitus hypertension sleep apnea CVA TIA Parkinson disease patient was brought into the hospital initially for chest pain has been diagnosed with acute cholecystitis and also have VRE bacteremia. Patient is status post laparoscopic cholecystectomy on 02/24/2024 subsequent requiring admission to the ICU on the ventilator. On today's evaluation that is 03/07/2024,the patient did have resolution of his fever and is afebrile this morning the patient is breathing comfortably currently on 3 L current oxygen patient lethargic but arousable but not a very good historian no vomiting or diarrhea reported by the nursing staff. Patient white count is 14.2, creatinine 0.6 9 repeat culture has been negative Objective - Vital Signs Vital signs: Vital Signs Temp 98.6 F 03/07/24 14:00 Pulse 86 03/07/24 15:00 Resp 24 03/07/24 14:00 BP 111/63 03/07/24 14:00 Pulse Ox 93 L 03/07/24 15:00 FiO2 30 02/26/24 15:10 Intake & Output 03/06/24 03/07/24 03/07/24 18:59 06:59 18:59 Intake Total 640 Output Total 800 300 600 Balance -800 -300 40 Weight 97.5 kg Intake: Oral 640 Output: Urine 800 300 600 Other: Voiding Method Indwelling Catheter Indwelling Catheter Indwelling Catheter # Bowel Movements 1 ABP, PAP, CO, CI - Last Documented Arterial Blood Pressure 117/42 - Exam GENERAL DESCRIPTION: An elderly male lying in bed in no distress RESPIRATORY SYSTEM: Unlabored breathing , decreased breath sounds at bases HEART: S1 S2 regular rate and rhythm , ABDOMEN: Soft , no tenderness EXTREMITIES: No edema feet - Labs CBC & Chem 7: 03/07/24 06:10 03/07/24 06:10 Labs: Abnormal Lab Results - Last 24 Hours (Table) 03/07/24 03/07/24 03/07/24 Range/Units 00:13 06:10 06:10 WBC 14.2 H (3.8-10.6) k/uL RBC 3.05 L (4.30-5.90) m/uL Hgb 8.6 L (13.0-17.5) gm/dL Hct 27.0 L (39.0-53.0) % Plt Count 682 H (150-450) k/uL Sodium 135 L (137-145) mmol/L Chloride 108 H (98-107) mmol/L Glucose 111 H (74-99) mg/dL POC Glucose (mg/dL) 130 H (70-110) mg/dL Calcium 7.6 L (8.4-10.2) mg/dL 03/07/24 03/07/24 03/07/24 Range/Units 06:21 11:20 16:51 WBC (3.8-10.6) k/uL RBC (4.30-5.90) m/uL Hgb (13.0-17.5) gm/dL Hct (39.0-53.0) % Plt Count (150-450) k/uL Sodium (137-145) mmol/L Chloride (98-107) mmol/L Glucose (74-99) mg/dL POC Glucose (mg/dL) 131 H 126 H 151 H (70-110) mg/dL Calcium (8.4-10.2) mg/dL Microbiology - Last 24 Hours (Table) 03/01/24 13:12 Blood Culture - Final Blood Assessment and Plan (1) Sepsis Current Visit: Yes Status: Acute Code(s): A41.9 - SEPSIS, UNSPECIFIED ORGANISM SNOMED Code(s): 53732121 (2) Cholecystitis Current Visit: Yes Status: Acute Code(s): K81.9 - CHOLECYSTITIS, UNSPECIFIED SNOMED Code(s): 07525607 (3) VRE bacteremia Current Visit: Yes Status: Acute Code(s): R78.81 - BACTEREMIA; B95.2 - ENTEROCOCCUS THE CAUSE OF DISEASES CLASSIFIED ELSEWHERE; Z16.21 - RESISTANCE TO VANCOMYCIN SNOMED Code(s): 6968859072 (4) Allergy to cephalosporin Current Visit: Yes Status: Acute Code(s): Z88.1 - ALLERGY STATUS TO OTHER ANTIBIOTIC AGENTS SNOMED Code(s): 427333302 Plan: 1patient presented hospital with sepsis in this patient who did have fever elevated white count source is acute cholecystitis usually associated with a gram-negative bacteria and also secondary to Enterococcus 2-VRE bacteremia source could be acute gastritis 3-blood culture has been repeated and so far negative 4-patient did have CT abdominal pelvis which mention fluid collection questionably postop versus hematoma and may have responsible for his low-grade fever as repeat cultures so far negative 5-patient to continue the patient with the Zosyn and daptomycin to finish 2-week course of therapy Dictation was produced using [employer] dictation software. please excuse any grammatical, word or spelling errors.
[2024-03-07 23:11] LABS: Glucose,Whole Blood 144 mg/dL (70-110)
[2024-03-08 05:59] LABS: Glucose,Whole Blood 160 mg/dL (70-110)
[2024-03-08 09:31] LABS: Basophils % (A) 0 %; Eosinophils # (A) 0.2 k/uL (0-0.7); Eosinophils % (A) 1 %; HGB 8.3 gm/dL (13.0-17.5); Hypochromasia Moderate; Lymphocytes # (A) 0.8 k/uL (1.0-4.8); Lymphocytes % (A) 8 %; MCH 27.8 pg (25.0-35.0); MCHC 30.6 g/dL (31.0-37.0); MCV 90.8 fL (80.0-100.0); Mean Platelet Volume 7.6; Monocytes # (A) 0.7 k/uL (0-1.0); Monocytes % (A) 6 %; Neutrophils % (A) 84 %; Platelet Count 686 k/uL (150-450); RBC 2.98 m/uL (4.30-5.90); WBC 10.7 k/uL (3.8-10.6)
[2024-03-08 09:41] LABS: ALT 16 U/L (4-49); AST 26 U/L (17-59); African American GFR (CKD) >90 (>60 ml/min/1.73 sqM); Albumin 2.2 g/dL (3.5-5.0); Albumin/Globulin Ratio 0.8; Alkaline Phosphatase 83 U/L (38-126); Anion Gap 1 mmol/L; Blood Urea Nitrogen 15 mg/dL (9-20); Calcium 7.7 mg/dL (8.4-10.2); Carbon Dioxide 27 mmol/L (22-30); Chloride 109 mmol/L (98-107); Globulin 2.6 g/dL; Glucose 131 mg/dL (74-99); Non-African American GFR(CKD) >90 (>60 ml/min/1.73 sqM); Potassium 3.4 mmol/L (3.5-5.1); Sodium 137 mmol/L (137-145); Total Protein 4.8 g/dL (6.3-8.2)
[2024-03-08] MEDS ORDERED: POTASSIUM CHLORIDE ER 20 MEQ TAB.ER PO STA (11:09)
[2024-03-08] MEDS: POTASSIUM CHLORIDE 20 MEQ in WATER FOR INJECTION 1 100ML.BAG IVPB SCH (12:15)
[2024-03-08 12:28] LABS: Glucose,Whole Blood 149 mg/dL (70-110)
--- NOTE | 2024-03-08 13:25 | XR ---
EXAMINATION TYPE: XR chest 1V DATE OF EXAM: 03/08/2024 HISTORY: Shortness of breath. COMPARISON: 03/02/2024 TECHNIQUE: Single view of the chest is submitted. FINDINGS: Increasing large right sided pleural effusion. Patchy density left mid lung zone. Underlying nodule o r mass is not excluded. The heart is stable. Hilar and mediastinal structures are within normal limits. Degenerative changes are seen of the dorsal spine. IMPRESSION: 1. Increasing large right sided pleural effusion. Patchy density left mid lung zone. Underlying nodu le or mass is not excluded.
--- NOTE | 2024-03-08 13:34 | P.PN ---
Subjective Progress Note Date: 03/08/24 This is a 68-year-old male patient who is currently intubated on mechanical ventilator. The patient was taken to the operating room for acute cholecystitis and bacteremia. The patient was found to have severe acute cholecystitis and the patient was initially supposed to have a laparoscopic cholecystectomy and this was converted to an open procedure. The patient was found to have significant adhesions. The gallbladder was taken out. The patient encountered bleeding and estimated blood loss was in the order of 1000 cc. The patient accordingly was given a total of 1.5 L of crystalloid in the operating room, 1 unit of packed RBC, a total of 1000 cc of albumin. Output from the BRADLEY drain is minimal at this point in time. The patient is currently on propofol running at 15 mcg/kg/min. He is on assist-control mode of mechanical ventilation at a rate of 16, tidal volume of 400, FiO2 40% with a PEEP of 5. The blood pressure was soft in the ICU and the patient was given additional liter of lactated Ringer. Blood gas showed a pH of 7.38 with a pCO2 of 40 and pO2 of more than 420. FiO2 was dropped accordingly. Chest x-ray shows borderline heart size and some atelectatic change in the left midlung. The patient's blood culture showing Enterococcus faecium and based on that the patient was kept on a combination of Zosyn and daptomycin. No pressors for now. Note that the patient is known to have previous history of CVA. He has insulin-dependent diabetes mellitus and hypertension hyperlipidemia and Lewy body dementia and Parkinson's disease. He has also history of obstructive sleep apnea. His gallbladder ultrasound that was done at the time of admission showed acute cholecystitis with distended gallbladder wall thickening and the CT of the chest that was done on 02/23/2024 showed no evidence of any pulmonary embolism. The lungs were essentially clear from any acute pulmonary filtration. On 02/25/2024, the patient remains intubated on the mechanical ventilator. No significant events overnight. The patient is postop day #1 following an open cholecystectomy. Output from the BRADLEY drain is minimal at this point in time. The patient is currently on propofol which is running at 20 mcg/kg/min. He remains on assist-control mode of mechanical ventilation at rate of 60, tidal volume of 450, FiO2 of 30% with a PEEP of 5. Blood gas showed a pH of 7.41 with a pCO2 of 42 and pO2 of 155. The patient was given a total of 2 units of packed RBC postop. He was also given a unit of platelets. No active bleeding. Remains on lactated Ringer at rate of 125 cc an hour. Remains NPO. No pressors for now and the norepinephrine has been discontinued. The white cell count of 12.2 with a hemoglobin 9.8 and a platelet count of 201. BUN is 22 with a creatinine 0.9 and his sodium level is 136. AST is 196, ALT is 139 with an alkaline phosphatase of 115. Cultures positive for Enterococcus faecium and the patient remains on a combination of Zosyn and daptomycin. Afebrile. He modynamically stable at this point in time. 02/26/2024, the patient is quite lethargic, sleepy, rigid, slightly responsive to verbal stimulation. He grimaces to painful stimulation. To my understanding, the patient has significant Lewy body dementia with chronic rigidity and cognitive impairment. The patient remains on the mechanical ventilator. Off sedation. Currently on assist-control mode with rate of 16, tidal volume of 400 and FiO2 of 30% with a PEEP of 5. The blood gas from today shows a pH of 7.48 with a pCO2 of 38 and pO2 of 87. Chest x-ray from today shows patchy opacity in the right lung base/atelectasis. Orogastric and orotracheal tube are both in place. The patient is hemodynamically stable. The patient is afebrile. The patient on lactated Ringer at rate of 125 cc an hour. BRADLEY drain output is serous. The LFTs are essentially within normal limits. Sodium is at 136, BUN is 20 with a creatinine of 0.8 and a potassium levels of 3.8. The white cell count 11.2 with a hemoglobin 8.4 and a platelet count of 146. Remains on Zosyn and daptomycin. No other significant events overnight. 02/27/2024, the patient is extubated and the patient is currently on 2 L of oxygen by nasal cannula. Significant neurologic impairment and cognitive impairment and rigidity. Does not communicate. Does not follow any simple commands. Unable to swallow. Respiratory status is stable. Hemodynamically stable. Repeat chest x-ray was done today and the patient was found to have some right- sided atelectasis and small right-sided pleural effusion. Abdomen is nondistended. Surgical wound site is dry clean and intact. BRADLEY drain is in place. Output overnight was elevated and the patient produced approximately 490 cc over the past 8 hours and currently the output is down to 5 to 10 cc an hour. Output is somewhat bloody/serosanguineous. Remains on lactated Ringer at 125 cc an hour. No pressors. Remains on Zosyn and vancomycin. Hemoglobin is down to 7.3 with a white cell count of 13.2. Electrolytes are all within normal limits. Afebrile. 02/28/2024, the patient is being seen for a follow-up. The patient got transferred out of the intensive care unit yesterday after being extubated. For now, the patient has an NG tube placed and the patient is sleeping Glucerna for enteral feeding and nutritional support. The abdominal scar is dry clean and intact. BRADLEY drain is in place and the output is in the order of 10 cc an hour. Hemoglobin has dropped down to 6.3 and the patient will receive another unit of packed RBC. No evidence of any GI bleeding at this point in time. No coffee- ground emesis. Hemodynamically stable. Neurologic status is unchanged and the patient has significant neurologic impairment due to his Lewy body dementia. The white cell count 11, hemoglobin is 6.3 and a platelet count of 195, BUN is 21 with a creatinine of 0.7. Stable 2 L of oxygen by nasal cannula with a pulse ox of 98%. The patient is postop day #4 following an open cholecystectomy. The patient is seen today February 29, 2024 in follow-up on the regular medical floor. He is currently sitting up in bed. Awake and alert in no acute distress. Maintaining O2 saturation in the 90s on 2 L/min per nasal cannula. Nasogastric tube remains in place. He is being nourished with Glucerna at 60 MLS per hour. He has lactated Ringer's at 75 MLS per hour. BRADLEY drain remains in place. Abdominal dressing is dry and intact. Blood cultures were positive for Enterococcus faecium VRE. Follow-up blood cultures revealing no growth. White count 11.3. Hemoglobin 7.1. Platelets 240. Sodium 138. Potassium 3.6. Bicarb 24. BUN 20. Creatinine 0.79. Glucose 140. He remains on daptomycin and Zosyn. Chest x-ray reveals evidence of a right pleural effusion. Ultrasound today reveals only a 3.6 cm pocket. He is status post 3 units of packed red blood cells and 1 unit of platelets this admission. The patient is seen today March 01, 2024 in follow-up on the regular medical floor. He is currently resting in bed. He is maintaining O2 saturations in the 90s on 2 L/min per nasal cannula. His nasogastric tube had to be replaced as the patient had pulled it out earlier. Follow-up chest x-ray shows the nasogastric tube in place with needing advancement of 10 cm. There is a continued moderate right size pleural effusion with associated consolidation/atelectasis. Improved aeration of the right upper lung. Initial blood cultures were positive for Enterococcus faecium VRE. Follow-up blood cultures revealed no growth. He remains on antibiotics in the form of Zosyn and daptomycin. He is being nourished with Glucerna at 60 MLS per hour. White count 12.1. Hemoglobin 6.7. Platelets 258. Sodium 143. Potassium 3.9. Bicarb 24. BUN 19. Creatinine 0.9. Glucose 121. He is receiving a fourth unit of packed red blood cells this admission. The patient is seen today March 02, 2024 in follow-up on the regular medical floor. He is currently resting in bed. Arousable, weak. Maintaining good O2 saturations in the mid 90s on 2 L/min per nasal cannula. Remains slightly afebrile. Hemodynamically stable. He has pulled out another nasogastric tube. He is currently on daptomycin and Zosyn. Blood cultures were initially positive for Enterococcus faecium VRE. Follow-up blood cultures are revealing no growth. White count 12.8. Hemoglobin 8.8. Platelets 419. Sodium 138. Potassium 4.0. Bicarb 21. BUN 20. Creatinine 0.70. Glucose 131. The patient is seen today March 03, 2024 in follow-up on the regular medical floor. He is a bit more awake today. Answering some simple questions. He is maintaining good O2 saturations in the 90s on 2 L/min per nasal cannula. He has pulled out his nasogastric tubes on multiple occasions. He is currently out again. Remains on antibiotics in the form of daptomycin and Zosyn. Recent chest x-ray continues to show some right-sided pleural effusion. Ultrasound of the chest did not reveal any significant fluid. No plans for thoracentesis at this time. Follow-up blood cultures revealed no growth. Urine culture revealed no growth. White count 12.6. Hemoglobin 8.3. Platelets 421. Sodium 140. Potassium 3.9. Bicarb 22. BUN 19. Creatinine 0.72. The patient is seen today March 04, 2024 in follow-up on the regular medical floor. Postoperative day #9. He is currently resting comfortably in bed. Awake and alert in no acute distress. He is more vocal today compared to yesterday. He is maintaining good O2 saturations in the 90s on 2-1/2 L/min per nasal cannula. He was eating and drinking well at breakfast. He remains on D5W and half-normal saline at 50 MLS per hour. Antibiotics in the form of Zosyn and daptomycin. Heparin for DVT prophylaxis. Plavix remains on hold white count 11.3. Hemoglobin 9.2. Platelets 511. Sodium 139. Potassium 3.8. Bicarb 25. BUN 16. Creatinine 0.68. Glucose 117. The patient is seen today March 05 2024 in follow-up on the regular medical floor. Postoperative day #10. He is currently awake and alert in no acute distress. He is complaining of some surgical site pain. He denies any shortness of breath. He is more interactive again today. Follow-up blood cultures revealed no growth. Urine culture revealed no growth. White count 10.0. Hemoglobin 8.2. Platelets 555. Sodium 137. Potassium 3.4. Bicarb 25. BUN 13. Creatinine 0.67. Glucose 130. He remains on heparin for DVT prophylaxis. Antibiotics in the form of Zosyn and daptomycin. Dilaudid for pain control. The patient is seen today March 06, 2024 in follow-up on the regular medical floor. Postoperative day #11. He is resting comfortably in bed. Awake and alert in no acute distress. He is maintaining O2 saturations in the 90s on 3 L/min per nasal cannula. He has been afebrile. Hemodynamically stable. White count 10.5. Hemoglobin 8.2. Sodium 136. Potassium 3.7. Bicarb 24. BUN 13. Creatinine 0.63. He remains on daptomycin and Zosyn. Follow-up blood cultures revealed no growth. The patient is seen today March 07, 2024 in follow-up on the regular medical floor. Postoperative day #12. He is currently resting in bed. He is awake and alert. Yelling out for "Chhaya" very loudly. He is currently afebrile. Hemodynamically stable. Maintaining O2 saturations in the 90s on 3 L/min per nasal cannula. He is status post 4 units of packed red blood cells this admission. 1 unit of platelets. White count 14.2. Hemoglobin 8.6. Platelets 682. Sodium 135. Potassium 3.6. Bicarb 24. BUN 13. Creatinine 0.69. Glucose 111. He is currently on D5 and half-normal saline at 50 MLS per hour. Heparin for DVT prophylaxis. His blood cultures from 02/23/2024 were positive for Enterococcus faecium VRE. Antibiotics in the form of Zosyn and daptomycin. Follow-up blood cultures revealed no growth. The patient is seen today March 08, 2024 in follow-up on the regular medical floor. Postoperative day #13. He is currently resting comfortably in bed. Comfortable. In no acute distress. Maintaining good O2 saturations in the 90s on 3 L/min per nasal cannula. Chest x-ray does reveal increased right pleural effusion. He is status post 4 units of packed red blood cells this admission. Current hemoglobin 8.3. Platelets 686. White count 10.7. Sodium 137. Potassium 3.4. Bicarb 27. BUN 15. Creatinine 0.73. Glucose 131. He remains on daptomycin and Zosyn. Objective - Vital Signs Vital signs: Vital Signs Temp 97.7 F 03/08/24 07:18 Pulse 79 03/08/24 07:18 Resp 20 03/08/24 07:18 BP 114/76 03/08/24 07:18 Pulse Ox 86 L 03/08/24 10:54 FiO2 30 02/26/24 15:10 Intake & Output 03/07/24 03/08/24 03/08/24 18:59 06:59 18:59 Intake Total 880 200 Output Total 605 Balance 275 200 Weight 97 kg Intake: Oral 880 200 Output: Drainage 5 Right Abdomen 5 Urine 600 Other: Voiding Method Indwelling Catheter Diaper External Catheter # Voids 1 2 # Bowel Movements 1 ABP, PAP, CO, CI - Last Documented Arterial Blood Pressure 117/42 - Exam GENERAL EXAM: Alert, cognitively impaired, 68-year-old male, on 3 L nasal cannula, in no apparent distress. HEAD: Normocephalic. EYES: Normal reaction of pupils, equal size. NOSE: Place. Clear with pink turbinates. THROAT: No erythema or exudates. NECK: No masses, no JVD. CHEST: No chest wall deformity. LUNGS: Equal air entry with no crackles, wheeze, rhonchi or dullness. CVS: S1 and S2 normal with no audible murmur, regular rhythm. ABDOMEN: Surgical incision clean dry and well-approximated. BRADLEY drain remains in place. SPINE: No scoliosis or deformity SKIN: No rashes CENTRAL NERVOUS SYSTEM: Cognitively impaired, tone is normal in all 4 extremities. EXTREMITIES: There is no peripheral edema. No clubbing, no cyanosis. Peripheral pulses are intact. - Labs CBC & Chem 7: 03/08/24 08:55 03/08/24 08:55 Labs: Abnormal Lab Results - Last 24 Hours (Table) 03/07/24 03/07/24 03/08/24 Range/Units 16:51 23:10 05:58 WBC (3.8-10.6) k/uL RBC (4.30-5.90) m/uL Hgb (13.0-17.5) gm/dL Hct (39.0-53.0) % MCHC (31.0-37.0) g/dL Plt Count (150-450) k/uL Neutrophils # (1.3-7.7) k/uL Lymphocytes # (1.0-4.8) k/uL Potassium (3.5-5.1) mmol/L Chloride (98-107) mmol/L Glucose (74-99) mg/dL POC Glucose (mg/dL) 151 H 144 H 160 H (70-110) mg/dL Calcium (8.4-10.2) mg/dL Total Protein (6.3-8.2) g/dL Albumin (3.5-5.0) g/dL 03/08/24 03/08/24 03/08/24 Range/Units 08:55 08:55 12:23 WBC 10.7 H (3.8-10.6) k/uL RBC 2.98 L (4.30-5.90) m/uL Hgb 8.3 L (13.0-17.5) gm/dL Hct 27.0 L (39.0-53.0) % MCHC 30.6 L (31.0-37.0) g/dL Plt Count 686 H (150-450) k/uL Neutrophils # 9.0 H (1.3-7.7) k/uL Lymphocytes # 0.8 L (1.0-4.8) k/uL Potassium 3.4 L (3.5-5.1) mmol/L Chloride 109 H (98-107) mmol/L Glucose 131 H (74-99) mg/dL POC Glucose (mg/dL) 149 H (70-110) mg/dL Calcium 7.7 L (8.4-10.2) mg/dL Total Protein 4.8 L (6.3-8.2) g/dL Albumin 2.2 L (3.5-5.0) g/dL Assessment and Plan Assessment: Acute cholecystitis and the patient underwent an open cholecystectomy. The patient is currently postop day #12. Significant blood loss intraoperatively and the patient was resuscitated with fluids, colloids/albumin and received 4 units of packed RBC and one platelets. Current hemoglobin 8.3. No evidence of any acute bleeding and the output from the BRADLEY drain is minimal at this point in time. Acute enterococcal septicemia secondary to cholecystitis and the patient is currently on a combination of daptomycin and Zosyn. The patient has Enterococcus faecium VRE in the blood cultures Acute hypoxemic respiratory failure post gallbladder surgery. Patient was extubated to nasal cannula on 02/26/2024, currently on 2 L of oxygen by nasal cannula. Chest x-ray continues to show right-sided pleural effusion Previous history of CVA History of hypertension Hyperlipidemia Lewy body dementia with Parkinson disease at baseline with significant motor rigidity and cognitive impairment More awake and alert today. Tolerating a dysphagia 1 pured diet with one-to-one supervision Plan: The patient was seen and evaluated Chest x-ray, labs and medications reviewed Add ultrasound of the right chest regarding pleural effusion Evaluate for possible home oxygen Plan is for AFC at discharge I have personally seen and examined the patient, performed the documentation and the assessment and plan as written. Number of minutes spent on the visit: 10
--- NOTE | 2024-03-08 13:36 | P.PN ---
Subjective Progress Note Date: 03/08/24 CHIEF COMPLAINT: Acute cholecystitis HISTORY OF PRESENT ILLNESS: Patient is postop day #13 status post open cholecystectomy. Patient is lying in bed. Per nursing staff he ate about 50% of his food. No nausea or vomiting reported. Pain is controlled. Patient has had bowel movements. Patient initially was to be discharged yesterday. But then did have a fever spike of 101.4 during the night. WBC is down from 14.2- 10.7 Hgb stable at 8.3 platelets 686 potassium 3.4. Patient seen and examined with Dr. Thorne PHYSICAL EXAM: VITAL SIGNS: Reviewed. GENERAL: no acute distress. ABDOMEN: Soft. Nondistended. Incisional dressing soaked with blood. Medial aspect of incision with some minimal blood oozing. Patient reexamined with Dr. Thorne. He was able to express blood from the incision site likely due to a seroma. NEUROLOGIC: awake but lethargic ASSESSMENT: 1. Acute on chronic cholecystitis 2. VRE bacteremia 3. Coagulopathy 4. Seroma at incision site PLAN: -Would hold on discharge today due to fever. Recommend that patient be 24 hours without fever before discharge. -Continue to hold Plavix -Repeat CBC in a.m. -Continue chopped diet -Continue antibiotics per ID service -Continue to increase activity level -DVT prophylaxis subcu heparin Physician Cost Recovery Technician note has been reviewed by physician. Signing provider agrees with the documented findings, assessment, and plan of care. Objective - Vital Signs Vital signs: Vital Signs Temp 97.7 F 03/08/24 07:18 Pulse 79 03/08/24 07:18 Resp 20 03/08/24 07:18 BP 114/76 03/08/24 07:18 Pulse Ox 86 L 03/08/24 10:54 FiO2 30 02/26/24 15:10 Intake & Output 03/07/24 03/08/24 03/08/24 18:59 06:59 18:59 Intake Total 880 200 Output Total 605 Balance 275 200 Weight 97 kg Intake: Oral 880 200 Output: Drainage 5 Right Abdomen 5 Urine 600 Other: Voiding Method Indwelling Catheter Diaper External Catheter # Voids 1 2 # Bowel Movements 1 ABP, PAP, CO, CI - Last Documented Arterial Blood Pressure 117/42 - Labs CBC & Chem 7: 03/08/24 08:55 03/08/24 08:55 Labs: Abnormal Lab Results - Last 24 Hours (Table) 03/07/24 03/07/24 03/08/24 Range/Units 16:51 23:10 05:58 WBC (3.8-10.6) k/uL RBC (4.30-5.90) m/uL Hgb (13.0-17.5) gm/dL Hct (39.0-53.0) % MCHC (31.0-37.0) g/dL Plt Count (150-450) k/uL Neutrophils # (1.3-7.7) k/uL Lymphocytes # (1.0-4.8) k/uL Potassium (3.5-5.1) mmol/L Chloride (98-107) mmol/L Glucose (74-99) mg/dL POC Glucose (mg/dL) 151 H 144 H 160 H (70-110) mg/dL Calcium (8.4-10.2) mg/dL Total Protein (6.3-8.2) g/dL Albumin (3.5-5.0) g/dL 03/08/24 03/08/24 Range/Units 08:55 08:55 WBC 10.7 H (3.8-10.6) k/uL RBC 2.98 L (4.30-5.90) m/uL Hgb 8.3 L (13.0-17.5) gm/dL Hct 27.0 L (39.0-53.0) % MCHC 30.6 L (31.0-37.0) g/dL Plt Count 686 H (150-450) k/uL Neutrophils # 9.0 H (1.3-7.7) k/uL Lymphocytes # 0.8 L (1.0-4.8) k/uL Potassium 3.4 L (3.5-5.1) mmol/L Chloride 109 H (98-107) mmol/L Glucose 131 H (74-99) mg/dL POC Glucose (mg/dL) (70-110) mg/dL Calcium 7.7 L (8.4-10.2) mg/dL Total Protein 4.8 L (6.3-8.2) g/dL Albumin 2.2 L (3.5-5.0) g/dL
--- NOTE | 2024-03-08 14:38 | US ---
EXAMINATION TYPE: US chest DATE OF EXAM: 03/08/2024 Exam done portable COMPARISON: US 2023 CLINICAL INDICATION: Male, 68 years old with history of Right pleural effusion; TECHNIQUE: Targeted ultrasound of the posterior lower right hemithorax EXAM MEASUREMENTS: Right Pleural Effusion pocket size: 10.4 cm Right skin surface to fluid distance: 3.5 cm Right side marked for possible thoracentesis outside the dept. Pulmonologists are able to review the images in the patient?s EMR. IMPRESSIONS: As above
[2024-03-08 15:14] VITALS: BMI 29.0
--- NOTE | 2024-03-08 15:59 | P.PN ---
Subjective Progress Note Date: 03/08/24 Principal diagnosis: Reason for follow-up is acute cholecystitis and bacteremia Patient is a 68-year-old male with a past medical history significant for diabetes mellitus hypertension sleep apnea CVA TIA Parkinson disease patient was brought into the hospital initially for chest pain has been diagnosed with acute cholecystitis and also have VRE bacteremia. Patient is status post laparoscopic cholecystectomy on 02/24/2024 subsequent requiring admission to the ICU on the ventilator. On today's evaluation that is 03/08/2024,the patient did have a low-grade fever of 100.3 at 4 AM the patient has been afebrile since then patient is currently breathing comfortably on 4 L nasal cannula oxygen slightly lethargic cannot provide any history no vomiting or diarrhea reported by nursing staff. Patient white count is 10.7 creatinine 0.74 did have a chest x-ray increasing large right sided effusion Objective - Vital Signs Vital signs: Vital Signs Temp 98.5 F 03/08/24 13:12 Pulse 83 03/08/24 13:12 Resp 24 03/08/24 13:12 BP 125/67 03/08/24 13:12 Pulse Ox 90 L 03/08/24 13:12 FiO2 30 02/26/24 15:10 Intake & Output 03/07/24 03/08/24 03/08/24 18:59 06:59 18:59 Intake Total 880 200 Output Total 605 Balance 275 200 Weight 97 kg 97 kg Intake: Oral 880 200 Output: Drainage 5 Right Abdomen 5 Urine 600 Other: Voiding Method Indwelling Catheter Diaper External Catheter # Voids 1 2 # Bowel Movements 1 ABP, PAP, CO, CI - Last Documented Arterial Blood Pressure 117/42 - Exam GENERAL DESCRIPTION: An elderly male lying in bed in no distress RESPIRATORY SYSTEM: Unlabored breathing , decreased breath sounds at bases HEART: S1 S2 regular rate and rhythm , ABDOMEN: Soft , no tenderness EXTREMITIES: No edema feet - Labs CBC & Chem 7: 03/08/24 08:55 03/08/24 08:55 Labs: Abnormal Lab Results - Last 24 Hours (Table) 03/07/24 03/07/24 03/08/24 Range/Units 16:51 23:10 05:58 WBC (3.8-10.6) k/uL RBC (4.30-5.90) m/uL Hgb (13.0-17.5) gm/dL Hct (39.0-53.0) % MCHC (31.0-37.0) g/dL Plt Count (150-450) k/uL Neutrophils # (1.3-7.7) k/uL Lymphocytes # (1.0-4.8) k/uL Potassium (3.5-5.1) mmol/L Chloride (98-107) mmol/L Glucose (74-99) mg/dL POC Glucose (mg/dL) 151 H 144 H 160 H (70-110) mg/dL Calcium (8.4-10.2) mg/dL Total Protein (6.3-8.2) g/dL Albumin (3.5-5.0) g/dL 03/08/24 03/08/24 03/08/24 Range/Units 08:55 08:55 12:23 WBC 10.7 H (3.8-10.6) k/uL RBC 2.98 L (4.30-5.90) m/uL Hgb 8.3 L (13.0-17.5) gm/dL Hct 27.0 L (39.0-53.0) % MCHC 30.6 L (31.0-37.0) g/dL Plt Count 686 H (150-450) k/uL Neutrophils # 9.0 H (1.3-7.7) k/uL Lymphocytes # 0.8 L (1.0-4.8) k/uL Potassium 3.4 L (3.5-5.1) mmol/L Chloride 109 H (98-107) mmol/L Glucose 131 H (74-99) mg/dL POC Glucose (mg/dL) 149 H (70-110) mg/dL Calcium 7.7 L (8.4-10.2) mg/dL Total Protein 4.8 L (6.3-8.2) g/dL Albumin 2.2 L (3.5-5.0) g/dL Assessment and Plan (1) Sepsis Current Visit: Yes Status: Acute Code(s): A41.9 - SEPSIS, UNSPECIFIED ORGANISM SNOMED Code(s): 66065711 (2) Cholecystitis Current Visit: Yes Status: Acute Code(s): K81.9 - CHOLECYSTITIS, UNSPECIFIED SNOMED Code(s): 43800502 (3) VRE bacteremia Current Visit: Yes Status: Acute Code(s): R78.81 - BACTEREMIA; B95.2 - ENTEROCOCCUS THE CAUSE OF DISEASES CLASSIFIED ELSEWHERE; Z16.21 - RESISTANCE TO VANCOMYCIN SNOMED Code(s): 7137133767 (4) Allergy to cephalosporin Current Visit: Yes Status: Acute Code(s): Z88.1 - ALLERGY STATUS TO OTHER ANTIBIOTIC AGENTS SNOMED Code(s): 259041441 Plan: 1patient presented hospital with sepsis in this patient who did have fever elevated white count source is acute cholecystitis usually associated with a gram-negative bacteria and also secondary to Enterococcus 2-VRE bacteremia source could be acute gastritis 3-blood culture has been repeated and so far negative 4-patient did have CT abdominal pelvis which mention fluid collection questionably postop versus hematoma and may have responsible for his low-grade fever as repeat cultures so far negative 5-patient noticed to have a large effusion on the right side pulmonary is following the patient, patient to continue with the Zosyn and daptomycin to finish 2-week course of therapy Dictation was produced using [employer] dictation software. please excuse any grammatical, word or spelling errors. Time with Patient: Less than 30
--- NOTE | 2024-03-08 17:21 | P.PN ---
Subjective Progress Note Date: 03/08/24 Subjective: Patient is seen and examined bedside. Patient spiked a fever overnight. Was satting at 86% on room air placed back on nasal cannula 2 L. With daughter on phone to determine baseline mental status. Based off conversation patient is at his baseline. Pertinent positives and negatives as discussed above, a complete review of systems was performed and all other systems are negative. Vitals: Signs Reviewed Physical Exam: General: nontoxic, no distress, appears at stated age Derm: warm, dry, intact Head: atraumatic, normocephalic, symmetric Eyes: EOMI, no lid lag, anicteric sclera Mouth: no lip lesion, mucus membranes moist Cardiovascular: S1 S2 reg, no murmur, rubs, or gallops Lungs: CTA bilateral, no rhonchi, no rales, no accessory muscle use, supplemental oxygen Abdominal: soft, non-tender to palpataion, no appreciable organomegaly, BRADLEY drain in Extremities: no gross muscle atrophy, no edema, no contractures Neuro: CNII-XII grossly intact, gait normal Psych: AAOx1, drowsy, confused, cooperative Data Received Today: Pertinent Labs: WBC 10.7 w/ neutrophilic predominance, Hgb 8.3, MCV 90.8, K 3.4, chloride 109, glucose range between 1 39-1 60, total protein 4.8, albumin 2.2, C OVID-negative Imaging: Chest x-ray: Increasing large right-sided pleural effusion on independent interpretation. Assessment and Plan: Fever of unknown etiology. Acute hypoxic respiratory failure due to right pleural effusion: -Possibly Secondary to worsening right pleural effusion leading to atelectasis COVID test ordered. Patient is COVID-negative Chest x-ray on independent interpretation shows increasing large right-sided pleural effusion. -Pulmonology note reviewed, repeat chest ultrasound, may need thoracentesis -Wean oxygen Chest ultrasound, right pleural effusion pocket size: 10.4 cm. It rates in service to fluid distance: 3.5 cm VRE bacteremia likely due to acute cholecystitis s/p cholecystectomy Surgery note reviewed, recommending monitoring for another 24 hours given fevers Patient currently on IV daptomycin 500 mg every 24 hours (D12), IV Zosyn 3.375 g every 8 hours (D12). Repeat blood cultures negative so far. ID note reviewed, finish 2-week course of therapy with IV daptomycin and Zosyn on discharge. PICC line in place. Acute encephalopathy, resolved Patient has a history of Lewy body dementia, Parkinson disease Spoke with family to assess mental baseline. Based off conversation patient is at baseline. Discontinued IV Dilaudid Moderate to severe protein calorie malnutrition -Currently on D5 normal saline at 50 cc an hour -Encourage oral intake -Ensure twice daily with meals Acute blood loss anemia, stable Intraoperatively. Status post 4 units of PRBCs, and 1 unit of platelets. Monitor CBC. Transfuse if Hg < 7. Insulin-dependent diabetes Sliding scale insulin, every 6 hours, Monitor for hypoglycemia. Hypokalemia -20 mEq IV potassium given today -Repeat BMP, magnesium tomorrow Chronic Lewy body dementia, Parkinson's disease Depression History of CVA History of hypertension Dyslipidemia Obstructive sleep apnea Resolved Hemorrhagic shock Ventilator dependent respiratory failure F: N/A E: Replete as needed N: Regular diet A: Follow-up DVT ppx: SCD Code status: Full Anticipated discharge place: AFC Anticipated discharge time: pending clinical course I have seen and evaluated the patient today. Discussed with the resident and agree with the residents finding and plan as documented in the resident's note. Changes highlighted in blue font. Prognosis guarded. needs close monitoring. Objective - Vital Signs Vital signs: Vital Signs Temp 98.5 F 03/08/24 13:12 Pulse 83 03/08/24 13:12 Resp 24 03/08/24 13:12 BP 125/67 03/08/24 13:12 Pulse Ox 90 L 03/08/24 13:12 FiO2 30 02/26/24 15:10 Intake & Output 03/07/24 03/08/24 03/08/24 18:59 06:59 18:59 Intake Total 880 200 Output Total 605 Balance 275 200 Weight 97 kg 97 kg Intake: Oral 880 200 Output: Drainage 5 Right Abdomen 5 Urine 600 Other: Voiding Method Indwelling Catheter Diaper External Catheter # Voids 1 2 # Bowel Movements 1 ABP, PAP, CO, CI - Last Documented Arterial Blood Pressure 117/42 - Labs CBC & Chem 7: 03/08/24 08:55 03/08/24 08:55 Labs: Abnormal Lab Results - Last 24 Hours (Table) 03/07/24 03/07/24 03/08/24 Range/Units 16:51 23:10 05:58 WBC (3.8-10.6) k/uL RBC (4.30-5.90) m/uL Hgb (13.0-17.5) gm/dL Hct (39.0-53.0) % MCHC (31.0-37.0) g/dL Plt Count (150-450) k/uL Neutrophils # (1.3-7.7) k/uL Lymphocytes # (1.0-4.8) k/uL Potassium (3.5-5.1) mmol/L Chloride (98-107) mmol/L Glucose (74-99) mg/dL POC Glucose (mg/dL) 151 H 144 H 160 H (70-110) mg/dL Calcium (8.4-10.2) mg/dL Total Protein (6.3-8.2) g/dL Albumin (3.5-5.0) g/dL 03/08/24 03/08/24 03/08/24 Range/Units 08:55 08:55 12:23 WBC 10.7 H (3.8-10.6) k/uL RBC 2.98 L (4.30-5.90) m/uL Hgb 8.3 L (13.0-17.5) gm/dL Hct 27.0 L (39.0-53.0) % MCHC 30.6 L (31.0-37.0) g/dL Plt Count 686 H (150-450) k/uL Neutrophils # 9.0 H (1.3-7.7) k/uL Lymphocytes # 0.8 L (1.0-4.8) k/uL Potassium 3.4 L (3.5-5.1) mmol/L Chloride 109 H (98-107) mmol/L Glucose 131 H (74-99) mg/dL POC Glucose (mg/dL) 149 H (70-110) mg/dL Calcium 7.7 L (8.4-10.2) mg/dL Total Protein 4.8 L (6.3-8.2) g/dL Albumin 2.2 L (3.5-5.0) g/dL
[2024-03-08 18:35] LABS: Glucose,Whole Blood 138 mg/dL (70-110)
[2024-03-08 23:32] LABS: Glucose,Whole Blood 138 mg/dL (70-110)
[2024-03-09 05:36] LABS: Glucose,Whole Blood 156 mg/dL (70-110)
[2024-03-09 06:46] LABS: Basophils % (A) 0 %; Eosinophils # (A) 0.2 k/uL (0-0.7); Eosinophils % (A) 2 %; HGB 8.6 gm/dL (13.0-17.5); Hypochromasia Moderate; Lymphocytes # (A) 0.9 k/uL (1.0-4.8); Lymphocytes % (A) 8 %; MCH 28.1 pg (25.0-35.0); MCHC 31.9 g/dL (31.0-37.0); MCV 87.9 fL (80.0-100.0); Mean Platelet Volume 9.1; Monocytes # (A) 0.8 k/uL (0-1.0); Monocytes % (A) 7 %; Neutrophils # (A) 8.9 k/uL (1.3-7.7); Neutrophils % (A) 81 %; Platelet Count 602 k/uL (150-450); Poikilocytosis Slight; RBC 3.07 m/uL (4.30-5.90); RDW 15.1 % (11.5-15.5)
[2024-03-09 07:26] LABS: ALT 22 U/L (4-49); AST 27 U/L (17-59); African American GFR (CKD) >90 (>60 ml/min/1.73 sqM); Albumin 2.2 g/dL (3.5-5.0); Albumin/Globulin Ratio 0.8; Alkaline Phosphatase 84 U/L (38-126); Anion Gap 3 mmol/L; Blood Urea Nitrogen 13 mg/dL (9-20); Calcium 7.7 mg/dL (8.4-10.2); Carbon Dioxide 24 mmol/L (22-30); Chloride 109 mmol/L (98-107); Globulin 2.7 g/dL; Glucose 112 mg/dL (74-99); Non-African American GFR(CKD) >90 (>60 ml/min/1.73 sqM); Potassium 3.7 mmol/L (3.5-5.1); Sodium 136 mmol/L (137-145); Total Protein 4.9 g/dL (6.3-8.2)
[2024-03-09 11:55] LABS: Glucose,Whole Blood 130 mg/dL (70-110)
--- NOTE | 2024-03-09 12:30 | P.PN ---
Subjective Progress Note Date: 03/09/24 Principal diagnosis: Reason for follow-up is acute cholecystitis and bacteremia Patient is a 68-year-old male with a past medical history significant for diabetes mellitus hypertension sleep apnea CVA TIA Parkinson disease patient was brought into the hospital initially for chest pain has been diagnosed with acute cholecystitis and also have VRE bacteremia. Patient is status post laparoscopic cholecystectomy on 02/24/2024 subsequent requiring admission to the ICU on the ventilator. On today's evaluation that is 03/09/2024, the patient continues to be afebrile, the patient is more awake alert breathing comfortably on 3 L current oxygen patient denies having any chest pain occasional cough complain of some abdominal discomfort no vomiting or diarrhea has been reported. Patient white count is 11,000, creatinine 0.70 Objective - Vital Signs Vital signs: Vital Signs Temp 98.3 F 03/09/24 07:23 Pulse 75 03/09/24 07:23 Resp 17 03/09/24 07:23 BP 130/72 03/09/24 07:23 Pulse Ox 96 03/09/24 07:23 FiO2 30 02/26/24 15:10 Intake & Output 03/08/24 03/09/24 03/09/24 18:59 06:59 18:59 Intake Total 400 700 Output Total 625 Balance 400 75 Weight 97 kg 97.5 kg Intake: Intake, IV Titration 700 Amount Dextrose 5%-0.9% NaCl 1, 600 000 ml @ 50 mls/hr IV . Q20H BETTE Rx#:[id number] Piperacillin-Tazobactam 3 100 .375 gm In Sodium Chloride 0.9% 100 ml @ 25 mls/hr IVPB Q8HR BETTE Rx# :[id number] Oral 400 Output: Urine 625 Other: Voiding Method External Catheter External Catheter # Bowel Movements 1 ABP, PAP, CO, CI - Last Documented Arterial Blood Pressure 117/42 - Exam GENERAL DESCRIPTION: An elderly male lying in bed in no distress RESPIRATORY SYSTEM: Unlabored breathing , decreased breath sounds at bases HEART: S1 S2 regular rate and rhythm , ABDOMEN: Soft , no tenderness EXTREMITIES: No edema feet - Labs CBC & Chem 7: 03/09/24 04:36 03/09/24 04:36 Labs: Abnormal Lab Results - Last 24 Hours (Table) 03/08/24 03/08/24 03/09/24 Range/Units 18:33 23:31 04:36 WBC 11.0 H (3.8-10.6) k/uL RBC 3.07 L (4.30-5.90) m/uL Hgb 8.6 L (13.0-17.5) gm/dL Hct 27.0 L (39.0-53.0) % Plt Count 602 H (150-450) k/uL Neutrophils # 8.9 H (1.3-7.7) k/uL Lymphocytes # 0.9 L (1.0-4.8) k/uL Sodium (137-145) mmol/L Chloride (98-107) mmol/L Glucose (74-99) mg/dL POC Glucose (mg/dL) 138 H 138 H (70-110) mg/dL Calcium (8.4-10.2) mg/dL Total Protein (6.3-8.2) g/dL Albumin (3.5-5.0) g/dL 03/09/24 03/09/24 03/09/24 Range/Units 04:36 05:34 11:53 WBC (3.8-10.6) k/uL RBC (4.30-5.90) m/uL Hgb (13.0-17.5) gm/dL Hct (39.0-53.0) % Plt Count (150-450) k/uL Neutrophils # (1.3-7.7) k/uL Lymphocytes # (1.0-4.8) k/uL Sodium 136 L (137-145) mmol/L Chloride 109 H (98-107) mmol/L Glucose 112 H (74-99) mg/dL POC Glucose (mg/dL) 156 H 130 H (70-110) mg/dL Calcium 7.7 L (8.4-10.2) mg/dL Total Protein 4.9 L (6.3-8.2) g/dL Albumin 2.2 L (3.5-5.0) g/dL Assessment and Plan (1) Sepsis Current Visit: Yes Status: Acute Code(s): A41.9 - SEPSIS, UNSPECIFIED ORGANISM SNOMED Code(s): 38328021 (2) Cholecystitis Current Visit: Yes Status: Acute Code(s): K81.9 - CHOLECYSTITIS, UNSPECIFIED SNOMED Code(s): 41020138 (3) VRE bacteremia Current Visit: Yes Status: Acute Code(s): R78.81 - BACTEREMIA; B95.2 - ENTEROCOCCUS THE CAUSE OF DISEASES CLASSIFIED ELSEWHERE; Z16.21 - RESISTANCE TO VANCOMYCIN SNOMED Code(s): 5479596124 (4) Allergy to cephalosporin Current Visit: Yes Status: Acute Code(s): Z88.1 - ALLERGY STATUS TO OTHER ANTIBIOTIC AGENTS SNOMED Code(s): 988383823 Plan: 1patient presented hospital with sepsis in this patient who did have fever elevated white count source is acute cholecystitis usually associated with a gram-negative bacteria and also secondary to Enterococcus 2-VRE bacteremia source could be acute gastritis 3-blood culture has been repeated and so far negative 4-patient did have CT abdominal pelvis which mention fluid collection questionably postop versus hematoma and may have responsible for his low-grade fever as repeat cultures so far negative 5-patient noticed to have a large effusion on the right side pulmonary is following the patient, 6- patient to continue with the Zosyn and daptomycin and monitor his clinical course closely Dictation was produced using [employer] dictation software. please excuse any grammatical, word or spelling errors. Time with Patient: Less than 30
--- NOTE | 2024-03-09 13:44 | P.PN ---
Subjective Progress Note Date: 03/09/24 CHIEF COMPLAINT: Acute cholecystitis HISTORY OF PRESENT ILLNESS: Patient is postop day #14 status post open cholecystectomy. Patient is more alert today. He did have a bowel movement yesterday and a smear of a bowel movement today. Appetite is a little decreased. But denies any nausea or vomiting. No further fevers. WBC did go up from 10-11. Hemoglobin stable at 8.6 Patient seen and examined with Dr. Thorne PHYSICAL EXAM: VITAL SIGNS: Reviewed. GENERAL: no acute distress. ABDOMEN: Soft. Nondistended. Incision site minimal old blood draining at the medial aspect of the incision. NEUROLOGIC: More alert ASSESSMENT: 1. Acute on chronic cholecystitis 2. VRE bacteremia 3. Coagulopathy 4. Seroma at incision site PLAN: -Patient can be discharged from surgical standpoint -Continue antibiotics per ID service -Continue to increase activity level -DVT prophylaxis subcu heparin Physician Charge Authorizer note has been reviewed by physician. Signing provider agrees with the documented findings, assessment, and plan of care. Objective - Vital Signs Vital signs: Vital Signs Temp 98.3 F 03/09/24 07:23 Pulse 75 03/09/24 07:23 Resp 17 03/09/24 07:23 BP 130/72 03/09/24 07:23 Pulse Ox 96 03/09/24 07:23 FiO2 30 02/26/24 15:10 Intake & Output 03/08/24 03/09/24 03/09/24 18:59 06:59 18:59 Intake Total 400 700 Output Total 625 Balance 400 75 Weight 97 kg 97.5 kg Intake: Intake, IV Titration 700 Amount Dextrose 5%-0.9% NaCl 1, 600 000 ml @ 50 mls/hr IV . Q20H BETTE Rx#:[id number] Piperacillin-Tazobactam 3 100 .375 gm In Sodium Chloride 0.9% 100 ml @ 25 mls/hr IVPB Q8HR BETTE Rx# :[id number] Oral 400 Output: Urine 625 Other: Voiding Method External Catheter External Catheter # Bowel Movements 1 ABP, PAP, CO, CI - Last Documented Arterial Blood Pressure 117/42 - Labs CBC & Chem 7: 03/09/24 04:36 03/09/24 04:36 Labs: Abnormal Lab Results - Last 24 Hours (Table) 03/08/24 03/08/24 03/09/24 Range/Units 18:33 23:31 04:36 WBC 11.0 H (3.8-10.6) k/uL RBC 3.07 L (4.30-5.90) m/uL Hgb 8.6 L (13.0-17.5) gm/dL Hct 27.0 L (39.0-53.0) % Plt Count 602 H (150-450) k/uL Neutrophils # 8.9 H (1.3-7.7) k/uL Lymphocytes # 0.9 L (1.0-4.8) k/uL Sodium (137-145) mmol/L Chloride (98-107) mmol/L Glucose (74-99) mg/dL POC Glucose (mg/dL) 138 H 138 H (70-110) mg/dL Calcium (8.4-10.2) mg/dL Total Protein (6.3-8.2) g/dL Albumin (3.5-5.0) g/dL 03/09/24 03/09/24 03/09/24 Range/Units 04:36 05:34 11:53 WBC (3.8-10.6) k/uL RBC (4.30-5.90) m/uL Hgb (13.0-17.5) gm/dL Hct (39.0-53.0) % Plt Count (150-450) k/uL Neutrophils # (1.3-7.7) k/uL Lymphocytes # (1.0-4.8) k/uL Sodium 136 L (137-145) mmol/L Chloride 109 H (98-107) mmol/L Glucose 112 H (74-99) mg/dL POC Glucose (mg/dL) 156 H 130 H (70-110) mg/dL Calcium 7.7 L (8.4-10.2) mg/dL Total Protein 4.9 L (6.3-8.2) g/dL Albumin 2.2 L (3.5-5.0) g/dL
[2024-03-09 14:22] VITALS: BP 144/81; PULSE 81; RESP 20; TEMP 98.1
--- NOTE | 2024-03-09 15:18 | P.PN ---
Subjective Progress Note Date: 03/09/24 This is a 68-year-old male patient who is currently intubated on mechanical ventilator. The patient was taken to the operating room for acute cholecystitis and bacteremia. The patient was found to have severe acute cholecystitis and the patient was initially supposed to have a laparoscopic cholecystectomy and this was converted to an open procedure. The patient was found to have significant adhesions. The gallbladder was taken out. The patient encountered bleeding and estimated blood loss was in the order of 1000 cc. The patient accordingly was given a total of 1.5 L of crystalloid in the operating room, 1 unit of packed RBC, a total of 1000 cc of albumin. Output from the BRADLEY drain is minimal at this point in time. The patient is currently on propofol running at 15 mcg/kg/min. He is on assist-control mode of mechanical ventilation at a rate of 16, tidal volume of 400, FiO2 40% with a PEEP of 5. The blood pressure was soft in the ICU and the patient was given additional liter of lactated Ringer. Blood gas showed a pH of 7.38 with a pCO2 of 40 and pO2 of more than 420. FiO2 was dropped accordingly. Chest x-ray shows borderline heart size and some atelectatic change in the left midlung. The patient's blood culture showing Enterococcus faecium and based on that the patient was kept on a combination of Zosyn and daptomycin. No pressors for now. Note that the patient is known to have previous history of CVA. He has insulin-dependent diabetes mellitus and hypertension hyperlipidemia and Lewy body dementia and Parkinson's disease. He has also history of obstructive sleep apnea. His gallbladder ultrasound that was done at the time of admission showed acute cholecystitis with distended gallbladder wall thickening and the CT of the chest that was done on 02/23/2024 showed no evidence of any pulmonary embolism. The lungs were essentially clear from any acute pulmonary filtration. On 02/25/2024, the patient remains intubated on the mechanical ventilator. No significant events overnight. The patient is postop day #1 following an open cholecystectomy. Output from the BRADLEY drain is minimal at this point in time. The patient is currently on propofol which is running at 20 mcg/kg/min. He remains on assist-control mode of mechanical ventilation at rate of 60, tidal volume of 450, FiO2 of 30% with a PEEP of 5. Blood gas showed a pH of 7.41 with a pCO2 of 42 and pO2 of 155. The patient was given a total of 2 units of packed RBC postop. He was also given a unit of platelets. No active bleeding. Remains on lactated Ringer at rate of 125 cc an hour. Remains NPO. No pressors for now and the norepinephrine has been discontinued. The white cell count of 12.2 with a hemoglobin 9.8 and a platelet count of 201. BUN is 22 with a creatinine 0.9 and his sodium level is 136. AST is 196, ALT is 139 with an alkaline phosphatase of 115. Cultures positive for Enterococcus faecium and the patient remains on a combination of Zosyn and daptomycin. Afebrile. He modynamically stable at this point in time. 02/26/2024, the patient is quite lethargic, sleepy, rigid, slightly responsive to verbal stimulation. He grimaces to painful stimulation. To my understanding, the patient has significant Lewy body dementia with chronic rigidity and cognitive impairment. The patient remains on the mechanical ventilator. Off sedation. Currently on assist-control mode with rate of 16, tidal volume of 400 and FiO2 of 30% with a PEEP of 5. The blood gas from today shows a pH of 7.48 with a pCO2 of 38 and pO2 of 87. Chest x-ray from today shows patchy opacity in the right lung base/atelectasis. Orogastric and orotracheal tube are both in place. The patient is hemodynamically stable. The patient is afebrile. The patient on lactated Ringer at rate of 125 cc an hour. BRADLEY drain output is serous. The LFTs are essentially within normal limits. Sodium is at 136, BUN is 20 with a creatinine of 0.8 and a potassium levels of 3.8. The white cell count 11.2 with a hemoglobin 8.4 and a platelet count of 146. Remains on Zosyn and daptomycin. No other significant events overnight. 02/27/2024, the patient is extubated and the patient is currently on 2 L of oxygen by nasal cannula. Significant neurologic impairment and cognitive impairment and rigidity. Does not communicate. Does not follow any simple commands. Unable to swallow. Respiratory status is stable. Hemodynamically stable. Repeat chest x-ray was done today and the patient was found to have some right- sided atelectasis and small right-sided pleural effusion. Abdomen is nondistended. Surgical wound site is dry clean and intact. BRADLEY drain is in place. Output overnight was elevated and the patient produced approximately 490 cc over the past 8 hours and currently the output is down to 5 to 10 cc an hour. Output is somewhat bloody/serosanguineous. Remains on lactated Ringer at 125 cc an hour. No pressors. Remains on Zosyn and vancomycin. Hemoglobin is down to 7.3 with a white cell count of 13.2. Electrolytes are all within normal limits. Afebrile. 02/28/2024, the patient is being seen for a follow-up. The patient got transferred out of the intensive care unit yesterday after being extubated. For now, the patient has an NG tube placed and the patient is sleeping Glucerna for enteral feeding and nutritional support. The abdominal scar is dry clean and intact. BRADLEY drain is in place and the output is in the order of 10 cc an hour. Hemoglobin has dropped down to 6.3 and the patient will receive another unit of packed RBC. No evidence of any GI bleeding at this point in time. No coffee- ground emesis. Hemodynamically stable. Neurologic status is unchanged and the patient has significant neurologic impairment due to his Lewy body dementia. The white cell count 11, hemoglobin is 6.3 and a platelet count of 195, BUN is 21 with a creatinine of 0.7. Stable 2 L of oxygen by nasal cannula with a pulse ox of 98%. The patient is postop day #4 following an open cholecystectomy. The patient is seen today February 29, 2024 in follow-up on the regular medical floor. He is currently sitting up in bed. Awake and alert in no acute distress. Maintaining O2 saturation in the 90s on 2 L/min per nasal cannula. Nasogastric tube remains in place. He is being nourished with Glucerna at 60 MLS per hour. He has lactated Ringer's at 75 MLS per hour. BRADLEY drain remains in place. Abdominal dressing is dry and intact. Blood cultures were positive for Enterococcus faecium VRE. Follow-up blood cultures revealing no growth. White count 11.3. Hemoglobin 7.1. Platelets 240. Sodium 138. Potassium 3.6. Bicarb 24. BUN 20. Creatinine 0.79. Glucose 140. He remains on daptomycin and Zosyn. Chest x-ray reveals evidence of a right pleural effusion. Ultrasound today reveals only a 3.6 cm pocket. He is status post 3 units of packed red blood cells and 1 unit of platelets this admission. The patient is seen today March 01, 2024 in follow-up on the regular medical floor. He is currently resting in bed. He is maintaining O2 saturations in the 90s on 2 L/min per nasal cannula. His nasogastric tube had to be replaced as the patient had pulled it out earlier. Follow-up chest x-ray shows the nasogastric tube in place with needing advancement of 10 cm. There is a continued moderate right size pleural effusion with associated consolidation/atelectasis. Improved aeration of the right upper lung. Initial blood cultures were positive for Enterococcus faecium VRE. Follow-up blood cultures revealed no growth. He remains on antibiotics in the form of Zosyn and daptomycin. He is being nourished with Glucerna at 60 MLS per hour. White count 12.1. Hemoglobin 6.7. Platelets 258. Sodium 143. Potassium 3.9. Bicarb 24. BUN 19. Creatinine 0.9. Glucose 121. He is receiving a fourth unit of packed red blood cells this admission. The patient is seen today March 02, 2024 in follow-up on the regular medical floor. He is currently resting in bed. Arousable, weak. Maintaining good O2 saturations in the mid 90s on 2 L/min per nasal cannula. Remains slightly afebrile. Hemodynamically stable. He has pulled out another nasogastric tube. He is currently on daptomycin and Zosyn. Blood cultures were initially positive for Enterococcus faecium VRE. Follow-up blood cultures are revealing no growth. White count 12.8. Hemoglobin 8.8. Platelets 419. Sodium 138. Potassium 4.0. Bicarb 21. BUN 20. Creatinine 0.70. Glucose 131. The patient is seen today March 03, 2024 in follow-up on the regular medical floor. He is a bit more awake today. Answering some simple questions. He is maintaining good O2 saturations in the 90s on 2 L/min per nasal cannula. He has pulled out his nasogastric tubes on multiple occasions. He is currently out again. Remains on antibiotics in the form of daptomycin and Zosyn. Recent chest x-ray continues to show some right-sided pleural effusion. Ultrasound of the chest did not reveal any significant fluid. No plans for thoracentesis at this time. Follow-up blood cultures revealed no growth. Urine culture revealed no growth. White count 12.6. Hemoglobin 8.3. Platelets 421. Sodium 140. Potassium 3.9. Bicarb 22. BUN 19. Creatinine 0.72. The patient is seen today March 04, 2024 in follow-up on the regular medical floor. Postoperative day #9. He is currently resting comfortably in bed. Awake and alert in no acute distress. He is more vocal today compared to yesterday. He is maintaining good O2 saturations in the 90s on 2-1/2 L/min per nasal cannula. He was eating and drinking well at breakfast. He remains on D5W and half-normal saline at 50 MLS per hour. Antibiotics in the form of Zosyn and daptomycin. Heparin for DVT prophylaxis. Plavix remains on hold white count 11.3. Hemoglobin 9.2. Platelets 511. Sodium 139. Potassium 3.8. Bicarb 25. BUN 16. Creatinine 0.68. Glucose 117. The patient is seen today March 05 2024 in follow-up on the regular medical floor. Postoperative day #10. He is currently awake and alert in no acute distress. He is complaining of some surgical site pain. He denies any shortness of breath. He is more interactive again today. Follow-up blood cultures revealed no growth. Urine culture revealed no growth. White count 10.0. Hemoglobin 8.2. Platelets 555. Sodium 137. Potassium 3.4. Bicarb 25. BUN 13. Creatinine 0.67. Glucose 130. He remains on heparin for DVT prophylaxis. Antibiotics in the form of Zosyn and daptomycin. Dilaudid for pain control. The patient is seen today March 06, 2024 in follow-up on the regular medical floor. Postoperative day #11. He is resting comfortably in bed. Awake and alert in no acute distress. He is maintaining O2 saturations in the 90s on 3 L/min per nasal cannula. He has been afebrile. Hemodynamically stable. White count 10.5. Hemoglobin 8.2. Sodium 136. Potassium 3.7. Bicarb 24. BUN 13. Creatinine 0.63. He remains on daptomycin and Zosyn. Follow-up blood cultures revealed no growth. The patient is seen today March 07, 2024 in follow-up on the regular medical floor. Postoperative day #12. He is currently resting in bed. He is awake and alert. Yelling out for "Chhaya" very loudly. He is currently afebrile. Hemodynamically stable. Maintaining O2 saturations in the 90s on 3 L/min per nasal cannula. He is status post 4 units of packed red blood cells this admission. 1 unit of platelets. White count 14.2. Hemoglobin 8.6. Platelets 682. Sodium 135. Potassium 3.6. Bicarb 24. BUN 13. Creatinine 0.69. Glucose 111. He is currently on D5 and half-normal saline at 50 MLS per hour. Heparin for DVT prophylaxis. His blood cultures from 02/23/2024 were positive for Enterococcus faecium VRE. Antibiotics in the form of Zosyn and daptomycin. Follow-up blood cultures revealed no growth. The patient is seen today March 08, 2024 in follow-up on the regular medical floor. Postoperative day #13. He is currently resting comfortably in bed. Comfortable. In no acute distress. Maintaining good O2 saturations in the 90s on 3 L/min per nasal cannula. Chest x-ray does reveal increased right pleural effusion. He is status post 4 units of packed red blood cells this admission. Current hemoglobin 8.3. Platelets 686. White count 10.7. Sodium 137. Potassium 3.4. Bicarb 27. BUN 15. Creatinine 0.73. Glucose 131. He remains on daptomycin and Zosyn. The patient is seen today March 09, 2024 in follow-up on the regular medical floor. Postoperative day #14. He is currently resting quietly in bed. Arousable. States he is doing "fair". He is status post 4 units of packed red blood cells this admission. Current hemoglobin 8.6. Platelets 602. White count 11. Sodium 136. Potassium 3.7. Bicarb 24. BUN 13. Creatinine 0.70. Glucose 112. He remains on daptomycin and Zosyn. Heparin for DVT prophylaxis. Ultra sound of the chest did reveal a 10 cm pocket on the right however the patient's ability to obtain a stable position or cooperate for a thoracentesis would be too unsafe at this time. Objective - Vital Signs Vital signs: Vital Signs Temp 98.1 F 03/09/24 13:24 Pulse 81 03/09/24 13:24 Resp 20 03/09/24 13:24 BP 144/81 03/09/24 13:24 Pulse Ox 94 L 03/09/24 13:24 FiO2 30 02/26/24 15:10 Intake & Output 03/08/24 03/09/24 03/09/24 18:59 06:59 18:59 Intake Total 400 700 Output Total 625 Balance 400 75 Weight 97 kg 97.5 kg Intake: Intake, IV Titration 700 Amount Dextrose 5%-0.9% NaCl 1, 600 000 ml @ 50 mls/hr IV . Q20H BETTE Rx#:[id number] Piperacillin-Tazobactam 3 100 .375 gm In Sodium Chloride 0.9% 100 ml @ 25 mls/hr IVPB Q8HR BETTE Rx# :[id number] Oral 400 Output: Urine 625 Other: Voiding Method External Catheter External Catheter External Catheter # Bowel Movements 1 ABP, PAP, CO, CI - Last Documented Arterial Blood Pressure 117/42 - Exam GENERAL EXAM: Alert, cognitively impaired, 68-year-old male, sitting up in bed, on 3 L nasal cannula, in no apparent distress. HEAD: Normocephalic. EYES: Normal reaction of pupils, equal size. NOSE: Place. Clear with pink turbinates. THROAT: No erythema or exudates. NECK: No masses, no JVD. CHEST: No chest wall deformity. LUNGS: Equal air entry with no crackles, wheeze, rhonchi or dullness. CVS: S1 and S2 normal with no audible murmur, regular rhythm. ABDOMEN: Surgical incision clean dry and well-approximated. SPINE: No scoliosis or deformity SKIN: No rashes CENTRAL NERVOUS SYSTEM: Cognitively impaired, tone is normal in all 4 extremities. EXTREMITIES: There is no peripheral edema. No clubbing, no cyanosis. Peripheral pulses are intact. - Labs CBC & Chem 7: 03/09/24 04:36 03/09/24 04:36 Labs: Abnormal Lab Results - Last 24 Hours (Table) 03/08/24 03/08/24 03/09/24 Range/Units 18:33 23:31 04:36 WBC 11.0 H (3.8-10.6) k/uL RBC 3.07 L (4.30-5.90) m/uL Hgb 8.6 L (13.0-17.5) gm/dL Hct 27.0 L (39.0-53.0) % Plt Count 602 H (150-450) k/uL Neutrophils # 8.9 H (1.3-7.7) k/uL Lymphocytes # 0.9 L (1.0-4.8) k/uL Sodium (137-145) mmol/L Chloride (98-107) mmol/L Glucose (74-99) mg/dL POC Glucose (mg/dL) 138 H 138 H (70-110) mg/dL Calcium (8.4-10.2) mg/dL Total Protein (6.3-8.2) g/dL Albumin (3.5-5.0) g/dL 03/09/24 03/09/24 03/09/24 Range/Units 04:36 05:34 11:53 WBC (3.8-10.6) k/uL RBC (4.30-5.90) m/uL Hgb (13.0-17.5) gm/dL Hct (39.0-53.0) % Plt Count (150-450) k/uL Neutrophils # (1.3-7.7) k/uL Lymphocytes # (1.0-4.8) k/uL Sodium 136 L (137-145) mmol/L Chloride 109 H (98-107) mmol/L Glucose 112 H (74-99) mg/dL POC Glucose (mg/dL) 156 H 130 H (70-110) mg/dL Calcium 7.7 L (8.4-10.2) mg/dL Total Protein 4.9 L (6.3-8.2) g/dL Albumin 2.2 L (3.5-5.0) g/dL Assessment and Plan Assessment: Acute cholecystitis and the patient underwent an open cholecystectomy. The patient is currently postop day #14. Significant blood loss intraoperatively and the patient was resuscitated with fluids, colloids/albumin and received 4 units of packed RBC and one platelets. Current hemoglobin 8.6. No evidence of any acute bleeding and the output from the BRADLEY drain is minimal at this point in time. Acute enterococcal septicemia secondary to cholecystitis and the patient is currently on a combination of daptomycin and Zosyn. The patient has Enterococcus faecium VRE in the blood cultures Acute hypoxemic respiratory failure post gallbladder surgery. Patient was extubated to nasal cannula on 02/26/2024, currently on 3 L of oxygen by nasal cannula. Chest x-ray continues to show right-sided pleural effusion. Ultrasound of the right chest did reveal a 10 cm pocket Previous history of CVA History of hypertension Hyperlipidemia Lewy body dementia with Parkinson disease at baseline with significant motor rigidity and cognitive impairment More awake and alert today. Tolerating a dysphagia 1 pured diet with one-to-one supervision Plan: The patient was seen and evaluated Ultrasound of the chest, labs and medications reviewed The patient is unable to be positioned for thoracentesis He remains confused at times, unable to be performed safely No plans for thoracentesis this admission Currently stable on 3 L nasal cannula Evaluate for possible home oxygen Plan is for AFC at discharge I have personally seen and examined the patient, performed the documentation and the assessment and plan as written. Number of minutes spent on the visit: 10
--- NOTE | 2024-03-09 17:19 | P.DS ---
Providers Date of admission: 02/24/24 09:10 Expected date of discharge: 03/09/24 Attending physician: Carito Vicente MD Consults: 02/23/24 10:23 Consult Physician Urgent Consulting Provider: Wan Thorne Consult Reason/Comments: acute cholecystitis Do you want consulting provider notified?: Yes 02/24/24 10:17 Consult Physician Routine Consulting Provider: Kai Edgar Consult Reason/Comments: VRE Bacteremia Do you want consulting provider notified?: Yes Primary care physician: Stated None Hospital Course: Discharge Diagnosis: Acute hypoxic respiratory failure due to right pleural effusion VRE bacteremia likely due to acute cholecystitis status post cholecystectomy Acute blood loss anemia Acute encephalopathy Insulin-dependent diabetes Hypokalemia Lewy body dementia, chronic Parkinson's disease, chroonic Depression History of CVA History of hypertension Dyslipidemia, chronic Obstructive sleep apnea Hemorrhagic shock Ventilator dependent respiratory failure Hospital Course: Patient is a 68-year-old male with a past medical history of hypertension, hyperlipidemia, CVA, insulin-dependent diabetes mellitus, Lewy body dementia, Parkinson's disease, and obstructive sleep apnea. He presented to the emergency department 02/22/2024 with a chief complaint of chest pain. Altered facility, patient evaluation emergency department. Vital signs upon arrival show blood pressure 138/79, heart rate 90, respiratory rate 19, temperature 98.4 F, and SpO2 98% on room air. EKG showing normal sinus rhythm at 91 bpm with right bundle branch block. Chest x-ray completed negative for acute cardiopulmonary process. Labs completed and reviewed. CBC showing leukocytosis with WBC count of 14.7 otherwise normal findings. Coagulation profile showing elevated PT of 12.9, INR of 1.2, and D-dimer of 1.93. BMP unremarkable with exception of mild hyperglycemia with glucose of 179. Liver profile showing hyperbilirubinemia with elevated transaminases with total bili of 2.2, AST of 224, and alkaline phosphatase of 233. Troponin was negative at less than 0.012. CTA chest completed negative for PE. Patient was admitted under our services with consultation to cardiology. Gallbladder ultrasound was ordered and results reviewed. Radiologist reporting findings concerning for acute cholecystitis with distended gallbladder, wall thickening with pericholecystic fluid and tumefactive sludge. Consult placed to general surgeon. Patient underwent cholecystectomy. Procedure complicated by significant blood loss. Patient was subsequently moved to medical ICU for further recovery. Blood cultures 1 out of 2 growing Enterococcus, likely VRE. ID also following. Patient transferred to medical ICU. [facility] Still having further drop in hemoglobin. He has persistent fevers, CT AP ordered showing free fluid and free air with drainage tube in the gallbladder fossa, mottled gas near the drainage catheter tip, free air in the abdomen under the right diaphragm, right pleural effusion with consolidation, trace left pleural effusion, large amount of stool. PICC line in place he is currently maintained on Daptomycin 500 mg IV QD and Zosyn 3.375g IV TID with plans to continue IV antibiotics for 7 days on discharge. Restart ASA and Plavix. Patient to be discharged to [facility]. Patient does have persistent right-sided pleural effusion which is likely causing some atelectasis. He has really poor prognosis. Needs further goals of care discussion with PCP. High risk for readmission. Vital signs reviewed and stable. Physical Exam: General: Not in acute distress Derm: Warm, dry Head: Atraumatic, normocephalic, symmetric Eyes: EOMI, pupils equal and reactive, anicteric sclera Mouth: No lip lesion, mucus membranes moist Cardiovascular: S1S2 reg, no murmur Lungs: CTA bilateral, no rhonchi, no rales, no accessory muscle use, supplemental oxygen Abdominal: Soft, nontender to palpation, abdominal binder in place, BRADLEY drain in place Ext: No gross muscle atrophy, no edema, no contractures Psych: Drowsy, cooperative, oriented x 1 A total of 35 minutes of time were spent preparing this complex discharge summary. Patient was discharge on 03/09/2024 at 1:23 PM I have seen and evaluated the patient today. Discussed with the resident and agree with the residents finding and plan as documented in the resident's note. Changes highlighted in blue font. Patient Condition at Discharge: Stable Plan - Discharge Summary New Discharge Prescriptions: New DAPTOmycin [Cubicin] 500 mg IVPB Q24HR each Piperacillin-Tazobactam [Zosyn] 3.375 gm IVPB Q8HR each Continue Aspirin EC [Ecotrin Low Dose] 81 mg PO DAILY@0700 Vit C/E/Zn/Coppr/Lutein/Zeaxan [Preservision Areds 2 Softgel] 2 cap PO DAILY@0700 Escitalopram [Lexapro] 20 mg PO DAILY@0700 INSULIN ASPART (NovoLOG) [NovoLOG (formulary)] See Protocol SQ AC- BID@0700,1600 Pantoprazole [Protonix] 40 mg PO DAILY@0700 Donepezil [Aricept] 10 mg PO HS@1900 Midodrine HCl [ProAmantine] 2.5 mg PO Q8H PRN PRN Reason: Blood Pressure - Low QUEtiapine [SEROquel] 25 mg PO DAILY@1700 Loratadine 10 mg PO HS@1900 Meclizine HCl 25 mg PO HS@1900 Carbidopa-Levodopa 25-100 mg [Sinemet 25-100 mg] 1 tab PO TID@1100,1400,1700 Clopidogrel [Plavix] 75 mg PO DAILY@0700 levETIRAcetam [Keppra] 500 mg PO BID@0700,1900 Acetaminophen Tab [Tylenol] 650 mg PO Q6HR PRN PRN Reason: GENERAL DISCOMFORT Discharge Medication List Aspirin EC [Ecotrin Low Dose] 81 mg PO DAILY@0701/09/22 [History] Meclizine HCl 25 mg PO HS@189901/09/22 [History] Vit C/E/Zn/Coppr/Lutein/Zeaxan [Preservision Areds 2 Softgel] 2 cap PO DAILY@69901/09/22 [History] Carbidopa-Levodopa 25-100 mg [Sinemet 25-100 mg] 1 tab PO TID@1100,1400,1700 09/29/23 [History] Escitalopram [Lexapro] 20 mg PO DAILY@0710/12/23 [History] Clopidogrel [Plavix] 75 mg PO DAILY@69910/25/23 [History] INSULIN ASPART (NovoLOG) [NovoLOG (formulary)] See Protocol SQ AC-BID@0700,1600 10/25/23 [History] Pantoprazole [Protonix] 40 mg PO DAILY@69910/25/23 [History] Acetaminophen Tab [Tylenol] 650 mg PO Q6HR PRN 02/23/24 [History] Donepezil [Aricept] 10 mg PO HS@19002/23/24 [History] Loratadine 10 mg PO HS@19002/23/24 [History] Midodrine HCl [ProAmantine] 2.5 mg PO Q8H PRN 02/23/24 [History] QUEtiapine [SEROquel] 25 mg PO DAILY@1700 02/23/24 [History] levETIRAcetam [Keppra] 500 mg PO BID@0700,1900 02/23/24 [History] DAPTOmycin [Cubicin] 500 mg IVPB Q24HR each 03/07/24 [Rx] Piperacillin-Tazobactam [Zosyn] 3.375 gm IVPB Q8HR each 03/07/24 [Rx] Follow up Appointment(s)/Referral(s): [facility], [NON-STAFF] - As Needed ([facility] REQUESTED RN TO EDUCATE/TEACH HOW TO ADMINISTER IV ABX) [facility] [NON-STAFF] - 1 Week (Call [facility] and they will deliver your oxygen contrator) Arsalan Byers DO [Doctor of Osteopathic Medicine] - 1 Week None,Stated [Primary Care Provider] - 1-2 days (Please call a primary care provider for follow-up appointment.) [facility], [REFERRING] - As Needed Kai Edgar MD [STAFF PHYSICIAN] - 1 Week () Wan Thorne MD [STAFF PHYSICIAN] - 03/15/24 2:20 pm Patient Instructions/Handouts: Cholecystitis (GEN) Activity/Diet/Wound Care/Special Instructions: [facility] - [address], [place] [address] - Diet: NDD1 with 1:1 supervision Zosyn and Daptomycin IV for 7 days Please see pulmonology, ID, General surgery and PCP. Discharge Disposition: HOME SELF-CARE
--- NOTE | 2024-03-14 08:09 | CDI ---
Documentation Clarification Form Date: 03/14/2024 From: Ирина Coreas Phone: [phone] Admit Date: 02/24/2024 09:10:00 AM Patient Name: Matthieu Baird V Visit Number: [id number] Discharge Date: 03/09/2024 04:15:00 PM ATTENTION: The Clinical Documentation Specialists (CDI) and [facility] Coding Staff appreciate your assistance in clarifying documentation. Please respond to the clarification below the line at the bottom and electronically sign. The CDI & [facility] Coding staff will review the response and follow-up if needed. Please note: Queries are made part of the Legal Health Record. If you have any questions, please contact the author of this message via ITS. Doctor/Provider: Wan Thorne Significant oozing from the liver bed is documented in the Operative note 02/23 and patient had a laparoscopic converted to open cholecystectomy. Additional clarification is requested regarding the relationship, if any, that exists between the diagnosis and the procedure. Patients Admitting Diagnosis: Acute cholecystitis, Bacteremia, Coagulopathy Post-Operative Diagnosis: Same Procedure performed: 02/23 Laparoscopic cholecystectomy converted to open History/Risk Factors: 68-year-old male with a history of Lewy Body dementia and Parkinson's, DM2, HTN CVA who presents with concern of chest pain and Leukocytosis and elevated LFT's Clinical Indicators: 02/23 Operative report, Description of Procedure: "There were significant adhesions seen throughout the abdominal cavity mainly located along his midline scar. Due to the adhesions inside to convert the procedure to an open procedure. The gallbladder appeared grossly inflamed. There was significant oozing seen from the liver bed. The liver bed was packed and held pressure. Then using electrocautery the bed was reexamined. There was still significant oozing. At this point the liver bed had FloSeal and Surgicel pallor placed on the liver bed. This was done multiple times. The liver bed bleeding was finally stopped after approximately 45 minutes. The prostate 1000mL of blood loss occurred during the procedure." EBL: 1000cc 02/21 PT: 12.9, INR: 1.2, APTT: 25.0 D-Dimer: 1.93 Treatment: 1200cc of IV fluid in OR on 02/23 PRBCs 2units transfused 02/23, one unit 7/7 and one unit 03/01 Platelets 5units transfused once on 02/23 (1 dose =5units) What relationship, if any, exists between the diagnosis of Liver bed oozing and the procedure: [ ] Liver bed oozing is a complication of surgical procedure [ ] Liver bed oozing is related to patients co-morbid condition(s) of adhesions and coagulopathy & not a complication of the procedure [ ] Other please specify ____ [ ] Unable to determine MTDD
--- NOTE | 2024-03-14 10:50 | P.ANPRN ---
Procedure Note - Anesthesia - Invasive Line Right Arterial Line Time Out Performed: Yes Date of Procedure: 02/24/24 Time of Procedure: 14:05 Location of Patient: OR Preparation: Sterile Prep, Sterile Dressing Arterial Line Location: Radial Ultrasound Used: No Purpose - Visualization and Identification of Vasculature: No Image Stored and Saved: No Narrative: Invasive line placement per sterile protocol utilized.
== END 2024-03-09 16:15 | disposition home health service (06) | DRG 853 ==
LOC: EC 23:20 → 6NMEDSUR 02-23 03:37 → OBSVTOIN 02-24 09:10 → 2SICU 02-24 14:24 → 4SSUR 02-27 18:55
PROVIDERS: ADMIT Internal Medicine; ATTEND Internal Medicine
PROC: 5A1945Z Respiratory Ventilation, 24-96 Consecutive Hours (ICD-10-PCS; 2024-02-24)
PROC: 3E043XZ Introduction of Vasopressor into Central Vein, Percutaneous Approach (ICD-10-PCS; 2024-02-24)
PROC: 30243R1 Transfusion of Nonautologous Platelets into Central Vein, Percutaneous Approach (ICD-10-PCS; 2024-02-24)
PROC: 30243N1 Transfusion of Nonautologous Red Blood Cells into Central Vein, Percutaneous Approach (ICD-10-PCS; 2024-02-24)
PROC: 0W3P0ZZ Control Bleeding in Gastrointestinal Tract, Open Approach (ICD-10-PCS; principal; 2024-02-24 12:20)
PROC: 0FJ44ZZ Inspection of Gallbladder, Percutaneous Endoscopic Approach (ICD-10-PCS; principal; 2024-02-24 12:20)
PROC: 0FT40ZZ Resection of Gallbladder, Open Approach (ICD-10-PCS; principal; 2024-02-24 12:20)
DX: A41.81 Sepsis due to Enterococcus (principal); G93.41 Metabolic encephalopathy; J96.01 Acute respiratory failure with hypoxia; E44.0 Moderate protein-calorie malnutrition; D68.9 Coagulation defect, unspecified; F02.83 Dementia in other diseases classified elsewhere, unspecified severity, with mood disturbance; F02.84 Dementia in other diseases classified elsewhere, unspecified severity, with anxiety; J98.11 Atelectasis; J90 Pleural effusion, not elsewhere classified; K81.2 Acute cholecystitis with chronic cholecystitis; Z16.21 Resistance to vancomycin; D62 Acute posthemorrhagic anemia; K91.61 Intraoperative hemorrhage and hematoma of a digestive system organ or structure complicating a digestive system procedure; G20.A1 Parkinson's disease without dyskinesia, without mention of fluctuations; G31.83 Neurocognitive disorder with Lewy bodies; E11.65 Type 2 diabetes mellitus with hyperglycemia; F32.A Depression, unspecified; I10 Essential (primary) hypertension; Z79.4 Long term (current) use of insulin; Z68.29 Body mass index [BMI] 29.0-29.9, adult; E78.5 Hyperlipidemia, unspecified; E83.42 Hypomagnesemia; E87.6 Hypokalemia; Z71.3 Dietary counseling and surveillance; G47.33 Obstructive sleep apnea (adult) (pediatric); I45.10 Unspecified right bundle-branch block; K82.8 Other specified diseases of gallbladder; R32 Unspecified urinary incontinence; R74.01 Elevation of levels of liver transaminase levels; Z53.31 Laparoscopic surgical procedure converted to open procedure; Z91.199 Patient's noncompliance with other medical treatment and regimen due to unspecified reason; Z79.82 Long term (current) use of aspirin; Z79.02 Long term (current) use of antithrombotics/antiplatelets; Z79.899 Other long term (current) drug therapy; Z86.73 Personal history of transient ischemic attack (TIA), and cerebral infarction without residual deficits; Z59.7 Insufficient social insurance and welfare support; Z88.1 Allergy status to other antibiotic agents; Z88.5 Allergy status to narcotic agent; Z88.8 Allergy status to other drugs, medicaments and biological substances; Y83.6 Removal of other organ (partial) (total) as the cause of abnormal reaction of the patient, or of later complication, without mention of misadventure at the time of the procedure; Y92.234 Operating room of hospital as the place of occurrence of the external cause
CPT/HCPCS: 36415; 36430; 36573; 71045; 71046; 71275; 74176; 76604; 76705; 80048; 80053; 80061; 81001; 82728; 82805; 83010; 83540; 83550; 83615; 83735; 83880; 84466; 84484; 85025; 85027; 85045; 85379; 85610; 85730; 86850; 86900; 86901; 86920; 87040; 87077; 87086; 87186; 87635; 88304; 93005; 94002; 94003; 94760; 96365; 96366; 96375; 99285

== ENCOUNTER 2024-03-10 18:06 | Inpatient (IN) | payer MEDICARE, BC ==
--- NOTE | 2024-03-10 18:31 | ED ---
General Adult HPI - General Chief complaint: Shortness of Breath Stated complaint: post op comp Time Seen by Provider: 03/10/24 18:07 Source: EMS Mode of arrival: EMS - History of Present Illness Initial comments: Dictation was produced using [employer] dictation software. please excuse any grammatical, word or spelling errors. Chief Complaint: 68-year-old male with history of Parkinson's dementia presents to the ER for right-sided pleural effusion and biloma History of Present Illness: Patient is a 68-year-old male he was recently admitted to our hospital. He was initially admitted for chest pain however throughout his hospital stay he was diagnosed with acute cholecystitis and bacteremia. He had a laparoscopic cholecystectomy performed by Dr. Thorne 15 days ago. Patient had a prolonged hospital stay and was just discharged yesterday. [facility] when he was found to be short of breath and a little lethargic. Patient was transferred to [facility] where he was evaluated. Patient extensive workup including blood work and CT chest abdomen pelvis. Was found to have a large pleural effusion and biloma. Patient unable to provide history present illness due to baseline mentation. Unable to obtain ROS secondary to chronic mental status - Related Data Home Medications Medication Instructions Recorded Confirmed Aspirin EC [Ecotrin Low Dose] 81 mg PO DAILY@0701/09/22 02/23/24 Meclizine HCl 25 mg PO HS@1900 01/09/22 02/23/24 Vit C/E/Zn/Coppr/Lutein/Zeaxan 2 cap PO DAILY@69901/09/22 02/23/24 [Preservision Areds 2 Softgel] Carbidopa-Levodopa 25-100 mg 1 tab PO TID@1100,1400,1700 09/29/23 02/23/24 [Sinemet 25-100 mg] Escitalopram [Lexapro] 20 mg PO DAILY@69910/12/23 02/23/24 Clopidogrel [Plavix] 75 mg PO DAILY@69910/25/23 02/23/24 INSULIN ASPART (NovoLOG) [NovoLOG See Protocol SQ AC-BID@0700,1600 10/25/23 02/23/24 (formulary)] Pantoprazole [Protonix] 40 mg PO DAILY@0700 10/25/23 02/23/24 Acetaminophen Tab [Tylenol] 650 mg PO Q6HR PRN 02/23/24 02/23/24 Donepezil [Aricept] 10 mg PO HS@1900 02/23/24 02/23/24 Loratadine 10 mg PO HS@1900 02/23/24 02/23/24 Midodrine HCl [ProAmantine] 2.5 mg PO Q8H PRN 02/23/24 02/23/24 QUEtiapine [SEROquel] 25 mg PO DAILY@1700 02/23/24 02/23/24 levETIRAcetam [Keppra] 500 mg PO BID@0700,1900 02/23/24 02/23/24 Previous Rx's Medication Instructions Recorded DAPTOmycin [Cubicin] 500 mg IVPB Q24HR each 03/07/24 Piperacillin-Tazobactam [Zosyn] 3.375 gm IVPB Q8HR each 03/07/24 Allergies Allergy/AdvReac Type Severity Reaction Status Date / Time cephalexin Allergy Itching Verified 02/24/24 12:26 cockroach Allergy Unknown Verified 02/24/24 12:26 cyclobenzaprine Allergy Chest Pain Verified 02/24/24 12:26 morphine AdvReac Hallucinati Verified 02/24/24 12:26 ons Review of Systems ROS Statement: Those systems with pertinent positive or pertinent negative responses have been documented in the HPI. ROS Other: All systems not noted in ROS Statement are negative. Past Medical History Past Medical History: CVA/TIA, Diabetes Mellitus, Hypertension, Sleep Apnea/CPAP/BIPAP Additional Past Medical History / Comment(s): Parkinsons. diet controlled DM History of Any Multi-Drug Resistant Organisms: VRE Date of last positivie culture/infection: 02/23/24 MDRO Source:: blood Past Surgical History: Hernia Repair Additional Past Surgical History / Comment(s): benign tumor removed lt lower jaw and artifical jaw inserted, cataract- bilat, sinus surgery, carpal tunnel surgery right wrist 1970's Past Anesthesia/Blood Transfusion Reactions: Motion Sickness Past Psychological History: Anxiety Smoking Status: Never smoker Past Alcohol Use History: None Reported Past Drug Use History: None Reported - Past Family History Father Family Medical History: Cancer, Diabetes Mellitus Mother Family Medical History: CVA/TIA General Exam - General Exam Comments Initial Comments: PHYSICAL EXAM: General Impression: Alert and oriented x2/4, not in acute distress HEENT: Normocephalic atraumatic, extra-ocular movements intact, pupils equal and reactive to light bilaterally, mucous membranes moist. Cardiovascular: Heart regular rate and rhythm Chest: Not dyspneic, diminished breath sounds on the right compared to the left Abdomen: abdomen soft, mild diffuse tenderness, non-distended, no organomegaly, surgical sites clean dry and intact Musculoskeletal: Pulses present and equal in all extremities, 1+ pitting edema to the extremities Motor: no focal deficits noted Neurological: CN II-XII grossly intact, no focal motor or sensory deficits noted Skin: Intact with no visualized rashes Psych: Normal affect and mood Course Vital Signs 03/10/24 03/10/24 03/10/24 18:10 18:44 19:19 Temperature 100.1 F H Pulse Rate 85 81 Respiratory 22 18 16 Rate Blood Pressure 139/68 138/85 O2 Sat by Pulse 96 95 Oximetry - Reevaluation(s) Reevaluation #1: 03/10/24 18:28 Transfer documentation was reviewed states that patient was initially brought to [facility] for chief complaint of shortness of breath fever and altered mental status. Apparently there was some history of low oxygen saturation. Laboratory evaluation obtained. No leukocytosis. Metabolic panel within acceptable limits. Urinalysis negative. High-sensitivity troponin elevated to 13. Chest abdomen pelvis shows biloma and right-sided large right pleural effusion. Patient is an implanted PICC line and receiving antibiotics.Patient taking daptomycin and Zosyn via PICC line 03/10/24 18:33 EKG Findings - EKG Comments: EKG Findings:: EKG interpretation. Rhythm is sinus rhythm. Ventricular rate 85, parable 145, QRS 106, QTc 370. No ID prolongation, no QRS widening, no QT prolongation. Overall this EKG is unremarkable. Medical Decision Making - Medical Decision Making Was pt. sent in by a medical professional or institution (, PA, UNIVERSAL GRINDER OPERATOR, urgent care, hospital, or [facility]...) When possible be specific @ -Sent from outside hospital Did you speak to anyone other than the patient for history (EMS, parent, family, police, friend...)? What history was obtained from this source @ -Some history obtained from daughter states that she is upset with the care that her mother has been receiving here. Did you review nursing and triage notes (agree or disagree)? Why? @ -I reviewed and agree with nursing and triage notes Were old charts reviewed (outside hosp., previous admission, EMS record, old EKG, old radiological studies, urgent care reports/EKG's, [facility] records)? Report findings @ -Hospital charting from previous visit was reviewed showing that patient was admitted for chest pain and diagnosed with acute cholecystitis. His surgery was complicated by sepsis. He was also found to have bacteremia. Differential Diagnosis (chest pain, altered mental status, abdominal pain women, abdominal pain men, vaginal bleeding, musculoskeletal, weakness, fever, dyspnea, syncope, headache, dizziness, GI bleed, back pain, seizure, CVA, palpatations, mental health)? @ - EKG interpreted by me (3pts min.). @ -See above X-rays interpreted by me (1pt min.). @ -Chest x-ray shows opacification of right hemithorax CT interpreted by me (1pt min.). @ -None done U/S interpreted by me (1pt. min.). @ -None done What testing was considered but not performed or refused? (CT, X-rays, U/S, labs)? Why? @ -None What meds were considered but not given or refused? Why? @ -None Was smoking cessation discussed for >3mins.? @ -No Were there social determinants of health that impacted care today? How? (Homelessness, low income, unemployed, alcoholism, drug addiction, transportation, low edu. Level, literacy, decrease access to med. care, longterm, rehab)? @ -No Was there de-escalation of care discussed even if they declined (Discuss DNR or withdrawal of care, Hospice)? DNR status @ -No What co-morbidities impacted this encounter? (DM, HTN, Smoking, COPD, CAD, Cancer, CVA, ARF, Chemo, Hep., AIDS, mental health diagnosis, sleep apnea, morbid obesity)? @ -None Was patient admitted / discharged? Hospital course, mention meds given and route, prescriptions, significant lab abnormalities, going to OR and other pertinent info. @ -68-year-old male transferred from [facility]. He was sent here for diagnosis of postoperative biloma along with a right-sided pleural effusion. He was initially brought there for chief complaint of shortness of breath altered mental status and fever. Vital signs upon arrival shows temperature 100.1, patient does not use home oxygen however he is 96% on 5 L nasal cannula. Patient admitted Case discussed with Dr. Bess for admission. Lengthy discussion was held with patient's daughter. She states that she is a nurse at [employer] and she is very displeased with the care that her father had received here. Did you discuss the management of the patient with other professionals ( professionals i.e. , PA, UNIVERSAL GRINDER OPERATOR, lab, RT, psych nurse, social media marketing manager, monitor and storage bin tender, teacher, seaman officer, director of casework services)? Give summary @ -Case discussed with hospitalist for admission Was critical care preformed (if so, how long)? @ -No Undiagnosed new problem with uncertain prognosis? @ -No Drug Therapy requiring intensive monitoring for toxicity (Heparin, Nitro, Insulin, Cardizem)? @ -No Were any procedures done? @ -No Diagnosis/symptom? Acute, or Chronic, or Acute on Chronic? Uncomplicated (without systemic symptoms) or Complicated (systemic symptoms)? @ -Pleural effusion, biloma Side effects of treatment? @ -No Exacerbation, Progression, or Severe Exacerbation? @ -No Poses a threat to life or bodily function? How? (Chest pain, [place], [place], pneumonia, PE, COPD, DKA, ARF, appy, cholecystitis, CVA, Diverticulitis, Homicidal, Suicidal, threat to staff... and all critical care pts) @ -Yes Disposition Clinical Impression: Pleural effusion, Biloma Disposition: ADMITTED IP TO THIS [facility] Condition: Serious Referrals: Priyank Mcnulty DO [Primary Care Provider] - 1-2 days Decision Time: 19:38
--- NOTE | 2024-03-10 19:18 | XR ---
EXAMINATION TYPE: XR chest 1V portable DATE OF EXAM: 03/10/2024 7:03 PM CLINICAL INDICATION:Male, 68 years old with history of shortness of breath. COMPARISON: Chest radiograph from 03/02/2024 TECHNIQUE: XR chest 1V portable Frontal view of the chest. FINDINGS: Lungs/Pleura: Similar large right pleural effusion and near complete opacification of the right hemit horax. Similar patchy opacification overlying the left middle lung zone. Heart/mediastinum: Cardiomediastinal silhouette is stable. Musculoskeletal: No acute osseous pathology. Other findings: None IMPRESSION: 1. Redemonstrated large right-sided pleural effusion with similar near complete opacification of the right hemithorax. 2. Similar patchy opacification of the left middle lung zone may relate to an infectious/inflammatory process. Cannot exclude underlying neoplastic lesion.
[2024-03-10] MEDS ORDERED: ACETAMINOPHEN TAB 325 MG TAB PO PRN (19:31)
[2024-03-10] MEDS ORDERED: NALOXONE 0.4 MG/ML 1 ML VIAL IV PRN (19:31)
[2024-03-10] MEDS: SODIUM CHLORIDE 0.9% 1,000 ML IV SCH (21:42)
[2024-03-11 01:15] VITALS: TEMP 97.1
[2024-03-11] MEDS ORDERED: MIDODRINE 5 MG TAB PO PRN (01:21)
--- NOTE | 2024-03-11 01:27 | P.HPIM ---
History of Present Illness H&P Date: 03/10/24 Chief Complaint: pleural effusion Patient is a 68-year-old male with PMH of status post cholecystectomy and bacteremia on 02/24/2024 with prolonged hospitalization, hypertension, hyperlipidemia, CVA, insulin-dependent diabetes mellitus, Lewy body dementia, Parkinson disease, and obstructive sleep apnea. As per daughter, patient found to have altered mental status and low oxygen saturation of 84% on 3 L at health custodial facility. The patient was initially taken to [facility] where he underwent an extensive evaluation. Patient was noted to have large right-sided pleural effusion and suspected bile leak with adjacent collection (hematoma vs biloma) on CT chest, abdomen and pelvis. Patient was discharged on 03/09/2024 from [facility] after he presented to the emergency department on 02/22/2024 with a chief complaint of chest pain. Patient was noted to have acute cholecystitis and underwent a laparoscopic cholecystectomy. The stay was also complicated by blood loss anemia (requiring 5 units of PRBCs and 1 unit of platelets) and bacteremia. Patient was treated with IV antibiotics. The patient was also noted to have a large right-sided pleural effusion for which the patient was deemed to be unsafe due to his inability to maintain a stable position or cooperate for the procedure. The patient was eventually discharged to [facility] on 03/10/2024. At the time of interview, patient reports ongoing mild shortness of breath and pain in the left buttock. Collateral history is obtained from patient's daughter at the bedside. EKG in the ER shows sinus rhythm with heart rate of 85 bpm. Low QRS voltage in all leads with diffuse t-wave flattening with an incomplete right bundle branch block. Chest x-ray in the ER shows large right-sided pleural effusion with near complete opacification of the right hemithorax. Patchy provisioned opacifications of the left middle lung zone may be related to an infectious/inflammatory process. Possible underlying neoplastic lesion CT chest, abdomen, pelvis revealed findings consistent with postcholecystectomy bile leak with hematoma versus perihepatic fluid collection (suspected biloma) with large right-sided pleural effusion. Furthermore, there is patchy airspace opacities in the left upper lobe with small left pleural effusion with compressive atelectasis of the left lower lobe without a pneumothorax. The patient's laboratory evaluation from [facility] was reviewed with WBC count 11.2, hemoglobin 8.2 (similar to baseline), platelets 768, UA somewhat unremarkable, lactic acid 1.2, procalcitonin less than 0.05, sodium 136, potassium 3.4, chloride 104, CO2 27, BUN 11, creatinine 0.84, calcium 7.8, with albumin 1.7. NT proBNP is 1668 with high-sensitivity troponin I 13 (within normal range). Review of systems: Somewhat limited due to patient's mental status Social history: Tobacco: None Alcohol: None Recreational drugs: None Travel: None Occupation: Retired Family History: Noncontributory Physical examination: Vital signs reviewed General: toxic, mild distress, appears older than stated age, overweight Derm: Stage II left buttock 2 cm pressure ulcer noted with gluteal dressing in place, warm Head: atraumatic, normocephalic, symmetric Eyes: EOMI, no lid lag, anicteric sclera, pupils equal round reactive to light ENT: Nose and ears atraumatic Neck: No cervical lymphadenopathy, trachea midline, supple Mouth: no lip lesion, mucus membranes moist Cardiovascular: S1S2 reg, no murmur, positive dorsalis pedis pulse bilateral, no edema Lungs: Diminished breath sounds at the right mid and lower lung flores with some right basilar crackles, no accessory muscle use Abdominal: Laparoscopic incisions noted approximated and healing, no active drainage. Soft, nontender to palpation, no guarding Ext: strength 4/5 of bilateral UEs. Bilateral lower extremities strength is 3/5 . Sensation intact in upper and lower extremities. Patient able to move all his extremities upon command. Neuro: CN II-XI grossly intact, no gross focal neuro deficits Psych: Awake, oriented only to person and partially to place, not oriented to time, masked facies Assessment/Plan: 68-year-old male with past medical history of status post cholecystectomy and bacteremia on 02/24/2024 with prolonged hospitalization, hypertension, hyperlipidemia, CVA, insulin-dependent diabetes mellitus, Lewy body dementia, Parkinson disease, and obstructive sleep apnea. As per daughter, patient found to have altered mental status and low oxygen saturation of 84% on 3 L at health custodial facility. The patient was transferred to [facility] for urgent medical care. Patient is a transfer patient from [facility] presented to the ER with findings of large right-sided pleural effusion and biloma on CT chest, abdomen and pelvis. #Large right-sided pleural effusion, unclear etiology, hypoxic respiratory failure Consult pulmonology for possible thoracentesis (family is requesting that patient undergo further diagnostic testing to identify the cause of the pleural effusion) Continue on oxygen therapy 3 L on nasal cannula Procalcitonin levels within normal range Suspected postcholecystectomy bile leak versus hematoma General surgery consulted Case discussed with Dr Thorne who recommended no immediate intervention at this time Recent VRE bacteremia, discharged on Zosyn and daptomycin Resume Zosyn 3.375 g every 8 hourly and daptomycin 500 mg every 24 hours Hypokalemia Replace and monitor Normocytic anemia Patient's hemoglobin upon discharge was 8.6, now 8.2, prior baseline was 13 Elevated proBNP Obtain echocardiogram Cardiac monitoring Stage II decubitus ulcer Frequent turning Track for improvement Deconditioning with hx of lewy body dementia and parkinsons PT consulted Fall precautions DVT prophylaxis: Lovenox Subq The patient is admitted with an anticipated greater than 2 midnight stay for evaluation of pleural effusion CODE STATUS: Full Code Discussed with: Daughter (POA), Sister Anticipated discharge place: [facility] Past Medical History Past Medical History: CVA/TIA, Diabetes Mellitus, Hypertension, Sleep Apnea/CPAP/BIPAP Additional Past Medical History / Comment(s): Parkinsons. diet controlled DM History of Any Multi-Drug Resistant Organisms: VRE Date of last positivie culture/infection: 02/23/24 MDRO Source:: blood Past Surgical History: Hernia Repair Additional Past Surgical History / Comment(s): benign tumor removed lt lower jaw and artifical jaw inserted, cataract- bilat, sinus surgery, carpal tunnel surgery right wrist 1969' Past Anesthesia/Blood Transfusion Reactions: Motion Sickness Past Psychological History: Anxiety Smoking Status: Never smoker Past Alcohol Use History: None Reported Past Drug Use History: None Reported - Past Family History Father Family Medical History: Cancer, Diabetes Mellitus Mother Family Medical History: CVA/TIA Medications and Allergies Home Medications Medication Instructions Recorded Confirmed Type Aspirin EC [Ecotrin Low Dose] 81 mg PO DAILY@0701/09/22 02/23/24 History Meclizine HCl 25 mg PO HS@1900 01/09/22 02/23/24 History Vit C/E/Zn/Coppr/Lutein/Zeaxan 2 cap PO DAILY@0701/09/22 02/23/24 History [Preservision Areds 2 Softgel] Carbidopa-Levodopa 25-100 mg 1 tab PO TID@1100,1400,1700 09/29/23 02/23/24 History [Sinemet 25-100 mg] Escitalopram [Lexapro] 20 mg PO DAILY@0700 10/12/23 02/23/24 History Clopidogrel [Plavix] 75 mg PO DAILY@0700 10/25/23 02/23/24 History INSULIN ASPART (NovoLOG) [NovoLOG See Protocol SQ AC-BID@0700,1600 10/25/23 02/23/24 History (formulary)] Pantoprazole [Protonix] 40 mg PO DAILY@0700 10/25/23 02/23/24 History Acetaminophen Tab [Tylenol] 650 mg PO Q6HR PRN 02/23/24 02/23/24 History Donepezil [Aricept] 10 mg PO HS@1900 02/23/24 02/23/24 History Loratadine 10 mg PO HS@1900 02/23/24 02/23/24 History Midodrine HCl [ProAmantine] 2.5 mg PO Q8H PRN 02/23/24 02/23/24 History QUEtiapine [SEROquel] 25 mg PO DAILY@1700 02/23/24 02/23/24 History levETIRAcetam [Keppra] 500 mg PO BID@0700,1900 02/23/24 02/23/24 History DAPTOmycin [Cubicin] 500 mg IVPB Q24HR each 03/07/24 Rx Piperacillin-Tazobactam [Zosyn] 3.375 gm IVPB Q8HR each 03/07/24 Rx Allergies Allergy/AdvReac Type Severity Reaction Status Date / Time cephalexin Allergy Itching Verified 02/24/24 12:26 cockroach Allergy Unknown Verified 02/24/24 12:26 cyclobenzaprine Allergy Chest Pain Verified 02/24/24 12:26 morphine AdvReac Hallucinati Verified 02/24/24 12:26 ons Physical Exam Vitals: Vital Signs Temp Pulse Resp BP Pulse Ox 03/10/24 19:19 81 16 138/85 95 03/10/24 18:44 18 03/10/24 18:10 100.1 F H 85 22 139/68 96 Intake and Output 03/10/24 03/10/24 03/10/24 06:59 14:59 22:59 Other: Weight 99.79 kg
[2024-03-11] MEDS ORDERED: PIPERACILLIN-TAZOBACTAM 3.375 GM VIAL IVPB SCH (01:30)
[2024-03-11] MEDS: PIPERACILLIN-TAZOBACTAM 3.375 GM in SODIUM CHLORIDE 0.9% 100 ML IVPB SCH (01:58)
[2024-03-11 07:50] LABS: HCT 26.7 % (39.0-53.0); HGB 8.2 gm/dL (13.0-17.5); Hypochromasia Marked; MCH 27.1 pg (25.0-35.0); MCHC 30.7 g/dL (31.0-37.0); MCV 88.2 fL (80.0-100.0); Mean Platelet Volume 6.7; Platelet Count 719 k/uL (150-450); Poikilocytosis Slight; RBC 3.02 m/uL (4.30-5.90); RDW 15.2 % (11.5-15.5); WBC 10.1 k/uL (3.8-10.6)
--- NOTE | 2024-03-11 08:01 | US ---
EXAMINATION TYPE: US chest DATE OF EXAM: 03/11/2024 COMPARISON: Radiograph 03/10/2024 CLINICAL INDICATION: Male, 68 years old with history of Right pleural effusion; Hx Parkinson's. TECHNIQUE: Targeted ultrasound of the posterior lower right hemithorax EXAM MEASUREMENTS: Right Pleural Effusion pocket size: 12.9 cm Right skin surface to fluid distance: 2.4 cm Right side marked for possible thoracentesis outside the dept. Patient was rigid and unable to lean forward with 2 helpers. Patient was scanned radiograph 2023 are able to review the images in the patient?s EMR. IMPRESSIONS: Underlying sizable right pleural effusion with marking performed.
[2024-03-11 08:03] LABS: ALT 18 U/L (4-49); AST 27 U/L (17-59); African American GFR (CKD) >90 (>60 ml/min/1.73 sqM); Albumin 2.2 g/dL (3.5-5.0); Alkaline Phosphatase 79 U/L (38-126); Anion Gap 1 mmol/L; Blood Urea Nitrogen 12 mg/dL (9-20); Calcium 7.7 mg/dL (8.4-10.2); Carbon Dioxide 27 mmol/L (22-30); Chloride 109 mmol/L (98-107); Glucose 94 mg/dL (74-99); Non-African American GFR(CKD) >90 (>60 ml/min/1.73 sqM); Potassium 3.9 mmol/L (3.5-5.1); Sodium 137 mmol/L (137-145); Total Bilirubin 1.2 mg/dL (0.2-1.3)
[2024-03-11] MEDS ORDERED: DAPTOmycin 500 MG VIAL IVPB SCH (09:00)
[2024-03-11] MEDS: DAPTOmycin 500 MG in SODIUM CHLORIDE 0.9% 50 ML IVPB SCH (10:07)
[2024-03-11] MEDS: ENOXAPARIN 40 MG/0.4 ML SYRINGE SQ SCH (10:08)
[2024-03-11] MEDS: ESCITALOPRAM 20 MG TAB PO SCH (10:20)
[2024-03-11] MEDS: ASPIRIN 81 MG PO SCH (10:20)
[2024-03-11] MEDS: CLOPIDOGREL 75 MG TAB PO SCH (10:20)
[2024-03-11] MEDS: levETIRAcetam 500 MG TAB PO SCH (10:21)
[2024-03-11] MEDS: PANTOPRAZOLE 40 MG TABLET PO SCH (10:21)
[2024-03-11] MEDS: CARBIDOPA-LEVODOPA 25-100 MG 1 EACH TAB PO SCH (10:21)
--- NOTE | 2024-03-11 10:46 | CA ---
Transthoracic Echo Report Name: Matthieu Baird Age: 68 Gender: M : 1955 Exam Date: 03/11/2024 09:45 Exam Location: [facility] Ht (in): 73 Wt (lb): 220 Ordering Physician: Carito Vicente MD Attending/Referring Phys: Equipment Man Li Cordero RDCS Procedure CPT: Indications: elevated bnp Cardiac Hx: Pleural Effusion, HTN, CVA, DM Technical Quality: Good Contrast 1: Total Dose (mL): Contrast 2: Total Dose (mL): MEASUREMENTS (Male / Female) Normal Values 2D ECHO LV Diastolic Diameter PLAX 4.5 cm 4.2 - 5.9 / 3.9 - 5.3 cm LV Systolic Diameter PLAX 3.1 cm IVS Diastolic Thickness 1.1 cm 0.6 - 1.0 / 0.6 - 0.9 cm LVPW Diastolic Thickness 1.1 cm 0.6 - 1.0 / 0.6 - 0.9 cm LV Relative Wall Thickness 0.5 RV Internal Dim ED PLAX 1.6 cm LA Systolic Diameter LX 4.3 cm 3.0 - 4.0 / 2.7 - 3.8 cm LV Diastolic Volume MOD BP 78.6 cm??? 67 - 155 / 56 - 104 cm??? LV Systolic Volume MOD BP 28.0 cm??? / 19 - 49 cm??? LV Ejection Fraction MOD BP 64.4 % >= 55 % LV Cardiac Index MOD BP 1747.5 cm???/min???m??? LV Diastolic Volume MOD 4C 78.2 cm??? LV Systolic Volume MOD 4C 26.1 cm??? LV Ejection Fraction MOD 4C 66.6 % LV Cardiac Index MOD 4C 1800.3 cm???/min???m??? LV Diastolic Length 4C 7.4 cm LV Systolic Length 4C 5.1 cm LV Diastolic Volume MOD 2C 79.0 cm??? LV Systolic Volume MOD 2C 25.6 cm??? LV Ejection Fraction MOD 2C 67.6 % LV Cardiac Index MOD 2C 1846.3 cm???/min???m??? LV Diastolic Length 2C 7.5 cm LV Systolic Length 2C 6.1 cm LA Volume 64.1 cm??? 18 - 58 / 22 - 52 cm??? LA Volume Index 28.0 cm???/m??? 16 - 28 cm???/m??? M-MODE Aortic Root Diameter MM 3.0 cm LA Systolic Diameter MM 3.4 cm LA Ao Ratio MM 1.1 AV Cusp Separation MM 1.9 cm DOPPLER AV Peak Velocity 153.2 cm/s AV Peak Gradient 9.4 mmHg AV Mean Velocity 101.1 cm/s AV Mean Gradient 4.6 mmHg AV Velocity Time Integral 30.3 cm AI Peak Velocity 316.1 cm/s AI Peak Gradient 40.0 mmHg AI Pressure Half Time 835.1 ms LVOT Peak Velocity 129.4 cm/s LVOT Peak Gradient 6.7 mmHg LVOT Velocity Time Integral 30.7 cm MV Area PHT 2.5 cm??? Mitral E Point Velocity 73.4 cm/s Mitral A Point Velocity 95.2 cm/s Mitral E to A Ratio 0.8 MV Deceleration Time 303.1 ms TR Peak Velocity 298.2 cm/s TR Peak Gradient 35.6 mmHg Right Atrial Pressure 8.0 mmHg Pulmonary Artery Systolic Pressu 43.6 mmHg Right Ventricular Systolic Press 43.6 mmHg FINDINGS Left Ventricle Left ventricular ejection fraction is estimated at 60-65 %. Mildly increased septal wall thickness. Left ventricular cavity size normal. No obvious regional wall motion abnormalities. Right Ventricle Normal right ventricular size and function. Mild pulmonary hypertension. Right Atrium Mild right atrial dilatation. Left Atrium Mildly increased left atrial diameter. Mildly increased left atrial volume. Mitral Valve Structurally normal mitral valve. Moderate mitral regurgitation. Mitral annular calcification. No mitral stenosis. Aortic Valve Trileaflet aortic valve. No aortic stenosis. Mild aortic regurgitation. Tricuspid Valve Structurally normal tricuspid valve. Moderate tricuspid regurgitation. No tricuspid stenosis. Pulmonic Valve Structurally normal pulmonic valve. Trace pulmonic regurgitation. No pulmonic stenosis. Pericardium No pericardial effusion. Left pleural effusion. Aorta Normal size aortic root and proximal ascending aorta. CONCLUSIONS Normal LV size and systolic function. Mild concentric LVH. Mild pulmonary hypertension with right-sided pressures in the range of 40-45 mmHg. There is moderate mitral regurgitation mitral annular calcification. There is mild aortic insufficiency with aortic valve sclerosis but no stenosis. There is a left-sided pleural effusion. No pericardial effusion. Previewed by: Dr. Jaguar Webster MD (Electronically Signed) Final Date: 11 March 2024 10:45
[2024-03-11 11:31] VITALS: RESP 16
--- NOTE | 2024-03-11 12:04 | P.GSCN ---
History of Present Illness Consult date: 03/11/24 History of present illness: CHIEF COMPLAINT: lethargic and shortness of breath HISTORY OF PRESENT ILLNESS: This is a 68-year-old male who initially presented to [facility] with shortness of breath and lethargic. He had a computed tomography scan completed at [facility] reported findings consistent with postcholecystectomy bile leak and/or hematoma resulting in perihepatic fluid collection possible biloma a large right pleural effusion. He was transferred to [facility]. Patient had recent open cholecystectomy on 02/24/[address] Thorne. Patient did have a low-grade fever during the night. Surgical consult was placed in regards to possible biloma PAST MEDICAL HISTORY: CVA, Diabetes Mellitus, Hypertension, Sleep Apnea/CPAP/BIPAP, Parkinson's PAST SURGICAL HISTORY: hernia repair and cholecystectomy MEDICATIONS: See below ALLERGIES: See below SOCIAL HISTORY: No illicit drug use. REVIEW OF SYSTEMS: CONSTITUTIONAL: Denies fever or chills. HEENT: Denies blurred vision, vision changes, or eye pain. Denies hemoptysis CARDIOVASCULAR: Denies chest pain or pressure. RESPIRATORY: No shortness of breath. GASTROINTESTINAL: See HPI for pertinent findings HEMATOLOGIC: Denies bleeding disorders. GENITOURINARY: Denies any blood in urine or increased urinary frequency. SKIN: Denies pruitis. Denies rash. PHYSICAL EXAM: VITAL SIGNS: Reviewed GENERAL: Well-developed in no acute distress. HEENT: No sclera icterus. Extraocular movements grossly intact. Moist buccal mucosa. Head is atraumatic, normocephalic. No nasal drainage. ABDOMEN: Soft. Nondistended. mild tenderness at incision site. There was mild bloody drainage noted on bandage. No active bleeding at incision NEUROLOGIC: lethargic. But easily awakened LABORATORY DATA: WBC 10.1 Hgb 8.2 platelet 719 sodium 137 potassium 3.9 creatinine 0.63 IMAGING: computed tomography scan findings as stated above ASSESSMENT: 1. Acute on chronic cholecystitis status post open cholecystectomy on 02/24/2024. Patient had coagulopathy and had bleeding at the liver bed during surgery. Patient's BRADLEY drain had no evidence of bile. Surgicel was applied to gallbladder fossa. Patient has mild tenderness at the right upper quadrant incision site. Patient does not have a biloma. Possible hematoma. PLAN: -no surgical intervention plan -Family is considering hospice -Continue supportive care Physician Director Of Strategic Partnerships note has been reviewed by physician. Signing provider agrees with the documented findings, assessment, and plan of care. Past Medical History Past Medical History: CVA/TIA, Diabetes Mellitus, Hypertension, Sleep Apnea/CPAP/BIPAP Additional Past Medical History / Comment(s): Parkinsons. diet controlled DM History of Any Multi-Drug Resistant Organisms: VRE Year Discovered:: 02/23/24 MDRO Source:: blood Past Surgical History: Hernia Repair Additional Past Surgical History / Comment(s): benign tumor removed lt lower jaw and artifical jaw inserted, cataract- bilat, sinus surgery, carpal tunnel surgery right wrist 1969' Past Anesthesia/Blood Transfusion Reactions: Motion Sickness Past Psychological History: Anxiety Smoking Status: Never smoker Past Alcohol Use History: None Reported Past Drug Use History: None Reported - Past Family History Father Family Medical History: Cancer, Diabetes Mellitus Mother Family Medical History: CVA/TIA Medications and Allergies Home Medications Medication Instructions Recorded Confirmed Type Aspirin EC [Ecotrin Low Dose] 81 mg PO DAILY@69901/09/22 03/11/24 History Meclizine HCl 25 mg PO HS@19001/09/22 03/11/24 History Vit C/E/Zn/Coppr/Lutein/Zeaxan 2 cap PO DAILY@69901/09/22 03/11/24 History [Preservision Areds 2 Softgel] Carbidopa-Levodopa 25-100 mg 1 tab PO TID@1100,1400,1700 09/29/23 03/11/24 History [Sinemet 25-100 mg] Escitalopram [Lexapro] 20 mg PO DAILY@69910/12/23 03/11/24 History Clopidogrel [Plavix] 75 mg PO DAILY@0700 10/25/23 03/11/24 History INSULIN ASPART (NovoLOG) [NovoLOG See Protocol SQ AC-BID@0700,1600 10/25/23 03/11/24 History (formulary)] Pantoprazole [Protonix] 40 mg PO DAILY@0700 10/25/23 03/11/24 History Acetaminophen Tab [Tylenol] 650 mg PO Q6HR PRN 02/23/24 03/11/24 History Donepezil [Aricept] 10 mg PO HS@1900 02/23/24 03/11/24 History Loratadine 10 mg PO HS@1900 02/23/24 03/11/24 History Midodrine HCl [ProAmantine] 2.5 mg PO Q8H PRN 02/23/24 03/11/24 History QUEtiapine [SEROquel] 25 mg PO HS@1700 02/23/24 03/11/24 History levETIRAcetam [Keppra] 500 mg PO BID@0700,1900 02/23/24 03/11/24 History DAPTOmycin [Cubicin] 500 mg IVPB DIRECTED 03/11/24 03/11/24 History Piperacillin-Tazobactam [Zosyn] 3.375 gm IVPB DIRECTED 03/11/24 03/11/24 History Allergies Allergy/AdvReac Type Severity Reaction Status Date / Time cephalexin Allergy Itching Verified 03/11/24 10:05 cockroach Allergy Unknown Verified 03/11/24 10:05 cyclobenzaprine Allergy Chest Pain Verified 03/11/24 10:05 morphine AdvReac Hallucinati Verified 03/11/24 10:05 ons Surgical - Exam Vital Signs Temp Pulse Resp BP Pulse Ox 100.1 F H 85 22 139/68 96 03/10/24 18:10 03/10/24 18:10 03/10/24 18:10 03/10/24 18:10 03/10/24 18:10 Results - Labs 03/11/24 07:25 03/11/24 07:25 Abnormal Lab Results - Last 24 Hours (Table) 03/11/24 03/11/24 03/11/24 Range/Units 07:25 07:25 07:25 RBC 3.02 L (4.30-5.90) m/uL Hgb 8.2 L (13.0-17.5) gm/dL Hct 26.7 L (39.0-53.0) % MCHC 30.7 L (31.0-37.0) g/dL Plt Count 719 H (150-450) k/uL Chloride 109 H (98-107) mmol/L Creatinine 0.63 L (0.66-1.25) mg/dL Calcium 7.7 L (8.4-10.2) mg/dL Total Protein 5.0 L (6.3-8.2) g/dL Albumin 2.2 L (3.5-5.0) g/dL Procalcitonin 0.10 H (0.02-0.09) ng/mL Diabetes panel 03/11/24 Range/Units 07:25 Sodium 137 (137-145) mmol/L Potassium 3.9 (3.5-5.1) mmol/L Chloride 109 H (98-107) mmol/L Carbon Dioxide 27 (22-30) mmol/L BUN 12 (9-20) mg/dL Creatinine 0.63 L (0.66-1.25) mg/dL Glucose 94 (74-99) mg/dL Calcium 7.7 L (8.4-10.2) mg/dL AST 27 (17-59) U/L ALT 18 (4-49) U/L Alkaline Phosphatase 79 (38-126) U/L Total Protein 5.0 L (6.3-8.2) g/dL Albumin 2.2 L (3.5-5.0) g/dL Calcium panel 03/11/24 Range/Units 07:25 Calcium 7.7 L (8.4-10.2) mg/dL Albumin 2.2 L (3.5-5.0) g/dL Pituitary panel 03/11/24 Range/Units 07:25 Sodium 137 (137-145) mmol/L Potassium 3.9 (3.5-5.1) mmol/L Chloride 109 H (98-107) mmol/L Carbon Dioxide 27 (22-30) mmol/L BUN 12 (9-20) mg/dL Creatinine 0.63 L (0.66-1.25) mg/dL Glucose 94 (74-99) mg/dL Calcium 7.7 L (8.4-10.2) mg/dL Adrenal panel 03/11/24 Range/Units 07:25 Sodium 137 (137-145) mmol/L Potassium 3.9 (3.5-5.1) mmol/L Chloride 109 H (98-107) mmol/L Carbon Dioxide 27 (22-30) mmol/L BUN 12 (9-20) mg/dL Creatinine 0.63 L (0.66-1.25) mg/dL Glucose 94 (74-99) mg/dL Calcium 7.7 L (8.4-10.2) mg/dL Total Bilirubin 1.2 (0.2-1.3) mg/dL AST 27 (17-59) U/L ALT 18 (4-49) U/L Alkaline Phosphatase 79 (38-126) U/L Total Protein 5.0 L (6.3-8.2) g/dL Albumin 2.2 L (3.5-5.0) g/dL
--- NOTE | 2024-03-11 14:58 | P.CNPUL ---
History of Present Illness Consult date: 03/11/24 Requesting physician: Shayan Muñiz Reason for consult: pleural effusion History of present illness: Patient is a 68 year old male with PMH of status post cholecystectomy and bacteremia on 02/24/2024 with prolonged hospitalization, hypertension, hyperlipidemia, CVA, insulin-dependent diabetes mellitus, Lewy body dementia, Parkinson disease, and obstructive sleep apnea. Patient was discharged on 03/09/2024 from [facility] after he presented to the emergency department on 02/22/2024 with a chief complaint of chest pain. Patient was noted to have acute cholecystitis and underwent a laparoscopic cholecystectomy. The stay was also complicated by blood loss anemia (requiring 5 units of PRBCs and 1 unit of platelets) and bacteremia. Patient was treated with IV antibiotics. The patient was also noted to have a large right-sided pleural effusion for which the patient was deemed to be unsafe due to his inability to maintain a stable position or cooperate for the procedure. Yesterday he presented to the ER with complaints of mild shortness of breath. Today the patient was evaluated in the ER. His labs show wbc 10.1, hb 8.2, plt 719,with marked hypochromasia and slight poikilocytosis, Na 137, K 3.9, Chloride 109, BUN 12, Creatinine 0.63, calcium 7.7, Prolactin 0.10. The chest xray shows a large right sidepleural effusion with similar near complete opacificatin of the right hemithorax and a similar patchy opacifiation of the left middle lung zone. A chest ultrasound was ordered wich shows sizable right pleural effusion and marking was performed. The patient's daughter was explained that the patient needed to be stable during the procedure and that someone would have to be present here for the procedure to keep the patient calm and stable. Upon consideration of everything, family is considering hospice care. Review of Systems CONSTITUTIONAL: Denies fever or chills. HEENT: Denies blurred vision, vision changes, or eye pain. Denies hemoptysis CARDIOVASCULAR: Denies chest pain or pressure. RESPIRATORY: No shortness of breath. GASTROINTESTINAL: See HPI for pertinent findings HEMATOLOGIC: Denies bleeding disorders. GENITOURINARY: Denies any blood in urine or increased urinary frequency. SKIN: Denies pruitis. Denies rash. Past Medical History Past Medical History: CVA/TIA, Diabetes Mellitus, Hypertension, Sleep A pnea/CPAP/BIPAP Additional Past Medical History / Comment(s): Parkinsons. diet controlled DM History of Any Multi-Drug Resistant Organisms: VRE Date of last positivie culture/infection: 02/23/24 MDRO Source:: blood Past Surgical History: Hernia Repair Additional Past Surgical History / Comment(s): benign tumor removed lt lower jaw and artifical jaw inserted, cataract- bilat, sinus surgery, carpal tunnel surgery right wrist 1969' Past Anesthesia/Blood Transfusion Reactions: Motion Sickness Past Psychological History: Anxiety Smoking Status: Never smoker Past Alcohol Use History: None Reported Past Drug Use History: None Reported - Past Family History Father Family Medical History: Cancer, Diabetes Mellitus Mother Family Medical History: CVA/TIA Medications and Allergies Home Medications Medication Instructions Recorded Confirmed Type Aspirin EC [Ecotrin Low Dose] 81 mg PO DAILY@69901/09/22 03/11/24 History Meclizine HCl 25 mg PO HS@189901/09/22 03/11/24 History Vit C/E/Zn/Coppr/Lutein/Zeaxan 2 cap PO DAILY@69901/09/22 03/11/24 History [Preservision Areds 2 Softgel] Carbidopa-Levodopa 25-100 mg 1 tab PO TID@1100,1400,1700 09/29/23 03/11/24 History [Sinemet 25-100 mg] Escitalopram [Lexapro] 20 mg PO DAILY@0710/12/23 03/11/24 History Clopidogrel [Plavix] 75 mg PO DAILY@0700 10/25/23 03/11/24 History INSULIN ASPART (NovoLOG) [NovoLOG See Protocol SQ AC-BID@0700,1600 10/25/23 03/11/24 History (formulary)] Pantoprazole [Protonix] 40 mg PO DAILY@0710/25/23 03/11/24 History Acetaminophen Tab [Tylenol] 650 mg PO Q6HR PRN 02/23/24 03/11/24 History Donepezil [Aricept] 10 mg PO HS@1900 02/23/24 03/11/24 History Loratadine 10 mg PO HS@1900 02/23/24 03/11/24 History Midodrine HCl [ProAmantine] 2.5 mg PO Q8H PRN 02/23/24 03/11/24 History QUEtiapine [SEROquel] 25 mg PO HS@1700 02/23/24 03/11/24 History levETIRAcetam [Keppra] 500 mg PO BID@0700,1900 02/23/24 03/11/24 History DAPTOmycin [Cubicin] 500 mg IVPB DIRECTED 03/11/24 03/11/24 History Piperacillin-Tazobactam [Zosyn] 3.375 gm IVPB DIRECTED 03/11/24 03/11/24 History Allergies Allergy/AdvReac Type Severity Reaction Status Date / Time cephalexin Allergy Itching Verified 03/11/24 10:05 cockroach Allergy Unknown Verified 03/11/24 10:05 cyclobenzaprine Allergy Chest Pain Verified 03/11/24 10:05 morphine AdvReac Hallucinati Verified 03/11/24 10:05 ons Physical Exam Vitals: Vital Signs Temp Pulse Resp BP Pulse Ox 03/11/24 14:00 80 16 124/94 98 03/11/24 13:00 79 16 138/73 98 03/11/24 10:00 83 16 141/85 98 03/11/24 06:49 79 18 138/84 98 03/11/24 05:32 81 18 122/77 96 03/11/24 02:01 80 18 137/72 97 03/11/24 01:00 97.1 F L 03/11/24 00:38 76 96 03/10/24 22:55 82 16 148/70 95 03/10/24 19:19 81 16 138/85 95 03/10/24 18:44 18 03/10/24 18:10 100.1 F H 85 22 139/68 96 Intake and Output 03/10/24 03/11/24 03/11/24 22:59 06:59 14:59 Other: Weight 99.79 kg Vital signs reviewed General Impression: mild distress, overweight HEENT: Normocephalic atraumatic, extra-ocular movements intact, pupils equal and reactive to light bilaterally, mucous membranes moist. Cardiovascular: S1S2 reg, no murmur Chest: Not dyspneic, diminished breath sounds on the right compared to the left Lungs: Diminished breath sounds at the right mid and lower lung flores with some right basilar crackles, no accessory muscle use Abdominal: Laparoscopic incisions noted approximated and healing, no active drainage. Soft, nontender to palpation, no guardingsurgical sites clean dry and intact Musculoskeletal: Pulses present and equal in all extremities, 1+ pitting edema to the extremities Motor: no focal deficits noted Neurological: CN II-XII grossly intact, no focal motor or sensory deficits noted Skin: Intact with no visualized rashes Psych: Normal affect and mood Results - Laboratory Findings CBC and BMP: 03/11/24 07:03/11/24 07:25 Abnormal lab findings: Abnormal Labs 03/11/24 03/11/24 03/11/24 07:25 07:25 07:25 RBC 3.02 L Hgb 8.2 L Hct 26.7 L MCHC 30.7 L Plt Count 719 H Chloride 109 H Creatinine 0.63 L Calcium 7.7 L Total Protein 5.0 L Albumin 2.2 L Procalcitonin 0.10 H Assessment and Plan Assessment: Large Right sided pleural effusion Bacteremia- on IV antibiotics Status post laparoscopic cholecystectomy Parkinson disease Lewy body dementia Hypertension Obstructive sleep apnea Plan: Patients medications, labs and chest xray reviewed. Cubicin 100ml/hr Clopidogrel 75mg Carbidopa-levodopa GI prophylaxis DVY prophylaxis Family is considering hospice care. Minutes spent with the patient: 20 Time with Patient: Less than 30
--- NOTE | 2024-03-11 15:46 | P.DS ---
Providers Date of admission: 03/10/24 19:31 Expected date of discharge: 03/11/24 Attending physician: Jose Enrique Bess MD Consults: 03/10/24 18:43 Consult Physician Routine Consulting Provider: Arsalan Byers Consult Reason/Comments: pleural effusion Do you want consulting provider notified?: Yes Consult Physician Routine Consulting Provider: Wan Thorne Consult Reason/Comments: biloma Do you want consulting provider notified?: Yes 03/10/24 19:31 Consult Physician Routine Consulting Provider: Kai Edgar Consult Reason/Comments: fever Do you want consulting provider notified?: Yes Primary care physician: Priyank Mcnulty Hospital Course: Discharge Diagnosis: right sided Pleural Effusion with atelectasis acute on chronic encephalopathy History of Lewy Body Dementia and Parkinsons Stage II Decubitis gluteal Ulcer, present on admission Recent cholecystitis status post cholecystectomy and bacteremia Insulin-dependent diabetes Disability History of CVA Hospital Course: Patient is a 68-year-old male with PMH of status post cholecystectomy and bacteremia, hypertension, hyperlipidemia, CVA, insulin-dependent diabetes mellitus, Lewy body dementia, Parkinson disease, and obstructive sleep apnea. As per daughter, patient found to have altered mental status and low oxygen saturation [facility] 84[facility] The patient was initially taken to [facility] where he underwent an extensive evaluation. Patient was noted to have large right-sided pleural effusion and suspected bile leak with adjacent collection on CT chest, abdomen and pelvis. At the time of interview, patient reports ongoing mild shortness of breath and pain in the left buttock. Collateral history is obtained from patient's daughter at the bedside. EKG in the ER shows sinus rhythm with heart rate of 85 bpm. Low QRS voltage in all leads with diffuse t-wave flattening with an incomplete right bundle branch block. Chest x-ray in the ER shows large right-sided pleural effusion with near complete opacification of the right hemithorax. Patchy provisioned opacifications of the left middle lung zone may be related to an infectious/inflammatory process. Possible underlying neoplastic lesion. CT chest, abdomen, pelvis revealed findings consistent with postcholecystectomy bile leak with hematoma versus perihepatic fluid collection (suspected biloma) with large right-sided pleural effusion. Furthermore, there is patchy airspace opacities in the left upper lobe with small left pleural effusion with compressive atelectasis of the left lower lobe without a pneumothorax. The patient's laboratory evaluation from [facility] was reviewed with WBC count 11.2, hemoglobin 8.2 (similar to baseline), platelets 768, UA somewhat unremarkable, lactic acid 1.2, procalcitonin less than 0.05, sodium 136, potassium 3.4, chloride 104, CO2 27, BUN 11, creatinine 0.84, calcium 7.8, with albumin 1.7. NT proBNP is 1668 with high-sensitivity troponin I 13 (within normal range). Surgery was consulted and stated there was no biloma and that no surgical intervention was necessary. Pulmonology was consulted for possible thoracentesis, but the family ultimately decided against it. We discussed goals of care with the family and came to the conclusion to do outpatient hospice care. Certain medications, agreed by the family, have been discontinued. He is being discharged to hospice. Vital signs reviewed and stable. Physical Exam: General: toxic, mild distress, appears older than stated age, overweight Derm: Stage II left buttock 2 cm pressure ulcer noted with gluteal dressing in place, warm Head: atraumatic, normocephalic, symmetric Eyes: EOMI, no lid lag, anicteric sclera, pupils equal round reactive to light ENT: Nose and ears atraumatic Neck: No cervical lymphadenopathy, trachea midline, supple Mouth: no lip lesion, mucus membranes moist Cardiovascular: S1S2 reg, no murmur, positive dorsalis pedis pulse bilateral, no edema Lungs: Diminished breath sounds at the right mid and lower lung flores with some right basilar crackles, no accessory muscle use Abdominal: Laparoscopic incisions noted approximated and healing, no active drainage. Soft, nontender to palpation, no guarding Ext: strength 4/5 of bilateral UEs. Bilateral lower extremities strength is 3/5. Sensation intact in upper and lower extremities. Patient able to move all his extremities upon command. Neuro: CN II-XI grossly intact, no gross focal neuro deficits Psych: Awake, oriented only to person and partially to place, not oriented to time, masked facies A total of 35 minutes of time were spent preparing this complex discharge summary. Patient was discharge on March 11, 2024 at 3:04 pm. I have seen and evaluated the patient today. Discussed with the resident and agree with resident's findings and plan as documented in the resident's note. Changes highlighted in blue font. Plan - Discharge Summary New Discharge Prescriptions: Continue Pantoprazole [Protonix] 40 mg PO DAILY@0700 QUEtiapine [SEROquel] 25 mg PO HS@1700 Meclizine HCl 25 mg PO HS@1900 Carbidopa-Levodopa 25-100 mg [Sinemet 25-100 mg] 1 tab PO TID@1100,1400,1700 levETIRAcetam [Keppra] 500 mg PO BID@0700,1900 Acetaminophen Tab [Tylenol] 650 mg PO Q6HR PRN PRN Reason: GENERAL DISCOMFORT Discontinued Aspirin EC [Ecotrin Low Dose] 81 mg PO DAILY@0700 Vit C/E/Zn/Coppr/Lutein/Zeaxan [Preservision Areds 2 Softgel] 2 cap PO DAILY@0700 Escitalopram [Lexapro] 20 mg PO DAILY@0700 INSULIN ASPART (NovoLOG) [NovoLOG (formulary)] See Protocol SQ AC- BID@0700,1600 Donepezil [Aricept] 10 mg PO HS@1900 Midodrine HCl [ProAmantine] 2.5 mg PO Q8H PRN PRN Reason: Blood Pressure - Low Loratadine 10 mg PO HS@1900 DAPTOmycin [Cubicin] 500 mg IVPB DIRECTED Clopidogrel [Plavix] 75 mg PO DAILY@0700 Piperacillin-Tazobactam [Zosyn] 3.375 gm IVPB DIRECTED Discharge Medication List Meclizine HCl 25 mg PO HS@1900 01/09/22 [History] Carbidopa-Levodopa 25-100 mg [Sinemet 25-100 mg] 1 tab PO TID@1100,1400,1700 09/29/23 [History] Pantoprazole [Protonix] 40 mg PO DAILY@0700 10/25/23 [History] Acetaminophen Tab [Tylenol] 650 mg PO Q6HR PRN 02/23/24 [History] QUEtiapine [SEROquel] 25 mg PO HS@1700 02/23/24 [History] levETIRAcetam [Keppra] 500 mg PO BID@0700,1900 02/23/24 [History] Patient Instructions/Handouts: Hospice (DC) Discharge Disposition: HOME WITH HOSPICE
[2024-03-11 18:00] VITALS: PULSE 87
[2024-03-11 18:02] VITALS: BP 150/76
[2024-03-11] MEDS ORDERED: MECLIZINE 25 MG TAB PO SCH (19:00)
[2024-03-11] MEDS ORDERED: DONEPEZIL 10 MG TAB PO SCH (19:00)
--- NOTE | 2024-03-12 09:26 | P.CONS ---
History of Present Illness - Reason for Consult Consult date: 03/11/24 Fever Requesting physician: Shayan Muñiz - Chief Complaint Lethargy and shortness of breath x few days - History of Present Illness Patient is a 68-year-old male with a past medical history significant for diabetes mellitus hypertension sleep apnea CVA TIA in this patient who was recently admitted to the hospital with acute cholecystitis and did have VRE ba cteremia requiring surgery and IV antibiotic therapy follow-up blood culture negative patient did develop large right-sided effusion for the patient was evaluated by pulmonary recommended no drainage patient was subsequently [facility] the patient has been sent back to the hospital for evaluation of increasing shortness of breath and the patient was noted to be slightly lethargic patient subsequently was sent to [facility] for further evaluation and the patient was noticed to have large right-sided effusion and biloma for the patient was sent back to [facility] for pulmonary and surgical evaluation on presentation to the hospital fernandez ent did have low-grade fever 100.1 F patient was not tachycardic hypotensive he was mildly hypoxic currently on 3 L nasal oxygen patient did have white count of 10.1 creatinine 0.63 liver enzymes are normal procalcitonin 0.10 patient has been started back on daptomycin and Zosyn infectious he was consulted for further management of antibiotic therapy patient has been complaining of feeling weak complaining of shortness of breath and some chest pain about #25 any further denies any abdominal pain no nausea no vomiting or diarrhea Review of Systems Positive point and negatives has been mentioned in the HPI, complete review of systems was performed and all other systems are negative Past Medical History Past Medical History: CVA/TIA, Diabetes Mellitus, Hypertension, Sleep Apnea/CPAP/BIPAP Additional Past Medical History / Comment(s): Parkinsons. diet controlled DM History of Any Multi-Drug Resistant Organisms: VRE Year Discovered:: 02/23/24 MDRO Source:: blood Past Surgical History: Hernia Repair Additional Past Surgical History / Comment(s): benign tumor removed lt lower jaw and artifical jaw inserted, cataract- bilat, sinus surgery, carpal tunnel surgery right wrist 1969's Past Anesthesia/Blood Transfusion Reactions: Motion Sickness Past Psychological History: Anxiety Smoking Status: Never smoker Past Alcohol Use History: None Reported Past Drug Use History: None Reported - Past Family History Father Family Medical History: Cancer, Diabetes Mellitus Mother Family Medical History: CVA/TIA Medications and Allergies Home Medications Medication Instructions Recorded Confirmed Type Meclizine HCl 25 mg PO HS@1900 01/09/22 03/11/24 History Carbidopa-Levodopa 25-100 mg 1 tab PO TID@1100,1400,1700 09/29/23 03/11/24 History [Sinemet 25-100 mg] Pantoprazole [Protonix] 40 mg PO DAILY@0700 10/25/23 03/11/24 History Acetaminophen Tab [Tylenol] 650 mg PO Q6HR PRN 02/23/24 03/11/24 History QUEtiapine [SEROquel] 25 mg PO HS@1700 02/23/24 03/11/24 History levETIRAcetam [Keppra] 500 mg PO BID@0700,1900 02/23/24 03/11/24 History Allergies Allergy/AdvReac Type Severity Reaction Status Date / Time cephalexin Allergy Itching Verified 03/11/24 10:05 cockroach Allergy Unknown Verified 03/11/24 10:05 cyclobenzaprine Allergy Chest Pain Verified 03/11/24 10:05 morphine AdvReac Hallucinati Verified 03/11/24 10:05 ons Physical Exam Vitals: Vital Signs Temp Pulse Resp BP Pulse Ox 03/11/24 10:00 83 16 141/85 98 03/11/24 06:49 79 18 138/84 98 03/11/24 05:32 81 18 122/77 96 03/11/24 02:01 80 18 137/72 97 03/11/24 01:00 97.1 F L 03/11/24 00:38 76 96 03/10/24 22:55 82 16 148/70 95 03/10/24 19:19 81 16 138/85 95 03/10/24 18:44 18 03/10/24 18:10 100.1 F H 85 22 139/68 96 Intake and Output 03/10/24 03/11/24 03/11/24 22:59 06:59 14:59 Other: Weight 99.79 kg GENERAL DESCRIPTION: Elderly male lying in bed, no distress. No tachypnea or accessory muscle of respiration use. HEENT: Shows Pallor , no scleral icterus. Oral mucous membrane is dry. No pharyngeal erythema or thrush NECK: Trachea central, no thyromegaly. LUNGS: Unlabored breathing. Decreased breath sound the base HEART: S1, S2, regular rate and rhythm. No loud murmur ABDOMEN: Soft, no tenderness , EXTREMITIES: No edema of feet. SKIN: No rash, no masses palpable. NEUROLOGICAL: The patient is awake, alert, mood and affect normal. Results CBC & Chem 7: 03/11/24 07:25 03/11/24 07:25 Labs: Abnormal Lab Results - Last 24 Hours (Table) 03/11/24 03/11/24 03/11/24 Range/Units 07:25 07:25 07:25 RBC 3.02 L (4.30-5.90) m/uL Hgb 8.2 L (13.0-17.5) gm/dL Hct 26.7 L (39.0-53.0) % MCHC 30.7 L (31.0-37.0) g/dL Plt Count 719 H (150-450) k/uL Chloride 109 H (98-107) mmol/L Creatinine 0.63 L (0.66-1.25) mg/dL Calcium 7.7 L (8.4-10.2) mg/dL Total Protein 5.0 L (6.3-8.2) g/dL Albumin 2.2 L (3.5-5.0) g/dL Procalcitonin 0.10 H (0.02-0.09) ng/mL Assessment and Plan (1) Fever Status: Acute Code(s): R50.9 - FEVER, UNSPECIFIED SNOMED Code(s): 686551841 (2) Pleural effusion Status: Acute Code(s): J90 - PLEURAL EFFUSION, NOT ELSEWHERE CLASSIFIED SNOMED Code(s): 02805951 Plan: 1patient presented to hospital with weakness lethargy increasing shortness of breath and this patient who did have a large right-sided pleural effusion that was diagnosed on his last admission however pulmonary recommended against drainage now with a low-grade fever patient likely benefit from thoracocentesis and fluid sent for analysis to rule out empyema 2patient to continue with the Zosyn and daptomycin while waiting for the workup to be completed Multiple family members at the bedside questions Answered We will follow on clinical condition and cultures to further adjust medication if needed Thank you for this consultation we will follow the patient along with you Dictation was produced using [employer] software. please excuse any grammatical, word or spelling errors. Time with Patient: Greater than 30
== END 2024-03-11 18:00 | disposition hospice, home (50) | DRG 186 ==
LOC: EC 18:06 → 3SCARD 19:31 → 5NMEDONC 03-11 15:05
PROVIDERS: ADMIT Student in an Organized Health Care Education/Training Program; ATTEND Student in an Organized Health Care Education/Training Program
DX: J90 Pleural effusion, not elsewhere classified (principal); J96.01 Acute respiratory failure with hypoxia; G93.49 Other encephalopathy; J98.11 Atelectasis; D50.0 Iron deficiency anemia secondary to blood loss (chronic); G31.83 Neurocognitive disorder with Lewy bodies; F02.80 Dementia in other diseases classified elsewhere, unspecified severity, without behavioral disturbance, psychotic disturbance, mood disturbance, and anxiety; Z90.49 Acquired absence of other specified parts of digestive tract; E11.9 Type 2 diabetes mellitus without complications; E78.5 Hyperlipidemia, unspecified; G47.33 Obstructive sleep apnea (adult) (pediatric); Z86.73 Personal history of transient ischemic attack (TIA), and cerebral infarction without residual deficits; I10 Essential (primary) hypertension; G20.A1 Parkinson's disease without dyskinesia, without mention of fluctuations; I45.10 Unspecified right bundle-branch block; R50.9 Fever, unspecified; R00.0 Tachycardia, unspecified; I95.9 Hypotension, unspecified; I08.3 Combined rheumatic disorders of mitral, aortic and tricuspid valves; L89.152 Pressure ulcer of sacral region, stage 2; Z79.02 Long term (current) use of antithrombotics/antiplatelets; Z79.4 Long term (current) use of insulin; Z79.82 Long term (current) use of aspirin; Z79.899 Other long term (current) drug therapy; Z88.1 Allergy status to other antibiotic agents
CPT/HCPCS: 71045; 76604; 80053; 84145; 85027; 93005; 93306; 96365; 96366; 96367; 96372; 99285